=== PATIENT | male | born 1935 | race African-American/Black ===

== ENCOUNTER 2016-04-14 11:56 | Inpatient (IN) | payer OTHER ==
[2016-04-14 13:37] VITALS: BMI 36.6
--- NOTE | 2016-04-14 14:11 | HP ---
CIWA Score - CIWA Score Nausea/Vomitin Muscle Tremors: 3 Anxiety: 3 Agitation: 2 Paroxysmal Sweats: 2 Orientation: 0-Oriented Tacttile Disturbances: 2-Mild Itch/Numbness/Burn Auditory Disturbances: 2-Mild Harshness/Frighten Visual Disturbances: 2-Mild Sensitivity Headache: 2-Mild CIWA-Ar Total Score: 21 Admission ROS BHS - HPI Chief Complaint: I AM HERE FOR THE HELP TO STOP DRINKING Allergies/Adverse Reactions: Allergies Allergy/AdvReac Type Severity Reaction Status Date / Time No Known Allergies Allergy Verified 04/14/16 14:05 History of Present Illness: THIS 81 YEARS OLD MALE WITH ALCOHOL DEPENDENCE,WITHDRAWAL SYMPTOM,NEVER BEEN IN DETOX BEFORE, SEEN IN [facility] LAST NIGHT REFER FOR DETOX HTN FREQUENT FALL BORDERLINE DM GLAUCOMA INSOMNIA Exam Limitations: No Limitations - Ebola screening Have you traveled outside of the country in the last 21 days: No Have you been sick,other than usual withdrawal symptoms: No - Review of Systems Constitutional: Loss of Appetite, Malaise, Night Sweats, Changes in sleep EENT: reports: Nose Congestion Respiratory: reports: Other (ASTHMA) Cardiac: reports: No Symptoms Reported GI: reports: Nausea, Poor Appetite, Abdominal cramping : reports: No Symptoms Reported Musculoskeletal: reports: Back Pain, Muscle Pain Integumentary: reports: Dryness Neuro: reports: Headache, Tremors Endocrine: reports: No Symptoms Reported Hematology: reports: No Symptoms Reported Psychiatric: reports: other (INSOMNIA) Patient History - Patient Medical History Hx Anemia: No Hx Asthma: Yes (ON ALBUTEROL INHALER) Hx Chronic Obstructive Pulmonary Disease (COPD): No Hx Cancer: No Hx Cardiac Disorders: No Hx Congestive Heart Failure: No Hx Hypertension: Yes Hx Hypercholesterolemia: No Hx Pacemaker: No HX Cerebrovascular Accident: No Hx Seizures: No Hx Dementia: No Hx Diabetes: Yes (BODERLINE) Hx Gastrointestinal Disorders: No Hx Liver Disease: No Hx Genitourinary Disorders: No Hx Sexually Transmitted Disorders: No Hx Renal Disease (ESRD): No Hx Thyroid Disease: No Hx Human Immunodeficiency Virus (HIV): (NEVER BEEN TESTED BEFORE) Hx Hepatitis C: No Hx Depression: No Hx Suicide Attempt: No Hx Bipolar Disorder: No Hx Schizophrenia: No Other Medical History: INSOMNIA,NO SUICIDAL,NO HOMICIDAL - Patient Surgical History Hx Orthopedic Surgery: Yes (RIGHT KNEE REPLACEMENT IN 2005) - PPD History Previous Implant?: Yes Documented Results: Negative w/proof Implanted On Prior [facility] Admission?: No PPD to be Administered?: Yes - Smoking Cessation Smoking history: Never smoked - Substance & Tx. History Hx Alcohol Use: Yes Hx Substance Use: No Substance Use Type: Alcohol Hx Substance Use Treatment: No - Substances Abused Alcohol Route: Oral Frequency: Daily Amount used: 1-2 PINTS VODKA Age of first use: 17 Date of Last Use: 04/12/16 Family Disease History - Family Disease History Family Disease History: Other: Brother (ALCOHOL,) Admission Physical Exam [facility] - Vital Signs Vital Signs: Vital Signs - 24 hr 04/14/16 04/14/16 13:36 13:37 Temperature 97.4 F L 97.4 F L Pulse Rate 110 H 110 H Respiratory 20 20 Rate Blood Pressure 162/96 162/96 - Physical General Appearance: Yes: Moderate Distress, Tremorous, Irritable, Sweating, Anxious HEENTM: Yes: Nasal Congestion, Other (GLAUCOMA) Respiratory: Yes: Lungs Clear Neck: Yes: Within Normal Limits Breast: Yes: Within Normal Limits Cardiology: Yes: Tachycardia Abdominal: Yes: Normal Bowel Sounds, Non Tender, Flat, Soft Genitourinary: Yes: Within Normal Limits Back: Yes: Muscle Spasm Musculoskeletal: Yes: Muscle Pain Extremities: Yes: Tremors, Other (S/P RIGHT KNEE REPLACEMENT) 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 NML intact, Fully Oriented, Alert, Motor Strength 5/5 Integumentary: Yes: Dry Lymphatic: Yes: Within Normal Limits - Diagnostic (1) Alcohol dependence with uncomplicated withdrawal Current Visit: Yes Status: Acute (2) Syncope Current Visit: Yes Status: Acute (3) Frequent falls Current Visit: Yes Status: Acute (4) Essential hypertension Current Visit: Yes Status: Acute (5) Glaucoma, both eyes Current Visit: Yes Status: Acute (6) Insomnia Current Visit: Yes Status: Acute (7) Asthma Current Visit: Yes Status: Acute Cleared for Admission [facility] - Detox or Rehab [facility] Level of Care: Medically Managed Detox Regimen/Protocol: Librium [facility] Breath Alcohol Content Breath Alcohol Content: 0 Urine Drug Screen - Results Drug Screen Negative: Yes
[2016-04-14] MEDS ORDERED: diphenhydrAMINE HCL 50 MG CAPSULE PO PRN (14:45)
[2016-04-14] MEDS ORDERED: MAG HYDROX/AL HYDROX/SIMETH 30 ML UNIT-DOSE CUP PO PRN (14:45)
[2016-04-14] MEDS ORDERED: P-EPHED 60MG/TRIPROLIDI 2.5MG TABLET PO PRN (14:45)
[2016-04-14] MEDS ORDERED: MAGNESIUM HYDROX 2400MG/30ML ORAL SUSPENSION 30 ML CUP PO PRN (14:45)
[2016-04-14] MEDS ORDERED: IBUPROFEN 400 MG TABLET (FP) PO PRN (14:45)
[2016-04-14] MEDS ORDERED: ACETAMINOPHEN 325 MG TABLET (FP) PO PRN (14:45)
[2016-04-14] MEDS ORDERED: MENTHOL/PHENOL 1 EACH UD MM PRN (14:45)
[2016-04-14] MEDS ORDERED: MAGNESIUM CITRATE 300 ML BOTTLE PO PRN (14:45)
[2016-04-14] MEDS ORDERED: guaiFENesin/D-METHORPHAN HB 10 ML UNIT-DOSE CUPS PO PRN (14:45)
[2016-04-14] MEDS ORDERED: LOPERAMIDE HCL 2 MG CAPSULE PO PRN (14:45)
[2016-04-14] MEDS ORDERED: chlordiazePOXIDE HCL 25 MG CAPSULE PO PRN (14:45)
[2016-04-14] MEDS ORDERED: chlordiazePOXIDE HCL 25 MG CAPSULE PO ONE (15:18)
[2016-04-14] MEDS: chlordiazePOXIDE HCL 25 MG CAPSULE PO SCH ×2 (17:21→22:19)
[2016-04-14 20:53] LABS: URINE APPEARANCE CLEAR; URINE BILIRUBIN NEGATIVE (NEGATIVE); URINE COLOR LT. YELLOW; URINE GLUCOSE (UA) NEGATIVE (NEGATIVE); URINE KETONE TRACE (NEGATIVE); URINE LEUK ESTERASE NEGATIVE (NEGATIVE); URINE NITRITE NEGATIVE (NEGATIVE); URINE UROBILINOGEN 0.2 E.U/dl E.U./dl (0.2-1.0)
[2016-04-14 21:02] LABS: URINE BLOOD 1+ (NEGATIVE); URINE PROTEIN 1+ (NEGATIVE)
[2016-04-14] MEDS: THIAMINE HCL 100 MG TABLET (FP) PO SCH (22:19)
[2016-04-14] MEDS: ALBUTEROL SO4 6.7 GM HFA INHALER IH PRN (22:26)
[2016-04-14] MEDS: LATANOPROST 0.005% OPHTH SOLN 2.5ML BOTTLE OU SCH (22:26)
[2016-04-14 22:27] LABS: URINE RBC 2 /hpf (0-3); URINE WBC 3 /hpf (3-5)
[2016-04-14 22:28] LABS: URINE BACTERIA RARE /hpf (NONE SEEN); URINE HYALINE CAST 3 /lpf; URINE MUCUS RARE
[2016-04-15] MEDS: chlordiazePOXIDE HCL 25 MG CAPSULE PO SCH ×4 (05:49→22:22)
[2016-04-15 10:09] LABS: MCH 29.3 pg (25.7-33.7); MCHC 32.6 g/dl (32.0-35.9); MEAN CELL VOLUME 89.9 fl (80-96); MEAN PLT VOLUME 8.9 fl (7.5-11.1); PLATELET COUNT 255 K/MM3 (134-434); RDW 14.9 % (11.9-15.9); WHITE BLOOD COUNT 7.6 K/mm3 (4.0-10.0)
[2016-04-15 10:26] LABS: ALBUMIN 3.6 g/dl (3.4-5.0); ALK PHOS 98 U/L (45-117); ANION GAP 13 (8-16); BILIRUBIN,TOTAL 0.7 mg/dL (0.2-1.0); CALCIUM 8.7 mg/dL (8.5-10.1); CO2 26 mmol/L (21-32); CREATININE 1.1 mg/dL (0.7-1.3); GLUCOSE,RANDOM 165 mg/dL (74-106); SGOT/AST 106 U/L (15-37); SGPT/ALT 100 U/L (12-78); TOT PROT 7.3 g/dl (6.4-8.2)
[2016-04-15] MEDS: PRENATAL VITAMINS W/ FOLIC ACID TABLET (FP) PO SCH (10:33)
[2016-04-15] MEDS: NIFEdipine E.R 60 MG TABLET (UD) PO SCH (10:33)
[2016-04-15] MEDS: CARVEDILOL 25 MG TABLET (FP) PO SCH (10:33)
--- NOTE | 2016-04-15 11:18 | PN ---
[facility] CIWA - CIWA Score Nausea/Vomitin-No Nausea/No Vomiting Muscle Tremors: 4-Moderate,w/Arms Extend Anxiety: 4-Mod. Anxious/Guarded Agitation: 4-Moderately Restless Paroxysmal Sweats: 1-Minimal Palms Moist Orientation: 0-Oriented Tacttile Disturbances: 3-Moderate Itch/Numb/Burn Auditory Disturbances: 0-None Visual Disturbances: 0-None Headache: 0-None Present CIWA-Ar Total Score: 16 BHS Progress Note (SOAP) Subjective: ANXIETY,SLIGHT TREMORS, SWEATS. Objective: 04/15/16 11:17 Vital Signs Temperature 98.3 F 04/15/16 09:51 Pulse Rate 72 04/15/16 09:51 Respiratory Rate 18 04/15/16 09:51 Blood Pressure 151/97 04/15/16 09:51 O2 Sat by Pulse Oximetry (%) Laboratory Last Values WBC 7.6 K/mm3 (4.0-10.0) 04/15/16 06:00 RBC 5.35 M/mm3 (4.00-5.60) 04/15/16 06:00 Hgb 15.7 GM/dL (11.7-16.9) 04/15/16 06:00 Hct 48.0 % (35.4-49) 04/15/16 06:00 MCV 89.9 fl (80-96) 04/15/16 06:00 MCHC 32.6 g/dl (32.0-35.9) 04/15/16 06:00 RDW 14.9 % (11.9-15.9) 04/15/16 06:00 Plt Count 255 K/MM3 (134-434) 04/15/16 06:00 MPV 8.9 fl (7.5-11.1) 04/15/16 06:00 Sodium 135 mmol/L (136-145) L 04/15/16 06:00 Potassium 3.7 mmol/L (3.5-5.1) 04/15/16 06:00 Chloride 96 mmol/L (98-107) L 04/15/16 06:00 Carbon Dioxide 26 mmol/L (21-32) 04/15/16 06:00 Anion Gap 13 (8-16) 04/15/16 06:00 BUN 10 mg/dL (7-18) 04/15/16 06:00 Creatinine 1.1 mg/dL (0.7-1.3) 04/15/16 06:00 Creat Clearance w eGFR > 60 (>60) 04/15/16 06:00 Random Glucose 165 mg/dL (74-106) H 04/15/16 06:00 Calcium 8.7 mg/dL (8.5-10.1) 04/15/16 06:00 Total Bilirubin 0.7 mg/dL (0.2-1.0) 04/15/16 06:00 AST 106 U/L (15-37) H 04/15/16 06:00 ALT 100 U/L (12-78) H 04/15/16 06:00 Alkaline Phosphatase 98 U/L (45-117) 04/15/16 06:00 Total Protein 7.3 g/dl (6.4-8.2) 04/15/16 06:00 Albumin 3.6 g/dl (3.4-5.0) 04/15/16 06:00 Urine Color Lt. yellow 04/14/16 21:00 Urine Appearance Clear 04/14/16 21:00 Urine pH 6.0 (5.0-8.0) 04/14/16 21:00 Ur Specific [place] >= 1.030 (1.001-1.035) 04/14/16 21:00 Urine Protein 1+ (NEGATIVE) H 04/14/16 21:00 Urine Glucose (UA) Negative (NEGATIVE) 04/14/16 21:00 Urine Ketones Trace (NEGATIVE) H 04/14/16 21:00 Urine Blood 1+ (NEGATIVE) H 04/14/16 21:00 Urine Nitrite Negative (NEGATIVE) 04/14/16 21:00 Urine Bilirubin Negative (NEGATIVE) 04/14/16 21:00 Urine Urobilinogen 0.2 e.u/dl E.U./dl (0.2-1.0) 04/14/16 21:00 Ur Leukocyte Esterase Negative (NEGATIVE) 04/14/16 21:00 Urine RBC 2 /hpf (0-3) 04/14/16 21:00 Urine WBC 3 /hpf (3-5) 04/14/16 21:00 Ur Epithelial Cells Rare /hpf (FEW) 04/14/16 21:00 Urine Bacteria Rare /hpf (NONE SEEN) 04/14/16 21:00 Hyaline Casts 3 /lpf 04/14/16 21:00 Urine Mucus Rare 04/14/16 21:00 Assessment: 04/15/16 11:18 WITHDRAWAL SX Plan: CONTINUE DETOX
--- NOTE | 2016-04-15 16:06 | CONSULT ---
[facility] Psychiatric Consult - Data Date of interview: 04/15/16 Admission source: [facility] Identifying data: First admission to [facility] for this 81 y/o AA male seeking detox treatment on for alcohol dependence.Patient is ,a retired [employer],a father of five,domiciled (living with ) and supported on Social Security benefits. Substance Abuse History: - Smoking Cessation. Smoking history: Never smoked. - Substance & Tx. History. Hx Alcohol Use: Yes. Hx Substance Use: No. Substance Use Type: Alcohol. Hx Substance Use Treatment: No. - Substances Abused. Alcohol. Route: Oral. Frequency: Daily. Amount used: 1-2 PINTS VODKA. Age of first use: 17. Date of Last Use: 04/12/16. Confirmed by patient. Medical History: Significant for hypertension,diabetes mellitus,glaucoma, bronchial asthma and a history of right knee replacement (2005). Psychiatric History: Patient denies. Physical/Sexual Abuse/Trauma History: Patient denies. Additional Comment: Drug Screen is negative. Mental Status Exam - Mental Status Exam Alert and Oriented to: Time, Place, Person Cognitive Function: Grossly Intact Patient Appearance: Well Groomed Mood: Withdrawn Affect: Appropriate, Normal Range Patient Behavior: Fatigued, Talkative (well mannered), Appropriate, Cooperative Speech Pattern: Clear, Appropriate Voice Loudness: Normal Thought Process: Goal Oriented Hallucinations: Denies Suicidal Ideation: Denies Homicidal Ideation: Denies Insight/Judgement: Poor Sleep: Poorly, Difficulty falling asleep Appetite: Fair Gait/Station: Other (prone to frequent falls as per [facility] report;wheelchair made available to the patient for his movements around the unit) Psychiatric Findings - Problem List ([place] 1, 2,3) (1) Alcohol dependence with uncomplicated withdrawal Current Visit: Yes Status: Acute (2) Asthma Current Visit: Yes Status: Chronic (3) Essential hypertension Current Visit: Yes Status: Chronic (4) Frequent falls Current Visit: Yes Status: Chronic (5) Glaucoma, both eyes Current Visit: Yes Status: Chronic (6) Insomnia Current Visit: Yes Status: Chronic (7) Syncope Current Visit: Yes Status: Chronic Comment: History. - Initial Treatment Plan Initial Treatment Plan: Psychoeducation.detoxification.Insomnia is addressed with benadryl 25 mg po hs prn at bedtime.Side effects/benefits discussed with patient.He agrees with this plan of care.Fall precautions.Observation.
[2016-04-15] MEDS: ALBUTEROL SO4 6.7 GM HFA INHALER IH PRN (18:39)
[2016-04-15] MEDS ORDERED: diphenhydrAMINE HCL 25 MG CAPSULE (FP) PO PRN (22:00)
[2016-04-15] MEDS: hydrOXYzine PAMOATE 25 MG CAPSULE (FP) PO PRN (22:22)
[2016-04-15] MEDS: cloNIDine HCL 0.1 MG TABLET PO PRN (22:22)
[2016-04-15] MEDS: THIAMINE HCL 100 MG TABLET (FP) PO SCH (22:22)
[2016-04-15] MEDS: LATANOPROST 0.005% OPHTH SOLN 2.5ML BOTTLE OU SCH (22:24)
[2016-04-16] MEDS: chlordiazePOXIDE HCL 25 MG CAPSULE PO SCH ×2 (06:06→10:51)
--- NOTE | 2016-04-16 10:06 | PN ---
[facility] CIWA - CIWA Score Nausea/Vomitin-No Nausea/No Vomiting Muscle Tremors: 4-Moderate,w/Arms Extend Anxiety: 4-Mod. Anxious/Guarded Agitation: 4-Moderately Restless Paroxysmal Sweats: 1-Minimal Palms Moist Orientation: 0-Oriented Tacttile Disturbances: 3-Moderate Itch/Numb/Burn Auditory Disturbances: 0-None Visual Disturbances: 0-None Headache: 0-None Present CIWA-Ar Total Score: 16 BHS Progress Note (SOAP) Subjective: ANXIETY,SLIGHT TREMORS,. Objective: 04/16/16 10:05 Vital Signs Temperature 96.9 F L 04/16/16 10:04 Pulse Rate 96 H 04/16/16 10:04 Respiratory Rate 20 04/16/16 10:04 Blood Pressure 153/93 04/16/16 10:04 O2 Sat by Pulse Oximetry (%) Laboratory Last Values WBC 7.6 K/mm3 (4.0-10.0) 04/15/16 06:00 RBC 5.35 M/mm3 (4.00-5.60) 04/15/16 06:00 Hgb 15.7 GM/dL (11.7-16.9) 04/15/16 06:00 Hct 48.0 % (35.4-49) 04/15/16 06:00 MCV 89.9 fl (80-96) 04/15/16 06:00 MCHC 32.6 g/dl (32.0-35.9) 04/15/16 06:00 RDW 14.9 % (11.9-15.9) 04/15/16 06:00 Plt Count 255 K/MM3 (134-434) 04/15/16 06:00 MPV 8.9 fl (7.5-11.1) 04/15/16 06:00 Sodium 135 mmol/L (136-145) L 04/15/16 06:00 Potassium 3.7 mmol/L (3.5-5.1) 04/15/16 06:00 Chloride 96 mmol/L (98-107) L 04/15/16 06:00 Carbon Dioxide 26 mmol/L (21-32) 04/15/16 06:00 Anion Gap 13 (8-16) 04/15/16 06:00 BUN 10 mg/dL (7-18) 04/15/16 06:00 Creatinine 1.1 mg/dL (0.7-1.3) 04/15/16 06:00 Creat Clearance w eGFR > 60 (>60) 04/15/16 06:00 Random Glucose 165 mg/dL (74-106) H 04/15/16 06:00 Calcium 8.7 mg/dL (8.5-10.1) 04/15/16 06:00 Total Bilirubin 0.7 mg/dL (0.2-1.0) 04/15/16 06:00 AST 106 U/L (15-37) H 04/15/16 06:00 ALT 100 U/L (12-78) H 04/15/16 06:00 Alkaline Phosphatase 98 U/L (45-117) 04/15/16 06:00 Total Protein 7.3 g/dl (6.4-8.2) 04/15/16 06:00 Albumin 3.6 g/dl (3.4-5.0) 04/15/16 06:00 Urine Color Lt. yellow 04/14/16 21:00 Urine Appearance Clear 04/14/16 21:00 Urine pH 6.0 (5.0-8.0) 04/14/16 21:00 Ur Specific [place] >= 1.030 (1.001-1.035) 04/14/16 21:00 Urine Protein 1+ (NEGATIVE) H 04/14/16 21:00 Urine Glucose (UA) Negative (NEGATIVE) 04/14/16 21:00 Urine Ketones Trace (NEGATIVE) H 04/14/16 21:00 Urine Blood 1+ (NEGATIVE) H 04/14/16 21:00 Urine Nitrite Negative (NEGATIVE) 04/14/16 21:00 Urine Bilirubin Negative (NEGATIVE) 04/14/16 21:00 Urine Urobilinogen 0.2 e.u/dl E.U./dl (0.2-1.0) 04/14/16 21:00 Ur Leukocyte Esterase Negative (NEGATIVE) 04/14/16 21:00 Urine RBC 2 /hpf (0-3) 04/14/16 21:00 Urine WBC 3 /hpf (3-5) 04/14/16 21:00 Ur Epithelial Cells Rare /hpf (FEW) 04/14/16 21:00 Urine Bacteria Rare /hpf (NONE SEEN) 04/14/16 21:00 Hyaline Casts 3 /lpf 04/14/16 21:00 Urine Mucus Rare 04/14/16 21:00 RPR Titer Nonreactive (NONREACTIVE) 04/15/16 06:00 Assessment: 04/16/16 10:06 WITHDRAWAL SX Plan: CONTINUE DETOX
[2016-04-16] MEDS: CARVEDILOL 25 MG TABLET (FP) PO SCH (10:51)
[2016-04-16] MEDS: NIFEdipine E.R 60 MG TABLET (UD) PO SCH (10:51)
[2016-04-16] MEDS: PRENATAL VITAMINS W/ FOLIC ACID TABLET (FP) PO SCH (10:52)
[2016-04-16] MEDS: chlordiazePOXIDE 5 MG CAPSULE PO SCH ×2 (17:40→22:28)
[2016-04-16] MEDS: ALBUTEROL SO4 6.7 GM HFA INHALER IH PRN (22:28)
[2016-04-16] MEDS: THIAMINE HCL 100 MG TABLET (FP) PO SCH (22:28)
[2016-04-16] MEDS: LATANOPROST 0.005% OPHTH SOLN 2.5ML BOTTLE OU SCH (22:28)
[2016-04-16] MEDS: hydrOXYzine PAMOATE 25 MG CAPSULE (FP) PO PRN (22:30)
--- NOTE | 2016-04-16 23:59 | EKG ---
Test Reason : Blood Pressure : / mmHG Vent. Rate : 118 BPM Atrial Rate : 117 BPM P-R Int : 200 ms QRS Dur : 084 ms QT Int : 348 ms P-R-T Axes : 038 -08 127 degrees QTc Int : 487 ms POOR DATA QUALITY, INTERPRETATION MAY BE ADVERSELY AFFECTED APPEARS TO BE SINUS TACHYCARDIA WITH PVCS MINIMAL VOLTAGE CRITERIA FOR LVH, MAY BE NORMAL VARIANT SEPTAL INFARCT , AGE UNDETERMINED T WAVE ABNORMALITY, CONSIDER LATERAL ISCHEMIA ABNORMAL ECG NO PREVIOUS ECGS AVAILABLE Confirmed by JULIO ROSA MD ([id number]) on 04/16/2016 11:59:17 PM Referred By: Elan Ambrocio Confirmed By:JULIO ROSA MD
[2016-04-17] MEDS: chlordiazePOXIDE 5 MG CAPSULE PO SCH ×2 (05:46→10:42)
[2016-04-17] MEDS: cloNIDine HCL 0.1 MG TABLET PO PRN (06:59)
[2016-04-17] MEDS: PRENATAL VITAMINS W/ FOLIC ACID TABLET (FP) PO SCH (10:42)
[2016-04-17] MEDS: CARVEDILOL 25 MG TABLET (FP) PO SCH (10:42)
[2016-04-17] MEDS: NIFEdipine E.R 60 MG TABLET (UD) PO SCH (10:42)
--- NOTE | 2016-04-17 13:43 | PN ---
BHS Progress Note (SOAP) Subjective: ANXIETY,FATIGUE,SWEATS. Objective: 04/17/16 13:43 Vital Signs Temperature 96.6 F L 04/17/16 10:36 Pulse Rate 100 H 04/17/16 10:36 Respiratory Rate 20 04/17/16 10:36 Blood Pressure 148/75 04/17/16 10:36 O2 Sat by Pulse Oximetry (%) Assessment: 04/17/16 13:43 WITHDRAWAL SX Plan: CONTINUE DETOX
[2016-04-17] MEDS: chlordiazePOXIDE HCL 10 MG CAPSULE PO SCH ×2 (17:47→22:30)
[2016-04-17] MEDS: LATANOPROST 0.005% OPHTH SOLN 2.5ML BOTTLE OU SCH (22:29)
[2016-04-17] MEDS: THIAMINE HCL 100 MG TABLET (FP) PO SCH (22:29)
[2016-04-17] MEDS: hydrOXYzine PAMOATE 25 MG CAPSULE (FP) PO PRN (22:31)
[2016-04-18] MEDS: chlordiazePOXIDE HCL 10 MG CAPSULE PO SCH (05:51)
[2016-04-18] MEDS: cloNIDine HCL 0.1 MG TABLET PO PRN (05:52)
[2016-04-18 09:55] VITALS: BP 160/89; PULSE 98; TEMP 97.1
--- NOTE | 2016-04-18 11:48 | DS ---
[facility] Detox Discharge Summary Admission Date: 04/14/16 Discharge Date: 04/18/16 - History Present History: Alcohol Dependence Additional Comments: PT INSTRUCTED TO FOLLOW UP WITH PCP, DANETTE MARIN MD AT [address] [place] [address] FOR MEDICAL MANAGEMENT. Pertinent Past History: ASTHMA HTN GLAUCOMA, BOTH EYES HX FREQUENT FALLS - Physical Exam Results Vital Signs: Vital Signs Temperature 97.1 F L 04/18/16 09:55 Pulse Rate 98 H 04/18/16 09:55 Respiratory Rate 18 04/18/16 09:55 Blood Pressure 160/89 04/18/16 09:55 O2 Sat by Pulse Oximetry (%) Pertinent Admission Physical Exam Findings: WITHDRAWAL SX - Treatment Hospital Course: Detox Protocol Followed, Detoxed Safely, Responded well, Discharged Condition Good - Medication Discharge Medications: Ambulatory Orders Bimatoprost [Lumigan] 1 drop OU HS 04/14/16 Carvedilol [Coreg -] 25 mg PO DAILY 04/14/16 Mirtazapine [Remeron -] 7.5 mg PO HS 04/14/16 Nifedipine [Nifedipine ER] 60 mg PO DAILY 04/14/16 - Diagnosis (1) Alcohol dependence with uncomplicated withdrawal Status: Acute (2) Asthma Status: Chronic Qualifiers: Asthma severity: mild intermittent Asthma complication type: uncomplicated Qualified Code(s): J45.20 - Mild intermittent asthma, uncomplicated (3) Essential hypertension Status: Chronic (4) Frequent falls Status: Chronic (5) Glaucoma, both eyes Status: Chronic - AMA Did Patient Leave Against Medical Advice: No
== END 2016-04-18 09:51 | disposition home or self-care (01) ==
LOC: YASAS 11:56 → Y3N 14:56
PROVIDERS: ADMIT Internal Medicine; ATTEND Internal Medicine
CPT/HCPCS: 36415; 80053; 81003; 81015; 85027; 86593; 93005; 93010

== ENCOUNTER 2017-09-02 18:59 | Inpatient (IN) | payer OTHER ==
--- NOTE | 2017-09-02 19:28 | PDOC ---
History of Present Illness - General Chief Complaint: Weakness Stated Complaint: INTOXICATION Time Seen by Provider: 09/02/17 19:27 History Source: Patient, Spouse - History of Present Illness Initial Comments: 09/02/17 19:41 82-year-old Brought in by spouse and grandson status post unwitnessed fall while walking out of the bathroom. Patient reports that he has been feeling dizzy prior to the fall. Patient and reported that patient has been drinking wine this morning. Patient reports that he has been feeling depressed with occasional SI. Currently no suicide ideation and no plan.Patient reports that he has poor appetite and hasn't been eating well. Denies chest pain, shortness of breath, diaphoresis, nausea, vomiting, abdominal pain. Past medical history of hypertension, alcoholism, asthma, borderline diabetes PMD: Dr. Hernandez ([place]) Vascular surgery : Dr. Khan Past History - Past Medical History Allergies/Adverse Reactions: Allergies Allergy/AdvReac Type Severity Reaction Status Date / Time No Known Allergies Allergy Verified 09/02/17 19:20 Home Medications: Ambulatory Orders Bimatoprost [Lumigan] 1 drop OU HS 04/14/16 Carvedilol [Coreg -] 25 mg PO DAILY 04/14/16 Nifedipine [Nifedipine ER] 60 mg PO BID 04/14/16 Levalbuterol Tartrate [Xopenex Hfa] 15 gm IH DAILY 09/02/17 Anemia: No Asthma: Yes (ON ALBUTEROL INHALER) Cancer: No Cardiac Disorders: No CVA: No COPD: No CHF: No Dementia: No Diabetes: Yes (BODERLINE) GI Disorders: No Disorders: No HTN: Yes Hypercholesterolemia: No Kidney Stones: No Liver Disease: No Seizures: No Thyroid Disease: No - Surgical History Orthopedic Surgery: Yes (RIGHT KNEE REPLACEMENT IN 2005) - Reproductive History Testicular Surgery: No - Suicide/Smoking/Psychosocial Hx Smoking History: Never smoked Have you smoked in the past 12 months: No If you are a former smoker, when did you quit?: 1973 Hx Alcohol Use: Yes Drug/Substance Use Hx: No Substance Use Type: Alcohol Hx Substance Use Treatment: No Review of Systems - Review of Systems Able to Perform ROS?: Yes Is the patient limited Japanese proficient: No Constitutional: Yes: Weakness. No: Symptoms Reported, See HPI, Chills, Diaphoresis, Fever, Loss of Appetite, Malaise, Night Sweats, Weight Stable, Unintentional Wgt. Loss, Unexplained wgt Loss, Other *Physical Exam - Vital Signs Last Vital Signs Temp Pulse Resp BP Pulse Ox 97.3 F L 81 20 125/74 98 09/02/17 19:20 09/02/17 19:20 09/02/17 19:20 09/02/17 19:20 09/02/17 19:20 - Physical Exam General Appearance: Yes: Appropriately Dressed, Other (normcephalic) Respiratory/Chest: positive: Lungs Clear, Normal Breath Sounds Cardiovascular: positive: Regular Rhythm, Regular Rate Gastrointestinal/Abdominal: positive: Normal Bowel Sounds, Soft Musculoskeletal: positive: Normal Inspection Extremity: positive: Normal Capillary Refill, Normal Inspection, Normal Range of Motion Integumentary: positive: Normal Color, Dry, Warm Heart Score/ECG Review - History History: Slightly suspicious - Electrocardiogram EKG: Non specific repolarization disturbance - Age Age: >/= 65 - Risk Factors Risk Factors Heart Score: Yes Hx Hypertension, Yes Hx Diabetes Based on the list above the patient has:: 1-2 risk factors - Troponin Troponin: 1-3x normal limit - Score Heart Score - Total: 5 - ECG Intrepretation Rhythm: Regular Rhythm Comment:: 09/02/17 23:54 Sinus rhythm with sinus arrythmia with 1 st degree AV block ED Treatment Course - LABORATORY CBC & Chemistry Diagram: 09/02/17 19:50 09/02/17 20:45 Medical Decision Making - Medical Decision Making 09/02/17 23:56 Dr. Olmstead (Cardiology)covering Dr. Aleksandr peñaloza 09/02/17 23:59 09/03/17 00:[address] Olmstead . recommends serial troponins. 09/03/17 02:15 patient signed out to Dr. Pimentel. patient to be placed Tele/ obs *DC/Admit/Observation/Transfer Diagnosis at time of Disposition: Alcohol dependence with uncomplicated withdrawal, Syncope and collapse, Transaminitis, Elevated troponin level - Discharge Dispostion Decision to Admit order: Yes - Referrals - Patient Instructions - Post Discharge Activity
[2017-09-02] MEDS ORDERED: SODIUM CHLORIDE 1,000 ML IV SCH (19:45)
[2017-09-02 20:25] LABS: BASO % 0.5 % (0-2.0); EOS % 2.5 % (0-4.5); HEMATOCRIT 44.8 % (35.4-49); HEMOGLOBIN 14.8 GM/dL (11.7-16.9); LYMPH % 24.3 % (8-40); MCH 30.2 pg (25.7-33.7); MEAN CELL VOLUME 91.4 fl (80-96); MEAN PLT VOLUME 8.4 fl (7.5-11.1); MONO % 9.6 % (3.8-10.2); NEUT % 63.1 % (42.8-82.8); PLATELET COUNT 255 K/MM3 (134-434); RDW 14.9 % (11.9-15.9); WHITE BLOOD COUNT 4.6 K/mm3 (4.0-10.0)
[2017-09-02 21:17] LABS: INR 1.39 (0.82-1.09); PROTHROMBIN TIME (PATIENT) 15.7 SEC (9.7-13.0)
[2017-09-02] MEDS ORDERED: chlordiazePOXIDE HCL 25 MG CAPSULE PO ONE (22:45)
[2017-09-02] MEDS ORDERED: chlordiazePOXIDE HCL 25 MG CAPSULE ONE (22:45)
[2017-09-02 22:49] LABS: ALBUMIN 2.9 g/dl (3.4-5.0); ANION GAP 9 (8-16); BLOOD UREA NITROGEN 12 mg/dL (7-18); CALCIUM 7.6 mg/dL (8.5-10.1); CHLORIDE 102 mmol/L (98-107); CO2 28 mmol/L (21-32); GLUCOSE,RANDOM 270 mg/dL (74-106); POTASSIUM 3.6 mmol/L (3.5-5.1); SGOT/AST 317 U/L (15-37); SGPT/ALT 229 U/L (12-78); SODIUM 139 mmol/L (136-145); TRIGLYCERIDES 238 mg/dL (35-160)
[2017-09-02 22:53] LABS: ALK PHOS 84 U/L (45-117); BILIRUBIN,TOTAL 0.9 mg/dL (0.2-1.0); TOT PROT 7.2 g/dl (6.4-8.2)
[2017-09-02] MEDS ORDERED: FOLIC ACID INJECTION - 1 MG, THIAMINE HCL 100 MG, MULTIVIT INJECTION ADULT 10 ML in SOD... IVPB ONE (23:04)
[2017-09-02] MEDS ORDERED: ASPIRIN 81 MG CHEWABLE TABLETS PO ONE (23:53)
--- NOTE | 2017-09-03 00:21 | HP ---
CHIEF COMPLAINT: s/p fall, ETOH intoxication PCP: Dr. Patel HISTORY OF PRESENT ILLNESS: 82 yr old man with HTN, Asthma, b/l glaucoma, PVD, chronic ETOH use, bibems s/p fall this evening. He has been drinking "kisha wine" every night to help him sleep. This evening he was continuously sipping kisha beer in bed when he got up to use the bathroom, on his way back to the bed he fell. He called out to his grandson and who helped him up. At baseline he uses a cane but he was not using the cane during the event. denies chest pain, dizziness, palpitations, LOC, head trauma, vomiting, nausea, lightheadedness. says he drinks because he is worried about his family. his step-daughter was recently diagnosed with breast cancer and his sister(hxof DM and HTN) has a stroke and recently. endorses "other family stressors" that keep him up at night, requiring him to use alcohol to sleep and "ease his troubles" ER course was notable for: (1) (2) (3) Recent Travel: was in [place] a few weeks PAST MEDICAL HISTORY: HTN asthma glaucoma PVD hx of chronic wounds in legs - now healed. PAST SURGICAL HISTORY: "venous surgery" in right lower leg done by Dr. Ariadne Khan right knee replacement 12 yrs ago Social History: Smoking: former smoker Alcohol: chronic ETOH use, was in rehab at [facility]: denies Family History: [place] Allergies No Known Allergies Allergy (Verified 09/02/17 19:20) HOME MEDICATIONS: Home Medications Medication Instructions Recorded Bimatoprost [Lumigan] 1 drop OU HS 04/14/16 Carvedilol [Coreg -] 25 mg PO DAILY 04/14/16 Nifedipine [Nifedipine ER] 60 mg PO BID 04/14/16 Levalbuterol Tartrate [Xopenex Hfa] 15 gm IH DAILY 09/02/17 REVIEW OF SYSTEMS CONSTITUTIONAL: Present" 30lbs weight loss in past 6 months, loss of appetite, Absent: fever, chills, diaphoresis, generalized weakness, malaise, weight change HEENT: Absent: rhinorrhea, nasal congestion, throat pain, throat swelling, difficulty swallowing, mouth swelling, visual changes CARDIOVASCULAR: Absent: chest pain, syncope, palpitations, irregular heart rate, lightheadedness , peripheral edema RESPIRATORY: Absent: cough, shortness of breath, dyspnea with exertion, orthopnea, wheezing, stridor, hemoptysis GASTROINTESTINAL: Absent: abdominal pain, abdominal distension, nausea, vomiting, diarrhea, constipation, melena, hematochezia GENITOURINARY: Absent: dysuria, frequency, urgency, hesitancy, hematuria, flank pain, genital pain MUSCULOSKELETAL: Absent: myalgia, arthralgia, joint swelling, back pain, neck pain SKIN: Absent: rash, itching, pallor HEMATOLOGIC/IMMUNOLOGIC: Absent: easy bleeding, easy bruising, lymphadenopathy, frequent infections ENDOCRINE: Absent: unexplained weight gain, unexplained weight loss, heat intolerance, cold intolerance NEUROLOGIC: Absent: headache, focal weakness or paresthesias, dizziness, unsteady gait, seizure, mental status changes, bladder or bowel incontinence PHYSICAL EXAMINATION Vital Signs - 24 hr 09/02/17 19:20 Temperature 97.3 F L Pulse Rate 81 Respiratory 20 Rate Blood Pressure 125/74 O2 Sat by Pulse 98 Oximetry (%) GENERAL: Awake, alert, and fully oriented, in no acute distress. HEAD: Normal with no signs of trauma. EYES: left pupil asymmetric, extraocular movements intact, sclera anicteric, conjunctiva clear. EARS, NOSE, THROAT: Ears normal, nares patent, oropharynx clear without exudates. Moist mucous membranes. NECK: Normal range of motion, supple without lymphadenopathy, JVD, or masses. LUNGS: Breath sounds equal, clear to auscultation bilaterally. No wheezes, and no crackles. No accessory muscle use. HEART: Regular rate and rhythm, normal S1 and S2 without murmur, rub or gallop. ABDOMEN: obese, Soft, nontender, not distended, normoactive bowel sounds, no guarding, no rebound, no masses. MUSCULOSKELETAL: within Normal range of motion at all joints. No bony deformities or tenderness. No CVA tenderness. UPPER EXTREMITIES: 2+ radial pulses, warm, well-perfused. No cyanosis. No clubbing. No peripheral edema. LOWER EXTREMITIES: cool, well-perfused. No calf tenderness. +peripheral edema. NEUROLOGICAL: Cranial nerves II-XII intact. Normal speech. PSYCHIATRIC: Cooperative. Good eye contact. Appropriate mood and affect. SKIN: Warm, dry, normal turgor, no rashes or lesions noted, normal capillary refill. Laboratory Results - last 24 hr 09/02/17 09/02/17 09/02/17 19:50 19:50 19:50 WBC 4.6 D RBC 4.90 Hgb 14.8 Hct 44.8 MCV 91.4 MCH 30.2 MCHC 33.0 RDW 14.9 Plt Count 255 MPV 8.4 Neutrophils % 63.1 Lymphocytes % 24.3 Monocytes % 9.6 Eosinophils % 2.5 Basophils % 0.5 Nucleated RBC % 0 PT with INR 15.70 H INR 1.39 H Sodium Cancelled Potassium Cancelled Chloride Cancelled Carbon Dioxide Cancelled Anion Gap Cancelled BUN Cancelled Creatinine Cancelled Creat Clearance w eGFR Cancelled Random Glucose Cancelled Calcium Cancelled Total Bilirubin Cancelled AST Cancelled ALT Cancelled Alkaline Phosphatase Cancelled Creatine Kinase Cancelled Creatine Kinase Index CK-MB (CK-2) Troponin I Cancelled Total Protein Cancelled Albumin Cancelled Triglycerides Cancelled Alcohol, Quantitative Blood Type Antibody Screen 09/02/17 09/02/17 09/02/17 19:50 19:50 20:45 WBC RBC Hgb Hct MCV MCH MCHC RDW Plt Count MPV Neutrophils % Lymphocytes % Monocytes % Eosinophils % Basophils % Nucleated RBC % PT with INR INR Sodium 139 Potassium 3.6 Chloride 102 Carbon Dioxide 28 Anion Gap 9 BUN 12 Creatinine 1.0 Creat Clearance w eGFR > 60 Random Glucose 270 H D Calcium 7.6 L Total Bilirubin 0.9 D AST 317 H D ALT 229 H D Alkaline Phosphatase 84 Creatine Kinase 233 Creatine Kinase Index 2.1 CK-MB (CK-2) 5.052 H Troponin I 0.20 H Total Protein 7.2 Albumin 2.9 L Triglycerides 238 H Alcohol, Quantitative Cancelled Blood Type Cancelled Antibody Screen Cancelled 09/02/17 22:00 WBC RBC Hgb Hct MCV MCH MCHC RDW Plt Count MPV Neutrophils % Lymphocytes % Monocytes % Eosinophils % Basophils % Nucleated RBC % PT with INR INR Sodium Potassium Chloride Carbon Dioxide Anion Gap BUN Creatinine Creat Clearance w eGFR Random Glucose Calcium Total Bilirubin AST ALT Alkaline Phosphatase Creatine Kinase Creatine Kinase Index CK-MB (CK-2) Troponin I Total Protein Albumin Triglycerides Alcohol, Quantitative 197.80 H* Blood Type Antibody Screen Active Medications Carvedilol (Coreg -) 25 mg PO DAILY PEREZ Sodium Chloride (Normal Saline -) 1,000 mls @ 42 mls/hr IV ASDIR PEREZ Last Admin: 09/02/17 19:59 Dose: 42 mls/hr Folic Acid 1 mg/ Thiamine HCl 100 mg/ Multivitamins/Minerals 10 ml/ Sodium Chloride 1,000 mls @ 125 mls/hr IVPB ONCE ONE Stop: 09/03/17 07:03 Last Admin: 09/03/17 01:55 Dose: 125 mls/hr Non-Formulary Medication (Bimatoprost [Lumigan]) 1 drop OU HS PEREZ Non-Formulary Medication (Levalbuterol Tartrate [Xopenex Hfa]) 15 gm IH DAILY PEREZ Non-Formulary Medication (Nifedipine [Nifedipine Er]) 60 mg PO BID PEREZ ASSESSMENT/PLAN: 82 yr old man with chronic ETOH use, bibems s/p fall without LOC/head trauma found to have elevated troponins. #Elevated troponins, heart score 5, r/o ACS - dr. Brewer consulted, recommend trend trops - tele monitoring - echo #ETOH use/withdrawal - monitor for withdrawal s/s and start ativan 2mg po q6hr due to elevated liver enzymes rather than librium - counseled on cessation - IVF, thiamine, folic acid #Transminitis - likely due to ETOH use, r.o hepatitis, check hep panel - liver u/s #Asthma - controlled - xonepex(home med IH) is NF here, can be ordered as nebulizer if pt needs treatments #diet: low sodium #DVT: heparin #Physical therapy evalution #Dispo: recommend rehab Visit type - Emergency Visit Emergency Visit: Yes ED Registration Date: 09/03/17 Care time: The patient presented to the Emergency Department on the above date and was hospitalized for further evaluation of their emergent condition. - New Patient This patient is new to me today: Yes Date on this admission: 09/03/17 - Critical Care Critical Care patient: No Hospitalist Screening - Colonoscopy Questionnaire Colonoscopy Questionnaire: Colonoscopy Questionnaire - Patient: 50 - 75 years old and never had a screening colonoscopy: Unknown History of colon or rectal polyps, or CA: Unknown History of IBD, Crohn's disease or UC: Unknown History of abdominal radiation therapy as a child: Unknown - Relative: 1 with colon or rectal CA, or polyps at age 60 or younger: Unknown Colon or rectal CA diagnosed at age 45 or younger: Unknown Multiple relatives with colon or rectal CA: Unknown - Outcome: Screening Result: Negative Screen
[2017-09-03] MEDS ORDERED: ASPIRIN 81 MG CHEWABLE TABLETS ONE (01:57)
[2017-09-03 03:29] LABS: URINE APPEARANCE CLEAR; URINE BILIRUBIN NEGATIVE (<2.0 mg/dL); URINE BLOOD NEGATIVE (NEGATIVE); URINE COLOR LTYELLOW; URINE GLUCOSE (UA) 1+ (NEGATIVE); URINE KETONE NEGATIVE (NEGATIVE); URINE LEUK ESTERASE NEGATIVE (NEGATIVE); URINE NITRITE NEGATIVE (NEGATIVE); URINE PROTEIN NEGATIVE (NEGATIVE); URINE UROBILINOGEN NEGATIVE mg/dL (0.2-1.0)
[2017-09-03 03:37] LABS: COCAINE, UR NEGATIVE ng/ml (CUTOFF=300); METHADONE, UR NEGATIVE ng/ml (CUTOFF=300); OPIATES, URI NEGATIVE ng/ml (CUTOFF=300); PHENCYCLIDINE,URINE NEGATIVE ng/ml (CUTOFF=25); URINE AMPHETAMINES NEGATIVE ng/ml (CUTOFF=500); URINE BARBITURATES NEGATIVE ng/ml (CUTOFF=200); URINE BENZODIAZEPINES NEGATIVE ng/ml (CUTOFF=200)
[2017-09-03] MEDS ORDERED: LORazepam 1 MG TABLET PO PRN (04:58)
--- NOTE | 2017-09-03 05:45 | PN ---
Teaching Attending Note Name of Resident: Tom Engle ATTENDING PHYSICIAN STATEMENT I saw and evaluated the patient. Chart, data, imaging reviewed. I reviewed the resident's note and discussed the case with the resident. I agree with the resident's findings and plan as documented. SUBJECTIVE: 82 yr old man with HTN, Asthma, PVD, chronic ETOH use, brought in by ems after a fall on 09/02 at his home. He recalls the fall, states that it was mechanical and that there was no LOC, chest pain, or trauma to head. Pt says that he drinks every day because he is depressed. OBJECTIVE: Last Vital Signs Temp Pulse Resp BP Pulse Ox 97.3 F L 80 18 114/61 98 09/02/17 19:20 09/03/17 00:24 09/03/17 00:24 09/03/17 00:24 09/03/17 00:24 general- nad, aaox3 heent- normocephalic, nontraumatic cv-s1+s2+rrr chest -cta b/l abdomen- soft, obese, bs+, no masses appreciated Ext -tremelous upper extremities skin- no rashes Abnormal Lab Results 09/02/17 09/02/17 09/02/17 19:50 20:45 22:00 PT with INR 15.70 H INR 1.39 H Random Glucose 270 H D Calcium 7.6 L AST 317 H D ALT 229 H D CK-MB (CK-2) 5.052 H Troponin I 0.20 H Albumin 2.9 L Triglycerides 238 H Urine Glucose (UA) Alcohol, Quantitative 197.80 H* 09/03/17 09/03/17 02:22 03:05 PT with INR INR Random Glucose Calcium AST ALT CK-MB (CK-2) Troponin I 0.18 H Albumin Triglycerides Urine Glucose (UA) 1+ H Alcohol, Quantitative CT of C spine and head reviewed. No acute bleeds or masses seen ASSESSMENT AND PLAN: 82yo man with etoh abuse presenting after a mechanical fall with mildly positive troponin- less likely to be ACS. #Fall -probably mechanical in nature as pt was intoxicated with etoh at that time. No evidence of fracture on exam or imaging. -tele-observation -transthoracic echo -tylenol prn if pain -fall precautions -PT for gait evaluation #EtOH abuse -thiamine -folate -CIWA -ativan 2mg PO q 6hrs #Tropinemia- less likely acs -trend troponins -ekg -transthoracic echo #DVT ppx - heparin sc
[2017-09-03 07:42] LABS: BASO % 0.5 % (0-2.0); EOS % 1.2 % (0-4.5); HEMOGLOBIN 14.4 GM/dL (11.7-16.9); LYMPH % 13.8 % (8-40); MCH 30.3 pg (25.7-33.7); MCHC 32.7 g/dl (32.0-35.9); MEAN CELL VOLUME 92.8 fl (80-96); MEAN PLT VOLUME 8.9 fl (7.5-11.1); MONO % 7.5 % (3.8-10.2); PLATELET COUNT 180 K/MM3 (134-434); RBC 4.74 M/mm3 (4.00-5.60); RDW 14.6 % (11.9-15.9); WHITE BLOOD COUNT 4.9 K/mm3 (4.0-10.0)
[2017-09-03 07:58] LABS: CHLORIDE 104 mmol/L (98-107); SODIUM 139 mmol/L (136-145)
[2017-09-03 07:59] LABS: BLOOD UREA NITROGEN 12 mg/dL (7-18)
[2017-09-03 08:05] LABS: ALBUMIN 2.8 g/dl (3.4-5.0); ALK PHOS 78 U/L (45-117); ANION GAP 10 (8-16); BILIRUBIN,TOTAL 1.2 mg/dL (0.2-1.0); CALCIUM 7.4 mg/dL (8.5-10.1); CO2 25 mmol/L (21-32); CREATININE 0.8 mg/dL (0.7-1.3); GLUCOSE,RANDOM 191 mg/dL (74-106); PHOSPHOROUS 2.7 mg/dL (2.5-4.9); TOT PROT 6.7 g/dl (6.4-8.2)
[2017-09-03 08:07] LABS: MAGNESIUM 1.7 mg/dL (1.8-2.4); SGOT/AST 921 U/L (15-37); SGPT/ALT 570 U/L (12-78)
[2017-09-03 08:08] LABS: POTASSIUM 3.7 mmol/L (3.5-5.1)
[2017-09-03] MEDS ORDERED: FOLIC ACID INJECTION - 1 MG, THIAMINE HCL 100 MG, MULTIVIT INJECTION ADULT 10 ML in SOD... IVPB ONE (09:00)
[2017-09-03] MEDS ORDERED: PATIENT'S OWN MEDICATION (NON-FORMULARY) (Levalbuterol Tartrate [Xopenex Hfa] 15 GM) IH SCH (10:00)
[2017-09-03] MEDS ORDERED: MAGNESIUM OXIDE 400 MG TABLET (FP) PO ONE (10:00)
[2017-09-03 10:23] LABS: CHOLESTEROL 64 mg/dL (50-200); HDL CHOLESTEROL 67 mg/dL (40-60); TRIGLYCERIDES 134 mg/dL (35-160)
[2017-09-03] MEDS: PRENATAL VITAMINS W/ FOLIC ACID TABLET (FP) PO SCH (11:02)
[2017-09-03] MEDS: NIFEdipine E.R 60 MG TABLET (UD) PO SCH ×2 (11:02→21:06)
[2017-09-03] MEDS: CARVEDILOL 25 MG TABLET (FP) PO SCH (11:02)
[2017-09-03] MEDS: THIAMINE HCL 100 MG TABLET (FP) PO SCH ×2 (11:02→21:06)
[2017-09-03] MEDS ORDERED: MAGNESIUM SULF 50% (8.12 MEQ/2 ML-1 GM VIAL) IVPB ONE (11:24)
--- NOTE | 2017-09-03 11:39 | PN ---
Physical Exam: SUBJECTIVE: Patient seen and examined at bedside. No acute complaints at this time. Pt states he's been feeling depressed for the last few months and has been drinking to cope. OBJECTIVE: Vital Signs Period Temp Pulse Resp BP Sys/Romero Pulse Ox Last 24 Hr 97.3 F-98.3 F 80-96 18-20 114-152/61-88 98-98 Gen: lying comfortably in NAD HEENT: NCAT, L pupil superior coloboma and nonreactive to light, R pupil reactive, EOMI, moist mucous membranes NECK: supple, no JVD, no bruits, no thyromegally Cor: RRR, normal S1, S2, No murmurs, rubs, gallops Pulm: CTA b/l Abd: Obese, soft, nontender, no organomegally Ext: no edema, 2+ pulses Neuro: no focal deficits. Strength 5/5, sensation intact throughout Laboratory Results - last 24 hr 09/02/17 09/02/17 09/02/17 19:50 19:50 19:50 WBC 4.6 D RBC 4.90 Hgb 14.8 Hct 44.8 MCV 91.4 MCH 30.2 MCHC 33.0 RDW 14.9 Plt Count 255 MPV 8.4 Neutrophils % 63.1 Lymphocytes % 24.3 Monocytes % 9.6 Eosinophils % 2.5 Basophils % 0.5 Nucleated RBC % 0 PT with INR 15.70 H INR 1.39 H Sodium Cancelled Potassium Cancelled Chloride Cancelled Carbon Dioxide Cancelled Anion Gap Cancelled BUN Cancelled Creatinine Cancelled Creat Clearance w eGFR Cancelled Random Glucose Cancelled Calcium Cancelled Phosphorus Magnesium Total Bilirubin Cancelled AST Cancelled ALT Cancelled Alkaline Phosphatase Cancelled Creatine Kinase Cancelled Creatine Kinase Index CK-MB (CK-2) Troponin I Cancelled Total Protein Cancelled Albumin Cancelled Triglycerides Cancelled Cholesterol Total LDL Cholesterol HDL Cholesterol Urine Color Urine Appearance Urine pH Ur Specific [place] Urine Protein Urine Glucose (UA) Urine Ketones Urine Blood Urine Nitrite Urine Bilirubin Urine Urobilinogen Ur Leukocyte Esterase Opiates Screen Methadone Screen Acetaminophen Barbiturate Screen Phencyclidine Screen Ur Amphetamines Screen MDMA (Ecstasy) Screen Benzodiazepines Screen Cocaine Screen U Marijuana (THC) Screen Alcohol, Quantitative Blood Type Antibody Screen 09/02/17 09/02/17 09/02/17 19:50 19:50 20:45 WBC RBC Hgb Hct MCV MCH MCHC RDW Plt Count MPV Neutrophils % Lymphocytes % Monocytes % Eosinophils % Basophils % Nucleated RBC % PT with INR INR Sodium 139 Potassium 3.6 Chloride 102 Carbon Dioxide 28 Anion Gap 9 BUN 12 Creatinine 1.0 Creat Clearance w eGFR > 60 Random Glucose 270 H D Calcium 7.6 L Phosphorus Magnesium Total Bilirubin 0.9 D AST 317 H D ALT 229 H D Alkaline Phosphatase 84 Creatine Kinase 233 Creatine Kinase Index 2.1 CK-MB (CK-2) 5.052 H Troponin I 0.20 H Total Protein 7.2 Albumin 2.9 L Triglycerides 238 H Cholesterol Total LDL Cholesterol HDL Cholesterol Urine Color Urine Appearance Urine pH Ur Specific [place] Urine Protein Urine Glucose (UA) Urine Ketones Urine Blood Urine Nitrite Urine Bilirubin Urine Urobilinogen Ur Leukocyte Esterase Opiates Screen Methadone Screen Acetaminophen Barbiturate Screen Phencyclidine Screen Ur Amphetamines Screen MDMA (Ecstasy) Screen Benzodiazepines Screen Cocaine Screen U Marijuana (THC) Screen Alcohol, Quantitative Cancelled Blood Type Cancelled Antibody Screen Cancelled 09/02/17 09/03/17 09/03/17 22:00 02:22 03:05 WBC RBC Hgb Hct MCV MCH MCHC RDW Plt Count MPV Neutrophils % Lymphocytes % Monocytes % Eosinophils % Basophils % Nucleated RBC % PT with INR INR Sodium Potassium Chloride Carbon Dioxide Anion Gap BUN Creatinine Creat Clearance w eGFR Random Glucose Calcium Phosphorus Magnesium Total Bilirubin AST ALT Alkaline Phosphatase Creatine Kinase Creatine Kinase Index CK-MB (CK-2) Troponin I 0.18 H Total Protein Albumin Triglycerides Cholesterol Total LDL Cholesterol HDL Cholesterol Urine Color Ltyellow Urine Appearance Clear Urine pH 6.0 Ur Specific [place] 1.012 Urine Protein Negative Urine Glucose (UA) 1+ H Urine Ketones Negative Urine Blood Negative Urine Nitrite Negative Urine Bilirubin Negative Urine Urobilinogen Negative Ur Leukocyte Esterase Negative Opiates Screen Methadone Screen Acetaminophen Barbiturate Screen Phencyclidine Screen Ur Amphetamines Screen MDMA (Ecstasy) Screen Benzodiazepines Screen Cocaine Screen U Marijuana (THC) Screen Alcohol, Quantitative 197.80 H* Blood Type Antibody Screen 09/03/17 09/03/17 09/03/17 03:05 06:20 06:20 WBC 4.9 RBC 4.74 Hgb 14.4 Hct 44.0 MCV 92.8 MCH 30.3 MCHC 32.7 RDW 14.6 Plt Count 180 D MPV 8.9 Neutrophils % 77.0 D Lymphocytes % 13.8 D Monocytes % 7.5 Eosinophils % 1.2 Basophils % 0.5 Nucleated RBC % 0 PT with INR INR Sodium 139 Potassium 3.7 Chloride 104 Carbon Dioxide 25 Anion Gap 10 BUN 12 Creatinine 0.8 Creat Clearance w eGFR > 60 Random Glucose 191 H D Calcium 7.4 L Phosphorus 2.7 Magnesium 1.7 L Total Bilirubin 1.2 H D AST 921 H D ALT 570 H D Alkaline Phosphatase 78 Creatine Kinase Creatine Kinase Index CK-MB (CK-2) Troponin I Total Protein 6.7 Albumin 2.8 L Triglycerides 134 D Cholesterol 64 Total LDL Cholesterol 6 HDL Cholesterol 67 H Urine Color Urine Appearance Urine pH Ur Specific [place] Urine Protein Urine Glucose (UA) Urine Ketones Urine Blood Urine Nitrite Urine Bilirubin Urine Urobilinogen Ur Leukocyte Esterase Opiates Screen Negative Methadone Screen Negative Acetaminophen Barbiturate Screen Negative Phencyclidine Screen Negative Ur Amphetamines Screen Negative MDMA (Ecstasy) Screen Negative Benzodiazepines Screen Negative Cocaine Screen Negative U Marijuana (THC) Screen Negative Alcohol, Quantitative Blood Type Antibody Screen 09/03/17 09/03/17 09/03/17 06:20 09:05 09:05 WBC RBC Hgb Hct MCV MCH MCHC RDW Plt Count MPV Neutrophils % Lymphocytes % Monocytes % Eosinophils % Basophils % Nucleated RBC % PT with INR INR Sodium Potassium Chloride Carbon Dioxide Anion Gap BUN Creatinine Creat Clearance w eGFR Random Glucose Calcium Phosphorus Magnesium Total Bilirubin AST ALT Alkaline Phosphatase Creatine Kinase Creatine Kinase Index CK-MB (CK-2) Troponin I 0.20 H Total Protein Albumin Triglycerides Cancelled Cholesterol Cancelled Total LDL Cholesterol Cancelled HDL Cholesterol Cancelled Urine Color Urine Appearance Urine pH Ur Specific [place] Urine Protein Urine Glucose (UA) Urine Ketones Urine Blood Urine Nitrite Urine Bilirubin Urine Urobilinogen Ur Leukocyte Esterase Opiates Screen Methadone Screen Acetaminophen <10 Barbiturate Screen Phencyclidine Screen Ur Amphetamines Screen MDMA (Ecstasy) Screen Benzodiazepines Screen Cocaine Screen U Marijuana (THC) Screen Alcohol, Quantitative Blood Type Antibody Screen Active Medications Generic Name Dose Route Start Last Admin Trade Name Freq PRN Reason Stop Dose Admin Carvedilol 25 mg 09/03/17 10:00 09/03/17 11:02 Coreg - PO 25 mg DAILY PEREZ Administration Folic Acid 1 mg/ Thiamine HCl 1,000 mls @ 125 mls/hr 09/03/17 09:00 100 mg/ Multivitamins/Minerals IVPB 09/03/17 16:59 10 ml/ Sodium Chloride ONCE ONE Folic Acid 1 mg/ Thiamine HCl 1,000 mls @ 125 mls/hr 09/03/17 11:28 100 mg/ Multivitamins/Minerals IVPB 09/03/17 19:27 10 ml/ Sodium Chloride ONCE ONE Magnesium Sulfate 2 gm in 50 mls @ 50 mls/hr 09/03/17 12:00 Magnesium Sulf 2 G/50 Ml Bag IVPB 09/03/17 12:59 ONCE ONE Lorazepam 2 mg 09/03/17 04:58 Ativan - PO Q6H PRN ANXIETY Nifedipine 60 mg 09/03/17 10:00 09/03/17 11:02 Procardia Xl - PO 60 mg BID PEREZ Administration Non-Formulary Medication 1 drop 09/03/17 22:00 Bimatoprost [Lumigan] OU HS PEREZ Multivit/Folic Acid/Iron 1 tab 09/03/17 10:00 09/03/17 11:02 Vitamins (Sjr) - PO 1 tab DAILY PEREZ Administration Thiamine HCl 100 mg 09/03/17 10:00 09/03/17 11:02 Vitamin B1 - PO 100 mg BID PEREZ Administration ASSESSMENT/PLAN: 82 yr old man with chronic ETOH use, bibems s/p fall without LOC/head trauma found to have elevated troponins. #Elevated troponins, heart score 5, r/o ACS - dr. Brewer consulted - Trop trend - tele monitoring - echo unremarkable - Carotid u/s unremarkable #ETOH use - current CIWA 5 - monitor for withdrawal s/s and start ativan 2mg po q6hr due to elevated liver enzymes - counseled on cessation - IVF, thiamine, folic acid #Transminitis - likely due to ETOH use, check hepatitis panel - liver u/s sig for fatty liver #Asthma - controlled - xonepex(home med IH) is NF here, can be ordered as nebulizer if pt needs treatments #FEN -D5Ns -Pseudohypocalcemia, hypomagnesemia. repleting -diet: low sodium #PPx -heparin #Physical therapy evalution #Dispo -Admitted for EtOH withdrawal -recommend rehab Qasim Bernabe MD PGY-1 IM Visit type - Emergency Visit Emergency Visit: Yes ED Registration Date: 09/03/17 Care time: The patient presented to the Emergency Department on the above date and was hospitalized for further evaluation of their emergent condition. - New Patient This patient is new to me today: Yes Date on this admission: 09/03/17 - Critical Care Critical Care patient: No - Discharge Referral Referred to [facility] No
--- NOTE | 2017-09-03 11:46 | CON.CARD ---
Consult Consult Specialty:: Cardiology Referred by:: Abdoul Baig Reason for Consultation:: Troponin - History of Present Illness Chief Complaint: Fall History of Present Illness: 82 year old male with a pmhx of htn, asthma, glaucoma, pvd, and chronic etoh us who presents after fall. Was drinking in bed when got up to use the bathroom and on his way back he fell. No syncope, chest pain, sob, or palpitations. Spearfish weak. Called his family who helped him up. Currently with no complaints. - History Source History Provided By: Patient, Family Member, Medical Record - Alcohol/Substance Use Hx Alcohol Use: Yes - Smoking History Smoking history: Never smoked Have you smoked in the past 12 months: No If you are a former smoker, when did you quit?: 1972 Home Medications - Allergies Allergies/Adverse Reactions: Allergies Allergy/AdvReac Type Severity Reaction Status Date / Time No Known Allergies Allergy Verified 09/02/17 19:20 - Home Medications Home Medications: Ambulatory Orders Bimatoprost [Lumigan] 1 drop OU HS 04/14/16 Carvedilol [Coreg -] 25 mg PO DAILY 04/14/16 Nifedipine [Nifedipine ER] 60 mg PO BID 04/14/16 Levalbuterol Tartrate [Xopenex Hfa] 15 gm IH DAILY 09/02/17 Family Disease History - Family Disease History Family Disease History: Other: Brother (ALCOHOL,) Vital Signs: Vital Signs Temperature 98.3 F 09/03/17 11:00 Pulse Rate 91 H 09/03/17 11:00 Respiratory Rate 20 09/03/17 11:00 Blood Pressure 143/88 09/03/17 11:00 O2 Sat by Pulse Oximetry (%) 98 09/03/17 11:00 Constitutional: Yes: No Distress Neck: Yes: Supple Respiratory: Yes: CTA Bilaterally Gastrointestinal: Yes: Normal Bowel Sounds, Soft Cardiovascular: Yes: WNL, Regular Rate and Rhythm JVD: No Carotid Bruit: No PMI: Non-Displaced Heart Sounds: Yes: S1, S2 Murmur: No: Systolic Murmur Edema: No - Other Data Labs, Other Data: CBC, BMP 09/03/17 06:20 09/03/17 06:20 INR, PTT INR 1.39 (0.82-1.09) H 09/02/17 19:50 Troponin, BNP 09/02/17 09/02/17 09/03/17 19:50 20:45 02:22 Troponin I Cancelled 0.20 H 0.18 H 09/03/17 09:05 Troponin I 0.20 H Troponin, BNP 09/02/17 09/02/17 09/03/17 19:50 20:45 02:22 Troponin I Cancelled 0.20 H 0.18 H 09/03/17 09:05 Troponin I 0.20 H Imaging - Results Chest X-ray: Report Reviewed Assessment/Plan 82 year old male with a pmhx of htn, asthma, glaucoma, pvd, and chronic etoh us who presents after fall. Was drinking in bed when got up to use the bathroom and on his way back he fell. No syncope, chest pain, sob, or palpitations. Spearfish weak. Called his family who helped him up. Currently with no complaints. -Patient admitted with fall in setting of alcohol intoxication with elevated lfts. No cardiac complaints. No syncope, chest pain, sob, or palpitations. Trop 0.2 with nl CK. Cannot find ekg in ER and none scanned in to chart. No further cardiac work up is indicated for this patient unless patient with active acute ekg changes. Please call back if needed. F/u with cardiology as outpatient [phone]
[2017-09-03] MEDS ORDERED: MAGNESIUM SULFATE IN WATER 2 GM/50 ML IVPB IVPB ONE (12:00)
--- NOTE | 2017-09-03 13:26 | EKG ---
Test Reason : Blood Pressure : / mmHG Vent. 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
[2017-09-03] MEDS ORDERED: MAGNESIUM SULF 50% (8.12 MEQ/2 ML-1 GM VIAL) ONE (13:31)
[2017-09-03] MEDS: DEXTROSE 5%-0.45% SALINE 1,000 ML IV SCH (16:50)
--- NOTE | 2017-09-03 17:09 | PN ---
Teaching Attending Note Name of Resident: Qasim Bernabe ATTENDING PHYSICIAN STATEMENT I saw and evaluated the patient. I reviewed the resident's note and discussed the case with the resident. I agree with the resident's findings and plan as documented. SUBJECTIVE:asymptomatic. states he recalls feeling lightheaded prior to falling. no other symptoms. no previous falls. admits to drinking a lot lately due to stress but did not want to discuss details. denies CP, SOB, fever, chills , palpitations, N/V/C/D, LUND, auditory/visual hallucinations OBJECTIVE: Last Vital Signs Temp Pulse Resp BP Pulse Ox 98.3 F 87 18 142/69 98 09/03/17 15:03 09/03/17 15:03 09/03/17 15:03 09/03/17 15:03 09/03/17 15:03 General NAD CV S1 S2 RRR no murmur/rub/gallop Lungs CTA B/L no wheezing/rales/rhonchi Abdomen soft NT/ND obese no hepatomegaly Extremities tremor appreciated when touching ASSESSMENT AND PLAN: 82yo M with PMH continuous ETOH dependence, HTN and asthma presented to the ER after mechanical fall. In the ER stated to the ER staff about his depression and concern for suicide 1. Mechanical fall- likely due to acute intoxication at the time. will need to r /o syncope. continuous cardiac montoring. echo and carotid doppler pending. all imaging studies negative for fracture or acute intracranial pathology 2. Tropinemia- flat trend 0.2-0.18-0.2. no cardiac symptoms. no ischemia workup at this time. evaluated by cardio and can f/u as outpatient 3. Transaminitis- acute uptrend in LFT. some liekly due to ETOH however likely some insulting factor. check abdominal u/s, hepatitis panel. consider GI eval if continues to trend up 4. Hypomagnesemia- MG po and IV 5. Hypophosphatemia- neutraphos 6. Acute ETOH intoxication- appears may still be intoxicated and not actively withdrawing. slight tremor but no other symptoms. will monitor for withdrawal symtpoms. start ativan protocol if symptoms begin. give banana bag. cont IVF. not interested in inpatient rehab at this time. counselled on risks assoc with continued drinking and early 7. Major depression- noted in the ER to be tearful on exam and symptoms consistent with depression. psych consulted 8. DVT ppx- hep sq 9. spoke with present at bedside, updated on current plan. verbalized understanding and agreement with plan.
[2017-09-03] MEDS ORDERED: PROMETHAZINE HCL 25 MG/1 ML VIAL IVPB PRN (18:31)
[2017-09-03] MEDS: LATANOPROST 0.005% OPHTH SOLN 2.5ML BOTTLE OU SCH (21:38)
[2017-09-03] MEDS ORDERED: PATIENT'S OWN MEDICATION (NON-FORMULARY) (Bimatoprost [Lumigan] 1 DROP) OU SCH (22:00)
[2017-09-04] MEDS: DEXTROSE 5%-0.45% SALINE 1,000 ML IV SCH (06:39)
[2017-09-04 07:22] LABS: BASO % 0.8 % (0-2.0); HEMOGLOBIN 13.5 GM/dL (11.7-16.9); LYMPH % 21.7 % (8-40); MCH 30.7 pg (25.7-33.7); MCHC 33.7 g/dl (32.0-35.9); MEAN PLT VOLUME 8.7 fl (7.5-11.1); MONO % 8.7 % (3.8-10.2); NEUT % 64.8 % (42.8-82.8); PLATELET COUNT 181 K/MM3 (134-434); RDW 14.2 % (11.9-15.9); WHITE BLOOD COUNT 4.7 K/mm3 (4.0-10.0)
[2017-09-04 08:42] LABS: CHLORIDE 99 mmol/L (98-107); POTASSIUM 3.1 mmol/L (3.5-5.1); SODIUM 135 mmol/L (136-145)
[2017-09-04] MEDS ORDERED: FOLIC ACID INJECTION - 1 MG, THIAMINE HCL 100 MG, MULTIVIT INJECTION ADULT 10 ML in SOD... IVPB ONE (09:00)
[2017-09-04 09:08] LABS: ALBUMIN 2.7 g/dl (3.4-5.0); ALK PHOS 81 U/L (45-117); ANION GAP 11 (8-16); BILIRUBIN,TOTAL 1.2 mg/dL (0.2-1.0); BLOOD UREA NITROGEN 6 mg/dL (7-18); CALCIUM 7.7 mg/dL (8.5-10.1); CO2 25 mmol/L (21-32); CREATININE 0.7 mg/dL (0.7-1.3); GLUCOSE,RANDOM 152 mg/dL (74-106); MAGNESIUM 1.8 mg/dL (1.8-2.4); PHOSPHOROUS 1.6 mg/dL (2.5-4.9); TOT PROT 6.3 g/dl (6.4-8.2)
[2017-09-04 09:16] LABS: SGOT/AST 843 U/L (15-37); SGPT/ALT 661 U/L (12-78)
[2017-09-04] MEDS: NIFEdipine E.R 60 MG TABLET (UD) PO SCH ×2 (09:53→21:39)
[2017-09-04] MEDS: PRENATAL VITAMINS W/ FOLIC ACID TABLET (FP) PO SCH (09:53)
[2017-09-04] MEDS: THIAMINE HCL 100 MG TABLET (FP) PO SCH ×2 (09:53→21:39)
[2017-09-04] MEDS: CARVEDILOL 25 MG TABLET (FP) PO SCH (09:53)
[2017-09-04] MEDS ORDERED: MAGNESIUM OXIDE 400 MG TABLET (FP) PO ONE ×2 (12:53→15:15)
--- NOTE | 2017-09-04 12:53 | PN ---
Teaching Attending Note Name of Resident: Qasim Bernabe ATTENDING PHYSICIAN STATEMENT I saw and evaluated the patient. I reviewed the resident's note and discussed the case with the resident. I agree with the resident's findings and plan as documented. SUBJECTIVE:asymptomatic. states was a little lightheaded when he first woke up and got of bed this AM but no symptoms since. denies Cp, SOB, fever, chills, N/V /C/D, anxiety, visual/auditory hallucinations, OBJECTIVE: Last Vital Signs Temp Pulse Resp BP Pulse Ox 98 F 96 H 18 147/90 96 09/04/17 09:00 09/04/17 09:00 09/04/17 09:00 09/04/17 09:00 09/04/17 09:00 General NAD Lungs CTA B/L no wheezing/rales/rhonchi Abdomen soft NT/ND obese no hepatomegaly Extremities no tremor ASSESSMENT AND PLAN: 82yo M with PMH continuous ETOH dependence, HTN and asthma presented to the ER after mechanical fall. In the ER stated to the ER staff about his depression and concern for suicide 1. Mechanical fall- likely due to acute intoxication at the time. will need to r /o syncope. no events on monitor. echo and carotid normal. 2. Tropinemia- flat trend 0.2-0.18-0.2. no cardiac symptoms. no ischemia workup at this time. evaluated by cardio and can f/u as outpatient 3. Transaminitis- concern for ETOH hepatitis. discriminate function score 13.6, will not need steroids at this time. liver u/s showing fatty liver. hepatitis panel pending. will cont current management slowly trending down. will monitor. 4. Hypomagnesemia- MG po 5. Hypophosphatemia- neutraphos 6. hypokalemia- Kcl 7. Acute ETOH intoxication-CIWA 0. will hold treamtent at htis time. not interested inpatient rehab. 8. Major depression- noted in the ER to be tearful on exam and symptoms consistent with depression. no suicidal thoughts or plans. Pysch is unavailable at this time. can f/u with as outpatient 9. DVT ppx- hep sq 10. spoke with present at bedside, updated on current plan. verbalized understanding and agreement with plan.
[2017-09-04] MEDS ORDERED: SODIUM CHLORIDE 1,000 ML IV SCH (13:00)
[2017-09-04] MEDS ORDERED: MAG HYDROX/AL HYDROX/SIMETH 30 ML UNIT-DOSE CUP PO PRN (13:43)
[2017-09-04] MEDS ORDERED: POTASSIUM PHOSPHATE 30 MM in SODIUM CHLORIDE 250 ML IVPB ONE (13:45)
[2017-09-04 14:17] LABS: HEP.C VIRUS AB 0.2 s/co ratio (0.0-0.9)
[2017-09-04] MEDS: DOCUSATE SODIUM 100 MG CAPSULE (FP) PO SCH (15:10)
--- NOTE | 2017-09-04 17:16 | PN ---
Physical Exam: SUBJECTIVE: Patient seen and examined at bedside. No acute events. No complaints. OBJECTIVE: Vital Signs Period Temp Pulse Resp BP Sys/Romero Pulse Ox Last 24 Hr 98 F-98.5 F 84-107 18-20 113-147/67-90 94-96 Gen: lying comfortably in NAD HEENT: L pupil superior coloboma and reactive to light, R pupil reactive, EOMI, moist mucous membranes NECK: supple, no JVD, no bruits, no thyromegally Cor: RRR, normal S1, S2, No murmurs, rubs, gallops Pulm: CTA b/l Abd: Obese, soft, nontender, no organomegally Ext: no edema, 2+ pulses Neuro: no focal deficits. Strength 5/5, sensation intact throughout Laboratory Results - last 24 hr 09/03/17 09/04/17 09/04/17 09:05 00:13 05:52 WBC RBC Hgb Hct MCV MCH MCHC RDW Plt Count MPV Neutrophils % Lymphocytes % Monocytes % Eosinophils % Basophils % Nucleated RBC % Sodium Potassium Chloride Carbon Dioxide Anion Gap BUN Creatinine Creat Clearance w eGFR POC Glucometer 148 149 Random Glucose Calcium Phosphorus Magnesium Total Bilirubin AST ALT Alkaline Phosphatase Troponin I Total Protein Albumin Hepatitis A IgM Ab Negative Hep Bs Antigen Negative Hep B Core IgM Ab Negative Hepatitis C Antibody 0.2 09/04/17 09/04/17 09/04/17 06:03 06:03 06:03 WBC 4.7 RBC 4.40 Hgb 13.5 Hct 40.0 MCV 91.0 MCH 30.7 MCHC 33.7 RDW 14.2 Plt Count 181 MPV 8.7 Neutrophils % 64.8 Lymphocytes % 21.7 D Monocytes % 8.7 Eosinophils % 4.0 D Basophils % 0.8 Nucleated RBC % 0 Sodium 135 L Potassium 3.1 L Chloride 99 Carbon Dioxide 25 Anion Gap 11 BUN 6 L D Creatinine 0.7 Creat Clearance w eGFR > 60 POC Glucometer Random Glucose 152 H D Calcium 7.7 L Phosphorus 1.6 L D Magnesium 1.8 Total Bilirubin 1.2 H AST 843 H ALT 661 H Alkaline Phosphatase 81 Troponin I 0.20 H Total Protein 6.3 L Albumin 2.7 L Hepatitis A IgM Ab Hep Bs Antigen Hep B Core IgM Ab Hepatitis C Antibody Active Medications Generic Name Dose Route Start Last Admin Trade Name Freq PRN Reason Stop Dose Admin Al Hydroxide/Mg Hydroxide 30 ml 09/04/17 13:43 Mylanta Oral Suspension - PO Q6H PRN DYSPEPSIA Carvedilol 25 mg 09/03/17 10:00 09/04/17 09:53 Coreg - PO 25 mg DAILY PEREZ Administration Docusate Sodium 100 mg 09/04/17 13:45 09/04/17 15:10 Colace - PO 100 mg DAILY PEREZ Administration Potassium Phosphate 30 mm/ 260 mls @ 65 mls/hr 09/04/17 13:45 09/04/17 15:10 Sodium Chloride IVPB 09/04/17 17:44 65 mls/hr ONCE ONE Administration 30 MM/4 HR Sodium Chloride 1,000 mls @ 50 mls/hr 09/04/17 13:00 09/04/17 15:16 Normal Saline - IV 09/05/17 12:47 50 mls/hr ASDIR PEREZ Administration Latanoprost 1 drop 09/03/17 22:00 09/03/17 21:38 Xalatan 0.005% Eye Drops - OU 1 drop HS PEREZ Administration Lorazepam 2 mg 09/03/17 04:58 09/03/17 18:08 Ativan - PO 2 mg Q6H PRN Administration ANXIETY Nifedipine 60 mg 09/03/17 10:00 09/04/17 09:53 Procardia Xl - PO 60 mg BID PEREZ Administration Multivit/Folic Acid/Iron 1 tab 09/03/17 10:00 09/04/17 09:53 Vitamins (Sjr) - PO 1 tab DAILY PEREZ Administration Promethazine HCl 12.5 mg 09/03/17 18:31 Phenergan Injection - IVPB Q6H PRN NAUSEA AND/OR VOMITING Senna 1 tab 09/04/17 22:00 Senna - PO HS PEREZ Thiamine HCl 100 mg 09/03/17 10:00 09/04/17 09:53 Vitamin B1 - PO 100 mg BID PEREZ Administration ASSESSMENT/PLAN: 82 yr old man with chronic ETOH use, bibems s/p fall without LOC/head trauma found to have elevated troponins. #Elevated troponins, heart score 5, r/o ACS - dr. Brewer consulted - Trop trend - tele monitoring - echo unremarkable - Carotid u/s unremarkable #ETOH use - current CIWA 5 - monitor for withdrawal s/s and start ativan 2mg po q6hr due to elevated liver enzymes - counseled on cessation - IVF, thiamine, folic acid #Transminitis - likely due to ETOH use, check hepatitis panel - liver u/s sig for fatty liver -unresolved as of yet #Asthma - controlled - xonepex(home med IH) is NF here, can be ordered as nebulizer if pt needs treatments #FEN -D5Ns -hypophosphatemia, hypokalemia, repleting -diet: low sodium #PPx -heparin #Physical therapy evalution #Dispo -Admitted for EtOH withdrawal -recommend rehab Qasim Bernabe MD PGY-1 IM Visit type - Emergency Visit Emergency Visit: No - New Patient This patient is new to me today: No - Critical Care Critical Care patient: No - Discharge Referral Referred to [facility] Med P.C.: No
[2017-09-04] MEDS ORDERED: PT OWN MED DRAWER 7, Y5N ONE (21:33)
[2017-09-04] MEDS: LATANOPROST 0.005% OPHTH SOLN 2.5ML BOTTLE OU SCH (21:39)
[2017-09-04] MEDS: SENNOSIDES 8.6MG TABLET (FP) PO SCH (21:39)
[2017-09-05 01:45] VITALS: BMI 37.3
[2017-09-05 07:23] LABS: BASO % 0.7 % (0-2.0); EOS % 3.6 % (0-4.5); HEMATOCRIT 42.3 % (35.4-49); HEMOGLOBIN 14.2 GM/dL (11.7-16.9); LYMPH % 29.7 % (8-40); MCH 30.5 pg (25.7-33.7); MCHC 33.6 g/dl (32.0-35.9); MEAN CELL VOLUME 90.9 fl (80-96); MONO % 10.9 % (3.8-10.2); NEUT % 55.1 % (42.8-82.8); PLATELET COUNT 179 K/MM3 (134-434); RBC 4.65 M/mm3 (4.00-5.60); RDW 14.3 % (11.9-15.9); WHITE BLOOD COUNT 5.3 K/mm3 (4.0-10.0)
[2017-09-05 07:54] LABS: CHLORIDE 100 mmol/L (98-107); SODIUM 137 mmol/L (136-145)
[2017-09-05 08:17] LABS: ALBUMIN 2.7 g/dl (3.4-5.0); ALK PHOS 84 U/L (45-117); ANION GAP 10 (8-16); BILIRUBIN,TOTAL 0.8 mg/dL (0.2-1.0); BLOOD UREA NITROGEN 3 mg/dL (7-18); CALCIUM 7.7 mg/dL (8.5-10.1); CO2 27 mmol/L (21-32); CREATININE 0.8 mg/dL (0.7-1.3); GLUCOSE,RANDOM 173 mg/dL (74-106); TOT PROT 6.7 g/dl (6.4-8.2)
[2017-09-05 08:19] LABS: POTASSIUM 3.9 mmol/L (3.5-5.1); SGPT/ALT 476 U/L (12-78)
[2017-09-05 08:20] LABS: SGOT/AST 419 U/L (15-37)
[2017-09-05] MEDS: CARVEDILOL 25 MG TABLET (FP) PO SCH ×2 (09:48→21:10)
[2017-09-05] MEDS: NIFEdipine E.R 60 MG TABLET (UD) PO SCH ×2 (09:48→21:10)
[2017-09-05] MEDS: DOCUSATE SODIUM 100 MG CAPSULE (FP) PO SCH (09:48)
[2017-09-05] MEDS: PRENATAL VITAMINS W/ FOLIC ACID TABLET (FP) PO SCH (09:48)
[2017-09-05] MEDS: THIAMINE HCL 100 MG TABLET (FP) PO SCH ×2 (09:50→21:10)
--- NOTE | 2017-09-05 10:24 | PN ---
Progress Note (short form) - Note Progress Note: overnight pt was found to be in Afib with RVR. no medications were given. pt states he has no sensation of palpitations. denies CP, SOB, fever, chills, n/V/C /D Current Medications Generic Name Dose Route Start Last Admin Trade Name Freq PRN Reason Stop Dose Admin Al Hydroxide/Mg Hydroxide 30 ml 09/04/17 13:43 Mylanta Oral Suspension - PO Q6H PRN DYSPEPSIA Carvedilol 25 mg 09/03/17 10:00 09/05/17 09:48 Coreg - PO 25 mg DAILY PEREZ Administration Docusate Sodium 100 mg 09/04/17 13:45 09/05/17 09:48 Colace - PO 100 mg DAILY PEREZ Administration Sodium Chloride 1,000 mls @ 50 mls/hr 09/04/17 13:00 09/04/17 15:16 Normal Saline - IV 09/05/17 12:47 50 mls/hr ASDIR PEREZ Administration Latanoprost 1 drop 09/03/17 22:00 09/04/17 21:39 Xalatan 0.005% Eye Drops - OU 1 drop HS PEREZ Administration Lorazepam 2 mg 09/03/17 04:58 09/03/17 18:08 Ativan - PO 2 mg Q6H PRN Administration ANXIETY Nifedipine 60 mg 09/03/17 10:00 09/05/17 09:48 Procardia Xl - PO 60 mg BID PEREZ Administration Multivit/Folic Acid/Iron 1 tab 09/03/17 10:00 09/05/17 09:48 Vitamins (Sjr) - PO 1 tab DAILY PEREZ Administration Promethazine HCl 12.5 mg 09/03/17 18:31 Phenergan Injection - IVPB Q6H PRN NAUSEA AND/OR VOMITING Senna 1 tab 09/04/17 22:00 09/04/17 21:39 Senna - PO 1 tab HS PEREZ Administration Thiamine HCl 100 mg 09/03/17 10:00 09/05/17 09:50 Vitamin B1 - PO 100 mg BID PEREZ Administration Last Vital Signs Temp Pulse Resp BP Pulse Ox 98 F 112 H 18 136/67 97 09/05/17 10:00 09/05/17 10:00 09/05/17 10:00 09/05/17 10:00 09/05/17 09:00 General NAD CV S1 S2 irregular tachycardic Lungs CTA B/L no wheezing/rales/rhonchi Abdomen soft NT/ND obese no hepatomegaly Extremities no tremor CBCD WBC 5.3 K/mm3 (4.0-10.0) 09/05/17 06:30 RBC 4.65 M/mm3 (4.00-5.60) 09/05/17 06:30 Hgb 14.2 GM/dL (11.7-16.9) 09/05/17 06:30 Hct 42.3 % (35.4-49) 09/05/17 06:30 MCV 90.9 fl (80-96) 09/05/17 06:30 MCHC 33.6 g/dl (32.0-35.9) 09/05/17 06:30 RDW 14.3 % (11.9-15.9) 09/05/17 06:30 Plt Count 179 K/MM3 (134-434) 09/05/17 06:30 MPV 9.0 fl (7.5-11.1) 09/05/17 06:30 CMP Sodium 137 mmol/L (136-145) 09/05/17 06:30 Potassium 3.9 mmol/L (3.5-5.1) D 09/05/17 06:30 Chloride 100 mmol/L (98-107) 09/05/17 06:30 Carbon Dioxide 27 mmol/L (21-32) 09/05/17 06:30 Anion Gap 10 (8-16) 09/05/17 06:30 BUN 3 mg/dL (7-18) L D 09/05/17 06:30 Creatinine 0.8 mg/dL (0.7-1.3) 09/05/17 06:30 Creat Clearance w eGFR > 60 (>60) 09/05/17 06:30 Calcium 7.7 mg/dL (8.5-10.1) L 09/05/17 06:30 Total Bilirubin 0.8 mg/dL (0.2-1.0) D 09/05/17 06:30 AST 419 U/L (15-37) H D 09/05/17 06:30 ALT 476 U/L (12-78) H D 09/05/17 06:30 Alkaline Phosphatase 84 U/L (45-117) 09/05/17 06:30 Total Protein 6.7 g/dl (6.4-8.2) 09/05/17 06:30 Albumin 2.7 g/dl (3.4-5.0) L 09/05/17 06:30 ASSESSMENT AND PLAN: 82yo M with PMH continuous ETOH dependence, HTN and asthma presented to the ER after mechanical fall. In the ER stated to the ER staff about his depression and concern for suicide 1. New onset fib with RVR- asymptomatic. was on coreg at home but only daily dosing. pt is unclear if he was ever told he had afib before. HR ranging from 90 -140. will start lopressor 5mg IVP prn, adjust coreg to 25mg BID. [id number] 2. counseled on risks of afib and stroke and need for anticoagulation. concern as pt has drinking issue and came in with mechanical fall. explained in detail risks of treatment and given option to patient what he would want to do with both and son present. they opted for anticoagulation. verbalized understanding of risks and claimed he plans on not drinking in the future. will start eliquis today. spoke with cardio. will f/u with pt as outpatient and plan for possible cardioversion if afib persists. 1. Mechanical fall- likely due to acute intoxication at the time. will need to r /o syncope. no events on monitor. echo and carotid normal. 2. Tropinemia- flat trend 0.2-0.18-0.2. no cardiac symptoms. no ischemia workup at this time. evaluated by cardio and can f/u as outpatient 3. Transaminitis- concern for ETOH hepatitis. discriminate function score 13.6, will not need steroids at this time. liver u/s showing fatty liver. hepatitis panel pending. slowly trending down. will monitor. 4. Hypomagnesemia- resolved 5. Hypophosphatemia- resolved 6. hypokalemia- resolved 7. Acute ETOH intoxication-CIWA 0. did not require detox during this hospital stay. not interested inpatient rehab. counseld on risks of continued ETOH use and risk of early 8. Major depression- noted in the ER to be tearful on exam and symptoms consistent with depression. no suicidal thoughts or plans. Holden is unavailable at this time. can f/u with as outpatient 9. DVT ppx- hep sq 10. spoke with and son present at bedside, updated on current plan. verbalized understanding and agreement with plan. Visit type - Emergency Visit Emergency Visit: Yes ED Registration Date: 09/03/17 Care time: The patient presented to the Emergency Department on the above date and was hospitalized for further evaluation of their emergent condition. - New Patient This patient is new to me today: No - Critical Care Critical Care patient: No - Discharge Referral Referred to [facility] Med P.C.: No
[2017-09-05] MEDS: APIXABAN 5 MG TABLET PO SCH ×2 (12:27→21:11)
[2017-09-05] MEDS ORDERED: METOPROLOL TARTRATE 5 MG/5 ML VIAL IVPUSH PRN (15:49)
[2017-09-05] MEDS: SENNOSIDES 8.6MG TABLET (FP) PO SCH (21:10)
[2017-09-05] MEDS: LATANOPROST 0.005% OPHTH SOLN 2.5ML BOTTLE OU SCH (21:11)
[2017-09-06 07:12] LABS: HEMATOCRIT 39.7 % (35.4-49); HEMOGLOBIN 13.3 GM/dL (11.7-16.9); MCH 30.4 pg (25.7-33.7); MCHC 33.5 g/dl (32.0-35.9); MEAN CELL VOLUME 90.8 fl (80-96); MEAN PLT VOLUME 8.9 fl (7.5-11.1); PLATELET COUNT 179 K/MM3 (134-434); RBC 4.37 M/mm3 (4.00-5.60); RDW 14.2 % (11.9-15.9); WHITE BLOOD COUNT 7.9 K/mm3 (4.0-10.0)
[2017-09-06 07:46] LABS: CHLORIDE 99 mmol/L (98-107); POTASSIUM 3.3 mmol/L (3.5-5.1); SODIUM 137 mmol/L (136-145)
[2017-09-06 08:04] LABS: ALBUMIN 2.6 g/dl (3.4-5.0); ALK PHOS 74 U/L (45-117); ANION GAP 7 (8-16); BILIRUBIN,TOTAL 0.7 mg/dL (0.2-1.0); BLOOD UREA NITROGEN 7 mg/dL (7-18); CALCIUM 7.8 mg/dL (8.5-10.1); CO2 31 mmol/L (21-32); CREATININE 0.7 mg/dL (0.7-1.3); GLUCOSE,RANDOM 147 mg/dL (74-106); MAGNESIUM 1.8 mg/dL (1.8-2.4); PHOSPHOROUS 2.8 mg/dL (2.5-4.9); SGOT/AST 168 U/L (15-37); SGPT/ALT 312 U/L (12-78); TOT PROT 6.3 g/dl (6.4-8.2)
[2017-09-06] MEDS: CARVEDILOL 25 MG TABLET (FP) PO SCH (09:00)
[2017-09-06] MEDS: APIXABAN 5 MG TABLET PO SCH (09:00)
[2017-09-06] MEDS: DOCUSATE SODIUM 100 MG CAPSULE (FP) PO SCH (09:00)
[2017-09-06] MEDS: PRENATAL VITAMINS W/ FOLIC ACID TABLET (FP) PO SCH (09:00)
[2017-09-06] MEDS: NIFEdipine E.R 60 MG TABLET (UD) PO SCH (09:01)
[2017-09-06] MEDS: THIAMINE HCL 100 MG TABLET (FP) PO SCH (09:01)
[2017-09-06] MEDS ORDERED: dilTIAZem HCL 30 MG TABLET (FP) PO ONE (09:32)
[2017-09-06] MEDS ORDERED: POTASSIUM CHLORIDE ORAL LIQUID 20 MEQ/15 ML PO ONE (09:33)
[2017-09-06 09:46] VITALS: BP 129/82; PULSE 102; TEMP 98.6
--- NOTE | 2017-09-06 12:12 | PN ---
Teaching Attending Note Name of Resident: Bony Finn ATTENDING PHYSICIAN STATEMENT I saw and evaluated the patient. I reviewed the resident's note and discussed the case with the resident. I agree with the resident's findings and plan as documented. SUBJECTIVE:asymtpomatic. denies CP, SOB, fever,chills, palpitations, N/V/C/D OBJECTIVE: Last Vital Signs Temp Pulse Resp BP Pulse Ox 98.6 F 102 H 20 129/82 98 09/06/17 09:00 09/06/17 09:00 09/06/17 09:00 09/06/17 09:00 09/06/17 09:00 General NAD CV S1 S2 irregular ASSESSMENT AND PLAN: 82yo M with PMH continuous ETOH dependence, HTN and asthma presented to the ER after mechanical fall. In the ER stated to the ER staff about his depression and concern for suicide 1. New onset fib with RVR- asymptomatic. HR slightly above goal. will cont coreg 25mg BID and start cardizem 120 LA for tomorrow as pt already received nifedipine here today. spoke with cardio and pt can d/c on this medication and follow up wtih them in 2 days for dose adjustments as needed. cont eliquis for [id number] 2. stressed importance of not drinking while on medication 1. Mechanical fall- likely due to acute intoxication at the time. no recurrent episodes. echo and carotid normal. 2. Tropinemia- flat trend 0.2-0.18-0.2. no cardiac symptoms. no ischemia workup at this time. evaluated by cardio and can f/u as outpatient 3. Transaminitis- concern for ETOH hepatitis. discriminate function score 13.6, will not need steroids at this time. liver u/s showing fatty liver. hepatitis panel pending. slowly trending down. should have repeated in 1 week. 4. Hypomagnesemia- resolved 5. Hypophosphatemia- resolved 6. hypokalemia- resolved 7. Acute ETOH intoxication-CIWA 0. did not require detox during this hospital stay. not interested inpatient rehab. counseled on risks of continued ETOH use and risk of early 8. Major depression- noted in the ER to be tearful on exam and symptoms consistent with depression. no suicidal thoughts or plans. Pyangela is unavailable at this time. can f/u with as outpatient 9. DVT ppx- hep sq 10. spoke with and son present at bedside, updated on current plan. verbalized understanding and agreement with plan. d/c home
--- NOTE | 2017-09-06 12:26 | PN ---
Progress Note, Physician Chief Complaint: asked to re-eval due to af rvr tele af rv 110 History of Present Illness: 82 year old male with a pmhx of htn, asthma, glaucoma, pvd, and chronic etoh us who presents after fall. Was drinking in bed when got up to use the bathroom and on his way back he fell. No syncope, chest pain, sob, or palpitations. [place] weak. Called his family who helped him up. Currently with no complaints. echo 07/04/17 nlef min mr/tr developed atrial fibrillation without symptoms, started on Eliquis, coreg increased but still mild increase in HR. No symptoms. - Current Medication List Current Medications: Active Medications Al Hydroxide/Mg Hydroxide (Mylanta Oral Suspension -) 30 ml PO Q6H PRN PRN Reason: DYSPEPSIA Apixaban (Eliquis -) 5 mg PO BID [facility] Last Admin: 09/06/17 09:00 Dose: 5 mg Carvedilol (Coreg -) 25 mg PO BID [facility] Last Admin: 09/06/17 09:00 Dose: 25 mg Docusate Sodium (Colace -) 100 mg PO DAILY [facility] Last Admin: 09/06/17 09:00 Dose: 100 mg Latanoprost (Xalatan 0.005% Eye Drops -) 1 drop OU HS [facility] Last Admin: 09/05/17 21:11 Dose: 1 drop Metoprolol Tartrate (Lopressor Injection -) 5 mg IVPUSH Q4H PRN PRN Reason: HYPERTENSION Multivit/Folic Acid/Iron ( Vitamins (Sjr) -) 1 tab PO DAILY [facility] Last Admin: 09/06/17 09:00 Dose: 1 tab Promethazine HCl (Phenergan Injection -) 12.5 mg IVPB Q6H PRN PRN Reason: NAUSEA AND/OR VOMITING Senna (Senna -) 1 tab PO HS [facility] Last Admin: 09/05/17 21:10 Dose: 1 tab Thiamine HCl (Vitamin B1 -) 100 mg PO BID [facility] Last Admin: 09/06/17 09:01 Dose: 100 mg - Objective Vital Signs: Vital Signs Temperature 98.6 F 09/06/17 09:00 Pulse Rate 102 H 09/06/17 09:00 Respiratory Rate 20 09/06/17 09:00 Blood Pressure 129/82 09/06/17 09:00 O2 Sat by Pulse Oximetry (%) 98 09/06/17 09:00 Constitutional: Yes: No Distress, Calm Eyes: Yes: Conjunctiva Clear, EOM Intact HENT: Yes: Normocephalic Neck: Yes: Trachea Midline Cardiovascular: Yes: Tachycardia, Pulse Irregular Respiratory: Yes: CTA Bilaterally Gastrointestinal: Yes: Normal Bowel Sounds Genitourinary: Yes: WNL Extremities: Yes: WNL Edema: No Peripheral Pulses WNL: Yes Labs: CBC, BMP 09/06/17 06:30 09/06/17 06:30 INR, PTT INR 1.39 (0.82-1.09) H 09/02/17 19:50 Problem List - Problems (1) Atrial fibrillation Assessment/Plan: no need to perform inpatient ischemia workup. echo is unremarkable. Continue eliquis for stroke prevention. Patient and family understand the risks. Add low dose diltiazem cd 120 mg daily. follow up with Dr Kane Roberto as outpatient in the office Thursday09/08/17. Family to call for appt. Code(s): I48.91 - UNSPECIFIED ATRIAL FIBRILLATION Qualifiers: Atrial fibrillation type: persistent Qualified Code(s): I48.1 - Persistent atrial fibrillation
--- NOTE | 2017-09-06 15:22 | DS ---
Physical Exam: SUBJECTIVE: Patient seen and examined sitting comfortably in chair not in distress. feels good OBJECTIVE: Vital Signs Period Temp Pulse Resp BP Sys/Romero Pulse Ox Last 24 Hr 98.2 F-99.4 F 80-113 18-20 108-141/52-97 97-98 PHYSICAL EXAM GENERAL: The patient is awake, alert, and fully oriented, in no acute distress. HEAD: Normal with no signs of trauma. ENT: Ears normal, nares patent, oropharynx clear without exudates, moist mucous membranes. NECK: Trachea midline, full range of motion, supple. LUNGS: Breath sounds equal, clear to auscultation bilaterally, no wheezes, no crackles, no accessory muscle use. HEART: irregular, s1s2 normal ABDOMEN: Soft, nontender, nondistended, normoactive bowel sounds, no guarding, no rebound, EXTREMITIES: warm, well-perfused, no edema. PSYCH: Normal mood, normal affect. SKIN: Warm, dry, LABS Laboratory Results - last 24 hr 09/05/17 09/06/17 09/06/17 22:13 05:58 06:30 WBC 7.9 D RBC 4.37 Hgb 13.3 Hct 39.7 MCV 90.8 MCH 30.4 MCHC 33.5 RDW 14.2 Plt Count 179 MPV 8.9 Sodium Potassium Chloride Carbon Dioxide Anion Gap BUN Creatinine Creat Clearance w eGFR POC Glucometer 147 165 Random Glucose Hemoglobin A1c % Calcium Phosphorus Magnesium Total Bilirubin AST ALT Alkaline Phosphatase Total Protein Albumin 09/06/17 09/06/17 06:30 06:30 WBC RBC Hgb Hct MCV MCH MCHC RDW Plt Count MPV Sodium 137 Potassium 3.3 L Chloride 99 Carbon Dioxide 31 Anion Gap 7 L BUN 7 D Creatinine 0.7 Creat Clearance w eGFR > 60 POC Glucometer Random Glucose 147 H Hemoglobin A1c % 6.7 H Calcium 7.8 L Phosphorus 2.8 D Magnesium 1.8 Total Bilirubin 0.7 AST 168 H D ALT 312 H D Alkaline Phosphatase 74 Total Protein 6.3 L Albumin 2.6 L Laboratory Tests 09/02/17 09/03/17 09/04/17 22:00 09:05 06:03 AST 843 H ALT 661 H Alcohol, Quantitative 197.80 H* Hepatitis A IgM Ab Negative Hep Bs Antigen Negative Hep B Core IgM Ab Negative Hepatitis C Antibody 0.2 09/05/17 09/06/17 06:30 06:30 AST 419 H D 168 H D ALT 476 H D 312 H D Alcohol, Quantitative Hepatitis A IgM Ab Hep Bs Antigen Hep B Core IgM Ab Hepatitis C Antibody CT head :Clinical information: status post unwitnessed fall No CT evidence of intracranial injury or calvarial fracture. There is no extra-axial fluid collection. No discrete infarct is identified within the limitations of CT. There is no gross mass lesion. Involutional changes are noted with mild ventricular dilatation. At least moderate atherosclerotic calcifications are seen along the cavernous carotid arteries. Impression: No CT evidence of acute intracranial pathology. ECHO :LV function normal, RV function normal, mild TR and MR, trace AR Carotid doppler : no evidence of significant stenosis. HOSPITAL COURSE: 82 yr old man with HTN, Asthma, b/l glaucoma, PVD, chronic ETOH use, bibems s/p fall this evening. He has been drinking "kisha wine" every night to help him sleep. This evening he was continuously sipping kisha beer in bed when he got up to use the bathroom, on his way back to the bed he fell. He called out to his grandson and who helped him up.denies chest pain , dizziness, palpitations, LOC, head trauma, vomiting, nausea, lightheadedness. says he drinks because he is worried about his family. his step-daughter was recently diagnosed with breast cancer and his sister(hxof DM and HTN) has a stroke and recently. endorses "other family stressors" that keep him up at night, requiring him to use alcohol to sleep and "ease his troubles. Patient likely have a fall rom acute intoxiation from alcohol for which he was treated with banana bag, thiamin and multivitamin. Syncopal workup was also done and report for CT head, echo and carotid Doppler mentioned above. Patient was found to have new afib for which cardiology Dr Brandon was consulted and was started on elequis, coreg and cardiazem. Patient was also found to have transamenitis which is likely from alochol use. ast/ alt decreased with conservative management, usg shows fatty liver, hepatic panel was done report mentioned above. Now patient is stable HR is under control, accepting orally, lft improved. Patient is discharged in stable condition. Date of Admission:09/03/17 Date of Discharge: 09/06/17 Minutes to complete discharge: 45 Discharge Summary Reason For Visit: SYNCOPE COLLAPSE ETOH DEPENDENCE Condition: Improved - Instructions Diet, Activity, Other Instructions: Do not drink alcohol. You stated your not interested in inpatient rehab at this time. Please seek out AA (Alcoholics Anonymous) meetings to get help and support to help you during this time. Follow up with your primary care doctor in one week and repeat your liver function test. Follow up with Dr Maldonado for management of your depression. Follow up with cardioloist Dr roberto for further management of atrial fibrillation. PLease see him Neda, You may need to adjust your medication to help control your heart rate. We had increased your coreg form 25mg daily to 25 mg twice daily. We had started you on cardiazem 120 mg daily. We had started you eliquis 5mg twice daily. Its a blood thinner. It has been started because you have atrial fibrillation. Take fall risk precautions. You have higher chances of bleeding if you fall because you are on blood thinner/ anti coagulant. eat health and try to lose weight. Visiting nurse and physical therapy has been arranged for you by director of casework department/ social insurance specialist. Walker has been ordered for you by director of casework department/ social insurance specialist which will be delivered to your home. Take over the counter multivitamin tablet every day. If develop nausea, vomiting, chest pain, palpitations, shortness of breath call doctor or go to hospital. Referrals: Malvin Maldonado MD [Staff Physician] - Aric Roberto MD [Staff Physician] - Disposition: VNS/HOME HEALTH CARE - Home Medications Comprehensive Discharge Medication List: Ambulatory Orders Bimatoprost [Lumigan] 1 drop OU HS 04/14/16 Levalbuterol Tartrate [Xopenex Hfa] 15 gm IH DAILY 09/02/17 Apixaban [Eliquis -] 5 mg PO BID #60 tablet 09/06/17 Carvedilol [Coreg -] 25 mg PO BID #60 tablet 09/06/17 Diltiazem Cd [Cardizem Cd -] 120 mg PO DAILY #30 cap.cd.24h 09/06/17 Docusate Sodium [Colace -] 100 mg PO DAILY PRN #30 capsule 09/06/17 This patient is new to me today: No Emergency Visit: Yes ED Registration Date: 05/31/18 Care time: The patient presented to the Emergency Department on the above date and was hospitalized for further evaluation of their emergent condition. Critical Care patient: No - Discharge Referral Referred to [facility] No
--- NOTE | 2017-09-06 22:15 | EKG ---
Test Reason : Blood Pressure : / mmHG Vent. Rate : 110 BPM Atrial Rate : 122 BPM P-R Int : 000 ms QRS Dur : 084 ms QT Int : 352 ms P-R-T Axes : 000 -12 071 degrees QTc Int : 476 ms SINUS RHYTHM WITH FREQUENT APCS SEPTAL INFARCT (CITED ON OR BEFORE 14-APR-2016) ABNORMAL ECG Confirmed by JERAMIE LAMA MD ([id number]) on 09/06/2017 10:15:09 PM Referred By: Alondra MOELLER Confirmed By:JERAMIE LAMA MD
== END 2017-09-06 13:25 | disposition home health service (06) | DRG 897 ==
LOC: JER 18:59 → JERBED 09-03 02:14 → UNDOADMOB 09-03 02:35 → JERBED 09-03 02:35 → OBSVTOIN 09-03 13:35 → J4W 09-03 14:20
PROVIDERS: ADMIT Internal Medicine; ATTEND Internal Medicine
PROC: HZ2ZZZZ Detoxification Services for Substance Abuse Treatment (ICD-10-PCS; principal; 2017-09-03)
DX: F10.239 Alcohol dependence with withdrawal, unspecified (principal); I48.1 Persistent atrial fibrillation; R55 Syncope and collapse; I10 Essential (primary) hypertension; R74.0 Nonspecific elevation of levels of transaminase and lactic acid dehydrogenase [LDH]; E83.42 Hypomagnesemia; E83.39 Other disorders of phosphorus metabolism; E87.6 Hypokalemia; F32.9 Major depressive disorder, single episode, unspecified; J45.909 Unspecified asthma, uncomplicated; E83.51 Hypocalcemia; K76.0 Fatty (change of) liver, not elsewhere classified
CPT/HCPCS: 36415; 70450-TC; 71045-TC-FY; 72125-TC; 72170-TC-FY; 76705-TC; 80053; 80061; 80074; 80307; 81003; 82550; 82553; 82962; 83036; 83721; 83735; 84100; 84478; 84484; 85025; 85027; 85610; 93005; 93010; 93306-TC; 93880-TC; 97116-GP; 97161-GP; 99285-25; G0378; J7030

== ENCOUNTER 2018-10-02 08:54 | Inpatient (IN) | payer OTHER ==
[2018-10-02] MEDS ORDERED: SODIUM CHLORIDE 0.9% 500 ML INFUS.BAG IV ONE (09:42)
[2018-10-02] MEDS ORDERED: ACETAMINOPHEN 325 MG TABLET (FP) PO ONE (09:43)
[2018-10-02] MEDS ORDERED: LACTATED RINGERS SOLUTION 1000 ML INFUS.BAG IV ONE (10:13)
[2018-10-02] MEDS ORDERED: ACETAMINOPHEN 325 MG TABLET (FP) ONE (10:29)
[2018-10-02 10:40] LABS: BASO % 1.6 % (0-2.0); EOS % 3.2 % (0-4.5); HEMATOCRIT 39.5 % (35.4-49); HEMOGLOBIN 13.2 GM/dL (11.7-16.9); LYMPH % 38.5 % (8-40); MCH 31.1 pg (25.7-33.7); MCHC 33.4 g/dl (32.0-35.9); MEAN CELL VOLUME 93.3 fl (80-96); MEAN PLT VOLUME 8.1 fl (7.5-11.1); MONO % 7.4 % (3.8-10.2); NEUT % 49.3 % (42.8-82.8); RBC 4.23 M/mm3 (4.00-5.60); RDW 15.6 % (11.9-15.9); WHITE BLOOD COUNT 4.1 K/mm3 (4.0-10.0)
[2018-10-02 10:51] LABS: URINE APPEARANCE CLEAR; URINE BILIRUBIN NEGATIVE (NEGATIVE); URINE COLOR YELLOW; URINE GLUCOSE (UA) NEGATIVE (NEGATIVE); URINE KETONE NEGATIVE (NEGATIVE); URINE LEUK ESTERASE NEGATIVE (NEGATIVE); URINE NITRITE NEGATIVE (NEGATIVE); URINE PROTEIN NEGATIVE (NEGATIVE); URINE UROBILINOGEN 0.2 mg/dL (0.2-1.0)
--- NOTE | 2018-10-02 10:52 | PDOC ---
Attending Attestation - Resident Resident Name: Andrew Amosan - ED Attending Attestation I have performed the following: I have examined & evaluated the patient, The case was reviewed & discussed with the resident, I agree w/resident's findings & plan - HPI HPI: 10/02/18 10:48 83 yr old man with HTN, Asthma, b/l glaucoma, PVD, chronic ETOH use, bibems for weakness/dehydration. He admits to 2 days of chest pain, headache, body aches Last drink of beer this morning Decreased PO intake and appetite. he drinks beer daily. has h/o rehab, last in record from [facility] for detox. recently admitted to [facility] 3 weeks ago for dehydration. no recent falls/trauma 10/02/18 11:15 - Physicial Exam PE: 10/02/18 10:49 Agree with the resident's HPI and PE as documented in the electronic medical record. NAD, slurring speech, intoxicated, EOMI, PERRL, ciliary injection, dry mucus membranes, nl conjunctiva, anicteric; neck supple. lungs clear, RRR, abdomen soft protuberant, mild RUQ tenderness, no rebound or guarding, no gauthier's sign. Back nontender. [place] x4, no focal neuro deficits. No peripheral edema. normal color for ethnicity, WWP. bilateral lower extremity varicosities, nontender, superficial skin hypopigmented regions. 10/02/18 11:15 - Medical Decision Making 10/02/18 10:50 See HPI for details. Prior notes reviewed, including admissions, discharges and consultations. Vital signs reviewed, wnl. DDX alcohol intox, withdrawal, dehydration, ACS, arrhythmia, anemia, myalgias laboratory results and imaging reviewed, basic labs and lytes wnl, coag normal. LFTs normal compared to prior transaminitis fro etoh. UA_negative. alcohol intox. CXR_no acute pathology, enlarged heart. Cardiac panel_positive trop 0.11, tele monitor and serial EKG/trop EKG normal sinus rhythm at 80 bpm, TX prolongation 1st degree AV block, no QTC interval abnormalities, narrow QRS, ST and T wave segments and morphology normal. Nonspecific T wave abnormalities - limited by artifact, similar to prior , occasional PACs bedside pocus renal neg for hydro, biliary neg for stones/cholecystitis, no ascites. IVC flat, c/w hypovolemic state, give fluids. ED course -interventions: IVF hydration, reassess ASA for chest pain/NSTEMI +trop (prior all elevated as well, but in setting of cp, needs serials to [facility]) - prior stress test from 2018 also with inferolateral/apical infarct, irreversible ischemia, EF 47%. no vasodilatory induced ischemia. - librium given, no e/o withdrawal currently, to hold over ETOH w/d Admit for chest pain/weakness, +trop/NSTEMI and alcohol intox. Discussed results and management plan with pt and family member at bedside, agree with impression, treatment indications, recommendations and plan. s/o to Dr _ regarding admission 10/02/18 11:22 10/02/18 12:36 Heart Score/ECG Review #1 ECG reviewed & interpreted by me at: 10:05 General ECG Interpretation: Sinus Rhythm, Normal Rate, Normal Intervals Compared to previous ECG there are: No significant change 10/02/18 10:51 EKG normal sinus rhythm at 80 bpm, TX prolongation 1st degree AV block, no QTC interval abnormalities, narrow QRS, ST and T wave segments and morphology normal. Nonspecific T wave abnormalities - limited by artifact, similar to prior , occasional PACs 10/02/18 10:53 Procedures - Bedside Ultrasound Bedside Ultrasound: Gallbladder Remarks: 10/02/18 11:19 POCUS renal exam performed, indication includes abdominal/flank pain. views obtained: bilateral kidneys in short and long axis, bladder. findings: no evidence of hydronephrosis. Impression: no acute findings. POCUS biliary exam: Indication: abdominal pain Views: gallbladder long and s hort axis, CBD Findings: no stones or GB wall thickening or pericholecystic fluid, normal CBD < 3mm for age. Neg sono murphys. no ascites. Impression: no acute findings. No cholelithiasis or cholecystitis.
[2018-10-02 11:05] LABS: BILIRUBIN,TOTAL 0.8 mg/dL (0.2-1); BLOOD UREA NITROGEN 12.4 mg/dL (7-18); CALCIUM 8.2 mg/dL (8.5-10.1); CREATININE 0.8 mg/dL (0.55-1.3); POTASSIUM 4.3 mmol/L (3.5-5.1); TOT PROT 7.4 g/dl (6.4-8.2)
[2018-10-02] MEDS ORDERED: chlordiazePOXIDE HCL 25 MG CAPSULE PO ONE (11:14)
[2018-10-02 11:18] LABS: INR 1.3 (0.83-1.09); PROTHROMBIN TIME (PATIENT) 15.4 SEC (9.7-13.0)
[2018-10-02 11:25] LABS: PLATELET COUNT 308 K/MM3 (134-434)
[2018-10-02] MEDS ORDERED: chlordiazePOXIDE HCL 25 MG CAPSULE ONE (11:28)
--- NOTE | 2018-10-02 12:04 | PDOC ---
History of Present Illness - History of Present Illness Initial Comments: The pt is a 83M w/ a history of HTN, borderline DM, and EtOH abuse who presents for evaluation of several days of body aches, 2 days of intermittent, non- exertional, non-radiating chest pain. He also reports intermittent, global, gradual onset headaches. He reports daily EtOH use with his last drink being this morning ('couple of beers'). He also endorses RUQ abdominal pain (chronic) and decreased PO intake (reportedly 2/2 anxiety over his family and debt). He denies fevers chills, trouble breathing, N/V/C/D, dysuria, hematuria, or blood in his stool. Denies recent falls or trauma 10/02/18 12:03 <Nitin Amos - Last Filed: 10/02/18 14:28> <Charisse Okeefe - Last Filed: 10/03/18 11:42> - General Chief Complaint: Alcohol intoxication Stated Complaint: INTOX Time Seen by Provider: 10/02/18 09:24 Past History - Past Medical History Anemia: No Asthma: Yes (ON ALBUTEROL INHALER) Cancer: No Cardiac Disorders: No CVA: No COPD: No CHF: No Dementia: No Diabetes: Yes GI Disorders: No Disorders: No HTN: Yes Hypercholesterolemia: No Kidney Stones: No Liver Disease: No Seizures: No Thyroid Disease: No - Surgical History Orthopedic Surgery: Yes (RIGHT KNEE REPLACEMENT IN 2005) - Reproductive History Testicular Surgery: No - Suicide/Smoking/Psychosocial Hx Smoking History: Never smoked Have you smoked in the past 12 months: No If you are a former smoker, when did you quit?: 1973 Hx Alcohol Use: Yes (daily) Drug/Substance Use Hx: No Substance Use Type: Alcohol Hx Substance Use Treatment: No <Nitin Amos - Last Filed: 10/02/18 14:28> <Charisse Okeefe - Last Filed: 10/03/18 11:42> - Past Medical History Allergies/Adverse Reactions: Allergies Allergy/AdvReac Type Severity Reaction Status Date / Time No Known Allergies Allergy Verified 10/02/18 09:00 Home Medications: Ambulatory Orders Bimatoprost [Lumigan] 1 drop OU HS 04/14/16 Levalbuterol Tartrate [Xopenex Hfa] 15 gm IH DAILY 09/02/17 Carvedilol [Coreg -] 25 mg PO BID #60 tablet 09/06/17 Docusate Sodium [Colace -] 100 mg PO DAILY PRN #30 capsule 09/06/17 Nifedipine [Nifedipine ER] 60 mg PO DAILY 10/02/18 Review of Systems - Review of Systems Able to Perform ROS?: Yes Comments:: GENERAL/CONSTITUTIONAL: No fever or chills HEAD, EYES, EARS, NOSE AND THROAT: No change in vision. No ear pain or discharge. No sore throat CARDIOVASCULAR: No shortness of breath RESPIRATORY: Denies cough, hemoptysis GASTROINTESTINAL: No nausea, vomiting, diarrhea or constipation GENITOURINARY: No dysuria, frequency, or change in urination MUSCULOSKELETAL: No joint or muscle swelling or pain SKIN: No rash NEUROLOGIC: No headache, vertigo, loss of consciousness, or change in strength/ sensation ENDOCRINE: No increased thirst. No abnormal weight change HEMATOLOGIC/LYMPHATIC: No anemia, easy bleeding, or history of blood clots ALLERGIC/IMMUNOLOGIC: No hives or skin allergy 10/02/18 12:23 Is the patient limited Danish proficient: No <Nitin Amos - Last Filed: 10/02/18 14:28> *Physical Exam - Vital Signs Last Vital Signs Temp Pulse Resp BP Pulse Ox 98 F 71 18 120/66 98 10/02/18 08:57 10/02/18 08:57 10/02/18 08:57 10/02/18 08:57 10/02/18 08:57 - Physical Exam Comments: GENERAL: Awake, alert, and oriented to person/place/time, in no acute distress HEAD: No signs of trauma, normocephalic, atraumatic EYES: PERRLA, EOMI, sclera anicteric, conjunctiva clear ENT: Hearing grossly normal, nares patent, oropharynx clear without exudates. Moist mucosa LUNGS: No distress, speaks in full sentences, clear to auscultation bilaterally HEART: Regular rate and rhythm, normal S1 and S2, no murmurs appreciated, peripheral pulses normal and equal bilaterally ABDOMEN: Soft, protuberant, RUQ abdominal pain w/o guarding or rebound, normoactive bowel sounds EXTREMITIES: Normal inspection, Normal range of motion, no edema. No clubbing or cyanosis NEUROLOGICAL: Cranial nerves II through XII grossly intact. Normal speech, no focal sensorimotor deficits SKIN: Warm, Dry 10/02/18 12:25 <DandreNitin - Last Filed: 10/02/18 14:28> - Vital Signs Last Vital Signs Temp Pulse Resp BP Pulse Ox 97.9 F 96 H 20 140/73 97 10/03/18 06:00 10/03/18 06:00 10/03/18 06:00 10/03/18 06:00 10/02/18 21:00 <SaryCharisse Nick - Last Filed: 10/03/18 11:42> ED Treatment Course - LABORATORY CBC & Chemistry Diagram: 10/02/18 10:25 10/02/18 10:25 - ADDITIONAL ORDERS Additional order review: Laboratory Results 10/02/18 10/02/18 10/02/18 10:36 10:26 10:25 PT with INR 15.40 H INR 1.30 H Sodium Potassium Chloride Carbon Dioxide Anion Gap BUN Creatinine Est GFR (CKD-EPI)AfAm Est GFR (CKD-EPI)NonAf Random Glucose Calcium Total Bilirubin AST ALT Alkaline Phosphatase Creatine Kinase Creatine Kinase Index CK-MB (CK-2) Troponin I Total Protein Albumin Urine Color Yellow Urine Appearance Clear Urine pH 6.0 Ur Specific [place] 1.010 Urine Protein Negative Urine Glucose (UA) Negative Urine Ketones Negative Urine Blood Negative Urine Nitrite Negative Urine Bilirubin Negative Urine Urobilinogen 0.2 Ur Leukocyte Esterase Negative Alcohol, Quantitative 190.5 H 10/02/18 10:25 PT with INR INR Sodium 136 Potassium 4.3 Chloride 102 Carbon Dioxide 26 Anion Gap 8 BUN 12.4 Creatinine 0.8 Est GFR (CKD-EPI)AfAm 96.42 Est GFR (CKD-EPI)NonAf 83.19 Random Glucose 159 H Calcium 8.2 L Total Bilirubin 0.8 AST 47 H ALT 40 Alkaline Phosphatase 92 Creatine Kinase 229 Creatine Kinase Index 1.4 CK-MB (CK-2) 3.4 Troponin I 0.11 H Total Protein 7.4 Albumin 3.0 L Urine Color Urine Appearance Urine pH Ur Specific [place] Urine Protein Urine Glucose (UA) Urine Ketones Urine Blood Urine Nitrite Urine Bilirubin Urine Urobilinogen Ur Leukocyte Esterase Alcohol, Quantitative 10/02/18 10:25 RBC 4.23 MCV 93.3 MCHC 33.4 RDW 15.6 MPV 8.1 Neutrophils % 49.3 Lymphocytes % 38.5 D Monocytes % 7.4 Eosinophils % 3.2 Basophils % 1.6 - Medications Given in the ED: ED Medications Discontinued Medications Generic Name Dose Route Start Last Admin Trade Name Freddie PRN Reason Stop Dose Admin Acetaminophen 975 mg 10/02/18 09:43 10/02/18 10:28 Tylenol - PO 10/02/18 09:44 975 mg ONCE ONE Administration Chlordiazepoxide HCl 50 mg 10/02/18 11:14 10/02/18 11:41 Librium - PO 10/02/18 11:15 50 mg ONCE ONE Administration Lactated Ringer's 1,000 ml 10/02/18 10:13 10/02/18 10:28 Lactated Ringers Solution IV 10/02/18 10:14 1,000 ml ONCE ONE Administration Sodium Chloride 1,000 ml 10/02/18 09:42 10/02/18 10:28 Normal Saline - IV 10/02/18 09:43 1,000 ml ONCE ONE Administration <Nitin Amos - Last Filed: 10/02/18 14:28> - LABORATORY CBC & Chemistry Diagram: 10/03/18 06:32 10/03/18 06:32 - ADDITIONAL ORDERS Additional order review: 10/02/18 10:25 RBC 4.23 MCV 93.3 MCHC 33.4 RDW 15.6 MPV 8.1 Neutrophils % 49.3 Lymphocytes % 38.5 D Monocytes % 7.4 Eosinophils % 3.2 Basophils % 1.6 - RADIOLOGY Radiology Studies Ordered: Category Date Time Status CHEST X-RAY PORTABLE* [RAD] Stat Radiology 10/02/18 09:42 Completed - Medications Given in the ED: ED Medications Discontinued Medications Generic Name Dose Route Start Last Admin Trade Name Freddie PRN Reason Stop Dose Admin Acetaminophen 975 mg 10/02/18 09:43 10/02/18 10:28 Tylenol - PO 10/02/18 09:44 975 mg ONCE ONE Administration Aspirin 324 mg 10/02/18 12:29 10/02/18 12:44 Asa - PO 10/02/18 12:30 324 mg ONCE ONE Administration Chlordiazepoxide HCl 50 mg 10/02/18 11:14 10/02/18 11:41 Librium - PO 10/02/18 11:15 50 mg ONCE ONE Administration Chlordiazepoxide HCl 50 mg 10/02/18 17:00 10/03/18 11:18 Librium - PO 10/03/18 11:01 50 mg [id number] PEREZ Administration Lactated Ringer's 1,000 ml 10/02/18 10:13 10/02/18 10:28 Lactated Ringers Solution IV 10/02/18 10:14 1,000 ml ONCE ONE Administration Sodium Chloride 1,000 ml 10/02/18 09:42 10/02/18 10:28 Normal Saline - IV 10/02/18 09:43 1,000 ml ONCE ONE Administration <Charisse Okeefe - Last Filed: 10/03/18 11:42> Medical Decision Making - Medical Decision Making The pt is a 83M w/ a history of HTN, borderline DM, EtOH abuse presents for evaluation of 2 days of chest pain, several days of body aches, and EtOH abuse ED Course Labs sent ECG CXR EtOH positive Trop 0.11 with persistent tello ASA given No leukocytosis No anemia Lytes wnl No QUE AST mildly elevated, w/o Tbili elevation POCUS w/ normal gallbladder, b/l renal findings, no intra-abdominal free fluid observed Plan for tele obs 10/02/18 12:03 <Nitin Amos - Last Filed: 10/02/18 14:28> *DC/Admit/Observation/Transfer <Nitin Amos - Last Filed: 10/02/18 14:28> - Discharge Dispostion Decision to Admit order: Yes <Charisse Okeefe - Last Filed: 10/03/18 11:42> Diagnosis at time of Disposition: ACS (acute coronary syndrome), ETOH abuse, Hypertension - Discharge Dispostion Condition at time of disposition: Fair
[2018-10-02] MEDS ORDERED: ASPIRIN 81 MG CHEWABLE TABLETS PO ONE (12:29)
[2018-10-02] MEDS ORDERED: ASPIRIN 81 MG CHEWABLE TABLETS ONE (12:31)
--- NOTE | 2018-10-02 13:16 | HP ---
CHIEF COMPLAINT: Chest Pain PCP: Dr. Patel HISTORY OF PRESENT ILLNESS: Pt is a 83 y/o M with a significant pmh of HTN, borderline DM, COPD (Not on home O2), Asthma, and alcohol abuse who presented to [facility] due to chest pain and headache. Pt endorses that his chest pain commenced yesterday evening before dinner. Pt states he usually sits on the couch and " has a beer before dinner." As he was on the couch, pt began to experience a dull, constant pain in the center of his chest; pain at that time was rated an 8/10 in severity and did not radiate to anywhere else in his body. Pt states he has never experienced this type of pain before. Pt states pain went away by itself and did not use any medications to relinquish his symptoms. Endorses palpitations. Also endorses SOB but attributes this to his underlying COPD. Denies LOC, blurry vision, nausea or vomiting. PMH- HTN, borderline DM, COPD, Asthma, Alcohol abuse Social- Denies Smoking, Drinks 4 Heineken per day. Denies illicit drug use SurgHx- R knee replacement. LLE Varicose Vein removal. FH- Father NC. Mother HTN ER course was notable for: (1) Troponin 0.11 (2) (3) Allergies No Known Allergies Allergy (Verified 10/02/18 09:00) HOME MEDICATIONS: Home Medications Medication Instructions Recorded Bimatoprost [Lumigan] 1 drop OU HS 04/14/16 Levalbuterol Tartrate [Xopenex Hfa] 15 gm IH DAILY 09/02/17 Carvedilol [Coreg -] 25 mg PO BID #60 tablet 09/06/17 Docusate Sodium [Colace -] 100 mg PO DAILY PRN #30 capsule 09/06/17 REVIEW OF SYSTEMS CONSTITUTIONAL: Absent: fever, chills, diaphoresis, generalized weakness, malaise, loss of appetite, weight change HEENT: Absent: rhinorrhea, nasal congestion, throat pain, throat swelling, difficulty swallowing, mouth swelling, ear pain, eye pain, visual changes CARDIOVASCULAR: PRESENT: chest pain, palpitations, irregular heart rate RESPIRATORY: Absent: cough, shortness of breath, dyspnea with exertion, orthopnea, wheezing, stridor, hemoptysis GASTROINTESTINAL: Absent: abdominal pain, abdominal distension, nausea, vomiting, diarrhea, constipation, melena, hematochezia GENITOURINARY: Absent: dysuria, frequency, urgency, hesitancy, hematuria, flank pain, genital pain MUSCULOSKELETAL: Absent: myalgia, arthralgia, joint swelling, back pain, neck pain SKIN: Absent: rash, itching, pallor HEMATOLOGIC/IMMUNOLOGIC: Absent: easy bleeding, easy bruising, lymphadenopathy, frequent infections ENDOCRINE: Absent: unexplained weight gain, unexplained weight loss, heat intolerance, cold intolerance NEUROLOGIC: Absent: headache, focal weakness or paresthesias, dizziness, unsteady gait, seizure, mental status changes, bladder or bowel incontinence PSYCHIATRIC: Absent: anxiety, depression, suicidal or homicidal ideation, hallucinations. PHYSICAL EXAMINATION Vital Signs - 24 hr 10/02/18 10/02/18 08:57 12:24 Temperature 98 F Pulse Rate 71 Respiratory 18 Rate Blood Pressure 120/66 O2 Sat by Pulse 98 97 Oximetry (%) GENERAL:NAD HEAD: Normal with no signs of trauma. EYES: EOMI Sclera Clear . EARS, NOSE, THROAT:MMM LUNGS: CTAB HEART: Irregular, S1S2 ABDOMEN: NDNT LOWER EXTREMITIES: Discoloration left lower extremity godwin. Healing wound right lower godwin laterally. No ulcers/cracks in feet b/l. Warm to touch b/l. NEUROLOGICAL: Cranial nerves II-XII intact. Normal speech. PSYCHIATRIC: Cooperative. Good eye contact. Appropriate mood and affect. SKIN: No rashes or lesions appreciated Laboratory Results - last 24 hr 10/02/18 10/02/18 10/02/18 10:25 10:25 10:25 WBC 4.1 RBC 4.23 Hgb 13.2 Hct 39.5 MCV 93.3 MCH 31.1 MCHC 33.4 RDW 15.6 Plt Count 308 D MPV 8.1 Absolute Neuts (auto) 2.0 Neutrophils % 49.3 Lymphocytes % 38.5 D Monocytes % 7.4 Eosinophils % 3.2 Basophils % 1.6 Nucleated RBC % 0 PT with INR INR Sodium 136 Potassium 4.3 Chloride 102 Carbon Dioxide 26 Anion Gap 8 BUN 12.4 Creatinine 0.8 Est GFR (CKD-EPI)AfAm 96.42 Est GFR (CKD-EPI)NonAf 83.19 Random Glucose 159 H Calcium 8.2 L Total Bilirubin 0.8 AST 47 H ALT 40 Alkaline Phosphatase 92 Creatine Kinase 229 Creatine Kinase Index 1.4 CK-MB (CK-2) 3.4 Troponin I 0.11 H Total Protein 7.4 Albumin 3.0 L Urine Color Urine Appearance Urine pH Ur Specific [place] Urine Protein Urine Glucose (UA) Urine Ketones Urine Blood Urine Nitrite Urine Bilirubin Urine Urobilinogen Ur Leukocyte Esterase Alcohol, Quantitative 190.5 H 10/02/18 10/02/18 10:26 10:36 WBC RBC Hgb Hct MCV MCH MCHC RDW Plt Count MPV Absolute Neuts (auto) Neutrophils % Lymphocytes % Monocytes % Eosinophils % Basophils % Nucleated RBC % PT with INR 15.40 H INR 1.30 H Sodium Potassium Chloride Carbon Dioxide Anion Gap BUN Creatinine Est GFR (CKD-EPI)AfAm Est GFR (CKD-EPI)NonAf Random Glucose Calcium Total Bilirubin AST ALT Alkaline Phosphatase Creatine Kinase Creatine Kinase Index CK-MB (CK-2) Troponin I Total Protein Albumin Urine Color Yellow Urine Appearance Clear Urine pH 6.0 Ur Specific [place] 1.010 Urine Protein Negative Urine Glucose (UA) Negative Urine Ketones Negative Urine Blood Negative Urine Nitrite Negative Urine Bilirubin Negative Urine Urobilinogen 0.2 Ur Leukocyte Esterase Negative Alcohol, Quantitative ASSESSMENT/PLAN: Pt is a 83 y/o M with a significant pmh of HTN, borderline DM, COPD (Not on home O2), Asthma, and alcohol abuse who presented to [facility] due to chest pain and headache. # R/O Acute Coronary Syndrome -Troponin 0.11. Repeat pending. -EKG--> Sinus Rythm w/ 1st Degree AV Block w/ Premature Atrial complexes. Will repeat. -Echocardiogram to assess for wall abnormalities - Cardiology Consult and recs appreciated. -Telemetry -C/w home Nifedipine and Carvedilol -Low Salt/Diabetic Diet #DM ISS ACHS #COPD C/w Home meds #Alcohol abuse Librium Protocol. #FEN NS@75cc/hr Monitor Electrolytes Low Salt/Diabetic Diet #DVT ppx: Lovenox SQ 40 #Dispo Tele Visit type - Emergency Visit Emergency Visit: Yes ED Registration Date: 10/02/18 Care time: The patient presented to the Emergency Department on the above date and was hospitalized for further evaluation of their emergent condition. - New Patient This patient is new to me today: Yes Date on this admission: 10/02/18 - Critical Care Critical Care patient: No
[2018-10-02] MEDS ORDERED: DOCUSATE SODIUM 100 MG CAPSULE (FP) PO PRN (13:20)
[2018-10-02] MEDS: SODIUM CHLORIDE 1,000 ML IV SCH ×2 (14:32→22:16)
--- NOTE | 2018-10-02 15:23 | PN ---
Teaching Attending Note Name of Resident: Qasim Covarrubias ATTENDING PHYSICIAN STATEMENT I saw and evaluated the patient. I reviewed the resident's note and discussed the case with the resident. I agree with the resident's findings and plan as documented. SUBJECTIVE: This is an 83 year old man with a history of HTN, asthma/COPD, alcohol abuse who comes to the ED complaining of chest pain. He is a poor historian. The pain started last night while he was sitting on the couch. The pain was located in the left side of his chest, achy, and non-radiating. He denies having SOB, palpitations, dizziness, nausea. He says the pain did not go away until he got here. His main concern is that he has been stressed because of several family deaths and because he believes his has dementia. OBJECTIVE: Vital Signs Period Temp Pulse Resp BP Sys/Romero Pulse Ox Last 24 Hr 98 F 71-82 17-18 112-120/59-66 95-98 HEART: S1S2, RRR LUNGS: Clear ABDOMEN: Obese, soft, non-tender, non-distended, normal BS EXTREMITIES: Chronic venous stasis changes Laboratory Tests 10/02/18 10/02/18 10/02/18 10:25 10:25 10:25 WBC 4.1 RBC 4.23 Hgb 13.2 Hct 39.5 MCV 93.3 MCH 31.1 MCHC 33.4 RDW 15.6 Plt Count 308 D MPV 8.1 Absolute Neuts (auto) 2.0 Neutrophils % 49.3 Lymphocytes % 38.5 D Monocytes % 7.4 Eosinophils % 3.2 Basophils % 1.6 Nucleated RBC % 0 PT with INR INR Sodium 136 Potassium 4.3 Chloride 102 Carbon Dioxide 26 Anion Gap 8 BUN 12.4 Creatinine 0.8 Est GFR (CKD-EPI)AfAm 96.42 Est GFR (CKD-EPI)NonAf 83.19 Random Glucose 159 H Calcium 8.2 L Total Bilirubin 0.8 AST 47 H ALT 40 Alkaline Phosphatase 92 Creatine Kinase 229 Creatine Kinase Index 1.4 CK-MB (CK-2) 3.4 Troponin I 0.11 H Total Protein 7.4 Albumin 3.0 L Urine Color Urine Appearance Urine pH Ur Specific [place] Urine Protein Urine Glucose (UA) Urine Ketones Urine Blood Urine Nitrite Urine Bilirubin Urine Urobilinogen Ur Leukocyte Esterase Alcohol, Quantitative 190.5 H 10/02/18 10/02/18 10:26 10:36 WBC RBC Hgb Hct MCV MCH MCHC RDW Plt Count MPV Absolute Neuts (auto) Neutrophils % Lymphocytes % Monocytes % Eosinophils % Basophils % Nucleated RBC % PT with INR 15.40 H INR 1.30 H Sodium Potassium Chloride Carbon Dioxide Anion Gap BUN Creatinine Est GFR (CKD-EPI)AfAm Est GFR (CKD-EPI)NonAf Random Glucose Calcium Total Bilirubin AST ALT Alkaline Phosphatase Creatine Kinase Creatine Kinase Index CK-MB (CK-2) Troponin I Total Protein Albumin Urine Color Yellow Urine Appearance Clear Urine pH 6.0 Ur Specific [place] 1.010 Urine Protein Negative Urine Glucose (UA) Negative Urine Ketones Negative Urine Blood Negative Urine Nitrite Negative Urine Bilirubin Negative Urine Urobilinogen 0.2 Ur Leukocyte Esterase Negative Alcohol, Quantitative Home Medications Medication Instructions Recorded Bimatoprost [Lumigan] 1 drop OU HS 04/14/16 Levalbuterol Tartrate [Xopenex Hfa] 15 gm IH DAILY 09/02/17 Carvedilol [Coreg -] 25 mg PO BID #60 tablet 09/06/17 Docusate Sodium [Colace -] 100 mg PO DAILY PRN #30 capsule 09/06/17 Nifedipine [Nifedipine ER] 60 mg PO DAILY 10/02/18 ASSESSMENT AND PLAN: This is an 83 year old man with a history of HTN, asthma/COPD, alcohol abuse who presented to the ED with chest pain. 1. Chest pain with elevated troponin - No ischemic changes on EKG - Currently not having chest pain - Monitor on telemetry - Serial troponins - Echocardiogram - Cardiology evaluation 2. HTN - Continue Coreg, Procardia 3. Continuous alcohol dependence 4. Depression/anxiety - On Librium for alcohol detox - Will request evaluation by psychology
[2018-10-02] MEDS ORDERED: chlordiazePOXIDE HCL 25 MG CAPSULE PO PRN (16:11)
[2018-10-02 17:09] VITALS: BMI 34.7
[2018-10-02] MEDS: INSULIN SLIDING SCALE (NOVOLOG) 1 VIAL SQ SCH ×2 (17:30→23:04)
[2018-10-02] MEDS: chlordiazePOXIDE HCL 25 MG CAPSULE PO SCH ×2 (17:52→22:16)
[2018-10-02] MEDS: CARVEDILOL 25 MG TABLET (FP) PO SCH (22:16)
[2018-10-03] MEDS: chlordiazePOXIDE HCL 25 MG CAPSULE PO SCH ×2 (05:21→11:18)
[2018-10-03] MEDS: INSULIN SLIDING SCALE (NOVOLOG) 1 VIAL SQ SCH ×2 (06:10→11:20)
[2018-10-03 07:22] LABS: BASO % 0.9 % (0-2.0); EOS % 2.8 % (0-4.5); HEMATOCRIT 39.6 % (35.4-49); HEMOGLOBIN 13.2 GM/dL (11.7-16.9); LYMPH % 30.3 % (8-40); MCH 30.9 pg (25.7-33.7); MCHC 33.4 g/dl (32.0-35.9); MEAN CELL VOLUME 92.4 fl (80-96); MEAN PLT VOLUME 8.5 fl (7.5-11.1); MONO % 6.2 % (3.8-10.2); NEUT % 59.8 % (42.8-82.8); RBC 4.29 M/mm3 (4.00-5.60); RDW 15.2 % (11.9-15.9); WHITE BLOOD COUNT 6.6 K/mm3 (4.0-10.0)
[2018-10-03 07:35] LABS: INR 1.23 (0.83-1.09); PROTHROMBIN TIME (PATIENT) 14.6 SEC (9.7-13.0)
[2018-10-03 07:38] LABS: ACTIVATED PTT 34.5 SECONDS (25.2-36.5)
[2018-10-03 07:40] LABS: ALBUMIN 2.9 g/dl (3.4-5.0); BILIRUBIN,TOTAL 1.4 mg/dL (0.2-1); BLOOD UREA NITROGEN 10.6 mg/dL (7-18); CALCIUM 8.5 mg/dL (8.5-10.1); CREATININE 0.9 mg/dL (0.55-1.3); MAGNESIUM 1.8 mg/dL (1.8-2.4); PHOSPHOROUS 3.1 mg/dL (2.5-4.9); POTASSIUM 3.9 mmol/L (3.5-5.1); TOT PROT 7.1 g/dl (6.4-8.2)
[2018-10-03 08:35] LABS: PLATELET COUNT 296 K/MM3 (134-434)
[2018-10-03] MEDS: CARVEDILOL 25 MG TABLET (FP) PO SCH (09:40)
--- NOTE | 2018-10-03 09:53 | PN ---
Physical Exam: SUBJECTIVE: Patient seen and examined. He has no complaints. OBJECTIVE: Vital Signs Period Temp Pulse Resp BP Sys/Romero Pulse Ox Last 24 Hr 97.8 F-98.4 F 82-105 17-20 112-148/59-74 95-98 GENERAL: The patient is awake, alert, and fully oriented, in no acute distress. HEAD: Normal with no signs of trauma. EYES: PERRL, extraocular movements intact, sclera anicteric, conjunctiva clear. No ptosis. ENT: Ears normal, nares patent, oropharynx clear without exudates, moist mucous membranes. NECK: Trachea midline, full range of motion, supple. LUNGS: Breath sounds equal, clear to auscultation bilaterally, no wheezes, no crackles, no accessory muscle use. HEART: Regular rate and rhythm, S1, S2 without murmur, rub or gallop. ABDOMEN: Soft, nontender, nondistended, normoactive bowel sounds, no guarding, no rebound, no hepatosplenomegaly, no masses. EXTREMITIES: 2+ pulses, warm, well-perfused, no edema. NEUROLOGICAL: Cranial nerves II through XII grossly intact. Normal speech, gait not observed. PSYCH: Normal mood, normal affect. SKIN: Warm, dry, normal turgor, no rashes or lesions noted Laboratory Results - last 24 hr 10/02/18 10/02/18 10/02/18 10:25 10:25 10:25 WBC 4.1 RBC 4.23 Hgb 13.2 Hct 39.5 MCV 93.3 MCH 31.1 MCHC 33.4 RDW 15.6 Plt Count 308 D MPV 8.1 Absolute Neuts (auto) 2.0 Neutrophils % 49.3 Lymphocytes % 38.5 D Monocytes % 7.4 Eosinophils % 3.2 Basophils % 1.6 Nucleated RBC % 0 PT with INR INR PTT (Actin FS) Sodium 136 Potassium 4.3 Chloride 102 Carbon Dioxide 26 Anion Gap 8 BUN 12.4 Creatinine 0.8 Est GFR (CKD-EPI)AfAm 96.42 Est GFR (CKD-EPI)NonAf 83.19 POC Glucometer Random Glucose 159 H Hemoglobin A1c % Calcium 8.2 L Phosphorus Magnesium Total Bilirubin 0.8 AST 47 H ALT 40 Alkaline Phosphatase 92 Creatine Kinase 229 Creatine Kinase Index 1.4 CK-MB (CK-2) 3.4 Troponin I 0.11 H Total Protein 7.4 Albumin 3.0 L Triglycerides Cholesterol Total LDL Cholesterol HDL Cholesterol Urine Color Urine Appearance Urine pH Ur Specific [place] Urine Protein Urine Glucose (UA) Urine Ketones Urine Blood Urine Nitrite Urine Bilirubin Urine Urobilinogen Ur Leukocyte Esterase Alcohol, Quantitative 190.5 H 10/02/18 10/02/18 10/02/18 10:26 10:36 16:26 WBC RBC Hgb Hct MCV MCH MCHC RDW Plt Count MPV Absolute Neuts (auto) Neutrophils % Lymphocytes % Monocytes % Eosinophils % Basophils % Nucleated RBC % PT with INR 15.40 H INR 1.30 H PTT (Actin FS) Sodium Potassium Chloride Carbon Dioxide Anion Gap BUN Creatinine Est GFR (CKD-EPI)AfAm Est GFR (CKD-EPI)NonAf POC Glucometer Random Glucose Hemoglobin A1c % Calcium Phosphorus Magnesium Total Bilirubin AST ALT Alkaline Phosphatase Creatine Kinase Creatine Kinase Index CK-MB (CK-2) Troponin I 0.10 H Total Protein Albumin Triglycerides Cholesterol Total LDL Cholesterol HDL Cholesterol Urine Color Yellow Urine Appearance Clear Urine pH 6.0 Ur Specific [place] 1.010 Urine Protein Negative Urine Glucose (UA) Negative Urine Ketones Negative Urine Blood Negative Urine Nitrite Negative Urine Bilirubin Negative Urine Urobilinogen 0.2 Ur Leukocyte Esterase Negative Alcohol, Quantitative 10/02/18 10/02/18 10/03/18 17:18 23:02 05:13 WBC RBC Hgb Hct MCV MCH MCHC RDW Plt Count MPV Absolute Neuts (auto) Neutrophils % Lymphocytes % Monocytes % Eosinophils % Basophils % Nucleated RBC % PT with INR INR PTT (Actin FS) Sodium Potassium Chloride Carbon Dioxide Anion Gap BUN Creatinine Est GFR (CKD-EPI)AfAm Est GFR (CKD-EPI)NonAf POC Glucometer 131 118 133 Random Glucose Hemoglobin A1c % Calcium Phosphorus Magnesium Total Bilirubin AST ALT Alkaline Phosphatase Creatine Kinase Creatine Kinase Index CK-MB (CK-2) Troponin I Total Protein Albumin Triglycerides Cholesterol Total LDL Cholesterol HDL Cholesterol Urine Color Urine Appearance Urine pH Ur Specific [place] Urine Protein Urine Glucose (UA) Urine Ketones Urine Blood Urine Nitrite Urine Bilirubin Urine Urobilinogen Ur Leukocyte Esterase Alcohol, Quantitative 10/03/18 10/03/18 10/03/18 06:32 06:32 06:32 WBC 6.6 RBC 4.29 Hgb 13.2 Hct 39.6 MCV 92.4 MCH 30.9 MCHC 33.4 RDW 15.2 Plt Count 296 MPV 8.5 Absolute Neuts (auto) 4.0 Neutrophils % 59.8 D Lymphocytes % 30.3 D Monocytes % 6.2 Eosinophils % 2.8 Basophils % 0.9 Nucleated RBC % 0 PT with INR 14.60 H INR 1.23 H PTT (Actin FS) 34.5 Sodium 137 Potassium 3.9 Chloride 104 Carbon Dioxide 25 Anion Gap 8 BUN 10.6 Creatinine 0.9 Est GFR (CKD-EPI)AfAm 91.86 Est GFR (CKD-EPI)NonAf 79.26 POC Glucometer Random Glucose 132 H Hemoglobin A1c % Calcium 8.5 Phosphorus 3.1 Magnesium 1.8 Total Bilirubin 1.4 H AST 45 H ALT 37 Alkaline Phosphatase 93 Creatine Kinase Creatine Kinase Index CK-MB (CK-2) Troponin I Total Protein 7.1 Albumin 2.9 L Triglycerides 135 Cholesterol 102 Total LDL Cholesterol 37 HDL Cholesterol 46 Urine Color Urine Appearance Urine pH Ur Specific [place] Urine Protein Urine Glucose (UA) Urine Ketones Urine Blood Urine Nitrite Urine Bilirubin Urine Urobilinogen Ur Leukocyte Esterase Alcohol, Quantitative 10/03/18 06:48 WBC RBC Hgb Hct MCV MCH MCHC RDW Plt Count MPV Absolute Neuts (auto) Neutrophils % Lymphocytes % Monocytes % Eosinophils % Basophils % Nucleated RBC % PT with INR INR PTT (Actin FS) Sodium Potassium Chloride Carbon Dioxide Anion Gap BUN Creatinine Est GFR (CKD-EPI)AfAm Est GFR (CKD-EPI)NonAf POC Glucometer Random Glucose Hemoglobin A1c % 5.9 Calcium Phosphorus Magnesium Total Bilirubin AST ALT Alkaline Phosphatase Creatine Kinase Creatine Kinase Index CK-MB (CK-2) Troponin I Total Protein Albumin Triglycerides Cholesterol Total LDL Cholesterol HDL Cholesterol Urine Color Urine Appearance Urine pH Ur Specific [place] Urine Protein Urine Glucose (UA) Urine Ketones Urine Blood Urine Nitrite Urine Bilirubin Urine Urobilinogen Ur Leukocyte Esterase Alcohol, Quantitative Active Medications Generic Name Dose Route Start Last Admin Trade Name Freq PRN Reason Stop Dose Admin Carvedilol 25 mg 10/02/18 22:00 10/03/18 09:40 Coreg - PO 25 mg BID PEREZ Administration Chlordiazepoxide HCl 10 mg 10/04/18 17:00 Librium - PO 10/05/18 11:01 [id number] PEREZ Chlordiazepoxide HCl 10 mg 10/05/18 17:00 Librium - PO 10/06/18 17:01 Q12H PEREZ Chlordiazepoxide HCl 10 mg 10/04/18 17:00 Librium - PO 10/05/18 17:00 Q4H PRN WITHDRAWAL(CONT SUBST) Chlordiazepoxide HCl 50 mg 10/02/18 17:00 10/03/18 05:21 Librium - PO 10/03/18 11:01 50 mg [id number] PEREZ Administration Chlordiazepoxide HCl 25 mg 10/03/18 17:00 Librium - PO 10/04/18 11:01 [id number] PEREZ Chlordiazepoxide HCl 25 mg 10/02/18 16:11 Librium - PO 10/04/18 17:00 Q4H PRN WITHDRAWAL(CONT SUBST) Docusate Sodium 100 mg 10/02/18 13:20 Colace - PO DAILY PRN CONSTIPATION Enoxaparin Sodium 40 mg 10/03/18 10:00 10/03/18 09:41 Lovenox - SQ 40 mg DAILY PEREZ Administration Sodium Chloride 1,000 mls @ 75 mls/hr 10/02/18 13:45 10/02/18 22:16 Normal Saline - IV 75 mls/hr ASDIR PEREZ Administration Insulin Aspart 1 vial 10/02/18 16:30 10/03/18 06:10 Novolog Vial Sliding Scale - SQ Not Given ACHS PEREZ Protocol Latanoprost 1 drop 10/03/18 22:00 Xalatan 0.005% Eye Drops - OU HS PEREZ Nifedipine 60 mg 10/03/18 10:00 10/03/18 09:40 Procardia Xl - PO 60 mg DAILY PEREZ Administration Non-Formulary Medication 15 gm 10/03/18 10:00 Levalbuterol Tartrate [Xopenex Hfa] IH DAILY PEREZ ASSESSMENT/PLAN:
[2018-10-03] MEDS ORDERED: ENOXAPARIN NA (PORCINE) 40 MG/0.4 ML DISP.SYRIN SQ SCH (10:00)
[2018-10-03] MEDS ORDERED: NIFEdipine E.R 60 MG TABLET (UD) PO SCH (10:00)
[2018-10-03] MEDS ORDERED: PATIENT'S OWN MEDICATION (NON-FORMULARY) (Levalbuterol Tartrate [Xopenex Hfa] 15 GM) IH SCH (10:00)
[2018-10-03] MEDS ORDERED: INSULIN SLIDING SCALE (NOVOLOG) 1 VIAL SQ ONE (11:15)
--- NOTE | 2018-10-03 12:42 | CON.CARD ---
Consult Consult Specialty:: Cardiology Referred by:: Letty Coronel Reason for Consultation:: chest pain - History of Present Illness Chief Complaint: chest pain History of Present Illness: 83 year old male with a pmhx of htn, asthma/copd, pvd, etoh abuse, CAD s/p inferior infarct on NST 2018, and h/o afib in the past presenting with ? chest pain. Patient is a poor historian and today denies any chest pain history to me. Says he came to the ER because his son told him to because he has not been able to sleep at night resulting in drinking etoh. No chest pain, sob, or palpitations. No pnd, orthopnea, or edema. As per chart, patient had chest pain which resolved when arrived to the ER. EKG no acute ischemic changes. Troponin is 0.11 - History Source History Provided By: Patient, Medical Record - Past Medical History Cardio/Vascular: Yes: AFIB, CAD - Alcohol/Substance Use Hx Alcohol Use: Yes (daily 4 beers "sometimes more") - Smoking History Smoking history: Never smoked Have you smoked in the past 12 months: No If you are a former smoker, when did you quit?: 1973 Home Medications - Allergies Allergies/Adverse Reactions: Allergies Allergy/AdvReac Type Severity Reaction Status Date / Time No Known Allergies Allergy Verified 10/02/18 09:00 - Home Medications Home Medications: Ambulatory Orders Bimatoprost [Lumigan] 1 drop OU HS 04/14/16 Levalbuterol Tartrate [Xopenex Hfa] 15 gm IH DAILY 09/02/17 Carvedilol [Coreg -] 25 mg PO BID #60 tablet 09/06/17 Docusate Sodium [Colace -] 100 mg PO DAILY PRN #30 capsule 09/06/17 Nifedipine [Nifedipine ER] 60 mg PO DAILY 10/02/18 Family Disease History - Family Disease History Family Disease History: Other: Brother (ALCOHOL,) Vital Signs: Vital Signs Temperature 98 F 10/03/18 10:00 Pulse Rate 94 H 10/03/18 10:00 Respiratory Rate 18 10/03/18 10:00 Blood Pressure 122/54 L 10/03/18 10:00 O2 Sat by Pulse Oximetry (%) 97 10/03/18 09:00 Constitutional: Yes: No Distress Neck: Yes: WNL Respiratory: Yes: CTA Bilaterally Gastrointestinal: Yes: Normal Bowel Sounds, Soft Cardiovascular: Yes: Regular Rate and Rhythm JVD: No Carotid Bruit: No PMI: Non-Displaced Heart Sounds: Yes: S1, S2 Murmur: No: Systolic Murmur Edema: No - Other Data Labs, Other Data: CBC, BMP 10/03/18 06:32 10/03/18 06:32 INR, PTT INR 1.23 (0.83-1.09) H 10/03/18 06:32 Troponin, BNP 10/02/18 10/03/18 16:26 06:32 Troponin I 0.10 H 0.11 H Troponin, BNP 10/02/18 10/03/18 16:26 06:32 Troponin I 0.10 H 0.11 H Imaging - Results Chest X-ray: Report Reviewed EKG: Image Reviewed Assessment/Plan 83 year old male with a pmhx of htn, asthma/copd, pvd, etoh abuse, CAD s/p inferior infarct on NST 2017, and h/o afib in the past presenting with ? chest pain. Patient is a poor historian and today denies any chest pain history to me. Says he came to the ER because his son told him to because he has not been able to sleep at night resulting in drinking etoh. No chest pain, sob, or palpitations. No pnd, orthopnea, or edema. As per chart, patient had chest pain which resolved when arrived to the ER. EKG no acute ischemic changes. Troponin is 0.11 CXR no chf EKG: sinus rhythm, lvh, pac's, 1avb, no acute st changes 1) CAD/chest pain -Patient is poor historian as no chest pain on history with me. Either way no acute ischemic ekg changes. CK normal. Troponin is 0.11 which is chronic as last year trop 0.2. NST 09/2017 with inferior infarct and no ischemia. Echo in 2018 normal LVEF. Etoh abuse with etoh level 190 ?compliance -No further ischemia work up at this time. Should follow up as outpatient with Dr. Roberto. Had followed last October 2017 but not since. 2) Afib Report of afib last year at [facility] and was started at the time on apixaban. 1 week event monitor 10/2017 no afib Rate control on carvedilol. Avoid etoh. Patient does not know about blood thinners. Please clarify with son if taking apixaban/eliquis at home. Should follow up with Dr. Roberto as outpatient
--- NOTE | 2018-10-03 15:03 | DS ---
Physical Exam: SUBJECTIVE: Patient seen and examined OBJECTIVE: Vital Signs Period Temp Pulse Resp BP Sys/Romero Pulse Ox Last 24 Hr 97.8 F-98.4 F 83-105 18-20 118-148/54-74 97-98 PHYSICAL EXAM GENERAL: The patient is awake, alert, and fully oriented, in no acute distress. HEAD: Normal with no signs of trauma. EYES: PERRL, extraocular movements intact, sclera anicteric, conjunctiva clear. ENT: Ears normal, nares patent, oropharynx clear without exudates, moist mucous membranes. NECK: Trachea midline, full range of motion, supple. LUNGS: Breath sounds equal, clear to auscultation bilaterally, no wheezes, no crackles, no accessory muscle use. HEART: Regular rate and rhythm, S1, S2 without murmur, rub or gallop. ABDOMEN: Soft, nontender, nondistended, normoactive bowel sounds, no guarding, no rebound, no hepatosplenomegaly, no masses. EXTREMITIES: 2+ pulses, warm, well-perfused, no edema. NEUROLOGICAL: Cranial nerves II through XII grossly intact. Normal speech, gait not observed. PSYCH: Normal mood, normal affect. SKIN: Warm, dry, normal turgor, no rashes or lesions noted. LABS Laboratory Results - last 24 hr 10/02/18 10/02/18 10/02/18 16:26 17:18 23:02 WBC RBC Hgb Hct MCV MCH MCHC RDW Plt Count MPV Absolute Neuts (auto) Neutrophils % Lymphocytes % Monocytes % Eosinophils % Basophils % Nucleated RBC % PT with INR INR PTT (Actin FS) Sodium Potassium Chloride Carbon Dioxide Anion Gap BUN Creatinine Est GFR (CKD-EPI)AfAm Est GFR (CKD-EPI)NonAf POC Glucometer 131 118 Random Glucose Hemoglobin A1c % Calcium Phosphorus Magnesium Total Bilirubin AST ALT Alkaline Phosphatase Troponin I 0.10 H Total Protein Albumin Triglycerides Cholesterol Total LDL Cholesterol HDL Cholesterol 10/03/18 10/03/18 10/03/18 05:13 06:32 06:32 WBC 6.6 RBC 4.29 Hgb 13.2 Hct 39.6 MCV 92.4 MCH 30.9 MCHC 33.4 RDW 15.2 Plt Count 296 MPV 8.5 Absolute Neuts (auto) 4.0 Neutrophils % 59.8 D Lymphocytes % 30.3 D Monocytes % 6.2 Eosinophils % 2.8 Basophils % 0.9 Nucleated RBC % 0 PT with INR 14.60 H INR 1.23 H PTT (Actin FS) 34.5 Sodium Potassium Chloride Carbon Dioxide Anion Gap BUN Creatinine Est GFR (CKD-EPI)AfAm Est GFR (CKD-EPI)NonAf POC Glucometer 133 Random Glucose Hemoglobin A1c % Calcium Phosphorus Magnesium Total Bilirubin AST ALT Alkaline Phosphatase Troponin I Total Protein Albumin Triglycerides Cholesterol Total LDL Cholesterol HDL Cholesterol 10/03/18 10/03/18 10/03/18 06:32 06:48 11:20 WBC RBC Hgb Hct MCV MCH MCHC RDW Plt Count MPV Absolute Neuts (auto) Neutrophils % Lymphocytes % Monocytes % Eosinophils % Basophils % Nucleated RBC % PT with INR INR PTT (Actin FS) Sodium 137 Potassium 3.9 Chloride 104 Carbon Dioxide 25 Anion Gap 8 BUN 10.6 Creatinine 0.9 Est GFR (CKD-EPI)AfAm 91.86 Est GFR (CKD-EPI)NonAf 79.26 POC Glucometer 137 Random Glucose 132 H Hemoglobin A1c % 5.9 Calcium 8.5 Phosphorus 3.1 Magnesium 1.8 Total Bilirubin 1.4 H AST 45 H ALT 37 Alkaline Phosphatase 93 Troponin I 0.11 H Total Protein 7.1 Albumin 2.9 L Triglycerides 135 Cholesterol 102 Total LDL Cholesterol 37 HDL Cholesterol 46 HOSPITAL COURSE: Date of Admission:10/02/18 Date of Discharge: 10/03/18 Minutes to complete discharge: 30 Discharge Summary Reason For Visit: ALCOHOL ABUSE;ACUTE CORONARY SYNDROME;HYPERTENSION Current Active Problems COPD (chronic obstructive pulmonary disease) (Chronic) Type 2 diabetes mellitus (Chronic) Chest pain (Acute) Frequent falls (Chronic) Essential hypertension (Chronic) Glaucoma, both eyes (Chronic) Insomnia (Chronic) Asthma (Chronic) Venous (peripheral) insufficiency (Chronic) Transaminitis (Chronic) Elevated troponin level (Chronic) ACS (acute coronary syndrome) (Acute) ETOH abuse (Acute) Condition: Stable - Instructions Diet, Activity, Other Instructions: You were admitted to [facility] on October 02 for evaluation of chest pain. You were placed on a heart monitor and had a normal heart rhythm. Blood work and EKG showed no evidence that you were having a heart attack. You were seen by a aerobics instructor, Dr. Andi Kraus. You are being discharged home on October 03. You may resume your usual diet and activity. You should continue taking all your medications as you were before this admission. You should call Dr. Roberto's office tomorrow to schedule an appointment this week. Please clarify with Dr. Roberto whether you should be taking a blood thinner - you were started on Eliquis last year for atrial fibrillation. Please return to the ER if you have chest pain, palpitations, or shortness of breath. Referrals: Aric Roberto MD [Staff Physician] - 1 Week Disposition: HOME - Home Medications Comprehensive Discharge Medication List: Ambulatory Orders Bimatoprost [Lumigan] 1 drop OU HS 04/14/16 Levalbuterol Tartrate [Xopenex Hfa] 15 gm IH DAILY 09/02/17 Carvedilol [Coreg -] 25 mg PO BID #60 tablet 09/06/17 Docusate Sodium [Colace -] 100 mg PO DAILY PRN #30 capsule 09/06/17 Nifedipine [Nifedipine ER] 60 mg PO DAILY 10/02/18
[2018-10-03 16:37] VITALS: BP 121/62; PULSE 80; TEMP 97.8
[2018-10-03] MEDS ORDERED: chlordiazePOXIDE HCL 25 MG CAPSULE PO SCH (17:00)
[2018-10-03] MEDS ORDERED: LATANOPROST 0.005% OPHTH SOLN 2.5ML BOTTLE OU SCH (22:00)
--- NOTE | 2018-10-04 00:27 | EKG ---
Test Reason : Blood Pressure : / mmHG Vent. Rate : 080 BPM Atrial Rate : 080 BPM P-R Int : 210 ms QRS Dur : 098 ms QT Int : 414 ms P-R-T Axes : 068 -10 061 degrees QTc Int : 477 ms SINUS RHYTHM WITH 1ST DEGREE A-V BLOCK WITH PREMATURE ATRIAL COMPLEXES MINIMAL VOLTAGE CRITERIA FOR LVH, MAY BE NORMAL VARIANT BORDERLINE ECG Confirmed by MD Efra, Andi ([id number]) on 10/04/2018 12:27:23 AM Referred By: Confirmed By:Andi Kraus MD
[2018-10-04] MEDS ORDERED: chlordiazePOXIDE HCL 10 MG CAPSULE PO SCH (17:00)
[2018-10-04] MEDS ORDERED: chlordiazePOXIDE HCL 10 MG CAPSULE PO PRN (17:00)
[2018-10-05] MEDS ORDERED: chlordiazePOXIDE HCL 10 MG CAPSULE PO SCH (17:00)
== END 2018-10-03 16:26 | disposition home or self-care (01) | DRG 303 ==
LOC: JER 08:54 → JERBED 12:35 → INTOOBSV 12:35 → UNDOADMOB 12:35 → JERBED 12:36 → OBSVTOIN 13:16 → J4S 16:06
PROVIDERS: ADMIT Internal Medicine; ATTEND Internal Medicine
DX: I25.10 Atherosclerotic heart disease of native coronary artery without angina pectoris (principal); I73.9 Peripheral vascular disease, unspecified; I10 Essential (primary) hypertension; E86.0 Dehydration; H40.9 Unspecified glaucoma; I44.0 Atrioventricular block, first degree; R73.03 Prediabetes; J44.9 Chronic obstructive pulmonary disease, unspecified; R51 Headache; F10.20 Alcohol dependence, uncomplicated; F41.8 Other specified anxiety disorders
CPT/HCPCS: 36415; 71045-TC-FY; 76705-TC; 80053; 80061; 80307; 81003; 82550; 82553; 82962; 83036; 83721; 83735; 84100; 84484; 85025; 85610; 85730; 93005; 93010; 99285-25; G0378; J7030

== ENCOUNTER 2018-10-20 22:07 | Inpatient (IN) | payer OTHER ==
--- NOTE | 2018-10-20 22:47 | PDOC ---
Medical Decision Making - Medical Decision Making 10/20/18 22:47 Patient seen by the advanced practice provider under my direct supervision. Ancillary testing reviewed as necessary. I agree with plan as outlined by the advanced practice provider. *DC/Admit/Observation/Transfer - Referrals Referrals: Mauricio Patel [Primary Care Provider] - - Patient Instructions - Post Discharge Activity
--- NOTE | 2018-10-20 23:27 | PDOC ---
Documentation entered by Darin Bowie SCRIBE, acting as scribe for Lindsay Durham DO. Lindsay Durham DO: This documentation has been prepared by the Jamir goldstein Xhesika, SCRIBE, under my direction and personally reviewed by me in its entirety. I confirm that the documentation accurately reflects all work, treatment, procedures, and medical decision making performed by me. History of Present Illness - General Stated Complaint: FALL Time Seen by Provider: 10/20/18 22:46 History Source: Patient, Care Provider Exam Limitations: No Limitations - History of Present Illness Initial Comments: 10/20/18 23:12 The patient is an 83 year old male, with a significant PMH of HTN and Asthma who presents to the emergency department s/p mechanical fall. As per at bedside, the patient had 3/4 drinks during dinner, he was going up the stairs, his knees buckled and he fell. The patient states he felt dizzy prior to his fall, however, he denies hitting his head and is unsure if he lost consciousness. The patient states he has been endorsing decreased PO intake for the last couple of days. Patient is a poor historian, however, he denies any complaints at the moment. The patient denies any seizure activity, chest pain, shortness of breath, headache and dizziness. Denies fever, chills, nausea, vomiting, diarrhea and constipation. Denies dysuria, frequency, urgency and hematuria. Allergies: NKDA Past surgical history: R knee replacement (2005) Social history: Daily alcohol use PCP: Mauricio Aiken Past History - Past Medical History Allergies/Adverse Reactions: Allergies Allergy/AdvReac Type Severity Reaction Status Date / Time No Known Allergies Allergy Verified 10/02/18 09:00 Home Medications: Ambulatory Orders Bimatoprost [Lumigan] 1 drop OU HS 04/14/16 Levalbuterol Tartrate [Xopenex Hfa] 15 gm IH DAILY 09/02/17 Carvedilol [Coreg -] 25 mg PO BID #60 tablet 09/06/17 Docusate Sodium [Colace -] 100 mg PO DAILY PRN #30 capsule 09/06/17 Nifedipine [Nifedipine ER] 60 mg PO DAILY 10/02/18 Anemia: No Asthma: Yes (ON ALBUTEROL INHALER) Cancer: No Cardiac Disorders: No CVA: No COPD: No CHF: No Dementia: No Diabetes: Yes GI Disorders: No Disorders: No HTN: Yes Hypercholesterolemia: No Kidney Stones: No Liver Disease: No Seizures: No Thyroid Disease: No - Surgical History Orthopedic Surgery: Yes (RIGHT KNEE REPLACEMENT IN 2006) - Reproductive History Testicular Surgery: No - Suicide/Smoking/Psychosocial Hx Smoking History: Never smoked Have you smoked in the past 12 months: No If you are a former smoker, when did you quit?: 1973 Hx Alcohol Use: Yes (daily 4 beers "sometimes more") Drug/Substance Use Hx: No Substance Use Type: Alcohol Hx Substance Use Treatment: No Review of Systems - Review of Systems Able to Perform ROS?: Yes Comments:: 10/20/18 23:13 GENERAL/CONSTITUTIONAL: No fever or chills. No weakness. HEAD, EYES, EARS, NOSE AND THROAT: No change in vision. No ear pain or discharge. No sore throat. CARDIOVASCULAR: No chest pain or shortness of breath. RESPIRATORY: No cough, wheezing, or hemoptysis. GASTROINTESTINAL: No nausea, vomiting, diarrhea or constipation. (+) Decreased PO intake. GENITOURINARY: No dysuria, frequency, or change in urination. MUSCULOSKELETAL: No joint or muscle swelling or pain. No neck or back pain. SKIN: No rash NEUROLOGIC: No headache, vertigo, loss of consciousness, or change in strength/ sensation. ENDOCRINE: No increased thirst. No abnormal weight change. HEMATOLOGIC/LYMPHATIC: No anemia, easy bleeding, or history of blood clots. ALLERGIC/IMMUNOLOGIC: No hives or skin allergy. *Physical Exam - Physical Exam Comments: 10/20/18 23:13 GENERAL: Awake, alert, and fully oriented, in no acute distress HEAD: No signs of trauma EYES: PERRLA, EOMI, sclera anicteric, conjunctiva clear ENT: Auricles normal inspection, hearing grossly normal, nares patent, oropharynx clear without exudates. Moist mucosa. NECK: Normal ROM, supple, no lymphadenopathy, JVD, or masses LUNGS: Breath sounds equal, clear to auscultation bilaterally. No wheezes, and no crackles HEART: Regular rate and rhythm, normal S1 and S2, no murmurs, rubs or gallops ABDOMEN: Soft, nontender, normoactive bowel sounds. No guarding, no rebound. No masses EXTREMITIES: Normal range of motion, no edema. No clubbing or cyanosis. No cords, erythema, or tenderness NEUROLOGICAL: Cranial nerves II through XII grossly intact. Normal speech. SKIN: Warm, Dry, normal turgor, no rashes or lesions noted. Heart Score/ECG Review - ECG Intrepretation Comment:: 10/21/18 00:07 sinus at 95, 1st degree av block, q waves inferiorly which are age indeterminate , pvc, no acute st/t wave findings ED Treatment Course - LABORATORY CBC & Chemistry Diagram: 10/21/18 05:45 10/21/18 05:45 - RADIOLOGY Radiology Studies Ordered: Category Date Time Status CERVICAL SPINE CT W/O CONTR [CT] Stat CT Scan 10/20/18 23:[address] WITHOUT CONTRAST [CT] Stat CT Scan 10/20/18 23:04 Ordered CHEST PA & LAT [RAD] Stat Radiology 10/20/18 23:06 Ordered PELVIS [RAD] Stat Radiology 10/20/18 23:06 Ordered Medical Decision Making - Critical Care Time Total Critical Care Time (minutes): 45 Critical Care Statement: The care of this patient involved high complexity decision making to prevent further life threatening deterioration of the patient 's condition and/or to evaluate & treat vital organ system(s) failure or risk of failure. - Medical Decision Making 10/20/18 23:25 a/p: 83yo male s/p a mechanical fall at home with unknown loc -pt and his were drinking etoh tonight -states he was walking towards the stairs when his knee gave out and he fell -per the patient - +loc, per the no loc -pt admits to have a few drinks tonight -pt denies all complaints at this time -nonfocal neuro, however poss head injury with etoh -will send labs, ct head, ct c spine -will monitor and reassess 10/21/18 00:26 normal wbc and h/h 10/21/18 01:15 mildly elevated trop- at same level as last admission 18 days ago alcohol pending imaging pending 10/21/18 01:18 no acute fx seen on pelvis xray and cxr clear poss sdh on ct - pending official read 10/21/18 01:21 case discussed with cardiology - dr. wynn, trend trop 10/21/18 01:47 ct head shows 6.4x5.2x2.6cm extra-axial encapsulated fluid collection - poss chronic epidural vs chronic cystic structure call placed to neurosx 10/21/18 01:48 etoh 242 10/21/18 01:50 ct cspine - no acute fx 10/21/18 16:58 pt was signed out to the oncoming ed physician pending discussion with symphony case discussed with dr. corbin who recommended repeat head ct at 12 hours. *DC/Admit/Observation/Transfer Diagnosis at time of Disposition: Elevated troponin level, ETOH abuse, Frequent falls, Abnormal head CT - Discharge Dispostion Condition at time of disposition: Fair Decision to Admit order: Yes - Referrals - Patient Instructions - Post Discharge Activity - Attestations Physician Attestion: 10/21/18 16:59 I, Dr. Lindsay Durham, DO, attest that this document has been prepared under my direction and personally reviewed by me in its entirety. I further attest, that it accurately reflects all work, treatment, procedures and medical decision -making performed by me.
[2018-10-20] MEDS ORDERED: chlordiazePOXIDE HCL 25 MG CAPSULE PO ONE (23:36)
[2018-10-21] MEDS ORDERED: chlordiazePOXIDE HCL 25 MG CAPSULE ONE (00:03)
[2018-10-21 00:16] LABS: BASO % 3.1 % (0-2.0); EOS % 2.6 % (0-4.5); HEMATOCRIT 43.8 % (35.4-49); HEMOGLOBIN 14.3 GM/dL (11.7-16.9); LYMPH % 48.5 % (8-40); MCH 30.7 pg (25.7-33.7); MCHC 32.7 g/dl (32.0-35.9); MEAN CELL VOLUME 93.8 fl (80-96); MEAN PLT VOLUME 8.3 fl (7.5-11.1); MONO % 6.8 % (3.8-10.2); PLATELET COUNT 231 K/MM3 (134-434); RBC 4.67 M/mm3 (4.00-5.60); RDW 15.3 % (11.9-15.9); WHITE BLOOD COUNT 4.7 K/mm3 (4.0-10.0)
[2018-10-21 00:29] LABS: INR 1.26 (0.83-1.09); PROTHROMBIN TIME (PATIENT) 14.9 SEC (9.7-13.0)
[2018-10-21 00:32] LABS: ACTIVATED PTT 33.8 SECONDS (25.2-36.5)
[2018-10-21 00:39] LABS: ALBUMIN 3.2 g/dl (3.4-5.0); BILIRUBIN,TOTAL 0.5 mg/dL (0.2-1); BLOOD UREA NITROGEN 11.9 mg/dL (7-18); CALCIUM 8.5 mg/dL (8.5-10.1); CREATININE 0.8 mg/dL (0.55-1.3); MAGNESIUM 1.8 mg/dL (1.8-2.4); POTASSIUM 3.8 mmol/L (3.5-5.1); TOT PROT 7.8 g/dl (6.4-8.2)
--- NOTE | 2018-10-21 02:56 | PN ---
Teaching Attending Note Name of Resident: Nori Calix ATTENDING PHYSICIAN STATEMENT I saw and evaluated the patient. I reviewed the resident's note and discussed the case with the resident. I agree with the resident's findings and plan as documented. SUBJECTIVE: Patient is an 83 year old man with a PMH of Alcohol abuse, HTN, Borderline DM, PVD, Right knee replacement and COPD/Asthma who presents to the ER after a mechanical fall. As per at bedside, the patient had about 3 to 4 drinks during dinner, he was going up the stairs, his knees buckled and he fell. The patient states he felt dizzy prior to his fall, however, he denies hitting his head and is unsure if he lost consciousness. The patient states he has been endorsing decreased PO intake for the last couple of days. Patient says he feels depressed after loosing several family members in the past 1 year. Denies suicidal and homicidal ideation. The patient denies any seizure activity, chest pain, shortness of breath, headache and dizziness. Denies fever, chills, nausea , vomiting, diarrhea and constipation. Denies dysuria, frequency, urgency and hematuria. OBJECTIVE: Alert Vital Signs Period Temp Pulse Resp BP Sys/Romero Pulse Ox Last 24 Hr 97.9 F-97.9 F 98-98 20-20 140-140/76-76 95-96 HEENT: No Jaundice, eye redness or discharge, PERRLA, EOMI. Normocephalic, atraumatic. External ears are normal and hearing is grossly intact. No nasal discharge. Neck: Supple, nontender. No palpable adenopathy or thyromegaly. No JVD Chest: Good effort. Clear to auscultation and percussion. Heart: Regular. No S3, rub or murmur Abdomen: Not distended, soft, nontender and no HSM. No rebound or guarding. Normal bowel sounds. Ext: Peripheral pulses intact. No leg edema. Dry flaky lower leg area. Skin: Warm and dry. No petechiae, rash or ecchymosis. Neuro: Alert. Oriented x3. No asterexis or tremors. CN 2-12 grossly intact. Sensation grossly intact in all four extremities and DTR are symmetric. Psych: Appropriate mood and affect. Good insight. No suicidal or homicidal ideation. Current Medications Generic Name Dose Route Start Last Admin Trade Name Freq PRN Reason Stop Dose Admin Enoxaparin Sodium 40 mg 10/21/18 10:00 Lovenox - SQ DAILY [facility] Folic Acid 0.4 mg 10/21/18 03:27 10/21/18 04:22 Folic Acid Injection - IVPB 0.4 mg DAILY PEREZ Administration Sodium Chloride 1,000 mls @ 50 mls/hr 10/21/18 03:30 10/21/18 04:11 Normal Saline - IV 50 mls/hr ASDIR PEREZ Administration Lorazepam 0.5 mg 10/23/18 05:00 Ativan - PO 10/23/18 23:01 Q6H PEREZ Lorazepam 0.5 mg 10/23/18 00:00 Ativan - PO 10/24/18 00:00 Q4H PRN Symptoms of Withdrawal Lorazepam 0.5 mg 10/24/18 05:00 Ativan - PO 10/24/18 05:01 ONCE ONE Lorazepam 1 mg 10/22/18 05:00 Ativan - PO 10/22/18 23:01 0500,1100,1700,2300 PEREZ Lorazepam 1 mg 10/21/18 03:26 Ativan - PO 10/23/18 00:00 Q4H PRN Symptoms of Withdrawal Thiamine HCl 200 mg 10/21/18 10:00 Vitamin B1 Injection - IVPB BID [facility] Home Medications Medication Instructions Recorded Bimatoprost [Lumigan] 1 drop OU HS 04/14/16 Levalbuterol Tartrate [Xopenex Hfa] 15 gm IH DAILY 09/02/17 Carvedilol [Coreg -] 25 mg PO BID #60 tablet 09/06/17 Docusate Sodium [Colace -] 100 mg PO DAILY PRN #30 capsule 09/06/17 Nifedipine [Nifedipine ER] 60 mg PO DAILY 10/02/18 Abnormal Lab Results 10/20/18 10/20/18 10/20/18 23:55 23:55 23:55 Neutrophils % 39.0 L D Lymphocytes % 48.5 H D Basophils % 3.1 H D PT with INR 14.90 H INR 1.26 H Random Glucose AST CK-MB (CK-2) 4.4 H Troponin I 0.10 H Albumin Alcohol, Quantitative 252.4 H 10/20/18 23:55 Neutrophils % Lymphocytes % Basophils % PT with INR INR Random Glucose 119 H AST 76 H CK-MB (CK-2) Troponin I Albumin 3.2 L Alcohol, Quantitative ASSESSMENT AND PLAN: 1. Alcohol intoxication/Fall - Preliminary report of Head CT scan shows 6.4x5.2x2.6cm extra-axial encapsulated fluid collection - possible chronic subdural vs chronic cystic structure with reported shift. ER staff consulted Neurosurgery. No fracture reported on C-spine CT or Pelvis xray. Pending official report of head CT, will give loading dose of IV Keppra, mannitol, consult neurology and repeat head CT within 24 hours. Keep him NPO for now and do speech and swallow evaluation before feeding him. Will implement [employer] alcohol withdrawal protocol and do neurochecks. Implement seizure, fall and aspiration precautions. Treat with thiamine and folic acid and monitor electrolytes (Ca,Mg,K,P). Counseled patient about abstaining from alcohol. Will consult academic records specialist and refer to alcohol detox upon discharge. Consult psychiatry for depression. Elevated troponin is chronic, but will trend. EKG shows NSR, 1o AV block, LVH and nonspecific T wave flattening. Will get repeat EKG. 2. Hypoalbuminemia - Possibly due to combined effects of malnutrition and inflammation associated with comorbid chronic conditions. Will ensure adequate dietary protein intake and also consult sealer operator. 3. Borderline DM Will implement sliding scale insulin regimen. Provide comprehensive diabetes care with patient teaching and counseling about the importance of adherence to prescribed diabetes regimen, euglycemia, eye care and foot care. 4. Obesity Counseled on the risks associated with obesity. Will provide patient all the necessary assistance, counseling and positive reinforcement to facilitate weight loss. Consult sealer operator. 5. Hypertension - Restart suitable outpatient antihypertensive drugs when clinically appropriate. Revise regimen to ensure good BP control. Nonpharmacologic measures to control hypertension like weight loss, salt restriction and exercise discussed. 6. DVT prophylaxis - SCD for now pending clarification of intracranial collection. 7. Advance directives - Full code
--- NOTE | 2018-10-21 03:18 | HP ---
CHIEF COMPLAINT: fall PCP: Jorge HISTORY OF PRESENT ILLNESS: Mr. Cobian is an 83yo male with history of alcohol abuse, HTN, and asthma who presents after a mechanical fall. He reports 1-2 drinks of rum with dinner at home tonight and fell forward onto the stairs while climbing. He denies any head injury but cannot recall if he had LOC. He denies LUND, dizziness, nausea, vomiting, unexplained weight loss, or loss of appetite. He reports drinking wine or rum daily, 1-2 drinks, and drinks in the middle of the night and upon wakening. He also has a hx of mechanical falls 2/2 drinking. He reports recent stressors, including family members passing away in the last year, are making him depressed and anxious so he drinks. He denies any suicidal or homicidal ideations. ER course was notable for: (1) EKG (2) head CT (3) c-spine x-ray PAST MEDICAL HISTORY: ETOH abuse HTN asthma PAST SURGICAL HISTORY: R knee replacement Social History: Smoking: quit 45 yrs ago Alcohol: 1-2 drinks/day Drugs: none Lives at home with his . Family History: no hx of alcohol abuse Allergies No Known Allergies Allergy (Verified 10/02/18 09:00) HOME MEDICATIONS: Home Medications Medication Instructions Recorded Bimatoprost [Lumigan] 1 drop OU HS 04/14/16 Levalbuterol Tartrate [Xopenex Hfa] 15 gm IH DAILY 09/02/17 Carvedilol [Coreg -] 25 mg PO BID #60 tablet 09/06/17 Docusate Sodium [Colace -] 100 mg PO DAILY PRN #30 capsule 09/06/17 Nifedipine [Nifedipine ER] 60 mg PO DAILY 10/02/18 REVIEW OF SYSTEMS CONSTITUTIONAL: Absent: fever, chills, diaphoresis, generalized weakness, malaise, loss of appetite, weight change HEENT: Absent: rhinorrhea, nasal congestion, throat pain, ear pain, eye pain, visual changes CARDIOVASCULAR: Absent: chest pain, syncope, palpitations, lightheadedness, peripheral edema RESPIRATORY: Absent: cough, shortness of breath GASTROINTESTINAL: Absent: abdominal pain, abdominal distension, nausea, vomiting, diarrhea, constipation, melena, hematochezia GENITOURINARY: Absent: dysuria MUSCULOSKELETAL: Absent: myalgia, arthralgia SKIN: Absent: rash, itching, pallor HEMATOLOGIC/IMMUNOLOGIC: Absent: easy bleeding, easy bruising, lymphadenopathy, frequent infections ENDOCRINE: Absent: unexplained weight gain, unexplained weight loss, heat intolerance, cold intolerance NEUROLOGIC: Present: unsteady gait Absent: headache, focal weakness or paresthesias, dizziness, unsteady gait, seizure, mental status changes, bladder or bowel incontinence PSYCHIATRIC: Present: anxiety, depression Absent: suicidal or homicidal ideation, hallucinations. PHYSICAL EXAMINATION Vital Signs - 24 hr 10/20/18 10/21/18 23:05 00:17 Temperature 97.9 F 97.9 F Pulse Rate 98 H Pulse Rate [ 98 H Apical] Respiratory 20 20 Rate Blood Pressure 140/76 Blood Pressure 140/76 [Left] O2 Sat by Pulse 96 95 Oximetry (%) GENERAL: A/O x 3, in no acute distress, has some difficulty following commands HEAD: Normal with no signs of trauma. EYES: Pupils equal, round and reactive to light, extraocular movements intact, sclera anicteric, conjunctiva clear. No lid lag. EARS, NOSE, THROAT: Ears normal, nares patent. Moist mucous membranes. NECK: Normal range of motion, supple without lymphadenopathy, JVD, or masses. LUNGS: Breath sounds equal, clear to auscultation bilaterally. No wheezes, and no crackles. No accessory muscle use. HEART: Regular rate, irregular rhythm, normal S1 and S2 without murmur, rub or gallop. ABDOMEN: Soft, nontender, not distended, normoactive bowel sounds, no guarding, no rebound, no masses. No hepatomegaly or splenomegaly. MUSCULOSKELETAL: Normal range of motion at all joints. No bony deformities or tenderness. UPPER EXTREMITIES: warm, well-perfused. No cyanosis. No clubbing. No peripheral edema. LOWER EXTREMITIES: warm, well-perfused. No calf tenderness. No peripheral edema. NEUROLOGICAL: Cranial nerves II-XII intact. Normal speech. PSYCHIATRIC: Cooperative. Good eye contact. Appropriate mood and affect. SKIN: Warm, dry, normal turgor, no rashes or lesions noted, normal capillary refill. Laboratory Results - last 24 hr 10/20/18 10/20/18 10/20/18 23:55 23:55 23:55 WBC 4.7 RBC 4.67 Hgb 14.3 Hct 43.8 MCV 93.8 MCH 30.7 MCHC 32.7 RDW 15.3 Plt Count 231 D MPV 8.3 Absolute Neuts (auto) 1.8 Neutrophils % 39.0 L D Lymphocytes % 48.5 H D Monocytes % 6.8 Eosinophils % 2.6 Basophils % 3.1 H D Nucleated RBC % 0 PT with INR 14.90 H INR 1.26 H PTT (Actin FS) 33.8 Sodium Potassium Chloride Carbon Dioxide Anion Gap BUN Creatinine Est GFR (CKD-EPI)AfAm Est GFR (CKD-EPI)NonAf Random Glucose Calcium Magnesium Total Bilirubin AST ALT Alkaline Phosphatase Creatine Kinase 177 Creatine Kinase Index 2.4 CK-MB (CK-2) 4.4 H Troponin I 0.10 H Total Protein Albumin Alcohol, Quantitative 252.4 H 10/20/18 23:55 WBC RBC Hgb Hct MCV MCH MCHC RDW Plt Count MPV Absolute Neuts (auto) Neutrophils % Lymphocytes % Monocytes % Eosinophils % Basophils % Nucleated RBC % PT with INR INR PTT (Actin FS) Sodium 142 Potassium 3.8 Chloride 104 Carbon Dioxide 29 Anion Gap 8 BUN 11.9 Creatinine 0.8 Est GFR (CKD-EPI)AfAm 96.42 Est GFR (CKD-EPI)NonAf 83.19 Random Glucose 119 H Calcium 8.5 Magnesium 1.8 Total Bilirubin 0.5 AST 76 H ALT 56 Alkaline Phosphatase 104 Creatine Kinase Creatine Kinase Index CK-MB (CK-2) Troponin I Total Protein 7.8 Albumin 3.2 L Alcohol, Quantitative ASSESSMENT/PLAN: Pt is a 83yo male with history of alcohol abuse and falls who presents with a mechanical fall. He denies hitting his head, but he is also unsure if he lost consciousness. 1. Mechanical fall -repeat CT head b/c of midline shift; neurosurgery was consulted after 1st CT and said shift was likely chronic -repeat EKG -repeat troponin -CBC -CMP -Mg -Ptt/Pt INR -fall precaution -seizure precaution -thiamine 200mg BID -ETOH withdrawal protocol with Ativan -folate 0.4 mg Q daily -consult neuro -NPO until pass swallow test 2. depression -consider psych consult or f/u DVT prophylaxis Lovenox 40mg Q daily FEN NS 50mL/hr recheck CMP NPO Visit type - Emergency Visit Emergency Visit: Yes ED Registration Date: 10/21/18 Care time: The patient presented to the Emergency Department on the above date and was hospitalized for further evaluation of their emergent condition. - New Patient This patient is new to me today: Yes Date on this admission: 10/21/18 - Critical Care Critical Care patient: No ATTENDING PHYSICIAN STATEMENT I saw and evaluated the patient. I reviewed the resident's note and discussed the case with the resident. I agree with the resident's findings and plan as documented. SUBJECTIVE: OBJECTIVE: ASSESSMENT AND PLAN:
[2018-10-21] MEDS ORDERED: LORazepam 1 MG TABLET PO PRN (03:26)
[2018-10-21] MEDS: SODIUM CHLORIDE 1,000 ML IV SCH (04:11)
[2018-10-21] MEDS ORDERED: levETIRAcetam 500 MG/5 ML INJECTION VIAL IVPB ONE ×2 (04:17→04:25)
[2018-10-21] MEDS ORDERED: MANNITOL 25% 12.5 GM/50 ML VIAL IVPB ONE (04:20)
[2018-10-21] MEDS: FOLIC ACID 5 MG/1 ML IVPB SCH ×2 (04:22→11:16)
[2018-10-21 06:46] LABS: BASO % 3.5 % (0-2.0); EOS % 2.7 % (0-4.5); HEMATOCRIT 42.1 % (35.4-49); LYMPH % 42.8 % (8-40); MCHC 33.2 g/dl (32.0-35.9); MEAN CELL VOLUME 93.3 fl (80-96); MEAN PLT VOLUME 8.4 fl (7.5-11.1); MONO % 8.7 % (3.8-10.2); NEUT % 42.3 % (42.8-82.8); PLATELET COUNT 243 K/MM3 (134-434); RBC 4.51 M/mm3 (4.00-5.60); RDW 15.1 % (11.9-15.9)
[2018-10-21 07:04] LABS: INR 1.26 (0.83-1.09); PROTHROMBIN TIME (PATIENT) 14.9 SEC (9.7-13.0)
[2018-10-21 07:06] LABS: ACTIVATED PTT 34.8 SECONDS (25.2-36.5)
[2018-10-21 07:09] LABS: BILIRUBIN,TOTAL 0.4 mg/dL (0.2-1); BLOOD UREA NITROGEN 11.1 mg/dL (7-18); CALCIUM 8.4 mg/dL (8.5-10.1); CREATININE 0.7 mg/dL (0.55-1.3); MAGNESIUM 1.9 mg/dL (1.8-2.4); POTASSIUM 3.6 mmol/L (3.5-5.1); TOT PROT 7.4 g/dl (6.4-8.2)
[2018-10-21 08:20] LABS: URINE APPEARANCE CLEAR; URINE BILIRUBIN NEGATIVE (NEGATIVE); URINE COLOR YELLOW; URINE GLUCOSE (UA) NEGATIVE (NEGATIVE); URINE KETONE NEGATIVE (NEGATIVE); URINE LEUK ESTERASE NEGATIVE (NEGATIVE); URINE NITRITE NEGATIVE (NEGATIVE); URINE PROTEIN NEGATIVE (NEGATIVE); URINE UROBILINOGEN 0.2 mg/dL (0.2-1.0)
--- NOTE | 2018-10-21 09:21 | PN ---
Progress Note (short form) - Note Progress Note: NEUROSURGERY CONSULT DICTATED Pt examined History obtained CT head reviewed h/o daily alcohol use, HTN, and asthma s/p mechanical fall. He reports 1-2 drinks of rum with dinner at home last night and fell forward onto the stairs. He denies any head impact. ? LOC. He denies LUND, dizziness, nausea, vomiting. Had dehydration and loss of appetite and was seen at [facility] 2 weeks ago. He reports drinking wine or rum daily. Denies other significant falls in the past year. Had head CT one year ago at [facility]. PE: AF, VSS HEENT- NC/AT; Neck- supple; Cor- RR; Lungs- CTA B; Abd- benign; Ext- no sign of DVT A/A/Ox3 CN- intact; Motor- 4+-5 without drift; Sensation- intact LT; DTR- hyporeflexic throughout, toes equivocal; Cerebellar- mild tremor INR 1.26, ptt 34.8, troponin 0.1/0.11, EtOH 252.4; BUN/Cr 11/0.[address]- R fronto-parietal 2.3 x 2.5 x 6 cm chronic SDH with cortical mass effect and mild R to L 3 mm shift; not present on CT in 08/[address]- multilevel DDD C4-5 and C5-6 > C6-7; calcified C4-5 > R C5-6 paracentral disc protrusion with moderate C4-5 and mild to moderate C5-6 stenosis, facet hypertrophy and B foramenal stenosis at C4-5, C5-6 > C6-7 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
[2018-10-21] MEDS ORDERED: PHYTONADIONE 10 MG/1 ML AMP SQ ONE (09:37)
[2018-10-21] MEDS ORDERED: THIAMINE HCL 200 MG/2 ML VIAL IVPB SCH (10:00)
[2018-10-21] MEDS ORDERED: ENOXAPARIN NA (PORCINE) 40 MG/0.4 ML DISP.SYRIN SQ SCH (10:00)
[2018-10-21] MEDS ORDERED: THIAMINE HCL 200 MG/2 ML VIAL ONE (10:35)
[2018-10-21] MEDS ORDERED: PHYTONADIONE 10 MG/1 ML AMP ONE (10:36)
[2018-10-21] MEDS ORDERED: ENOXAPARIN NA (PORCINE) 40 MG/0.4 ML DISP.SYRIN SQ ONE (10:36)
[2018-10-21] MEDS: THIAMINE HCL 200 MG/2 ML VIAL IVPB SCH ×2 (10:50→22:52)
--- NOTE | 2018-10-21 10:53 | CONS ---
DATE OF CONSULTATION: 10/21/2018 REQUESTING PHYSICIAN: Lois Rodríguez MD OPERATIONS PROJECT MANAGER: Tyron Mandel MD, Neurosurgery CHIEF COMPLAINT: Status post fall with finding of right frontoparietal subdural hematoma. HISTORY OF PRESENT ILLNESS: The patient is an 83-year-old, right-handed male with history of hypertension, obesity, chronic alcohol use, and asthma, who had fallen yesterday at home after drinking a couple drinks of rum at dinner. He was walking up stairs, when he fell forward. He denies any significant head impact even though he was not sure if the lost consciousness. Presently, he has no headache, dizziness, nausea, vomiting, or witnessed seizure activity. He did experience dehydration after visiting his grandson in [place] 2 weeks ago after he came back and experienced loss of appetite and fatigue. He was seen at [facility] where he underwent scanning, but he does not know the result of the evaluation. He continues to drink rum daily. He denies significant fall in the past year. He had CT scan done at [facility] just over 1 year ago in August. PAST MEDICAL HISTORY: Significant for hypertension, daily alcohol use, asthma, borderline hyperglycemia. CURRENT MEDICATIONS: Include Lumigan, Xopenex, Coreg, Colace, and nifedipine. ALLERGIES: There is no known drug allergy. FAMILY HISTORY: Noncontributory. SOCIAL HISTORY: He does not smoke, but drinks daily. He lives at home with his . He is retired. He has 4 children. REVIEW OF SYSTEMS: Otherwise negative for major constitutional, head and neck, cardiovascular, pulmonary, gastrointestinal, genitourinary, endocrinological, neurological, and psychological problems except for the above. PHYSICAL EXAMINATION: General: He is awake and alert, oriented x3. Vital Signs: Temperature is 97.6. Blood pressure is 142/85 with pulse rate 84. O2 saturation is 95% on room air. HEENT: Examination shows him to be normocephalic, atraumatic, anicteric. Neck: Supple. Coronary: Examination demonstrated a regular rhythm. Lungs: Clear bilaterally. Abdomen: Benign, but obese. Extremities: Examination showed no signs of DVT. He has right knee scar which is healed. Neurologic: Cranial nerve examination is intact 2-12. Motor examination shows 4+ to 5/5 without a drift. Sensory examination is intact to light touch. Deep tendon reflexes are hyporeflexic throughout. There is no pathological long tract sign. Cerebellar examination demonstrated a mild resting tremor. He has an otherwise intact ojhbgh-de-rcab examination. LABORATORY: Examination shows sodium to be 141, potassium to be 3.6. BUN is 11.1 and creatinine 0.7. LFTs are generally benign except for mildly elevated AST of 65. Troponin 0.1 and then 0.11. Albumin is 3.0. INR is 1.26, and PTT is 34.8. Alcohol level was 252.4. Urinalysis was negative. White blood cell count is 4, and hemoglobin is at 14; platelet count is 243,000. CT scan of the head demonstrated a right frontoparietal convexity, 2 x 3 x 2.5 x 6.5 cm chronic subdural hematoma with mild cortical mass effect in lateral ventricle. There is a 3-mm, mild, [id number]-[id number] shift. There is cavum septum pellucidum and cavum vergae. There is no acute fracture. The subdural fluid collection was not noted on a CT scan from August of 2017. The subdural collection appears to be slightly septated. IMPRESSION: 1. 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 2. Chronic alcohol use. 3. Hypertension. 4. Obesity. 5. Asthma. RECOMMENDATIONS: The patient presents with a mechanical fall after drinking. He had felt dehydrated recently, about 2 weeks ago, and reportedly had some evaluation done at [facility], but the result of which is not available to me. Presently, he is neurologically nonfocal. He does have a moderate-size right frontoparietal convexity, chronic subdural collection with cortical mass effect and mild midline shift. Given the size of the collection, consideration could be given to draining the subdural fluid collection. One can also choose to continue to observe this collection. Given the reality that he did not have a collection from just over 1 year ago, it may be more reasonable to evacuate the subdural fluid collection. I would recommend repeating a head CT scan with and without contrast to assess any subdural enhancing membrane. He has no fevers or chills or any signs of infection; so, this is much less likely an infectious process. Anticoagulants and NSAIDs should be held at this time until a decision is made whether to evacuate his subdural fluid collection. The pros and cons of treatment approaches were discussed with the patient at bedside. The risks of surgery would include, but are not limited to, bleeding, infection, stroke, seizure, fluid re-collection, re-hemorrhage, and other risks of general anesthesia. The patient will likely be maintained on Keppra if surgical evacuation of subdural fluid collection is carried out for seizure prophylaxis ashley-operatively. All questions were answered at bedside. Willian HERRERA/[id number] MTDD
--- NOTE | 2018-10-21 14:55 | PN ---
Progress Note, Physician Chief Complaint: fall History of Present Illness: seen and examined, no acute events overnight. Patient wants to go home, no cp, sob, palpitations, no other complaints - Current Medication List Current Medications: Active Medications Enoxaparin Sodium (Lovenox -) 40 mg SQ DAILY [facility] Last Admin: 10/21/18 10:50 Dose: 40 mg Folic Acid (Folic Acid Injection -) 0.4 mg IVPB DAILY [facility] Last Admin: 10/21/18 11:16 Dose: 0.4 mg Sodium Chloride (Normal Saline -) 1,000 mls @ 50 mls/hr IV ASDIR [facility] Last Admin: 10/21/18 04:11 Dose: 50 mls/hr Lorazepam (Ativan -) 0.5 mg PO Q6H [facility] Stop: 10/23/18 23:01 Lorazepam (Ativan -) 0.5 mg PO Q4H PRN PRN Reason: Symptoms of Withdrawal Stop: 10/24/18 00:00 Lorazepam (Ativan -) 0.5 mg PO ONCE ONE Stop: 10/24/18 05:01 Lorazepam (Ativan -) 1 mg PO 0500,1100,1700,2300 [facility] Stop: 10/22/18 23:01 Lorazepam (Ativan -) 1 mg PO Q4H PRN PRN Reason: Symptoms of Withdrawal Stop: 10/23/18 00:00 Thiamine HCl (Vitamin B1 Injection -) 200 mg IVPB BID [facility] Last Admin: 10/21/18 10:50 Dose: 200 mg - Objective Vital Signs: Vital Signs Temperature 97.6 F 10/21/18 05:08 Pulse Rate 84 10/21/18 07:54 Respiratory Rate 17 10/21/18 07:54 Blood Pressure 142/85 10/21/18 07:54 O2 Sat by Pulse Oximetry (%) 95 10/21/18 07:54 Constitutional: Yes: Well Nourished, No Distress, Calm Labs: CBC, BMP 10/21/18 05:45 10/21/18 05:45 INR, PTT INR 1.26 (0.83-1.09) H 10/21/18 05:45 Assessment/Plan Assessment/Plan: Falls, alcohol intoxication: 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 and 3mm shift As per neurosurgery: Given mass effect and mild shift, could benefit from drainage of SDH (since collection was not present on scan) Risks and benefits of surgical drainage vs observation discussed Patient and family want to think about it Follow up repeat CT head with and without contrast Jorje LOPES recs on CIWA protocol, stable thiamine and folic acid seizure/fall/asp precautions counseling, cardiovascular invasive specialist consulted psych consulted malnutrition, ensure adequate hydration and nutrition, dietary eval PreDM, monitor and counseling HTN, not on meds, monitor Obesity, counseling COPD, stable continue with current care DVT ppx wit SCDs All questions answered
[2018-10-21] MEDS ORDERED: DOCUSATE SODIUM 100 MG CAPSULE (FP) PO PRN (15:06)
[2018-10-21] MEDS ORDERED: ALBUTEROL SO4 0.083% IH SOL 2.5 MG/3 ML VIAL.NEB. NEB PRN (15:11)
--- NOTE | 2018-10-21 15:18 | EKG ---
Test Reason : Blood Pressure : / mmHG Vent. Rate : 095 BPM Atrial Rate : 095 BPM P-R Int : 218 ms QRS Dur : 090 ms QT Int : 370 ms P-R-T Axes : 058 -24 078 degrees QTc Int : 464 ms SINUS RHYTHM WITH SINUS ARRHYTHMIA WITH 1ST DEGREE A-V BLOCK WITH OCCASIONAL PREMATURE VENTRICULAR COMPLEXES MODERATE VOLTAGE CRITERIA FOR LVH, MAY BE NORMAL VARIANT CANNOT RULE OUT SEPTAL INFARCT , AGE UNDETERMINED INFERIOR INFARCT , AGE UNDETERMINED ABNORMAL ECG WHEN COMPARED WITH ECG OF 02-OCT-2018 10:06, PREMATURE VENTRICULAR COMPLEXES ARE NOW PRESENT PREMATURE ATRIAL COMPLEXES ARE NO LONGER PRESENT MINIMAL CRITERIA FOR SEPTAL INFARCT ARE NOW PRESENT INFERIOR INFARCT IS NOW PRESENT Confirmed by JULIO ROSA MD ([id number]) on 10/21/2018 3:18:15 PM Referred By: Confirmed By:JULIO ROSA MD
--- NOTE | 2018-10-21 15:20 | EKG ---
Test Reason : Blood Pressure : / mmHG Vent. Rate : 086 BPM Atrial Rate : 086 BPM P-R Int : 210 ms QRS Dur : 092 ms QT Int : 390 ms P-R-T Axes : 072 -20 057 degrees QTc Int : 466 ms SINUS RHYTHM WITH 1ST DEGREE A-V BLOCK WITH FREQUENT PREMATURE VENTRICULAR COMPLEXES MODERATE VOLTAGE CRITERIA FOR LVH, MAY BE NORMAL VARIANT INFERIOR INFARCT (CITED ON OR BEFORE 20-OCT-2018) ABNORMAL ECG WHEN COMPARED WITH ECG OF 20-OCT-2018 23:32, NO SIGNIFICANT CHANGE WAS FOUND Confirmed by JULIO ROSA MD ([id number]) on 10/21/2018 3:19:33 PM Referred By: Confirmed By:JULIO ROSA MD
--- NOTE | 2018-10-21 16:00 | PN ---
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
[2018-10-21 17:27] VITALS: BMI 34.1
[2018-10-21] MEDS ORDERED: METOPROLOL TARTRATE 5 MG/5 ML VIAL IVPUSH ONE (20:20)
[2018-10-21] MEDS ORDERED: PATIENT'S OWN MEDICATION (NON-FORMULARY) (Bimatoprost [Lumigan] 1 DROP) OU SCH (22:00)
[2018-10-21] MEDS ORDERED: PT OWN MED DRAWER 7, Y5N ONE (22:18)
[2018-10-21] MEDS: levETIRAcetam 500 MG TABLET (FP) PO SCH (22:52)
[2018-10-21] MEDS: LATANOPROST 0.005% OPHTH SOLN 2.5ML BOTTLE OU SCH (22:53)
[2018-10-22] MEDS ORDERED: D5-1/2NS+20 MEQ KCL - 20 MEQ/1,000 ML INFUS.BAG IV SCH (01:00)
[2018-10-22] MEDS: LORazepam 1 MG TABLET PO SCH ×4 (05:46→23:28)
[2018-10-22] MEDS: SODIUM CHLORIDE 1,000 ML IV SCH (05:48)
[2018-10-22 06:48] LABS: BASO % 0.8 % (0-2.0); EOS % 5.7 % (0-4.5); HEMATOCRIT 39.2 % (35.4-49); HEMOGLOBIN 13.1 GM/dL (11.7-16.9); LYMPH % 38.4 % (8-40); MCHC 33.4 g/dl (32.0-35.9); MEAN CELL VOLUME 92.8 fl (80-96); MEAN PLT VOLUME 8.4 fl (7.5-11.1); MONO % 7.1 % (3.8-10.2); PLATELET COUNT 238 K/MM3 (134-434); RBC 4.22 M/mm3 (4.00-5.60); RDW 15.3 % (11.9-15.9); WHITE BLOOD COUNT 4.7 K/mm3 (4.0-10.0)
[2018-10-22 07:17] LABS: BLOOD UREA NITROGEN 6.7 mg/dL (7-18); CREATININE 0.8 mg/dL (0.55-1.3); POTASSIUM 3.5 mmol/L (3.5-5.1)
--- NOTE | 2018-10-22 09:39 | PN ---
Progress Note, Physician Chief Complaint: offers no complaints, awake alert, denies pain or headaches. no chest pain. denies any palpitations. History of Present Illness: sounds like he is in afib. monitor shows afib 90s will order EKG patient scheduled for surgery for SDH. will consult cardiology, re-start home coreq Mr. Cobian is an 83 year old male with history of alcohol abuse, HTN, atrial fibrilation (not on a/c), asthma. Patient presented to the ED after a after a mechanical fall after consuming alcohol. Patient reports that he fell forward onto the stairs while climbing. He reports drinking wine or rum daily, 1-2 drinks, and drinks in the middle of the night and upon wakening. Head CT 10/22/18: right extra axial hypodense non hemorrhagic encapsulted collection is seen with internal enhancing septations, enhancing membrane along the superior convexity of the righ frontal lobe with cortical effacement. - Current Medication List Current Medications: Active Medications Albuterol Sulfate (Ventolin 0.083% Nebulizer Soln -) 1 amp NEB Q6H PRN PRN Reason: SHORT OF BREATH/WHEEZING Docusate Sodium (Colace -) 100 mg PO DAILY PRN PRN Reason: CONSTIPATION Folic Acid (Folic Acid Injection -) 0.4 mg IVPB DAILY [facility] Last Admin: 10/21/18 11:16 Dose: 0.4 mg Sodium Chloride (Normal Saline -) 1,000 mls @ 50 mls/hr IV ASDIR [facility] Last Admin: 10/22/18 05:48 Dose: Not Given Potassium Chloride/Dextrose/Sod Cl (D5-1/2ns+20 Meq Kcl -) 20 meq in 1,000 mls @ 75 mls/hr IV ASDIR [facility] Last Admin: 10/22/18 01:05 Dose: 75 mls/hr Latanoprost (Xalatan 0.005% Eye Drops -) 1 drop OU HS [facility] Last Admin: 10/21/18 22:53 Dose: 1 drop Levetiracetam (Keppra -) 500 mg PO BID [facility] Last Admin: 10/21/18 22:52 Dose: 500 mg Lorazepam (Ativan -) 0.5 mg PO Q6H [facility] Stop: 10/23/18 23:01 Lorazepam (Ativan -) 0.5 mg PO Q4H PRN PRN Reason: Symptoms of Withdrawal Stop: 10/24/18 00:00 Lorazepam (Ativan -) 0.5 mg PO ONCE ONE Stop: 10/24/18 05:01 Lorazepam (Ativan -) 1 mg PO 0500,1100,1700,2300 [facility] Stop: 10/22/18 23:01 Last Admin: 10/22/18 05:46 Dose: 1 mg Lorazepam (Ativan -) 1 mg PO Q4H PRN PRN Reason: Symptoms of Withdrawal Stop: 10/23/18 00:00 Last Admin: 10/21/18 17:52 Dose: 1 mg Thiamine HCl (Vitamin B1 Injection -) 200 mg IVPB BID [facility] Last Admin: 10/21/18 22:52 Dose: 200 mg - Objective Vital Signs: Vital Signs Temperature 98.2 F 10/22/18 06:00 Pulse Rate 90 10/22/18 06:00 Respiratory Rate 13 10/22/18 06:00 Blood Pressure 158/79 10/22/18 06:00 O2 Sat by Pulse Oximetry (%) 100 10/21/18 21:00 Constitutional: Yes: Well Nourished, No Distress, Calm Eyes: Yes: WNL HENT: Yes: WNL, Atraumatic Neck: Yes: WNL Cardiovascular: Yes: WNL, Pulse Irregular Respiratory: Yes: Regular, CTA Bilaterally Gastrointestinal: Yes: Normal Bowel Sounds ...Rectal Exam: Yes: Deferred Edema: LLE: Trace, RLE: Trace Integumentary: Yes: WNL Neurological: Yes: Alert, Oriented Psychiatric: Yes: WNL, Alert, Oriented Labs: CBC, BMP 10/22/18 05:40 10/22/18 05:40 INR, PTT INR 1.26 (0.83-1.09) H 10/21/18 05:45 Problem List - Problems (1) Abnormal head CT Assessment/Plan: 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 Patient for surgical interventin today On Keppra 500mg BID Monitor mental status ICU post op Code(s): R93.0 - ABNORMAL FINDINGS ON DX IMAGING OF SKULL AND HEAD, NEC (2) Atrial fibrillation Assessment/Plan: rate controlled on coreq Patient is not on any a/c at home Code(s): I48.91 - UNSPECIFIED ATRIAL FIBRILLATION (3) ETOH abuse Assessment/Plan: on CIWA protocol. continue thiamine and folic acid Maintain on seizure precautions No signs of acute withdrawal on exam Addiction medication consulted Code(s): F10.10 - ALCOHOL ABUSE, UNCOMPLICATED (4) Elevated troponin level Assessment/Plan: no chest pain, cleared for surgical procedure by cardiology. Code(s): R74.8 - ABNORMAL LEVELS OF OTHER SERUM ENZYMES (5) Frequent falls Assessment/Plan: physical therapy on CIWA protocol Code(s): R29.6 - REPEATED FALLS (6) Essential hypertension Assessment/Plan: BP controlled patient on coreq BID Code(s): I10 - ESSENTIAL (PRIMARY) HYPERTENSION (7) Prophylactic measure Assessment/Plan: fen NPO per neurosurgery monitor electrolytes prophy not on a/c 2/2 to SDH Code(s): Z29.9 - ENCOUNTER FOR PROPHYLACTIC MEASURES, UNSPECIFIED Visit type - Emergency Visit Emergency Visit: Yes ED Registration Date: 10/21/18 Care time: The patient presented to the Emergency Department on the above date and was hospitalized for further evaluation of their emergent condition. - New Patient This patient is new to me today: Yes Date on this admission: 10/22/18 - Critical Care Critical Care patient: Yes Total Critical Care Time (in minutes): 45 Critical Care Statement: The care of this patient involved high complexity decision making to prevent further life threatening deterioration of the patient 's condition and/or to evaluate & treat vital organ system(s) failure or risk of failure.
[2018-10-22] MEDS: CARVEDILOL 25 MG TABLET (FP) PO SCH ×2 (10:27→22:33)
[2018-10-22] MEDS: THIAMINE HCL 200 MG/2 ML VIAL IVPB SCH (10:29)
[2018-10-22] MEDS: levETIRAcetam 500 MG TABLET (FP) PO SCH ×2 (10:33→22:33)
[2018-10-22] MEDS: FOLIC ACID 5 MG/1 ML IVPB SCH (11:12)
[2018-10-22] MEDS ORDERED: THROMBIN (BOVINE) 5,000 UNIT VIAL TP ONE (11:25)
[2018-10-22] MEDS ORDERED: BACITRACIN 15 GM TUBE TOPICAL OINTMENT ONE (11:25)
[2018-10-22] MEDS ORDERED: LIDOCAINE 1%-EPI 1:100,000 30 ML MDV IJ ONE (11:25)
--- NOTE | 2018-10-22 12:37 | EKG ---
Test Reason : Blood Pressure : / mmHG Vent. Rate : 102 BPM Atrial Rate : 102 BPM P-R Int : 202 ms QRS Dur : 090 ms QT Int : 372 ms P-R-T Axes : 038 -15 087 degrees QTc Int : 484 ms SINUS TACHYCARDIA WITH OCCASIONAL PREMATURE VENTRICULAR COMPLEXES MINIMAL VOLTAGE CRITERIA FOR LVH, MAY BE NORMAL VARIANT ABNORMAL ECG WHEN COMPARED WITH ECG OF 21-OCT-2018 04:44, CRITERIA FOR INFERIOR INFARCT ARE NO LONGER PRESENT Confirmed by SAMMY ARRINGTON MD ([id number]) on 10/22/2018 12:37:27 PM Referred By: HOA LUI Confirmed By:SAMMY ARRINGTON MD
--- NOTE | 2018-10-22 13:00 | PN ---
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
--- NOTE | 2018-10-22 14:15 | CON.CARD ---
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 No chest pain, sob, or palpitations. No pnd, orthopnea, or edema. May go for surgical drainage - History Source History Provided By: Patient, Medical Record - Past Medical History Cardio/Vascular: Yes: AFIB, CAD - Alcohol/Substance Use Hx Alcohol Use: Yes (daily 4 beers "sometimes more") - Smoking History Smoking history: Never smoked Have you smoked in the past 12 months: No If you are a former smoker, when did you quit?: 1972 Home Medications - Allergies Allergies/Adverse Reactions: Allergies Allergy/AdvReac Type Severity Reaction Status Date / Time No Known Allergies Allergy Verified 10/02/18 09:00 - Home Medications Home Medications: Ambulatory Orders Bimatoprost [Lumigan] 1 drop OU HS 04/14/16 Levalbuterol Tartrate [Xopenex Hfa] 15 gm IH DAILY 09/02/17 Carvedilol [Coreg -] 25 mg PO BID #60 tablet 09/06/17 Docusate Sodium [Colace -] 100 mg PO DAILY PRN #30 capsule 09/06/17 Nifedipine [Nifedipine ER] 60 mg PO DAILY 10/02/18 Family Disease History - Family Disease History Family Disease History: Other: Brother (ALCOHOL,) Vital Signs: Vital Signs Temperature 98.2 F 10/22/18 13:20 Pulse Rate 90 10/22/18 13:20 Respiratory Rate 17 10/22/18 13:20 Blood Pressure 150/89 10/22/18 13:20 O2 Sat by Pulse Oximetry (%) 100 10/21/18 21:00 Constitutional: Yes: No Distress Respiratory: Yes: CTA Bilaterally Gastrointestinal: Yes: Soft Cardiovascular: Yes: Pulse Irregular JVD: No Carotid Bruit: No Heart Sounds: Yes: S1, S2 Edema: No - Other Data Labs, Other Data: CBC, BMP 10/22/18 05:40 10/22/18 05:40 INR, PTT INR 1.26 (0.83-1.09) H 10/21/18 05:45 Imaging - Results EKG: Image Reviewed Problem List - Problems (1) Abnormal head CT Code(s): R93.0 - ABNORMAL FINDINGS ON DX IMAGING OF SKULL AND HEAD, NEC Assessment/Plan 83 year old male with a pmhx of htn, asthma, glaucoma, pvd, afib, and etoh use admitted with fall and found to have 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 No chest pain, sob, or palpitations. No pnd, orthopnea, or edema. May go for surgical drainage 1) Afib Currently in sinus rhythm with pvc's and pac's No afib on tele HR 80s Restarted on carvedilol No cardiac complaints. No signs of chf. Was not taking AC at home. No cardiac contraindication to drainage of SDH. No further cardiac testing at this time. AC on hold. 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 Will sign off
[2018-10-22] MEDS ORDERED: MIDAZOLAM HCL 2 MG/2 ML SINGLE DOSE VIAL ONE (15:43)
[2018-10-22] MEDS ORDERED: PROPOFOL 20 ML ONE ×5 (15:43)
[2018-10-22] MEDS ORDERED: ROCURONIUM BROMIDE 50 MG/5 ML SYRINGE ONE ×2 (15:44→17:37)
[2018-10-22] MEDS ORDERED: PHENYLEPHRINE HCL 10 MG/1 ML SINGLE DOSE VIAL ONE ×2 (15:44→16:26)
[2018-10-22] MEDS ORDERED: fentaNYL CITRATE 250 MCG/5 ML VIAL ONE (15:51)
--- NOTE | 2018-10-22 15:56 | CONSULT ---
Consultation: REQUESTING PROVIDER: Dr. Mandel CONSULT REQUEST: We have been asked to medically evaluate this patient for Subdural hematoma HISTORY OF PRESENT ILLNESS: 83 year old male with a history of atrial fibrillation not on anticoagulation, hypertension, asthma, glaucoma, frequent falls and alcohol abuse presented to the hospital s/p fall. Patient reports to me that he felt uneasy on his feet and fell forward mechanically and did not hit his head. He reports that he has been falling more recently and had a fall several weeks ago in which he could have hit his head. States that he drinks 1-2 drinks a day (sometimes vodka/ sometimes beer/wine). Family at bedside reported that patient has withdrawn from alcohol in the past but has not had seizures. Reports no current distress, nausea, vomiting, diarrhea, headache, chest pain, fevers, chills. No bowel or bladder incontinence. Patient had a head CT scan done which showed a chronic, encapsulated subdural hematoma on the R side of the brain with 3mm shift. Patient is going for surgery with Dr. Mandel today for drainage. Will be monitored in ICU afterwards. Alcohol: 1-2 dirnks /day Drugs: denies Tobacco Occupation: former [employer], [place] Family Hx: reports hx of strokes, heart disease, and DM in the family. REVIEW OF SYSTEMS: CONSTITUTIONAL: Absent: fever, chills, diaphoresis, generalized weakness, malaise, loss of appetite, weight change HEENT: Absent: rhinorrhea, nasal congestion, throat pain, throat swelling, difficulty swallowing, mouth swelling, ear pain, eye pain, visual changes CARDIOVASCULAR: Absent: chest pain, syncope, palpitations, irregular heart rate, lightheadedness , peripheral edema RESPIRATORY: Absent: cough, shortness of breath, dyspnea with exertion, orthopnea, wheezing, stridor, hemoptysis GASTROINTESTINAL: Absent: abdominal pain, abdominal distension, nausea, vomiting, diarrhea, constipation, melena, hematochezia GENITOURINARY: Absent: dysuria, frequency, urgency, hesitancy, hematuria, flank pain, genital pain MUSCULOSKELETAL: Absent: myalgia, arthralgia, joint swelling, back pain, neck pain SKIN: Absent: rash, itching, pallor HEMATOLOGIC/IMMUNOLOGIC: Absent: easy bleeding, easy bruising, lymphadenopathy, frequent infections ENDOCRINE: Absent: unexplained weight gain, unexplained weight loss, heat intolerance, cold intolerance NEUROLOGIC: unsteady gait Absent: headache, focal weakness or paresthesias, dizziness,seizure, mental status changes, bladder or bowel incontinence PSYCHIATRIC: Absent: anxiety, depression, suicidal or homicidal ideation, hallucinations. PHYSICAL EXAMINATION Vital Signs - 24 hr 10/21/18 10/21/18 10/21/18 16:14 17:16 17:18 Temperature 98 F Pulse Rate 124 H Pulse Rate [ 92 H Apical] Respiratory 17 20 Rate Blood Pressure 163/100 Blood Pressure 158/84 [Left] O2 Sat by Pulse 99 Oximetry (%) 10/21/18 10/21/18 10/21/18 17:22 17:26 20:33 Temperature 98 F Pulse Rate 112 H 111 H Pulse Rate [ Apical] Respiratory 22 H Rate Blood Pressure 160/100 170/94 Blood Pressure [Left] O2 Sat by Pulse 100 Oximetry (%) 10/21/18 10/22/18 10/22/18 21:00 01:29 02:47 Temperature 98.5 F 98.2 F Pulse Rate 100 H 92 H Pulse Rate [ Apical] Respiratory 19 15 Rate Blood Pressure 151/92 174/86 H Blood Pressure [Left] O2 Sat by Pulse 100 Oximetry (%) 10/22/18 10/22/18 10/22/18 04:00 06:00 08:00 Temperature 98.2 F 98.2 F Pulse Rate 97 H 90 82 Pulse Rate [ Apical] Respiratory 17 13 18 Rate Blood Pressure 141/73 158/79 145/93 Blood Pressure [Left] O2 Sat by Pulse Oximetry (%) 10/22/18 10/22/18 10/22/18 10:00 11:59 13:20 Temperature 98 F 98.1 F 98.2 F Pulse Rate 98 H 97 H 90 Pulse Rate [ Apical] Respiratory 16 18 17 Rate Blood Pressure 170/109 H 140/101 H 150/89 Blood Pressure [Left] O2 Sat by Pulse Oximetry (%) GENERAL: A&Ox3, no acute distress EYES: PERRLA, EOMI ENT: Moist mucus membranes NECK: No JVD LUNGS: CTA, no wheezes HEART: irregularly irregular, no murmurs ABDOMEN: Soft, nontender, BS present MUSCULOSKELETAL: No CVA Tenderness EXTREMITIES: 2+ pulses, no edema. NEUROLOGICAL: Cranial nerves II-XII intact. No motor or sensory deficits. No dysmetria. Gait not observed. Laboratory Results - last 24 hr 10/22/18 10/22/18 10/22/18 05:40 05:40 05:55 WBC 4.7 RBC 4.22 Hgb 13.1 Hct 39.2 MCV 92.8 MCH 31.0 MCHC 33.4 RDW 15.3 Plt Count 238 MPV 8.4 Absolute Neuts (auto) 2.2 Neutrophils % 48.0 Lymphocytes % 38.4 Monocytes % 7.1 Eosinophils % 5.7 H D Basophils % 0.8 Nucleated RBC % 0 Sodium 141 Potassium 3.5 Chloride 105 Carbon Dioxide 29 Anion Gap 7 L BUN 6.7 L Creatinine 0.8 Est GFR (CKD-EPI)AfAm 96.42 Est GFR (CKD-EPI)NonAf 83.19 POC Glucometer 134 Random Glucose 145 H Calcium 8.0 L Active Medications Generic Name Dose Route Start Last Admin Trade Name Freq PRN Reason Stop Dose Admin Albuterol Sulfate 1 amp 10/21/18 15:11 Ventolin 0.083% Nebulizer Soln - NEB Q6H PRN SHORT OF BREATH/WHEEZING Carvedilol 25 mg 10/22/18 10:00 10/22/18 10:27 Coreg - PO 25 mg BID PEREZ Administration Docusate Sodium 100 mg 10/21/18 15:06 Colace - PO DAILY PRN CONSTIPATION Sodium Chloride 1,000 mls @ 50 mls/hr 10/21/18 03:30 10/22/18 05:48 Normal Saline - IV Not Given ASDIR PEREZ Potassium Chloride/Dextrose/Sod Cl 20 meq in 1,000 mls @ 75 mls/hr 10/22/18 01 :00 10/22/18 01:05 D5-1/2ns+20 Meq Kcl - IV 75 mls/hr ASDIR PEREZ Administration Latanoprost 1 drop 10/21/18 22:00 10/21/18 22:53 Xalatan 0.005% Eye Drops - OU 1 drop HS PEREZ Administration Levetiracetam 500 mg 10/21/18 22:00 10/22/18 10:33 Keppra - PO 500 mg BID PEREZ Administration Lorazepam 0.5 mg 10/23/18 05:00 Ativan - PO 10/23/18 23:01 Q6H PEREZ Lorazepam 0.5 mg 10/23/18 00:00 Ativan - PO 10/24/18 00:00 Q4H PRN Symptoms of Withdrawal Lorazepam 0.5 mg 10/24/18 05:00 Ativan - PO 10/24/18 05:01 ONCE ONE Lorazepam 1 mg 10/22/18 05:00 10/22/18 10:28 Ativan - PO 10/22/18 23:01 1 mg 0500,1100,1700,2300 PEREZ Administration Lorazepam 1 mg 10/21/18 03:26 10/21/18 17:52 Ativan - PO 10/23/18 00:00 1 mg Q4H PRN Administration Symptoms of Withdrawal Thiamine HCl 200 mg 10/21/18 10:00 10/22/18 10:29 Vitamin B1 Injection - IVPB 200 mg BID PEREZ Administration ASSESSMENT/PLAN: 83 year old male with a history of atrial fibrillation not on anticoagulation, hypertension, asthma, glaucoma, frequent falls and alcohol abuse presented to the hospital s/p fall and admitted for the treatment of chronic subdural hematoma with midline shift. #Chronic Subdural hematoma #Atrial fibrillation #Hypertension #Asthma #Glaucoma #Alcohol abuse Neurological -chronic R sided hematoma with 3mm midline shift on head CT -going to surgery for drainage today -will follow in OR -monitor BP -serial neurologic exams -will follow neurosurgical recommendations -will likely need f/u CT in 24 hours to assess for reaccumulation -hydrate patient to assist with re-expansion of brain -keep head of bed flat -ativan withdrawal protocol for alcohol abuse -thiamine/folate -on keppra, continue Cardiovascular -atrial fibrillation, rate controlled -not on anticoagulation, will d/w neurosurg and cardiology due to future risk of stroke -continue carvedilol 25 BID -monitor BP -cards input appreciated Pulmonary -asthma, albuterol as needed Gastrointestinal -colace for constipation Renal -no acute issues FEN -D5 - 1/2 NS with KCL -NPO until after surgery, then follow reccs -replete lytes as necessary in AM Prophylaxis -SCDS Disposition -ICU monitoring, anticipate downgrade in 1-2 days Visit type - Emergency Visit Emergency Visit: No - New Patient This patient is new to me today: No - Critical Care Critical Care patient: Yes Total Critical Care Time (in minutes): 40 Critical Care Statement: The care of this patient involved high complexity decision making to prevent further life threatening deterioration of the patient 's condition and/or to evaluate & treat vital organ system(s) failure or risk of failure. ATTENDING PHYSICIAN STATEMENT I saw and evaluated the patient. I reviewed the resident's note and discussed the case with the resident. I agree with the resident's findings and plan as documented. SUBJECTIVE: OBJECTIVE: ASSESSMENT AND PLAN:
[2018-10-22] MEDS ORDERED: LIDOCAINE 1%/EPI 1:100000 (20 ML MULTI DOSE VIAL) INF ONE ×2 (16:30→17:00)
[2018-10-22] MEDS ORDERED: ceFAZolin 2 GRAM PREMIX BAG IVPB ONE (16:30)
[2018-10-22] MEDS ORDERED: BENZOIN TINCTURE SWABSTICK TP ONE (16:34)
[2018-10-22] MEDS ORDERED: ceFAZolin SODIUM 1 GM VIAL ONE (16:43)
[2018-10-22] MEDS ORDERED: LIDOCAINE HCL/PF 2% SDV 5ML VIAL ONE (16:43)
[2018-10-22] MEDS ORDERED: DEXAMETHASONE SOD PHOSPHATE 4 MG/1 ML VIAL ONE (17:03)
[2018-10-22] MEDS ORDERED: METOPROLOL TARTRATE 5 MG/5 ML VIAL ONE (17:14)
[2018-10-22] MEDS ORDERED: NEOSTIGMINE METHYLSULFATE 0.5 MG/ML - 10 ML MDV ONE (17:52)
[2018-10-22] MEDS ORDERED: GLYCOPYRROLATE 0.2 MG/1 ML VIAL ONE ×2 (18:30→18:39)
--- NOTE | 2018-10-22 18:35 | OP ---
Operative Note - Note: Operative Date: 10/22/18 Pre-Operative Diagnosis: R parietal SDH with mass effect and shift Operation: R parietal craniotomy for evacuation of SDH, subdural drain placement , excision of subdural membrane, microdissection Findings: acute on chronic SDH with membrane, mass effect on cortex Implants: [place] cranial titanium plating system Post-Operative Diagnosis: Same as Pre-op Surgeon: Tyron Mandel Operations Advisor: Anabella Wu Anesthesiologist/TOMBSTONE CARVER: Marcella Mcfarlane Anesthesia: General Specimens Removed: subdural fluid for culture/gram stain, cytology, membrane for path Estimated Blood Loss (mls): 200 Drains & Tubes with Location: 12 fr red rubber subdural catheter
[2018-10-22] MEDS ORDERED: ONDANSETRON 4 MG/2 ML VIAL IVPUSH PRN ×2 (18:36→19:54)
[2018-10-22] MEDS ORDERED: ACETAMINOPHEN WITH CODEINE 300MG/30MG TABLET PO PRN (18:36)
[2018-10-22] MEDS ORDERED: D5-NS + 20 MEQ KCL - 20 MEQ/1,000 ML INFUS.BAG IV SCH (18:45)
--- NOTE | 2018-10-22 19:11 | SURG ---
Surgery Mushroom Spawn Maker Note Mushroom Spawn Maker: Anabella Wu PA-C Date of Service: 10/22/18 Diagnosis: R parietal SDH with mass effect and shift Procedure: R parietal craniotomy for evacuation of SDH, subdural drain placement, excision of subdural membrane, microdissection I was present for the entirety of the operative procedure. For further detail, please refer to operative report. Visit type - Case Type Case Type: ED Admission - Emergency Emergency Visit: Yes ED Registration Date: 10/21/18 Care time: The patient presented to the Emergency Department on the above date and was hospitalized for further evaluation of their emergent condition. - New patient This patient is new to me today: Yes Date on this admission: 10/22/18
--- NOTE | 2018-10-22 19:21 | PN ---
Progress Note (short form) - Note Progress Note: NEUROSURGERY Postop No complaint In ICU AF, VSS Still somewhat sleepy, eyes open to command CN- intact; Motor- moving B UE/LE at least 4/5; Sensation- intact LT S/p R parietal craniotomy for acute on chronic R SDH with mass effect and 3mm shift Chronic EtOH use Cont Keppra Cont subdural drain Albumin q 24 hrs to facilitate brain expansion HOB flat side to side q [address] in AM Findings d/w pt, family, and RN
[2018-10-22] MEDS ORDERED: ALBUMIN HUMAN 5% 250 ML IV SOLUTION IVPB ONE (19:22)
[2018-10-22 19:50] LABS: BASO % 0.4 % (0-2.0); HEMATOCRIT 41.3 % (35.4-49); HEMOGLOBIN 13.5 GM/dL (11.7-16.9); LYMPH % 23.1 % (8-40); MCH 30.4 pg (25.7-33.7); MCHC 32.6 g/dl (32.0-35.9); MEAN CELL VOLUME 93.3 fl (80-96); MEAN PLT VOLUME 8.5 fl (7.5-11.1); MONO % 4.7 % (3.8-10.2); NEUT % 68.8 % (42.8-82.8); PLATELET COUNT 210 K/MM3 (134-434); RBC 4.43 M/mm3 (4.00-5.60); RDW 15.2 % (11.9-15.9); WHITE BLOOD COUNT 3.8 K/mm3 (4.0-10.0)
[2018-10-22] MEDS ORDERED: LACTATED RINGERS SOLUTION 1,000 ML IV SCH (20:00)
[2018-10-22 20:17] LABS: ALBUMIN 2.7 g/dl (3.4-5.0); ALK PHOS 87 U/L (45-117); ANION GAP 5 MMOL/L (8-16); BILIRUBIN,TOTAL 0.8 mg/dL (0.2-1); BLOOD UREA NITROGEN 5.1 mg/dL (7-18); CHLORIDE 106 mmol/L (98-107); CO2 30 mmol/L (21-32); CREATININE 0.8 mg/dL (0.55-1.3); GLUCOSE,RANDOM 159 mg/dL (74-106); POTASSIUM 3.3 mmol/L (3.5-5.1); SGOT/AST 45 U/L (15-37); SGPT/ALT 38 U/L (13-61); SODIUM 140 mmol/L (136-145); TOT PROT 6.5 g/dl (6.4-8.2)
[2018-10-22] MEDS: DOCUSATE SODIUM 100 MG CAPSULE (FP) PO SCH (22:33)
[2018-10-22] MEDS: LATANOPROST 0.005% OPHTH SOLN 2.5ML BOTTLE OU SCH (23:36)
[2018-10-23] MEDS ORDERED: LORazepam 0.5 MG TABLET PO PRN
[2018-10-23] MEDS: D5-1/2NS+20 MEQ KCL - 20 MEQ/1,000 ML INFUS.BAG IV SCH ×2 (01:00→23:00)
[2018-10-23] MEDS ORDERED: CEFAZOLIN 1 GM/D5W 1 GM/50 ML BAG IVPB SCH (02:00)
[2018-10-23] MEDS: SODIUM CHLORIDE 1,000 ML IV SCH (03:59)
[2018-10-23 06:25] LABS: HEMATOCRIT 40.2 % (35.4-49); HEMOGLOBIN 13.3 GM/dL (11.7-16.9); MCH 30.7 pg (25.7-33.7); MCHC 33.2 g/dl (32.0-35.9); MEAN CELL VOLUME 92.5 fl (80-96); MEAN PLT VOLUME 8.8 fl (7.5-11.1); PLATELET COUNT 237 K/MM3 (134-434); RBC 4.34 M/mm3 (4.00-5.60); RDW 14.8 % (11.9-15.9); WHITE BLOOD COUNT 7.5 K/mm3 (4.0-10.0)
[2018-10-23] MEDS: LORazepam 0.5 MG TABLET PO SCH ×5 (06:31→22:44)
[2018-10-23] MEDS: DOCUSATE SODIUM 100 MG CAPSULE (FP) PO SCH ×3 (06:41→21:10)
[2018-10-23 06:51] LABS: BLOOD UREA NITROGEN 4.2 mg/dL (7-18); CALCIUM 7.9 mg/dL (8.5-10.1); CREATININE 0.7 mg/dL (0.55-1.3); POTASSIUM 3.8 mmol/L (3.5-5.1)
[2018-10-23] MEDS ORDERED: PT OWN MED DRAWER 7, Y5N ONE ×2 (08:14→21:12)
--- NOTE | 2018-10-23 08:30 | PN ---
Physical Exam: SUBJECTIVE: Patient seen and examined. Patient laying in bed flat. Pt denies CP , SOB, Fever, Chills, N/V/D OBJECTIVE: Vital Signs Period Temp Pulse Resp BP Sys/Romero Pulse Ox Last 24 Hr 97 F-975 F 74-100 - 137-170/70-109 97-100 GENERAL: The patient is awake, alert, and fully oriented, in no acute distress. HEAD: Drain in Place. EYES: PERRL, extraocular movements intact, sclera anicteric, conjunctiva clear. No ptosis. ENT: Ears normal, nares patent, oropharynx clear without exudates, moist mucous membranes. NECK: Trachea midline, full range of motion, supple. LUNGS: Breath sounds equal, clear to auscultation bilaterally, no wheezes, no crackles HEART: Regular rate and rhythm, S1, S2 without murmur ABDOMEN: Soft, nontender, nondistended, normoactive bowel sounds, no guarding, no rebound EXTREMITIES: 2+ pulses, warm, well-perfused, no edema. NEUROLOGICAL: Normal speech, gait not observed. PSYCH: Normal mood, normal affect. SKIN: Warm, dry, normal turgor, no rashes or lesions noted Laboratory Results - last 24 hr 10/22/18 10/22/18 10/22/18 15:50 15:55 19:15 WBC 3.8 L RBC 4.43 Hgb 13.5 Hct 41.3 MCV 93.3 MCH 30.4 MCHC 32.6 RDW 15.2 Plt Count 210 MPV 8.5 Absolute Neuts (auto) 2.6 Neutrophils % 68.8 D Lymphocytes % 23.1 D Monocytes % 4.7 Eosinophils % 3.0 Basophils % 0.4 Nucleated RBC % 0 Sodium Potassium Chloride Carbon Dioxide Anion Gap BUN Creatinine Est GFR (CKD-EPI)AfAm Est GFR (CKD-EPI)NonAf Random Glucose Calcium Total Bilirubin AST ALT Alkaline Phosphatase Total Protein Albumin Alcohol, Quantitative Blood Type O POSITIVE O POSITIVE Antibody Screen Negative Crossmatch See Detail 10/22/18 10/23/18 10/23/18 19:15 05:25 05:25 WBC 7.5 RBC 4.34 Hgb 13.3 Hct 40.2 MCV 92.5 MCH 30.7 MCHC 33.2 RDW 14.8 Plt Count 237 MPV 8.8 Absolute Neuts (auto) Neutrophils % Lymphocytes % Monocytes % Eosinophils % Basophils % Nucleated RBC % Sodium 140 138 Potassium 3.3 L 3.8 Chloride 106 104 Carbon Dioxide 30 27 Anion Gap 5 L 7 L BUN 5.1 L 4.2 L Creatinine 0.8 0.7 Est GFR (CKD-EPI)AfAm 96.42 101.86 Est GFR (CKD-EPI)NonAf 83.19 87.88 Random Glucose 159 H 230 H Calcium 8.0 L 7.9 L Total Bilirubin 0.8 AST 45 H ALT 38 Alkaline Phosphatase 87 Total Protein 6.5 Albumin 2.7 L Alcohol, Quantitative < 3.0 Blood Type Antibody Screen Crossmatch Active Medications Generic Name Dose Route Start Last Admin Trade Name Freq PRN Reason Stop Dose Admin Acetaminophen/Codeine Phosphate 1 tab 10/22/18 18:36 10/23/18 08:15 Tylenol # 3 - PO 10/23/18 18:35 1 tab Q4H PRN Administration PAIN LEVEL 4 - 6 Albuterol Sulfate 1 amp 10/21/18 15:11 Ventolin 0.083% Nebulizer Soln - NEB Q6H PRN SHORT OF BREATH/WHEEZING Carvedilol 25 mg 10/22/18 10:00 10/22/18 22:33 Coreg - PO 25 mg BID PEREZ Administration Docusate Sodium 100 mg 10/21/18 15:06 Colace - PO DAILY PRN CONSTIPATION Docusate Sodium 100 mg 10/22/18 22:00 10/23/18 06:41 Colace - PO 100 mg TID PEREZ Administration Fentanyl 25 mcg 10/22/18 19:54 Sublimaze Injection - IVPUSH [id number] PRN PAIN-PACU ORDER X 4 DOSES ONLY Sodium Chloride 1,000 mls @ 50 mls/hr 10/21/18 03:30 10/23/18 03:59 Normal Saline - IV Not Given ASDIR PEREZ Cefazolin Sodium 1 gm in 50 mls @ 100 mls/hr 10/23/18 02:00 10/23/18 02:00 Ancef 1 Gm Premixed Ivpb - IVPB 10/24/18 01:59 100 mls/hr Q8H-IV PEREZ Administration Potassium Chloride/Dextrose/Sod Cl 20 meq in 1,000 mls @ 75 mls/hr 10/23/18 01 :00 10/23/18 01:00 D5-1/2ns+20 Meq Kcl - IV Not Given ASDIR PEREZ Lactated Ringer's 1,000 mls @ 125 mls/hr 10/22/18 20:00 10/22/18 22:33 Lactated Ringers Solution IV Not Given ASDIR PEREZ Latanoprost 1 drop 10/21/18 22:00 10/22/18 23:36 Xalatan 0.005% Eye Drops - OU 1 drop HS PEREZ Administration Levetiracetam 500 mg 10/21/18 22:00 10/22/18 22:33 Keppra - PO 500 mg BID PEREZ Administration Lorazepam 0.5 mg 10/23/18 05:00 10/23/18 06:31 Ativan - PO 10/23/18 23:01 Not Given Q6H PEREZ Lorazepam 0.5 mg 10/23/18 00:00 Ativan - PO 10/24/18 00:00 Q4H PRN Symptoms of Withdrawal Lorazepam 0.5 mg 10/24/18 05:00 Ativan - PO 10/24/18 05:01 ONCE ONE Ondansetron HCl 4 mg 10/22/18 18:36 Zofran Injection IVPUSH Q6H PRN NAUSEA Ondansetron HCl 4 mg 10/22/18 19:54 Zofran Injection IVPUSH Q6H PRN NAUSEA AND/OR VOMITING Pantoprazole Sodium 40 mg 10/23/18 10:00 Protonix Iv IVPUSH DAILY [facility] Thiamine HCl 200 mg 10/21/18 10:00 10/22/18 10:29 Vitamin B1 Injection - IVPB 200 mg BID PEREZ Administration ASSESSMENT/PLAN: 83 year old male with a history of atrial fibrillation not on anticoagulation, hypertension, asthma, glaucoma, frequent falls and alcohol abuse presented to the hospital s/p fall and admitted for the treatment of chronic subdural hematoma with midline shift. S/P Craniotomy with SDH evacuation Chronic Subdural hematoma S.P craniotomy -Follow surgeons orders Cont Keppra PO Cont subdural drain for 24 hours HOB flat side to side q 2 hrs Keep SBP < 160, DBP < 90 Plan d/c drain tomorrow -Serial Neuro Checks Atrial fibrillation -atrial fibrillation, rate controlled -not on anticoagulation Hypertension -continue carvedilol 25 BID Asthma -Albuterol as needed Alcohol abuse -Continue Thaimine 200mg IVPB BID FEN -D5 - 1/2 NS with KCL -low sodium diet -replete lytes as necessary in AM Prophylaxis -SCDS, no chemoprophylaxis -colace for constipation Disposition -ICU monitoring, anticipate downgrade in 1-2 days - drain in place with 20cc output cont to monitor drain output Visit type - Emergency Visit Emergency Visit: Yes ED Registration Date: 10/21/18 Care time: The patient presented to the Emergency Department on the above date and was hospitalized for further evaluation of their emergent condition. - New Patient This patient is new to me today: Yes Date on this admission: 10/23/18 - Critical Care Critical Care patient: Yes Total Critical Care Time (in minutes): 45 Critical Care Statement: The care of this patient involved high complexity decision making to prevent further life threatening deterioration of the patient 's condition and/or to evaluate & treat vital organ system(s) failure or risk of failure.
[2018-10-23] MEDS: PANTOPRAZOLE SODIUM 40 MG VIAL IVPUSH SCH (09:34)
[2018-10-23] MEDS: levETIRAcetam 500 MG TABLET (FP) PO SCH ×2 (09:34→21:10)
[2018-10-23] MEDS: CARVEDILOL 25 MG TABLET (FP) PO SCH ×2 (09:34→21:11)
--- NOTE | 2018-10-23 10:04 | PN ---
Physical Exam: SUBJECTIVE: Patient seen and examined at bed side , no acute events over night , BP around 160 systolic and drainage with about 100 cc . slight headache , No BM yet , passing urine \ POD# 1 S/P craniotomy for SDH acute on chronic , asking for food OBJECTIVE: Vital Signs Period Temp Pulse Resp BP Sys/Romero Pulse Ox Last 24 Hr 97 F-975 F 74-100 12-19 137-170/70-103 96-100 GENERAL: The patient is awake, alert, and fully oriented, in no acute distress. HEAD: drain in place EYES: PERRL, extraocular movements intact, sclera anicteric, conjunctiva clear. NECK: Trachea midline, full range of motion, supple. LUNGS: Breath sounds equal, clear to auscultation bilaterally, no wheezes, no crackles, no accessory muscle use. HEART: Regular rate and rhythm, S1, S2 without murmur, rub or gallop. ABDOMEN: Soft, nontender, nondistended, normoactive bowel sounds, no guarding, no rebound, no hepatosplenomegaly, no masses. EXTREMITIES: 2+ pulses, warm, well-perfused, no edema. NEUROLOGICAL: Cranial nerves II through XII grossly intact. Normal speech, gait not observed.strenth 5/5 RUE and B/L LE proximal and distal , LUE4/5 strength , sensation intact all over PSYCH: Normal mood, normal affect. SKIN: Warm, dry, normal turgor Laboratory Results - last 24 hr 10/22/18 10/22/18 10/22/18 15:50 15:55 19:15 WBC 3.8 L RBC 4.43 Hgb 13.5 Hct 41.3 MCV 93.3 MCH 30.4 MCHC 32.6 RDW 15.2 Plt Count 210 MPV 8.5 Absolute Neuts (auto) 2.6 Neutrophils % 68.8 D Lymphocytes % 23.1 D Monocytes % 4.7 Eosinophils % 3.0 Basophils % 0.4 Nucleated RBC % 0 Sodium Potassium Chloride Carbon Dioxide Anion Gap BUN Creatinine Est GFR (CKD-EPI)AfAm Est GFR (CKD-EPI)NonAf Random Glucose Calcium Total Bilirubin AST ALT Alkaline Phosphatase Total Protein Albumin Alcohol, Quantitative Blood Type O POSITIVE O POSITIVE Antibody Screen Negative Crossmatch See Detail 10/22/18 10/23/18 10/23/18 19:15 05:25 05:25 WBC 7.5 RBC 4.34 Hgb 13.3 Hct 40.2 MCV 92.5 MCH 30.7 MCHC 33.2 RDW 14.8 Plt Count 237 MPV 8.8 Absolute Neuts (auto) Neutrophils % Lymphocytes % Monocytes % Eosinophils % Basophils % Nucleated RBC % Sodium 140 138 Potassium 3.3 L 3.8 Chloride 106 104 Carbon Dioxide 30 27 Anion Gap 5 L 7 L BUN 5.1 L 4.2 L Creatinine 0.8 0.7 Est GFR (CKD-EPI)AfAm 96.42 101.86 Est GFR (CKD-EPI)NonAf 83.19 87.88 Random Glucose 159 H 230 H Calcium 8.0 L 7.9 L Total Bilirubin 0.8 AST 45 H ALT 38 Alkaline Phosphatase 87 Total Protein 6.5 Albumin 2.7 L Alcohol, Quantitative < 3.0 Blood Type Antibody Screen Crossmatch Active Medications Generic Name Dose Route Start Last Admin Trade Name Freq PRN Reason Stop Dose Admin Acetaminophen/Codeine Phosphate 1 tab 10/22/18 18:36 10/23/18 08:15 Tylenol # 3 - PO 10/23/18 18:35 1 tab Q4H PRN Administration PAIN LEVEL 4 - 6 Albuterol Sulfate 1 amp 10/21/18 15:11 Ventolin 0.083% Nebulizer Soln - NEB Q6H PRN SHORT OF BREATH/WHEEZING Carvedilol 25 mg 10/22/18 10:00 10/23/18 09:34 Coreg - PO 25 mg BID PEREZ Administration Docusate Sodium 100 mg 10/21/18 15:06 Colace - PO DAILY PRN CONSTIPATION Docusate Sodium 100 mg 10/22/18 22:00 10/23/18 06:41 Colace - PO 100 mg TID PEREZ Administration Fentanyl 25 mcg 10/22/18 19:54 Sublimaze Injection - IVPUSH [id number] PRN PAIN-PACU ORDER X 4 DOSES ONLY Sodium Chloride 1,000 mls @ 50 mls/hr 10/21/18 03:30 10/23/18 03:59 Normal Saline - IV Not Given ASDIR PEREZ Potassium Chloride/Dextrose/Sod Cl 20 meq in 1,000 mls @ 75 mls/hr 10/23/18 01 :00 10/23/18 01:00 D5-1/2ns+20 Meq Kcl - IV Not Given ASDIR PEREZ Lactated Ringer's 1,000 mls @ 125 mls/hr 10/22/18 20:00 10/22/18 22:33 Lactated Ringers Solution IV Not Given ASDIR PEREZ Cefazolin Sodium 1 gm/ 50 mls @ 100 mls/hr 10/23/18 10:00 Dextrose IVPB 10/24/18 01:59 Q8H-IV PEREZ Latanoprost 1 drop 10/21/18 22:00 10/22/18 23:36 Xalatan 0.005% Eye Drops - OU 1 drop HS PEREZ Administration Levetiracetam 500 mg 10/21/18 22:00 10/23/18 09:34 Keppra - PO 500 mg BID PEREZ Administration Lorazepam 0.5 mg 10/23/18 05:00 10/23/18 06:31 Ativan - PO 10/23/18 23:01 Not Given Q6H PEREZ Lorazepam 0.5 mg 10/23/18 00:00 Ativan - PO 10/24/18 00:00 Q4H PRN Symptoms of Withdrawal Lorazepam 0.5 mg 10/24/18 05:00 Ativan - PO 10/24/18 05:01 ONCE ONE Ondansetron HCl 4 mg 10/22/18 18:36 Zofran Injection IVPUSH Q6H PRN NAUSEA Ondansetron HCl 4 mg 10/22/18 19:54 Zofran Injection IVPUSH Q6H PRN NAUSEA AND/OR VOMITING Pantoprazole Sodium 40 mg 10/23/18 10:00 10/23/18 09:34 Protonix Iv IVPUSH 40 mg DAILY PEREZ Administration Thiamine HCl 200 mg 10/21/18 10:00 10/22/18 10:29 Vitamin B1 Injection - IVPB 200 mg BID PEREZ Administration CBC, BMP 10/23/18 05:25 10/23/18 05:25 ASSESSMENT/PLAN: 83 year old male with a history of atrial fibrillation not on anticoagulation, hypertension, asthma, glaucoma, frequent falls and alcohol abuse presented to the hospital s/p fall and admitted for the treatment of chronic subdural hematoma with midline shift..P Craniotomy with SDH evacuation , POD #1 #Chronic Subdural hematoma S.P craniotomy POD#1 #Atrial fibrillation #Hypertension #Asthma #Glaucoma #Alcohol abuse Neurological -chronic R sided hematoma with 3mm midline shift on head CT -pod#1 cranitomy with drainage 100 over 24 hr -monitor BP Gaol below 160/90-140/80 . Norvasc was increased to 10 mg PO yesterday will give procardia 10 TID PRN for BP > 180 systolic -serial neurologic exams -will follow neurosurgical recommendations -f/u CT this AM -hydrate patient to assist with re-expansion of brain -keep head of bed flat 30 degree when eating -ativan withdrawal protocol for alcohol abuse -thiamine/folate -on keppra, continue Cardiovascular # HTN #atrial fibrillation, rate controlled -not on anticoagulation, will d/w neurosurg and cardiology due to future risk of stroke -continue carvedilol 25 BID -monitor BP Gaol below 160/90-140/80 . Norvasc was increased to 10 mg PO yesterday will give procardia 10 TID PRN for BP > 180 systolic -cards input appreciated Pulmonary -asthma, albuterol as needed Gastrointestinal -colace for constipation Renal -no acute issues FEN -D5 - 1/2 NS with KCL -low sodium diet -replete lytes as necessary in AM Prophylaxis -SCDS, no chemoprophylaxis Disposition -ICU monitoring, anticipate downgrade in 1-2 days - drain inplace with 100 cc . cont to monitor drain ou put Visit type - Emergency Visit Emergency Visit: Yes ED Registration Date: 10/21/18 Care time: The patient presented to the Emergency Department on the above date and was hospitalized for further evaluation of their emergent condition. - New Patient This patient is new to me today: Yes Date on this admission: 10/23/18 - Critical Care Critical Care patient: Yes Total Critical Care Time (in minutes): 40 Critical Care Statement: The care of this patient involved high complexity decision making to prevent further life threatening deterioration of the patient 's condition and/or to evaluate & treat vital organ system(s) failure or risk of failure. - Discharge Referral Referred to [facility] Med [facility] No ATTENDING PHYSICIAN STATEMENT I saw and evaluated the patient. I reviewed the resident's note and discussed the case with the resident. I agree with the resident's findings and plan as documented. SUBJECTIVE: OBJECTIVE: ASSESSMENT AND PLAN:
[2018-10-23] MEDS: THIAMINE HCL 200 MG/2 ML VIAL IVPB SCH ×2 (10:15→21:13)
--- NOTE | 2018-10-23 10:15 | PN ---
Progress Note (short form) - Note Progress Note: NEUROSURGERY POD #1 No new complaint Minimal incisional pain; no sz, n/v In ICU Tmax 98.1, AF, occ systolic HTN, VSS Drain- about 100 cc output Still somewhat sleepy, eyes open to command CN- intact; Motor- moving B UE/LE at least 4/5; Sensation- intact LT Head CT- decreased R parietal SDH, less cortical mass effect, ventricles normal position, no midline shift Labs reviewed S/p R parietal craniotomy for acute on chronic R SDH, CT improved Chronic EtOH use Cont Keppra PO Cont subdural drain for 24 hours HOB flat side to side q 2 hrs Keep SBP < 160, DBP < 90 Plan d/c drain tomorrow Adv diet, may have HOB 30 degtrees for meals Cont SCD's for DVT prophylaxis Findings d/w pt, ICU team and RN
[2018-10-23] MEDS ORDERED: ceFAZolin SODIUM 1 GM VIAL ONE ×2 (10:20→18:37)
[2018-10-23] MEDS ORDERED: DEXTROSE 5%-WATER - 50 ML IVPB ONE ×2 (10:20→18:37)
[2018-10-23] MEDS: CEFAZOLIN 1 GM in DEXTROSE 5%-WATER - 50 ML IVPB SCH ×2 (10:20→18:38)
--- NOTE | 2018-10-23 10:49 | PN ---
Teaching Attending Note Name of Resident: Tommy Pike ATTENDING PHYSICIAN STATEMENT I saw and evaluated the patient. I reviewed the resident's note and discussed the case with the resident. I agree with the resident's findings and plan as documented. SUBJECTIVE: Patient seen and examined in the ICU. Awake and alert. Slight LUND. No CP or SOB. No acute events overnight. OBJECTIVE: Intake & Output 10/20/18 10/21/18 10/22/18 10/23/18 23:59 23:59 23:59 23:59 Intake Total 400 2025 1000 Output Total 710 100 Balance 400 1315 900 Weight 250 lb 238 lb 1.588 oz Last Vital Signs Temp Pulse Resp BP Pulse Ox 97.2 F L 98 H 16 170/92 96 10/23/18 06:00 10/23/18 09:00 10/23/18 09:00 10/23/18 09:00 10/23/18 08:41 Active Medications Acetaminophen/Codeine Phosphate (Tylenol # 3 -) 1 tab PO Q4H PRN PRN Reason: PAIN LEVEL 4 - 6 Stop: 10/23/18 18:35 Last Admin: 10/23/18 08:15 Dose: 1 tab Albuterol Sulfate (Ventolin 0.083% Nebulizer Soln -) 1 amp NEB Q6H PRN PRN Reason: SHORT OF BREATH/WHEEZING Carvedilol (Coreg -) 25 mg PO BID [facility] Last Admin: 10/23/18 09:34 Dose: 25 mg Docusate Sodium (Colace -) 100 mg PO DAILY PRN PRN Reason: CONSTIPATION Docusate Sodium (Colace -) 100 mg PO TID [facility] Last Admin: 10/23/18 06:41 Dose: 100 mg Fentanyl (Sublimaze Injection -) 25 mcg IVPUSH [id number] PRN PRN Reason: PAIN-PACU ORDER X 4 DOSES ONLY Sodium Chloride (Normal Saline -) 1,000 mls @ 50 mls/hr IV ASDIR [facility] Last Admin: 10/23/18 03:59 Dose: Not Given Potassium Chloride/Dextrose/Sod Cl (D5-1/2ns+20 Meq Kcl -) 20 meq in 1,000 mls @ 75 mls/hr IV ASDIR [facility] Last Admin: 10/23/18 01:00 Dose: Not Given Lactated Ringer's (Lactated Ringers Solution) 1,000 mls @ 125 mls/hr IV ASDIR [facility] Last Admin: 10/22/18 22:33 Dose: Not Given Cefazolin Sodium 1 gm/ (Dextrose) 50 mls @ 100 mls/hr IVPB Q8H-IV PEREZ Stop: 10/24/18 01:59 Last Admin: 10/23/18 10:20 Dose: 100 mls/hr Latanoprost (Xalatan 0.005% Eye Drops -) 1 drop OU HS [facility] Last Admin: 10/22/18 23:36 Dose: 1 drop Levetiracetam (Keppra -) 500 mg PO BID [facility] Last Admin: 10/23/18 09:34 Dose: 500 mg Lorazepam (Ativan -) 0.5 mg PO Q6H [facility] Stop: 10/23/18 23:01 Last Admin: 10/23/18 06:31 Dose: Not Given Lorazepam (Ativan -) 0.5 mg PO Q4H PRN PRN Reason: Symptoms of Withdrawal Stop: 10/24/18 00:00 Lorazepam (Ativan -) 0.5 mg PO ONCE ONE Stop: 10/24/18 05:01 Ondansetron HCl (Zofran Injection) 4 mg IVPUSH Q6H PRN PRN Reason: NAUSEA Ondansetron HCl (Zofran Injection) 4 mg IVPUSH Q6H PRN PRN Reason: NAUSEA AND/OR VOMITING Pantoprazole Sodium (Protonix Iv) 40 mg IVPUSH DAILY [facility] Last Admin: 10/23/18 09:34 Dose: 40 mg Thiamine HCl (Vitamin B1 Injection -) 200 mg IVPB BID [facility] Last Admin: 10/23/18 10:15 Dose: 200 mg GENERAL: The patient is awake, alert, and fully oriented, in no acute distress. HEAD: drain in place EYES: PERRL, extraocular movements intact, sclera anicteric, conjunctiva clear. NECK: Trachea midline, full range of motion, supple. LUNGS: Breath sounds equal, clear to auscultation bilaterally, no wheezes, no crackles, no accessory muscle use. HEART: Regular rate and rhythm, S1, S2 without murmur, rub or gallop. ABDOMEN: Soft, nontender, nondistended, normoactive bowel sounds, no guarding, no rebound, no hepatosplenomegaly, no masses. EXTREMITIES: 2+ pulses, warm, well-perfused, no edema. NEUROLOGICAL: Cranial nerves II through XII grossly intact. Normal speech, gait not observed.strenth 5/5 RUE and B/L LE proximal and distal , LUE 4/5 strength , sensation intact all over PSYCH: Normal mood, normal affect. SKIN: Warm, dry, normal turgor Laboratory Results - last 24 hr 10/22/18 10/22/18 10/22/18 15:50 15:55 19:15 WBC 3.8 L RBC 4.43 Hgb 13.5 Hct 41.3 MCV 93.3 MCH 30.4 MCHC 32.6 RDW 15.2 Plt Count 210 MPV 8.5 Absolute Neuts (auto) 2.6 Neutrophils % 68.8 D Lymphocytes % 23.1 D Monocytes % 4.7 Eosinophils % 3.0 Basophils % 0.4 Nucleated RBC % 0 Sodium Potassium Chloride Carbon Dioxide Anion Gap BUN Creatinine Est GFR (CKD-EPI)AfAm Est GFR (CKD-EPI)NonAf Random Glucose Calcium Total Bilirubin AST ALT Alkaline Phosphatase Total Protein Albumin Alcohol, Quantitative Blood Type O POSITIVE O POSITIVE Antibody Screen Negative Crossmatch See Detail 10/22/18 10/23/18 10/23/18 19:15 05:25 05:25 WBC 7.5 RBC 4.34 Hgb 13.3 Hct 40.2 MCV 92.5 MCH 30.7 MCHC 33.2 RDW 14.8 Plt Count 237 MPV 8.8 Absolute Neuts (auto) Neutrophils % Lymphocytes % Monocytes % Eosinophils % Basophils % Nucleated RBC % Sodium 140 138 Potassium 3.3 L 3.8 Chloride 106 104 Carbon Dioxide 30 27 Anion Gap 5 L 7 L BUN 5.1 L 4.2 L Creatinine 0.8 0.7 Est GFR (CKD-EPI)AfAm 96.42 101.86 Est GFR (CKD-EPI)NonAf 83.19 87.88 Random Glucose 159 H 230 H Calcium 8.0 L 7.9 L Total Bilirubin 0.8 AST 45 H ALT 38 Alkaline Phosphatase 87 Total Protein 6.5 Albumin 2.7 L Alcohol, Quantitative < 3.0 Blood Type Antibody Screen Crossmatch ASSESSMENT/PLAN: POD #1 craniotmy and evacuation of a SDH History of atrial fibrillation not on anticoagulation Hypertension Asthma Glaucoma Frequent falls Alcohol abuse BP goal: Less than 160/90 Follow Neuro exam Close monitoring of Neuro exam Pain control Incentive Spirometry AEDs ICU monitoring for Neuro checks and drain monitoring Dr Crespo Critical care time spent in reviewing chart, evaluating patient and formulating plan - 36 minutes.
[2018-10-23] MEDS ORDERED: NIFEdipine 10 MG CAPSULE (FP) PO PRN (10:53)
[2018-10-23] MEDS ORDERED: ENALAPRILAT DIHYDRATE 2.5 MG/2 ML VIAL IVPB PRN (11:32)
--- NOTE | 2018-10-23 13:48 | OP ---
DATE OF OPERATION: 10/22/2018 PREOPERATIVE DIAGNOSIS: Acute on chronic right parietal subdural hematoma with mass effect and midline shift. POSTOPERATIVE DIAGNOSIS: Acute on chronic right parietal subdural hematoma with mass effect and midline shift. PROCEDURE: 1. Right parietal craniotomy for evacuation of subdural hematoma and excision of subdural membrane. 2. Placement of the right parietal subdural drain. 3. Microsurgical dissection with the operative microscope and microsurgical technique. ATTENDING SURGEON: Tyron Mandel MD DRY ROASTER: BAIRON Ruano ANESTHESIA: General endotracheal. ANESTHESIOLOGIST: Marcella Mcfarlane MD ESTIMATED BLOOD LOSS: 200 mL. FINDINGS: 1. Acute on chronic subdural hematoma with cortical mass effect. 2. Subdural membrane with neovascularization. INDICATIONS: The patient is an 83-year-old male who has EtOH dependence, who has experienced intermittent falls over the past year or two. He was found on CT scan to have a moderate-sized right parietal subdural hematoma with cortical mass effect and midline shift. Because of the CT scan findings and his recent falls, he is consented for right parietal craniotomy for evacuation of subdural hematoma. The risks of the procedure include, but are not limited to, bleeding, infection, stroke, seizure, coma, , inclusive of thromboembolic risks and the risks of general anesthesia. The patient understands the indication for the procedure, the procedure in detail, risks, benefits, and alternatives for treatment of his condition, and wished to proceed. No guarantees were given for a favorable outcome. PROCEDURE IN DETAIL: After patient was taken to the operating room, he was placed in supine position. After general anesthesia was induced and appropriate monitoring lines were placed, he was turned into the left lateral decubitus position with his right side up. The head was secured in a [place]. He was placed on a beanbag, and all pressure points were checked and padded. Right temporoparietal region was clipped, cleaned with alcohol and prepped with Betadine. A curvilinear incision was planned hinged laterally. After the patient was sterilely prepped and draped, skin was infiltrated with about 10 mL of 1% Xylocaine with epinephrine. At this point, scalp incision was opened with a No. 10 blade. Horacio clips were applied. An osteoplastic flap was planned. Four small lucia holes were made. The temporalis muscle and fascial cuff were left for osteoplastic craniotomy. The underlying dura was dissected free with angled curettes. The high-speed craniotome was used to create a craniotomy bone flap. The bone flap was then removed. Adequate hemostasis was obtained with thrombin-soaked powdered Gelfoam. The dura was opened, hinged laterally. The underlying subdural membrane was visible. At this point, the membrane was opened sharply. It was excised with Metzenbaum scissors and sent for pathology analysis. A brownish underlying fluid was encountered as well as some acute blood clots. These were thoroughly evacuated and irrigated. This portion of the procedure was performed with use of the operating microscope for both illumination and magnification. Microsurgical techniques were utilized. Subdural membrane adhesions were coagulated with bipolar electrocautery. The wound was once again irrigated, and layers of Surgicel were laid on the arachnoid membrane. At this point, a drain was left in the subdural space which came out through a separate stab incision anteriorly. This was a No. 12 Serbian red rubber catheter. The dura was then reapproximated with 4-0 Nurolon sutures. The craniotomy bone flap was secured with the JayCut Titanium plate, tacking and plating and screw systems. The wound was once again irrigated. The Horacio clips were removed. The temporalis muscle with fascia was reattached with 0 Vicryl sutures. The subcutaneous fascia was closed with 3-0 Vicryl suture, and skin was closed with 3-0 Prolene running suture. Xeroform was applied to the incision as was as sterile 4 x 4's , and the head wrap was applied. The patient tolerated the procedure well and was extubated in the operating room. He was moving bilateral upper and lower extremities well. His drain was connected to a sterile collection system. Patient received 1 dose of 2 g Ancef prior to the incision. All needle and lap counts were correct. The OR timeout procedure was followed. The family was updated as to intraoperative findings as well as the patients postoperative condition. TYRON MANDEL M.D. [id number] MTDD
[2018-10-23] MEDS: LATANOPROST 0.005% OPHTH SOLN 2.5ML BOTTLE OU SCH (21:13)
[2018-10-24] MEDS ORDERED: LORazepam 0.5 MG TABLET PO ONE (05:00)
[2018-10-24] MEDS: SODIUM CHLORIDE 1,000 ML IV SCH (05:22)
[2018-10-24] MEDS: DOCUSATE SODIUM 100 MG CAPSULE (FP) PO SCH ×3 (05:33→22:28)
[2018-10-24 06:36] LABS: BASO % 0.2 % (0-2.0); EOS % 0.6 % (0-4.5); HEMATOCRIT 36.2 % (35.4-49); HEMOGLOBIN 11.9 GM/dL (11.7-16.9); LYMPH % 18.6 % (8-40); MCH 30.8 pg (25.7-33.7); MCHC 32.9 g/dl (32.0-35.9); MEAN CELL VOLUME 93.5 fl (80-96); MEAN PLT VOLUME 9.1 fl (7.5-11.1); MONO % 7.3 % (3.8-10.2); NEUT % 73.3 % (42.8-82.8); PLATELET COUNT 175 K/MM3 (134-434); RBC 3.87 M/mm3 (4.00-5.60); RDW 15.4 % (11.9-15.9); WHITE BLOOD COUNT 8.5 K/mm3 (4.0-10.0)
[2018-10-24 07:16] LABS: ALBUMIN 2.4 g/dl (3.4-5.0); BILIRUBIN,TOTAL 0.7 mg/dL (0.2-1); CALCIUM 7.5 mg/dL (8.5-10.1); CREATININE 0.8 mg/dL (0.55-1.3); MAGNESIUM 1.4 mg/dL (1.8-2.4); PHOSPHOROUS 2.1 mg/dL (2.5-4.9); POTASSIUM 3.6 mmol/L (3.5-5.1); TOT PROT 5.8 g/dl (6.4-8.2)
--- NOTE | 2018-10-24 07:31 | PN ---
Physical Exam: SUBJECTIVE: No acute events overnight. Pt has no complaints today and denies any weakness or numbness currently. OBJECTIVE: Vital Signs Period Temp Pulse Resp BP Sys/Romero Pulse Ox Last 24 Hr 98 F-98.7 F 75-104 12-24 132-195/69-118 96-98 GENERAL: NAD, awake, alert, and fully oriented HEENT: Rt-sided drain with minimal sanguinous drainage, bandage overlying area, sclera anicteric, MMM NECK: No JVD LUNGS: CTA bilaterally, no wheezes, no crackles, no accessory muscle use. HEART: RRR, S1, S2 without murmur ABDOMEN: Soft, NT/Nd, normoactive bowel sounds, no guarding EXTREMITIES: 2+ distal pulses, warm, well-perfused, no edema. NEUROLOGICAL: team member II through XII grossly intact. Strength 5/5 RUE and RLE, strength improvement in LUE since yesterday roughly 5/5, 5/5 in LLE, no sensation loss, Normal speech, gait not observed today, no dysmetria or dysdiadocokinesia. PSYCH: Normal mood, normal affect. SKIN: Warm, dry, no rashes or lesions noted Laboratory Results 10/24/18 10/24/18 05:30 05:30 WBC 8.5 RBC 3.87 L Hgb 11.9 Hct 36.2 MCV 93.5 MCH 30.8 MCHC 32.9 RDW 15.4 Plt Count 175 D MPV 9.1 Absolute Neuts (auto) 6.2 Neutrophils % 73.3 Lymphocytes % 18.6 Monocytes % 7.3 Eosinophils % 0.6 Basophils % 0.2 Nucleated RBC % 0 Sodium 138 Potassium 3.6 Chloride 104 Carbon Dioxide 28 Anion Gap 6 L BUN 7.0 Creatinine 0.8 Est GFR (CKD-EPI)AfAm 96.42 Est GFR (CKD-EPI)NonAf 83.19 Random Glucose 166 H Calcium 7.5 L Phosphorus 2.1 L Magnesium 1.4 L Total Bilirubin 0.7 AST 23 ALT 25 Alkaline Phosphatase 68 Total Protein 5.8 L Albumin 2.4 L Active Medications Generic Name Dose Route Start Last Admin Trade Name Freq PRN Reason Stop Dose Admin Albuterol Sulfate 1 amp 10/21/18 15:11 Ventolin 0.083% Nebulizer Soln - NEB Q6H PRN SHORT OF BREATH/WHEEZING Carvedilol 25 mg 10/22/18 10:00 10/23/18 21:11 Coreg - PO 25 mg BID PEREZ Administration Docusate Sodium 100 mg 10/21/18 15:06 Colace - PO DAILY PRN CONSTIPATION Docusate Sodium 100 mg 10/22/18 22:00 10/24/18 05:33 Colace - PO 100 mg TID PEREZ Administration Enalaprilat 2.5 mg 10/23/18 11:32 Vasotec Injection - IVPB Q6H-IV PRN HYPERTENSION Fentanyl 25 mcg 10/22/18 19:54 Sublimaze Injection - IVPUSH [id number] PRN PAIN-PACU ORDER X 4 DOSES ONLY Sodium Chloride 1,000 mls @ 50 mls/hr 10/21/18 03:30 10/24/18 05:22 Normal Saline - IV Not Given ASDIR PEREZ Potassium Chloride/Dextrose/Sod Cl 20 meq in 1,000 mls @ 75 mls/hr 10/23/18 01 :00 10/23/18 23:00 D5-1/2ns+20 Meq Kcl - IV 75 mls/hr ASDIR PEREZ Administration Latanoprost 1 drop 10/21/18 22:00 10/23/18 21:13 Xalatan 0.005% Eye Drops - OU 1 drop HS PEREZ Administration Levetiracetam 500 mg 10/21/18 22:00 10/23/18 21:10 Keppra - PO 500 mg BID PEREZ Administration Ondansetron HCl 4 mg 10/22/18 18:36 Zofran Injection IVPUSH Q6H PRN NAUSEA Ondansetron HCl 4 mg 10/22/18 19:54 Zofran Injection IVPUSH Q6H PRN NAUSEA AND/OR VOMITING Pantoprazole Sodium 40 mg 10/23/18 10:00 10/23/18 09:34 Protonix Iv IVPUSH 40 mg DAILY PEREZ Administration Thiamine HCl 200 mg 10/21/18 10:00 10/23/18 21:13 Vitamin B1 Injection - IVPB 200 mg BID PEREZ Administration ASSESSMENT/PLAN: POD1 evacuation of subdural hematoma Atrial fibrillation HTN Asthma Alcohol abuse --Pt tolerating PO at this point --Switched Thiamine and protonix to PO today --Continue Seizure ppx with Keppra 500mg BID PO --Goal for SBP <160 at this time --Enalapril IV PRN for SBP above 160 --Reordered home dose Nifedipine ER 60mg qdaily --Monitor drain output --Neurochecks --Monitor for withdrawal symptoms --Continue Thiamine supplementation FEN: Fluids: Tolerating PO Electrolyte abnoramlities: HypoMg, HypoPhosphatemia repleted today Nutrition: Continue Soft diet PPX: DVT - SCDs only GI - Protonix 40mg PO qdaily dispo: Pending neurosurgery approval can likely transfer to noncardiac tele Case discussed with Dr. Zak Flores, DO - IM PGY-3 Visit type - Emergency Visit Emergency Visit: Yes ED Registration Date: 10/21/18 Care time: The patient presented to the Emergency Department on the above date and was hospitalized for further evaluation of their emergent condition. - New Patient This patient is new to me today: No - Critical Care Critical Care patient: Yes Total Critical Care Time (in minutes): 35 Critical Care Statement: The care of this patient involved high complexity decision making to prevent further life threatening deterioration of the patient 's condition and/or to evaluate & treat vital organ system(s) failure or risk of failure.
[2018-10-24] MEDS ORDERED: NAPH,MB-DB/K PH,MBDB POWDER PACKET PO ONE (07:33)
[2018-10-24] MEDS ORDERED: MAGNESIUM SULF 50% (8.12 MEQ/2 ML-1 GM VIAL) IVPB ONE (07:34)
--- NOTE | 2018-10-24 07:40 | PN ---
Progress Note, Physician Chief Complaint: s/p craniotomy under general anesthesia for evacuation of subdural hematoma History of Present Illness: post op day two - Current Medication List Current Medications: Active Medications Albuterol Sulfate (Ventolin 0.083% Nebulizer Soln -) 1 amp NEB Q6H PRN PRN Reason: SHORT OF BREATH/WHEEZING Carvedilol (Coreg -) 25 mg PO BID [facility] Last Admin: 10/23/18 21:11 Dose: 25 mg Docusate Sodium (Colace -) 100 mg PO DAILY PRN PRN Reason: CONSTIPATION Docusate Sodium (Colace -) 100 mg PO TID [facility] Last Admin: 10/24/18 05:33 Dose: 100 mg Enalaprilat (Vasotec Injection -) 2.5 mg IVPB Q6H-IV PRN PRN Reason: HYPERTENSION Fentanyl (Sublimaze Injection -) 25 mcg IVPUSH [id number] PRN PRN Reason: PAIN-PACU ORDER X 4 DOSES ONLY Sodium Chloride (Normal Saline -) 1,000 mls @ 50 mls/hr IV ASDIR [facility] Last Admin: 10/24/18 05:22 Dose: Not Given Potassium Chloride/Dextrose/Sod Cl (D5-1/2ns+20 Meq Kcl -) 20 meq in 1,000 mls @ 75 mls/hr IV ASDIR [facility] Last Admin: 10/23/18 23:00 Dose: 75 mls/hr Latanoprost (Xalatan 0.005% Eye Drops -) 1 drop OU HS [facility] Last Admin: 10/23/18 21:13 Dose: 1 drop Levetiracetam (Keppra -) 500 mg PO BID [facility] Last Admin: 10/23/18 21:10 Dose: 500 mg Magnesium Sulfate (Magnesium Sulfate) 1 gm IVPB ONCE ONE Stop: 10/24/18 07:35 Ondansetron HCl (Zofran Injection) 4 mg IVPUSH Q6H PRN PRN Reason: NAUSEA Ondansetron HCl (Zofran Injection) 4 mg IVPUSH Q6H PRN PRN Reason: NAUSEA AND/OR VOMITING Pantoprazole Sodium (Protonix Iv) 40 mg IVPUSH DAILY [facility] Last Admin: 10/23/18 09:34 Dose: 40 mg Potassium Phos/Sodium Phos (Phos-Nak Packet -) 1 packet PO ONCE ONE Stop: 10/24/18 07:34 Thiamine HCl (Vitamin B1 Injection -) 200 mg IVPB BID [facility] Last Admin: 10/23/18 21:13 Dose: 200 mg - Objective Vital Signs: Vital Signs Temperature 98.4 F 10/23/18 22:00 Pulse Rate 75 10/24/18 06:00 Respiratory Rate 15 10/24/18 06:00 Blood Pressure 147/73 10/24/18 06:00 O2 Sat by Pulse Oximetry (%) 98 10/23/18 21:00 Constitutional: Yes: Well Nourished Cardiovascular: Yes: WNL Respiratory: Yes: WNL Gastrointestinal: Yes: WNL Labs: CBC, BMP 10/24/18 05:30 10/24/18 05:30 INR, PTT INR 1.26 (0.83-1.09) H 10/21/18 05:45 Assessment/Plan Patient doing well, pain controlled, no adverse effects of anesthetic, dept of anesthesia will sign off care at this time
--- NOTE | 2018-10-24 08:48 | PN ---
Physical Exam: SUBJECTIVE: : Patient seen and examined. Patient laying in bed flat. Pt denies CP, SOB, Fever, Chills, N/V/D OBJECTIVE: Vital Signs Period Temp Pulse Resp BP Sys/Romero Pulse Ox Last 24 Hr 98 F-98.7 F 75-104 12-24 132-195/69-118 98-98 GENERAL: The patient is awake, alert, and fully oriented, in no acute distress. HEAD: Drain in Place, with about 90cc Sanguineous fluid EYES: PERRL, extraocular movements intact, conjunctiva clear. No ptosis. ENT: Ears normal, nares patent, oropharynx clear without exudates, moist mucous membranes. NECK: Trachea midline, full range of motion, supple. LUNGS: Breath sounds equal, clear to auscultation bilaterally, no wheezes, no crackles HEART: Regular rate and rhythm, S1, S2 without murmur ABDOMEN: Soft, nontender, nondistended, normoactive bowel sounds, no guarding, no rebound EXTREMITIES: 2+ pulses, warm, well-perfused, no edema. NEUROLOGICAL: Normal speech, gait not observed. PSYCH: Normal mood, normal affect. SKIN: Warm, dry, normal turgor, no rashes or lesions noted Laboratory Results - last 24 hr 10/24/18 10/24/18 05:30 05:30 WBC 8.5 RBC 3.87 L Hgb 11.9 Hct 36.2 MCV 93.5 MCH 30.8 MCHC 32.9 RDW 15.4 Plt Count 175 D MPV 9.1 Absolute Neuts (auto) 6.2 Neutrophils % 73.3 Lymphocytes % 18.6 Monocytes % 7.3 Eosinophils % 0.6 Basophils % 0.2 Nucleated RBC % 0 Sodium 138 Potassium 3.6 Chloride 104 Carbon Dioxide 28 Anion Gap 6 L BUN 7.0 Creatinine 0.8 Est GFR (CKD-EPI)AfAm 96.42 Est GFR (CKD-EPI)NonAf 83.19 Random Glucose 166 H Calcium 7.5 L Phosphorus 2.1 L Magnesium 1.4 L Total Bilirubin 0.7 AST 23 ALT 25 Alkaline Phosphatase 68 Total Protein 5.8 L Albumin 2.4 L Active Medications Generic Name Dose Route Start Last Admin Trade Name Freq PRN Reason Stop Dose Admin Albuterol Sulfate 1 amp 10/21/18 15:11 Ventolin 0.083% Nebulizer Soln - NEB Q6H PRN SHORT OF BREATH/WHEEZING Carvedilol 25 mg 10/22/18 10:00 10/23/18 21:11 Coreg - PO 25 mg BID [facility] Administration Docusate Sodium 100 mg 10/21/18 15:06 Colace - PO DAILY PRN CONSTIPATION Docusate Sodium 100 mg 10/22/18 22:00 10/24/18 05:33 Colace - PO 100 mg TID [facility] Administration Enalaprilat 2.5 mg 10/23/18 11:32 Vasotec Injection - IVPB Q6H-IV PRN HYPERTENSION Fentanyl 25 mcg 10/22/18 19:54 Sublimaze Injection - IVPUSH [id number] PRN PAIN-PACU ORDER X 4 DOSES ONLY Sodium Chloride 1,000 mls @ 50 mls/hr 10/21/18 03:30 10/24/18 05:22 Normal Saline - IV Not Given ASDIR [facility] Potassium Chloride/Dextrose/Sod Cl 20 meq in 1,000 mls @ 75 mls/hr 10/23/18 01 :00 10/23/18 23:00 D5-1/2ns+20 Meq Kcl - IV 75 mls/hr ASDIR [facility] Administration Latanoprost 1 drop 10/21/18 22:00 10/23/18 21:13 Xalatan 0.005% Eye Drops - OU 1 drop HS [facility] Administration Levetiracetam 500 mg 10/21/18 22:00 10/23/18 21:10 Keppra - PO 500 mg BID [facility] Administration Ondansetron HCl 4 mg 10/22/18 18:36 Zofran Injection IVPUSH Q6H PRN NAUSEA Ondansetron HCl 4 mg 10/22/18 19:54 Zofran Injection IVPUSH Q6H PRN NAUSEA AND/OR VOMITING Pantoprazole Sodium 40 mg 10/23/18 10:00 10/23/18 09:34 Protonix Iv IVPUSH 40 mg DAILY [facility] Administration Thiamine HCl 200 mg 10/21/18 10:00 10/23/18 21:13 Vitamin B1 Injection - IVPB 200 mg BID [facility] Administration ASSESSMENT/PLAN: 83 year old male with a history of atrial fibrillation not on anticoagulation, hypertension, asthma, glaucoma, frequent falls and alcohol abuse presented to the hospital s/p fall and admitted for the treatment of chronic subdural hematoma with midline shift. S/P Craniotomy with SDH evacuation Chronic Subdural hematoma S.P craniotomy -Follow surgeons orders Cont Keppra PO Cont subdural drain for 24 hours HOB flat side to side q 2 hrs Keep SBP < 160, DBP < 90 Plan d/c drain today -Serial Neuro Checks Atrial fibrillation -atrial fibrillation, rate controlled -not on anticoagulation Hypertension -continue carvedilol 25 BID Asthma -Albuterol as needed Alcohol abuse -Continue Thaimine 200mg IVPB BID FEN -D5 - 1/2 NS with KCL -low sodium diet -replete lytes as necessary in AM Prophylaxis -SCDS, no chemoprophylaxis -colace for constipation Disposition -ICU monitoring,and transfer to floor is neurologically stable after drain dc'd - drain in place with 20cc output cont to monitor drain output Visit type - Emergency Visit Emergency Visit: Yes ED Registration Date: 10/21/18 Care time: The patient presented to the Emergency Department on the above date and was hospitalized for further evaluation of their emergent condition. - New Patient This patient is new to me today: Yes Date on this admission: 10/24/18 - Critical Care Critical Care patient: Yes Total Critical Care Time (in minutes): 40 Critical Care Statement: The care of this patient involved high complexity decision making to prevent further life threatening deterioration of the patient 's condition and/or to evaluate & treat vital organ system(s) failure or risk of failure.
[2018-10-24] MEDS: PANTOPRAZOLE SODIUM 40 MG VIAL IVPUSH SCH (09:23)
[2018-10-24] MEDS: levETIRAcetam 500 MG TABLET (FP) PO SCH ×2 (09:23→22:28)
[2018-10-24] MEDS: CARVEDILOL 25 MG TABLET (FP) PO SCH ×2 (09:23→22:27)
[2018-10-24] MEDS ORDERED: PT OWN MED DRAWER 7, Y5N ONE (09:29)
[2018-10-24] MEDS: THIAMINE HCL 200 MG/2 ML VIAL IVPB SCH ×2 (09:32→22:45)
--- NOTE | 2018-10-24 10:21 | PN ---
Teaching Attending Note Name of Resident: Yony Flores ATTENDING PHYSICIAN STATEMENT I saw and evaluated the patient. I reviewed the resident's note and discussed the case with the resident. I agree with the resident's findings and plan as documented. SUBJECTIVE: Patient seen and examined in the ICU. Awake and alert. LUND has resolved. No CP or SOB. No acute events overnight. OBJECTIVE: Intake & Output 10/21/18 10/22/18 10/23/18 10/24/18 23:59 23:59 23:59 23:59 Intake Total 400 2025 2630 900 Output Total 710 530 290 Balance 400 1315 2100 610 Weight 238 lb 1.588 oz 238 lb 243 lb 9.6 oz Last Vital Signs Temp Pulse Resp BP Pulse Ox 98.4 F 78 16 146/95 98 10/23/18 22:00 10/24/18 09:25 10/24/18 09:25 10/24/18 09:25 10/24/18 09:00 Active Medications Albuterol Sulfate (Ventolin 0.083% Nebulizer Soln -) 1 amp NEB Q6H PRN PRN Reason: SHORT OF BREATH/WHEEZING Carvedilol (Coreg -) 25 mg PO BID [facility] Last Admin: 10/24/18 09:23 Dose: 25 mg Docusate Sodium (Colace -) 100 mg PO DAILY PRN PRN Reason: CONSTIPATION Last Admin: 10/24/18 09:23 Dose: 100 mg Docusate Sodium (Colace -) 100 mg PO TID [facility] Last Admin: 10/24/18 05:33 Dose: 100 mg Enalaprilat (Vasotec Injection -) 2.5 mg IVPB Q6H-IV PRN PRN Reason: HYPERTENSION Fentanyl (Sublimaze Injection -) 25 mcg IVPUSH [id number] PRN PRN Reason: PAIN-PACU ORDER X 4 DOSES ONLY Sodium Chloride (Normal Saline -) 1,000 mls @ 50 mls/hr IV ASDIR [facility] Last Admin: 10/24/18 05:22 Dose: Not Given Latanoprost (Xalatan 0.005% Eye Drops -) 1 drop OU HS [facility] Last Admin: 10/23/18 21:13 Dose: 1 drop Levetiracetam (Keppra -) 500 mg PO BID [facility] Last Admin: 10/24/18 09:23 Dose: 500 mg Ondansetron HCl (Zofran Injection) 4 mg IVPUSH Q6H PRN PRN Reason: NAUSEA Ondansetron HCl (Zofran Injection) 4 mg IVPUSH Q6H PRN PRN Reason: NAUSEA AND/OR VOMITING Pantoprazole Sodium (Protonix -) 40 mg PO DAILY [facility] Thiamine HCl (Vitamin B1 -) 200 mg PO BID [facility] GENERAL: The patient is awake, alert, and fully oriented, in no acute distress. HEAD: drain in place EYES: PERRL, extraocular movements intact, sclera anicteric, conjunctiva clear. NECK: Trachea midline, full range of motion, supple. LUNGS: Breath sounds equal, clear to auscultation bilaterally, no wheezes, no crackles, no accessory muscle use. HEART: Regular rate and rhythm, S1, S2 without murmur, rub or gallop. ABDOMEN: Soft, nontender, nondistended, normoactive bowel sounds, no guarding, no rebound, no hepatosplenomegaly, no masses. EXTREMITIES: 2+ pulses, warm, well-perfused, no edema. NEUROLOGICAL: Cranial nerves II through XII grossly intact. Normal speech, gait not observed. Strength seems equal today. Sensation intact all over PSYCH: Normal mood, normal affect. SKIN: Warm, dry, normal turgor Laboratory Results - last 24 hr 10/24/10/24/18 05:30 05:30 WBC 8.5 RBC 3.87 L Hgb 11.9 Hct 36.2 MCV 93.5 MCH 30.8 MCHC 32.9 RDW 15.4 Plt Count 175 D MPV 9.1 Absolute Neuts (auto) 6.2 Neutrophils % 73.3 Lymphocytes % 18.6 Monocytes % 7.3 Eosinophils % 0.6 Basophils % 0.2 Nucleated RBC % 0 Sodium 138 Potassium 3.6 Chloride 104 Carbon Dioxide 28 Anion Gap 6 L BUN 7.0 Creatinine 0.8 Est GFR (CKD-EPI)AfAm 96.42 Est GFR (CKD-EPI)NonAf 83.19 Random Glucose 166 H Calcium 7.5 L Phosphorus 2.1 L Magnesium 1.4 L Total Bilirubin 0.7 AST 23 ALT 25 Alkaline Phosphatase 68 Total Protein 5.8 L Albumin 2.4 L ASSESSMENT/PLAN: POD #1 craniotmy and evacuation of a SDH History of atrial fibrillation not on anticoagulation Hypertension Asthma Glaucoma Frequent falls Alcohol abuse BP goal: Less than 160/90 Follow Neuro exam Close monitoring of Neuro exam Pain control Incentive Spirometry AEDs ICU monitoring for Neuro checks and drain monitoring Dr Crespo Critical care time spent in reviewing chart, evaluating patient and formulating plan - 36 minutes.
[2018-10-24] MEDS ORDERED: NIFEdipine E.R 60 MG TABLET (UD) PO SCH (10:45)
--- NOTE | 2018-10-24 13:09 | PN ---
Progress Note (short form) - Note Progress Note: NEUROSURGERY POD #2 No new complaint Minimal incisional pain; no sz, n/v In ICU Tmax 98.4, now 98, AF, BP better overall, VSS Drain- about 90 cc output Still somewhat sleepy, eyes open to command CN- intact; Motor- moving B UE/LE at least 4+/5, L hand dexterity improved; Sensation- intact LT Head CT- decreased R parietal SDH, less cortical mass effect, ventricles normal position, no midline shift Subdural fluid culture- negative to date S/p R parietal craniotomy for acute on chronic R SDH, CT improved Chronic EtOH use Cont Keppra PO OOB with PT Keep SBP < 160, DBP < 90 d/c drain after cleaning with betadine new head dressing applied Tx to floor care if neurologically stable after drain out Cont SCD's for DVT prophylaxis EtOH cessation encouraged
[2018-10-24] MEDS ORDERED: ALBUTEROL SO4 0.083% IH SOL 2.5 MG/3 ML VIAL.NEB. NEB PRN (21:30)
[2018-10-24] MEDS ORDERED: ONDANSETRON 4 MG/2 ML VIAL IVPUSH PRN (21:30)
[2018-10-24] MEDS ORDERED: ENALAPRILAT DIHYDRATE 2.5 MG/2 ML VIAL IVPB PRN (21:30)
[2018-10-24] MEDS ORDERED: THIAMINE HCL 100 MG TABLET (FP) PO SCH (22:00)
[2018-10-24] MEDS: THIAMINE HCL 100 MG TABLET (FP) PO SCH (22:28)
[2018-10-24] MEDS: MELATONIN 5 MG TABLETS PO PRN (22:28)
[2018-10-24] MEDS: LATANOPROST 0.005% OPHTH SOLN 2.5ML BOTTLE OU SCH (23:20)
[2018-10-25] MEDS: DOCUSATE SODIUM 100 MG CAPSULE (FP) PO SCH ×3 (05:04→21:28)
--- NOTE | 2018-10-25 07:56 | PN ---
Progress Note, Physician Chief Complaint: no complains of headache today History of Present Illness: Mr. Cobian is an 83 year old male with history of alcohol abuse, HTN, atrial fibrilation (not on a/c), asthma. Patient presented to the ED after a after a mechanical fall after consuming alcohol. Patient reports that he fell forward onto the stairs while climbing. He reports drinking wine or rum daily, 1-2 drinks, and drinks in the middle of the night and upon wakening. - Current Medication List Current Medications: Active Medications Albuterol Sulfate (Ventolin 0.083% Nebulizer Soln -) 1 amp NEB Q6H PRN PRN Reason: SHORT OF BREATH/WHEEZING Carvedilol (Coreg -) 25 mg PO BID [facility] Last Admin: 10/24/18 22:27 Dose: 25 mg Docusate Sodium (Colace -) 100 mg PO TID [facility] Last Admin: 10/25/18 05:04 Dose: 100 mg Enalaprilat (Vasotec Injection -) 2.5 mg IVPB Q6H-IV PRN PRN Reason: HYPERTENSION Latanoprost (Xalatan 0.005% Eye Drops -) 1 drop OU HS [facility] Last Admin: 10/24/18 23:20 Dose: 1 drop Levetiracetam (Keppra -) 500 mg PO BID [facility] Last Admin: 10/24/18 22:28 Dose: 500 mg Melatonin (Melatonin) 5 mg PO HS PRN PRN Reason: INSOMNIA Last Admin: 10/24/18 22:28 Dose: 5 mg Nifedipine (Procardia Xl -) 60 mg PO DAILY [facility] Ondansetron HCl (Zofran Injection) 4 mg IVPUSH Q6H PRN PRN Reason: NAUSEA Pantoprazole Sodium (Protonix -) 40 mg PO DAILY [facility] Thiamine HCl (Vitamin B1 -) 200 mg PO BID [facility] Last Admin: 10/24/18 22:28 Dose: 200 mg - Objective Vital Signs: Vital Signs Temperature 98.2 F 10/25/18 05:56 Pulse Rate 87 10/25/18 05:56 Respiratory Rate 18 10/25/18 05:56 Blood Pressure 108/62 10/25/18 05:56 O2 Sat by Pulse Oximetry (%) 96 10/24/18 21:00 Constitutional: Yes: Well Nourished, No Distress, Calm Eyes: Yes: WNL, Conjunctiva Clear, EOM Intact HENT: Yes: WNL, Atraumatic, Normocephalic Neck: Yes: WNL, Supple, Trachea Midline Cardiovascular: Yes: WNL, Regular Rate and Rhythm Respiratory: Yes: WNL, Regular, CTA Bilaterally Gastrointestinal: Yes: WNL, Normal Bowel Sounds, Soft Genitourinary: Yes: WNL Musculoskeletal: Yes: WNL Extremities: Yes: WNL Edema: No Peripheral Pulses WNL: Yes Integumentary: Yes: WNL Wound/Incision: Yes: Clean/Dry Neurological: Yes: WNL, Alert, Oriented ...Motor Strength: WNL Psychiatric: Yes: WNL, Alert, Oriented Labs: CBC, BMP 10/24/18 05:30 10/24/18 05:30 INR, PTT INR 1.26 (0.83-1.09) H 10/21/18 05:45 - ....Imaging Cat Scan: Report Reviewed (Head CT 10/22/18: right extra axial hypodense non hemorrhagic encapsulted collection is seen with internal enhancing septations, enhancing membrane along the superior convexity of the righ frontal lobe with cortical effacement.) Problem List - Problems (1) SDH (subdural hematoma) Assessment/Plan: POD #3 s/p crainotomy appreciate neurosurgery consultation c/w Keppra PO x 1 additional week maintain SBP < 160, DBP < 90 c/w Serial Neuro Checks Code(s): S06.5X9A - TRAUM SUBDR HEM W LOC OF UNSP DURATION, INIT (2) Atrial fibrillation Assessment/Plan: chronic AF, no anticoagulation at home c/w carvedilol, procardia, c/w telemetry monitoring Code(s): I48.91 - UNSPECIFIED ATRIAL FIBRILLATION (3) ETOH abuse Assessment/Plan: c/w thiamine start MVI, folate Code(s): F10.10 - ALCOHOL ABUSE, UNCOMPLICATED (4) Prophylactic measure Assessment/Plan: FEN diabetic diet no need for additional IVF monitor electrolytes c/w PPI DVT no chemical anticoagulation SCDs Dispo maintain as in patient full code discharge planning Code(s): Z29.9 - ENCOUNTER FOR PROPHYLACTIC MEASURES, UNSPECIFIED (5) Elevated troponin level Assessment/Plan: trop peaked at .11 no ischemic changes no need to further trend trop Code(s): R74.8 - ABNORMAL LEVELS OF OTHER SERUM ENZYMES (6) Asthma Assessment/Plan: duonebs prn incentive spirometry Code(s): J45.909 - UNSPECIFIED ASTHMA, UNCOMPLICATED Qualifiers: Asthma severity: mild intermittent Asthma complication type: uncomplicated Qualified Code(s): J45.20 - Mild intermittent asthma, uncomplicated (7) Hypertension Assessment/Plan: carvedilol, procardia, vasotec Code(s): I10 - ESSENTIAL (PRIMARY) HYPERTENSION Visit type - Emergency Visit Emergency Visit: Yes ED Registration Date: 10/21/18 Care time: The patient presented to the Emergency Department on the above date and was hospitalized for further evaluation of their emergent condition. - New Patient This patient is new to me today: Yes Date on this admission: 10/25/18 - Critical Care Critical Care patient: No - Discharge Referral Referred to [facility] No
[2018-10-25] MEDS ORDERED: MAGNESIUM OXIDE 400 MG TABLET (FP) PO ONE (08:15)
--- NOTE | 2018-10-25 08:39 | PN ---
Progress Note (short form) - Note Progress Note: NEUROSURGERY POD #3 No new complaint Minimal incisional pain; no sz, n/v Eating breakfast In telemetry Tmax 98.2, VSS Still somewhat sleepy, eyes open to command Incision C/D/I General- unremarkable CN- intact; Motor- moving B UE/LE at least 4+/5, L hand dexterity improved; Sensation- intact LT Head CT- decreased R parietal SDH, less cortical mass effect, ventricles normal position, no midline shift Subdural fluid culture- negative to date S/p R parietal craniotomy for acute on chronic R SDH, CT improved Chronic EtOH use Cont Keppra PO for one more week total OOB with PT Cont SCD's for DVT prophylaxis EtOH cessation encouraged VNS after discharge for safety and med monitoring
[2018-10-25 09:16] LABS: BASO % 0.5 % (0-2.0); EOS % 3.7 % (0-4.5); HEMATOCRIT 34.8 % (35.4-49); HEMOGLOBIN 11.4 GM/dL (11.7-16.9); LYMPH % 26.3 % (8-40); MCH 30.7 pg (25.7-33.7); MCHC 32.6 g/dl (32.0-35.9); MEAN CELL VOLUME 94.1 fl (80-96); MEAN PLT VOLUME 8.9 fl (7.5-11.1); MONO % 8.1 % (3.8-10.2); NEUT % 61.4 % (42.8-82.8); PLATELET COUNT 179 K/MM3 (134-434); RDW 15.4 % (11.9-15.9); WHITE BLOOD COUNT 6.5 K/mm3 (4.0-10.0)
[2018-10-25 09:36] LABS: ALBUMIN 2.4 g/dl (3.4-5.0); BILIRUBIN,TOTAL 0.6 mg/dL (0.2-1); BLOOD UREA NITROGEN 10.3 mg/dL (7-18); CREATININE 0.8 mg/dL (0.55-1.3); MAGNESIUM 1.8 mg/dL (1.8-2.4); PHOSPHOROUS 2.9 mg/dL (2.5-4.9); POTASSIUM 3.7 mmol/L (3.5-5.1); TOT PROT 5.7 g/dl (6.4-8.2)
[2018-10-25] MEDS ORDERED: PT OWN MED DRAWER 7, Y5N ONE (09:38)
[2018-10-25] MEDS: PANTOPRAZOLE 40 MG TABLET (FP) PO SCH (09:43)
[2018-10-25] MEDS: CARVEDILOL 25 MG TABLET (FP) PO SCH ×2 (09:43→21:24)
[2018-10-25] MEDS: levETIRAcetam 500 MG TABLET (FP) PO SCH ×2 (09:43→21:24)
[2018-10-25] MEDS: THIAMINE HCL 100 MG TABLET (FP) PO SCH ×2 (09:44→21:24)
[2018-10-25] MEDS: NIFEdipine E.R 60 MG TABLET (UD) PO SCH (09:44)
[2018-10-25] MEDS ORDERED: PANTOPRAZOLE 40 MG TABLET (FP) PO SCH (10:00)
[2018-10-25 10:01] LABS: INR 1.14 (0.83-1.09); PROTHROMBIN TIME (PATIENT) 13.5 SEC (9.7-13.0)
[2018-10-25] MEDS: MELATONIN 5 MG TABLETS PO PRN (21:24)
[2018-10-25] MEDS: LATANOPROST 0.005% OPHTH SOLN 2.5ML BOTTLE OU SCH (21:26)
[2018-10-26] MEDS: DOCUSATE SODIUM 100 MG CAPSULE (FP) PO SCH ×2 (05:20→14:43)
[2018-10-26 06:14] LABS: BASO % 0.6 % (0-2.0); EOS % 3.8 % (0-4.5); HEMATOCRIT 33.7 % (35.4-49); HEMOGLOBIN 11.2 GM/dL (11.7-16.9); LYMPH % 33.7 % (8-40); MCH 31.1 pg (25.7-33.7); MCHC 33.2 g/dl (32.0-35.9); MEAN CELL VOLUME 93.7 fl (80-96); MEAN PLT VOLUME 8.8 fl (7.5-11.1); MONO % 9.9 % (3.8-10.2); PLATELET COUNT 191 K/MM3 (134-434); RDW 15.2 % (11.9-15.9); WHITE BLOOD COUNT 5.6 K/mm3 (4.0-10.0)
[2018-10-26 06:48] LABS: ALBUMIN 2.4 g/dl (3.4-5.0); BILIRUBIN,TOTAL 0.4 mg/dL (0.2-1); BLOOD UREA NITROGEN 6.7 mg/dL (7-18); CALCIUM 8.3 mg/dL (8.5-10.1); CREATININE 0.7 mg/dL (0.55-1.3); MAGNESIUM 1.4 mg/dL (1.8-2.4); POTASSIUM 3.7 mmol/L (3.5-5.1); TOT PROT 5.8 g/dl (6.4-8.2)
--- NOTE | 2018-10-26 08:11 | PN ---
Progress Note (short form) - Note Progress Note: NEUROSURGERY POD #4 No new complaint Minimal incisional pain; no sz, n/v In telemetry Tmax 98.2, now 97.9, VSS Still somewhat sleepy, eyes open to command Incision C/D/I General- unremarkable CN- intact; Motor- moving B UE/LE at least 4+/5, L hand dexterity improved; Sensation- intact LT Head CT- decreased R parietal SDH, less cortical mass effect, ventricles normal position, no midline shift Subdural fluid culture- negative S/p R parietal craniotomy for acute on chronic R SDH, CT appearance improved Chronic EtOH use - EtOH cessation encouraged Cont Keppra PO for one more week total outpatient OOB with PT Stable from neurosurgical standpoint for d/c VNS after discharge for safety and med monitoring F/u PMD for DM/AFib after discharge
--- NOTE | 2018-10-26 08:38 | PN ---
Progress Note, Physician Chief Complaint: offers no complaints, awake alert, denies pain or headaches. no chest pain. denies any palpitations. eating breakfast, wants to go home History of Present Illness: Mr. Cobian is an 83 year old male with history of alcohol abuse, HTN, atrial fibrilation (not on a/c), asthma. Patient presented to the ED after a after a mechanical fall after consuming alcohol. Patient reports that he fell forward onto the stairs while climbing. He reports drinking wine or rum daily, 1-2 drinks, and drinks in the middle of the night and upon wakening. Head CT 10/22/18: right extra axial hypodense non hemorrhagic encapsulted collection is seen with internal enhancing septations, enhancing membrane along the superior convexity of the righ frontal lobe with cortical effacement. S/p R parietal craniotomy for acute on chronic R SDH - POD#4 - Current Medication List Current Medications: Active Medications Albuterol Sulfate (Ventolin 0.083% Nebulizer Soln -) 1 amp NEB Q6H PRN PRN Reason: SHORT OF BREATH/WHEEZING Carvedilol (Coreg -) 25 mg PO BID [facility] Last Admin: 10/25/18 21:24 Dose: 25 mg Docusate Sodium (Colace -) 100 mg PO TID [facility] Last Admin: 10/26/18 05:20 Dose: Not Given Enalaprilat (Vasotec Injection -) 2.5 mg IVPB Q6H-IV PRN PRN Reason: HYPERTENSION Folic Acid (Folic Acid -) 1 mg PO DAILY [facility] Latanoprost (Xalatan 0.005% Eye Drops -) 1 drop OU HS [facility] Last Admin: 10/25/18 21:26 Dose: 1 drop Levetiracetam (Keppra -) 500 mg PO BID [facility] Last Admin: 10/25/18 21:24 Dose: 500 mg Magnesium Sulfate (Magnesium Sulfate) 2 gm IVPB ONCE ONE Stop: 10/26/18 08:38 Melatonin (Melatonin) 5 mg PO HS PRN PRN Reason: INSOMNIA Last Admin: 10/25/18 21:24 Dose: 5 mg Multivitamins/Minerals/Vitamin C (Tab-A-Vit -) 1 tab PO DAILY [facility] Nifedipine (Procardia Xl -) 60 mg PO DAILY [facility] Last Admin: 10/25/18 09:44 Dose: 60 mg Ondansetron HCl (Zofran Injection) 4 mg IVPUSH Q6H PRN PRN Reason: NAUSEA Pantoprazole Sodium (Protonix -) 40 mg PO DAILY [facility] Last Admin: 10/25/18 09:43 Dose: 40 mg Thiamine HCl (Vitamin B1 -) 200 mg PO BID [facility] Last Admin: 10/25/18 21:24 Dose: 200 mg - Objective Vital Signs: Vital Signs Temperature 97.9 F 10/26/18 06:00 Pulse Rate 73 10/26/18 06:00 Respiratory Rate 20 10/26/18 06:00 Blood Pressure 134/69 10/26/18 06:00 O2 Sat by Pulse Oximetry (%) 96 10/25/18 21:00 Constitutional: Yes: Well Nourished, No Distress, Calm Eyes: Yes: WNL, Conjunctiva Clear HENT: Yes: Other (s/p crainiotomy) Cardiovascular: Yes: Pulse Irregular Respiratory: Yes: WNL, Regular Gastrointestinal: Yes: Normal Bowel Sounds, Soft ...Rectal Exam: Yes: Deferred Genitourinary: Yes: WNL Extremities: Yes: WNL Edema: No Integumentary: Yes: Other (s/p crainiotomy) Wound/Incision: Yes: Clean/Dry ...Motor Strength: WNL Psychiatric: Yes: WNL, Alert, Oriented Labs: CBC, BMP 10/26/18 05:40 10/26/18 05:40 INR, PTT INR 1.14 (0.83-1.09) H 10/25/18 08:50 Problem List - Problems (1) Abnormal head CT Code(s): R93.0 - ABNORMAL FINDINGS ON DX IMAGING OF SKULL AND HEAD, NEC (2) Atrial fibrillation Code(s): I48.91 - UNSPECIFIED ATRIAL FIBRILLATION (3) ETOH abuse Code(s): F10.10 - ALCOHOL ABUSE, UNCOMPLICATED (4) Elevated troponin level Code(s): R74.8 - ABNORMAL LEVELS OF OTHER SERUM ENZYMES (5) Frequent falls Code(s): R29.6 - REPEATED FALLS (6) Essential hypertension Code(s): I10 - ESSENTIAL (PRIMARY) HYPERTENSION (7) Prophylactic measure Code(s): Z29.9 - ENCOUNTER FOR PROPHYLACTIC MEASURES, UNSPECIFIED
[2018-10-26] MEDS ORDERED: MAGNESIUM SULF 50% (8.12 MEQ/2 ML-1 GM VIAL) IVPB ONE (08:45)
[2018-10-26] MEDS ORDERED: PT OWN MED DRAWER 7, Y5N ONE (09:21)
[2018-10-26] MEDS ORDERED: MULTIVITAMINS (DAILY MVI) TABLET (FP) PO SCH (10:00)
[2018-10-26] MEDS ORDERED: FOLIC ACID 1 MG TABLET (FP) PO SCH (10:00)
[2018-10-26] MEDS: levETIRAcetam 500 MG TABLET (FP) PO SCH (10:05)
[2018-10-26] MEDS: PANTOPRAZOLE 40 MG TABLET (FP) PO SCH (10:05)
[2018-10-26] MEDS: CARVEDILOL 25 MG TABLET (FP) PO SCH (10:05)
[2018-10-26] MEDS: NIFEdipine E.R 60 MG TABLET (UD) PO SCH (10:06)
[2018-10-26] MEDS: THIAMINE HCL 100 MG TABLET (FP) PO SCH (10:06)
--- NOTE | 2018-10-26 12:27 | DS ---
Physical Exam: SUBJECTIVE: Patient seen and examined at the bedside. He states that he feels well, denies any dizziness, visual defect or any other pain. no headaches. OBJECTIVE: patient for d/c home with VNS services. cleared by neurosurgery for d/c Vital Signs Period Temp Pulse Resp BP Sys/Romero Pulse Ox Last 24 Hr 97 F-98.2 F 66-76 18-20 115-135/68-95 96 PHYSICAL EXAM GENERAL: The patient is awake, alert, and fully oriented, in no acute distress. HEAD: s/p craniotomy EYES: PERRL, extraocular movements intact, sclera anicteric, conjunctiva clear. ENT: Ears normal, nares patent, oropharynx clear without exudates, moist mucous membranes. NECK: Trachea midline, full range of motion, supple. LUNGS: Breath sounds equal, clear to auscultation bilaterally HEART: irregular pulse ABDOMEN: Soft, nontender, nondistended, normoactive bowel sounds EXTREMITIES: no edema. NEUROLOGICAL: Normal speech, gait not observed. LABS Laboratory Results - last 24 hr 10/22/18 10/26/18 10/26/18 15:50 05:40 05:40 WBC 5.6 RBC 3.60 L Hgb 11.2 L Hct 33.7 L MCV 93.7 MCH 31.1 MCHC 33.2 RDW 15.2 Plt Count 191 MPV 8.8 Absolute Neuts (auto) 2.9 Neutrophils % 52.0 Lymphocytes % 33.7 D Monocytes % 9.9 Eosinophils % 3.8 Basophils % 0.6 Nucleated RBC % 0 Sodium 139 Potassium 3.7 Chloride 104 Carbon Dioxide 32 Anion Gap 3 L BUN 6.7 L Creatinine 0.7 Est GFR (CKD-EPI)AfAm 101.86 Est GFR (CKD-EPI)NonAf 87.88 Random Glucose 151 H Calcium 8.3 L Magnesium 1.4 L Total Bilirubin 0.4 AST 20 ALT 23 Alkaline Phosphatase 61 Total Protein 5.8 L Albumin 2.4 L Crossmatch See Detail HOSPITAL COURSE: Date of Admission:10/21/18 Date of Discharge: 10/26/18 Mr. Cobian is an 83 year old male with history of alcohol abuse, HTN, atrial fibrilation (not on a/c), asthma. Patient presented to the ED after a after a mechanical fall after consuming alcohol. Patient reports that he fell forward onto the stairs while climbing. He reports drinking wine or rum daily, 1-2 drinks, and drinks in the middle of the night and upon wakening. Head CT 10/22/18: right extra axial hypodense non hemorrhagic encapsulted collection is seen with internal enhancing septations, enhancing membrane along the superior convexity of the righ frontal lobe with cortical effacement. 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 Patient is cleared for d/c home by neurosurgery to be followed as an outpatient. Minutes to complete discharge: 60 Discharge Summary Reason For Visit: ELEVATED TROPONIN LEVEL Current Active Problems Abnormal head CT (Acute) Atrial fibrillation (Acute) ETOH abuse (Acute) Hypertension (Acute) Prophylactic measure (Acute) SDH (subdural hematoma) (Acute) Elevated troponin level (Chronic) Frequent falls (Chronic) Condition: Improved - Instructions Diet, Activity, Other Instructions: Post-op Instructions Diet: Regular Activity:May shower but keep incision line dry. Restrictions: Do not lift anything over 10lbs. Light activity only. Additional Instructions: Keep incision line clean and dry. Change dressing daily. Report any chills, seizure fever (100 or greater), any wound drainage, or any neurological changes to Dr. Mandel. Initial postop appt: Call Dr Mandel's office to be seen next Thursday for suture removal ; f/u PMD for BP/Afib Medications: Continue all of your home medications. You will be on Keppra 500mg TWICE per day for 1 more week. Keppra is a medication that was started in the hospital after your procedure. What is Keppra for? Keppra is an anti-seizure medications that has been started for prevention of seizures. Continue taking it for another 7 days - TWICE daily. We will also be sending you home on Magensium 400mg tablets once daily and Folic acid once daily. Follow up with your primary and have your magnesium levels repeated. Thank you for allowing us to care for you. Disposition: VNS/HOME HEALTH CARE - Home Medications Comprehensive Discharge Medication List: Ambulatory Orders Bimatoprost [Lumigan] 1 drop OU HS 04/14/16 Levalbuterol Tartrate [Xopenex Hfa] 15 gm IH DAILY 09/02/17 Carvedilol [Coreg -] 25 mg PO BID #60 tablet 09/06/17 Docusate Sodium [Colace -] 100 mg PO DAILY PRN #30 capsule 09/06/17 Nifedipine [Nifedipine ER] 60 mg PO DAILY 10/02/18 Folic Acid - 1 mg PO DAILY #60 tablet 10/26/18 Magnesium Oxide [Mag-Ox -] 400 mg PO DAILY #30 tablet 10/26/18 levETIRAcetam [Keppra -] 500 mg PO BID #14 tablet 10/26/18 Problem List - Problems (1) Abnormal head CT Assessment/Plan: 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 pt is awake and alert. cleared for d/c by neurosurgery. Code(s): R93.0 - ABNORMAL FINDINGS ON DX IMAGING OF SKULL AND HEAD, NEC (2) Atrial fibrillation Assessment/Plan: rate controlled on coreq Patient is not on any a/c at home Code(s): I48.91 - UNSPECIFIED ATRIAL FIBRILLATION (3) ETOH abuse Assessment/Plan: continue thiamine and folic acid completed detox Code(s): F10.10 - ALCOHOL ABUSE, UNCOMPLICATED (4) Elevated troponin level Assessment/Plan: no chest pain, evaluated by cardiology Code(s): R74.8 - ABNORMAL LEVELS OF OTHER SERUM ENZYMES (5) Frequent falls Assessment/Plan: physical therapy evaluated. pt to be d/c with home services. Code(s): R29.6 - REPEATED FALLS (6) Essential hypertension Assessment/Plan: BP controlled patient on coreq BID Code(s): I10 - ESSENTIAL (PRIMARY) HYPERTENSION (7) Prophylactic measure Assessment/Plan: Code(s): Z29.9 - ENCOUNTER FOR PROPHYLACTIC MEASURES, UNSPECIFIED This patient is new to me today: Yes Date on this admission: 10/26/18 Emergency Visit: No Critical Care patient: No - Discharge Referral Referred to [facility] No
[2018-10-26 15:35] VITALS: BP 126/72; PULSE 74; TEMP 98.1
--- NOTE | 2018-10-26 17:09 | PATH ---
Cytology Non-Gynecological Report Patient Name: EVELYN ARCOS Med. Rec. #: [id number] /Age/Gender: 1935 (Age: 83) / M Account: [id number] Location: 4 PEDS/ADOL Taken: 10/22/2018 Received: 10/25/2018 Reported: 10/26/2018 Physicians: Willian Rasheed M.D. Specimen(s) Received SUBDURAL FLUID Clinical History Subdural hematoma Final Diagnosis SUBDURAL FLUID FOR CYTOLOGY: SATISFACTORY FOR EVALUATION . NEGATIVE FOR MALIGNANT CELLS. PREDOMINANTLY COMPRISED OF BLOOD WITH RARE MACROPHAGES. Comment: See concurrent material ([id number]). Electronically Signed Yelena Obando M.D. Gross Description Approximately 5 cc of dark brown fluid received fresh. One cytofunnel prepared and Pap stained. One cellblock prepared.
--- NOTE | 2018-10-26 17:14 | PATH ---
Surgical Pathology Report Patient Name: EVELYN ARCOS Med. Rec. #: [id number] /Age/Gender: 1935 (Age: 83) / M Account: [id number] Location: 4 SO PEDS/ADOL Taken: 10/22/2018 Received: 10/25/2018 Reported: 10/26/2018 Physicians: Willian Rasheed M.D. Specimen(s) Received SUBDURAL MEMBRANE Clinical History Subdural hematoma Final Diagnosis SUBDURAL MEMBRANE, CRANIOTOMY FOR EVACUATION OF HEMATOMA AND EXCISION OF SUBDURAL MEMBRANE: BENIGN FIBROMEMBRANOUS TISSUE WITH CHRONIC INFLAMMATION, HEMOSIDERIN-LADEN MACROPHAGES INFILTRATE WITH ASSOCIATED BLOOD/FIBRIN CLOT. Comment: See concurrent material ([id number]). Electronically Signed Yelena Obando M.D. Gross Description Received in formalin labeled "subdural membrane," is a 2.8 x 2.5 x 0.2 cm castañeda-brown portion of membranous tissue with focal attached blood clot. Tank Stave [employer]er sections are submitted in one cassette. /10/25/2018 [facility]10/25/2018
== END 2018-10-26 17:01 | disposition home health service (06) | DRG 27 ==
LOC: JER 22:07 → JERBED 10-21 02:21 → J2W 10-21 16:59 → JICU 10-22 15:00 → J4S 10-24 21:22
PROVIDERS: ADMIT Internal Medicine; ATTEND Nurse Practitioner Family
PROC: 009400Z Drainage of Intracranial Subdural Space with Drainage Device, Open Approach (ICD-10-PCS; 2018-10-22)
PROC: 00C40ZZ Extirpation of Matter from Intracranial Subdural Space, Open Approach (ICD-10-PCS; principal; 2018-10-22 12:30)
DX: S06.5X0A Traumatic subdural hemorrhage without loss of consciousness, initial encounter (principal); F10.10 Alcohol abuse, uncomplicated; I48.91 Unspecified atrial fibrillation; R74.8 Abnormal levels of other serum enzymes; I10 Essential (primary) hypertension; I44.0 Atrioventricular block, first degree; F03.90 Unspecified dementia, unspecified severity, without behavioral disturbance, psychotic disturbance, mood disturbance, and anxiety; M50.321 Other cervical disc degeneration at C4-C5 level; E66.9 Obesity, unspecified; R29.6 Repeated falls; Z96.651 Presence of right artificial knee joint; Z68.35 Body mass index [BMI] 35.0-35.9, adult; I25.10 Atherosclerotic heart disease of native coronary artery without angina pectoris; I73.89 Other specified peripheral vascular diseases; H40.9 Unspecified glaucoma; W17.89XA Other fall from one level to another, initial encounter; Y92.098 Other place in other non-institutional residence as the place of occurrence of the external cause; E88.09 Other disorders of plasma-protein metabolism, not elsewhere classified; R73.03 Prediabetes
CPT/HCPCS: 36415; 70450-TC; 70460-TC; 71046-TC-FY; 72125-TC; 72170-TC-FY; 80048; 80053; 80307; 81003; 82550; 82553; 82962; 83735; 84100; 84484; 85025; 85027; 85610; 85730; 86850; 86900; 86901; 86922; 87070; 87086; 87205; 88108; 88305-TC; 93005; 93010; 94760; 97116-GP; 97161-GP; 99285-25; J7030

== ENCOUNTER 2018-12-09 09:12 | Inpatient (IN) | payer OTHER ==
--- NOTE | 2018-12-09 10:24 | PDOC ---
History of Present Illness - General Chief Complaint: Weakness Stated Complaint: Weakness Time Seen by Provider: 12/09/18 10:19 - History of Present Illness Initial Comments: 12/09/18 14:05 83yo M hx HTN, borderline DM, EtOH abuse, COPD (not on home O2), Afib (not on a/ c), asthma, and R parietal craniotomy on 10/21/18 (for acute on chronic SDH) BIBA c/o 3 days of weakness, lightheadedness, N/V, diarrhea, and suprapubic abdominal pain. Pt felt fine since the surgery. Pt is still drinking EtOH, endorses 1 beer per night. Pt is a poor historian. Pt c/o 3 days of anorexia, watery NB diarrhea (8x just last night), lightheadedness intermittent nonvertiginous nothing makes better/worse caused him to fall 2x last night but denies head injury or LOC or other injuries, suprapubic pain b/l intermittent tender type 5/10 better with peptobismol, increased frequency of urination, and N/V (2x last night, NBNB). Endorses chronic back pain of unknown duration, unchanged recently. Endorses chronic SOB due to COPD, unchanged. Endorses DVTs b /l in feet/calves that pt states were never treated. Pt states he had similar sx a few months ago and was admitted at [facility] for a week for dehydration. Denies fever, chills, headache, vertigo, numbness/tingling, focal weakness, vision changes, new shortness of breath, cough, chest pain, palpitations, leg swelling, blood in stool, constipation, dysuria, hematuria, confusion. Pt's states pt's mental status is unchanged from baseline. Past History - Past Medical History Allergies/Adverse Reactions: Allergies Allergy/AdvReac Type Severity Reaction Status Date / Time No Known Allergies Allergy Verified 12/09/18 17:12 Home Medications: Ambulatory Orders Bimatoprost [Lumigan] 1 drop OU HS 04/14/16 Levalbuterol Tartrate [Xopenex Hfa] 15 gm IH DAILY 09/02/17 Carvedilol [Coreg -] 25 mg PO BID #60 tablet 09/06/17 Nifedipine [Nifedipine ER] 60 mg PO DAILY 10/02/18 Folic Acid - 1 mg PO DAILY #60 tablet 10/26/18 Fluticasone/Vilanterol [Breo Ellipta 100-25 Mcg INH] 1 each IH DAILY 12/09/18 Magnesium Oxide 400 mg PO DAILY 12/09/18 Anemia: No Asthma: Yes (ON ALBUTEROL INHALER) Cancer: No Cardiac Disorders: No CVA: No COPD: No CHF: No DVT: Yes (Right leg) Dementia: No Diabetes: Yes GI Disorders: No Disorders: No HTN: Yes Hypercholesterolemia: No Kidney Stones: No Liver Disease: No Seizures: No Thyroid Disease: No Other medical history: ETOH abuse - Surgical History Neurologic Surgery: Yes (R frontal craniotomy, subdural hematoma) Orthopedic Surgery: Yes (RIGHT KNEE REPLACEMENT IN 2006) - Reproductive History Testicular Surgery: No - Immunization History Td Vaccination: Yes TDAP Vaccination: Yes Immunization Up to Date: Yes - Suicide/Smoking/Psychosocial Hx Smoking History: Never smoked Have you smoked in the past 12 months: No If you are a former smoker, when did you quit?: 1973 Hx Alcohol Use: No Drug/Substance Use Hx: No Substance Use Type: Alcohol Hx Substance Use Treatment: No Review of Systems - Review of Systems Comments:: 12/09/18 14:05 Constitutional: Positive for generalized weakness. Negative for chills, fever, fatigue. HENT: Negative for sore throat, rhinorrhea, congestion. Eyes: Negative for visual disturbance. Respiratory: Positive for shortness of breath (chronic). Negative for cough, and wheezing. Cardiovascular: Negative for chest pain, palpitations, and leg swelling. Gastrointestinal: Positive for suprapubic b/l pain, anorexia, diarrhea, nausea, and vomiting. Negative for blood in stool, constipation. Genitourinary: Positive for increased frequency of urination. Negative for dysuria, flank pain, and hematuria. Musculoskeletal: Positive for back pain (chronic). Negative for myalgias and neck pain. Skin: Negative for rash. Neurological: Positive for light-headedness and falls. Negative for vertigo, syncope, focal weakness, numbness and headaches. Psychiatric/Behavioral: Negative for behavioral problems and confusion. *Physical Exam - Vital Signs Last Vital Signs Temp Pulse Resp BP Pulse Ox 98.3 F 102 H 18 143/76 98 12/09/18 09:13 12/09/18 09:13 12/09/18 09:13 12/09/18 09:13 12/09/18 09:13 - Physical Exam Comments: 12/09/18 14:05 Gen: Alert, NAD, comfortable-appearing. HEENT: PERRL, EOMI, MMM, NCAT. No conjunctival pallor. Sclera are non-icteric. CV: Regular rate and rhythm. No murmurs, rubs, or gallops. PULM: No resp distress. CTAB, no wheezes, rales, or rhonchi. ABD: +b/l suprapubic TTP, soft, ND, no rebound tenderness or guarding, no CVA tenderness. BACK: No TTP of c/t/l-spine. No step-offs or deformities. MSK: No bony deformities. 2+ pulses in all extremities. NEURO: AAOx3. PERRL. CN 2-12 intact. 5/5 strength in all extremities. Sensation to light touch intact in all extremities. No pronator drift. No dysmetria. No dysdiadochokinesia. No abnormal nystagmus. Normal gait. +asterixis. EXTREMITIES: No cyanosis. No clubbing. No edema. No calf tenderness. PSYCH: Poor historian, poor eye contact, tangential responses. SKIN: Warm and dry. Normal capillary refill. No rashes. No jaundice. Heart Score/ECG Review - ECG Impressions Comment:: 12/09/18 14:05 EKG at 0919: sinus tachycardia with occasional PVCs and fusion complexes, 103bpm , QTc 476ms, normal axis, no TWIs, no ST elevations or depressions. When compared with 10/22/18, fusion complexes are now present. ED Treatment Course - LABORATORY CBC & Chemistry Diagram: 12/10/18 05:41 12/10/18 05:41 Medical Decision Making - Medical Decision Making 12/09/18 14:05 83yo M hx HTN, borderline DM, EtOH abuse, COPD (not on home O2), Afib (not on a/ c), asthma, and R parietal craniotomy on 10/21/18 (for acute on chronic SDH) BIBA c/o 3 days of weakness, lightheadedness, N/V, diarrhea, and suprapubic abdominal pain. Pt felt fine since the surgery. Pt is still drinking EtOH, endorses 1 beer per night. Pt is a poor historian. Pt c/o 3 days of anorexia, watery NB diarrhea (8x just last night), lightheadedness intermittent nonvertiginous nothing makes better/worse caused him to fall 2x last night but denies head injury or LOC or other injuries, suprapubic pain b/l intermittent tender type 5/10 better with peptobismol, increased frequency of urination, and N/V (2x last night, NBNB). Endorses chronic back pain of unknown duration, unchanged recently. Endorses chronic SOB due to COPD, unchanged. Endorses DVTs b /l in feet/calves that pt states were never treated. Pt states he had similar sx a few months ago and was admitted at [facility] for a week for dehydration. Denies fever, chills, headache, vertigo, numbness/tingling, focal weakness, vision changes, new shortness of breath, cough, chest pain, palpitations, leg swelling, blood in stool, constipation, dysuria, hematuria, confusion. Hemodynamically stable with mild tachycardia 102, afebrile, neurologically intact, +b/l suprapubic TTP. POCUS showed post-void bladder volume 1.1L. Due to lightheadedness, hx of falls, and hx of R parietal craniotomy, consider dehydration, anemia, metabolic derangement, infection, cardiac pathology, intracranial pathology, or alcohol intoxication - r/o with labs, EKG, CXR, CTH, and UA/UC. Due to suprapubic pain and diarrhea, consider and evaluate for GI pathology (such as colitis, diverticulitis) vs pathology (such as urinary obstruction, UTI, kidney stone) with labs and CTAP. -EKG -CBC, CMP, Cardiac profile, Ammonia, Lipase, Coags, Alcohol, UA/UC -CXR, CTAP, CTH -1L IVF slow (EF 60% last echo) -Pepcid -Porras catheter for urine retention -Dispo: pending w/u EKG at 0919: sinus tachycardia with occasional PVCs and fusion complexes, 103bpm , QTc 476ms, normal axis, no TWIs, no ST elevations or depressions. When compared with 10/22/18, fusion complexes are now present. Labs reviewed. Of note, Na 133, Cr 1.6 (baseline 0.7), BUN 19.8, Ammonia 48.8, Trop 0.15 (baseline 0.11-0.2 always), CK 410, CKI 1.7, CK-MB 7.1 (last 4.4 ). CTH reviewed - no acute pathology CXR reviewed - no acute pathology Pending read CTAP and urine. Admit for QUE. 12/09/18 15:22 CTAP: small calcific densities in pancreatic head likely on basis of chronic pancreatitis. Tiny gallstones without sonographic evidence of acute cholecystitis. Mild L renal hydronephrosis and hydroureter likely due to over distended urinary bladder without gross evidence of an obstructing ureteral stone. Overdistended urinary bladder approx 18.5cm in craniocaudal length. No evidence SBO. Collapse/nondistended colon w/o gross wall thickening. Porras catheter inserted, 1.5L dark yellow/brown urine drained. MBMD sent. 12/09/18 15:[address] Cary. *DC/Admit/Observation/Transfer Diagnosis at time of Disposition: QUE (acute kidney injury), Urine retention - Discharge Dispostion Condition at time of disposition: Stable Decision to Admit order: Yes - Referrals - Patient Instructions - Post Discharge Activity
[2018-12-09] MEDS ORDERED: SODIUM CHLORIDE 0.9% 500 ML INFUS.BAG IV ONE (10:55)
[2018-12-09] MEDS ORDERED: FAMOTIDINE 20 MG/50 ML IVPB 20 MG/50 ML MG IVPB ONE ×2 (11:16→11:40)
[2018-12-09 12:01] LABS: BASO % 0.6 % (0-2.0); EOS % 0.9 % (0-4.5); HEMATOCRIT 38.8 % (35.4-49); LYMPH % 19.1 % (8-40); MCH 29.3 pg (25.7-33.7); MCHC 33.5 g/dl (32.0-35.9); MEAN CELL VOLUME 87.5 fl (80-96); MEAN PLT VOLUME 8.8 fl (7.5-11.1); MONO % 8.9 % (3.8-10.2); NEUT % 70.5 % (42.8-82.8); PLATELET COUNT 297 K/MM3 (134-434); RBC 4.44 M/mm3 (4.00-5.60); RDW 15.4 % (11.9-15.9); WHITE BLOOD COUNT 7.4 K/mm3 (4.0-10.0)
--- NOTE | 2018-12-09 12:01 | PDOC ---
Attending Attestation - Resident Resident Name: Lauryn Huang - ED Attending Attestation I have performed the following: I have examined & evaluated the patient, The case was reviewed & discussed with the resident, I agree w/resident's findings & plan, Exceptions are as noted - HPI HPI: 12/09/18 12:03 83y M hx of htn, etoh abuse, hx of craniotomy for evacuaion of SDH, afib (off a/ c), presents with n/v/d, sp fall x 2 yesterday without head injury Pt has been having 3 days of generalized weakness, lightheadedeness, non bloody wtery diarrhea, suprapubic abd pain associated nbnb vomiting pt states he felt lightheaded last night that led him to fall but denies head injury/loc. pt denies any cp, sob, f/c, dysruria, focal numnbess/tingling/ weakness, vision changes, melena, bpr. exam: no acute distress card: irregular, no mrg pulmL cta b/l abd: moderate suprapubic tenderness, +distended, no cva tenderness ddx - uti, pyelo, obstruction cthead to r/o bleed from fall 12/09/18 18:24 pts labs reviewed noted for elevated cr to 1.6 up from baseline pt received a meza withoutput of significant urine with relief of his pain ct abd noted nly for distended bladder with mil dleft renalhydronephorsis. there is mild stranding in pancreas that may benefit from further evalution pt will be admitted for further management of his jakob and obstruction - Physicial Exam PE: 12/11/18 11:27 see abocve - Medical Decision Making 12/11/18 11:27 see above
[2018-12-09 12:14] LABS: INR 1.23 (0.83-1.09); PROTHROMBIN TIME (PATIENT) 14.5 SEC (9.7-13.0)
[2018-12-09 12:17] LABS: ACTIVATED PTT 31.7 SECONDS (25.2-36.5)
--- NOTE | 2018-12-09 12:25 | EKG ---
Test Reason : Blood Pressure : / mmHG Vent. Rate : 103 BPM Atrial Rate : 103 BPM P-R Int : 198 ms QRS Dur : 092 ms QT Int : 364 ms P-R-T Axes : 049 -10 067 degrees QTc Int : 476 ms SINUS TACHYCARDIA WITH OCCASIONAL PREMATURE VENTRICULAR COMPLEXES AND FUSION COMPLEXES MODERATE VOLTAGE CRITERIA FOR LVH, MAY BE NORMAL VARIANT BORDERLINE ECG WHEN COMPARED WITH ECG OF 22-OCT-2018 10:33, FUSION COMPLEXES ARE NOW PRESENT CRITERIA FOR SEPTAL INFARCT ARE NO LONGER PRESENT Confirmed by JULIO ROSA MD ([id number]) on 12/09/2018 12:24:45 PM Referred By: Confirmed By:JULIO ROSA MD
[2018-12-09 12:30] LABS: ALBUMIN 3.2 g/dl (3.4-5.0); BILIRUBIN,TOTAL 1.5 mg/dL (0.2-1); BLOOD UREA NITROGEN 19.8 mg/dL (7-18); CALCIUM 8.9 mg/dL (8.5-10.1); CREATININE 1.6 mg/dL (0.55-1.3); POTASSIUM 3.8 mmol/L (3.5-5.1); TOT PROT 7.2 g/dl (6.4-8.2)
[2018-12-09] MEDS ORDERED: PROCHLORPERAZINE INJECTION 10 MG/2 ML VIAL IVPB PRN (17:03)
[2018-12-09] MEDS ORDERED: TAMSULOSIN HCL 0.4 MG CAP PO SCH (17:30)
--- NOTE | 2018-12-09 17:33 | PN ---
Teaching Attending Note Name of Resident: Shannon Hoffman ATTENDING PHYSICIAN STATEMENT I saw and evaluated the patient. I reviewed the resident's note and discussed the case with the resident. I agree with the resident's findings and plan as documented. CC: Nausea/diarrhea/ fall . poor historian HPI: 83 y/o man with h/o A fib, COPD, recent craniotomy for ICH, CAD s/p inferior infarct, ETOH dependence, HTN and other medical problem who presented with nausea, diarrhea, and s/p fall. patient was doing well until he started having diarrhea 2 days ago, with no abdominal pain or fever. diarrhea is non bloody and stool is loose. He reported nause but no vomiting. He denies any urinary sx or urinary incontinence. last night he was trying to sit on a chair while it was dark, and he missed it and fell on his buttocks. No head trauma. he denies any cp , abd pain, extremities pain, or SOB. he reports feeling dizzy with standing ( light headed ), but he did not have dizziness before his fall last night. He is trying to cut down on alcohol intake, and drinks a couple beers a day and wine when he goes out . reported to resident, last drink last night, but to me he denied it OBJECTIVE: NAD. awake,alert, cooeprative. HEENT: slightly dry MM. tongue at mid line. no facial droop. no LAP in neck CV; RRR, no MRG Lungs: CTAB Abd: obese, soft, NT, ND , NL BS . meza in with yellow pinkish urine Ext : scarring and dry skin on lower legs and feet. DP 2+ b/l. no ulcers on feet. trace LE edema. Upper extremities with no edema or erythema , 2+ RP b/l NEuro: EOMI, L pupil is deformed. R pupil is round 2 mm and reactive to light . no facial droop. tongue at mid line. strength 5/5 in upper and lower extremities proximally and distally. sensation to light touch is normal. reflexes 1+ biceps and knee jerk b/l Rectal exam by resident. with firm non enlarged prostate. EKG : sinus rhythm. J point elevation in V1, 2. qtc 476. fusion beats. CT of abd//pelvis showed distended bladder, with L hydronephrosis and hydroureter. head of the pancreas calcifications. ASSESSMENT AND PLAN: 83 y/o man with h/o A fib, COPD, recent craniotomy for ICH, CAD s/p inferior infarct, ETOH dependence, HTN and other medical problem who presented with nausea, diarrhea, and s/p fall. he was found to have QUE, and slightly elevated trop 1- Mechanical fall: no syncope. obtain xray of hips/pelvis head CT with no new pathology 2- QUE: likely due to post renal due to urinary retention - cont meza - start flomax - voiding trial later - need urology eval after dc - needs repeat US of kidneys to evaluate hydro - obtain US of bladder to evaluate prostate size - UA pending - gentle hydration 3-Slight hypertroponinemia: No PC . EKG with no acute ischemic changes. Ckmb < 5 % of total. stress test in 09/21 showed no induced ischemia but fixed inferiolateral defect. - repeat trop. if going down, then will do no further cardiac w/u and admit to [facility] 4- slight elevation in LFTs , likley due to alcohol use . No RUQ tenderness. CT with tiny stones but no obstruction 5- ETOH dependence. No evidence of withdrawal. will monitor. 6- Diarrhea: benign abd exam . stool cx. gentle hydration . c diff 7- Prolonged QTC: avoid prolonging agents. avoid zofran and give compazine fro nausea. 8- HTN : cont coreg and nifedipine DVT PX : heparin SQ
--- NOTE | 2018-12-09 17:50 | HP ---
CHIEF COMPLAINT: Diarrhea with nausea and s/p mechanical fall. PCP: Dr. Chery HISTORY OF PRESENT ILLNESS: Mr. Cobian is an 83 year old man with a past medical history of alcohol use disorder, HTN, afib (not A/C), COPD, asthma, and s/p craniotomy in October 2018 at [facility] for evacuation of [facility]. The patient is a somewhat poor historian and was unable to give a complete past medical history but could give an HPI. The patient reports that he has been needing to use the bathroom a lot recently due to profusely watery diarrhea and frequent urination. The patient denies any burning on urination, urinary retention. The patient also reports that last night he got up to use the bathroom and on walking back to a chair in his dark room, he went to have a seat, but missed the chair and ended up falling down on his bottom to the floor. The patient denies any residual pain or discomfort in his hips or pelvis. Patient states he got himself back into bed a few minutes later and continued to have diarrhea overnight. He called his son this morning because the diarrhea continued. ER course was notable for: (1) QUE noted with a Cr of 1.6 (2) EKG with sinus tachycardia and PVCs, also with new fusion complexes noted on read (3) POC U/S in the ED which showed post void bladder volume of 1.1L Recent Travel: none PAST MEDICAL HISTORY: per ED note/ patient chart as patient is a poor historian alcohol use disorder HTN afib (not A/C) COPD asthma PAST SURGICAL HISTORY: - Craniotomy in October 2018 at [facility] for evacuation of SDH. - R knee replacement in 2005 Social History: Smoking: former smoker, quit in the 1970s Alcohol: drinks daily, 1-2 beers per day Drugs: denies Family History: mother- HTN Allergies- NKDA No Known Allergies Allergy (Verified 12/09/18 17:12) HOME MEDICATIONS: Home Medications Medication Instructions Recorded Bimatoprost [Lumigan] 1 drop OU HS 04/14/16 Levalbuterol Tartrate [Xopenex Hfa] 15 gm IH DAILY 09/02/17 Carvedilol [Coreg -] 25 mg PO BID #60 tablet 09/06/17 Nifedipine [Nifedipine ER] 60 mg PO DAILY 10/02/18 Folic Acid - 1 mg PO DAILY #60 tablet 10/26/18 Fluticasone/Vilanterol [Breo 1 each IH DAILY 12/09/18 Ellipta 100-25 Mcg INH] Magnesium Oxide 400 mg PO DAILY 12/09/18 REVIEW OF SYSTEMS CONSTITUTIONAL: chills, generalized weakness, Absent: fever, diaphoresis, malaise, loss of appetite, weight change HEENT: blurry vision Absent: rhinorrhea, nasal congestion, throat pain, throat swelling, difficulty swallowing, mouth swelling, ear pain, eye pain, visual changes CARDIOVASCULAR: Absent: chest pain, syncope, palpitations, irregular heart rate, lightheadedness , peripheral edema RESPIRATORY: Absent: cough, shortness of breath, dyspnea with exertion, orthopnea, wheezing, stridor, hemoptysis GASTROINTESTINAL: nausea, vomiting, diarrhea, Absent: abdominal pain, abdominal distension, constipation, melena, hematochezia GENITOURINARY: increased frequency Absent: dysuria,, urgency, hesitancy, hematuria, flank pain, genital pain MUSCULOSKELETAL: Absent: myalgia, arthralgia, joint swelling, back pain, neck pain SKIN: Absent: rash, itching, pallor HEMATOLOGIC/IMMUNOLOGIC: Absent: easy bleeding, easy bruising, lymphadenopathy, frequent infections ENDOCRINE: Absent: unexplained weight gain, unexplained weight loss, heat intolerance, cold intolerance NEUROLOGIC: dizziness, Absent: headache, focal weakness or paresthesias,unsteady gait, seizure, mental status changes, bladder or bowel incontinence PSYCHIATRIC: Absent: anxiety, depression, suicidal or homicidal ideation, hallucinations. PHYSICAL EXAMINATION Vital Signs - 24 hr 12/09/18 09:13 Temperature 98.3 F Pulse Rate 102 H Respiratory 18 Rate Blood Pressure 143/76 O2 Sat by Pulse 98 Oximetry (%) GENERAL: Awake, alert, and fully oriented, in no acute distress. HEAD: Normal with no signs of trauma. EYES: Pupils equal, round and reactive to light, extraocular movements intact, sclera anicteric, conjunctiva clear. No lid lag. EARS, NOSE, THROAT: Ears normal, nares patent, oropharynx clear without exudates. Moist mucous membranes. NECK: Normal range of motion, supple without lymphadenopathy. LUNGS: Breath sounds equal, clear to auscultation bilaterally. No wheezes, and no crackles. No accessory muscle use. HEART: Regular rate and rhythm, normal S1 and S2 ABDOMEN: Soft, nontender, not distended, normoactive bowel sounds, no guarding, no rebound, no masses. Rectal: watery diarrhea noted on bedsheets, brown color, prostate felt firm but not enlarged, no masses noted, no blood visible on glove MUSCULOSKELETAL: Normal range of motion at all joints. No bony deformities or tenderness. UPPER EXTREMITIES: 2+ pulses, warm, well-perfused. No cyanosis. No clubbing. No peripheral edema. LOWER EXTREMITIES: 2+ pulses, warm, well-perfused. No calf tenderness. 1+ peripheral edema. NEUROLOGICAL: Cranial nerves II-XII intact. Normal speech. Gait not observed. PSYCHIATRIC: Cooperative. Good eye contact. Appropriate mood and affect. SKIN: Warm, dry, normal turgor, no rashes or lesions noted, normal capillary refill. Laboratory Results - last 24 hr 12/09/18 12/09/18 12/09/18 11:30 11:30 11:30 WBC RBC Hgb Hct MCV MCH MCHC RDW Plt Count MPV Absolute Neuts (auto) Neutrophils % Lymphocytes % Monocytes % Eosinophils % Basophils % Nucleated RBC % PT with INR 14.50 H INR 1.23 H PTT (Actin FS) 31.7 Sodium Potassium Chloride Carbon Dioxide Anion Gap BUN Creatinine Est GFR (CKD-EPI)AfAm Est GFR (CKD-EPI)NonAf Random Glucose Calcium Total Bilirubin AST ALT Alkaline Phosphatase Ammonia 48.80 H Creatine Kinase Creatine Kinase Index CK-MB (CK-2) Troponin I Total Protein Albumin Lipase Alcohol, Quantitative < 3.0 12/09/18 12/09/18 12/09/18 11:30 11:30 11:30 WBC 7.4 RBC 4.44 Hgb 13.0 Hct 38.8 D MCV 87.5 D MCH 29.3 MCHC 33.5 RDW 15.4 Plt Count 297 D MPV 8.8 Absolute Neuts (auto) 5.2 Neutrophils % 70.5 D Lymphocytes % 19.1 D Monocytes % 8.9 Eosinophils % 0.9 Basophils % 0.6 Nucleated RBC % 0 PT with INR INR PTT (Actin FS) Sodium 133 L Potassium 3.8 Chloride 96 L Carbon Dioxide 22 Anion Gap 15 BUN 19.8 H Creatinine 1.6 H Est GFR (CKD-EPI)AfAm 45.82 Est GFR (CKD-EPI)NonAf 39.53 Random Glucose 168 H Calcium 8.9 Total Bilirubin 1.5 H AST 64 H ALT 55 Alkaline Phosphatase 100 Ammonia Creatine Kinase 410 H Creatine Kinase Index 1.7 CK-MB (CK-2) 7.1 H Troponin I 0.15 H Total Protein 7.2 Albumin 3.2 L Lipase 375 Alcohol, Quantitative ASSESSMENT/PLAN: Mr. Cobian is an 83 year old man with a past medical history of alcohol use disorder, HTN, afib (not A/C), COPD, asthma, and s/p craniotomy in October 2018 at [facility] for evacuation of SDH. He is admitted for workup of QUE, urinary retention and diarrhea. #QUE- Patient had POC U/S in the ED which showed post void bladder volume of 1.1L, elevated Cr from baseline to 1.6 (baseline around 0.7). QUE likely due to obstruction. - Abdominal CT showing L renal hydronephrosis with hydroureter and a distended bladder measuring 18.5cm. There was no obvious obstructing stone. - rectal exam performed to evaluate prostate, no masses noted - bladder u/s to evaluate for prostate enlargement - maintain meza - UA pending> if + for UTI will follow with urine culture - Flomax 0.8 - IVF- NS 42cc/hr - Avoid nephrotoxic agents> hold any NSAIDS, ACEi, or diuretics # Diarrhea - ongoing for past several days, patient cannot remember if he took abx - Stool O+P - Stool Cx - C. diff study # Fall - Patient denies LOC, dizziness before falling, denies hitting head - hip/ pelvis x-ray to r/o fracture - CK mildly elevated ro 410, should improve with fluids - physical therapy - tylenol 650 prn for pain - may need to go to nursing facility on discharge # Prolonged QT - avoid QT prolonging agents - patient has nausea, NO ZOFRAN - compezine for nausea # ETOH use disorder - Observe of signs of withdrawal - Initiate Ativan protocol for CIWA >9 - can give ativan 1mg for CIWA > 9 # Troponemia - Troponin mildly elevated at 0.15 but patient denies any chest pains - will trend troponins - EKG unchanged from previous DVT PPX: Heparin 5000u SQ BID FEN: IVNS 42cc/hr replete prn Na controlled diet Visit type - Emergency Visit Emergency Visit: Yes ED Registration Date: 12/09/18 Care time: The patient presented to the Emergency Department on the above date and was hospitalized for further evaluation of their emergent condition. - New Patient This patient is new to me today: Yes Date on this admission: 12/09/18 - Critical Care Critical Care patient: No ATTENDING PHYSICIAN STATEMENT I saw and evaluated the patient. I reviewed the resident's note and discussed the case with the resident. I agree with the resident's findings and plan as documented. SUBJECTIVE: OBJECTIVE: ASSESSMENT AND PLAN:
[2018-12-09 18:08] LABS: PH,URINE 5.5 (5.0-8.0); URINE APPEARANCE CLEAR; URINE BILIRUBIN NEGATIVE (NEGATIVE); URINE COLOR YELLOW; URINE GLUCOSE (UA) NEGATIVE (NEGATIVE); URINE KETONE NEGATIVE (NEGATIVE); URINE LEUK ESTERASE NEGATIVE (NEGATIVE); URINE NITRITE NEGATIVE (NEGATIVE); URINE PROTEIN NEGATIVE (NEGATIVE); URINE UROBILINOGEN 0.2 mg/dL (0.2-1.0)
[2018-12-09] MEDS ORDERED: ALBUTEROL SO4 8 GM HFA INHALER IH PRN (18:12)
[2018-12-09 18:42] LABS: EPI CELLS 0.3 /HPF (0-5/HPF); HYALINE CASTS 0.73 /lpf (0-8); URINE BACTERIA 2.4 /hpf (NEGATIVE)
[2018-12-09] MEDS ORDERED: TAMSULOSIN HCL 0.4 MG CAP ONE (18:44)
[2018-12-09] MEDS ORDERED: ACETAMINOPHEN 325 MG TABLET (FP) PO PRN (19:17)
[2018-12-09] MEDS: SODIUM CHLORIDE 1,000 ML IV SCH (20:36)
[2018-12-09] MEDS ORDERED: INSULIN SLIDING SCALE (NOVOLOG) 1 VIAL SQ SCH (22:00)
[2018-12-09] MEDS ORDERED: LATANOPROST 0.005% OPHTH SOLN 2.5ML BOTTLE OU SCH (22:00)
[2018-12-09] MEDS ORDERED: HEPARIN NA (PORCINE) 5,000 UNITS/ML 1ML VIAL SQ SCH (22:00)
[2018-12-09] MEDS ORDERED: FLUTICASONE/SALMETEROL 100 MCG/50 MCG DISKUS IH SCH (22:00)
[2018-12-09] MEDS ORDERED: CARVEDILOL 25 MG TABLET (FP) PO SCH (22:00)
[2018-12-10] MEDS: SODIUM CHLORIDE 1,000 ML IV SCH ×2 (01:44→15:00)
[2018-12-10] MEDS ORDERED: ACETAMINOPHEN 325 MG TABLET (FP) PO PRN (01:46)
[2018-12-10] MEDS ORDERED: ALBUTEROL SO4 8 GM HFA INHALER IH PRN (01:46)
[2018-12-10] MEDS ORDERED: SODIUM CHLORIDE 1,000 ML IV SCH (01:46)
[2018-12-10] MEDS ORDERED: PROCHLORPERAZINE INJECTION 10 MG/2 ML VIAL IVPB PRN (01:46)
[2018-12-10 02:44] VITALS: BMI 33.7
[2018-12-10] MEDS: INSULIN SLIDING SCALE (NOVOLOG) 1 VIAL SQ SCH ×3 (06:45→16:23)
[2018-12-10] MEDS: HEPARIN NA (PORCINE) 5,000 UNITS/ML 1ML VIAL SQ SCH ×2 (06:45→13:07)
[2018-12-10] MEDS ORDERED: INSULIN SLIDING SCALE (NOVOLOG) 1 VIAL SQ SCH (07:00)
[2018-12-10 07:16] LABS: EOS % 1.5 % (0-4.5); HEMATOCRIT 34.5 % (35.4-49); HEMOGLOBIN 11.4 GM/dL (11.7-16.9); LYMPH % 24.4 % (8-40); MCH 29.3 pg (25.7-33.7); MCHC 33.2 g/dl (32.0-35.9); MEAN CELL VOLUME 88.4 fl (80-96); MEAN PLT VOLUME 9.1 fl (7.5-11.1); MONO % 10.2 % (3.8-10.2); NEUT % 62.9 % (42.8-82.8); PLATELET COUNT 256 K/MM3 (134-434); RDW 15.8 % (11.9-15.9); WHITE BLOOD COUNT 6.1 K/mm3 (4.0-10.0)
[2018-12-10 07:27] LABS: ALBUMIN 2.6 g/dl (3.4-5.0); BILIRUBIN,TOTAL 1.4 mg/dL (0.2-1); BLOOD UREA NITROGEN 10.2 mg/dL (7-18); CALCIUM 8.5 mg/dL (8.5-10.1); CREATININE 0.8 mg/dL (0.55-1.3); MAGNESIUM 1.6 mg/dL (1.8-2.4); PHOSPHOROUS 3.4 mg/dL (2.5-4.9); POTASSIUM 3.2 mmol/L (3.5-5.1); TOT PROT 5.9 g/dl (6.4-8.2)
[2018-12-10] MEDS ORDERED: PT OWN MED DRAWER 7, Y5N ONE (08:54)
[2018-12-10] MEDS ORDERED: KCL 10 MEQ IVPB 10 MEQ/100 ML INFUS.BAG IVPB SCH (09:00)
[2018-12-10] MEDS ORDERED: POTASSIUM CHLORIDE TABS 20 MEQ TABLET.ER (FP) PO ONE (09:45)
[2018-12-10] MEDS: NIFEdipine E.R 60 MG TABLET (UD) PO SCH (09:51)
[2018-12-10] MEDS: MAGNESIUM OXIDE 400 MG TABLET (FP) PO SCH (09:51)
[2018-12-10] MEDS: TAMSULOSIN HCL 0.4 MG CAP PO SCH (09:51)
[2018-12-10] MEDS: CARVEDILOL 25 MG TABLET (FP) PO SCH ×2 (09:51→22:24)
[2018-12-10] MEDS: FOLIC ACID 1 MG TABLET (FP) PO SCH (09:52)
[2018-12-10] MEDS ORDERED: NIFEdipine E.R 60 MG TABLET (UD) PO SCH (10:00)
[2018-12-10] MEDS ORDERED: MAGNESIUM OXIDE 400 MG TABLET (FP) PO SCH (10:00)
[2018-12-10] MEDS ORDERED: FOLIC ACID 1 MG TABLET (FP) PO SCH (10:00)
[2018-12-10] MEDS ORDERED: PATIENT'S OWN MEDICATION (NON-FORMULARY) (Levalbuterol Tartrate [Xopenex Hfa] 15 GM) IH SCH (10:00)
[2018-12-10] MEDS: FLUTICASONE/SALMETEROL 100 MCG/50 MCG DISKUS IH SCH ×2 (13:06→22:24)
--- NOTE | 2018-12-10 14:42 | PN ---
Physical Exam: SUBJECTIVE: Patient seen and examined at the bedside, there were no acute events overnight. Patient states that he is feeling better since the meza was placed. Meza noted to be draining bright red urine. Patient still complaining of diarrhea. OBJECTIVE: Vital Signs Period Temp Pulse Resp BP Sys/Romero Pulse Ox Last 24 Hr 98 F-99.4 F 98-119 16-20 112-155/66-81 97-97 GENERAL: Awake, alert, and fully oriented, in no acute distress. HEAD: Normal with no signs of trauma. EYES: Pupils equal, round and reactive to light, extraocular movements intact, sclera anicteric, conjunctiva clear. No lid lag. EARS, NOSE, THROAT: Ears normal, nares patent, oropharynx clear without exudates. Moist mucous membranes. NECK: Normal range of motion, supple without lymphadenopathy. LUNGS: Breath sounds equal, clear to auscultation bilaterally. No wheezes, and no crackles. No accessory muscle use. HEART: Regular rate and rhythm, normal S1 and S2 ABDOMEN: Soft, nontender, not distended, normoactive bowel sounds, no guarding, no rebound, no masses. Meza in place draining bright red urine. MUSCULOSKELETAL: Normal range of motion at all joints. No bony deformities or tenderness. UPPER EXTREMITIES: 2+ pulses, warm, well-perfused. No cyanosis. No clubbing. No peripheral edema. LOWER EXTREMITIES: 2+ pulses, warm, well-perfused. No calf tenderness. 1+ peripheral edema. NEUROLOGICAL: Cranial nerves II-XII intact. Normal speech. Gait not observed. PSYCHIATRIC: Cooperative. Good eye contact. Appropriate mood and affect. SKIN: Warm, dry, normal turgor, no rashes or lesions noted, normal capillary refill. Laboratory Results - last 24 hr 12/09/18 12/09/18 12/10/18 15:59 20:00 05:41 WBC 6.1 RBC 3.90 L Hgb 11.4 L Hct 34.5 L MCV 88.4 MCH 29.3 MCHC 33.2 RDW 15.8 Plt Count 256 MPV 9.1 Absolute Neuts (auto) 3.8 Neutrophils % 62.9 Lymphocytes % 24.4 D Monocytes % 10.2 Eosinophils % 1.5 Basophils % 1.0 Nucleated RBC % 0 Sodium Potassium Chloride Carbon Dioxide Anion Gap BUN Creatinine Est GFR (CKD-EPI)AfAm Est GFR (CKD-EPI)NonAf POC Glucometer Random Glucose Calcium Phosphorus Magnesium Total Bilirubin AST ALT Alkaline Phosphatase Troponin I 0.14 H Total Protein Albumin Urine Color Yellow Urine Appearance Clear Urine pH 5.5 Ur Specific Adona 1.009 L Urine Protein Negative Urine Glucose (UA) Negative Urine Ketones Negative Urine Blood 3+ H Urine Nitrite Negative Urine Bilirubin Negative Urine Urobilinogen 0.2 Ur Leukocyte Esterase Negative Urine WBC (Auto) 1.0 Urine RBC (Auto) 24.0 Urine Casts (Auto) 0.73 U Epithel Cells (Auto) 0.3 Urine Bacteria (Auto) 2.4 12/10/18 12/10/18 12/10/18 05:41 05:46 11:13 WBC RBC Hgb Hct MCV MCH MCHC RDW Plt Count MPV Absolute Neuts (auto) Neutrophils % Lymphocytes % Monocytes % Eosinophils % Basophils % Nucleated RBC % Sodium 141 Potassium 3.2 L Chloride 107 Carbon Dioxide 26 Anion Gap 8 BUN 10.2 Creatinine 0.8 Est GFR (CKD-EPI)AfAm 96.42 Est GFR (CKD-EPI)NonAf 83.19 POC Glucometer 163 221 Random Glucose 145 H Calcium 8.5 Phosphorus 3.4 Magnesium 1.6 L Total Bilirubin 1.4 H AST 37 ALT 36 Alkaline Phosphatase 77 Troponin I Total Protein 5.9 L Albumin 2.6 L Urine Color Urine Appearance Urine pH Ur Specific Adona Urine Protein Urine Glucose (UA) Urine Ketones Urine Blood Urine Nitrite Urine Bilirubin Urine Urobilinogen Ur Leukocyte Esterase Urine WBC (Auto) Urine RBC (Auto) Urine Casts (Auto) U Epithel Cells (Auto) Urine Bacteria (Auto) Active Medications Generic Name Dose Route Start Last Admin Trade Name Freq PRN Reason Stop Dose Admin Acetaminophen 650 mg 12/10/18 01:46 Tylenol - PO Q6H PRN Fever Or Pain Albuterol Sulfate 2 puff 12/10/18 01:46 Ventolin Hfa Inhaler - IH Q4H PRN SHORT OF BREATH/WHEEZING Carvedilol 25 mg 12/10/18 10:00 12/10/18 09:51 Coreg - PO 25 mg BID PEREZ Administration Folic Acid 1 mg 12/10/18 10:00 12/10/18 09:52 Folic Acid - PO 1 mg DAILY PEREZ Administration Heparin Sodium (Porcine) 5,000 unit 12/10/18 06:00 12/10/18 13:07 Heparin - SQ 5,000 unit TID PEREZ Administration Sodium Chloride 1,000 mls @ 75 mls/hr 12/10/18 12:34 Normal Saline - IV ASDIR [facility] Insulin Aspart 1 vial 12/10/18 07:00 12/10/18 11:15 Novolog Vial Sliding Scale - SQ 2 units TIDAC PEREZ Administration Protocol Latanoprost 1 drop 12/10/18 22:00 Xalatan 0.005% Eye Drops - OU HS [facility] Magnesium Oxide 400 mg 12/10/18 10:00 12/10/18 09:51 Mag-Ox - PO 400 mg DAILY PEREZ Administration Nifedipine 60 mg 12/10/18 10:00 12/10/18 09:51 Procardia Xl - PO 60 mg DAILY PEREZ Administration Prochlorperazine Edisylate 10 mg 12/10/18 01:46 Compazine Injection - IVPB Q6H PRN NAUSEA AND/OR VOMITING Fluticasone/Salmeterol 1 puff 12/10/18 10:00 12/10/18 13:06 Advair 100mcg/50mcg - IH 1 puff BID PEREZ Administration Tamsulosin HCl 0.8 mg 12/10/18 08:30 12/10/18 09:51 Flomax - PO 0.8 mg DAILY@0830 [facility] Administration ASSESSMENT/PLAN: Mr. Cobian is an 83 year old man with a past medical history of alcohol use disorder, HTN, afib (not A/C), COPD, asthma, and s/p craniotomy in October 2018 at [facility] for evacuation of [facility]. He is admitted for workup of QUE, urinary retention and diarrhea. #QUE- meza now draining bright red urine - bladder u/s showing enlarged prostate> vol of 117cc - maintain meza, bright red urine may be due to traumatic meza insertion - continue Flomax 0.8 - IVF- NS 42cc/hr - will attempt voiding trial tomorrow, if patient is able to void without meza he can be discharged with plans to follow up with urology as an outpatient - Avoid nephrotoxic agents> hold any NSAIDS, ACEi, or diuretics # Diarrhea- sample not yet collected, will attempt to re-collect today - ongoing for past several days, patient cannot remember if he took abx - Stool O+P - Stool Cx - C. diff study # Fall - hip/ pelvis x-ray to r/o fracture > no signs of acute trauma - physical therapy - tylenol 650 prn for pain # Prolonged QT - avoid QT prolonging agents - patient has nausea, NO ZOFRAN - compezine for nausea # ETOH use disorder> likely cause of slightly elevated liver enzymes - Observe of signs of withdrawal - Initiate Ativan protocol for CIWA >9 - can give ativan 1mg for CIWA > 9 # Troponemia - Troponin mildly elevated at 0.15 but patient denies any chest pains - troponin trended down today to 0.14 - EKG unchanged from previous # HTN - cont coreg and nifedipine DVT PPX: - will hold Heparin 5000u SQ BID due to blood in urine FEN: IVNS 42cc/hr replete prn Na controlled diet # Dispo: Voiding trial tomorrow and hopefully discharge Visit type - Emergency Visit Emergency Visit: Yes ED Registration Date: 12/09/18 Care time: The patient presented to the Emergency Department on the above date and was hospitalized for further evaluation of their emergent condition. - New Patient This patient is new to me today: No - Critical Care Critical Care patient: No - Discharge Referral Referred to [facility] Med P.C.: No ATTENDING PHYSICIAN STATEMENT I saw and evaluated the patient. I reviewed the resident's note and discussed the case with the resident. I agree with the resident's findings and plan as documented. SUBJECTIVE: OBJECTIVE: ASSESSMENT AND PLAN:
--- NOTE | 2018-12-10 15:10 | PN ---
Teaching Attending Note Name of Resident: Vianca Wilde ATTENDING PHYSICIAN STATEMENT I saw and evaluated the patient. I reviewed the resident's note and discussed the case with the resident. I agree with the resident's findings and plan as documented. SUBJECTIVE: No fever or chills. No LUND . still feels light headed with standing . no cp or SOB OBJECTIVE: NAD. awake,alert, cooperative. HEENT: still slightly dry MM. CV; RRR, no MRG Lungs: CTAB Abd: obese, soft, NT, ND , NL BS . meza in with bloody urine Ext : scarring and dry skin on lower legs and feet. DP 2+ b/l. no ulcers on feet. trace LE edema. Upper extremities with no edema or erythema , ASSESSMENT AND PLAN: 83 y/o man with h/o A fib, COPD, recent craniotomy for ICH, CAD s/p inferior infarct, ETOH dependence, HTN and other medical problem who presented with nausea, diarrhea, and s/p fall. he was found to have QUE, and slightly elevated trop 1- Mechanical fall: no syncope. o fx . hips xrays reviewed 2- QUE: likely due to post renal due to urinary retention - cont meza - cont flomax - voiding trial in am - need urology eval after dc - needs repeat US of kidneys to evaluate hydro as out pt - prostat is enlarged on US, cont flomax and eval as out pt if he passes voiding trial - increase IVF hematuria likely due to trauma. will hold heparin 3-Slight hypertroponinemia:trop trended down 4- slight elevation in LFTs , likley due to alcohol use . 5- ETOH dependence. No evidence of withdrawal. will monitor. 6- Diarrhea: stool cx and c diff pending. had diarrhea this am but sample was not collected 7- Prolonged QTC: avoid prolonging agents. avoid zofran and give compazine for nausea. 8- HTN : cont coreg and nifedipine DVT PX : dc heparin due to hematuria . expecting voiding trial tomorrow and hopefully dc
[2018-12-10] MEDS: LATANOPROST 0.005% OPHTH SOLN 2.5ML BOTTLE OU SCH (22:48)
[2018-12-11] MEDS: INSULIN SLIDING SCALE (NOVOLOG) 1 VIAL SQ SCH ×3 (06:54→16:19)
[2018-12-11] MEDS: TAMSULOSIN HCL 0.4 MG CAP PO SCH (08:27)
[2018-12-11 08:35] LABS: HEMATOCRIT 38.5 % (35.4-49); HEMOGLOBIN 12.8 GM/dL (11.7-16.9); MCH 29.8 pg (25.7-33.7); MCHC 33.1 g/dl (32.0-35.9); MEAN CELL VOLUME 89.8 fl (80-96); MEAN PLT VOLUME 9.3 fl (7.5-11.1); PLATELET COUNT 248 K/MM3 (134-434); RBC 4.29 M/mm3 (4.00-5.60); RDW 16.2 % (11.9-15.9); WHITE BLOOD COUNT 6.7 K/mm3 (4.0-10.0)
[2018-12-11 08:46] LABS: ALBUMIN 2.9 g/dl (3.4-5.0); BILIRUBIN,TOTAL 0.8 mg/dL (0.2-1); BLOOD UREA NITROGEN 8.3 mg/dL (7-18); CALCIUM 8.3 mg/dL (8.5-10.1); CREATININE 0.7 mg/dL (0.55-1.3); MAGNESIUM 1.4 mg/dL (1.8-2.4); PHOSPHOROUS 2.5 mg/dL (2.5-4.9); POTASSIUM 3.4 mmol/L (3.5-5.1); TOT PROT 6.8 g/dl (6.4-8.2)
[2018-12-11] MEDS ORDERED: PT OWN MED DRAWER 7, Y5N ONE (09:12)
[2018-12-11] MEDS: MAGNESIUM OXIDE 400 MG TABLET (FP) PO SCH (09:28)
[2018-12-11] MEDS: CARVEDILOL 25 MG TABLET (FP) PO SCH ×2 (09:28→21:50)
[2018-12-11] MEDS: NIFEdipine E.R 60 MG TABLET (UD) PO SCH (09:28)
[2018-12-11] MEDS: FLUTICASONE/SALMETEROL 100 MCG/50 MCG DISKUS IH SCH ×2 (09:28→21:51)
[2018-12-11] MEDS: FOLIC ACID 1 MG TABLET (FP) PO SCH (09:28)
[2018-12-11] MEDS: SODIUM CHLORIDE 1,000 ML IV SCH (13:30)
[2018-12-11] MEDS ORDERED: POTASSIUM CHLORIDE TABS 20 MEQ TABLET.ER (FP) PO ONE (15:22)
[2018-12-11] MEDS ORDERED: MAGNESIUM OXIDE 400 MG TABLET (FP) PO ONE (15:22)
--- NOTE | 2018-12-11 15:26 | PN ---
Teaching Attending Note Name of Resident: Shannon Hoffman ATTENDING PHYSICIAN STATEMENT I saw and evaluated the patient. I reviewed the resident's note and discussed the case with the resident. I agree with the resident's findings and plan as documented. SUBJECTIVE: no fever or chills. No Pain . feels better . had a watery/loose BAM this am , but sample was not collected OBJECTIVE: NAD. awake,alert, cooperative. HEENT: MMM CV; RRR, no MRG Lungs: CTAB Abd: obese, soft, NT, ND, NL BS . Ext : scarring and dry skin on lower legs and feet.. Upper extremities with no edema or erythema , ASSESSMENT AND PLAN: 83 y/o man with h/o A fib, COPD, recent craniotomy for ICH, CAD s/p inferior infarct, ETOH dependence, HTN and other medical problem who presented with nausea, diarrhea, and s/p fall. he was found to have QUE, and slightly elevated trop 1- Mechanical fall: no syncope. 2- QUE: likely due to post renal due to urinary retention - dc meza . voidal trial - cont flomax - need urology eval after dc - needs repeat US of kidneys to evaluate hydro as out pt - prostat is enlarged on US, cont flomax and eval as out pt if he passes voiding trial 3-Slight hypertroponinemia:trop trended down 4- slight elevation in LFTs , likley due to alcohol use . 5- ETOH dependence. No evidence of withdrawal. will monitor. 6- Diarrhea:improved. neg c diff. stool cx pending 7- Prolonged QTC: avoid prolonging agents. avoid zofran and give compazine for nausea. 8- HTN : cont coreg and nifedipine DVT PX : resume heparin sq awaiting voiding. check ortho VS. and will decide on dc
[2018-12-11] MEDS: HEPARIN NA (PORCINE) 5,000 UNITS/ML 1ML VIAL SQ SCH (21:50)
[2018-12-11] MEDS: LATANOPROST 0.005% OPHTH SOLN 2.5ML BOTTLE OU SCH (21:51)
[2018-12-12] MEDS: INSULIN SLIDING SCALE (NOVOLOG) 1 VIAL SQ SCH ×3 (06:26→18:19)
[2018-12-12] MEDS: HEPARIN NA (PORCINE) 5,000 UNITS/ML 1ML VIAL SQ SCH ×3 (06:26→22:37)
[2018-12-12] MEDS: FOLIC ACID 1 MG TABLET (FP) PO SCH (10:57)
[2018-12-12] MEDS: CARVEDILOL 25 MG TABLET (FP) PO SCH ×2 (10:57→22:37)
[2018-12-12] MEDS: TAMSULOSIN HCL 0.4 MG CAP PO SCH (10:58)
[2018-12-12] MEDS: NIFEdipine E.R 60 MG TABLET (UD) PO SCH (10:58)
[2018-12-12] MEDS: MAGNESIUM OXIDE 400 MG TABLET (FP) PO SCH (10:59)
[2018-12-12] MEDS: FLUTICASONE/SALMETEROL 100 MCG/50 MCG DISKUS IH SCH ×2 (10:59→22:38)
[2018-12-12] MEDS: SODIUM CHLORIDE 1,000 ML IV SCH (16:16)
--- NOTE | 2018-12-12 16:53 | PN ---
Progress Note (short form) - Note Progress Note: Subjective: no fever or chills . had 4 watery BM this morning. no abd pain. reports depression x 2 years no SI . did not tell his PCP Objective: Vital Signs: Last Vital Signs Temp Pulse Resp BP Pulse Ox 98 F 103 H 20 123/59 L 98 12/12/18 14:00 12/12/18 14:00 12/12/18 14:00 12/12/18 14:00 12/11/18 21:00 Laboratory Results - last 24 hr 12/12/18 12/12/18 12/12/18 05:53 11:04 11:30 POC Glucometer 146 164 Hemoglobin A1c % 7.5 H Physical Exam: NAD. awake,alert, cooperative. HEENT: MMM CV; RRR, no MRG Lungs: CTAB Abd: obese, soft, NT, ND, NL BS . Ext : scarring and dry skin on lower legs and feet..trace edema on legs . Upper extremities with no edema or erythema , ASSESSMENT AND PLAN: 83 y/o man with h/o A fib, COPD, recent craniotomy for ICH, CAD s/p inferior infarct, ETOH dependence, HTN and other medical problem who presented with nausea, diarrhea, and s/p fall. he was found to have QUE, and slightly elevated trop 1- Mechanical fall: no syncope. neg orthostatic VS yesterday on resident exam 2- QUE: likely due to post renal due to urinary retention - cr normalized but patient did not pass voiding trial - cont flomax - need urology eval after dc - needs repeat US of kidneys to evaluate hydro as out pt 3-Slight hypertroponinemia:trop trended down 4- enlarged prostate: likely BPH. need uro eval as out pt 5- new onset Dm : hyperglycemia here. old records indicate A1c 5.9-6.7. repeat today 7.5. - will start on Januvia to cont after dc - avoid metformin in his old age 6- Diarrhea:improved. neg c diff. cont to have diarrhea . cont IVF to avoid volume depletion 7- Prolonged QTC: avoid prolonging agents. 8- HTN : cont coreg and nifedipine 9- possible depression: f/u with his pPC and psych for management . No SI. DVT PX : heparin sq will not dc home as having diarrhea , due to risk of dehydration in this 83 y/o gentleman a Visit type - Emergency Visit Emergency Visit: Yes ED Registration Date: 12/09/18 Care time: The patient presented to the Emergency Department on the above date and was hospitalized for further evaluation of their emergent condition. - New Patient This patient is new to me today: No - Critical Care Critical Care patient: No
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
[2018-12-12] MEDS: LATANOPROST 0.005% OPHTH SOLN 2.5ML BOTTLE OU SCH (22:38)
[2018-12-13] MEDS: HEPARIN NA (PORCINE) 5,000 UNITS/ML 1ML VIAL SQ SCH (06:37)
[2018-12-13] MEDS: INSULIN SLIDING SCALE (NOVOLOG) 1 VIAL SQ SCH ×2 (06:37→13:35)
[2018-12-13] MEDS ORDERED: sitaGLIPtin PHOSPHATE 50 MG TABLET PO SCH (07:00)
[2018-12-13 08:44] LABS: MAGNESIUM 1.3 mg/dL (1.8-2.4); PHOSPHOROUS 2.8 mg/dL (2.5-4.9); POTASSIUM 3.4 mmol/L (3.5-5.1)
[2018-12-13] MEDS ORDERED: POTASSIUM CHLORIDE TABS 20 MEQ TABLET.ER (FP) PO ONE (08:45)
[2018-12-13] MEDS ORDERED: MAGNESIUM OXIDE 400 MG TABLET (FP) PO ONE (08:46)
[2018-12-13] MEDS: TAMSULOSIN HCL 0.4 MG CAP PO SCH (11:57)
[2018-12-13] MEDS: CARVEDILOL 25 MG TABLET (FP) PO SCH (11:57)
[2018-12-13] MEDS: FOLIC ACID 1 MG TABLET (FP) PO SCH (11:58)
[2018-12-13] MEDS: NIFEdipine E.R 60 MG TABLET (UD) PO SCH (11:59)
[2018-12-13] MEDS: FLUTICASONE/SALMETEROL 100 MCG/50 MCG DISKUS IH SCH (12:02)
[2018-12-13] MEDS: MAGNESIUM OXIDE 400 MG TABLET (FP) PO SCH (12:06)
--- NOTE | 2018-12-13 12:08 | PN ---
Teaching Attending Note Name of Resident: Vianca Wilde ATTENDING PHYSICIAN STATEMENT I saw and evaluated the patient. I reviewed the resident's note and discussed the case with the resident. I agree with the resident's findings and plan as documented. SUBJECTIVE: No fever or chills. No pain, no diarrhea. no n/v. feels better OBJECTIVE: NAD. awake,alert, cooperative. HEENT: MMM CV; RRR, no MRG Lungs: CTAB Abd: obese, soft, NT, ND, NL BS. Ext : no edema or erythema, scars and hyperpigmentation ASSESSMENT AND PLAN: 83 y/o man with h/o A fib, COPD, recent craniotomy for ICH, CAD s/p inferior infarct, ETOH dependence, HTN and other medical problem who presented with nausea, diarrhea, and s/p fall. he was found to have QUE, and slightly elevated trop 1- Mechanical fall: no syncope. 2- QUE: likely due to post renal due to urinary retention - resolved - cont flomax - need urology eval after dc - needs repeat US of kidneys to evaluate hydro as out pt 3-Slight hypertroponinemia:trop trended down 4- Enlarged prostate: likely BPH. need uro eval as out pt. 5- New onset Dm : hyperglycemia here. A1c 7.5. - Januvia to cont after dc - avoid metformin in his old age - RN for glucometer teaching and prescription sent to pharmacy - he needs to check his sugar daily and report to his PCP . he understands 6- Diarrhea:resolved. stool cx pending . 7- Prolonged QTC: avoid prolonging agents. 8- HTN : cont coreg and nifedipine 9- possible depression: f/u with his pPC and psych for management . No SI. Dc today
[2018-12-13] MEDS: SODIUM CHLORIDE 1,000 ML IV SCH (13:35)
[2018-12-13 14:07] VITALS: BP 125/60; PULSE 72; TEMP 98.4
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
== END 2018-12-13 14:54 | disposition home or self-care (01) | DRG 683 ==
LOC: JER 09:12 → JERBED 14:35 → J8W 23:34
PROVIDERS: ADMIT Internal Medicine; ATTEND Internal Medicine
DX: N17.9 Acute kidney failure, unspecified (principal); K86.1 Other chronic pancreatitis; N40.1 Benign prostatic hyperplasia with lower urinary tract symptoms; N13.30 Unspecified hydronephrosis; I10 Essential (primary) hypertension; J44.9 Chronic obstructive pulmonary disease, unspecified; J45.909 Unspecified asthma, uncomplicated; R33.9 Retention of urine, unspecified; E11.65 Type 2 diabetes mellitus with hyperglycemia; R19.7 Diarrhea, unspecified; I25.10 Atherosclerotic heart disease of native coronary artery without angina pectoris; F10.20 Alcohol dependence, uncomplicated
CPT/HCPCS: 36415; 70450-TC; 71045-TC-FY; 73523-TC-FY; 74176-TC; 76856-TC; 80053; 80307; 81003; 82140; 82550; 82553; 82962; 83036; 83690; 83735; 84100; 84132; 84484; 85025; 85027; 85610; 85730; 87045; 87046; 87086; 87177; 87209; 87324; 87449; 93005; 93010; 97116-GP; 97161-GP; 99284-25; J1644; J7030

== ENCOUNTER 2018-12-17 05:08 | Emergency (ER) | payer OTHER ==
--- NOTE | 2018-12-17 05:58 | PDOC ---
History of Present Illness - General Stated Complaint: BLEEDING Time Seen by Provider: 12/17/18 05:58 History Source: Patient Exam Limitations: No Limitations - History of Present Illness Initial Comments: 12/17/18 06:12 Mr. Cobian is an 83yoM w PMHx of urinary retention w meza catheter, BPH, alcohol use disorder, HTN, afib (not A/C), COPD, asthma, and s/p craniotomy in October 2018 presenting with penile bleeding. 4am this morning, meza catheter was ripped out of urethra after catching on bathroom doorframe after pt emptied meza bag in bathroom toilet, Subsequent urethral and suprapubic pain, gross penile bleeding. Also endorses mild urinary urgency. He was d/c from hospital on 12/13 after diagnosed with BPH causing urinary retention when meza was placed , was planning to meet Dr Beatty urology for TURP on 12/20. Denies fever, vomiting, SOB, chest pain. Past History - Past Medical History Allergies/Adverse Reactions: Allergies Allergy/AdvReac Type Severity Reaction Status Date / Time No Known Allergies Allergy Verified 12/09/18 17:12 Home Medications: Ambulatory Orders Bimatoprost [Lumigan] 1 drop OU HS 04/14/16 Levalbuterol Tartrate [Xopenex Hfa] 15 gm IH DAILY 09/02/17 Carvedilol [Coreg -] 25 mg PO BID #60 tablet 09/06/17 Nifedipine [Nifedipine ER] 60 mg PO DAILY 10/02/18 Folic Acid - 1 mg PO DAILY #60 tablet 10/26/18 Fluticasone/Vilanterol [Breo Ellipta 100-25 Mcg INH] 1 each IH DAILY 12/09/18 Magnesium Oxide 400 mg PO DAILY 12/09/18 Tamsulosin HCl [Flomax -] 0.8 mg PO DAILY@0830 30 Days #30 cap.er.24h 12/11/18 Lancets [Lancets Ultra Thin] 1 each MC DAILY #50 each 12/13/18 Miscellaneous Medical Supply [Glucometer Device] 1 each AD ASDIR #1 kit Miscellaneous Medical Supply [Glucometer Test Strips #100] 1 each AD ASDIR #1 box 12/13/18 Sitagliptin Phosphate [Januvia] 100 mg PO DAILY 30 Days #30 tablet 12/13/18 Anemia: No Asthma: Yes (ON ALBUTEROL INHALER) Cancer: No Cardiac Disorders: No CVA: No COPD: No CHF: No DVT: Yes (Right leg) Dementia: No Diabetes: Yes GI Disorders: No Disorders: No HTN: Yes Hypercholesterolemia: No Kidney Stones: No Liver Disease: No Seizures: No Thyroid Disease: No - Surgical History Neurologic Surgery: Yes (R frontal craniotomy, subdural hematoma) Orthopedic Surgery: Yes (RIGHT KNEE REPLACEMENT IN 2006) - Reproductive History Testicular Surgery: No - Immunization History Td Vaccination: Yes TDAP Vaccination: Yes Immunization Up to Date: Yes - Suicide/Smoking/Psychosocial Hx Smoking History: Never smoked Have you smoked in the past 12 months: No If you are a former smoker, when did you quit?: 1973 Hx Alcohol Use: No Drug/Substance Use Hx: No Substance Use Type: Alcohol Hx Substance Use Treatment: No Review of Systems - Review of Systems Constitutional: No: Chills, Fever HEENTM: No: Eye Pain, Nose Pain, Throat Pain, Mouth Pain Respiratory: No: Cough, Shortness of Breath Cardiac (ROS): No: Chest Pain, Palpitations, Syncope ABD/GI: No: Abdominal Distended, Constipated, Diarrhea, Nausea, Vomiting : Yes: Hematuria, Pain, Urgency Integumentary: No: Bruising, Flushing, Lesions Neurological: No: Headache, Numbness, Seizure, Tingling Psychiatric: No: Anxiety, Depression, Stressors Endocrine: No: Excessive Sweating, Flushing, Intolerance to Cold, Intolerance to Heat Hematologic/Lymphatic: No: Anemia, Blood Clots, Easy Bleeding *Physical Exam - Physical Exam General Appearance: Yes: Nourished, Appropriately Dressed, Mild Distress HEENT: positive: EOMI, MIGUEL, Normal Voice, Hearing Grossly Normal. negative: Scleral Icterus (R), Scleral Icterus (L) Respiratory/Chest: positive: Lungs Clear, Normal Breath Sounds. negative: Chest Tender, Respiratory Distress, Crackles, Rales, Rhonchi, Stridor, Wheezing Cardiovascular: positive: Regular Rhythm, Regular Rate, S1, S2. negative: Edema , Murmur Gastrointestinal/Abdominal: positive: Normal Bowel Sounds, Flat, Soft. negative : Tender, Organomegaly Male Genitalia: positive: hematuria (gross hematuria stained bedsheets, no active bleeding), other (enlarged urthreal opening, moderate tenderness to palpation suprapubic region, penile shaft) Extremity: positive: Normal Capillary Refill Integumentary: positive: Normal Color Neurologic: positive: Fully Oriented, Alert, Normal Mood/Affect, Normal Response , Respond to painful stimul, Responsive. negative: Sensory Deficit, Confused, Disoriented Medical Decision Making - Medical Decision Making 12/17/18 06:13 Mr. Cobian is an 83yoM w PMHx of urinary retention w meza catheter, BPH, alcohol use disorder, HTN, afib (not A/C), COPD, asthma, and s/p craniotomy in October 2018 presenting with penile bleeding d/t traumatic meza removal. No active bleeding on evaluation. Waiting for call back from urology ([phone]) regarding ED plan, discuss bladder scan to evaluate retention. Place meza catheter if pt compains of intractable urinary urgency and pain Signed out to day team *DC/Admit/Observation/Transfer Diagnosis at time of Disposition: Urinary retention due to benign prostatic hyperplasia Urethral injury Qualifiers: Encounter type: initial encounter Qualified Code(s): S37.30XA - Unspecified injury of urethra, initial encounter - Discharge Dispostion Condition at time of disposition: Stable - Referrals Referrals: Deshawn Ling MD [Primary Care Provider] - - Patient Instructions - Post Discharge Activity
[2018-12-17 06:24] VITALS: BP 154/101; PULSE 79; TEMP 98.2; BMI 32.7
--- NOTE | 2018-12-17 06:46 | PDOC ---
Attending Attestation - Resident Resident Name: Pierre Alva - ED Attending Attestation I have performed the following: I have examined & evaluated the patient, The case was reviewed & discussed with the resident, I agree w/resident's findings & plan, Exceptions are as noted - HPI HPI: 12/17/18 06:43 83 M with h/o urinary retention s/p meza catheter, BPH, alcohol use disorder, HTN, afib (not A/C), COPD, asthma, and s/p craniotomy in October 2018, presenting to ED after accidentally pulling his meza catheter. Pt states the tubing of the meza catheter got caught on something as he was walking, causing his catheter to be yanked out while the balloon was still inflated. Pt now complains of pain in his penis, as well as blood in his urine. - Physicial Exam PE: 12/17/18 06:45 "GENERAL: Awake, alert, and fully oriented, in no acute distress. HEAD: No signs of trauma EYES: PERRLA, EOMI, sclera anicteric, conjunctiva clear ENT: Auricles normal inspection, hearing grossly normal, nares patent, oropharynx clear without exudates. Moist mucosa NECK: Nontender, no stepoffs, Normal ROM, supple, no lymphadenopathy, JVD, or masses LUNGS: Breath sounds equal, clear to auscultation bilaterally. No wheezes, and no crackles HEART: Regular rate and rhythm, normal S1 and S2, no murmurs, rubs or gallops ABDOMEN: Soft, nontender, normoactive bowel sounds. No guarding, no rebound. No masses EXTREMITIES: Normal range of motion, no edema. No clubbing or cyanosis. No cords, erythema, or tenderness NEUROLOGICAL: Cranial nerves II through XII intact. 5/5 strength and sensation in all extremities, Normal speech, normal gait, normal cerebellar function SKIN: Warm, Dry, normal turgor, no rashes or lesions noted. : + Blood at meatus - Medical Decision Making 12/17/18 06:45 83 M with hematuria after meza was forcibly removed without deflating balloon. - Labs, UA - C/s urology Pt signed out to oncoming team at 7AM, pending labs and discussion with urology.
[2018-12-17 08:22] LABS: ALBUMIN 2.8 g/dl (3.4-5.0); BILIRUBIN,TOTAL 0.5 mg/dL (0.2-1); BLOOD UREA NITROGEN 7.1 mg/dL (7-18); CALCIUM 8.9 mg/dL (8.5-10.1); CREATININE 0.8 mg/dL (0.55-1.3); POTASSIUM 3.8 mmol/L (3.5-5.1); TOT PROT 6.4 g/dl (6.4-8.2)
[2018-12-17 08:25] LABS: BASO % 0.7 % (0-2.0); EOS % 4.3 % (0-4.5); HEMATOCRIT 34.2 % (35.4-49); HEMOGLOBIN 11.4 GM/dL (11.7-16.9); LYMPH % 16.8 % (8-40); MCHC 33.2 g/dl (32.0-35.9); MEAN CELL VOLUME 90.4 fl (80-96); MEAN PLT VOLUME 8.8 fl (7.5-11.1); MONO % 13.1 % (3.8-10.2); NEUT % 65.1 % (42.8-82.8); PLATELET COUNT 278 K/MM3 (134-434); RBC 3.79 M/mm3 (4.00-5.60); RDW 16.1 % (11.9-15.9)
--- NOTE | 2018-12-17 09:57 | PDOC ---
*Physical Exam - Vital Signs Last Vital Signs Temp Pulse Resp BP Pulse Ox 98.2 F 79 17 154/101 H 100 12/17/18 06:16 12/17/18 06:16 12/17/18 06:16 12/17/18 06:16 12/17/18 06:16 ED Treatment Course - LABORATORY CBC & Chemistry Diagram: 12/17/18 07:40 12/17/18 07:40 - ADDITIONAL ORDERS Additional order review: Laboratory Results 12/17/18 07:40 Sodium 136 Potassium 3.8 Chloride 102 Carbon Dioxide 28 Anion Gap 6 L BUN 7.1 Creatinine 0.8 Est GFR (CKD-EPI)AfAm 96.42 Est GFR (CKD-EPI)NonAf 83.19 Random Glucose 156 H Calcium 8.9 Total Bilirubin 0.5 AST 28 ALT 28 Alkaline Phosphatase 58 Total Protein 6.4 Albumin 2.8 L 12/17/18 07:40 RBC 3.79 L MCV 90.4 MCHC 33.2 RDW 16.1 H MPV 8.8 Neutrophils % 65.1 Lymphocytes % 16.8 D Monocytes % 13.1 H Eosinophils % 4.3 D Basophils % 0.7 Medical Decision Making - Medical Decision Making 12/17/18 09:45 Sign-out received from overnight resident. Pending Urology discussion Spoke with Urology, told to attempt to pass catheter, if failure send to office. 12/17/18 09:52 Catheter passed successfully in the ED - no piper blood s/p placement. Pt still scheduled for TURP on 12/20. Return precautions discussed. 12/17/18 09:57 Pt ready for discharge. Return precautions discussed. *DC/Admit/Observation/Transfer Diagnosis at time of Disposition: Urinary retention due to benign prostatic hyperplasia Urethral injury Qualifiers: Encounter type: initial encounter Qualified Code(s): S37.30XA - Unspecified injury of urethra, initial encounter - Discharge Dispostion Disposition: HOME Condition at time of disposition: Stable Decision to Admit order: No - Referrals Referrals: Deshawn Ling MD [Primary Care Provider] - - Patient Instructions Printed Discharge Instructions: How to Care for Your Meza Catheter -- Male Additional Instructions: You were seen and evaluated in the ED for urethral injury. A new Meza was placed. You can take over the counter pain medication as directed on label as needed for pain. Please follow up with your urologist and go for your 12/20 scheduled TURP procedure. Return to the ED for any new or concerning symptoms including but not limited to : fever/chills, abdominal distention and pain, or piper blood in the meza bag. - Post Discharge Activity
== END 2018-12-17 10:11 | disposition home or self-care (01) ==
LOC: JER 05:08
PROC: 0T9B70Z Drainage of Bladder with Drainage Device, Via Natural or Artificial Opening (ICD-10-PCS; principal; 2018-12-17)
DX: S37.30XA Unspecified injury of urethra, initial encounter (principal); R33.9 Retention of urine, unspecified; N40.0 Benign prostatic hyperplasia without lower urinary tract symptoms; F10.99 Alcohol use, unspecified with unspecified alcohol-induced disorder; I10 Essential (primary) hypertension; I48.91 Unspecified atrial fibrillation; J45.909 Unspecified asthma, uncomplicated
CPT/HCPCS: 36415; 51702; 80053; 85025; 99282-25

== ENCOUNTER 2019-01-13 11:04 | Day surgery (SDC) | payer OTHER ==
[2019-01-11 19:36] VITALS: BMI 34.0
--- NOTE | 2019-01-13 12:23 | HP ---
History & Physical Update - History History: No Change - Physical Physical: No Change - Assessment Assessment: No Change - Plan Plan: No Change
[2019-01-13] MEDS ORDERED: ACETAMINOPHEN 1000 MG/100 ML VIAL (NON FORMULARY) IVPB ONE ×2 (12:27→15:15)
[2019-01-13] MEDS ORDERED: IBUPROFEN 800 MG/8 ML IJ IVPB SCH (12:30)
[2019-01-13] MEDS ORDERED: DEXTROSE 5%-0.45% SALINE 1,000 ML IV SCH (12:30)
[2019-01-13] MEDS ORDERED: LIDOCAINE HCL/PF 2% SDV 5ML VIAL ONE (12:38)
[2019-01-13] MEDS ORDERED: PROPOFOL 20 ML ONE (12:42)
[2019-01-13] MEDS ORDERED: ceFAZolin SODIUM 1 GM VIAL ONE (12:45)
[2019-01-13] MEDS ORDERED: ceFAZolin SODIUM 1 GM VIAL IVPB ONE (12:52)
[2019-01-13] MEDS ORDERED: ONDANSETRON 4 MG/2 ML VIAL IVPUSH PRN (13:42)
[2019-01-13] MEDS ORDERED: LACTATED RINGERS SOLUTION 1,000 ML IV SCH (13:45)
--- NOTE | 2019-01-13 14:36 | OP ---
DATE OF OPERATION: 01/13/2019 PREOPERATIVE DIAGNOSIS: Urinary retention, benign prostatic hypertrophy. POSTOPERATIVE DIAGNOSIS: Urinary retention, benign prostatic hypertrophy. PROCEDURE: Cystoscopy, GreenLight laser ablation of prostate. ANESTHESIA: General, Dr. Queen SPECIMENS: None. FINDINGS: Obstructive prostate tissue. PREOPERATIVE INDICATIONS: The patient is an 83-year-old male with urinary retention with a large prostate. OPERATION: The patient was brought to the OR, placed on the table in supine position, given general anesthesia and IV antibiotics and placed in the modified lithotomy position. The groin was prepped and draped sterilely. Timeout was performed. Cystoscopy was performed. Distal urethra appeared to be normal. The sphincter was visualized. The prostate itself had large obstructive lateral lobes. The bladder had trabeculation throughout. No tumors were seen, no stones. Both UOs were visualized. Using the GreenLight laser, obstructive tissue was ablated and a total of 158,000 joules were used. At the end of the procedure, no bleeding was seen. The urinary sphincter was still intact. The UOs were also visualized and they were not injured. There was clear drainage from the bladder. A 22-Japanese Porras catheter was left in place for postoperative drainage. Willian [id number]
[2019-01-13] MEDS ORDERED: ACETAMINOPHEN INJECTION 100 ML IVPB ONE (15:34)
[2019-01-13 17:38] VITALS: BP 140/74; PULSE 88; TEMP 97.7
== END 2019-01-13 17:10 | disposition home or self-care (01) ==
LOC: JASU-SURG 11:04
PROVIDERS: ATTEND Urology
PROC: 0V508ZZ Destruction of Prostate, Via Natural or Artificial Opening Endoscopic (ICD-10-PCS; principal; 2019-01-13 12:30)
DX: N40.1 Benign prostatic hyperplasia with lower urinary tract symptoms (principal); R33.8 Other retention of urine
CPT/HCPCS: 94760; J0131

== ENCOUNTER 2019-06-01 23:08 | Emergency (ER) | payer OTHER ==
[2019-06-01 23:13] VITALS: BMI 34.0
--- NOTE | 2019-06-02 00:56 | PDOC ---
*Physical Exam - Vital Signs Last Vital Signs Temp Pulse Resp BP Pulse Ox 98.5 F 93 H 18 140/82 100 06/01/19 23:11 06/01/19 23:11 06/01/19 23:11 06/01/19 23:11 06/01/19 23:11 Medical Decision Making - Medical Decision Making 06/02/19 00:55 Patient seen by the advanced practice provider under my supervision. Ancillary testing reviewed as necessary. I agree with plan as outlined by the advanced practice provider. Discharge - Discharge Information Problems reviewed: Yes Clinical Impression/Diagnosis: Alcohol intoxication Qualifiers: Complication of substance-induced condition: uncomplicated Qualified Code(s): F10.920 - Alcohol use, unspecified with intoxication, uncomplicated Condition: Stable Disposition: HOME - Follow up/Referral Referrals: ON STAFF,NOT [Primary Care Provider] - - Patient Discharge Instructions Patient Printed Discharge Instructions: DI for Alcohol Abuse Additional Instructions: Thank you for choosing [facility]. It was a pleasure taking care of you. Your CT scan of the head and cervical spine were unremarkable Refrain from drinking large amounts of alcohol Return to the Emergency Department if your symptoms worsen or persist or have other concerning symptoms. - Post Discharge Activity
--- NOTE | 2019-06-02 02:55 | PDOC ---
History of Present Illness - General Chief Complaint: Injury Stated Complaint: FALL Time Seen by Provider: 06/02/19 00:26 History Source: Family Exam Limitations: Clinical Condition Past History - Past Medical History Allergies/Adverse Reactions: Allergies Allergy/AdvReac Type Severity Reaction Status Date / Time No Known Allergies Allergy Verified 06/01/19 23:26 Home Medications: Ambulatory Orders Bimatoprost [Lumigan] 1 drop OU HS 04/14/16 Levalbuterol Tartrate [Xopenex Hfa] 15 gm IH DAILY 09/02/17 Carvedilol [Coreg -] 25 mg PO BID #60 tablet 09/06/17 Fluticasone/Vilanterol [Breo Ellipta 100-25 Mcg INH] 1 each IH DAILY 12/09/18 Sitagliptin Phosphate [Januvia] 100 mg PO DAILY 30 Days #30 tablet 12/13/18 Anemia: No Asthma: Yes (ON ALBUTEROL INHALER) Cancer: No Cardiac Disorders: No CVA: No COPD: No CHF: No DVT: Yes (Right leg) Dementia: No Diabetes: Yes (BORDERLINE) GI Disorders: No Disorders: No HTN: Yes Hypercholesterolemia: No Kidney Stones: No Liver Disease: No Seizures: No Thyroid Disease: No - Surgical History Neurologic Surgery: Yes (R frontal craniotomy, subdural hematoma) Orthopedic Surgery: Yes (RIGHT KNEE REPLACEMENT IN 2005) - Reproductive History Testicular Surgery: No - Immunization History Td Vaccination: Yes TDAP Vaccination: Yes Immunization Up to Date: Yes - Psycho Social/Smoking Cessation Hx Smoking History: Never smoked Have you smoked in the past 12 months: No If you are a former smoker, when did you quit?: 1973 Hx Alcohol Use: No (HX OF) Drug/Substance Use Hx: No Substance Use Type: Alcohol Hx Substance Use Treatment: No Trauma Specific PMHX - Complaint Specific PMHX Arthritis: Yes *Physical Exam - Vital Signs Last Vital Signs Temp Pulse Resp BP Pulse Ox 98.5 F 93 H 18 140/82 100 06/01/19 23:11 06/01/19 23:11 06/01/19 23:11 06/01/19 23:11 06/01/19 23:11 - Physical Exam General Appearance: No: Apparent Distress, Disheveled, Alcohol on Breath HEENT: positive: MIGUEL Respiratory/Chest: positive: Lungs Clear, Normal Breath Sounds. negative: Respiratory Distress Cardiovascular: positive: Regular Rhythm, Regular Rate, S1, S2. negative: Murmur Gastrointestinal/Abdominal: positive: Soft. negative: Tender Extremity: positive: Other (no evidence of trauma to extremities) Neurologic: positive: Fully Oriented, Alert ED Treatment Course - RADIOLOGY Radiology Studies Ordered: Category Date Time Status CERVICAL SPINE CT W/O CONTR [CT] Stat CT Scan 06/02/19 00:[address] WITHOUT CONTRAST [CT] Stat CT Scan 06/02/19 00:37 Taken Medical Decision Making - Medical Decision Making 84 y/o M with hx of alcohol abuse, HTN, COPD, asthma, BPH, afib (not on AC) presents with family; family is concerned about head injury as patient was found inebriated on the bedroom floor by the today. No fall was witnessed. Patient has been drinking alcohol heavily for the past few weeks. Patient currently denies any complaints; just states he wants to sleep. Denies sob, cp, abd pain, vomiting, headaches. Head/cervical CT negative Patient does not appear intoxicated and is A&Ox3 Stable for dc 06/02/19 02:55 Discharge - Discharge Information Problems reviewed: Yes Clinical Impression/Diagnosis: Alcohol intoxication Qualifiers: Complication of substance-induced condition: uncomplicated Qualified Code(s): F10.920 - Alcohol use, unspecified with intoxication, uncomplicated Condition: Stable Disposition: HOME - Admission No - Additional Discharge Information Prescription Drug Monitoring Program (I-STOP) results: I-STOP not reviewed - Follow up/Referral Referrals: ON STAFF,NOT [Primary Care Provider] - - Patient Discharge Instructions Patient Printed Discharge Instructions: DI for Alcohol Abuse Additional Instructions: Thank you for choosing [facility]. It was a pleasure taking care of you. Your CT scan of the head and cervical spine were unremarkable Refrain from drinking large amounts of alcohol Return to the Emergency Department if your symptoms worsen or persist or have other concerning symptoms. - Post Discharge Activity
[2019-06-02] MEDS ORDERED: SODIUM CHLORIDE 0.9% 500 ML INFUS.BAG IV ONE ×2 (07:16→07:36)
[2019-06-02] MEDS ORDERED: chlordiazePOXIDE HCL 25 MG CAPSULE PO ONE (07:35)
[2019-06-02] MEDS ORDERED: chlordiazePOXIDE HCL 25 MG CAPSULE ONE (07:36)
--- NOTE | 2019-06-02 07:51 | PDOC ---
*Physical Exam - Vital Signs Last Vital Signs Temp Pulse Resp BP Pulse Ox 98.5 F 104 H 18 139/71 96 06/01/19 23:11 06/02/19 03:42 06/02/19 03:42 06/02/19 03:42 06/02/19 03:42 - Physical Exam General Appearance: Yes: Mild Distress HEENT: positive: Normal ENT Inspection Neck: positive: Supple Respiratory/Chest: positive: Lungs Clear Cardiovascular: positive: Regular Rhythm, Regular Rate Gastrointestinal/Abdominal: positive: Protuberent Rectal Exam: positive: deferred Musculoskeletal: positive: Normal Inspection Extremity: positive: Normal Inspection Integumentary: positive: Normal Color Neurologic: positive: Alert, Normal Mood/Affect Medical Decision Making - Medical Decision Making Patient was discharged by night team Stated this morning he felt dehydrated - gave him a liter of fluid This morning he decided he did not want to leave and wanted to goto detox Sent patient to detox Discharge - Discharge Information Problems reviewed: Yes Clinical Impression/Diagnosis: Alcohol intoxication Qualifiers: Complication of substance-induced condition: uncomplicated Qualified Code(s): F10.920 - Alcohol use, unspecified with intoxication, uncomplicated Condition: Stable Disposition: HOME - Admission No - Follow up/Referral Referrals: ON STAFF,NOT [Primary Care Provider] - - Patient Discharge Instructions Patient Printed Discharge Instructions: DI for Alcohol Abuse Additional Instructions: Thank you for choosing [facility]. It was a pleasure taking care of you. Your CT scan of the head and cervical spine were unremarkable Refrain from drinking large amounts of alcohol Return to the Emergency Department if your symptoms worsen or persist or have other concerning symptoms. - Post Discharge Activity
[2019-06-02 08:53] VITALS: BP 144/88; PULSE 108; TEMP 97.8
--- NOTE | 2019-06-02 11:51 | EKG ---
Test Reason : Blood Pressure : / mmHG Vent. Rate : 108 BPM Atrial Rate : 108 BPM P-R Int : 196 ms QRS Dur : 088 ms QT Int : 360 ms P-R-T Axes : 067 -26 081 degrees QTc Int : 482 ms SINUS TACHYCARDIA WITH PREMATURE ATRIAL COMPLEXES WITH ABERRANT CONDUCTION SEPTAL INFARCT , AGE UNDETERMINED ABNORMAL ECG WHEN COMPARED WITH ECG OF 09-DEC-2018 09:19, FUSION COMPLEXES ARE NO LONGER PRESENT PREMATURE VENTRICULAR COMPLEXES ARE NO LONGER PRESENT ABERRANT CONDUCTION IS NOW PRESENT SEPTAL INFARCT IS NOW PRESENT Confirmed by JULIO ROSA MD ([id number]) on 06/02/2019 11:51:19 AM Referred By: Confirmed By:JULIO ROSA MD
== END 2019-06-02 09:00 | disposition home or self-care (01) ==
LOC: JER 23:08
DX: F10.920 Alcohol use, unspecified with intoxication, uncomplicated (principal); W18.39XA Other fall on same level, initial encounter; Y93.89 Activity, other specified; Y92.013 Bedroom of single-family (private) house as the place of occurrence of the external cause; Y99.8 Other external cause status; I10 Essential (primary) hypertension; J45.909 Unspecified asthma, uncomplicated; E11.9 Type 2 diabetes mellitus without complications; Z79.84 Long term (current) use of oral hypoglycemic drugs; Z86.718 Personal history of other venous thrombosis and embolism; Z96.651 Presence of right artificial knee joint
CPT/HCPCS: 70450-TC; 72125-TC; 93005; 93010; 99285-25

== ENCOUNTER 2019-06-02 11:59 | Inpatient (IN) | payer OTHER ==
[2019-06-02 12:15] VITALS: BMI 33.0
[2019-06-02] MEDS ORDERED: chlordiazePOXIDE HCL 25 MG CAPSULE PO ONE ×2 (12:33→12:58)
--- NOTE | 2019-06-02 12:34 | PDOC ---
History of Present Illness - General Chief Complaint: Weakness Stated Complaint: Weakness Time Seen by Provider: 06/02/19 12:22 - History of Present Illness Initial Comments: 06/02/19 12:24 84 yo M with h/o Etoh abuse, HTN, DVT, A-fib, COPD/asthma who p/w fall risk, [place] [place] [facility] evaluated at [facility] ED 06/02/19 AM for suspected fall with absent head trauma or LOC. Negative head CT. Patient reports that he drinks 1/2 pint "kisha wine," daily and last drink was (06/01/19). Provider at [facility] (Dr. Cornejo) called at 1103 AM, to give report. He states that patient unstable on feet, usually ambulatory without assistance, and is concerned that patient is high fall risk. Also states that he is concerned that patient starting to undergo Etoh Withdrawal. . Patient denies LUND, hallucinations, SI/HI, vision change, palpitations, cough, wheezing, orthopena, PND, leg swelling/pain, N/V, F,C, CP, SOB, urinary complaints, hematuria, BPR, abdominal pain, diarrhea, constipation, lightheadedness, weakness, sensory changes. PMHx: as noted above ROS: as noted SHx: Distant tobacco use, daily Etoh Allergies: NKDA Past History - Past Medical History Allergies/Adverse Reactions: Allergies Allergy/AdvReac Type Severity Reaction Status Date / Time No Known Allergies Allergy Verified 06/02/19 12:15 Home Medications: Ambulatory Orders Bimatoprost [Lumigan] 1 drop OU HS 04/14/16 Levalbuterol Tartrate [Xopenex Hfa] 15 gm IH DAILY 09/02/17 Carvedilol [Coreg -] 25 mg PO BID #60 tablet 09/06/17 Fluticasone/Vilanterol [Breo Ellipta 100-25 Mcg INH] 1 each IH DAILY 12/09/18 Sitagliptin Phosphate [Januvia] 100 mg PO DAILY 30 Days #30 tablet 12/13/18 Anemia: No Asthma: Yes (ON ALBUTEROL INHALER) Cancer: No Cardiac Disorders: No CVA: No COPD: No CHF: No DVT: Yes (Right leg) Dementia: No Diabetes: Yes (BORDERLINE) GI Disorders: No Disorders: No HTN: Yes Hypercholesterolemia: No Kidney Stones: No Liver Disease: No Seizures: No Thyroid Disease: No - Surgical History Neurologic Surgery: Yes (R frontal craniotomy, subdural hematoma) Orthopedic Surgery: Yes (RIGHT KNEE REPLACEMENT IN 2006) - Reproductive History Testicular Surgery: No - Immunization History Td Vaccination: Yes TDAP Vaccination: Yes Immunization Up to Date: Yes - Psycho Social/Smoking Cessation Hx Smoking History: Never smoked Have you smoked in the past 12 months: No If you are a former smoker, when did you quit?: 1972 Information on smoking cessation initiated: No Hx Alcohol Use: No Drug/Substance Use Hx: No Substance Use Type: Alcohol Hx Substance Use Treatment: No Review of Systems - Review of Systems Comments:: 06/02/19 12:39 GENERAL/CONSTITUTIONAL: No fever or chills. No weakness. HEAD, EYES, EARS, NOSE AND THROAT: No change in vision. No ear pain or discharge. No sore throat. CARDIOVASCULAR: No chest pain or shortness of breath RESPIRATORY: No cough, wheezing, or hemoptysis. GASTROINTESTINAL: No nausea, vomiting, diarrhea or constipation. GENITOURINARY: No dysuria, frequency, or change in urination. MUSCULOSKELETAL: No joint or muscle swelling or pain. No neck or back pain. SKIN: No rash NEUROLOGIC: + Tremors. No headache, vertigo, loss of consciousness, or change in strength/sensation. ENDOCRINE: No increased thirst. No abnormal weight change HEMATOLOGIC/LYMPHATIC: No anemia, easy bleeding, or history of blood clots. ALLERGIC/IMMUNOLOGIC: No hives or skin allergy. *Physical Exam - Vital Signs Last Vital Signs Temp Pulse Resp BP Pulse Ox 97.7 F 109 H 18 162/98 100 06/02/19 12:10 06/02/19 12:10 06/02/19 12:10 06/02/19 12:10 06/02/19 12:10 - Physical Exam 06/02/19 12:39 GENERAL: Awake, alert, and fully oriented, in no acute distress HEAD: No signs of trauma, normocephalic, atraumatic EYES: PERRLA, EOMI, sclera anicteric, conjunctiva clear ENT: + tongue fasiculations. + Dry mucous membranes. Auricles normal inspection , hearing grossly normal, nares patent, oropharynx clear without exudates. NECK: Normal ROM, supple, no lymphadenopathy, JVD, or masses LUNGS: No distress, speaks full sentences, clear to auscultation bilaterally HEART: Regular rate and rhythm, normal S1 and S2, no murmurs, rubs or gallops, peripheral pulses normal and equal bilaterally. ABDOMEN: Soft, nontender, normoactive bowel sounds. No guarding, no rebound. No masses EXTREMITIES : Tremulous on exam, with tongue fasiculations. Normal inspection, Normal range of motion, no edema. No clubbing or cyanosis NEUROLOGICAL: Cranial nerves II through XII grossly intact. gait unsteady, ataxic. slow speech, no focal sensorimotor deficits SKIN: Warm, Dry, normal turgor, no rashes or lesions noted ED Treatment Course - LABORATORY CBC & Chemistry Diagram: 06/02/19 13:00 06/02/19 13:00 - RADIOLOGY Radiology Studies Ordered: Category Date Time Status CXRPORT [CHEST X-RAY PORTABLE*] [RAD] Stat Radiology 06/02/19 12:24 Ordered Medical Decision Making - Medical Decision Making 06/02/19 12:38 84 yo M with h/o Etoh abuse, HTN, A-fib, COPD/asthma who p/w fall risk, [place] [place] BP 162/98, HR 109, vitals otherwise wnl, AF, A&Ox3. Physical exam notable for tremulous appearing, dry mucous membranes, ataxic gait. Patient CIWA~7, likely Etoh withdrawal acute. Last alcoholic beverage 06/01/19. Currently w/out evidence DT's. Plan to admit Etoh withdrawal. ED Course: 06/02/19 13:06 EKG: TWI lead I,Avl, V4-V6. + Fusion copmplexes. NSR HR 115, with absent TODD, STD. Nml interval duration and axis. Nml R wave progression. Absent Q waves. Unchanged from prior 12-09-. 06/02/19 13:54 CXR: No acute pathology 06/02/19 14:11 Laboratory Tests 06/02/19 06/02/19 06/02/19 13:00 13:00 13:00 WBC 6.2 Hgb 13.5 Hct 40.9 D Plt Count 198 D Sodium 140 Potassium 4.4 BUN 12.1 Creatinine 0.8 Troponin I 0.10 H Alcohol, Quantitative 71.7 H 06/02/19 14:19 trops chronically elevated. Patient without CP, SOB, diaphoresis. Pt. endorsed and admitted Dr. Mejia Discharge - Discharge Information Problems reviewed: Yes Clinical Impression/Diagnosis: Risk for falls Alcohol withdrawal Qualifiers: Complication of substance-induced condition: uncomplicated Qualified Code(s): F10.230 - Alcohol dependence with withdrawal, uncomplicated - Admission Yes - Follow up/Referral - Patient Discharge Instructions - Post Discharge Activity
[2019-06-02] MEDS ORDERED: SODIUM CHLORIDE 1,000 ML IV STA (12:58)
[2019-06-02] MEDS ORDERED: chlordiazePOXIDE HCL 25 MG CAPSULE ONE (13:02)
--- NOTE | 2019-06-02 13:10 | PDOC ---
Attending Attestation - Resident Resident Name: MalickBryceNader - ED Attending Attestation I have performed the following: I have examined & evaluated the patient, The case was reviewed & discussed with the resident, I agree w/resident's findings & plan - HPI HPI: 06/02/19 13:09 84 yo M with h/o Etoh abuse, HTN, DVT, A-fib, COPD/asthma who p/w fall risk, Etoh withdrawal from outside facility ([facility]). Patient recently evaluated at [facility] ED 06/02/19 AM for suspected fall with absent head trauma or LOC. Negative head CT. Patient reports that he drinks 1/2 pint "kisha wine," daily and last drink was (06/01/19). Provider at [facility] (Dr. Cornejo) called at 1103 AM, to give report. He states that patient unstable on feet, usually ambulatory without assistance, and is concerned that patient is high fall risk. Also states that he is concerned that patient starting to undergo Etoh Withdrawal. . - Physicial Exam PE: 06/02/19 13:09 Agree with the resident's HPI and PE as documented in the electronic medical record. NAD, sleeping, but arousable. +very tremulous, +tongue fasciculations. EOMI, PERRL, nl conjunctiva, anicteric; neck supple. lungs clear, +tachycardic, abdomen soft nontender. no rebound, guarding. Back nontender. [place] x4, no focal neuro deficits. No peripheral edema. normal color for ethnicity, WWP. speech clear. 06/02/19 14:23 - Critical Care Time Total Critical Care Time: 40 (acute alcohol withdrawal) Critical Care Statement: The care of this patient involved high complexity decision making to prevent further life threatening deterioration of the patient 's condition and/or to evaluate & treat vital organ system(s) failure or risk of failure. - Medical Decision Making 06/02/19 13:09 Vital Signs Temp Pulse Resp BP Pulse Ox 97.7 F 109 H 18 162/98 100 06/02/19 12:10 06/02/19 12:10 06/02/19 12:10 06/02/19 12:10 06/02/19 12:10 Vital signs reviewed, no fevers, tachycardia is noted, hypertensive. Normal saturations, breathing comfortably. Differential diagnosis includes alcohol withdrawal, intoxication, anemia, electrolyte/metabolic derangements, infection. Reviewed work-up from last night as patient was discharged to detox. However sent back for his "unstable" condition with persistent tachycardia and concerns for alcohol withdrawal. CT scan and C-spine from last night negative for acute traumatic injuries or bleed, no need to repeat, as no new trauma. We will check labs and lites, repeat EKG here with sinus tachycardia, will treat alcohol withdrawal start with Librium p.o., IV fluids and banana bag with MTV/folic/thiamine and reassess most likely uncomplicated alcohol w/d, ativan 2mg IV x1 now for moderate level of alcohol w/d +trop elevated, 0.10, has been elevated chronically previously treating as nstemi, ASA now, ECG only nonspecific T wave abnormalities with sinus tachycardia. admission tele for treatment, medical management admitting to Dr Jaramillo 06/02/19 14:23 06/02/19 14:25 Heart Score/ECG Review #1 ECG reviewed & interpreted by me at: 12:15 General ECG Interpretation: Sinus Rhythm, Normal Intervals Compared to previous ECG there are: Changes noted 06/02/19 13:11 EKG sinus tachycardia 115 bpm, no interval abnormalities, narrow QRS, ST and T wave segments and morphology normal. Nonspecific T wave abnormalities
[2019-06-02] MEDS ORDERED: FOLIC ACID INJECTION - 1 MG, THIAMINE HCL 100 MG, MULTIVIT INJECTION ADULT 10 ML in SOD... IVPB ONE ×2 (13:11→14:17)
[2019-06-02 13:33] LABS: BASO % 1.5 % (0-2.0); EOS % 1.3 % (0-4.5); HEMATOCRIT 40.9 % (35.4-49); HEMOGLOBIN 13.5 GM/dL (11.7-16.9); MCH 32.5 pg (25.7-33.7); MEAN CELL VOLUME 98.5 fl (80-96); MEAN PLT VOLUME 8.2 fl (7.5-11.1); MONO % 11.7 % (3.8-10.2); NEUT % 56.5 % (42.8-82.8); PLATELET COUNT 198 K/MM3 (134-434); RBC 4.15 M/mm3 (4.00-5.60); RDW 18.8 % (11.9-15.9); WHITE BLOOD COUNT 6.2 K/mm3 (4.0-10.0)
[2019-06-02 14:07] LABS: BILIRUBIN,TOTAL 0.6 mg/dL (0.2-1); BLOOD UREA NITROGEN 12.1 mg/dL (7-18); CALCIUM 8.5 mg/dL (8.5-10.1); CREATININE 0.8 mg/dL (0.55-1.3); POTASSIUM 4.4 mmol/L (3.5-5.1); TOT PROT 7.4 g/dl (6.4-8.2)
[2019-06-02 14:14] LABS: INR 1.24 (0.83-1.09); PROTHROMBIN TIME (PATIENT) 14.7 SEC (9.7-13.0)
[2019-06-02] MEDS ORDERED: ASPIRIN 81 MG CHEWABLE TABLETS PO ONE (14:24)
[2019-06-02] MEDS ORDERED: FOLIC ACID 1 MG TABLET (FP) PO ONE (14:29)
[2019-06-02] MEDS ORDERED: chlordiazePOXIDE HCL 10 MG CAPSULE PO PRN (15:08)
[2019-06-02] MEDS ORDERED: LORazepam 2 MG/ML SDV VIAL IVPUSH PRN (15:10)
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
[2019-06-02] MEDS ORDERED: FOLIC ACID 1 MG TABLET (FP) ONE (15:53)
[2019-06-02] MEDS ORDERED: NIFEdipine E.R. 30 MG TABLET ONE (15:53)
[2019-06-02] MEDS ORDERED: THIAMINE HCL 200 MG/2 ML VIAL ONE (15:53)
[2019-06-02] MEDS: NIFEdipine E.R. 30 MG TABLET PO SCH (15:58)
[2019-06-02] MEDS: THIAMINE HCL 200 MG/2 ML VIAL IVPB SCH (15:58)
--- NOTE | 2019-06-02 16:12 | EKG ---
Test Reason : Blood Pressure : / mmHG Vent. Rate : 115 BPM Atrial Rate : 115 BPM P-R Int : 190 ms QRS Dur : 094 ms QT Int : 304 ms P-R-T Axes : 057 -06 130 degrees QTc Int : 420 ms SINUS TACHYCARDIA WITH FUSION COMPLEXES T WAVE ABNORMALITY, CONSIDER LATERAL ISCHEMIA ABNORMAL ECG WHEN COMPARED WITH ECG OF 02-JUN-2019 08:44, FUSION COMPLEXES ARE NOW PRESENT ABERRANT CONDUCTION IS NO LONGER PRESENT CRITERIA FOR SEPTAL INFARCT ARE NO LONGER PRESENT INVERTED T WAVES HAVE REPLACED NONSPECIFIC T WAVE ABNORMALITY IN LATERAL LEADS Confirmed by JULIO ROSA MD ([id number]) on 06/02/2019 4:12:00 PM Referred By: Confirmed By:JULIO ROSA MD
[2019-06-02] MEDS ORDERED: LORazepam 2 MG/ML SDV VIAL ONE (16:54)
[2019-06-02] MEDS: INSULIN SLIDING SCALE (NOVOLOG) 1 VIAL SQ SCH ×2 (19:02→22:00)
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
[2019-06-02] MEDS: CARVEDILOL 25 MG TABLET (FP) PO SCH (22:00)
[2019-06-02] MEDS: chlordiazePOXIDE HCL 25 MG CAPSULE PO SCH (22:00)
[2019-06-03] MEDS: chlordiazePOXIDE HCL 25 MG CAPSULE PO SCH ×3 (05:45→22:00)
[2019-06-03] MEDS: INSULIN SLIDING SCALE (NOVOLOG) 1 VIAL SQ SCH ×4 (06:05→22:00)
[2019-06-03 06:12] LABS: PH,URINE 7.5 (5.0-8.0); URINE APPEARANCE Clear; URINE BILIRUBIN Negative (NEGATIVE); URINE COLOR Yellow; URINE GLUCOSE (UA) Negative (NEGATIVE); URINE KETONE Trace (NEGATIVE); URINE LEUK ESTERASE Negative (NEGATIVE); URINE NITRITE Negative (NEGATIVE); URINE PROTEIN Trace (NEGATIVE); URINE UROBILINOGEN 0.2 mg/dL (0.2-1.0)
[2019-06-03] MEDS: ALBUTEROL SO4 2.5/IPRATROPIUM 0.5 INH SOL 3 ML VIAL.NEB. NEB PRN (06:20)
[2019-06-03 06:45] LABS: COCAINE, UR NEGATIVE ng/ml (CUTOFF=300); METHADONE, UR NEGATIVE ng/ml (CUTOFF=300); OPIATES, URI NEGATIVE ng/ml (CUTOFF=300); PHENCYCLIDINE,URINE NEGATIVE ng/ml (CUTOFF=25); URINE AMPHETAMINES NEGATIVE ng/ml (CUTOFF=500); URINE BARBITURATES NEGATIVE ng/ml (CUTOFF=200)
[2019-06-03 06:46] LABS: URINE BENZODIAZEPINES POSITIVE ng/ml (CUTOFF=200)
[2019-06-03 07:22] LABS: URINE RBC 14 /hpf (0-4); URINE WBC 7 /hpf (0-5)
[2019-06-03 07:23] LABS: EPI CELLS 2 /HPF (0-5/HPF); HYALINE CASTS 5 /lpf (0-8); URINE BACTERIA 24 /hpf (NEGATIVE)
[2019-06-03 08:09] LABS: EOS % 3.5 % (0-4.5); HEMATOCRIT 33.6 % (35.4-49); HEMOGLOBIN 11.4 GM/dL (11.7-16.9); LYMPH % 29.8 % (8-40); MEAN CELL VOLUME 97.2 fl (80-96); MEAN PLT VOLUME 8.4 fl (7.5-11.1); MONO % 9.9 % (3.8-10.2); NEUT % 55.8 % (42.8-82.8); PLATELET COUNT 173 K/MM3 (134-434); RBC 3.46 M/mm3 (4.00-5.60); RDW 18.4 % (11.9-15.9); WHITE BLOOD COUNT 6.1 K/mm3 (4.0-10.0)
[2019-06-03 08:38] LABS: ALBUMIN 2.8 g/dl (3.4-5.0); CREATININE 0.9 mg/dL (0.55-1.3); MAGNESIUM 1.8 mg/dL (1.8-2.4); PHOSPHOROUS 2.7 mg/dL (2.5-4.9); POTASSIUM 3.3 mmol/L (3.5-5.1); TOT PROT 6.4 g/dl (6.4-8.2)
[2019-06-03] MEDS: NIFEdipine E.R. 30 MG TABLET PO SCH (09:07)
[2019-06-03] MEDS: CARVEDILOL 25 MG TABLET (FP) PO SCH ×2 (09:07→22:00)
[2019-06-03] MEDS: MULTIVITAMINS (DAILY MVI) TABLET (FP) PO SCH (09:07)
[2019-06-03] MEDS: THIAMINE HCL 200 MG/2 ML VIAL IVPB SCH (09:09)
--- NOTE | 2019-06-03 10:35 | ECHO ---
Name: EVELYN ARCOS Exam:Adult Echocardiogram Study Date: 06/03/2019 09:27 AM Age: 84 yrs Reason For Study: increased tnI Height: 70 in Weight: 230 lb BSA: 2.2 m2 MMode/2D Measurements & Calculations LVOT diam: 2.3 cm LVLd ap4: 8.1 cm EDV(MOD-sp4): 139.0 ml LVLs ap4: 7.8 cm ESV(MOD-sp4): 78.2 ml SV(MOD-sp4): 60.8 ml LAV (MOD-bp): 51.8 ml RV S Tha: 14.6 cm/sec Doppler Measurements & Calculations MV E max tha: 93.6 cm/sec Ao V2 max: 107.4 cm/sec MV A max tha: 41.2 cm/sec Ao max P.8 mmHg MV E/A: 2.3 MV dec time: 0.08 sec ROSA MARIA(V,D): 2.9 cm2 LV V1 max P.2 mmHg PA V2 max: 86.9 cm/sec LV V1 max: 74.7 cm/sec PA max P.1 mmHg Med Peak E' Tah: 5.7 cm/sec Med E/e': 16.5 Lat Peak E' Tha: 6.7 cm/sec Lat E/e': 13.9 Left Ventricle There is moderate concentric left ventricular hypertrophy. Ejection Fraction = 40-45%. The transmitra l spectral Doppler flow pattern is suggestive of restrictive physiology. Moderate global hypokinesis. Right Ventricle The right ventricle is normal in size and function. Atria The left atrium is mildly dilated. Mitral Valve The mitral valve is normal in structure and function. There is no mitral valve stenosis. There is tra ce mitral regurgitation. Tricuspid Valve The tricuspid valve is normal in structure and function. There is mild tricuspid regurgitation. Aortic Valve The aortic valve opens well. No hemodynamically significant valvular aortic stenosis. No aortic regur gitation is present. Pulmonic Valve The pulmonic valve is not well seen, but is grossly normal. There is no pulmonic valvular stenosis. Great Vessels The aortic root is normal size. Pericardium/Pleura There is no pericardial effusion. Interpretation Summary Moderate global hypokinesis. Ejection Fraction = 40-45%. The transmitral spectral Doppler flow pattern is suggestive of restrictive physiology. The right ventricle is normal in size and function. The left atrium is mildly dilated. There is moderate concentric left ventricular hypertrophy. There is mild tricuspid regurgitation. There is no pericardial effusion. MD Woods *Ovidio 06/03/2019 10:35 AM
--- NOTE | 2019-06-03 11:30 | EKG ---
Test Reason : Blood Pressure : / mmHG Vent. Rate : 119 BPM Atrial Rate : 119 BPM P-R Int : 190 ms QRS Dur : 094 ms QT Int : 328 ms P-R-T Axes : 067 -08 096 degrees QTc Int : 461 ms SINUS TACHYCARDIA WITH FUSION COMPLEXES CANNOT RULE OUT ANTERIOR INFARCT , AGE UNDETERMINED NONSPECIFIC T WAVE ABNORMALITY ABNORMAL ECG WHEN COMPARED WITH ECG OF 06/02/2019, poor R wave progression noted. CLINICAL CORRELATION IS RECOMMENDED Confirmed by SAMMY ARRINGTON MD ([id number]) on 06/03/2019 11:29:50 AM Referred By: Confirmed By:SAMMY ARRINGTON MD
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
--- NOTE | 2019-06-03 14:32 | CON.CARD ---
Cardiology Consult (text) - Consultation Consultation Note: cc: etoh withdrawal hpi: 84 m hx pafib, htn, chf, here with etoh withdrawal. No cp sob palps dizzy loc pnd orthopnea le edema. pmh: per hpi psh: craniotomy social: +eoth abuse, ex tob ros: per hpi; all others nl fam: no premature cad, scd meds: Home Medications Medication Instructions Recorded Carvedilol [Coreg -] 25 mg PO BID #60 tablet 09/06/17 Sitagliptin Phosphate [Januvia] 100 mg PO DAILY 30 Days #30 tablet 12/13/18 Nifedipine ER [Procardia Xl -] 60 mg PO DAILY 06/02/19 pe: Vital Signs Period Temp Pulse Resp BP Sys/Romero Pulse Ox Last 24 Hr 97.6 F-98.4 F 110-116 - 149-163/84-99 94-98 nad no jvd rrr s1s2 nomrg cta bl nl eff aao3 no le e/c/c abd nt nd pos bs no jaundice diaphoresis pos dp pt no carotid bruits Laboratory Last Values WBC 6.1 K/mm3 (4.0-10.0) 06/03/19 05:50 RBC 3.46 M/mm3 (4.00-5.60) L 06/03/19 05:50 Hgb 11.4 GM/dL (11.7-16.9) L 06/03/19 05:50 Hct 33.6 % (35.4-49) L D 06/03/19 05:50 MCV 97.2 fl (80-96) H 06/03/19 05:50 MCH 33.0 pg (25.7-33.7) 06/03/19 05:50 MCHC 34.0 g/dl (32.0-35.9) 06/03/19 05:50 RDW 18.4 % (11.9-15.9) H 06/03/19 05:50 Plt Count 173 K/MM3 (134-434) 06/03/19 05:50 MPV 8.4 fl (7.5-11.1) 06/03/19 05:50 Absolute Neuts (auto) 3.4 K/mm3 (1.5-8.0) 06/03/19 05:50 Neutrophils % 55.8 % (42.8-82.8) 06/03/19 05:50 Lymphocytes % 29.8 % (8-40) 06/03/19 05:50 Monocytes % 9.9 % (3.8-10.2) 06/03/19 05:50 Eosinophils % 3.5 % (0-4.5) D 06/03/19 05:50 Basophils % 1.0 % (0-2.0) 06/03/19 05:50 Nucleated RBC % 0 % (0-0) 06/03/19 05:50 PT with INR 14.70 SEC (9.7-13.0) H 06/02/19 13:00 INR 1.24 (0.83-1.09) H 06/02/19 13:00 Sodium 142 mmol/L (136-145) 06/03/19 05:50 Potassium 3.3 mmol/L (3.5-5.1) L 06/03/19 05:50 Chloride 108 mmol/L (98-107) H 06/03/19 05:50 Carbon Dioxide 28 mmol/L (21-32) 06/03/19 05:50 Anion Gap 6 MMOL/L (8-16) L 06/03/19 05:50 BUN 9.0 mg/dL (7-18) 06/03/19 05:50 Creatinine 0.9 mg/dL (0.55-1.3) 06/03/19 05:50 Est GFR (CKD-EPI)AfAm 91.22 06/03/19 05:50 Est GFR (CKD-EPI)NonAf 78.71 06/03/19 05:50 POC Glucometer 106 UNITS (80-120) 06/03/19 12:15 Random Glucose 114 mg/dL (74-106) H 06/03/19 05:50 Hemoglobin A1c % 5.2 % (4.2-6.3) 06/03/19 06:00 Calcium 8.0 mg/dL (8.5-10.1) L 06/03/19 05:50 Phosphorus 2.7 mg/dL (2.5-4.9) 06/03/19 05:50 Magnesium 1.8 mg/dL (1.8-2.4) 06/03/19 05:50 Total Bilirubin 1.0 mg/dL (0.2-1) 06/03/19 05:50 AST 58 U/L (15-37) H 06/03/19 05:50 ALT 37 U/L (13-61) 06/03/19 05:50 Alkaline Phosphatase 77 U/L (45-117) 06/03/19 05:50 Creatine Kinase 198 U/L (26-308) 06/02/19 13:00 Creatine Kinase Index 1.2 % (0.0-5.0) 06/02/19 13:00 CK-MB (CK-2) 2.4 ng/mL (0.5-3.6) 06/02/19 13:00 Troponin I 0.11 ng/ml (0.00-0.05) H 06/03/19 01:00 Total Protein 6.4 g/dl (6.4-8.2) 06/03/19 05:50 Albumin 2.8 g/dl (3.4-5.0) L 06/03/19 05:50 Urine Color Yellow 06/03/19 05:30 Urine Appearance Clear 06/03/19 05:30 Urine pH 7.5 (5.0-8.0) D 06/03/19 05:30 Ur Specific [place] 1.015 (1.010-1.035) 06/03/19 05:30 Urine Protein Trace (NEGATIVE) 06/03/19 05:30 Urine Glucose (UA) Negative (NEGATIVE) 06/03/19 05:30 Urine Ketones Trace (NEGATIVE) 06/03/19 05:30 Urine Blood Negative (NEGATIVE) 06/03/19 05:30 Urine Nitrite Negative (NEGATIVE) 06/03/19 05:30 Urine Bilirubin Negative (NEGATIVE) 06/03/19 05:30 Urine Urobilinogen 0.2 mg/dL (0.2-1.0) 06/03/19 05:30 Ur Leukocyte Esterase Negative (NEGATIVE) 06/03/19 05:30 Urine WBC (Auto) 7 /hpf (0-5) 06/03/19 05:30 Urine RBC (Auto) 14 /hpf (0-4) 06/03/19 05:30 Urine Casts (Auto) 5 /lpf (0-8) 06/03/19 05:30 U Epithel Cells (Auto) 2 /HPF (0-5/HPF) 06/03/19 05:30 Urine Bacteria (Auto) 24 /hpf (NEGATIVE) 06/03/19 05:30 Opiates Screen Negative ng/ml (BRYCFQ=184) 06/03/19 05:30 Methadone Screen Negative ng/ml (YWVGIM=618) 06/03/19 05:30 Barbiturate Screen Negative ng/ml (UCJIUF=962) 06/03/19 05:30 Phencyclidine Screen Negative ng/ml (CUTOFF=25) 06/03/19 05:30 Ur Amphetamines Screen Negative ng/ml (MJQJYG=826) 06/03/19 05:30 MDMA (Ecstasy) Screen Negative ng/ml (MPVUSL=177) 06/03/19 05:30 Benzodiazepines Screen Positive ng/ml (IKWDTS=117) A* 06/03/19 05:30 Cocaine Screen Negative ng/ml (KXXCPV=065) 06/03/19 05:30 U Marijuana (THC) Screen Negative ng/ml (CUTOFF=50) 06/03/19 05:30 Alcohol, Quantitative 71.7 mg/dL (0.0-5.0) H 06/02/19 13:00 cxr: clear lungs ecg: sinus tachy, nl intervals, no st changes, nonspec tw changes, no sig change prior tele: sr echo 05/2019: lvef 40-45, global, nl rv, lae, mild tr, lvh mibi 09/2017: no ischemia, lvef 48 a/p: 84 m hx pafib, htn, chf, here with etoh withdrawal. pafib: -in sr, cont bb -not on ac 2/2 etoh abuse and falls with prior sdh htn: -cont current meds chronic syst chf: -mild-mod reduced lvef, similar to 2018 mibi. no ischemia on mibi 2017. -no signs vol overload -cont bb etoh: -withdrawal tx per primary team elevated trop: -borderline trop elevation, flat trend, nl ck, similar to prior baseline values , no signs acs
[2019-06-04] MEDS: chlordiazePOXIDE 5 MG CAPSULE PO SCH ×3 (05:34→21:39)
[2019-06-04] MEDS: INSULIN SLIDING SCALE (NOVOLOG) 1 VIAL SQ SCH ×4 (06:03→21:30)
[2019-06-04] MEDS: CARVEDILOL 25 MG TABLET (FP) PO SCH ×2 (09:25→21:39)
[2019-06-04] MEDS: MULTIVITAMINS (DAILY MVI) TABLET (FP) PO SCH (09:25)
[2019-06-04] MEDS: NIFEdipine E.R. 30 MG TABLET PO SCH (09:25)
[2019-06-04] MEDS: THIAMINE HCL 200 MG/2 ML VIAL IVPB SCH (09:27)
[2019-06-04] MEDS: ALBUTEROL SO4 2.5/IPRATROPIUM 0.5 INH SOL 3 ML VIAL.NEB. NEB PRN ×3 (09:41→20:15)
--- NOTE | 2019-06-04 10:58 | PN ---
Progress Note, Physician Chief Complaint: denies CP, SOB, palps TELE: NSR, 3-4 beats NSVT- several runs History of Present Illness: EF 40-45% - Current Medication List Current Medications: Active Medications Albuterol/Ipratropium (Duoneb -) 1 amp NEB Q4H PRN PRN Reason: SHORTNESS OF BREATH Last Admin: 06/04/19 09:41 Dose: 1 amp Carvedilol (Coreg -) 25 mg PO BID [facility] Last Admin: 06/04/19 09:25 Dose: 25 mg Chlordiazepoxide HCl (Librium -) 10 mg PO Q12H PRN PRN Reason: Signs/symptoms of Withdrawal Stop: 06/05/19 23:59 Chlordiazepoxide HCl (Librium -) 10 mg PO Q8H PRN PRN Reason: Signs/symptoms of Withdrawal Stop: 06/04/19 23:59 Chlordiazepoxide HCl (Librium -) 15 mg PO Q8H [facility] Stop: 06/04/19 21:01 Last Admin: 06/04/19 05:34 Dose: 15 mg Chlordiazepoxide HCl (Librium -) 10 mg PO Q8H [facility] Stop: 06/05/19 21:01 Chlordiazepoxide HCl (Librium -) 10 mg PO ONCE ONE Stop: 06/06/19 05:01 Insulin Aspart (Novolog Vial Sliding Scale -) 1 vial SQ [facility]; Protocol Last Admin: 06/04/19 06:03 Dose: Not Given Lorazepam (Ativan Injection -) 2 mg IVPUSH Q6H PRN PRN Reason: ANXIETY Last Admin: 06/02/19 17:00 Dose: 2 mg Multivitamins/Minerals/Vitamin C (Tab-A-Vit -) 1 tab PO DAILY [facility] Last Admin: 06/04/19 09:25 Dose: 1 tab Nifedipine (Procardia Xl -) 30 mg PO DAILY [facility] Last Admin: 06/04/19 09:25 Dose: 30 mg Thiamine HCl (Vitamin B1 Injection -) 500 mg IVPB DAILY [facility] Last Admin: 06/04/19 09:27 Dose: 500 mg - Objective Vital Signs: Vital Signs Temperature 97.8 F 06/04/19 09:47 Pulse Rate 110 H 06/04/19 09:47 Respiratory Rate 20 06/04/19 09:47 Blood Pressure 148/86 06/04/19 09:47 O2 Sat by Pulse Oximetry (%) 99 06/03/19 21:00 Constitutional: Yes: No Distress, Calm Eyes: Yes: Conjunctiva Clear Cardiovascular: Yes: Regular Rate and Rhythm Respiratory: Yes: CTA Bilaterally Gastrointestinal: Yes: Soft (nt) Edema: No Peripheral Pulses WNL: Yes Neurological: Yes: Alert, Oriented ...Motor Strength: WNL Labs: CBC, BMP 06/03/19 05:50 06/03/19 05:50 INR, PTT INR 1.24 (0.83-1.09) H 06/02/19 13:00 Laboratory Tests 06/02/19 06/03/19 13:00 05:30 Benzodiazepines Screen Positive A* Alcohol, Quantitative 71.7 H - ....Imaging EKG: Image Reviewed Assessment/Plan tele: sr echo 05/2019: lvef 40-45, global, nl rv, lae, mild tr, lvh mibi 09/2017: no ischemia, lvef 48 a/p: 84 m hx pafib, htn, chf, here with etoh withdrawal: pafib: -in sr, cont bb -not on ac 2/ etoh abuse and falls with prior sdh -Can consider ASA, although PMD would be best suited to make this decision depending on his follow up and complete medical history (?gastritis, PUD) htn: -cont current meds chronic syst chf: -mild-mod reduced lvef, similar to 2018 mibi. no ischemia on mibi 2018. -no signs vol overload -cont bb NSVT: -Cont coreg -Check lytes, keep K+ > 4, Mg2+ > 2 -Will repeat stress MPI to r/o ischemic etiology although prior evaluations have proved negative. etoh: -withdrawal tx per primary team elevated trop: -borderline trop elevation, flat trend, nl ck, similar to prior baseline values , no signs acs
--- NOTE | 2019-06-04 11:17 | PN ---
Progress Note (short form) - Note Progress Note: Patient is comfortable has no chest pain no withdrawals Telemetry Few runs of small VT is seen by tire balancer Vital signs Vital Signs Period Temp Pulse Resp BP Sys/Romero Pulse Ox Last 24 Hr 97.6 F-98.5 F 103-112 - 135-155/79-89 99 Head no headache no dizziness Ear nose throat no epistaxis Cardiovascular no chest pain Pulmonary no wheezing no coughing GI no abdominal pain Endocrine no history of diabetes hypothyroidism Neuro no history of stroke Dermatology no history of stroke Locomotor no history of joint pain Rest of review of systems are negative Patient is comfortable HEENT normal Neck supple no JVD Lungs clear no wheezing Abdomen nontender no organomegaly bowel sounds normal Extremities no edema no cyanosis normal pulses Neurologically he is alert awake oriented, nonfocal Skin no rash noted Cardiovascular no gallop noted normal S1-S2 Laboratory Results - last 24 hr 06/03/19 06/03/19 06/03/19 12:15 17:43 22:01 POC Glucometer 106 113 109 06/04/19 05:35 POC Glucometer 119 Assessment and plan AA male h/o alcohol use disorder, HTN, afib (not A/C), COPD, asthma, and s/p craniotomy in October 2018 at [facility] for evacuation of SDH, and newly diagnosed diabetes (last admission), presenting from [facility] because of acute alcohol withdrawal. Alcohol withdrawals Start him on alcohol withdrawal protocol thiamine and also Librium he is comfortable this time continue same thing. High troponin level is still 0.11 on the repeat test as well he has no chest pain , Seen by tire balancer.Start on aspirin His echocardiogram shows EF of 40 to 45% he had a stress test which was done on September 2017 no ischemia. 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 Visit type - Emergency Visit Emergency Visit: Yes ED Registration Date: 06/02/19 Care time: The patient presented to the Emergency Department on the above date and was hospitalized for further evaluation of their emergent condition. - New Patient This patient is new to me today: No - Critical Care Critical Care patient: No - Discharge Referral Referred to [facility] Med P.C.: No
[2019-06-04 12:45] LABS: CREATININE 0.9 mg/dL (0.55-1.3); MAGNESIUM 1.6 mg/dL (1.8-2.4)
[2019-06-04 13:13] LABS: POTASSIUM 2.9 mmol/L (3.5-5.1)
[2019-06-04] MEDS ORDERED: POTASSIUM CHLORIDE TABS 20 MEQ TABLET.ER (FP) PO ONE (14:00)
[2019-06-04] MEDS: MAGNESIUM OXIDE 400 MG TABLET (FP) PO SCH ×2 (14:21→21:39)
[2019-06-04] MEDS: KCL 10 MEQ IVPB 10 MEQ/100 ML INFUS.BAG IVPB SCH ×2 (14:24→15:51)
[2019-06-04 21:00] LABS: BLOOD UREA NITROGEN 5.8 mg/dL (7-18); CALCIUM 7.9 mg/dL (8.5-10.1); CREATININE 1.1 mg/dL (0.55-1.3); POTASSIUM 4.1 mmol/L (3.5-5.1)
[2019-06-04] MEDS ORDERED: INSULIN (NOVOLOG) ASPART 100 UNITS/ML 10ML VIAL ONE (21:45)
[2019-06-05] MEDS ORDERED: chlordiazePOXIDE HCL 10 MG CAPSULE PO PRN
[2019-06-05] MEDS: ALBUTEROL SO4 2.5/IPRATROPIUM 0.5 INH SOL 3 ML VIAL.NEB. NEB PRN ×2 (02:35→07:36)
[2019-06-05] MEDS: chlordiazePOXIDE HCL 10 MG CAPSULE PO SCH ×3 (05:51→21:14)
[2019-06-05] MEDS: INSULIN SLIDING SCALE (NOVOLOG) 1 VIAL SQ SCH ×4 (06:08→21:28)
[2019-06-05 08:02] LABS: BLOOD UREA NITROGEN 4.3 mg/dL (7-18); CALCIUM 8.2 mg/dL (8.5-10.1); CREATININE 0.8 mg/dL (0.55-1.3); MAGNESIUM 1.6 mg/dL (1.8-2.4); POTASSIUM 3.6 mmol/L (3.5-5.1)
--- NOTE | 2019-06-05 09:48 | PN ---
Progress Note, Physician Chief Complaint: No CP/SOB/Palps TELE: AF, single PVCs no further NSVT with repleted K+ History of Present Illness: ETOH withdrawal - Current Medication List Current Medications: Active Medications Albuterol/Ipratropium (Duoneb -) 1 amp NEB Q4H PRN PRN Reason: SHORTNESS OF BREATH Last Admin: 06/05/19 07:36 Dose: 1 amp Aspirin (Asa -) 81 mg PO DAILY [facility] Carvedilol (Coreg -) 25 mg PO BID [facility] Last Admin: 06/04/19 21:39 Dose: 25 mg Chlordiazepoxide HCl (Librium -) 10 mg PO Q12H PRN PRN Reason: Signs/symptoms of Withdrawal Stop: 06/05/19 23:59 Chlordiazepoxide HCl (Librium -) 10 mg PO Q8H [facility] Stop: 06/05/19 21:01 Last Admin: 06/05/19 05:51 Dose: 10 mg Chlordiazepoxide HCl (Librium -) 10 mg PO ONCE ONE Stop: 06/06/19 05:01 Insulin Aspart (Novolog Vial Sliding Scale -) 1 vial SQ [facility]; Protocol Last Admin: 06/05/19 06:08 Dose: Not Given Lorazepam (Ativan Injection -) 2 mg IVPUSH Q6H PRN PRN Reason: ANXIETY Last Admin: 06/02/19 17:00 Dose: 2 mg Magnesium Oxide (Mag-Ox -) 400 mg PO BID [facility] Stop: 06/06/19 23:59 Last Admin: 06/04/19 21:39 Dose: 400 mg Multivitamins/Minerals/Vitamin C (Tab-A-Vit -) 1 tab PO DAILY [facility] Last Admin: 06/04/19 09:25 Dose: 1 tab Nifedipine (Procardia Xl -) 30 mg PO DAILY [facility] Last Admin: 06/04/19 09:25 Dose: 30 mg Thiamine HCl (Vitamin B1 Injection -) 500 mg IVPB DAILY [facility] Last Admin: 06/04/19 09:27 Dose: 500 mg - Objective Vital Signs: Vital Signs Temperature 99.4 F 06/05/19 09:30 Pulse Rate 100 H 06/05/19 09:30 Respiratory Rate 20 06/05/19 09:30 Blood Pressure 146/72 06/05/19 09:30 O2 Sat by Pulse Oximetry (%) 94 L 06/05/19 09:00 Constitutional: Yes: No Distress, Calm Cardiovascular: Yes: Regular Rate and Rhythm Respiratory: Yes: CTA Bilaterally Gastrointestinal: Yes: Soft Edema: No Neurological: Yes: Alert, Oriented Labs: CBC, BMP 06/03/19 05:50 06/05/19 06:35 INR, PTT INR 1.24 (0.83-1.09) H 06/02/19 13:00 Laboratory Tests 06/03/19 06/05/19 05:50 06:35 WBC 6.1 Hgb 11.4 L Plt Count 173 Sodium 137 Potassium 3.6 Creatinine 0.8 Magnesium 1.6 L Laboratory Tests 06/05/19 06:35 Sodium 137 Potassium 3.6 Creatinine 0.8 Magnesium 1.6 L - ....Imaging EKG: Image Reviewed Assessment/Plan Assessment/Plan tele: sr echo 05/2019: lvef 40-45, global, nl rv, lae, mild tr, lvh mibi 09/2017: no ischemia, lvef 48 a/p: 84 m hx pafib, htn, chf, here with etoh withdrawal: pafib: -in sr, cont bb -not on ac 05/08 etoh abuse and falls with prior sdh -started on low dose ASA htn: -cont current meds chronic syst chf: -mild-mod reduced lvef, similar to 2018 mibi. no ischemia on mibi 2017. -no signs vol overload -cont bb -Will start low dose NUHA-I; may help with hypoK+ as well. Needs to be followed as outpt NSVT: on secondary to marked hypoK+, repleted, resolved -Cont coreg -Check lytes, keep K+ > 4, Mg2+ > 2 -Will not repeat nuclear stress as NSVT triggered by electrolyte issue. etoh: -withdrawal tx per primary team elevated trop: -borderline trop elevation, flat trend, nl ck, similar to prior baseline values , no signs acs. Negative MIBI 2017
--- NOTE | 2019-06-05 10:04 | PN ---
Progress Note (short form) - Note Progress Note: Patient is comfortable has no symptoms no shortness of breath. On telemetry no arrhythmia noted of ventricular tachycardia. No PVCs as well. He had low potassium yesterday today it is much better after the replacement. Vital Signs Period Temp Pulse Resp BP Sys/Romero Pulse Ox Last 24 Hr 98.1 F-99.5 F 95-105 18-20 125-154/65-97 94-95 Head no headache no dizziness Ear nose throat no epistaxis Cardiovascular no chest pain Pulmonary no wheezing no coughing GI no abdominal pain Endocrine no history of diabetes hypothyroidism Neuro no history of stroke Dermatology no history of stroke Locomotor no history of joint pain Rest of review of systems are negative Patient is comfortable HEENT normal Neck supple no JVD Lungs clear no wheezing Abdomen nontender no organomegaly bowel sounds normal Extremities no edema no cyanosis normal pulses Neurologically he is alert awake oriented, nonfocal Skin no rash noted Cardiovascular no gallop noted normal S1-S2 CBC, BMP 06/03/19 05:50 06/05/19 06:35 AA male h/o alcohol use disorder, HTN, afib (not A/C), COPD, asthma, and s/p craniotomy in October 2018 at [facility] for evacuation of SDH, and newly diagnosed diabetes (last admission), presenting from [facility] because of acute alcohol withdrawal. Alcohol withdrawals on alcohol withdrawal protocol thiamine and also Librium he is comfortable this time continue same thing. High troponin level well he has no chest pain , Seen by pattern marking supervisor.Start on aspirin His echocardiogram shows EF of 40 to 45% he had a stress test which was done on September 2017 no ischemia. 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 Discussed with the pattern marking supervisor today if he is stable tomorrow no symptom he can go home on current medication to be followed up in the clinic. Visit type - Emergency Visit Emergency Visit: Yes ED Registration Date: 06/02/19 Care time: The patient presented to the Emergency Department on the above date and was hospitalized for further evaluation of their emergent condition. - New Patient This patient is new to me today: Yes Date on this admission: 06/05/19 - Critical Care Critical Care patient: No - Discharge Referral Referred to [facility] Med P.C.: No
[2019-06-05] MEDS: MAGNESIUM OXIDE 400 MG TABLET (FP) PO SCH ×2 (10:40→21:20)
[2019-06-05] MEDS: CARVEDILOL 25 MG TABLET (FP) PO SCH ×2 (10:40→21:20)
[2019-06-05] MEDS: ASPIRIN 81 MG CHEWABLE TABLETS PO SCH (10:40)
[2019-06-05] MEDS: NIFEdipine E.R. 30 MG TABLET PO SCH (10:44)
[2019-06-05] MEDS: LISINOPRIL 5 MG TABLET (FP) PO SCH (10:44)
[2019-06-05] MEDS: MULTIVITAMINS (DAILY MVI) TABLET (FP) PO SCH (10:44)
[2019-06-05] MEDS: THIAMINE HCL 200 MG/2 ML VIAL IVPB SCH (11:53)
[2019-06-05] MEDS ORDERED: ACETAMINOPHEN 325 MG TABLET (FP) PO ONE (20:19)
[2019-06-06] MEDS ORDERED: chlordiazePOXIDE HCL 10 MG CAPSULE PO ONE (05:00)
[2019-06-06] MEDS: INSULIN SLIDING SCALE (NOVOLOG) 1 VIAL SQ SCH ×4 (06:37→22:22)
[2019-06-06 07:20] LABS: BLOOD UREA NITROGEN 5.1 mg/dL (7-18); CALCIUM 7.8 mg/dL (8.5-10.1); CREATININE 0.9 mg/dL (0.55-1.3); MAGNESIUM 1.6 mg/dL (1.8-2.4); POTASSIUM 3.4 mmol/L (3.5-5.1)
--- NOTE | 2019-06-06 07:21 | PN ---
Physical Exam: SUBJECTIVE: Patient seen and examined no acute events pendig dc to [facility] OBJECTIVE: Vital Signs Period Temp Pulse Resp BP Sys/Romero Pulse Ox Last 24 Hr 98.2 F-100.4 F 85-100 20-20 115-146/64-74 94-95 GENERAL: AAOx3 in NAD HEAD: NC/AT EYES: EOMI, Conjunctiva clear, sclera anicteric ENT: moist mucous membrane NECK: Supple, no JVD LUNGS: CTA B/L, no crackles no wheezing no accessory muscle use. HEART: RRR, NSR, normal s1, s2, murmur no M/R/G ABDOMEN: Soft, ND, NT, +BS 4 Q, no CVA Tenderness LOWER EXTREMITIES: no edema, +2DP pulse, NEUROLOGICAL: No focal deficit. Normal speech. gait not observed. PSYCHIATRIC: Cooperative. Good eye contact. Appropriate mood and affect. SKIN: Warm, dry, Laboratory Results - last 24 hr 06/05/19 06/05/19 06/05/19 06:35 11:53 17:45 Sodium 137 Potassium 3.6 Chloride 106 Carbon Dioxide 28 Anion Gap 4 L BUN 4.3 L Creatinine 0.8 Est GFR (CKD-EPI)AfAm 95.75 Est GFR (CKD-EPI)NonAf 82.61 POC Glucometer 128 120 Random Glucose 117 H Calcium 8.2 L Magnesium 1.6 L 06/05/19 06/06/19 06/06/19 21:21 05:07 06:00 Sodium 140 Potassium 3.4 L Chloride 106 Carbon Dioxide 28 Anion Gap 6 L BUN 5.1 L Creatinine 0.9 Est GFR (CKD-EPI)AfAm 91.22 Est GFR (CKD-EPI)NonAf 78.71 POC Glucometer 115 95 Random Glucose 92 Calcium 7.8 L Magnesium 1.6 L Active Medications Generic Name Dose Route Start Last Admin Trade Name Freq PRN Reason Stop Dose Admin Albuterol/Ipratropium 1 amp 06/02/19 15:32 06/05/19 07:36 Duoneb - NEB 1 amp Q4H PRN Administration SHORTNESS OF BREATH Aspirin 81 mg 06/05/19 10:00 06/05/19 10:40 Asa - PO 81 mg DAILY [facility] Administration Carvedilol 25 mg 06/02/19 22:00 06/05/19 21:20 Coreg - PO 25 mg BID PERE[facility] Administration Insulin Aspart 1 vial 06/02/19 16:30 06/06/19 06:37 Novolog Vial Sliding Scale - SQ Not Given A[facility]S [facility] Protocol Lisinopril 2.5 mg 06/05/19 10:00 06/05/19 10:44 Prinivil PO 2.5 mg DAILY [facility] Administration Magnesium Oxide 400 mg 06/04/19 14:00 06/05/19 21:20 Mag-Ox - PO 06/06/19 23:59 400 mg BID [facility] Administration Multivitamins/Minerals/Vitamin C 1 tab 06/03/19 10:00 06/05/19 10:44 Tab-A-Vit - PO 1 tab DAILY [facility] Administration Nifedipine 30 mg 06/02/19 14:30 06/05/19 10:44 Procardia Xl - PO 30 mg DAILY [facility] Administration Thiamine HCl 100 mg 06/06/19 10:00 Vitamin B1 - PO DAILY [facility] CBC, BMP 06/03/19 05:50 06/06/19 06:00 ASSESSMENT/PLAN: This is an 84 year old man with a history of HTN, atrial fib, chronic systolic heart failure, asthma/COPD, type 2 DM, alcohol abuse, craniotomy for SDH who was sent to the ED from [facility] with acute alcohol withdrawal because he was unsteady and at risk of falling. 1. Alcohol withdrawal, uncomplicated - Completed Librium detox 2. Continuous alcohol dependence - Continue thiamine, multivitamin - Add folic acid 2. Hypokalemia - Replete potassium 3. Hypomagnesemia - Will give magnesium sulfate IV today - Continue MagOx 4. NSVT - Continue telemetry monitoring - Keep Mg>2, K>4 5. Elevated troponin - Echo shows moderate global hypokinesis, LVEF 40-45%, normal RV, mildly dilated LA, moderate concentric LVH, mild TR 6. Chronic systolic heart failure - Stable - Continue Coreg, lisinopril 7. HTN - Continue Coreg, lisinopril, Procardia XL 8. Atrial fibrillation, paroxysmal - Remains in sinus rhythm - Not on anticoagulation secondary to alcohol use, fall risk, history of SDH 9. COPD/asthma - Stable 10. Type 2 DM - Continue Novolog sliding scale 11. History of SDH and craniotomy with evacuation 12. Obesity with BMI 32.3 Visit type - Emergency Visit Emergency Visit: Yes ED Registration Date: 06/02/19 Care time: The patient presented to the Emergency Department on the above date and was hospitalized for further evaluation of their emergent condition. - New Patient This patient is new to me today: Yes Date on this admission: 06/07/19 - Critical Care Critical Care patient: No - Discharge Referral Referred to [facility] Med P.C.: No ATTENDING PHYSICIAN STATEMENT I saw and evaluated the patient. I reviewed the resident's note and discussed the case with the resident. I agree with the resident's findings and plan as documented. SUBJECTIVE: OBJECTIVE: ASSESSMENT AND PLAN:
[2019-06-06] MEDS ORDERED: POTASSIUM CHLORIDE ORAL LIQUID 20 MEQ/15 ML PO ONE (08:15)
[2019-06-06] MEDS ORDERED: MAGNESIUM SULF 50% (8.12 MEQ/2 ML-1 GM VIAL) IVPB ONE (08:15)
--- NOTE | 2019-06-06 08:20 | PN ---
Teaching Attending Note Name of Resident: Tommy Pike ATTENDING PHYSICIAN STATEMENT I saw and evaluated the patient. I reviewed the resident's note and discussed the case with the resident. I agree with the resident's findings and plan as documented. SUBJECTIVE: Patient has no complaints. Had temp 100.4 last night. OBJECTIVE: Vital Signs Period Temp Pulse Resp BP Sys/Romero Pulse Ox Last 24 Hr 98.2 F-100.4 F 85-100 20-20 115-146/64-74 94-95 HEART: S1S2, RRR LUNGS: Clear ABDOMEN: Obese, soft, non-tender, non-distended, normal BS EXTREMITIES: No edema Laboratory Results - last 24 hr 06/05/19 06/05/19 06/05/19 11:53 17:45 21:21 Sodium Potassium Chloride Carbon Dioxide Anion Gap BUN Creatinine Est GFR (CKD-EPI)AfAm Est GFR (CKD-EPI)NonAf POC Glucometer 128 120 115 Random Glucose Calcium Magnesium 06/06/19 06/06/19 05:07 06:00 Sodium 140 Potassium 3.4 L Chloride 106 Carbon Dioxide 28 Anion Gap 6 L BUN 5.1 L Creatinine 0.9 Est GFR (CKD-EPI)AfAm 91.22 Est GFR (CKD-EPI)NonAf 78.71 POC Glucometer 95 Random Glucose 92 Calcium 7.8 L Magnesium 1.6 L Current Medications Generic Name Dose Route Start Last Admin Trade Name Freq PRN Reason Stop Dose Admin Albuterol/Ipratropium 1 amp 06/02/19 15:32 06/05/19 07:36 Duoneb - NEB 1 amp Q4H PRN Administration SHORTNESS OF BREATH Aspirin 81 mg 06/05/19 10:00 06/05/19 10:40 Asa - PO 81 mg DAILY PEREZ Administration Carvedilol 25 mg 06/02/19 22:00 06/05/19 21:20 Coreg - PO 25 mg BID PEREZ Administration Insulin Aspart 1 vial 06/02/19 16:30 06/06/19 06:37 Novolog Vial Sliding Scale - SQ Not Given ACHS PEREZ Protocol Lisinopril 2.5 mg 06/05/19 10:00 06/05/19 10:44 Prinivil PO 2.5 mg DAILY PEREZ Administration Magnesium Oxide 400 mg 06/04/19 14:00 06/05/19 21:20 Mag-Ox - PO 06/06/19 23:59 400 mg BID PEREZ Administration Magnesium Sulfate 2 gm 06/06/19 07:41 Magnesium Sulfate IVPB 06/06/19 07:42 ONCE ONE Multivitamins/Minerals/Vitamin C 1 tab 06/03/19 10:00 06/05/19 10:44 Tab-A-Vit - PO 1 tab DAILY PEREZ Administration Nifedipine 30 mg 06/02/19 14:30 06/05/19 10:44 Procardia Xl - PO 30 mg DAILY PEREZ Administration Potassium Chloride 40 meq 06/06/19 07:41 Potassium Chloride Oral Liquid PO 06/06/19 07:42 ONCE ONE Thiamine HCl 100 mg 06/06/19 10:00 Vitamin B1 - PO DAILY PEREZ ASSESSMENT AND PLAN: This is an 84 year old man with a history of HTN, atrial fib, chronic systolic heart failure, asthma/COPD, type 2 DM, alcohol abuse, craniotomy for SDH who was sent to the ED from [facility] with acute alcohol withdrawal because he was unsteady and at risk of falling. 1. Alcohol withdrawal, uncomplicated - Completed Librium detox 2. Continuous alcohol dependence - Continue thiamine, multivitamin - Add folic acid 2. Hypokalemia - Replete potassium 3. Hypomagnesemia - Will give magnesium sulfate IV today - Continue MagOx 4. NSVT - Continue telemetry monitoring - Keep Mg>2, K>4 5. Elevated troponin - Echo shows moderate global hypokinesis, LVEF 40-45%, normal RV, mildly dilated LA, moderate concentric LVH, mild TR 6. Chronic systolic heart failure - Stable - Continue Coreg, lisinopril 7. HTN - Continue Coreg, lisinopril, Procardia XL 8. Atrial fibrillation, paroxysmal - Remains in sinus rhythm - Not on anticoagulation secondary to alcohol use, fall risk, history of SDH 9. COPD/asthma - Stable 10. Type 2 DM - Continue Novolog sliding scale 11. History of SDH and craniotomy with evacuation 12. Obesity with BMI 32.3
[2019-06-06] MEDS: ALBUTEROL SO4 2.5/IPRATROPIUM 0.5 INH SOL 3 ML VIAL.NEB. NEB PRN ×2 (08:46→20:42)
[2019-06-06] MEDS ORDERED: PT OWN MED DRAWER 7, Y5N ONE (09:36)
[2019-06-06] MEDS: THIAMINE HCL 100 MG TABLET (FP) PO SCH (09:54)
[2019-06-06] MEDS: LISINOPRIL 5 MG TABLET (FP) PO SCH ×2 (09:54→11:53)
[2019-06-06] MEDS: MULTIVITAMINS (DAILY MVI) TABLET (FP) PO SCH (09:54)
[2019-06-06] MEDS: MAGNESIUM OXIDE 400 MG TABLET (FP) PO SCH ×2 (09:54→22:23)
[2019-06-06] MEDS: ASPIRIN 81 MG CHEWABLE TABLETS PO SCH (09:55)
[2019-06-06] MEDS: NIFEdipine E.R. 30 MG TABLET PO SCH (09:55)
[2019-06-06] MEDS: CARVEDILOL 25 MG TABLET (FP) PO SCH ×2 (09:55→22:22)
--- NOTE | 2019-06-06 11:06 | PN ---
Progress Note, Physician Chief Complaint: etoh withdrawal History of Present Illness: denies cp, sob, palp, swelling + etoh abuse - Current Medication List Current Medications: Active Medications Albuterol/Ipratropium (Duoneb -) 1 amp NEB Q4H PRN PRN Reason: SHORTNESS OF BREATH Last Admin: 06/06/19 08:46 Dose: 1 amp Aspirin (Asa -) 81 mg PO DAILY [facility] Last Admin: 06/06/19 09:55 Dose: 81 mg Carvedilol (Coreg -) 25 mg PO BID [facility] Last Admin: 06/06/19 09:55 Dose: 25 mg Insulin Aspart (Novolog Vial Sliding Scale -) 1 vial SQ ACHS [facility]; Protocol Last Admin: 06/06/19 06:37 Dose: Not Given Lisinopril (Prinivil) 2.5 mg PO DAILY [facility] Last Admin: 06/06/19 09:54 Dose: 2.5 mg Magnesium Oxide (Mag-Ox -) 400 mg PO BID [facility] Stop: 06/06/19 23:59 Last Admin: 06/06/19 09:54 Dose: 400 mg Multivitamins/Minerals/Vitamin C (Tab-A-Vit -) 1 tab PO DAILY [facility] Last Admin: 06/06/19 09:54 Dose: 1 tab Nifedipine (Procardia Xl -) 30 mg PO DAILY [facility] Last Admin: 06/06/19 09:55 Dose: 30 mg Thiamine HCl (Vitamin B1 -) 100 mg PO DAILY [facility] Last Admin: 06/06/19 09:54 Dose: 100 mg - Objective Vital Signs: Vital Signs Temperature 99.0 F 06/06/19 10:00 Pulse Rate 93 H 06/06/19 10:00 Respiratory Rate 20 06/06/19 10:00 Blood Pressure 141/74 06/06/19 10:00 O2 Sat by Pulse Oximetry (%) 95 06/05/19 22:00 Constitutional: Yes: No Distress, Calm Eyes: No: Sclera Icterus HENT: No: Nasal Congestion Cardiovascular: Yes: Regular Rate and Rhythm, S1, S2, Other (PMI non diplaced). No: Gallop, Murmur Respiratory: Yes: CTA Bilaterally. No: Accessory Muscle Use, Rales, Wheezes Gastrointestinal: Yes: Normal Bowel Sounds, Soft. No: Tenderness Musculoskeletal: Yes: Other (No kyphosis) Extremities: No: Cold, Cyanosis Edema: No Integumentary: No: Jaundice Neurological: Yes: Alert. No: Seizure Psychiatric: No: Agitated Labs: CBC, BMP 06/03/19 05:50 06/06/19 06:00 INR, PTT INR 1.24 (0.83-1.09) H 06/02/19 13:00 Assessment/Plan tele: NSR, PVCs, mult runs of NSVT 3-5 beats duration. artifact echo 05/2019: lvef 40-45, global, nl rv, lae, mild tr, lvh mibi 09/2017: no ischemia, lvef 48 a/p: 84 m hx pafib, htn, chf, here with etoh withdrawal: pafib: -in sr, cont bb -not on ac / etoh abuse and falls with prior sdh -started on low dose ASA here htn: -bp controlled -cont current meds chronic syst chf: -mild-mod reduced lvef, similar to 2018 mibi. no ischemia on mibi 2018. -no signs vol overload--not diuresing -cont bb -titrate NUHA-I as bp allows (also to help with hypoK tendencies) -outpt f/u with us NSVT: -noted on secondary to marked hypoK+, continues occasionally with lytes suboptimal -cont to replete K to >4, Mg to > 2--note once etoh withdrawal subsides, his K req'ts may decrease -Cont coreg -Will not repeat nuclear stress as NSVT triggered by electrolyte issue (and EF previously noted to be in his present range, with non-ischemic MPI at that time (2018)) etoh: -withdrawal tx per primary team elevated trop: -borderline trop elevation, flat trend, nl ck, similar to prior baseline values , no signs acs. Negative MIBI 2017
[2019-06-07] MEDS: ALBUTEROL SO4 2.5/IPRATROPIUM 0.5 INH SOL 3 ML VIAL.NEB. NEB PRN (03:46)
--- NOTE | 2019-06-07 06:12 | PN ---
Physical Exam: SUBJECTIVE: Patient seen and examined OBJECTIVE: Vital Signs Period Temp Pulse Resp BP Sys/Romero Pulse Ox Last 24 Hr 97 F-99.0 F 82-93 18-20 98-146/43-91 93-95 GENERAL: The patient is awake, alert, and fully oriented, in no acute distress. HEAD: Normal with no signs of trauma. EYES: PERRL, extraocular movements intact, sclera anicteric, conjunctiva clear. No ptosis. ENT: Ears normal, nares patent, oropharynx clear without exudates, moist mucous membranes. NECK: Trachea midline, full range of motion, supple. LUNGS: Breath sounds equal, clear to auscultation bilaterally, no wheezes, no crackles, no accessory muscle use. HEART: Regular rate and rhythm, S1, S2 without murmur, rub or gallop. ABDOMEN: Soft, nontender, nondistended, normoactive bowel sounds, no guarding, no rebound, no hepatosplenomegaly, no masses. EXTREMITIES: 2+ pulses, warm, well-perfused, no edema. NEUROLOGICAL: Cranial nerves II through XII grossly intact. Normal speech, gait not observed. PSYCH: Normal mood, normal affect. SKIN: Warm, dry, normal turgor, no rashes or lesions noted Laboratory Results - last 24 hr 06/06/19 06/06/19 06/06/19 06:00 11:45 16:28 Sodium 140 Potassium 3.4 L Chloride 106 Carbon Dioxide 28 Anion Gap 6 L BUN 5.1 L Creatinine 0.9 Est GFR (CKD-EPI)AfAm 91.22 Est GFR (CKD-EPI)NonAf 78.71 POC Glucometer 117 136 Random Glucose 92 Calcium 7.8 L Magnesium 1.6 L 06/06/19 22:21 Sodium Potassium Chloride Carbon Dioxide Anion Gap BUN Creatinine Est GFR (CKD-EPI)AfAm Est GFR (CKD-EPI)NonAf POC Glucometer 129 Random Glucose Calcium Magnesium Active Medications Generic Name Dose Route Start Last Admin Trade Name Freq PRN Reason Stop Dose Admin Albuterol/Ipratropium 1 amp 06/02/19 15:32 06/07/19 03:46 Duoneb - NEB 1 amp Q4H PRN Administration SHORTNESS OF BREATH Aspirin 81 mg 06/05/19 10:00 06/06/19 09:55 Asa - PO 81 mg DAILY PEREZ Administration Carvedilol 25 mg 06/02/19 22:00 06/06/19 22:22 Coreg - PO 25 mg BID PEREZ Administration Insulin Aspart 1 vial 06/02/19 16:30 06/06/19 22:22 Novolog Vial Sliding Scale - SQ Not Given ACHS PEREZ Protocol Lisinopril 5 mg 06/06/19 11:15 06/06/19 11:53 Prinivil PO 5 mg DAILY PEREZ Administration Multivitamins/Minerals/Vitamin C 1 tab 06/03/19 10:00 06/06/19 09:54 Tab-A-Vit - PO 1 tab DAILY PEREZ Administration Nifedipine 30 mg 06/02/19 14:30 06/06/19 09:55 Procardia Xl - PO 30 mg DAILY PEREZ Administration Thiamine HCl 100 mg 06/06/19 10:00 06/06/19 09:54 Vitamin B1 - PO 100 mg DAILY PEREZ Administration ASSESSMENT/PLAN: ATTENDING PHYSICIAN STATEMENT I saw and evaluated the patient. I reviewed the resident's note and discussed the case with the resident. I agree with the resident's findings and plan as documented. SUBJECTIVE: OBJECTIVE: ASSESSMENT AND PLAN:
[2019-06-07] MEDS: INSULIN SLIDING SCALE (NOVOLOG) 1 VIAL SQ SCH ×2 (06:39→11:39)
[2019-06-07 08:01] LABS: BASO % 1.3 % (0-2.0); EOS % 2.6 % (0-4.5); HEMOGLOBIN 11.1 GM/dL (11.7-16.9); LYMPH % 45.7 % (8-40); MCH 32.2 pg (25.7-33.7); MCHC 32.7 g/dl (32.0-35.9); MEAN CELL VOLUME 98.7 fl (80-96); MEAN PLT VOLUME 9.1 fl (7.5-11.1); MONO % 15.1 % (3.8-10.2); NEUT % 35.3 % (42.8-82.8); PLATELET COUNT 135 K/MM3 (134-434); RBC 3.44 M/mm3 (4.00-5.60); RDW 18.4 % (11.9-15.9); WHITE BLOOD COUNT 3.2 K/mm3 (4.0-10.0)
[2019-06-07 08:32] LABS: ALBUMIN 2.3 g/dl (3.4-5.0); BILIRUBIN,TOTAL 0.3 mg/dL (0.2-1); BLOOD UREA NITROGEN 10.1 mg/dL (7-18); CALCIUM 8.2 mg/dL (8.5-10.1); CREATININE 0.9 mg/dL (0.55-1.3); MAGNESIUM 2.1 mg/dL (1.8-2.4); PHOSPHOROUS 3.4 mg/dL (2.5-4.9); POTASSIUM 3.4 mmol/L (3.5-5.1); TOT PROT 5.7 g/dl (6.4-8.2)
[2019-06-07] MEDS ORDERED: FOLIC ACID 1 MG TABLET (FP) PO SCH (10:00)
[2019-06-07] MEDS: THIAMINE HCL 100 MG TABLET (FP) PO SCH (10:12)
[2019-06-07] MEDS: MULTIVITAMINS (DAILY MVI) TABLET (FP) PO SCH (10:12)
[2019-06-07] MEDS: ASPIRIN 81 MG CHEWABLE TABLETS PO SCH (10:12)
[2019-06-07] MEDS: NIFEdipine E.R. 30 MG TABLET PO SCH (10:12)
[2019-06-07] MEDS: LISINOPRIL 5 MG TABLET (FP) PO SCH (10:13)
[2019-06-07] MEDS: CARVEDILOL 25 MG TABLET (FP) PO SCH (10:13)
[2019-06-07] MEDS ORDERED: ALBUTEROL SO4 HFA INHALER IH PRN (10:26)
[2019-06-07] MEDS ORDERED: POTASSIUM CHLORIDE ORAL LIQUID 20 MEQ/15 ML PO ONE (10:30)
--- NOTE | 2019-06-07 11:00 | DS ---
Physical Exam: SUBJECTIVE: Patient seen and examined dc lisinopril dc albuterol stable to send back to [facility] OBJECTIVE: Vital Signs Period Temp Pulse Resp BP Sys/Romero Pulse Ox Last 24 Hr 97 F-99.0 F 80-88 18-20 98-146/43-91 95-95 PHYSICAL EXAM GENERAL: AAOx3 in NAD HEAD: NC/AT EYES: EOMI, Conjunctiva clear, sclera anicteric ENT: moist mucous membrane NECK: Supple, no JVD LUNGS: CTA B/L, no crackles no wheezing no accessory muscle use. HEART: RRR, NSR, normal s1, s2, murmur no M/R/G ABDOMEN: Soft, ND, NT, +BS 4 Q, no CVA Tenderness LOWER EXTREMITIES: no edema, +2DP pulse, NEUROLOGICAL: No focal deficit. Normal speech. gait not observed. PSYCHIATRIC: Cooperative. Good eye contact. Appropriate mood and affect. SKIN: Warm, dry, LABS Laboratory Results - last 24 hr 06/06/19 06/06/19 06/06/19 11:45 16:28 22:21 WBC RBC Hgb Hct MCV MCH MCHC RDW Plt Count MPV Absolute Neuts (auto) Neutrophils % Lymphocytes % Monocytes % Eosinophils % Basophils % Nucleated RBC % Sodium Potassium Chloride Carbon Dioxide Anion Gap BUN Creatinine Est GFR (CKD-EPI)AfAm Est GFR (CKD-EPI)NonAf POC Glucometer 117 136 129 Random Glucose Calcium Phosphorus Magnesium Total Bilirubin AST ALT Alkaline Phosphatase Total Protein Albumin 06/07/19 06/07/19 06/07/19 06:25 06:25 06:38 WBC 3.2 L RBC 3.44 L Hgb 11.1 L Hct 34.0 L MCV 98.7 H MCH 32.2 MCHC 32.7 RDW 18.4 H Plt Count 135 D MPV 9.1 Absolute Neuts (auto) 1.1 L Neutrophils % 35.3 L D Lymphocytes % 45.7 H D Monocytes % 15.1 H Eosinophils % 2.6 Basophils % 1.3 Nucleated RBC % 0 Sodium 139 Potassium 3.4 L Chloride 106 Carbon Dioxide 26 Anion Gap 6 L BUN 10.1 Creatinine 0.9 Est GFR (CKD-EPI)AfAm 91.22 Est GFR (CKD-EPI)NonAf 78.71 POC Glucometer 108 Random Glucose 105 Calcium 8.2 L Phosphorus 3.4 Magnesium 2.1 Total Bilirubin 0.3 AST 78 H ALT 42 Alkaline Phosphatase 53 Total Protein 5.7 L Albumin 2.3 L CBC, BMP 06/07/19 06:25 06/07/19 06:25 HOSPITAL COURSE: Date of Admission:06/02/19 Date of Discharge: 06/07/19 This is an 84 year old man with a history of HTN, atrial fib, chronic systolic heart failure, asthma/COPD, type 2 DM, alcohol abuse, craniotomy for SDH who was sent to the ED from [facility] with acute alcohol withdrawal because he was unsteady and at risk of falling. Alcohol withdrawal, uncomplicated Completed Librium detox Continuous alcohol dependence, Continue thiamine, multivitamin, Add folic acid. had Hypokalemia was repleted , Hypomagnesemia magnesium sulfate replenished Continue MagOx NSVT monitored in tele ,monitoring,Keep Mg>2, K>4 Elevated troponin Echo shows moderate global hypokinesis, LVEF 40-45%, normal RV , mildly dilated LA, moderate concentric LVH, mild TR Chronic systolic heart failure,Stable,Continue Coreg, lisinopril HTN Continue Coreg, dc lisinopril, cont low lose 30 Procardia XL Atrial fibrillation, paroxysmal, Remains in sinus rhythm, Not on anticoagulation secondary to alcohol use, fall risk, history of SDH COPD/asthma,Stable Type 2 DM,Continue Novolog sliding scale History of SDH and craniotomy with evacuation Obesity with BMI 32.3 Minutes to complete discharge: 50 Discharge Summary Problems reviewed: Yes Reason For Visit: ALCOHOL WITHDRAWAL SYNDROME;AT RISK FOR FALL Current Active Problems Risk for falls (Chronic) Condition: Stable - Instructions Diet, Activity, Other Instructions: you presented to the hospital from [facility] due to sever alcohol withdrwal you has been treated and your symptoms has improved , you will be send back to [facility] for detox from alcohol Medication you started on ASpirin 81 mg daily by geomagnetist please take it as prescribed continue coreg 25 mg twice dailly Procardia dose decreased to 30 mg daily hold Sitagliptin blood sugar medicine for now till you see your primary care physician your current A1c is 5.4 please continue to take Folic acid 1 mg daily and thiamin and multivitamins Please monitor your blood pressure closely and hold Blood pressure medications if it s below 110/60 Please take your time when get out of bed please follow up with your primary care physician within one week to repeat blood work,( cbc , cmp, A1c ) Please follow up with M[facility] Dr Geovanna Brian within one week if you develop fever, chills, chest pain , palpitation, light headedness, weakness dizziness please return to emergency room. Referrals: Snehal Austin MD [Staff Physician] - 1 Week Mauricio Patel [Primary Care Provider] - 1 Week Disposition: TRANSFER ACUTE CARE/OTHER HOSP - Home Medications Comprehensive Discharge Medication List: Ambulatory Orders Aspirin [ASA -] 81 mg PO DAILY tab.chew 06/07/19 Carvedilol [Coreg -] 25 mg PO BID tablet 06/07/19 Folic Acid - 1 mg PO DAILY tablet 06/07/19 Multivitamins [Multivit ([facility] Formulary)] 1 tab PO DAILY tab 06/07/19 Nifedipine ER [Procardia XL -] 30 mg PO DAILY tab.er.24 06/07/19 Thiamine HCl [Vitamin B1 -] 100 mg PO DAILY tablet 06/07/19 This patient is new to me today: No Emergency Visit: No Critical Care patient: No - Discharge Referral Referred to [facility] No ATTENDING PHYSICIAN STATEMENT I saw and evaluated the patient. I reviewed the resident's note and discussed the case with the resident. I agree with the resident's findings and plan as documented. SUBJECTIVE: OBJECTIVE: ASSESSMENT AND PLAN:
[2019-06-07 11:01] VITALS: BP 108/63; PULSE 85; TEMP 98.2
--- NOTE | 2019-06-07 11:32 | PN ---
Progress Note (short form) - Note Progress Note: s: no chest pain, palps, dizziness, dyspnea Current Medications Aspirin (Asa -) 81 mg PO DAILY [facility] Last Admin: 06/07/19 10:12 Dose: 81 mg Carvedilol (Coreg -) 25 mg PO BID [facility] Last Admin: 06/07/19 10:13 Dose: 25 mg Folic Acid (Folic Acid -) 1 mg PO DAILY [facility] Last Admin: 06/07/19 10:13 Dose: 1 mg Insulin Aspart (Novolog Vial Sliding Scale -) 1 vial SQ ACHS [facility]; Protocol Last Admin: 06/07/19 06:39 Dose: Not Given Multivitamins/Minerals/Vitamin C (Tab-A-Vit -) 1 tab PO DAILY [facility] Last Admin: 06/07/19 10:12 Dose: 1 tab Nifedipine (Procardia Xl -) 30 mg PO DAILY [facility] Last Admin: 06/07/19 10:12 Dose: 30 mg Thiamine HCl (Vitamin B1 -) 100 mg PO DAILY [facility] Last Admin: 06/07/19 10:12 Dose: 100 mg Vital Signs Period Temp Pulse Resp BP Sys/Romero Pulse Ox Last 24 Hr 97 F-99.0 F 80-88 18-20 98-146/43-91 95-95 Constitutional: Yes: No Distress, Calm Eyes: No: Sclera Icterus HENT: No: Nasal Congestion Cardiovascular: Yes: Regular Rate and Rhythm, S1, S2, Other (PMI non diplaced). No: Gallop, Murmur Respiratory: Yes: CTA Bilaterally. No: Accessory Muscle Use, Rales, Wheezes Gastrointestinal: Yes: Normal Bowel Sounds, Soft. No: Tenderness Musculoskeletal: Yes: Other (No kyphosis) Extremities: No: Cold, Cyanosis Edema: No Integumentary: No: Jaundice Neurological: Yes: Alert. No: Seizure Psychiatric: No: Agitated Assessment/Plan tele: NSR, PVCs, mult runs of NSVT 3-5 beats duration. artifact echo 05/2019: lvef 40-45, global, nl rv, lae, mild tr, lvh mibi 09/2017: no ischemia, lvef 48 a/p: 84 m hx pafib, htn, chf, here with etoh withdrawal: pafib: -in sr, cont bb -not on ac 2/2 etoh abuse and falls with prior sdh -started on low dose ASA here htn: -low BPs here - lisinopril was held chronic syst chf: -mild-mod reduced lvef, similar to 2018 mibi. no ischemia on mibi 2018. -no signs vol overload--not diuresing -cont bb -titrate NUHA-I as bp allows (also to help with hypoK tendencies) - currently held for low BP, plan to resume as outpatient -outpt f/u with us NSVT: -noted on secondary to marked hypoK+, continues occasionally with lytes suboptimal -cont to replete K to >4, Mg to > 2 -Cont coreg -Will not repeat nuclear stress as NSVT triggered by electrolyte issue (and EF previously noted to be in his present range, with non-ischemic MPI at that time (2018)) etoh: -withdrawal tx per primary team elevated trop: -borderline trop elevation, flat trend, nl ck, similar to prior baseline values , no signs acs. Negative MIBI 2018
--- NOTE | 2019-06-09 13:40 | PN ---
Teaching Attending Note Name of Resident: Tommy Pike ATTENDING PHYSICIAN STATEMENT I saw and evaluated the patient. I reviewed the resident's note and discussed the case with the resident. I agree with the resident's findings and plan as documented. Subjective: Patient seen at bedside, AAox3, comfortable, denies complaints, tolerating PO, VSS stable for DC back to [facility]. Objective: GENERAL: AAox3, speaking in full sentences, NAD HEAD: Normal with no signs of trauma. EYES: conjunctiva clear. No lid lag. ENT: MMM, NC/AT NECK: supple without lymphadenopathy, JVD, or masses. LUNGS: CTA b/l, no rhonchi, wheezing HEART: S1, S2+, RRR ABDOMEN: obese, Soft, nontender, not distended, normoactive bowel sounds, no guarding, LOWER EXTREMITIES: 2+ pulses, warm, well-perfused. No peripheral edema. NEUROLOGICAL: Cranial nerves II-XII intact. 83 AA male h/o alcohol use disorder, HTN, afib (not A/C), COPD, asthma, and s/p craniotomy in October 2018 at [facility] for evacuation of SDH, and newly diagnosed diabetes (last admission), presenting from [facility] because of acute alcohol withdrawal. Etoh withdrawal resolved, off Librium protocol cont. Thiamine/FA/MV daily counseled on Etoh cessation DC back to [facility] Troponemia chronic, denies CP/SOB, dizziness, EKG not showing new ischemic changes no clinical signs of ACS Episodes of NSVT (recurrent had same NSVT episodes in 2018) 2/2 electrolyte disturbances, keep electrolytes Mg >2, and K >4 to avoid NSVT DC Tele Cardiology evaluation HTN cont. BB restart Lisinopril when BP allows, otherwise hold if low BP Afib cont home meds hold AC in view of ICH last year COPD/Asthma duonebs PRN incentive spirometry History of SDH s/p ICH with evacuation Avoid AC Dispo: DC to [facility] Follow up with appropriate appointments as outpatient when DC from [facility].
== END 2019-06-07 13:02 | disposition other institution (70) | DRG 897 ==
LOC: JER 11:59 → JERBED 13:02 → J4W 20:28
DX: F10.239 Alcohol dependence with withdrawal, unspecified (principal); I47.2 Ventricular tachycardia; I50.22 Chronic systolic (congestive) heart failure; E83.42 Hypomagnesemia; I10 Essential (primary) hypertension; E87.6 Hypokalemia; J44.9 Chronic obstructive pulmonary disease, unspecified; E11.9 Type 2 diabetes mellitus without complications; I48.0 Paroxysmal atrial fibrillation; R29.6 Repeated falls; I11.0 Hypertensive heart disease with heart failure; I48.91 Unspecified atrial fibrillation; E66.9 Obesity, unspecified; Z68.32 Body mass index [BMI] 32.0-32.9, adult; Z86.718 Personal history of other venous thrombosis and embolism; Z96.651 Presence of right artificial knee joint
CPT/HCPCS: 36415; 71045-TC-FY; 80048; 80053; 80307; 81003; 82550; 82553; 82962; 83036; 83735; 84100; 84484; 85025; 85610; 93005; 93010; 93306-TC; 94640; 97116-GP; 97162-GP; 99291; J7030

== ENCOUNTER 2019-12-04 12:30 | Inpatient (IN) | payer OTHER ==
[2019-12-04] MEDS ORDERED: SODIUM CHLORIDE 0.9% 500 ML INFUS.BAG IV ONE ×2 (12:37→13:47)
--- NOTE | 2019-12-04 12:55 | PDOC ---
Attending Attestation - Resident Resident Name: JeRodrigo - ED Attending Attestation I have performed the following: I have examined & evaluated the patient, The case was reviewed & discussed with the resident, I agree w/resident's findings & plan, Exceptions are as noted - HPI HPI: 84 yo M history HTN, afib (not on AC), COPD, DM, asthma, [facility] evacuated in 2019, EtOH abuse presents with AMS. As per EMS, patient is altered at baseline, but now is worse than usual. Also as per EMS, patient was hypotensive, hypoxic en route, requiring oxygenation via BVM temporarily. He became more responsive at that point and spit out the oropharyngeal airway. Patient unable to offer any history- he awakens to voice and noxious stimuli, but does not give any verbal responses. - Physicial Exam PE: GENERAL: Somnolent, awakens to voice and noxious stimuli. Soiled with urine and fecal matter. HEAD: No signs of trauma EYES: PERRLA, EOMI, sclera anicteric, conjunctiva clear ENT: Auricles normal inspection, hearing grossly normal, nares patent, oropharynx clear without exudates. Dry mucosa NECK: Normal ROM, supple, no lymphadenopathy, JVD, or masses LUNGS: Breath sounds equal, clear to auscultation bilaterally. No wheezes, and no crackles HEART: Regular rate and rhythm, normal S1 and S2, no murmurs, rubs or gallops ABDOMEN: Soft, nontender, normoactive bowel sounds. No guarding, no rebound. No masses EXTREMITIES: Normal range of motion, 2+ pitting edema to the feet B/L. No clubbing or cyanosis. No cords, erythema, or tenderness NEUROLOGICAL: Cranial nerves II through XII grossly intact. Motor and sensation grossly intact, however, exam limited by poor cooperation SKIN: Warm, dry, normal turgor, no rashes or lesions noted. - Medical Decision Making 12/04/19 14:24 Late entry. Patient arrives altered, suspected sepsis. Poss aspiration, as he had a gurgling cough on arrival in the ED and was hypoxic en route with EMS. IV placed on arrival, sepsis labs sent. CXR showed no focal consolidation (however, concerned for aspiration based on his initial exam). Found to be hypothermic. Hailey hugger placed. Will give broad spectrum abx. Alcohol level sent after a dditional history was obtained from family. Will also obtain CTH based on AMS and his prior history. Will plan for tele admission, as patient is having runs of nonsustained VT on monitor. Discharge - Discharge Information Problems reviewed: Yes Clinical Impression/Diagnosis: ETOH abuse Sepsis Qualifiers: Sepsis type: sepsis due to unspecified organism Sepsis acute organ dysfunction status: unspecified Qualified Code(s): A41.9 - Sepsis, unspecified organism AMS (altered mental status) Qualifiers: Altered mental status type: unspecified Qualified Code(s): R41.82 - Altered mental status, unspecified Condition: Stable - Follow up/Referral - Patient Discharge Instructions - Post Discharge Activity
[2019-12-04 12:59] LABS: BASO % 1.2 % (0-2.0); EOS % 1.7 % (0-4.5); HEMATOCRIT 37.9 % (35.4-49); HEMOGLOBIN 12.5 GM/dL (11.7-16.9); LYMPH % 37.2 % (8-40); MCH 31.2 pg (25.7-33.7); MCHC 32.9 g/dl (32.0-35.9); MEAN CELL VOLUME 94.8 fl (80-96); MEAN PLT VOLUME 9.6 fl (7.5-11.1); MONO % 11.8 % (3.8-10.2); NEUT % 48.1 % (42.8-82.8); PLATELET COUNT 146 K/MM3 (134-434); RBC 3.99 M/mm3 (4.00-5.60); RDW 15.7 % (11.9-15.9); WHITE BLOOD COUNT 4.4 K/mm3 (4.0-10.0)
[2019-12-04 13:10] LABS: INR 1.15 (0.83-1.09); PROTHROMBIN TIME (PATIENT) 13.6 SEC (9.7-13.0)
[2019-12-04 13:12] LABS: ACTIVATED PTT 30.3 SECONDS (25.2-36.5)
--- NOTE | 2019-12-04 13:13 | PDOC ---
History of Present Illness - General Chief Complaint: Altered Mental Status Stated Complaint: UNRESPONSIVE Time Seen by Provider: 12/04/19 12:36 History Source: EMS, Old Records Exam Limitations: Clinical Condition, Unresponsive - History of Present Illness Initial Comments: 12/04/19 13:01 84 yo M PMH HTN, afib not on AC, COPD, DM2, asthma, SAH s/p evacuation 10/22, ETOH abuse BIBEMS form home when family found him "more altered than usual." EMS reports initial hypotension of 80s/50s, IVF hanging, desaturation en route that improved with BMV for several minutes. Patient has not talked with them, but is more alert on arrival with a wet sounding cough. Family did not provide his name initially or medical history, no one came with EMS. 12/04/19 13:19 Son reports that that 11AM patient was not responsive, weak pulse, drooling. Family notes abnormal MSE since last visit here s/p fall, worsening since then. Sleeping all day, not eating, only wants to drink ETOH (last drink this morning). Stress test recently, going to open the arteries due to blockage (Myriam Arboleda, Cardiology). Leg pain. Past History - Travel History Traveled outside of the country in the last 30 days: No Close contact w/someone who was outside of country & ill: No - Medical History Allergies/Adverse Reactions: Allergies Allergy/AdvReac Type Severity Reaction Status Date / Time No Known Allergies Allergy Verified 12/04/19 12:47 Home Medications: Ambulatory Orders Aspirin [ASA -] 81 mg PO DAILY tab.chew 06/07/19 Folic Acid - 1 mg PO DAILY tablet 06/07/19 Thiamine HCl [Vitamin B1 -] 100 mg PO DAILY tablet 06/07/19 Carvedilol [Coreg -] 6.25 mg PO BID 11/17/19 Sacubitril/Valsartan [Entresto 97 mg-103 mg Tablet] 1 tab PO BID 11/17/19 Sitagliptin Phosphate [Januvia] 100 mg PO DAILY 11/17/19 Disulfiram [Antabuse] 12/04/19 Fluconazole [Diflucan] 150 mg PO ONCE 12/04/19 Furosemide 1 PO 12/04/19 Anemia: No Asthma: Yes (ON ALBUTEROL INHALER) Cancer: No Cardiac Disorders: Yes (R Leg DVT) CVA: No COPD: Yes CHF: No DVT: Yes (Right leg) Dementia: No Diabetes: Yes (BORDERLINE) GI Disorders: No Disorders: No HTN: Yes Hypercholesterolemia: No Kidney Stones: No Liver Disease: No Seizures: No Thyroid Disease: No - Surgical History Abdominal Surgery: No Appendectomy: No Cardiac Surgery: No Cholecystectomy: No Lung Surgery: No Neurologic Surgery: Yes (R frontal craniotomy, subdural hematoma) Orthopedic Surgery: Yes (RIGHT KNEE REPLACEMENT IN 2006) - Reproductive History Testicular Surgery: No - Immunization History Td Vaccination: Yes TDAP Vaccination: Yes Immunization Up to Date: Yes - Psycho-Social/Smoking History Smoking History: Smoker current status UNK Have you smoked in the past 12 months: No If you are a former smoker, when did you quit?: 1972 Information on smoking cessation initiated: No - Substance Abuse Hx (Audit-C & DAST Scrn) How often the patient has a drink containing alcohol: Never Score: In Men: 4 or > Positive; In Women: 3 or > Positive: 0 Screen Result (Pos requires Nsg. Audit-10AR): Negative In the last yr the pt used illegal drug/Rx for NonMed reason: No Score: Yes response is considered Positive: 0 Screen Result (Positive result requires Nsg. DAST-10): Negative Review of Systems - Review of Systems Able to Perform ROS?: No (Clinical condition) Is the patient limited Guinean proficient: Yes *Physical Exam - Vital Signs Last Vital Signs Temp Pulse Resp BP Pulse Ox 94 H 16 84/57 L 88 L 12/04/19 12:45 12/04/19 12:45 12/04/19 12:45 12/04/19 12:45 - Physical Exam 12/04/19 13:17 Vitals reviewed, hypotensive, intermittently hypoxic when on room air GEN: Obese, lethargic, opening and closing eyes, moving arms, appears stated age, not speaking. HEENT: NCAT, EOMI, PERRL (oval shaped pupil on left). Sclera anicteric, non- injected. No facial asymmetry. Moist mucous membranes. CV: RRR, S1/S2, no murmurs / rubs / gallops appreciated. LUNG: CTABL, normal work of breathing. No wheezes, rales, rhonchi. +Wet cough. GI: Obese, soft, NTND, no guarding, no rebound. No masses. EXTREMITIES: 2+ distal pulses. No clubbing / cyanosis. Edema on dorsum of left hand. No gross deformity in any extremity. SKIN: Warm, dry, no rashes appreciated, non-jaundiced. PSYCH: Unable to assess NEURO: Moving all extremities equally. Normal strength grossly but patient not cooperative with exam due to clinical condition. ED Treatment Course - LABORATORY CBC & Chemistry Diagram: 12/04/19 12:45 12/04/19 12:45 - ADDITIONAL ORDERS Additional order review: 12/04/19 12:45 RBC 3.99 L MCV 94.8 MCHC 32.9 RDW 15.7 MPV 9.6 Neutrophils % 48.1 D Lymphocytes % 37.2 D Monocytes % 11.8 H Eosinophils % 1.7 D Basophils % 1.2 - RADIOLOGY Radiology Studies Ordered: Category Date Time Status CHEST X-RAY PORTABLE* [RAD] Stat Radiology 12/04/19 12:36 Ordered - Medications Given in the ED: ED Medications Discontinued Medications Generic Name Dose Route Start Last Admin Trade Name Freq PRN Reason Stop Dose Admin Sodium Chloride 1,000 ml 12/04/19 12:37 12/04/19 12:55 Normal Saline - IV 12/04/19 12:38 1,000 ml ONCE ONE Administration Medical Decision Making - Medical Decision Making 12/04/19 13:13 84 yo M PMH HTN, afib not on AC, COPD, asthma, SAH s/p evacuation 10/22, ETOH abuse BIBEMS form home when family found him "more altered than usual." History notable for baseline poor MSE by EMS, poor historian during 11/20/19 visit, but more altered and not responding to questions. Exam notable for hypotension, saturation labile with 100% on room air initially then requiring supplemental O2, patient placed on end tidal CO2, hypothermic to 95F rectally, no LE edema, wet cough (suctioned), not answering questions or interacting but moving all extremities equally. Together concerning for sepsis (pulmonary (aspiration) vs UTI), also history concerning for slow subdural (also does not explain vital abnormalities). Although infectious appears most likely, also considering vascular, endocrine causes of AMS. - Sepsis workup - NCHCT for AMS / fall earlier this month - IVF - Vanc / Zosyn - FOBT, T&S - Hailey bello 12/04/19 13:37 EKbpm, sinus with premature atrial complexes, normal axis, QTc 486, diffuse t-wave flattening compared with 11/17/19 EKG Lactic acid 4.2 Mild K elevation with reported hemolysis Troponin elevated at 0.12 low for patient with chronic troponin leak 12/04/19 15:42 CXR and NCHCT without acute findings Failed to pass meza catheter, patient placed in condom cath for UA collection Blood pressure improved to 100s/70s with IVF On further chart review, patient with history of BPH, urinary retention Concerning for likely retention / urinary source of septic vitals 12/04/19 15:59 Bladder scan with 500ccs Patient more alert, talking, poor historian, normal articultion, says he felt bad this morning Does not know what happened, denies cough, chest pain, urinary symptoms Temp remains 95.5, on Hailey Bello Dispo: Admit 12/04/19 17:16 Lact 3.4, down-trending with IVF Troponin 0.12 > 0.15, EKG unchanged Patient will remain on telemetry Discharge - Discharge Information Problems reviewed: Yes Clinical Impression/Diagnosis: Sepsis Qualifiers: Sepsis type: sepsis due to unspecified organism Sepsis acute organ dysfunction status: unspecified Qualified Code(s): A41.9 - Sepsis, unspecified organism AMS (altered mental status) Qualifiers: Altered mental status type: unspecified Qualified Code(s): R41.82 - Altered men edward status, unspecified Condition: Critical - Admission Yes - Follow up/Referral - Patient Discharge Instructions - Post Discharge Activity
[2019-12-04 13:20] LABS: ALBUMIN 2.7 g/dl (3.4-5.0); BILIRUBIN,TOTAL 0.4 mg/dL (0.2-1); BLOOD UREA NITROGEN 12.1 mg/dL (7-18); CALCIUM 8.2 mg/dL (8.5-10.1); CREATININE 1.2 mg/dL (0.55-1.3); POTASSIUM 5.4 mmol/L (3.5-5.1); TOT PROT 6.2 g/dl (6.4-8.2)
[2019-12-04] MEDS ORDERED: VANCOMYCIN 1 GM in D5W (PRE-DOCKED) 1,000 MG/250 ML IVPB ONE (13:46)
[2019-12-04] MEDS ORDERED: PIPERACILLIN/TAZOB 3.375 GM 3.375 GM in DEXTROSE 5%-WATER - 50 ML IVPB ONE (13:47)
[2019-12-04] MEDS ORDERED: PIPERACILLIN/TAZOB 3.375 GM 3.375 GM/50 ML BAG IVPB ONE (13:56)
[2019-12-04] MEDS ORDERED: VANCOMYCIN 1 GRAM (PRE-DOCKED) 1,000 MG/250 ML BAG IVPB ONE (13:56)
--- NOTE | 2019-12-04 17:41 | HP ---
CHIEF COMPLAINT: AMS, recurrent falls PCP: Deshawn Ling HISTORY OF PRESENT ILLNESS: 84 YO [place] Man with PMH HTN, HFrEF, afib not on AC, COPD, DM2, chronic pancreatitis, asthma, SAH s/p evacuation 10/22, ETOH abuse. who was brought in by his family for increasing confusion, recurrent falls over the last week. Pt was not able to provide hx, so the expert medical writer reached out to the son. He stated that his father had some confusion at baseline due to chronic EtOH use, but they noticed that his mental condition got worse over the last week. He became increasingly confused, not communicating with anyone, weaker, had recurrent falls. Family had to carry him around the house. No fever, chills, chest pain, or change in bowel habits reported. Son stated his father was taking his medications and they limited his EtOH intake to 2 glasses of rum daily. When asked if his father was drinking without anyone noticing, he denied. ER course was notable for: (1) hypotension 80s/50s improved with IV hydration (2)hypothermia, CT negative for acute changes (3)lactic acidosis and EtOH level in 300s Recent Travel: none PAST MEDICAL HISTORY: HTN, HFrEF,afib not on AC, COPD, DM2, chronic pancreatitis, asthma, SAH s/p evacuation 10/22, ETOH abuse PAST SURGICAL HISTORY: SAH s/p evacuation 10/22 Social History: Smoking: na Alcohol: yes, 2 drinks of rum daily Drugs: n/a Allergies No Known Allergies Allergy (Verified 12/04/19 12:47) HOME MEDICATIONS: Home Medications Medication Instructions Recorded Aspirin [ASA -] 81 mg PO DAILY tab.chew 06/07/19 Folic Acid - 1 mg PO DAILY tablet 06/07/19 Thiamine HCl [Vitamin B1 -] 100 mg PO DAILY tablet 06/07/19 Carvedilol [Coreg -] 6.25 mg PO BID 11/17/19 Sacubitril/Valsartan [Entresto 97 1 tab PO BID 11/17/19 mg-103 mg Tablet] Sitagliptin Phosphate [Januvia] 100 mg PO DAILY 11/17/19 Disulfiram [Antabuse] 12/04/19 Fluconazole [Diflucan] 150 mg PO ONCE 12/04/19 Furosemide 1 PO 12/04/19 REVIEW OF SYSTEMS CONSTITUTIONAL: Absent: fever, chills, diaphoresis, generalized weakness, malaise, loss of appetite, weight change HEENT: Absent: rhinorrhea, nasal congestion, throat pain, throat swelling, difficulty swallowing, mouth swelling, ear pain, eye pain, visual changes CARDIOVASCULAR: Absent: chest pain, syncope, palpitations, irregular heart rate, lightheadedness, peripheral edema RESPIRATORY: Absent: cough, shortness of breath, dyspnea with exertion, orthopnea, wheezing, stridor, hemoptysis GASTROINTESTINAL: Absent: abdominal pain, abdominal distension, nausea, vomiting, diarrhea, constipation, melena, hematochezia GENITOURINARY: Absent: dysuria, frequency, urgency, hesitancy, hematuria, flank pain, genital pain MUSCULOSKELETAL: Absent: myalgia, arthralgia, joint swelling, back pain, neck pain SKIN: Absent: rash, itching, pallor HEMATOLOGIC/IMMUNOLOGIC: Absent: easy bleeding, easy bruising, lymphadenopathy, frequent infections ENDOCRINE: Absent: unexplained weight gain, unexplained weight loss, heat intolerance, cold intolerance NEUROLOGIC: unsteady gait, mental status changes PSYCHIATRIC: Absent: anxiety, depression, suicidal or homicidal ideation, hallucinations. PHYSICAL EXAMINATION Vital Signs - 24 hr 12/04/19 12/04/19 12/04/19 12:45 13:30 13:31 Temperature 95.2 F L Pulse Rate 94 H Pulse Rate [ Right Radial] Respiratory 16 Rate Blood Pressure 84/57 L Blood Pressure [Right Arm] O2 Sat by Pulse 88 L 100 Oximetry (%) 12/04/19 14:31 Temperature 94.9 F L Pulse Rate Pulse Rate [ 88 Right Radial] Respiratory 19 Rate Blood Pressure Blood Pressure 108/77 [Right Arm] O2 Sat by Pulse 98 Oximetry (%) GEN: Obese, lethargic, opening and closing eyes, oriented to self only. HEENT: NCAT, EOMI, PERRLA. Sclera anicteric, non-injected. No facial asymmetry. Moist mucous membranes. CV: RRR, S1/S2, no murmurs / rubs / gallops appreciated. LUNG: CTABL, normal work of breathing. No wheezes, rales, rhonchi. GI: Obese, soft, NTND, no guarding, no rebound. No masses. EXTREMITIES: 2+ distal pulses. No clubbing / cyanosis. Edema on dorsum of left hand. No gross deformity in any extremity. SKIN: Warm, dry, no rashes appreciated, non-jaundiced. PSYCH: Unable to assess NEURO: Moving all extremities equally. Normal strength grossly not cooperative with exam Laboratory Results - last 24 hr 12/04/19 12/04/19 12/04/19 12:45 12:45 12:45 WBC 4.4 RBC 3.99 L Hgb 12.5 Hct 37.9 MCV 94.8 MCH 31.2 MCHC 32.9 RDW 15.7 Plt Count 146 D MPV 9.6 Absolute Neuts (auto) 2.1 Neutrophils % 48.1 D Lymphocytes % 37.2 D Monocytes % 11.8 H Eosinophils % 1.7 D Basophils % 1.2 Nucleated RBC % 0 PT with INR 13.60 H INR 1.15 H PTT (Actin FS) 30.3 Sodium Potassium Chloride Carbon Dioxide Anion Gap BUN Creatinine Est GFR (CKD-EPI)AfAm Est GFR (CKD-EPI)NonAf POC Glucometer Random Glucose Lactic Acid Calcium Total Bilirubin AST ALT Alkaline Phosphatase Troponin I 0.12 H Total Protein Albumin Stool Occult Blood Alcohol, Quantitative 12/04/19 12/04/19 12/04/19 12:45 12:45 12:45 WBC RBC Hgb Hct MCV MCH MCHC RDW Plt Count MPV Absolute Neuts (auto) Neutrophils % Lymphocytes % Monocytes % Eosinophils % Basophils % Nucleated RBC % PT with INR INR PTT (Actin FS) Sodium 137 Potassium 5.4 H Chloride 104 Carbon Dioxide 25 Anion Gap 8 BUN 12.1 Creatinine 1.2 Est GFR (CKD-EPI)AfAm 64.42 Est GFR (CKD-EPI)NonAf 55.58 POC Glucometer Random Glucose 139 H Lactic Acid 4.2 H* Calcium 8.2 L Total Bilirubin 0.4 AST 73 H ALT 19 Alkaline Phosphatase 59 Troponin I Total Protein 6.2 L Albumin 2.7 L Stool Occult Blood Alcohol, Quantitative 323.3 H 12/04/19 12/04/19 12/04/19 12:50 13:17 16:30 WBC RBC Hgb Hct MCV MCH MCHC RDW Plt Count MPV Absolute Neuts (auto) Neutrophils % Lymphocytes % Monocytes % Eosinophils % Basophils % Nucleated RBC % PT with INR INR PTT (Actin FS) Sodium Potassium Chloride Carbon Dioxide Anion Gap BUN Creatinine Est GFR (CKD-EPI)AfAm Est GFR (CKD-EPI)NonAf POC Glucometer 128 Random Glucose Lactic Acid 3.4 H* Calcium Total Bilirubin AST ALT Alkaline Phosphatase Troponin I Total Protein Albumin Stool Occult Blood Negative Alcohol, Quantitative 12/04/19 16:30 WBC RBC Hgb Hct MCV MCH MCHC RDW Plt Count MPV Absolute Neuts (auto) Neutrophils % Lymphocytes % Monocytes % Eosinophils % Basophils % Nucleated RBC % PT with INR INR PTT (Actin FS) Sodium Potassium Chloride Carbon Dioxide Anion Gap BUN Creatinine Est GFR (CKD-EPI)AfAm Est GFR (CKD-EPI)NonAf POC Glucometer Random Glucose Lactic Acid Calcium Total Bilirubin AST ALT Alkaline Phosphatase Troponin I 0.15 H Total Protein Albumin Stool Occult Blood Alcohol, Quantitative ASSESSMENT/PLAN: 84 YO [place] Man with PMH HTN, HFrEF, afib not on AC, COPD, DM2, chronic pancreatitis, asthma, SAH s/p evacuation 10/22, ETOH abuse. who was brought in by his family for increasing confusion, recurrent falls over the last week # Acute Delirium Etiology: Alcohol intoxication, Wernicke encephalopathy chronic alcoholism CT head negative for acute pathology CXR negative for acute pathology no fever, no leukocytosis, BP responded to IV hydration, IV Abx given at ED will monitor off ABx Lactic acidosis (likely type B) IV hydration, High dose thiamine to consider switching to D5W in AM monitor for fluid overload Tele monitoring neurology consult PT, SW monitor for withdrawal #elevated troponin tren troponin, EKG pt and family denies CP cardiology consult # Hyperkalemia K 5.4 hold enteresto for today, IV hydration recheck potassium tomorrow EKG reviewed Afib (not on AC) SAH s/p evac chronic pancreatitis HTN HFrEF ([id number]%) COPD DM Asthma DVT prophylaxis Family Medical History Family History: As Documented Visit type - Medication Review Med list reviewed for High Risk Meds patients 65 and older: Yes (reviewed) - Emergency Visit Emergency Visit: Yes ED Registration Date: 12/04/19 Care time: The patient presented to the Emergency Department on the above date and was hospitalized for further evaluation of their emergent condition. - New Patient This patient is new to me today: Yes Date on this admission: 12/07/19 - Critical Care Critical Care patient: No
[2019-12-04] MEDS ORDERED: FOLIC ACID 1 MG TABLET (FP) PO ONE (17:49)
[2019-12-04] MEDS ORDERED: SODIUM CHLORIDE 1,000 ML IV SCH (18:00)
[2019-12-04] MEDS ORDERED: FOLIC ACID 1 MG TABLET (FP) ONE (18:40)
[2019-12-04] MEDS: CYANOCOBALAMIN 1,000 MCG TABLET (FP) PO SCH (19:27)
[2019-12-04 20:45] LABS: EPI CELLS 28 /uL (0-25.1); HYALINE CASTS 1 /uL (0-3.1); PH,URINE 6.5 (5.0-8.0); URINE APPEARANCE CLEAR; URINE BACTERIA 18 /uL (0-1359); URINE BILIRUBIN NEGATIVE (NEGATIVE); URINE COLOR ORANGE; URINE GLUCOSE (UA) NEGATIVE (NEGATIVE); URINE KETONE NEGATIVE (NEGATIVE); URINE LEUK ESTERASE 1+ (NEGATIVE); URINE NITRITE NEGATIVE (NEGATIVE); URINE PROTEIN TRACE (NEGATIVE); URINE RBC 1975 /uL (0-23.9); URINE UROBILINOGEN 0.2 mg/dL (0.2-1.0); URINE WBC 63 /uL (0-25.8)
[2019-12-04] MEDS ORDERED: CARVEDILOL 3.125 MG TABLET (FP) ONE (21:56)
[2019-12-04] MEDS ORDERED: HEPARIN NA (PORCINE) 5,000 UNITS/ML 1ML VIAL ONE (21:56)
[2019-12-04] MEDS ORDERED: THIAMINE HCL 200 MG/2 ML VIAL ONE (21:56)
[2019-12-04] MEDS: CARVEDILOL 6.25 MG TABLET (FP) PO SCH (22:13)
[2019-12-04] MEDS: HEPARIN NA (PORCINE) 5,000 UNITS/ML 1ML VIAL SQ SCH (22:13)
[2019-12-04] MEDS: INSULIN SLIDING SCALE (NOVOLOG) 1 VIAL SQ SCH (22:13)
[2019-12-04] MEDS: THIAMINE HCL 200 MG/2 ML VIAL IVPB SCH (22:14)
[2019-12-05] MEDS ORDERED: THIAMINE HCL 200 MG/2 ML VIAL ONE ×2 (05:23→14:17)
[2019-12-05] MEDS: THIAMINE HCL 200 MG/2 ML VIAL IVPB SCH ×3 (05:30→22:21)
[2019-12-05 07:30] LABS: BASO % 0.8 % (0-2.0); EOS % 2.7 % (0-4.5); HEMATOCRIT 35.2 % (35.4-49); HEMOGLOBIN 11.6 GM/dL (11.7-16.9); LYMPH % 36.2 % (8-40); MCH 30.7 pg (25.7-33.7); MCHC 33.1 g/dl (32.0-35.9); MEAN CELL VOLUME 92.8 fl (80-96); MEAN PLT VOLUME 9.1 fl (7.5-11.1); NEUT % 48.3 % (42.8-82.8); PLATELET COUNT 150 K/MM3 (134-434); RBC 3.79 M/mm3 (4.00-5.60); RDW 15.6 % (11.9-15.9); WHITE BLOOD COUNT 4.8 K/mm3 (4.0-10.0)
[2019-12-05 07:57] LABS: ALBUMIN 2.4 g/dl (3.4-5.0); BILIRUBIN,TOTAL 0.4 mg/dL (0.2-1); BLOOD UREA NITROGEN 12.9 mg/dL (7-18); CALCIUM 8.4 mg/dL (8.5-10.1); CREATININE 1.1 mg/dL (0.55-1.3); MAGNESIUM 1.4 mg/dL (1.8-2.4); PHOSPHOROUS 3.9 mg/dL (2.5-4.9); POTASSIUM 3.8 mmol/L (3.5-5.1); TOT PROT 5.6 g/dl (6.4-8.2)
[2019-12-05] MEDS: INSULIN SLIDING SCALE (NOVOLOG) 1 VIAL SQ SCH ×4 (08:04→22:21)
[2019-12-05] MEDS ORDERED: MAGNESIUM 1GM/D5W 100ML - 100 ML IVPB IVPB ONE (08:16)
[2019-12-05] MEDS ORDERED: MAGNESIUM 2GM/50ML STERILE WATER IVPB IVPB ONE (08:32)
[2019-12-05] MEDS ORDERED: MAGNESIUM SULFATE IN WATER 2 GM/50 ML IVPB IVPB ONE (08:40)
[2019-12-05] MEDS ORDERED: ALBUTEROL SO4 2.5/IPRATROPIUM 0.5 INH SOL 3 ML VIAL.NEB. NEB ONE (08:49)
[2019-12-05] MEDS ORDERED: ASPIRIN 81 MG CHEWABLE TABLETS ONE (09:44)
[2019-12-05] MEDS ORDERED: HEPARIN NA (PORCINE) 5,000 UNITS/ML 1ML VIAL ONE (09:44)
[2019-12-05] MEDS: MULTIVITAMINS (DAILY MVI) TABLET (FP) PO SCH (09:46)
[2019-12-05] MEDS: CYANOCOBALAMIN 1,000 MCG TABLET (FP) PO SCH (09:46)
[2019-12-05] MEDS: CARVEDILOL 6.25 MG TABLET (FP) PO SCH ×3 (09:46→22:21)
[2019-12-05] MEDS: HEPARIN NA (PORCINE) 5,000 UNITS/ML 1ML VIAL SQ SCH ×2 (09:46→22:21)
[2019-12-05] MEDS ORDERED: ASPIRIN 81 MG CHEWABLE TABLETS PO SCH (10:00)
--- NOTE | 2019-12-05 10:28 | CON.NEURO ---
Consult - Past Medical History Cardio/Vascular: Yes: AFIB, CAD - Alcohol/Substance Use Hx Alcohol Use: Yes (2-3 glasses of wine/day) - Smoking History Smoking history: Smoker current status UNK Have you smoked in the past 12 months: No If you are a former smoker, when did you quit?: 1972 Home Medications - Allergies Allergies/Adverse Reactions: Allergies Allergy/AdvReac Type Severity Reaction Status Date / Time No Known Allergies Allergy Verified 12/04/19 12:47 - Home Medications Home Medications: Ambulatory Orders Aspirin [ASA -] 81 mg PO DAILY tab.chew 06/07/19 Folic Acid - 1 mg PO DAILY tablet 06/07/19 Thiamine HCl [Vitamin B1 -] 100 mg PO DAILY tablet 06/07/19 Carvedilol [Coreg -] 6.25 mg PO BID 11/17/19 Sacubitril/Valsartan [Entresto 97 mg-103 mg Tablet] 1 tab PO BID 11/17/19 Sitagliptin Phosphate [Januvia] 100 mg PO DAILY 11/17/19 Disulfiram [Antabuse] 12/04/19 Fluconazole [Diflucan] 150 mg PO ONCE 12/04/19 Furosemide 1 PO 12/04/19 Physical Exam-Neuro Vital Signs: Vital Signs Temperature 98.0 F 12/05/19 00:36 Pulse Rate 98 H 12/05/19 09:04 Respiratory Rate 19 12/05/19 09:04 Blood Pressure 159/105 H 12/05/19 09:04 O2 Sat by Pulse Oximetry (%) 93 L 12/05/19 09:04 Labs: CBC, BMP 12/05/19 07:10 12/05/19 07:10 INR, PTT INR 1.15 (0.83-1.09) H 12/04/19 12:45 Assessment/Plan cc Worsening of mental status HPI 84 year old [facility] man with history of htn, AF( NO AC), COPD, DM, Pancreatitis, asthma, histoyr of SAH in October 22. Patient came with increasing confusion nd fall. He hinton history of alcohol abuse and on day of admission his alcohol level was high. Hi sblood pressure was low, hypotension and lactic acidosis. He does not have any history of flu like symptoms, trauma . His covid test was negative. there was no history of seizure, headahce or focal neurological symptoms. ER course was notable for: (1) hypotension 80s/50s improved with IV hydration (2)hypothermia, CT negative for acute changes (3)lactic acidosis and EtOH level in 300s Recent Travel: none PAST MEDICAL HISTORY: HTN, HFrEF,afib not on AC, COPD, DM2, chronic pancreatitis, asthma, SAH s/p evacuation 10/22, ETOH abuse PAST SURGICAL HISTORY: SAH s/p evacuation 10/22 Social History: Smoking: na Alcohol: yes, 2 drinks of rum daily Drugs: n/a Allergies No Known Allergies Allergy (Verified 12/04/19 12:47) HOME MEDICATIONS: Home Medications Medication Instructions Recorded Aspirin [ASA -] 81 mg PO DAILY tab.chew 06/07/19 Folic Acid - 1 mg PO DAILY tablet 06/07/19 Thiamine HCl [Vitamin B1 -] 100 mg PO DAILY tablet 06/07/19 Carvedilol [Coreg -] 6.25 mg PO BID 11/17/19 Sacubitril/Valsartan [Entresto 97 1 tab PO BID 11/17/19 mg-103 mg Tablet] Sitagliptin Phosphate [Januvia] 100 mg PO DAILY 11/17/19 Disulfiram [Antabuse] 12/04/19 Fluconazole [Diflucan] 150 mg PO ONCE 12/04/19 Furosemide 1 PO 12/04/19 ROS,FH,SH reviewd in chart NEUROLOGICAL EXAMINATION Alert oriented x 2( dont know date), neck is supple vss, afebrile eomi, pupils reactive no face asymmetry moving all ext sensation is normal reflex are generalized diminished ct head is wnl Assessment/Plan Metabolic encephalopathy secondary to alcohol intoxication and have underlying alcohol related cognitive disturbance . There is no evidence of seizure, stroke or meningitis. Plan: suggest to obtain b12,folate tsh - alcohol withdrawal precautions - use librium if withdrawal symptoms - psych consult - no need for mri of brain at this time - supportive care, bananna bag etc Thanking you so much Brodie Pathak MD
--- NOTE | 2019-12-05 11:17 | EKG ---
Test Reason : Blood Pressure : / mmHG Vent. Rate : 091 BPM Atrial Rate : 091 BPM P-R Int : 230 ms QRS Dur : 096 ms QT Int : 392 ms P-R-T Axes : 050 -16 092 degrees QTc Int : 482 ms SINUS RHYTHM WITH 1ST DEGREE A-V BLOCK WITH PREMATURE ATRIAL COMPLEXES MODERATE VOLTAGE CRITERIA FOR LVH, MAY BE NORMAL VARIANT CANNOT RULE OUT SEPTAL INFARCT (CITED ON OR BEFORE 04-DEC-2019) ABNORMAL ECG WHEN COMPARED WITH ECG OF 04-DEC-2019 13:47, PREMATURE ATRIAL COMPLEXES ARE NOW PRESENT Confirmed by SHONDA CAPELLAN MD ([id number]) on 12/05/2019 11:17:04 AM Referred By: Confirmed By:SHONDA CAPELLAN MD
--- NOTE | 2019-12-05 11:19 | EKG ---
Test Reason : Blood Pressure : / mmHG Vent. Rate : 079 BPM Atrial Rate : 079 BPM P-R Int : 226 ms QRS Dur : 098 ms QT Int : 424 ms P-R-T Axes : 053 -10 083 degrees QTc Int : 486 ms SINUS RHYTHM WITH 1ST DEGREE A-V BLOCK WITH PREMATURE ATRIAL COMPLEXES WITH ABERRANT CONDUCTION PREMATURE VENTRICULAR COMPLEXES NONSPECIFIC T WAVE ABNORMALITY PROLONGED QT ABNORMAL ECG WHEN COMPARED WITH ECG OF 17-NOV-2019 19:35, T WAVE VARIATION PREMATURE VENTRICULAR COMPLEXES SEEN Confirmed by SHONDA CAPELLAN MD ([id number]) on 12/05/2019 11:18:39 AM Referred By: Confirmed By:SHONDA CAPELLAN MD
--- NOTE | 2019-12-05 11:39 | PN ---
Teaching Attending Note Name of Resident: Lacy Davila ATTENDING PHYSICIAN STATEMENT I saw and evaluated the patient. I reviewed the resident's note and discussed the case with the resident. I agree with the resident's findings and plan as documented. SUBJECTIVE: Feeling well, unsure why he is here. No complaints. OBJECTIVE: Afebrile, Hemodynamically Stable. Last Vital Signs Temp Pulse Resp BP Pulse Ox 98.0 F 98 H 19 159/105 H 93 L 12/05/19 00:36 12/05/19 09:04 12/05/19 09:04 12/05/19 09:04 12/05/19 09:04 HEENT - Atraumatic, Normocephalic. Heart - S1, S2, RRR Lungs - clear to auscultation Abdomen - Soft, non-tender. Bowel Sounds normal. Extremities - no edema, no calf tenderness. Neuro - AAO x 2. Tone/Power normal all extremities. Laboratory Results - last 24 hr 12/04/19 12/04/19 12/04/19 12:45 12:45 12:45 WBC 4.4 RBC 3.99 L Hgb 12.5 Hct 37.9 MCV 94.8 MCH 31.2 MCHC 32.9 RDW 15.7 Plt Count 146 D MPV 9.6 Absolute Neuts (auto) 2.1 Neutrophils % 48.1 D Lymphocytes % 37.2 D Monocytes % 11.8 H Eosinophils % 1.7 D Basophils % 1.2 Nucleated RBC % 0 PT with INR 13.60 H INR 1.15 H PTT (Actin FS) 30.3 Sodium Potassium Chloride Carbon Dioxide Anion Gap BUN Creatinine Est GFR (CKD-EPI)AfAm Est GFR (CKD-EPI)NonAf POC Glucometer Random Glucose Hemoglobin A1c % Lactic Acid Calcium Phosphorus Magnesium Total Bilirubin AST ALT Alkaline Phosphatase Creatine Kinase Troponin I 0.12 H Total Protein Albumin Triglycerides Cholesterol Total LDL Cholesterol HDL Cholesterol Urine Color Urine Appearance Urine pH Ur Specific [place] Urine Protein Urine Glucose (UA) Urine Ketones Urine Blood Urine Nitrite Urine Bilirubin Urine Urobilinogen Ur Leukocyte Esterase Urine WBC (Auto) Urine RBC (Auto) Urine Casts (Auto) U Epithel Cells (Auto) Urine Bacteria (Auto) Stool Occult Blood Alcohol, Quantitative COVID-19 (MIKE) Blood Type Antibody Screen 12/04/19 12/04/19 12/04/19 12:45 12:45 12:45 WBC RBC Hgb Hct MCV MCH MCHC RDW Plt Count MPV Absolute Neuts (auto) Neutrophils % Lymphocytes % Monocytes % Eosinophils % Basophils % Nucleated RBC % PT with INR INR PTT (Actin FS) Sodium 137 Potassium 5.4 H Chloride 104 Carbon Dioxide 25 Anion Gap 8 BUN 12.1 Creatinine 1.2 Est GFR (CKD-EPI)AfAm 64.42 Est GFR (CKD-EPI)NonAf 55.58 POC Glucometer Random Glucose 139 H Hemoglobin A1c % Lactic Acid 4.2 H* Calcium 8.2 L Phosphorus Magnesium Total Bilirubin 0.4 AST 73 H ALT 19 Alkaline Phosphatase 59 Creatine Kinase Troponin I Total Protein 6.2 L Albumin 2.7 L Triglycerides Cholesterol Total LDL Cholesterol HDL Cholesterol Urine Color Urine Appearance Urine pH Ur Specific [place] Urine Protein Urine Glucose (UA) Urine Ketones Urine Blood Urine Nitrite Urine Bilirubin Urine Urobilinogen Ur Leukocyte Esterase Urine WBC (Auto) Urine RBC (Auto) Urine Casts (Auto) U Epithel Cells (Auto) Urine Bacteria (Auto) Stool Occult Blood Alcohol, Quantitative 323.3 H COVID-19 (MIKE) Blood Type Antibody Screen 12/04/19 12/04/19 12/04/19 12:50 12:50 13:17 WBC RBC Hgb Hct MCV MCH MCHC RDW Plt Count MPV Absolute Neuts (auto) Neutrophils % Lymphocytes % Monocytes % Eosinophils % Basophils % Nucleated RBC % PT with INR INR PTT (Actin FS) Sodium Potassium Chloride Carbon Dioxide Anion Gap BUN Creatinine Est GFR (CKD-EPI)AfAm Est GFR (CKD-EPI)NonAf POC Glucometer 128 Random Glucose Hemoglobin A1c % Lactic Acid Calcium Phosphorus Magnesium Total Bilirubin AST ALT Alkaline Phosphatase Creatine Kinase Troponin I Total Protein Albumin Triglycerides Cholesterol Total LDL Cholesterol HDL Cholesterol Urine Color Urine Appearance Urine pH Ur Specific [place] Urine Protein Urine Glucose (UA) Urine Ketones Urine Blood Urine Nitrite Urine Bilirubin Urine Urobilinogen Ur Leukocyte Esterase Urine WBC (Auto) Urine RBC (Auto) Urine Casts (Auto) U Epithel Cells (Auto) Urine Bacteria (Auto) Stool Occult Blood Negative Alcohol, Quantitative COVID-19 (MIKE) Blood Type O POSITIVE Antibody Screen Negative 12/04/19 12/04/19 12/04/19 14:50 15:11 16:30 WBC RBC Hgb Hct MCV MCH MCHC RDW Plt Count MPV Absolute Neuts (auto) Neutrophils % Lymphocytes % Monocytes % Eosinophils % Basophils % Nucleated RBC % PT with INR INR PTT (Actin FS) Sodium Potassium Chloride Carbon Dioxide Anion Gap BUN Creatinine Est GFR (CKD-EPI)AfAm Est GFR (CKD-EPI)NonAf POC Glucometer Random Glucose Hemoglobin A1c % Lactic Acid 3.4 H* Calcium Phosphorus Magnesium Total Bilirubin AST ALT Alkaline Phosphatase Creatine Kinase Troponin I Total Protein Albumin Triglycerides Cholesterol Total LDL Cholesterol HDL Cholesterol Urine Color [place] Urine Appearance Clear Urine pH 6.5 Ur Specific [place] 1.006 L Urine Protein Trace Urine Glucose (UA) Negative Urine Ketones Negative Urine Blood 3+ H Urine Nitrite Negative Urine Bilirubin Negative Urine Urobilinogen 0.2 Ur Leukocyte Esterase 1+ H Urine WBC (Auto) 63 Urine RBC (Auto) 1975 Urine Casts (Auto) 1 U Epithel Cells (Auto) 28 Urine Bacteria (Auto) 18 Stool Occult Blood Alcohol, Quantitative COVID-19 (MIKE) Not detected Blood Type Antibody Screen 12/04/19 12/04/19 12/05/19 16:30 22:10 07:10 WBC 4.8 RBC 3.79 L Hgb 11.6 L Hct 35.2 L MCV 92.8 MCH 30.7 MCHC 33.1 RDW 15.6 Plt Count 150 MPV 9.1 Absolute Neuts (auto) 2.3 Neutrophils % 48.3 Lymphocytes % 36.2 Monocytes % 12.0 H Eosinophils % 2.7 Basophils % 0.8 Nucleated RBC % 0 PT with INR INR PTT (Actin FS) Sodium Potassium Chloride Carbon Dioxide Anion Gap BUN Creatinine Est GFR (CKD-EPI)AfAm Est GFR (CKD-EPI)NonAf POC Glucometer 92 Random Glucose Hemoglobin A1c % Lactic Acid Calcium Phosphorus Magnesium Total Bilirubin AST ALT Alkaline Phosphatase Creatine Kinase Troponin I 0.15 H Total Protein Albumin Triglycerides Cholesterol Total LDL Cholesterol HDL Cholesterol Urine Color Urine Appearance Urine pH Ur Specific [place] Urine Protein Urine Glucose (UA) Urine Ketones Urine Blood Urine Nitrite Urine Bilirubin Urine Urobilinogen Ur Leukocyte Esterase Urine WBC (Auto) Urine RBC (Auto) Urine Casts (Auto) U Epithel Cells (Auto) Urine Bacteria (Auto) Stool Occult Blood Alcohol, Quantitative COVID-19 (MIKE) Blood Type Antibody Screen 12/05/19 12/05/19 12/05/19 07:10 07:10 11:16 WBC RBC Hgb Hct MCV MCH MCHC RDW Plt Count MPV Absolute Neuts (auto) Neutrophils % Lymphocytes % Monocytes % Eosinophils % Basophils % Nucleated RBC % PT with INR INR PTT (Actin FS) Sodium 141 Potassium 3.8 Chloride 108 H Carbon Dioxide 25 Anion Gap 8 BUN 12.9 Creatinine 1.1 Est GFR (CKD-EPI)AfAm 71.57 Est GFR (CKD-EPI)NonAf 61.75 POC Glucometer 78 Random Glucose 83 Hemoglobin A1c % 4.7 Lactic Acid Calcium 8.4 L Phosphorus 3.9 Magnesium 1.4 L Total Bilirubin 0.4 AST 50 H ALT 16 Alkaline Phosphatase 54 Creatine Kinase 68 Troponin I 0.12 H Total Protein 5.6 L Albumin 2.4 L Triglycerides 36 Cholesterol 118 Total LDL Cholesterol 20 HDL Cholesterol 89 H Urine Color Urine Appearance Urine pH Ur Specific [place] Urine Protein Urine Glucose (UA) Urine Ketones Urine Blood Urine Nitrite Urine Bilirubin Urine Urobilinogen Ur Leukocyte Esterase Urine WBC (Auto) Urine RBC (Auto) Urine Casts (Auto) U Epithel Cells (Auto) Urine Bacteria (Auto) Stool Occult Blood Alcohol, Quantitative COVID-19 (MIKE) Blood Type Antibody Screen Current Medications Generic Name Dose Route Start Last Admin Trade Name Gennaroq PRN Reason Stop Dose Admin Aspirin 81 mg 12/05/19 10:00 12/05/19 09:45 Asa - PO 81 mg DAILY PEREZ Administration Carvedilol 6.25 mg 12/04/19 22:00 12/05/19 09:46 Coreg - PO 6.25 mg BID PEREZ Administration Cyanocobalamin 1,000 mcg 12/04/19 18:00 12/05/19 09:46 Vitamin B12 - PO 1,000 mcg DAILY PEREZ Administration Heparin Sodium (Porcine) 5,000 unit 12/04/19 22:00 12/05/19 09:46 Heparin - SQ 5,000 unit BID PEREZ Administration Sodium Chloride 1,000 mls @ 100 mls/hr 12/04/19 18:00 12/04/19 18:29 Normal Saline - IV 100 mls/hr ASDIR PEREZ Administration Insulin Aspart 1 vial 12/04/19 22:00 12/05/19 11:38 Novolog Vial Sliding Scale - SQ Not Given ACHS [facility] Protocol Multivitamins/Minerals/Vitamin C 1 tab 12/05/19 10:00 12/05/19 09:46 Tab-A-Vit - PO 1 tab DAILY PEREZ Administration Thiamine HCl 200 mg 12/04/19 22:00 12/05/19 05:30 Vitamin B1 Injection - IVPB 12/06/19 21:59 200 mg TID PEREZ Administration Home Medications Medication Instructions Recorded Aspirin [ASA -] 81 mg PO DAILY tab.chew 06/07/19 Folic Acid - 1 mg PO DAILY tablet 06/07/19 Thiamine HCl [Vitamin B1 -] 100 mg PO DAILY tablet 06/07/19 Carvedilol [Coreg -] 6.25 mg PO BID 11/17/19 Sacubitril/Valsartan [Entresto 97 1 tab PO BID 11/17/19 mg-103 mg Tablet] Sitagliptin Phosphate [Januvia] 100 mg PO DAILY 11/17/19 Furosemide 20 mg PO BID 12/04/19 Disulfiram [Antabuse] 250 mg PO DAILY 12/05/19 Ergocalciferol (Vitamin D2) 50,000 unit PO WEEKLY 12/05/19 [Vitamin D2] ASSESSMENT AND PLAN: 84 year old male with history of Dementia, HTN, Chronic Systolic CHF, Atrial fibrillation (not on AC), COPD, DM 2, Chronic Pancreatitis, Asthma, SAH s/p evacuation 10/22, Alcohol Abuse, broought to Ed by family with complaints of increasing confusion, unsteady gait, frequent falls over the past week. 1. Acute Toxic Encephalopathy secondary to Alcohol intoxication vs Wernicke's Encephalopathy Alcohol level 323 CT Head - no acute findings Lactic Acidosis sec to dehydration - no signs of sepsis/infection - no leukocytosis/fevers/CXR - no acute findings. High dose Thiamine, Folic Acid, MVI Cleared by Neurology, will transfer to [facility] for detox B12, TSH , repeat Lactate requested 2. Troponin Egression, flat, likely sec to Cardiomyopathy/Systolic CHF. Denies CP ECG - SR, premature atrial complexes, no acute findings. Peak TnI 0.15 CPK normal. Cardiology consulted. 3. Hyperkalemia - likely sec to dehydration Entresto held. Can resume with repeat K on 12/07/19 4. Atrial fibrillation, not on AC - In SR, continue Coreg. 5. Chronic Systolic CHF, EF 40-45% - Normally on Lasix BID. Will resume once Lactic Acidosis resolves. 6. COPD - no evidence of exacerbation 7. DM 2 - Januvia held. Maintain on Novolog sliding scale. 8. HTN - Uncontrolled. Continue Coreg. Resume Entresto. 9. Hypomagnesemia - repleted. DVT Px - Heparin SQ Once cleared by Cardio, can be transferred to [facility] to initiate/complete Detox.
[2019-12-05 12:47] VITALS: BMI 32.3
[2019-12-05] MEDS ORDERED: FUROSEMIDE 20 MG TABLET (FP) PO SCH (13:00)
[2019-12-05] MEDS ORDERED: FUROSEMIDE 40 MG TABLET (FP) ONE (13:09)
[2019-12-05] MEDS: ASPIRIN 81 MG CHEWABLE TABLETS PO SCH (13:14)
--- NOTE | 2019-12-05 16:33 | PN ---
Physical Exam: SUBJECTIVE: Patient seen and examined at bedside. Reports that he does not know why he is in the hospital. He denies any chest pain, SOB, nausea, vomiting, diarrhea, fever, chills. OBJECTIVE: Vital Signs Period Temp Pulse Resp BP Sys/Romero Pulse Ox Last 24 Hr 97.4 F-98.0 F 91-104 17-20 103-159/59-105 93-99 GENERAL: The patient is awake, alert, and oriented to person and place only, in no acute distress. HEAD: Normal with no signs of trauma. EYES: PERRL, extraocular movements intact, sclera anicteric, conjunctiva clear. Right eye chemosis ENT: Ears normal, nares patent, oropharynx clear without exudates, moist mucous membranes. NECK: Trachea midline, full range of motion, supple. LUNGS: Breath sounds equal, clear to auscultation bilaterally, b/l upper lung field wheezes, no crackles, no accessory muscle use. HEART: Regular rate and rhythm, S1, S2 without murmur, rub or gallop. ABDOMEN: Soft, nontender, nondistended, normoactive bowel sounds, no guarding, no rebound, no hepatosplenomegaly, no masses. EXTREMITIES: 2+ pulses, warm, well-perfused, no edema. NEUROLOGICAL: Moving all extremities equally. Normal strength grossly not cooperative with exam PSYCH: Normal mood, normal affect. SKIN: Warm, dry, normal turgor, no rashes or lesions noted Laboratory Results - last 24 hr 12/04/19 12/04/19 12/04/19 12:50 14:50 15:11 WBC RBC Hgb Hct MCV MCH MCHC RDW Plt Count MPV Absolute Neuts (auto) Neutrophils % Lymphocytes % Monocytes % Eosinophils % Basophils % Nucleated RBC % Sodium Potassium Chloride Carbon Dioxide Anion Gap BUN Creatinine Est GFR (CKD-EPI)AfAm Est GFR (CKD-EPI)NonAf POC Glucometer Random Glucose Hemoglobin A1c % Lactic Acid Calcium Phosphorus Magnesium Total Bilirubin AST ALT Alkaline Phosphatase Creatine Kinase Troponin I Total Protein Albumin Triglycerides Cholesterol Total LDL Cholesterol HDL Cholesterol Vitamin B12 Serum Folate TSH Urine Color [place] Urine Appearance Clear Urine pH 6.5 Ur Specific [place] 1.006 L Urine Protein Trace Urine Glucose (UA) Negative Urine Ketones Negative Urine Blood 3+ H Urine Nitrite Negative Urine Bilirubin Negative Urine Urobilinogen 0.2 Ur Leukocyte Esterase 1+ H Urine WBC (Auto) 63 Urine RBC (Auto) 1975 Urine Casts (Auto) 1 U Epithel Cells (Auto) 28 Urine Bacteria (Auto) 18 COVID-19 (MIKE) Not detected Blood Type O POSITIVE Antibody Screen Negative 12/04/19 12/04/19 12/04/19 16:30 16:30 22:10 WBC RBC Hgb Hct MCV MCH MCHC RDW Plt Count MPV Absolute Neuts (auto) Neutrophils % Lymphocytes % Monocytes % Eosinophils % Basophils % Nucleated RBC % Sodium Potassium Chloride Carbon Dioxide Anion Gap BUN Creatinine Est GFR (CKD-EPI)AfAm Est GFR (CKD-EPI)NonAf POC Glucometer 92 Random Glucose Hemoglobin A1c % Lactic Acid 3.4 H* Calcium Phosphorus Magnesium Total Bilirubin AST ALT Alkaline Phosphatase Creatine Kinase Troponin I 0.15 H Total Protein Albumin Triglycerides Cholesterol Total LDL Cholesterol HDL Cholesterol Vitamin B12 Serum Folate TSH Urine Color Urine Appearance Urine pH Ur Specific [place] Urine Protein Urine Glucose (UA) Urine Ketones Urine Blood Urine Nitrite Urine Bilirubin Urine Urobilinogen Ur Leukocyte Esterase Urine WBC (Auto) Urine RBC (Auto) Urine Casts (Auto) U Epithel Cells (Auto) Urine Bacteria (Auto) COVID-19 (MIKE) Blood Type Antibody Screen 12/05/19 12/05/19 12/05/19 07:10 07:10 07:10 WBC 4.8 RBC 3.79 L Hgb 11.6 L Hct 35.2 L MCV 92.8 MCH 30.7 MCHC 33.1 RDW 15.6 Plt Count 150 MPV 9.1 Absolute Neuts (auto) 2.3 Neutrophils % 48.3 Lymphocytes % 36.2 Monocytes % 12.0 H Eosinophils % 2.7 Basophils % 0.8 Nucleated RBC % 0 Sodium 141 Potassium 3.8 Chloride 108 H Carbon Dioxide 25 Anion Gap 8 BUN 12.9 Creatinine 1.1 Est GFR (CKD-EPI)AfAm 71.57 Est GFR (CKD-EPI)NonAf 61.75 POC Glucometer Random Glucose 83 Hemoglobin A1c % 4.7 Lactic Acid Calcium 8.4 L Phosphorus 3.9 Magnesium 1.4 L Total Bilirubin 0.4 AST 50 H ALT 16 Alkaline Phosphatase 54 Creatine Kinase 68 Troponin I 0.12 H Total Protein 5.6 L Albumin 2.4 L Triglycerides 36 Cholesterol 118 Total LDL Cholesterol 20 HDL Cholesterol 89 H Vitamin B12 Serum Folate TSH Urine Color Urine Appearance Urine pH Ur Specific [place] Urine Protein Urine Glucose (UA) Urine Ketones Urine Blood Urine Nitrite Urine Bilirubin Urine Urobilinogen Ur Leukocyte Esterase Urine WBC (Auto) Urine RBC (Auto) Urine Casts (Auto) U Epithel Cells (Auto) Urine Bacteria (Auto) COVID-19 (MIKE) Blood Type Antibody Screen 12/05/19 12/05/19 12/05/19 11:00 11:16 12:00 WBC RBC Hgb Hct MCV MCH MCHC RDW Plt Count MPV Absolute Neuts (auto) Neutrophils % Lymphocytes % Monocytes % Eosinophils % Basophils % Nucleated RBC % Sodium Potassium Chloride Carbon Dioxide Anion Gap BUN Creatinine Est GFR (CKD-EPI)AfAm Est GFR (CKD-EPI)NonAf POC Glucometer 78 Random Glucose Hemoglobin A1c % Lactic Acid 1.7 Calcium Phosphorus Magnesium Total Bilirubin AST ALT Alkaline Phosphatase Creatine Kinase Troponin I Total Protein Albumin Triglycerides Cholesterol Total LDL Cholesterol HDL Cholesterol Vitamin B12 979 Serum Folate 33 H TSH 0.43 Urine Color Urine Appearance Urine pH Ur Specific [place] Urine Protein Urine Glucose (UA) Urine Ketones Urine Blood Urine Nitrite Urine Bilirubin Urine Urobilinogen Ur Leukocyte Esterase Urine WBC (Auto) Urine RBC (Auto) Urine Casts (Auto) U Epithel Cells (Auto) Urine Bacteria (Auto) COVID-19 (MIKE) Blood Type Antibody Screen Active Medications Generic Name Dose Route Start Last Admin Trade Name Freq PRN Reason Stop Dose Admin Aspirin 81 mg 12/05/19 13:00 12/05/19 13:14 Asa - PO 81 mg DAILY PEREZ Administration Carvedilol 6.25 mg 12/05/19 13:00 12/05/19 13:14 Coreg - PO 6.25 mg BID PEREZ Administration Cyanocobalamin 1,000 mcg 12/04/19 18:00 12/05/19 09:46 Vitamin B12 - PO 1,000 mcg DAILY PEREZ Administration Furosemide 20 mg 12/05/19 13:21 Lasix - PO BIDLASIX PEREZ Heparin Sodium (Porcine) 5,000 unit 12/04/19 22:00 12/05/19 09:46 Heparin - SQ 5,000 unit BID PEREZ Administration Insulin Aspart 1 vial 12/04/19 22:00 12/05/19 11:38 Novolog Vial Sliding Scale - SQ Not Given ACHS [facility] Protocol Multivitamins/Minerals/Vitamin C 1 tab 12/05/19 10:00 12/05/19 09:46 Tab-A-Vit - PO 1 tab DAILY PEREZ Administration Non-Formulary Medication 250 mg 12/06/19 10:00 Disulfiram [Antabuse] PO DAILY PEREZ Thiamine HCl 200 mg 12/04/19 22:00 12/05/19 14:17 Vitamin B1 Injection - IVPB 12/06/19 21:59 200 mg TID PEREZ Administration ASSESSMENT/PLAN: 84 Y M with a PMH of Dementia, HTN, Chronic Systolic CHF, Atrial fibrillation (not on AC), COPD, DM 2, Chronic Pancreatitis, Asthma, SAH s/p evacuation 10/22, Alcohol Abuse, brought to Ed by family with complaints of increasing confusion, unsteady gait, frequent falls over the past 2 weeks. #Acute toxic encephalopathy - Likely 2/2 to Alcohol intoxication vs Wernicke's - EtoH level: 323 - CT head: no acute pathology - elevated lactic acid at 3.4, most likly due to dehydration, Afebrile and Hemodynamically Stable - IVF hydration - treated with Thiamine, Folic Acid, Multi vitamins - Neurology was consulted, cleared for [facility] for Detox #Chronic elevation of Trop - Likely 2/2 to cardiomyopathy/ HFrEF - ECG - NSR, premature atrial complexes, no ST/T wave changes - Cardiology consulted, Pending recs #Hyperkalemia - Possibly 2/2 to Dehydration - Holding Entresto for now, f/u repeat CMP #Hx of Atrial fibrillation - [id number]: 5, not on AC, Multiple falls, SAH - In NSR - continue Coreg. # Hx of HFrEF - EF 40-45% - Home meds Lasix BID, holding for now, Will resume once Lactic Acidosis resolves. #Hx of IDDM - BGM + ISS #Hx of HTN - Uncontrolled - Continue Coreg - Holding Entresto #FEN: - No standing fluid - continue to monitor electrolytes, K and Mg - Sodium controlled diet #DVT ppx - Heparin SQ #DISPO - Continue to monitor in MS, v/s, withdrawal, seizure precautions, pending cardiac eval, pending transferred to [facility] to initiate/complete Detox Visit type - Emergency Visit Emergency Visit: Yes ED Registration Date: 12/04/19 Care time: The patient presented to the Emergency Department on the above date and was hospitalized for further evaluation of their emergent condition. - New Patient This patient is new to me today: No - Critical Care Critical Care patient: No - Discharge Referral Referred to [facility] Med P.C.: No - Medication Review Med list reviewed for High Risk Meds patients 65 and older: Yes ATTENDING PHYSICIAN STATEMENT I saw and evaluated the patient. I reviewed the resident's note and discussed the case with the resident. I agree with the resident's findings and plan as documented. SUBJECTIVE: OBJECTIVE: ASSESSMENT AND PLAN:
--- NOTE | 2019-12-05 17:24 | CON.CARD ---
Consult Consult Specialty:: Cardiology - History of Present Illness History of Present Illness: 84 Y M with a PMH of Dementia, HTN, Chronic Systolic CHF, Atrial fibrillation (not on AC), COPD, DM 2, Chronic Pancreatitis, Asthma, SAH s/p evacuation 10/22, Alcohol Abuse, brought to Ed by family with complaints of increasing confusion, unsteady gait, frequent falls over the past 2 weeks. - History Source History Provided By: Patient, Medical Record - Past Medical History Cardio/Vascular: Yes: AFIB, CAD - Alcohol/Substance Use Hx Alcohol Use: Yes (2-3 glasses of wine/day) - Smoking History Smoking history: Former smoker Have you smoked in the past 12 months: No If you are a former smoker, when did you quit?: 1972 Home Medications - Allergies Allergies/Adverse Reactions: Allergies Allergy/AdvReac Type Severity Reaction Status Date / Time No Known Allergies Allergy Verified 12/04/19 12:47 - Home Medications Home Medications: Ambulatory Orders Aspirin [ASA -] 81 mg PO DAILY tab.chew 06/07/19 Folic Acid - 1 mg PO DAILY tablet 06/07/19 Carvedilol [Coreg -] 6.25 mg PO BID 11/17/19 Sacubitril/Valsartan [Entresto 97 mg-103 mg Tablet] 1 tab PO BID 11/17/19 Sitagliptin Phosphate [Januvia] 100 mg PO DAILY 11/17/19 Furosemide 20 mg PO BID 12/04/19 Disulfiram [Antabuse] 250 mg PO DAILY 12/05/19 Ergocalciferol (Vitamin D2) [Vitamin D2] 50,000 unit PO WEEKLY 12/05/19 Thiamine Mononitrate [Vitamin B-1] 200 mg PO DAILY #30 tablet 12/05/19 Review of Systems - Review of Systems Constitutional: reports: No Symptoms Eyes: reports: No Symptoms HENT: reports: No Symptoms Neck: reports: No Symptoms Cardiovascular: reports: No Symptoms Respiratory: reports: No Symptoms Gastrointestinal: reports: No Symptoms Genitourinary: reports: No Symptoms Breasts: reports: No Symptoms Reported Musculoskeletal: reports: No Symptoms Integumentary: reports: No Symptoms Neurological: reports: Change in LOC Endocrine: reports: No Symptoms Hematology/Lymphatic: reports: No Symptoms Psychiatric: reports: No Symptoms Vital Signs: Vital Signs Temperature 98.0 F 12/05/19 00:36 Pulse Rate 104 H 12/05/19 12:15 Respiratory Rate 17 12/05/19 12:15 Blood Pressure 152/96 12/05/19 12:15 O2 Sat by Pulse Oximetry (%) 97 12/05/19 12:15 Constitutional: Yes: Well Nourished, No Distress, Calm Eyes: Yes: WNL, Conjunctiva Clear, EOM Intact HENT: Yes: WNL, Atraumatic, Normocephalic Neck: Yes: WNL, Supple, Trachea Midline Respiratory: Yes: WNL, Regular, CTA Bilaterally Gastrointestinal: Yes: WNL, Normal Bowel Sounds Renal/: Yes: WNL Cardiovascular: Yes: Pulse Irregular Heart Sounds: Yes: S1, S2 Musculoskeletal: Yes: WNL Extremities: Yes: WNL Integumentary: Yes: WNL Neurological: Yes: Alert Psychiatric: Yes: Alert - Other Data Labs, Other Data: CBC, BMP 12/05/19 07:10 12/05/19 07:10 INR, PTT INR 1.15 (0.83-1.09) H 12/04/19 12:45 Troponin, BNP 12/05/19 07:10 Troponin I 0.12 H Troponin, BNP 12/05/19 07:10 Troponin I 0.12 H Imaging - Results Chest X-ray: Image Reviewed (no i/e) EKG: Image Reviewed (sr 1 avb APCs) Problem List - Problems (1) AMS (altered mental status) Code(s): R41.82 - ALTERED MENTAL STATUS, UNSPECIFIED Qualifiers: Altered mental status type: unspecified Qualified Code(s): R41.82 - Altered mental status, unspecified (2) Sepsis Code(s): A41.9 - SEPSIS, UNSPECIFIED ORGANISM Qualifiers: Sepsis type: sepsis due to unspecified organism Sepsis acute organ dysfunction status: unspecified Qualified Code(s): A41.9 - Sepsis, unspecified organism (3) ACS (acute coronary syndrome) Code(s): I24.9 - ACUTE ISCHEMIC HEART DISEASE, UNSPECIFIED (4) Abnormal head CT Code(s): R93.0 - ABNORMAL FINDINGS ON DX IMAGING OF SKULL AND HEAD, NEC (5) Alcohol intoxication Code(s): F10.929 - ALCOHOL USE, UNSPECIFIED WITH INTOXICATION, UNSPECIFIED Qualifiers: Complication of substance-induced condition: uncomplicated Qualified Code(s): F10.920 - Alcohol use, unspecified with intoxication, uncomplicated (6) Chest pain Code(s): R07.9 - CHEST PAIN, UNSPECIFIED (7) ETOH abuse Code(s): F10.10 - ALCOHOL ABUSE, UNCOMPLICATED (8) Fall Code(s): W19.XXXA - UNSPECIFIED FALL, INITIAL ENCOUNTER (9) Prophylactic measure Code(s): Z29.9 - ENCOUNTER FOR PROPHYLACTIC MEASURES, UNSPECIFIED (10) Urethral injury Code(s): S37.30XA - UNSPECIFIED INJURY OF URETHRA, INITIAL ENCOUNTER Qualifiers: Encounter type: initial encounter Qualified Code(s): S37.30XA - Unspecified injury of urethra, initial encounter (11) Urinary retention due to benign prostatic hyperplasia Code(s): N40.1 - BENIGN PROSTATIC HYPERPLASIA WITH LOWER URINARY TRACT SYMP; R33.8 - OTHER RETENTION OF URINE (12) Asthma Code(s): J45.909 - UNSPECIFIED ASTHMA, UNCOMPLICATED Qualifiers: Asthma severity: mild intermittent Asthma complication type: uncomplicated (13) Atrial fibrillation Code(s): I48.91 - UNSPECIFIED ATRIAL FIBRILLATION (14) COPD (chronic obstructive pulmonary disease) Code(s): J44.9 - CHRONIC OBSTRUCTIVE PULMONARY DISEASE, UNSPECIFIED (15) Elevated troponin level Code(s): R74.8 - ABNORMAL LEVELS OF OTHER SERUM ENZYMES (16) Essential hypertension Code(s): I10 - ESSENTIAL (PRIMARY) HYPERTENSION (17) Frequent falls Code(s): R29.6 - REPEATED FALLS (18) Glaucoma, both eyes Code(s): H40.9 - UNSPECIFIED GLAUCOMA (19) Hypertension Code(s): I10 - ESSENTIAL (PRIMARY) HYPERTENSION (20) Insomnia Code(s): G47.00 - INSOMNIA, UNSPECIFIED (21) Risk for falls Code(s): Z91.81 - HISTORY OF FALLING (22) SDH (subdural hematoma) Code(s): S06.5X9A - TRAUM SUBDR HEM W LOC OF UNSP DURATION, INIT (23) Transaminitis Code(s): R74.0 - NONSPEC ELEV OF LEVELS OF TRANSAMNS & LACTIC ACID DEHYDRGNSE (24) Type 2 diabetes mellitus Code(s): E11.9 - TYPE 2 DIABETES MELLITUS WITHOUT COMPLICATIONS (25) Venous (peripheral) insufficiency Code(s): I87.2 - VENOUS INSUFFICIENCY (CHRONIC) (PERIPHERAL) (26) QUE (acute kidney injury) Code(s): N17.9 - ACUTE KIDNEY FAILURE, UNSPECIFIED (27) Alcohol withdrawal Code(s): F10.239 - ALCOHOL DEPENDENCE WITH WITHDRAWAL, UNSPECIFIED Qualifiers: Complication of substance-induced condition: uncomplicated Qualified Code(s): F10.230 - Alcohol dependence with withdrawal, uncomplicated (28) Urine retention Code(s): R33.9 - RETENTION OF URINE, UNSPECIFIED Assessment/Plan 84 Y M with a PMH of Dementia, HTN, Chronic Systolic CHFEF 40-45, Atrial fibrillation (not on AC), COPD, DM 2, Chronic Pancreatitis, Asthma, SAH s/p evacuation 10/22, Alcohol Abuse, brought to Ed by family with complaints of increasing confusion, unsteady gait, frequent falls over the past 2 weeks. Chronically elevated TNIs Not on AC due to falls and SDH Plan; Hyperkalemia resolved - restart Entresto DVT plx Detox
[2019-12-06] MEDS: INSULIN SLIDING SCALE (NOVOLOG) 1 VIAL SQ SCH ×4 (06:22→21:27)
[2019-12-06] MEDS: THIAMINE HCL 200 MG/2 ML VIAL IVPB SCH (06:22)
[2019-12-06] MEDS: FUROSEMIDE 20 MG TABLET (FP) PO SCH ×2 (06:22→14:38)
[2019-12-06 06:48] LABS: BASO % 0.8 % (0-2.0); EOS % 3.3 % (0-4.5); HEMATOCRIT 34.1 % (35.4-49); HEMOGLOBIN 11.2 GM/dL (11.7-16.9); LYMPH % 38.2 % (8-40); MCH 30.6 pg (25.7-33.7); MCHC 32.8 g/dl (32.0-35.9); MEAN CELL VOLUME 93.3 fl (80-96); MEAN PLT VOLUME 9.4 fl (7.5-11.1); MONO % 13.7 % (3.8-10.2); PLATELET COUNT 142 K/MM3 (134-434); RBC 3.66 M/mm3 (4.00-5.60); RDW 15.7 % (11.9-15.9); WHITE BLOOD COUNT 3.9 K/mm3 (4.0-10.0)
[2019-12-06 07:25] LABS: ALBUMIN 2.3 g/dl (3.4-5.0); BILIRUBIN,TOTAL 0.7 mg/dL (0.2-1); CALCIUM 8.4 mg/dL (8.5-10.1); MAGNESIUM 1.6 mg/dL (1.8-2.4); PHOSPHOROUS 2.8 mg/dL (2.5-4.9); POTASSIUM 3.7 mmol/L (3.5-5.1); TOT PROT 5.6 g/dl (6.4-8.2)
[2019-12-06] MEDS ORDERED: MAGNESIUM 2GM/50ML STERILE WATER IVPB IVPB ONE (10:00)
[2019-12-06] MEDS ORDERED: DISULFIRAM 250 MG PO SCH (10:00)
[2019-12-06] MEDS: ASPIRIN 81 MG CHEWABLE TABLETS PO SCH (11:05)
[2019-12-06] MEDS: CARVEDILOL 6.25 MG TABLET (FP) PO SCH ×2 (11:05→21:27)
[2019-12-06] MEDS: CYANOCOBALAMIN 1,000 MCG TABLET (FP) PO SCH (11:06)
[2019-12-06] MEDS: MULTIVITAMINS (DAILY MVI) TABLET (FP) PO SCH (11:06)
[2019-12-06] MEDS: HEPARIN NA (PORCINE) 5,000 UNITS/ML 1ML VIAL SQ SCH ×2 (11:06→21:27)
[2019-12-06] MEDS: NALTREXONE HCL 50 MG TABLET PO SCH (12:36)
[2019-12-06] MEDS ORDERED: PT OWN MED DRAWER 7, Y5N ONE ×3 (13:08→20:26)
--- NOTE | 2019-12-06 13:40 | PN ---
Teaching Attending Note Name of Resident: Catherine Maher ATTENDING PHYSICIAN STATEMENT I saw and evaluated the patient. I reviewed the resident's note and discussed the case with the resident. I agree with the resident's findings and plan as documented. SUBJECTIVE: OBJECTIVE: Last Vital Signs Temp Pulse Resp BP Pulse Ox 98.1 F 86 20 163/91 95 12/06/19 06:00 12/06/19 06:00 12/06/19 06:00 12/06/19 06:00 12/06/19 06:00 HEENT - Atraumatic, Normocephalic. Heart - S1, S2, RRR Lungs - clear to auscultation Abdomen - Soft, non-tender. Bowel Sounds normal. Extremities - no edema, no calf tenderness. Neuro - AAO x 2. Tone/Power normal all extremities. CBCD WBC 3.9 K/mm3 (4.0-10.0) L 12/06/19 06:14 RBC 3.66 M/mm3 (4.00-5.60) L 12/06/19 06:14 Hgb 11.2 GM/dL (11.7-16.9) L 12/06/19 06:14 Hct 34.1 % (35.4-49) L 12/06/19 06:14 MCV 93.3 fl (80-96) 12/06/19 06:14 MCHC 32.8 g/dl (32.0-35.9) 12/06/19 06:14 RDW 15.7 % (11.9-15.9) 12/06/19 06:14 Plt Count 142 K/MM3 (134-434) 12/06/19 06:14 MPV 9.4 fl (7.5-11.1) 12/06/19 06:14 CMP Sodium 140 mmol/L (136-145) 12/06/19 06:14 Potassium 3.7 mmol/L (3.5-5.1) 12/06/19 06:14 Chloride 107 mmol/L (98-107) 12/06/19 06:14 Carbon Dioxide 26 mmol/L (21-32) 12/06/19 06:14 Anion Gap 8 MMOL/L (8-16) 12/06/19 06:14 BUN 16.0 mg/dL (7-18) 12/06/19 06:14 Creatinine 1.0 mg/dL (0.55-1.3) 12/06/19 06:14 Calcium 8.4 mg/dL (8.5-10.1) L 12/06/19 06:14 Total Bilirubin 0.7 mg/dL (0.2-1) 12/06/19 06:14 AST 45 U/L (15-37) H 12/06/19 06:14 ALT 15 U/L (13-61) 12/06/19 06:14 Alkaline Phosphatase 56 U/L (45-117) 12/06/19 06:14 Total Protein 5.6 g/dl (6.4-8.2) L 12/06/19 06:14 Albumin 2.3 g/dl (3.4-5.0) L 12/06/19 06:14 Active Medications Aspirin (Asa -) 81 mg PO DAILY [facility] Last Admin: 12/06/19 11:05 Dose: 81 mg Documented by: Carvedilol (Coreg -) 6.25 mg PO BID [facility] Last Admin: 12/06/19 11:05 Dose: 6.25 mg Documented by: Cyanocobalamin (Vitamin B12 -) 1,000 mcg PO DAILY [facility] Last Admin: 12/06/19 11:06 Dose: 1,000 mcg Documented by: Furosemide (Lasix -) 20 mg PO BIDLASIX [facility] Last Admin: 12/06/19 06:22 Dose: 20 mg Documented by: Heparin Sodium (Porcine) (Heparin -) 5,000 unit SQ BID [facility] Last Admin: 12/06/19 11:06 Dose: 5,000 unit Documented by: Insulin Aspart (Novolog Vial Sliding Scale -) 1 vial SQ [facility]; Protocol Last Admin: 12/06/19 12:48 Dose: Not Given Documented by: Multivitamins/Minerals/Vitamin C (Tab-A-Vit -) 1 tab PO DAILY [facility] Last Admin: 12/06/19 11:06 Dose: 1 tab Documented by: Naltrexone HCl (Revia -) 50 mg PO DAILY [facility] Last Admin: 12/06/19 12:36 Dose: 50 mg Documented by: Non-Formulary Medication (Disulfiram [Antabuse]) 250 mg PO DAILY [facility] Thiamine HCl (Vitamin B1 Injection -) 200 mg IVPB DAILY [facility] ASSESSMENT AND PLAN: 84 year old male with history of Dementia, HTN, Chronic Systolic CHF, Atrial fibrillation (not on AC), COPD, DM 2, Chronic Pancreatitis, Asthma, SAH s/p evacuation 10/22, Alcohol Abuse, broought to Ed by family with complaints of increasing confusion, unsteady gait, frequent falls over the past week. # Acute Toxic Encephalopathy cause: Alcohol intoxication vs Wernicke's Encephalopathy High dose Thiamine, Folic Acid, MVI Cleared by Neurology trend electryolytes Running episodes of Vtach PT Cardiomyopathy/Systolic CHF. Atrial fibrillation, not on AC COPD DM 2 HTN DVT Prophylaxis
--- NOTE | 2019-12-06 14:29 | PN ---
Progress Note, Physician History of Present Illness: 84 Y M with a PMH of Dementia, HTN, Chronic Systolic CHF, Atrial fibrillation (not on AC), COPD, DM 2, Chronic Pancreatitis, Asthma, SAH s/p evacuation 10/22, Alcohol Abuse, brought to Ed by family with complaints of increasing confusion, unsteady gait, frequent falls over the past 2 weeks. - Current Medication List Current Medications: Active Medications Aspirin (Asa -) 81 mg PO DAILY [facility] Last Admin: 12/06/19 11:05 Dose: 81 mg Documented by: Carvedilol (Coreg -) 6.25 mg PO BID [facility] Last Admin: 12/06/19 11:05 Dose: 6.25 mg Documented by: Cyanocobalamin (Vitamin B12 -) 1,000 mcg PO DAILY [facility] Last Admin: 12/06/19 11:06 Dose: 1,000 mcg Documented by: Furosemide (Lasix -) 20 mg PO BIDLASIX [facility] Last Admin: 12/06/19 06:22 Dose: 20 mg Documented by: Heparin Sodium (Porcine) (Heparin -) 5,000 unit SQ BID [facility] Last Admin: 12/06/19 11:06 Dose: 5,000 unit Documented by: Insulin Aspart (Novolog Vial Sliding Scale -) [address] [facility]; Protocol Last Admin: 12/06/19 12:48 Dose: Not Given Documented by: Multivitamins/Minerals/Vitamin C (Tab-A-Vit -) 1 tab PO DAILY [facility] Last Admin: 12/06/19 11:06 Dose: 1 tab Documented by: Naltrexone HCl (Revia -) 50 mg PO DAILY [facility] Last Admin: 12/06/19 12:36 Dose: 50 mg Documented by: Non-Formulary Medication (Disulfiram [Antabuse]) 250 mg PO DAILY [facility] Thiamine HCl (Vitamin B1 Injection -) 200 mg IVPB DAILY [facility] - Objective Vital Signs: Vital Signs Temperature 98 F 12/06/19 13:57 Pulse Rate 84 12/06/19 13:57 Respiratory Rate 12/06/19 13:57 Blood Pressure 168/99 12/06/19 13:57 O2 Sat by Pulse Oximetry (%) 95 12/06/19 09:00 Eyes: Yes: WNL, Conjunctiva Clear, EOM Intact HENT: Yes: WNL, Atraumatic, Normocephalic Neck: Yes: WNL, Supple, Trachea Midline Cardiovascular: Yes: WNL, Regular Rate and Rhythm Respiratory: Yes: WNL, Regular, CTA Bilaterally Gastrointestinal: Yes: WNL, Normal Bowel Sounds Genitourinary: Yes: WNL Musculoskeletal: Yes: WNL Extremities: Yes: WNL Edema: No Integumentary: Yes: WNL Neurological: Yes: WNL, Alert, Oriented ...Motor Strength: WNL Psychiatric: Yes: WNL Labs: CBC, BMP 12/06/19 06:14 12/06/19 06:14 INR, PTT INR 1.15 (0.83-1.09) H 12/04/19 12:45 Problem List - Problems (1) AMS (altered mental status) Code(s): R41.82 - ALTERED MENTAL STATUS, UNSPECIFIED Qualifiers: Altered mental status type: unspecified Qualified Code(s): R41.82 - Altered mental status, unspecified (2) Sepsis Code(s): A41.9 - SEPSIS, UNSPECIFIED ORGANISM Qualifiers: Sepsis type: sepsis due to unspecified organism Sepsis acute organ dysfunction status: unspecified Qualified Code(s): A41.9 - Sepsis, unspecified organism (3) ACS (acute coronary syndrome) Code(s): I24.9 - ACUTE ISCHEMIC HEART DISEASE, UNSPECIFIED (4) Abnormal head CT Code(s): R93.0 - ABNORMAL FINDINGS ON DX IMAGING OF SKULL AND HEAD, NEC (5) Alcohol intoxication Code(s): F10.929 - ALCOHOL USE, UNSPECIFIED WITH INTOXICATION, UNSPECIFIED Qualifiers: Complication of substance-induced condition: uncomplicated Qualified Code(s): F10.920 - Alcohol use, unspecified with intoxication, uncomplicated (6) Chest pain Code(s): R07.9 - CHEST PAIN, UNSPECIFIED (7) ETOH abuse Code(s): F10.10 - ALCOHOL ABUSE, UNCOMPLICATED (8) Fall Code(s): W19.XXXA - UNSPECIFIED FALL, INITIAL ENCOUNTER (9) Prophylactic measure Code(s): Z29.9 - ENCOUNTER FOR PROPHYLACTIC MEASURES, UNSPECIFIED (10) Urethral injury Code(s): S37.30XA - UNSPECIFIED INJURY OF URETHRA, INITIAL ENCOUNTER Qualifiers: Encounter type: initial encounter Qualified Code(s): S37.30XA - Unspecified injury of urethra, initial encounter (11) Urinary retention due to benign prostatic hyperplasia Code(s): N40.1 - BENIGN PROSTATIC HYPERPLASIA WITH LOWER URINARY TRACT SYMP; R33.8 - OTHER RETENTION OF URINE (12) Asthma Code(s): J45.909 - UNSPECIFIED ASTHMA, UNCOMPLICATED Qualifiers: Asthma severity: mild intermittent Asthma complication type: uncomplicated (13) Atrial fibrillation Code(s): I48.91 - UNSPECIFIED ATRIAL FIBRILLATION (14) COPD (chronic obstructive pulmonary disease) Code(s): J44.9 - CHRONIC OBSTRUCTIVE PULMONARY DISEASE, UNSPECIFIED (15) Elevated troponin level Code(s): R74.8 - ABNORMAL LEVELS OF OTHER SERUM ENZYMES (16) Essential hypertension Code(s): I10 - ESSENTIAL (PRIMARY) HYPERTENSION (17) Frequent falls Code(s): R29.6 - REPEATED FALLS (18) Glaucoma, both eyes Code(s): H40.9 - UNSPECIFIED GLAUCOMA (19) Hypertension Code(s): I10 - ESSENTIAL (PRIMARY) HYPERTENSION (20) Insomnia Code(s): G47.00 - INSOMNIA, UNSPECIFIED (21) Risk for falls Code(s): Z91.81 - HISTORY OF FALLING (22) SDH (subdural hematoma) Code(s): S06.5X9A - TRAUM SUBDR HEM W LOC OF UNSP DURATION, INIT (23) Transaminitis Code(s): R74.0 - NONSPEC ELEV OF LEVELS OF TRANSAMNS & LACTIC ACID DEHYDRGNSE (24) Type 2 diabetes mellitus Code(s): E11.9 - TYPE 2 DIABETES MELLITUS WITHOUT COMPLICATIONS (25) Venous (peripheral) insufficiency Code(s): I87.2 - VENOUS INSUFFICIENCY (CHRONIC) (PERIPHERAL) (26) QUE (acute kidney injury) Code(s): N17.9 - ACUTE KIDNEY FAILURE, UNSPECIFIED (27) Alcohol withdrawal Code(s): F10.239 - ALCOHOL DEPENDENCE WITH WITHDRAWAL, UNSPECIFIED Qualifiers: Complication of substance-induced condition: uncomplicated Qualified Code(s): F10.230 - Alcohol dependence with withdrawal, uncomplicated (28) Urine retention Code(s): R33.9 - RETENTION OF URINE, UNSPECIFIED Assessment/Plan 84 Y M with a PMH of Dementia, HTN, Chronic Systolic CHFEF 40-45, Atrial fibr illation (not on AC), COPD, DM 2, Chronic Pancreatitis, Asthma, SAH s/p evacuation 10/22, Alcohol Abuse, brought to Ed by family with complaints of increasing confusion, unsteady gait, frequent falls over the past 2 weeks. Chronically elevated TNIs Not on AC due to falls and SDH 4 beats NSVT on tele Plan; Hyperkalemia resolved - restart Entresto, if BP tolerates increase Coreg to 12.5 BID. DVT plx Detox
--- NOTE | 2019-12-06 16:12 | PN ---
Progress Note (short form) - Note Progress Note: 84 year old ray man with history of htn, AF( NO AC), COPD, DM, Pancreatitis, asthma, histoyr of SAH in October 22. Patient came with increasing confusion nd fall. He hinton history of alcohol abuse and on day of admission his alcohol level was high. Hi sblood pressure was low, hypotension and lactic acidosis. He does not have any history of flu like symptoms, trauma . His covid test was negative. there was no history of seizure, headahce or focal neurological symptoms. -- chart reviewed, event noted. spoke to nursing. patient is feeling better NEUROLOGICAL EXAMINATION Alert oriented x 2( dont know date), neck is supple vss, afebrile eomi, pupils reactive no face asymmetry moving all ext sensation is normal reflex are generalized diminished ct head is wnl Assessment/Plan Metabolic encephalopathy secondary to alcohol intoxication and have underlying alcohol related cognitive disturbance . There is no evidence of seizure, stroke or meningitis. patient is improving lcinically Plan: b12,folate tsh pending - alcohol withdrawal precautions - use librium if withdrawal symptoms - clinically improved, supportive care, mvi, thiamine and folic acid Thanking you so much Brodie Pathak MD
--- NOTE | 2019-12-06 17:01 | PN ---
Physical Exam: SUBJECTIVE: Patient seen and examined at bedside. He reports that he wants to go home. He denies any chest pain, SOB, nausea, vomiting, diarrhea, fever, chills. OBJECTIVE: Vital Signs Period Temp Pulse Resp BP Sys/Romero Pulse Ox Last 24 Hr 98 F-98.9 F 78-107 20-20 144-177/84-99 95-100 GENERAL: The patient is awake, alert, and oriented to person and place only, in no acute distress. HEAD: Normal with no signs of trauma. EYES: PERRL, extraocular movements intact, sclera anicteric, conjunctiva clear. Right eye chemosis ENT: Ears normal, nares patent, oropharynx clear without exudates, moist mucous membranes. NECK: Trachea midline, full range of motion, supple. LUNGS: Breath sounds equal, clear to auscultation bilaterally, b/l upper lung field wheezes, no crackles, no accessory muscle use. HEART: Regular rate and rhythm, S1, S2 without murmur, rub or gallop. ABDOMEN: Soft, nontender, nondistended, normoactive bowel sounds, no guarding, no rebound, no hepatosplenomegaly, no masses. EXTREMITIES: 2+ pulses, warm, well-perfused, no edema. NEUROLOGICAL: Moving all extremities equally. Normal strength grossly not cooperative with exam PSYCH: Normal mood, normal affect. SKIN: Warm, dry, normal turgor, no rashes or lesions noted Laboratory Results - last 24 hr 12/05/19 12/05/19 12/06/19 17:51 21:56 06:14 WBC 3.9 L RBC 3.66 L Hgb 11.2 L Hct 34.1 L MCV 93.3 MCH 30.6 MCHC 32.8 RDW 15.7 Plt Count 142 MPV 9.4 Absolute Neuts (auto) 1.7 Neutrophils % 44.0 Lymphocytes % 38.2 Monocytes % 13.7 H Eosinophils % 3.3 Basophils % 0.8 Nucleated RBC % 0 Sodium Potassium Chloride Carbon Dioxide Anion Gap BUN Creatinine Est GFR (CKD-EPI)AfAm Est GFR (CKD-EPI)NonAf POC Glucometer 104 126 Random Glucose Calcium Phosphorus Magnesium Total Bilirubin AST ALT Alkaline Phosphatase Total Protein Albumin 12/06/19 12/06/19 12/06/19 06:14 06:21 12:29 WBC RBC Hgb Hct MCV MCH MCHC RDW Plt Count MPV Absolute Neuts (auto) Neutrophils % Lymphocytes % Monocytes % Eosinophils % Basophils % Nucleated RBC % Sodium 140 Potassium 3.7 Chloride 107 Carbon Dioxide 26 Anion Gap 8 BUN 16.0 Creatinine 1.0 Est GFR (CKD-EPI)AfAm 80.31 Est GFR (CKD-EPI)NonAf 69.29 POC Glucometer 98 104 Random Glucose 99 Calcium 8.4 L Phosphorus 2.8 Magnesium 1.6 L Total Bilirubin 0.7 AST 45 H ALT 15 Alkaline Phosphatase 56 Total Protein 5.6 L Albumin 2.3 L Active Medications Generic Name Dose Route Start Last Admin Trade Name Freq PRN Reason Stop Dose Admin Aspirin 81 mg 12/05/19 13:00 12/06/19 11:05 Asa - PO 81 mg DAILY [facility] Administration Carvedilol 6.25 mg 12/05/19 13:00 12/06/19 11:05 Coreg - PO 6.25 mg BID [facility] Administration Cyanocobalamin 1,000 mcg 12/04/19 18:00 12/06/19 11:06 Vitamin B12 - PO 1,000 mcg DAILY [facility] Administration Furosemide 20 mg 12/05/19 13:21 12/06/19 14:38 Lasix - PO 20 mg BIDLASIX [facility] Administration Heparin Sodium (Porcine) 5,000 unit 12/04/19 22:00 12/06/19 11:06 Heparin - SQ 5,000 unit BID [facility] Administration Insulin Aspart 1 vial 12/04/19 22:00 12/06/19 12:48 Novolog Vial Sliding Scale - SQ Not Given ACHS [facility] Protocol Multivitamins/Minerals/Vitamin C 1 tab 12/05/19 10:00 12/06/19 11:06 Tab-A-Vit - PO 1 tab DAILY [facility] Administration Naltrexone HCl 50 mg 12/06/19 10:00 12/06/19 12:36 Revia - PO 50 mg DAILY [facility] Administration Non-Formulary Medication 250 mg 12/06/19 10:00 Disulfiram [Antabuse] PO DAILY [facility] Sacubitril/Valsartan 1 tab 12/06/19 22:00 Entresto 97 Mg-103 Mg Tablet PO BID [facility] Thiamine HCl 200 mg 12/07/19 10:00 Vitamin B1 Injection - IVPB DAILY [facility] ASSESSMENT/PLAN: 84 Y M with a PMH of Dementia, HTN, Chronic Systolic CHF, Atrial fibrillation (not on AC), COPD, DM 2, Chronic Pancreatitis, Asthma, SAH s/p evacuation 10/22, Alcohol Abuse, brought to Ed by family with complaints of increasing confusion, unsteady gait, frequent falls over the past 2 weeks. #Acute toxic encephalopathy - Likely 2/2 to Alcohol intoxication vs Wernicke's - EtoH level: 323 - CT head: no acute pathology - elevated lactic acid at 3.4, most likly due to dehydration, Afebrile and Hemodynamically Stable - IVF hydration - treated with Thiamine, Folic Acid, Multi vitamins - Neurology was consulted, cleared for [facility] for Detox - 4 beats of Vtach on Tele Last night, #Chronic elevation of Trop - Likely 2/2 to cardiomyopathy/ HFrEF - ECG - NSR, premature atrial complexes, no ST/T wave changes - Cardiology Dr. Jefferson on board #Hyperkalemia - Possibly 2/2 to Dehydration - resolved #Hx of Atrial fibrillation - [id number]: 5, not on AC, Multiple falls, SAH - In NSR - continue Coreg. # Hx of HFrEF - EF 40-45% - Home meds Lasix BID, holding for now, Will resume once Lactic Acidosis resolves. #Hx of IDDM - BGM + ISS #Hx of HTN - Uncontrolled - Continue Coreg and Entresto #FEN: - No standing fluid - continue to monitor electrolytes, K and Mg - Sodium controlled diet #DVT ppx - Heparin SQ #DISPO - Continue to monitor in MS, v/s, withdrawal, seizure precautions, pending transferred to [facility] to initiate/complete Detox Visit type - Emergency Visit Emergency Visit: Yes ED Registration Date: 12/04/19 Care time: The patient presented to the Emergency Department on the above date and was hospitalized for further evaluation of their emergent condition. - New Patient This patient is new to me today: No - Critical Care Critical Care patient: No - Discharge Referral Referred to [facility] Med P.C.: No - Medication Review Med list reviewed for High Risk Meds patients 65 and older: Yes ATTENDING PHYSICIAN STATEMENT I saw and evaluated the patient. I reviewed the resident's note and discussed the case with the resident. I agree with the resident's findings and plan as documented. SUBJECTIVE: OBJECTIVE: ASSESSMENT AND PLAN:
[2019-12-06] MEDS: SACUBITRIL/VALSARTAN 97 MG-103 MG TABLET PO SCH (21:27)
[2019-12-07] MEDS: INSULIN SLIDING SCALE (NOVOLOG) 1 VIAL SQ SCH ×2 (06:38→11:25)
[2019-12-07] MEDS: FUROSEMIDE 20 MG TABLET (FP) PO SCH ×2 (06:38→13:37)
[2019-12-07 06:55] LABS: BASO % 0.8 % (0-2.0); HEMATOCRIT 35.4 % (35.4-49); HEMOGLOBIN 11.6 GM/dL (11.7-16.9); LYMPH % 41.2 % (8-40); MCH 30.5 pg (25.7-33.7); MCHC 32.7 g/dl (32.0-35.9); MEAN CELL VOLUME 93.2 fl (80-96); MEAN PLT VOLUME 9.9 fl (7.5-11.1); MONO % 11.2 % (3.8-10.2); NEUT % 42.8 % (42.8-82.8); PLATELET COUNT 156 K/MM3 (134-434); WHITE BLOOD COUNT 4.1 K/mm3 (4.0-10.0)
[2019-12-07 07:15] LABS: ALBUMIN 2.4 g/dl (3.4-5.0); BILIRUBIN,TOTAL 0.5 mg/dL (0.2-1); CALCIUM 8.7 mg/dL (8.5-10.1); CREATININE 0.8 mg/dL (0.55-1.3); MAGNESIUM 1.5 mg/dL (1.8-2.4); PHOSPHOROUS 2.6 mg/dL (2.5-4.9); POTASSIUM 3.7 mmol/L (3.5-5.1); TOT PROT 6.1 g/dl (6.4-8.2)
[2019-12-07] MEDS ORDERED: ALBUTEROL SO4 2.5/IPRATROPIUM 0.5 INH SOL 3 ML VIAL.NEB. NEB SCH (08:00)
[2019-12-07] MEDS ORDERED: MAGNESIUM SULF 50% (8.12 MEQ/2 ML-1 GM VIAL) IVPB ONE (08:01)
[2019-12-07] MEDS ORDERED: MAGNESIUM SULFATE IN WATER 2 GM/50 ML IVPB IVPB ONE (08:45)
[2019-12-07] MEDS ORDERED: PT OWN MED DRAWER 7, Y5N ONE (08:51)
[2019-12-07] MEDS: NALTREXONE HCL 50 MG TABLET PO SCH (09:23)
[2019-12-07] MEDS: CARVEDILOL 6.25 MG TABLET (FP) PO SCH (09:23)
[2019-12-07] MEDS: ASPIRIN 81 MG CHEWABLE TABLETS PO SCH (09:23)
[2019-12-07] MEDS: SACUBITRIL/VALSARTAN 97 MG-103 MG TABLET PO SCH (09:23)
[2019-12-07] MEDS: HEPARIN NA (PORCINE) 5,000 UNITS/ML 1ML VIAL SQ SCH (09:23)
[2019-12-07] MEDS: MULTIVITAMINS (DAILY MVI) TABLET (FP) PO SCH (09:23)
[2019-12-07] MEDS: CYANOCOBALAMIN 1,000 MCG TABLET (FP) PO SCH (09:24)
[2019-12-07] MEDS ORDERED: THIAMINE HCL 200 MG/2 ML VIAL IVPB SCH (10:00)
--- NOTE | 2019-12-07 11:35 | PN ---
Progress Note, Physician History of Present Illness: 84 Y M with a PMH of Dementia, HTN, Chronic Systolic CHF, Atrial fibrillation (not on AC), COPD, DM 2, Chronic Pancreatitis, Asthma, SAH s/p evacuation 10/22, Alcohol Abuse, brought to Ed by family with complaints of increasing confusion, unsteady gait, frequent falls over the past 2 weeks. - Current Medication List Current Medications: Active Medications Albuterol/Ipratropium (Duoneb -) 1 amp NEB RTID [facility] Last Admin: 12/07/19 09:10 Dose: 1 amp Documented by: Aspirin (Asa -) 81 mg PO DAILY [facility] Last Admin: 12/07/19 09:23 Dose: 81 mg Documented by: Carvedilol (Coreg -) 12.5 mg PO BID [facility] Cyanocobalamin (Vitamin B12 -) 1,000 mcg PO DAILY [facility] Last Admin: 12/07/19 09:24 Dose: 1,000 mcg Documented by: Furosemide (Lasix -) 20 mg PO BIDLASIX [facility] Last Admin: 12/07/19 06:38 Dose: 20 mg Documented by: Heparin Sodium (Porcine) (Heparin -) 5,000 unit SQ BID [facility] Last Admin: 12/07/19 09:23 Dose: 5,000 unit Documented by: Insulin Aspart (Novolog Vial Sliding Scale -) 1 vial SQ [facility]; Protocol Last Admin: 12/07/19 11:25 Dose: Not Given Documented by: Multivitamins/Minerals/Vitamin C (Tab-A-Vit -) 1 tab PO DAILY [facility] Last Admin: 12/07/19 09:23 Dose: 1 tab Documented by: Naltrexone HCl (Revia -) 50 mg PO DAILY [facility] Last Admin: 12/07/19 09:23 Dose: 50 mg Documented by: Non-Formulary Medication (Disulfiram [Antabuse]) 250 mg PO DAILY [facility] Sacubitril/Valsartan (Entresto 97 Mg-103 Mg Tablet) 1 tab PO BID [facility] Last Admin: 12/07/19 09:23 Dose: 1 tab Documented by: Thiamine HCl (Vitamin B1 Injection -) 200 mg IVPB DAILY [facility] Last Admin: 12/07/19 11:08 Dose: 200 mg Documented by: - Objective Vital Signs: Vital Signs Temperature 97.6 F 12/07/19 06:00 Pulse Rate 78 12/07/19 06:00 Respiratory Rate 20 20 06:00 Blood Pressure 158/94 12/07/19 06:00 O2 Sat by Pulse Oximetry (%) 97 12/07/19 06:00 Eyes: Yes: WNL, Conjunctiva Clear, EOM Intact HENT: Yes: WNL, Atraumatic, Normocephalic Neck: Yes: WNL, Supple, Trachea Midline Cardiovascular: Yes: WNL, Regular Rate and Rhythm Respiratory: Yes: WNL, Regular, CTA Bilaterally Gastrointestinal: Yes: WNL, Normal Bowel Sounds Genitourinary: Yes: WNL Musculoskeletal: Yes: WNL Extremities: Yes: WNL Edema: No Integumentary: Yes: WNL Labs: CBC, BMP 12/07/19 05:51 12/07/19 05:51 INR, PTT INR 1.15 (0.83-1.09) H 12/04/19 12:45 Problem List - Problems (1) AMS (altered mental status) Code(s): R41.82 - ALTERED MENTAL STATUS, UNSPECIFIED Qualifiers: Altered mental status type: unspecified Qualified Code(s): R41.82 - Altered mental status, unspecified (2) Sepsis Code(s): A41.9 - SEPSIS, UNSPECIFIED ORGANISM Qualifiers: Sepsis type: sepsis due to unspecified organism Sepsis acute organ dysfunction status: unspecified Qualified Code(s): A41.9 - Sepsis, unspecified organism (3) ACS (acute coronary syndrome) Code(s): I24.9 - ACUTE ISCHEMIC HEART DISEASE, UNSPECIFIED (4) Abnormal head CT Code(s): R93.0 - ABNORMAL FINDINGS ON DX IMAGING OF SKULL AND HEAD, NEC (5) Alcohol intoxication Code(s): F10.929 - ALCOHOL USE, UNSPECIFIED WITH INTOXICATION, UNSPECIFIED Qualifiers: Complication of substance-induced condition: uncomplicated Qualified Code(s): F10.920 - Alcohol use, unspecified with intoxication, uncomplicated (6) Chest pain Code(s): R07.9 - CHEST PAIN, UNSPECIFIED (7) ETOH abuse Code(s): F10.10 - ALCOHOL ABUSE, UNCOMPLICATED (8) Fall Code(s): W19.XXXA - UNSPECIFIED FALL, INITIAL ENCOUNTER (9) Prophylactic measure Code(s): Z29.9 - ENCOUNTER FOR PROPHYLACTIC MEASURES, UNSPECIFIED (10) Urethral injury Code(s): S37.30XA - UNSPECIFIED INJURY OF URETHRA, INITIAL ENCOUNTER Qualifiers: Encounter type: initial encounter Qualified Code(s): S37.30XA - Unspecified injury of urethra, initial encounter (11) Urinary retention due to benign prostatic hyperplasia Code(s): N40.1 - BENIGN PROSTATIC HYPERPLASIA WITH LOWER URINARY TRACT SYMP; R33.8 - OTHER RETENTION OF URINE (12) Asthma Code(s): J45.909 - UNSPECIFIED ASTHMA, UNCOMPLICATED Qualifiers: Asthma severity: mild intermittent Asthma complication type: uncomplicated (13) Atrial fibrillation Code(s): I48.91 - UNSPECIFIED ATRIAL FIBRILLATION (14) COPD (chronic obstructive pulmonary disease) Code(s): J44.9 - CHRONIC OBSTRUCTIVE PULMONARY DISEASE, UNSPECIFIED (15) Elevated troponin level Code(s): R74.8 - ABNORMAL LEVELS OF OTHER SERUM ENZYMES (16) Essential hypertension Code(s): I10 - ESSENTIAL (PRIMARY) HYPERTENSION (17) Frequent falls Code(s): R29.6 - REPEATED FALLS (18) Glaucoma, both eyes Code(s): H40.9 - UNSPECIFIED GLAUCOMA (19) Hypertension Code(s): I10 - ESSENTIAL (PRIMARY) HYPERTENSION (20) Insomnia Code(s): G47.00 - INSOMNIA, UNSPECIFIED (21) Risk for falls Code(s): Z91.81 - HISTORY OF FALLING (22) SDH (subdural hematoma) Code(s): S06.5X9A - TRAUM SUBDR HEM W LOC OF UNSP DURATION, INIT (23) Transaminitis Code(s): R74.0 - NONSPEC ELEV OF LEVELS OF TRANSAMNS & LACTIC ACID DEHYDRGNSE (24) Type 2 diabetes mellitus Code(s): E11.9 - TYPE 2 DIABETES MELLITUS WITHOUT COMPLICATIONS (25) Venous (peripheral) insufficiency Code(s): I87.2 - VENOUS INSUFFICIENCY (CHRONIC) (PERIPHERAL) (26) QUE (acute kidney injury) Code(s): N17.9 - ACUTE KIDNEY FAILURE, UNSPECIFIED (27) Alcohol withdrawal Code(s): F10.239 - ALCOHOL DEPENDENCE WITH WITHDRAWAL, UNSPECIFIED Qualifiers: Complication of substance-induced condition: uncomplicated Qualified Code(s): F10.230 - Alcohol dependence with withdrawal, uncomplicated (28) Urine retention Code(s): R33.9 - RETENTION OF URINE, UNSPECIFIED Assessment/Plan 84 Y M with a PMH of Dementia, HTN, Chronic Systolic CHFEF 40-45, Atrial fibrillation (not on AC), COPD, DM 2, Chronic Pancreatitis, Asthma, SAH s/p evacuation 10/22, Alcohol Abuse, brought to Ed by family with complaints of increasing confusion, unsteady gait, frequent falls over the past 2 weeks. Chronically elevated TNIs Not on AC due to falls and SDH 4 beats NSVT on tele Plan; Hyperkalemia resolved - restart Entresto, if BP tolerates increase Coreg to 12.5 BID. DVT plx Detox d/c telemetry
[2019-12-07] MEDS ORDERED: CARVEDILOL 12.5 MG TABLET (FP) PO SCH (11:45)
[2019-12-07 12:00] VITALS: BP 149/100; PULSE 89; TEMP 97.9
--- NOTE | 2019-12-07 12:37 | DS ---
Physical Exam: SUBJECTIVE: Patient seen and examined at bedside, he reports he is wheezing this morning. He would like to go home OBJECTIVE: Vital Signs Period Temp Pulse Resp BP Sys/Romero Pulse Ox Last 24 Hr 97.6 F-98.2 F 77-89 18-20 149-168/89-105 97-98 PHYSICAL EXAM GENERAL: The patient is awake, alert, and oriented to person and place only, in no acute distress. HEAD: Normal with no signs of trauma. EYES: PERRL, extraocular movements intact, sclera anicteric, conjunctiva clear. Right eye chemosis ENT: Ears normal, nares patent, oropharynx clear without exudates, moist mucous membranes. NECK: Trachea midline, full range of motion, supple. LUNGS: Breath sounds equal, clear to auscultation bilaterally, b/l upper lung field wheezes, no crackles, no accessory muscle use. HEART: Regular rate and rhythm, S1, S2 without murmur, rub or gallop. ABDOMEN: Soft, nontender, nondistended, normoactive bowel sounds, no guarding, no rebound, no hepatosplenomegaly, no masses. EXTREMITIES: 2+ pulses, warm, well-perfused, no edema. NEUROLOGICAL: Moving all extremities equally. Normal strength grossly not cooperative with exam PSYCH: Normal mood, normal affect. SKIN: Warm, dry, normal turgor, no rashes or lesions noted LABS Laboratory Results - last 24 hr 12/06/19 12/06/19 12/06/19 12:29 17:58 21:26 WBC RBC Hgb Hct MCV MCH MCHC RDW Plt Count MPV Absolute Neuts (auto) Neutrophils % Lymphocytes % Monocytes % Eosinophils % Basophils % Nucleated RBC % Sodium Potassium Chloride Carbon Dioxide Anion Gap BUN Creatinine Est GFR (CKD-EPI)AfAm Est GFR (CKD-EPI)NonAf POC Glucometer 104 147 145 Random Glucose Calcium Phosphorus Magnesium Total Bilirubin AST ALT Alkaline Phosphatase Total Protein Albumin 12/07/19 12/07/19 12/07/19 05:31 05:51 05:51 WBC 4.1 RBC 3.80 L Hgb 11.6 L Hct 35.4 MCV 93.2 MCH 30.5 MCHC 32.7 RDW 16.0 H Plt Count 156 MPV 9.9 Absolute Neuts (auto) 1.8 Neutrophils % 42.8 Lymphocytes % 41.2 H Monocytes % 11.2 H Eosinophils % 4.0 Basophils % 0.8 Nucleated RBC % 0 Sodium 139 Potassium 3.7 Chloride 106 Carbon Dioxide 27 Anion Gap 6 L BUN 13.0 Creatinine 0.8 Est GFR (CKD-EPI)AfAm 95.75 Est GFR (CKD-EPI)NonAf 82.61 POC Glucometer 124 Random Glucose 124 H Calcium 8.7 Phosphorus 2.6 Magnesium 1.5 L Total Bilirubin 0.5 AST 46 H ALT 20 Alkaline Phosphatase 60 Total Protein 6.1 L Albumin 2.4 L 12/07/19 11:20 WBC RBC Hgb Hct MCV MCH MCHC RDW Plt Count MPV Absolute Neuts (auto) Neutrophils % Lymphocytes % Monocytes % Eosinophils % Basophils % Nucleated RBC % Sodium Potassium Chloride Carbon Dioxide Anion Gap BUN Creatinine Est GFR (CKD-EPI)AfAm Est GFR (CKD-EPI)NonAf POC Glucometer 132 Random Glucose Calcium Phosphorus Magnesium Total Bilirubin AST ALT Alkaline Phosphatase Total Protein Albumin HOSPITAL COURSE: Date of Admission:12/04/19 84 Y M with a PMH of Dementia, HTN, Chronic Systolic CHF, Atrial fibrillation (not on AC), COPD, DM 2, Chronic Pancreatitis, Asthma, SAH s/p evacuation 10/22, Alcohol Abuse, brought to Ed by family with complaints of increasing confusion, unsteady gait, frequent falls over the past 2 weeks, admitted for acute toxic encephalopathy likely 2/2 to Alcohol intoxication. EtoH level: 323. CT head: no acute pathology. Labs showed, elevated lactic acid at 3.4, most likely due to dehydration. Neurology was consulted, and cleared him for detox/SNF facility. He was treated with Thiamine, Folic Acid, Multi vitamins. Cardiology was consulted and cleared him for detox/SNF. ECG - NSR, premature atrial complexes, no ST/T wave changes. Patient is clinically sober and stable for discharge. Patient is discharged to SNF facility, [facility]. Date of Discharge: 12/07/19 Minutes to complete discharge: 36 Discharge Summary Problems reviewed: Yes Reason For Visit: ATRIAL FIBRILATION,SEPSIS,ALTERED MENTAL STATUS, Current Active Problems AMS (altered mental status) (Acute) ETOH abuse (Acute) Sepsis (Acute) Condition: Stable - Instructions Diet, Activity, Other Instructions: YOUR VISIT: You were admitted to the hospital for confusion, unsteady gait, likely due to Alcohol intoxication. We evaluated you with CT head, labs, consulted neurology for your acute confusion. Imaging did not reveal any bleeding in your head. We treated you with fluid, thiamine and folic acid. Please DO NOT Take Coreg 6.25mg Please start to Take Coreg 12.5mg two times daily Continue to take all other home medications as prescribed We increased your Thiamine from 100mg to 200mg daily FOLLOW UPS: Please follow up with your cyber crime investigator after rehab to evaluate your heart. Please visit your primary care provider , Dr Ling after rehab for follow up with your lab work and hospital visit. Please follow up with the neurologist Dr Pathak ADDITIONAL INSTRUCTIONS: You are being discharged to rehab facility for alcohol detoxification Please return to the Emergency department if you are experiencing worsening or concerning symptoms. Referrals: Brodie Pathak MD [Staff Physician] - Shilo Jefferson MD [Staff Physician] - Disposition: I.P. ALCOHOL/SUBS ABUSE REHAB - Home Medications Comprehensive Discharge Medication List: Ambulatory Orders Aspirin [ASA -] 81 mg PO DAILY tab.chew 06/07/19 Folic Acid - 1 mg PO DAILY tablet 06/07/19 Carvedilol [Coreg -] 6.25 mg PO BID 11/17/19 Sacubitril/Valsartan [Entresto 97 mg-103 mg Tablet] 1 tab PO BID 11/17/19 Sitagliptin Phosphate [Januvia] 100 mg PO DAILY 11/17/19 Furosemide 20 mg PO BID 12/04/19 Ergocalciferol (Vitamin D2) [Vitamin D2] 50,000 unit PO WEEKLY 12/05/19 Thiamine Mononitrate [Vitamin B-1] 200 mg PO DAILY #30 tablet 12/05/19 Albuterol 2.5/Ipratropium 0.5 [Duoneb -] 1 amp NEB RTID amp 12/07/19 Carvedilol [Coreg -] 12.5 mg PO BID tablet 12/07/19 Cyanocobalamin [Vitamin B12 -] 1,000 mcg PO DAILY tablet 12/07/19 Multivitamins [Multivit ([facility] Formulary)] 1 tab PO DAILY tab 12/07/19 Naltrexone HCl [Revia -] 50 mg PO DAILY tablet 12/07/19 This patient is new to me today: No Emergency Visit: Yes ED Registration Date: 12/04/19 Care time: The patient presented to the Emergency Department on the above date and was hospitalized for further evaluation of their emergent condition. Critical Care patient: No - Discharge Referral Referred to [facility] No ATTENDING PHYSICIAN STATEMENT I saw and evaluated the patient. I reviewed the resident's note and discussed the case with the resident. I agree with the resident's findings and plan as documented. SUBJECTIVE: OBJECTIVE: ASSESSMENT AND PLAN:
--- NOTE | 2019-12-07 12:58 | PN ---
Teaching Attending Note Name of Resident: Lacy Davila ATTENDING PHYSICIAN STATEMENT I saw and evaluated the patient. I reviewed the resident's note and discussed the case with the resident. I agree with the resident's findings and plan as documented. SUBJECTIVE: pt seen and examined OBJECTIVE: Last Vital Signs Temp Pulse Resp BP Pulse Ox 97.9 F 89 18 149/100 97 12/07/19 10:00 12/07/19 10:00 12/07/19 10:00 12/07/19 10:00 12/07/19 06:00 HEENT - Atraumatic, Normocephalic. Heart - S1, S2, RRR Lungs - clear to auscultation Abdomen - Soft, non-tender. Bowel Sounds normal. Extremities - no edema, no calf tenderness. Neuro - AAO x 2. Tone/Power normal all extremities. CBCD WBC 4.1 K/mm3 (4.0-10.0) 12/07/19 05:51 RBC 3.80 M/mm3 (4.00-5.60) L 12/07/19 05:51 Hgb 11.6 GM/dL (11.7-16.9) L 12/07/19 05:51 Hct 35.4 % (35.4-49) 12/07/19 05:51 MCV 93.2 fl (80-96) 12/07/19 05:51 MCHC 32.7 g/dl (32.0-35.9) 12/07/19 05:51 RDW 16.0 % (11.9-15.9) H 12/07/19 05:51 Plt Count 156 K/MM3 (134-434) 12/07/19 05:51 MPV 9.9 fl (7.5-11.1) 12/07/19 05:51 CMP Sodium 139 mmol/L (136-145) 12/07/19 05:51 Potassium 3.7 mmol/L (3.5-5.1) 12/07/19 05:51 Chloride 106 mmol/L (98-107) 12/07/19 05:51 Carbon Dioxide 27 mmol/L (21-32) 12/07/19 05:51 Anion Gap 6 MMOL/L (8-16) L 12/07/19 05:51 BUN 13.0 mg/dL (7-18) 12/07/19 05:51 Creatinine 0.8 mg/dL (0.55-1.3) 12/07/19 05:51 Calcium 8.7 mg/dL (8.5-10.1) 12/07/19 05:51 Total Bilirubin 0.5 mg/dL (0.2-1) 12/07/19 05:51 AST 46 U/L (15-37) H 12/07/19 05:51 ALT 20 U/L (13-61) 12/07/19 05:51 Alkaline Phosphatase 60 U/L (45-117) 12/07/19 05:51 Total Protein 6.1 g/dl (6.4-8.2) L 12/07/19 05:51 Albumin 2.4 g/dl (3.4-5.0) L 12/07/19 05:51 Active Medications Albuterol/Ipratropium (Duoneb -) 1 amp NEB RTID [facility] Last Admin: 12/07/19 09:10 Dose: 1 amp Documented by: Aspirin (Asa -) 81 mg PO DAILY [facility] Last Admin: 12/07/19 09:23 Dose: 81 mg Documented by: Carvedilol (Coreg -) 12.5 mg PO BID [facility] Cyanocobalamin (Vitamin B12 -) 1,000 mcg PO DAILY [facility] Last Admin: 12/07/19 09:24 Dose: 1,000 mcg Documented by: Furosemide (Lasix -) 20 mg PO BIDLASIX [facility] Last Admin: 12/07/19 06:38 Dose: 20 mg Documented by: Heparin Sodium (Porcine) (Heparin -) 5,000 unit SQ BID [facility] Last Admin: 12/07/19 09:23 Dose: 5,000 unit Documented by: Insulin Aspart (Novolog Vial Sliding Scale -) 1 vial SQ ACHS [facility]; Protocol Last Admin: 12/07/19 11:25 Dose: Not Given Documented by: Multivitamins/Minerals/Vitamin C (Tab-A-Vit -) 1 tab PO DAILY [facility] Last Admin: 12/07/19 09:23 Dose: 1 tab Documented by: Naltrexone HCl (Revia -) 50 mg PO DAILY [facility] Last Admin: 12/07/19 09:23 Dose: 50 mg Documented by: Non-Formulary Medication (Disulfiram [Antabuse]) 250 mg PO DAILY [facility] Sacubitril/Valsartan (Entresto 97 Mg-103 Mg Tablet) 1 tab PO BID [facility] Last Admin: 12/07/19 09:23 Dose: 1 tab Documented by: Thiamine HCl (Vitamin B1 Injection -) 200 mg IVPB DAILY [facility] Last Admin: 12/07/19 11:08 Dose: 200 mg Documented by: ASSESSMENT AND PLAN: 84 year old male with history of Dementia, HTN, Chronic Systolic CHF, Atrial fibrillation (not on AC), COPD, DM 2, Chronic Pancreatitis, Asthma, SAH s/p evacuation 10/22, Alcohol Abuse, broought to Ed by family with complaints of increasing confusion, unsteady gait, frequent falls over the past week. # Acute Toxic Encephalopathy improved cause: Alcohol intoxication vs Wernicke's Encephalopathy High dose Thiamine, Folic Acid, MVI Cleared by Neurology trend electryolytes Running episodes of Vtach, BB increased per cardiology PT Cardiomyopathy/Systolic CHF. Atrial fibrillation, not on AC COPD DM 2 HTN DVT Prophylaxis
--- NOTE | 2019-12-07 13:13 | EKG ---
Test Reason : Blood Pressure : / mmHG Vent. Rate : 084 BPM Atrial Rate : 084 BPM P-R Int : 226 ms QRS Dur : 096 ms QT Int : 410 ms P-R-T Axes : 058 -13 077 degrees QTc Int : 484 ms SINUS RHYTHM with apc WITH 1ST DEGREE A-V BLOCK MINIMAL VOLTAGE CRITERIA FOR LVH, MAY BE NORMAL VARIANT SEPTAL INFARCT , AGE UNDETERMINED INFERIOR INFARCT ABNORMAL ECG Confirmed by MD DA, LEIGHTON ([id number]) on 12/07/2019 1:12:44 PM Referred By: Confirmed By:LEIGHTON ROBERSON MD
--- NOTE | 2019-12-07 18:23 | PN ---
Progress Note (short form) - Note Progress Note: 84 year old [facility] man with history of htn, AF( NO AC), COPD, DM, Pancreatitis, asthma, histoyr of SAH in October 22. Patient came with increasing confusion nd fall. He hinton history of alcohol abuse and on day of admission his alcohol level was high. Hi sblood pressure was low, hypotension and lactic acidosis. He does not have any history of flu like symptoms, trauma . His covid test was negative. there was no history of seizure, headahce or focal neurological symptoms. - patient i sfeeling better and oriented x 3 NEUROLOGICAL EXAMINATION Alert oriented x 2( dont know date), neck is supple vss, afebrile eomi, pupils reactive no face asymmetry moving all ext sensation is normal reflex are generalized diminished ct head is wnl Assessment/Plan Metabolic encephalopathy secondary to alcohol intoxication and have underlying alcohol related cognitive disturbance . There is no evidence of seizure, stroke or meningitis. patient is improving lcinically Plan: - alcohol withdrawal precautions -- follow up outpatient - clinically improved, supportive care, mvi, thiamine and folic acid Thanking you so much Brodie Pathak MD
== END 2019-12-07 14:00 | disposition other institution (70) | DRG 896 ==
LOC: JER 12:30 → JERBED 13:49 → J4W 12-05 20:42
PROVIDERS: ADMIT Student in an Organized Health Care Education/Training Program; ATTEND Student in an Organized Health Care Education/Training Program
PROC: HZ2ZZZZ Detoxification Services for Substance Abuse Treatment (ICD-10-PCS; principal; 2019-12-04)
DX: F10.121 Alcohol abuse with intoxication delirium (principal); G92 Toxic encephalopathy; I50.22 Chronic systolic (congestive) heart failure; E87.2 Acidosis; E51.2 Wernicke's encephalopathy; K86.1 Other chronic pancreatitis; I47.2 Ventricular tachycardia; I42.8 Other cardiomyopathies; I48.91 Unspecified atrial fibrillation; J44.9 Chronic obstructive pulmonary disease, unspecified; E11.9 Type 2 diabetes mellitus without complications; R41.82 Altered mental status, unspecified; I11.0 Hypertensive heart disease with heart failure; E86.0 Dehydration; R68.0 Hypothermia, not associated with low environmental temperature; I95.9 Hypotension, unspecified; E87.5 Hyperkalemia; Z86.718 Personal history of other venous thrombosis and embolism; Z96.651 Presence of right artificial knee joint; Y90.8 Blood alcohol level of 240 mg/100 ml or more; E83.42 Hypomagnesemia; R26.81 Unsteadiness on feet
CPT/HCPCS: 36415; 70450-TC; 71045-TC-FY; 80053; 80061; 80307; 81003; 82272; 82550; 82607; 82746; 82962; 83036; 83605; 83721; 83735; 84100; 84443; 84484; 85025; 85610; 85730; 86850; 86900; 86901; 87040; 87086; 93005; 93010; 94640; 97116-GP; 97161-GP; 99285-25; J1644; U0003

== ENCOUNTER 2020-01-03 09:37 | Inpatient (IN) | payer OTHER ==
--- NOTE | 2020-01-03 09:49 | PDOC ---
History of Present Illness <Ekta Coy - Last Filed: 01/03/20 12:39> - General History Source: Old Records Exam Limitations: Intoxication, Other (Severe AMS) - History of Present Illness Initial Comments: 01/03/20 10:07 84 y.o. M PMHx HTN, HFrEF, afib not on AC, COPD, DM2, chronic pancreatitis, asthma, SAH s/p evacuation 10/22, alcohol abuse. Patient was brought in by EMS from home and is AMS. Patient is oriented x1 when prompted he is unsure of the year or where he is located at this time. Patient is unable to follow commands and is confused. Patient is restless in bed but does not appear to be agitated. BP on arrival 66/41 MAP 50. PCP: Dr. Patel PMHx: HTN, HFrEF, afib not on AC, COPD, DM2, chronic pancreatitis, asthma, alcohol abuse PSHx: SAH s/p evacuation 10/22 Meds: In Chart Allergies: NKDA - Fluid bolus, sepsis workup, toxicology screen, Head CT. 01/03/20 10:14 Spoke with Patients son on the phone he states his father was in [place] for 3 weeks of rehab and was released 3 days ago, since then he has been drinking alcohol, somnolent/confused and has a decreased appetite. He reports his father had been drinking liquor this morning, 1 episode of emesis ( white color) and had an asthma exacerbation so they called EMS. 01/03/20 10:28 Is this a multiple visit Asthma Patient?: No Timing/Duration: unsure Severity: severe <Manuel Bonilla - Last Filed: 01/03/20 18:35> - General Chief Complaint: Altered Mental Status Stated Complaint: AMS Time Seen by Provider: 01/03/20 10:00 Past History <AnnelieseEkta - Last Filed: 01/03/20 12:39> - Medical History Anemia: No Asthma: Yes (ON ALBUTEROL INHALER) Cancer: No Cardiac Disorders: Yes (R Leg DVT) CVA: No COPD: Yes CHF: No DVT: Yes (Right leg) Dementia: No Diabetes: Yes (BORDERLINE) GI Disorders: No Disorders: No HTN: Yes Hypercholesterolemia: No Kidney Stones: No Liver Disease: No Seizures: No Thyroid Disease: No - Surgical History Abdominal Surgery: No Appendectomy: No Cardiac Surgery: No Cholecystectomy: No Lung Surgery: No Neurologic Surgery: Yes (R frontal craniotomy, subdural hematoma) Orthopedic Surgery: Yes (RIGHT KNEE REPLACEMENT IN 2006) - Reproductive History Testicular Surgery: No - Immunization History Td Vaccination: Yes TDAP Vaccination: Yes Immunization Up to Date: Yes - Psycho-Social/Smoking History Smoking History: Former smoker Have you smoked in the past 12 months: No If you are a former smoker, when did you quit?: 1973 <Manuel Bonilla - Last Filed: 01/03/20 18:35> - Medical History Allergies/Adverse Reactions: Allergies Allergy/AdvReac Type Severity Reaction Status Date / Time No Known Allergies Allergy Verified 01/03/20 09:39 Home Medications: Ambulatory Orders Aspirin [ASA -] 81 mg PO DAILY tab.chew 06/07/19 Folic Acid - 1 mg PO DAILY tablet 06/07/19 Sacubitril/Valsartan [Entresto 97 mg-103 mg Tablet] 1 tab PO BID 11/17/19 Sitagliptin Phosphate [Januvia] 100 mg PO DAILY 11/17/19 Furosemide 20 mg PO BID 12/04/19 Ergocalciferol (Vitamin D2) [Vitamin D2] 50,000 unit PO WEEKLY 12/05/19 Thiamine Mononitrate [Vitamin B-1] 200 mg PO DAILY #30 tablet 12/05/19 Albuterol 2.5/Ipratropium 0.5 [Duoneb -] 1 amp NEB RTID amp 12/07/19 Carvedilol [Coreg -] 12.5 mg PO BID tablet 12/07/19 Cyanocobalamin [Vitamin B12 -] 1,000 mcg PO DAILY tablet 12/07/19 Multivitamins [Multivit ([facility] Formulary)] 1 tab PO DAILY tab 12/07/19 Naltrexone HCl [Revia -] 50 mg PO DAILY tablet 12/07/19 Review of Systems - Review of Systems Able to Perform ROS?: No Is the patient limited Lao proficient: No <Manuel Bonilla - Last Filed: 01/03/20 18:35> *Physical Exam - Vital Signs Last Vital Signs Temp Pulse Resp BP Pulse Ox 97.4 F L 72 18 88/63 L 94 L 01/03/20 09:54 01/03/20 11:59 01/03/20 11:59 01/03/20 11:59 01/03/20 11:59 <Ekta Coy - Last Filed: 01/03/20 12:39> - Physical Exam General Appearance: Yes: Nourished, Appropriately Dressed Respiratory/Chest: positive: Lungs Clear, Normal Breath Sounds. negative: Chest Tender, Respiratory Distress, Accessory Muscle Use, Crackles, Rales, Rhonchi, Stridor, Wheezing Cardiovascular: positive: Regular Rhythm. negative: Regular Rate, Edema, JVD, Murmur Gastrointestinal/Abdominal: positive: Normal Bowel Sounds, Flat, Soft, Organomegaly, Protuberent. negative: Tender, Distended, Guarding, Rebound, Tenderness Musculoskeletal: positive: Normal Inspection. negative: CVA Tenderness Extremity: positive: Normal Inspection, Other (venous statis on the b/l LE). negative: Tender, Swelling, Calf Tenderness Integumentary: positive: Normal Color, Dry, Warm Neurologic: positive: Fully Oriented, Alert, Normal Mood/Affect, Normal Response <Manuel Bonilla - Last Filed: 01/03/20 18:35> ED Treatment Course - LABORATORY CBC & Chemistry Diagram: 01/03/20 10:00 01/03/20 10:00 - ADDITIONAL ORDERS Additional order review: Laboratory Results 01/03/20 01/03/20 01/03/20 10:00 10:00 10:00 PT with INR INR PTT (Actin FS) Sodium 137 Potassium 4.2 Chloride 106 Carbon Dioxide 23 Anion Gap 8 BUN 8.4 Creatinine 1.1 Est GFR (CKD-EPI)AfAm 71.57 Est GFR (CKD-EPI)NonAf 61.75 Random Glucose 151 H Lactic Acid 3.3 H* Calcium 8.6 Total Bilirubin 0.4 AST 26 ALT 19 Alkaline Phosphatase 61 Ammonia 33.60 H Troponin I Total Protein 5.8 L Albumin 2.6 L Salicylates Acetaminophen Alcohol, Quantitative 150.8 H 01/03/20 01/03/20 01/03/20 10:00 10:00 10:00 PT with INR 14.20 H INR 1.20 H PTT (Actin FS) 35.3 Sodium Potassium Chloride Carbon Dioxide Anion Gap BUN Creatinine Est GFR (CKD-EPI)AfAm Est GFR (CKD-EPI)NonAf Random Glucose Lactic Acid Calcium Total Bilirubin AST ALT Alkaline Phosphatase Ammonia Troponin I 0.16 H Total Protein Albumin Salicylates < 1.7 L Acetaminophen < 2.0 Alcohol, Quantitative 01/03/20 10:00 RBC 4.07 MCV 91.2 MCHC 32.6 RDW 16.5 H MPV 8.9 D Neutrophils % 52.2 D Lymphocytes % 31.3 D Monocytes % 11.4 H Eosinophils % 4.1 Basophils % 1.0 - Medications Given in the ED: ED Medications Discontinued Medications Generic Name Dose Route Start Last Admin Trade Name Freddie PRN Reason Stop Dose Admin Lactated Ringer's 1,000 ml 01/03/20 10:38 01/03/20 10:39 Lactated Ringers Solution IV 01/03/20 10:39 1,000 ml NOW ONE Administration Lactated Ringer's 1,000 ml 01/03/20 11:04 01/03/20 12:00 Lactated Ringers Solution IV 01/03/20 11:05 Not Given ONCE ONE <Ekta Coy - Last Filed: 01/03/20 12:39> - LABORATORY CBC & Chemistry Diagram: 01/03/20 10:00 01/03/20 10:00 <Manuel Bonilla - Last Filed: 01/03/20 18:35> Medical Decision Making - Medical Decision Making 01/03/20 10:15 84 y.o. M PMHx HTN, HFrEF, afib not on AC, COPD, DM2, chronic pancreatitis, asthma, SAH s/p evacuation 10/22, alcohol abuse. Patient was brought in by EMS from home. DDx: AMS secondary to Alcohol abuse, Sepsis Labs: INR 1.2, Lactic acid 3.3, ammonia 33.6, trops 0.16, alcohol 150.8 CT head: No acute intracranial pathology EKG: Sinus, 1st degree block w/ PAC's, QTc 476ms, rate 88 01/03/20 10:47 Dispo: Admission to med-surg 01/03/20 13:46 <Manuel Bonilla - Last Filed: 01/03/20 18:35> Discharge - Admission Yes <Ekta Coy - Last Filed: 01/03/20 12:39> - Discharge Information Problems reviewed: Yes - Admission Yes <Manuel Bonilla - Last Filed: 01/03/20 18:35> - Discharge Information Clinical Impression/Diagnosis: Chronic alcoholism, Lactic acidosis Alcohol intoxication Qualifiers: Complication of substance-induced condition: uncomplicated Qualified Code(s): F10.920 - Alcohol use, unspecified with intoxication, uncomplicated AMS (altered mental status) Qualifiers: Altered mental status type: unspecified Qualified Code(s): R41.82 - Altered mental status, unspecified Hypotension Qualifiers: Hypotension type: unspecified hypotension type Qualified Code(s): I95.9 - Hypotension, unspecified
[2020-01-03 09:56] VITALS: BMI 34.4
--- OUTSIDE RECORDS SUMMARY | 2020-01-03 10:13 | XMS ---
:1935 Author Organization [facility] Care Team Providers Name Role Phone MD Mauricio Patel Unavailable Unavailable MD Kayden Wise Unavailable Unavailable Van Peacock Unavailable Unavailable Re-disclosure Warning The records that you are about to access may contain information from federally- assisted alcohol or drug abuse programs. If such information is present, then the following federally mandated warning applies: This information has been disclosed to you from records protected by federal confidentiality rules (42 CFR part 2). The federal rules prohibit you from making any further disclosure of this information unless further disclosure is expressly permitted by the written consent of the person to whom it pertains or as otherwise permitted by 42 CFR part 2. A general authorization for the release of medical or other information is NOT sufficient for this purpose. The Federal rules restrict any use of the information to criminally investigate or prosecute any alcohol or drug abuse patient.The records that you are about to access may contain highly sensitive health information, the redisclosure of which is protected by Article 27-F of the [place] State Public Health law. If you continue you may haveaccess to information: Regarding HIV / AIDS; Provided by facilities licensed or operated by the [facility] Office of Mental Health; or Provided by the [facility] Office for People With Developmental Disabilities. If such information is present, then the following [facility] mandated warning applies: This information has been disclosed to you from confidential records which are protected by state law. State law prohibits you from making any further disclosure of this information without the specific written consent of the person to whom it pertains, or as otherwise permitted by law. Any unauthorized further disclosure in violation of state law may result in a fine or long-term sentence or both. A general authorization for the release of medical or other information is NOT sufficient authorization for further disclosure. Encounters Encounter Providers Location Date Indications Data Source(s ) Outpatient Attender: MD Steinberg-RAD DEPT 08/20/2018 [facility] - Narendra Wise 10:25:00 AM Hospital EDT - 08/20/2018 11:59:00 PM EDT Patient discharged. Inpatient Attender: MD Monique ICU-5J 08/18/2018 E80.6 [facility] Andrew Farrisender: MD Martínez 04:25:00 PM Hyperbiliru binemia Tiffanyhilary Hughesttender: EDT - [facility] edward Araujo 08/24/2018 TiongsonAdmitter: 05:33:00 PM Mauricio Patel EDT E80.6 Hyperbilirubinemia Patient discharged. Medications Medication Brand Start Product Dose Route Administrative Pharmacy [facility] Indications Reaction Description Data Name Date Form Instructions Instructions Source(s) Albuterol albute 1 RESPIR complet [facility] 0.09 rol {INHL ATORY ed Health MG/ACTUAT with } (INHAL System Metered CFC 90 ATION) Dose mcg/in Inhaler h albuterol inhala with CFC 90 tion mcg/inh aeroso inhalation l aerosol (obsol (obsolete) ete) bimatoprost Lumiga SOLUTION 1 OPHTHA complet [facility] 0.1 MG/ML n {gtt} LMIC [facility] Ophthalmic 0.01% System Solution ophtha [Lumigan] lmic Lumigan soluti 0.01% on ophthalmic solution fluticasone Breo POWDER 1 RESPIR complet [facility] furoate 0.1 Ellipt {puff ATORY ed Heal th MG/ACTUAT / a 100 (s)} (INHAL Syste m vilanterol mcg-25 ATION) 0.025 mcg/in MG/ACTUAT h Dry Powder inhala Inhaler tion Breo powder Ellipta 100 mcg-25 mcg/inh inhalation powder Metformin metFOR TABLET 1 ORAL complet [facility] hydrochlori MIN {cap( ed [facility] de 500 MG 500 mg s)} System Oral Tablet oral metFORMIN tablet 500 mg oral tablet quetiapine QUEtia 1 complet Fede t 50 MG Oral pine ed Audrey Tablet 50 mg Medical QUEtiapine Tablet Center 50 mg , Tablet, Ordere Ordered By: d By: Neelima Mathis MDDirection ch, s: 1 tablet MDDire oral daily ctions at bedtime : 1 tablet oral daily at bedtim e carvedilol Coreg TABLET 1 ORAL complet [facility] 25 MG Oral 25 mg {tab( ed Health Tablet oral s)} System [Coreg] tablet Coreg 25 mg oral tablet Insurance Providers Payer name Policy type / Policy ID Covered Covered constitution party's Policy Plan Coverage type constitution party ID relationship to [place] [employer] [place] DOROTHEA MEDICARE [id number] SP [id number] HIP MEDICARE [id number] SP [id number] VIP VALUE [id number] SP [id number] OPTIONS-MEDIC ARE DOROTHEA MEDICARE [id number] SP [id number] MEDICARE [id number] SP [id number] A NR/MV [employer] Commercial [id number] Facility Services Medicare IME Medicare [id number] 1 [id number] [place] [id number] HIP VIP Medicare [place] [id number] HIP VIP Medicare Medicare Part Medicare [id number] 1 [id number] Outpatient Problems, Conditions, and Diagnoses Code Display Name Description Problem Type Effective Data Dates Source(s) R17 Unspecified jaundice Elevated bilirubin Diagnosis 019 [facility] 10:25:00 AM [facility] K86.89 Other specified Calculus of pancreas Diagnosis 08/20/2018 [facility] diseases of pancreas 10:25:00 AM [facility] N28.1 Cyst of kidney, Acquired bilateral Diagnosis 08/20/2018 [facility] acquired renal cysts 10:25:00 AM [facility] K80.20 Calculus of Cholelithiasis Diagnosis 08/20/2018 [facility] Eladia nt gallbladder without 10:25:00 AM Parth on cholecystitis without EDT Hos pital obstruction [id number] Injection of Injection of Diagnosis 08/19/2018 [facility] - New anti-inflammatory anti-inflammatory 12:00:00 AM Tiffany into respiratory into respiratory EDT Ho spital tract tract E11.9 Type 2 diabetes Type 2 diabetes Diagnosis 08/18/2018 [facility] - New mellitus without mellitus without 07:59:00 PM R ochelle complications complication EDT Hospital R33.9 Retention of urine, Retention of urine Diagnosis 08/19/19 19 [facility] - New unspecified 07:59:00 PM [facility] Z87.891 Personal history of History of nicotine Diagnosis 019 [facility] - New nicotine dependence [facility]59[facility] K64.8 Other hemorrhoids Other hemorrhoids Diagnosis 08/18/2018 [facility] - New 07:59:00 PM [facility] E80.6 Other disorders of Hyperbilirubinemia Diagnosis 9 [facility] - New bilirubin metabolism 07:59:00 PM [facility] K80.80 Other cholelithiasis Other cholelithiasis Diagnosis 08/18 [facility] - New without obstruction without obstruction 07:59:0 0 PM [facility] 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 08/18 [facility] - New use of insulin of insulin 07:59:00 PM [facility] D50.0 Iron deficiency Iron deficiency Diagnosis 08/18/2018 [facility] - New 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 07:59 :00 PM [place] blood loss (chronic) blood loss EDT Hosp ital E87.1 Hypo-osmolality and Hyponatremia, Diagnosis 08/18/2018 [facility] S - New hyponatremia hypo-osmolarity, or 07:59:00 PM Ro mandy hypo-osmolar EDT Hospital hyponatremia E80.6 E80.6 Diagnosis 08/18/2018 [facility] - New Hyperbilirubinemia Hyperbilirubinemia 07:59:00 PM [facility] K57.30 Diverticulosis of Diverticulosis of Diagnosis 08/18/2018 [facility] - New large intestine large intestine 07:59:00 PM [facility] without perforation without perforation EDT Hospital or abscess without or abscess without bleeding bleeding E86.0 Dehydration Dehydration Diagnosis 08/18/2018 [facility] - New 07:59:00 PM [facility] K86.2 Cyst of pancreas Cyst of pancreas Diagnosis 08/18/2018 S - New 07:59:00 PM [facility] J44.9 Chronic obstructive Chronic obstructive Diagnosis 019 [facility] pulmonary disease, pulmonary disease 07:59:00 P M [place] unspecified [facility] D12.4 Benign neoplasm of Benign neoplasm of Diagnosis 9 S - [facility] descending colon descending colon 07:59:00 PM R [facility] K70.10 Alcoholic hepatitis Alcoholic hepatitis Diagnosis 019 [facility] without ascites without ascites 07:59:00 PM [facility] F10.10 Alcohol abuse, Uncomplicated alcohol Diagnosis 08/18/2018 [facility] uncomplicated abuse 07:59:00 PM [facility] WEAKNESS/ DEHYDRATION WEAKNESS/ DEHYDRATION Diagnosis [facility] 04:25:00 PM [facility] K70.10 Alcoholic hepatitis Alcoholic hepatitis Diagnosis 019 [facility] without ascites 12:00:00 AM [facility] E80.6 Hyperbilirubinemia Hyperbilirubinemia Diagnosis [facility] Surgeries/Procedures Procedure Description Date Indications Data Source(s) Tissue Exam 08/24/2018 [facility] 01:10:00 PM EDT System - 08/24/2018 01:10:00 PM EDT PT/INR 08/18/2018 [facility] 09:35:00 PM EDT System - 08/18/2018 09:35:00 PM EDT Electrocardiogram 12 Lead 08/18/2018 [facility] 05:43:00 PM EDT System - 08/18/2018 05:43:00 PM EDT Results ID Date Data Source [id number] 12/07/2019 12:00:00 AM EDT [facility] Name Value Range Interpretation Code Description Data Shelli rce(s) Supporting Document(s ) 2019-nCoV [facility] RNA XXX MIKE+probe- Imp This lab was ordered by [facility] [employer] and reported by [employer] ID Date Data Source [id number] 12/04/2019 03:11:00 PM EDT [facility] Name Value Range Interpretation Description Data Sup porting Code Source(s) Document(s ) SARS [facility] coronavirus 2 RNA This lab was ordered by [facility] and reported by [facility]. ID Date Data Source [id number] 09/17/2019 04:08:00 PM EDT [facility] Name Value Range Interpretation Description Data Sup porting Code Source(s) Document(s ) SARS [facility] coronavirus 2 RNA This lab was ordered by Vamshi Bridges and reported by [facility]. ID Date Data Source [id number] 08/24/2018 01:10:00 PM EDT [facility] Name Value Range Interpretation Description Data Sup porting Code Source(s) Document(s ) Tissue Results for case # Normal (applies Tissue Exam [facility] Exam [id number] to non-numeric Health SURGICAL PATHOLOGY results) System REPORTCLINICAL INFORMATION: GI bleeding. PREOPERATIVE DIAGNOSIS: Same. POSTOPERATIVE DIAGNOSIS: Diverticulosis, colon polyp, hemorrhoids. FINAL DIAGNOSIS: Colon, descending, biopsy:Tubular adenoma.GO/Prem LUNA MDElectronically Signed By: GROSS DESCRIPTION: In formalin in a collection device, labeled "descending colon polyp", the specimen consists of 1 castañeda-pink polyp measuring 0.4cm in greatest dimension. The specimen is submitted in toto in one cassette. DJ/stPage 1 of 1 ID Date Data Source [id number] 08/24/2018 06:13:00 AM EDT [facility] Name Value Range Interpretation Description Data Sup porting Code Source(s) Document(s ) Polychromasia Slight Abnormal Polychromasia [facility] [Presence] in (applies to Health Blood by Light non-numeric System microscopy results) Anisocytosis Slight Normal (applies Anisocytosis [facility] [Presence] in to non-numeric Health Blood by results) System Automated count MACRO Moderate Abnormal MACRO [facility] (applies to Health non-numeric System results) Microcytes Slight Abnormal Microcytosis [facility] [Presence] in (applies to Health Blood by non-numeric System Automated count results) Target cells Few Normal (applies Target Cells [facility] [Presence] in to non-numeric Health Blood by Light results) System microscopy [place] Present Normal (applies [place] [facility] bodies to non-numeric Bodies Health [Presence] in results) System Blood by Light microscopy PAPPEN Present Normal (applies PAPPEN [facility] to non-numeric Health results) System Platelets Adequate Normal Normal (applies Platelet Count [facility] [#/volume] in to non-numeric Estimate Health Blood by results) System Estimate ID Date Data Source [id number] 08/24/2018 06:13:00 AM EDT [facility] Name Value Range Interpretation Description Data Sup porting Code Source(s) Document(s ) Leukocytes 5.5 4.8 - Normal (applies WBC Count [facility] [#/volume] in {10^3_u 10.8 to non-numeric Health Unspecified L} 10^3 uL results) System specimen by Automated count Erythrocytes 2.62 4.70 - Below low normal RBC Count [facility] [#/volume] in {10^6_u 6.10 Health Blood by L} 10^6 uL System Automated count Hemoglobin 8.3 14.0 - Below low normal Hemoglobin [facility] [Mass/volume] in {gm/dL} 18.0 Health Blood gm/dL System Hematocrit 26.0 % 42.0 - Below low normal Hematocrit [facility] [Volume 52.0 % Health Fraction] of System Blood Erythrocyte mean 99.2 fl 81.0 - Above high MCV [facility] corpuscular 99.0 fl normal Health volume [Entitic System volume] by Automated count Erythrocyte mean 31.7 pg 27.0 - Above high MCH [facility] corpuscular 31.0 pg normal Health hemoglobin System [Entitic mass] by Automated count Erythrocyte mean 31.9 30.0 - Normal (applies MCHC [facility] corpuscular {gm/dL} 35.0 to non-numeric Health hemoglobin gm/dL results) System concentration [Mass/volume] by Automated count Erythrocyte 18.6 % 11.5 - Above high RDW-CV [facility] distribution 14.5 % normal Health width [Entitic System volume] by Automated count Platelets 326 130 - Normal (applies Platelet Count [facility] [#/volume] in {10^3_u 400 to non-numeric Health Plasma by L} 10^3 uL results) System Automated count Platelet mean 10.6 fl 8.6 - Normal (applies MPV [facility] volume [Entitic 13.5 fl to non-numeric Health volume] in Blood results) System by Automated count Nucleated 0.7 0.0 - Above high NRBC % [facility] erythrocytes {/100_W 0.2 normal Health [#/volume] in BC} /100 System Body fluid WBC NRBC # 0.04 0.00 - Above high NRBC # [facility] {10^3_u 0.01 normal Health L} 10^3 uL System Neutrophils/100 50.9 % 55.0 - Below low normal Neutrophil % [place] [facility] leukocytes in 75.0 % Health Blood by System Automated count Neutrophils 2.8 2.6 - Normal (applies Neutrophil # [facility] [#/volume] in {10^3_u 8.1 to non-numeric Health Body fluid L} 10^3 uL results) System Lymphocytes 33.8 % 15.0 - Normal (applies Lymphocyte % [facility] [#/volume] in 41.0 % to non-numeric Health Blood by results) System Automated count Lymphocyte # 1.9 1.0 - Normal (applies Lymphocyte # [facility] {10^3_u 4.8 to non-numeric Health L} 10^3 uL results) System Monocytes/100 10.7 % 2.0 - Above high Monocyte % [facility] leukocytes in 9.0 % normal Health Blood System Monocytes 0.6 0.1 - Normal (applies Monocyte # [facility] [#/volume] in {10^3_u 1.0 to non-numeric Health Blood by Manual L} 10^3 uL results) System count Eosinophils/100 2.2 % 0.0 - Normal (applies Eosinophil % [place] leukocytes in 5.0 % to non-numeric Health Unspecified results) System specimen Eosinophils 0.12 0.00 - Normal (applies Eosinophil # [facility] [#/volume] in {10^3_u 0.50 to non-numeric Health Blood L} 10^3 uL results) System Basophils/100 0.9 % 0.0 - Normal (applies Basophil % [facility] leukocytes in 1.0 % to non-numeric Health Unspecified results) System specimen by Manual count Basophils 0.05 0.00 - Normal (applies Basophil # [facility] [#/volume] in {10^3_u 0.10 to non-numeric Health Blood by L} 10^3 uL results) System Automated count Immature 0.08 0.00 - Normal (applies Immature [facility] Granulocytes # {10^3_u 0.09 to non-numeric Granulocytes # Healt h L} 10^3 uL results) System Immature 1.5 % 0.0 - Above high Immature [facility] Granulocytes % 0.8 % normal Granulocytes % Health System ID Date Data Source [id number] 08/24/2018 06:13:00 AM EDT [facility] Name Value Range Interpretation Description Data Sup porting Code Source(s) Document(s ) Sodium 137 135 - Normal (applies Sodium, Serum [facility] [Moles/volume] in mmol/L 145 to non-numeric Health Serum or Plasma mmol/L results) System Potassium 4.2 3.5 - Normal (applies Potassium, [facility] [Mass/volume] in mmol/L 5.0 to non-numeric Serum Health Serum or Plasma mmol/L results) System Chloride 103 101 - Normal (applies Chloride, [facility] [Moles/volume] in mmol/L 111 to non-numeric Serum Health Serum or Plasma mmol/L results) System Carbon dioxide, 27.3 21.0 - Normal (applies CO2, Serum [facility] total mmol/L 31.0 to non-numeric Health [Moles/volume] in mmol/L results) System Serum or Plasma Total Protein 5.2 6.4 - Below low normal Total Protein [place] mg/dl 8.1 Health mg/dl System Glucose 90 65 - Normal (applies Glucose, [facility] [Mass/volume] in mg/dL 110 to non-numeric Serum Health Serum or Plasma mg/dL results) System Urea nitrogen 7 mg/dl 9 - 21 Below low normal Blood Urea [facility] [Mass/volume] in mg/dl Nitrogen, Health Serum or Plasma Serum System Creatinine 0.68 0.50 - Normal (applies Creatinine, [facility] [Mass/volume] in mg/dl 1.20 to non-numeric Serum Health Serum or Plasma mg/dl results) System Alkaline 109 42 - Normal (applies Alkaline [facility] phosphatase {IU/L} 121 to non-numeric Phosphatase, Health isoenzymes IU/L results) Serum System [Enzymatic activity/volume] in Serum or Plasma by Heat stability Bilirubin.total 2.4 0.2 - Above high Bilirubin, [facility] [Mass/volume] in mg/dl 1.2 normal Serum Total Health Serum or Plasma mg/dl System Direct Bilirubin 1.2 0.0 - Above high Direct [facility] mg/dl 0.4 normal Bilirubin Health mg/dl System Aspartate 71 10 - 42 Above high Aspartate [facility] aminotransferase {IU/L} IU/L normal Transaminase, Health [Enzymatic Serum System activity/volume] in Serum or Plasma by With P-5'-P Albumin 2.5 3.2 - Below low normal Albumin, [facility] [Mass/volume] in {gm/dl} 5.5 Serum Health Serum or Plasma gm/dl System I. Phosphorus 3.6 2.6 - Normal (applies I. Phosphorus [facility] mg/dl 4.9 to non-numeric Health mg/dl results) System Alanine 94 10 - 42 Above high Alanine [facility] aminotransferase {IU/L} IU/L normal Aminotransfer Health [Enzymatic ase, Serum System activity/volume] in Serum or Plasma Calcium 8.2 8.4 - Below low normal Calcium, [facility] [Mass/volume] in mg/dl 10.2 Total Serum Health Serum or Plasma mg/dl System A/G Ratio 0.93 Normal (applies A/G Ratio [facility] to non-numeric Health results) System Urate 6.4 2.3 - Normal (applies Uric Acid, [facility] [Mass/volume] in mg/dl 7.5 to non-numeric Serum Health Serum or Plasma mg/dl results) System Anion gap in Serum 6.70 Normal (applies Anion Gap [place] or Plasma mmol/L to non-numeric Health results) System Glomerular > 90 Normal (applies GFR [facility] filtration to non-numeric Health rate/1.73 sq results) System M.predicted [Volume Rate/Area] in Serum or Plasma by Creatinine-based formula (CKD-EPI) eGFR will provide clinicians with a more accurate indicator of renal function then the serum creatinine. The eGFR is automa tically calculated from an empiric formula (endorsed by the National [employer] ion) which incorporates age, sex, and race.Clinicians may notice surprisingly low GFR's with serum creatinine valueswithin normal range- particularly in elderly wo men (with low muscle mass).In the hospital setting, the eGFR should add an element of safety in drug dosing, in assessing the risk of IV contrast administration, and in assessing vascular risk.The NKF staging system is as follows:Normal: eGFR >90 with no kidney markersStage 1: eGFR >90 with kidney markers*Stage 2: eGFR 60- 89Stage 3: eGFR 30-59Stage 4: eGFR 15-29Stage 5: eGFR <15 (usually requir ing dialysis)*Markers include: Proteinuria, Hematuria, abnormal imaging-studies, or other blood or urine test abnormalities ID Date Data Source [id number] 08/23/2018 07:40:00 AM EDT [facility] Name Value Range Interpretation Description Data Sup porting Code Source(s) Document(s ) Leukocytes 6.1 4.8 - Normal (applies WBC Count [facility] [#/volume] in {10^3_u 10.8 to non-numeric Health Unspecified L} 10^3 uL results) System specimen by Automated count Erythrocytes 2.71 4.70 - Below low normal RBC Count [facility] [#/volume] in {10^6_u 6.10 Health Blood by L} 10^6 uL System Automated count Hemoglobin 8.5 14.0 - Below low normal Hemoglobin [facility] [Mass/volume] in {gm/dL} 18.0 Health Blood gm/dL System Hematocrit 26.4 % 42.0 - Below low normal Hematocrit [facility] [Volume 52.0 % Health Fraction] of System Blood Erythrocyte mean 97.4 fl 81.0 - Normal (applies MCV [facility] corpuscular 99.0 fl to non-numeric Health volume [Entitic results) System volume] by Automated count Erythrocyte mean 31.4 pg 27.0 - Above high MCH [facility] corpuscular 31.0 pg normal Health hemoglobin System [Entitic mass] by Automated count Erythrocyte mean 32.2 30.0 - Normal (applies MCHC [facility] corpuscular {gm/dL} 35.0 to non-numeric Health hemoglobin gm/dL results) System concentration [Mass/volume] by Automated count Erythrocyte 18.7 % 11.5 - Above high RDW-CV [facility] distribution 14.5 % normal Health width [Entitic System volume] by Automated count Platelets 313 130 - Normal (applies Platelet Count [facility] [#/volume] in {10^3_u 400 to non-numeric Health Plasma by L} 10^3 uL results) System Automated count Platelet mean 10.4 fl 8.6 - Normal (applies MPV [facility] volume [Entitic 13.5 fl to non-numeric Health volume] in Blood results) System by Automated count Nucleated 1.6 0.0 - Above high NRBC % [facility] erythrocytes {/100_W 0.2 normal Health [#/volume] in BC} /100 System Body fluid WBC NRBC # 0.10 0.00 - Above high NRBC # [facility] {10^3_u 0.01 normal Health L} 10^3 uL System Neutrophils/100 48.4 % 55.0 - Below low normal Neutrophil % [place] [facility] leukocytes in 75.0 % Health Blood by System Automated count Neutrophils 3.0 2.6 - Normal (applies Neutrophil # [facility] [#/volume] in {10^3_u 8.1 to non-numeric Health Body fluid L} 10^3 uL results) System Lymphocytes 36.8 % 15.0 - Normal (applies Lymphocyte % [facility] [#/volume] in 41.0 % to non-numeric Health Blood by results) System Automated count Lymphocyte # 2.3 1.0 - Normal (applies Lymphocyte # [facility] {10^3_u 4.8 to non-numeric Health L} 10^3 uL results) System Monocytes/100 10.5 % 2.0 - Above high Monocyte % [facility] leukocytes in 9.0 % normal Health Blood System Monocytes 0.6 0.1 - Normal (applies Monocyte # [facility] [#/volume] in {10^3_u 1.0 to non-numeric Health Blood by Manual L} 10^3 uL results) System count Eosinophils/100 2.5 % 0.0 - Normal (applies Eosinophil % [place] leukocytes in 5.0 % to non-numeric Health Unspecified results) System specimen Eosinophils 0.15 0.00 - Normal (applies Eosinophil # [facility] [#/volume] in {10^3_u 0.50 to non-numeric Health Blood L} 10^3 uL results) System Basophils/100 0.8 % 0.0 - Normal (applies Basophil % [facility] leukocytes in 1.0 % to non-numeric Health Unspecified results) System specimen by Manual count Basophils 0.05 0.00 - Normal (applies Basophil # [facility] [#/volume] in {10^3_u 0.10 to non-numeric Health Blood by L} 10^3 uL results) System Automated count Immature 0.06 0.00 - Normal (applies Immature [facility] Granulocytes # {10^3_u 0.09 to non-numeric Granulocytes # Healt h L} 10^3 uL results) System Immature 1.0 % 0.0 - Above high Immature [facility] Granulocytes % 0.8 % normal Granulocytes % Health System ID Date Data Source [id number] 08/23/2018 07:40:00 AM EDT [facility] Name Value Range Interpretation Description Data Sup porting Code Source(s) Document(s ) Sodium 136 135 - Normal (applies Sodium, Serum [facility] [Moles/volume] in mmol/L 145 to non-numeric Health Serum or Plasma mmol/L results) System Potassium 4.3 3.5 - Normal (applies Potassium, [facility] [Mass/volume] in mmol/L 5.0 to non-numeric Serum Health Serum or Plasma mmol/L results) System Chloride 102 101 - Normal (applies Chloride, [facility] [Moles/volume] in mmol/L 111 to non-numeric Serum Health Serum or Plasma mmol/L results) System Carbon dioxide, 27.0 21.0 - Normal (applies CO2, Serum [facility] total mmol/L 31.0 to non-numeric Health [Moles/volume] in mmol/L results) System Serum or Plasma Total Protein 5.4 6.4 - Below low normal Total Protein [facility] mg/dl 8.1 Health mg/dl System Glucose 98 65 - Normal (applies Glucose, [facility] [Mass/volume] in mg/dL 110 to non-numeric Serum Health Serum or Plasma mg/dL results) System Urea nitrogen 8 mg/dl 9 - 21 Below low normal Blood Urea [facility] [Mass/volume] in mg/dl Nitrogen, Health Serum or Plasma Serum System Creatinine 0.76 0.50 - Normal (applies Creatinine, [facility] [Mass/volume] in mg/dl 1.20 to non-numeric Serum Health Serum or Plasma mg/dl results) System Alkaline 106 42 - Normal (applies Alkaline [facility] phosphatase {IU/L} 121 to non-numeric Phosphatase, Health isoenzymes IU/L results) Serum System [Enzymatic activity/volume] in Serum or Plasma by Heat stability Bilirubin.total 2.4 0.2 - Above high Bilirubin, [facility] [Mass/volume] in mg/dl 1.2 normal Serum Total Health Serum or Plasma mg/dl System Direct Bilirubin 1.3 0.0 - Above high Direct [facility] mg/dl 0.4 normal Bilirubin [facility] mg/dl System Aspartate 67 10 - 42 Above high Aspartate [facility] aminotransferase {IU/L} IU/L normal Transaminase, Health [Enzymatic Serum System activity/volume] in Serum or Plasma by With P-5'-P Albumin 2.5 3.2 - Below low normal Albumin, [facility] [Mass/volume] in {gm/dl} 5.5 Serum Health Serum or Plasma gm/dl System I. Phosphorus 3.5 2.6 - Normal (applies I. Phosphorus [facility] mg/dl 4.9 to non-numeric Health mg/dl results) System Alanine 95 10 - 42 Above high Alanine [facility] aminotransferase {IU/L} IU/L normal Aminotransfer Health [Enzymatic ase, Serum System activity/volume] in Serum or Plasma Calcium 8.2 8.4 - Below low normal Calcium, [facility] [Mass/volume] in mg/dl 10.2 Total Serum Health Serum or Plasma mg/dl System A/G Ratio 0.86 Normal (applies A/G Ratio [facility] to non-numeric Health results) System Urate 6.0 2.3 - Normal (applies Uric Acid, [facility] [Mass/volume] in mg/dl 7.5 to non-numeric Serum Health Serum or Plasma mg/dl results) System Anion gap in Serum 7.00 Normal (applies Anion Gap [facility] or Plasma mmol/L to non-numeric Health results) System Glomerular > 90 Normal (applies GFR [facility] filtration to non-numeric Health rate/1.73 sq results) System M.predicted [Volume Rate/Area] in Serum or Plasma by Creatinine-based formula (CKD-EPI) eGFR will provide clinicians with a more accurate indicator of renal function then the serum creatinine. The eGFR is automa tically calculated from an empiric formula (endorsed by the [employer] ion) which incorporates age, sex, and race.Clinicians may notice surprisingly low GFR's with serum creatinine valueswithin normal range- particularly in elderly wo men (with low muscle mass).In the hospital setting, the eGFR should add an element of safety in drug dosing, in assessing the risk of IV contrast administration, and in assessing vascular risk.The NKF staging system is as follows:Normal: eGFR >90 with no kidney markersStage 1: eGFR >90 with kidney markers*Stage 2: eGFR 60- 89Stage 3: eGFR 30-59Stage 4: eGFR 15-29Stage 5: eGFR <15 (usually requir ing dialysis)*Markers include: Proteinuria, Hematuria, abnormal imaging-studies, or other blood or urine test abnormalities ID Date Data Source [id number] 08/23/2018 07:40:00 AM EDT [facility] System Name Value Range Interpretation Description Data Sup porting Code Source(s) Document(s ) Prothrombin 11.90 10.00 - Normal (applies Prothrombin [facility] time (PT) {seconds 13.60 to non-numeric time (PT) Health } seconds results) System Prothrombin Ab 1.04 0.70 - Normal (applies INR Result [facility] [Units/volume] {Ratio} 1.10 to non-numeric Health in Serum or Ratio results) System Plasma Normal = 0.7-1.1Therapeutic = 2.0-3.0Mec hanical Heart = 3.0-4.5 ID Date Data Source [id number] 08/22/2018 07:10:00 AM EDT [facility] System Name Value Range Interpretation Description Data Sup porting Code Source(s) Document(s ) Leukocytes 6.8 4.8 - Normal (applies WBC Count [facility] [#/volume] in {10^3_u 10.8 to non-numeric Health Unspecified L} 10^3 uL results) System specimen by Automated count Erythrocytes 2.73 4.70 - Below low normal RBC Count [facility] [#/volume] in {10^6_u 6.10 Health Blood by L} 10^6 uL System Automated count Hemoglobin 8.5 14.0 - Below low normal Hemoglobin [facility] [Mass/volume] in {gm/dL} 18.0 Health Blood gm/dL System Hematocrit 26.6 % 42.0 - Below low normal Hematocrit [facility] [Volume 52.0 % Health Fraction] of System Blood Erythrocyte mean 97.4 fl 81.0 - Normal (applies MCV [facility] corpuscular 99.0 fl to non-numeric Health volume [Entitic results) System volume] by Automated count Erythrocyte mean 31.1 pg 27.0 - Above high MCH [facility] corpuscular 31.0 pg normal Health hemoglobin System [Entitic mass] by Automated count Erythrocyte mean 32.0 30.0 - Normal (applies MCHC [facility] corpuscular {gm/dL} 35.0 to non-numeric Health hemoglobin gm/dL results) System concentration [Mass/volume] by Automated count Erythrocyte 18.5 % 11.5 - Above high RDW-CV [facility] distribution 14.5 % normal Health width [Entitic System volume] by Automated count Platelets 277 130 - Normal (applies Platelet Count [facility] [#/volume] in {10^3_u 400 to non-numeric Health Plasma by L} 10^3 uL results) System Automated count Platelet mean 10.5 fl 8.6 - Normal (applies MPV [facility] volume [Entitic 13.5 fl to non-numeric Health volume] in Blood results) System by Automated count Nucleated 1.6 0.0 - Above high NRBC % [facility] erythrocytes {/100_W 0.2 normal Health [#/volume] in BC} /100 System Body fluid WBC NRBC # 0.11 0.00 - Above high NRBC # [facility] {10^3_u 0.01 normal Health L} 10^3 uL System Neutrophils/100 52.3 % 55.0 - Below low normal Neutrophil % [facility] leukocytes in 75.0 % Health Blood by System Automated count Neutrophils 3.5 2.6 - Normal (applies Neutrophil # [facility] [#/volume] in {10^3_u 8.1 to non-numeric Health Body fluid L} 10^3 uL results) System Lymphocytes 32.7 % 15.0 - Normal (applies Lymphocyte % [facility] [#/volume] in 41.0 % to non-numeric Health Blood by results) System Automated count Lymphocyte # 2.2 1.0 - Normal (applies Lymphocyte # [facility] {10^3_u 4.8 to non-numeric Health L} 10^3 uL results) System Monocytes/100 10.7 % 2.0 - Above high Monocyte % [facility] leukocytes in 9.0 % normal Health Blood System Monocytes 0.7 0.1 - Normal (applies Monocyte # [facility] [#/volume] in {10^3_u 1.0 to non-numeric Health Blood by Manual L} 10^3 uL results) System count Eosinophils/100 1.5 % 0.0 - Normal (applies Eosinophil % [facility] leukocytes in 5.0 % to non-numeric Health Unspecified results) System specimen Eosinophils 0.10 0.00 - Normal (applies Eosinophil # [facility] [#/volume] in {10^3_u 0.50 to non-numeric Health Blood L} 10^3 uL results) System Basophils/100 0.9 % 0.0 - Normal (applies Basophil % [facility] leukocytes in 1.0 % to non-numeric Health Unspecified results) System specimen by Manual count Basophils 0.06 0.00 - Normal (applies Basophil # [facility] [#/volume] in {10^3_u 0.10 to non-numeric Health Blood by L} 10^3 uL results) System Automated count Immature 0.13 0.00 - Above high Immature [facility] Granulocytes # {10^3_u 0.09 normal Granulocytes # Health L} 10^3 uL System Immature 1.9 % 0.0 - Above high Immature [facility] Granulocytes % 0.8 % normal Granulocytes % Health System ID Date Data Source [id number] 08/22/2018 07:10:00 AM EDT [facility] Name Value Range Interpretation Description Data Sup porting Code Source(s) Document(s ) Sodium 137 135 - Normal (applies Sodium, Serum [facility] [Moles/volume] in mmol/L 145 to non-numeric Health Serum or Plasma mmol/L results) System Potassium 4.2 3.5 - Normal (applies Potassium, [facility] [Mass/volume] in mmol/L 5.0 to non-numeric Serum [facility] Serum or Plasma mmol/L results) System Chloride 102 101 - Normal (applies Chloride, [facility] [Moles/volume] in mmol/L 111 to non-numeric Serum [facility] Serum or Plasma mmol/L results) System Carbon dioxide, 28.6 21.0 - Normal (applies CO2, Serum [facility] total mmol/L 31.0 to non-numeric Health [Moles/volume] in mmol/L results) System Serum or Plasma Total Protein 5.3 6.4 - Below low normal Total Protein [facility] mg/dl 8.1 Health mg/dl System Glucose 101 65 - Normal (applies Glucose, [facility] [Mass/volume] in mg/dL 110 to non-numeric Serum [facility] Serum or Plasma mg/dL results) System Urea nitrogen 10 9 - 21 Normal (applies Blood Urea [facility] [Mass/volume] in mg/dl mg/dl to non-numeric Nitrogen, Health Serum or Plasma results) Serum System Creatinine 0.75 0.50 - Normal (applies Creatinine, [facility] [Mass/volume] in mg/dl 1.20 to non-numeric Serum [facility] Serum or Plasma mg/dl results) System Alkaline 115 42 - Normal (applies Alkaline [facility] phosphatase {IU/L} 121 to non-numeric Phosphatase, Health isoenzymes IU/L results) Serum System [Enzymatic activity/volume] in Serum or Plasma by Heat stability Bilirubin.total 2.6 0.2 - Above high Bilirubin, [facility] [Mass/volume] in mg/dl 1.2 normal Serum Total [facility] Serum or Plasma mg/dl System Direct Bilirubin 1.5 0.0 - Above high Direct [facility] mg/dl 0.4 normal Bilirubin [facility] mg/dl System Aspartate 83 10 - 42 Above high Aspartate [facility] aminotransferase {IU/L} IU/L normal Transaminase, Health [Enzymatic Serum System activity/volume] in Serum or Plasma by With P-5'-P Albumin 2.5 3.2 - Below low normal Albumin, [facility] [Mass/volume] in {gm/dl} 5.5 Serum [facility] Serum or Plasma gm/dl System I. Phosphorus 3.4 2.6 - Normal (applies I. Phosphorus [facility] mg/dl 4.9 to non-numeric [facility] mg/dl results) System Alanine 112 10 - 42 Above high Alanine [facility] aminotransferase {IU/L} IU/L normal Aminotransfer [facility] [Enzymatic ase, Serum System activity/volume] in Serum or Plasma Calcium 8.3 8.4 - Below low normal Calcium, [facility] [Mass/volume] in mg/dl 10.2 Total Serum [facility] Serum or Plasma mg/dl System A/G Ratio 0.89 Normal (applies A/G Ratio [facility] to non-numeric Health results) System Urate 5.9 2.3 - Normal (applies Uric Acid, [facility] [Mass/volume] in mg/dl 7.5 to non-numeric Serum Health Serum or Plasma mg/dl results) System Anion gap in Serum 6.40 Normal (applies Anion Gap [facility] or Plasma mmol/L to non-numeric Health results) System Glomerular > 90 Normal (applies GFR [facility] filtration to non-numeric Health rate/1.73 sq results) System M.predicted [Volume Rate/Area] in Serum or Plasma by Creatinine-based formula (CKD-EPI) eGFR will provide clinicians with a more accurate indicator of renal function then the serum creatinine. The eGFR is automa tically calculated from an empiric formula (endorsed by the [employer] ion) which incorporates age, sex, and race.Clinicians may notice surprisingly low GFR's with serum creatinine valueswithin normal range- particularly in elderly wo men (with low muscle mass).In the hospital setting, the eGFR should add an element of safety in drug dosing, in assessing the risk of IV contrast administration, and in assessing vascular risk.The NKF staging system is as follows:Normal: eGFR >90 with no kidney markersStage 1: eGFR >90 with kidney markers*Stage 2: eGFR 60- 89Stage 3: eGFR 30-59Stage 4: eGFR 15-29Stage 5: eGFR <15 (usually requir ing dialysis)*Markers include: Proteinuria, Hematuria, abnormal imaging-studies, or other blood or urine test abnormalities ID Date Data Source [id number] 08/21/2018 07:02:00 AM EDT [facility] System Name Value Range Interpretation Description Data Sup porting Code Source(s) Document(s ) Leukocytes 7.1 4.8 - Normal (applies WBC Count [facility] [#/volume] in {10^3_u 10.8 to non-numeric Health Unspecified L} 10^3 uL results) System specimen by Automated count Erythrocytes 2.73 4.70 - Below low normal RBC Count [facility] [#/volume] in {10^6_u 6.10 Health Blood by L} 10^6 uL System Automated count Hemoglobin 8.5 14.0 - Below low normal Hemoglobin [facility] [Mass/volume] in {gm/dL} 18.0 Health Blood gm/dL System Hematocrit 26.3 % 42.0 - Below low normal Hematocrit [facility] [Volume 52.0 % Health Fraction] of System Blood Erythrocyte mean 96.3 fl 81.0 - Normal (applies MCV [facility] corpuscular 99.0 fl to non-numeric Health volume [Entitic results) System volume] by Automated count Erythrocyte mean 31.1 pg 27.0 - Above high MCH [facility] corpuscular 31.0 pg normal Health hemoglobin System [Entitic mass] by Automated count Erythrocyte mean 32.3 30.0 - Normal (applies MCHC [facility] corpuscular {gm/dL} 35.0 to non-numeric Health hemoglobin gm/dL results) System concentration [Mass/volume] by Automated count Erythrocyte 18.9 % 11.5 - Above high RDW-CV [facility] distribution 14.5 % normal Health width [Entitic System volume] by Automated count Platelets 232 130 - Normal (applies Platelet Count [facility] [#/volume] in {10^3_u 400 to non-numeric Health Plasma by L} 10^3 uL results) System Automated count Platelet mean 10.6 fl 8.6 - Normal (applies MPV [facility] volume [Entitic 13.5 fl to non-numeric Health volume] in Blood results) System by Automated count Nucleated 2.1 0.0 - Above high NRBC % [facility] erythrocytes {/100_W 0.2 normal Health [#/volume] in BC} /100 System Body fluid WBC NRBC # 0.15 0.00 - Above high NRBC # [facility] {10^3_u 0.01 normal Health L} 10^3 uL System Neutrophils/100 50.6 % 55.0 - Below low normal Neutrophil % [facility] leukocytes in 75.0 % Health Blood by System Automated count Neutrophils 3.6 2.6 - Normal (applies Neutrophil # [facility] [#/volume] in {10^3_u 8.1 to non-numeric Health Body fluid L} 10^3 uL results) System Lymphocytes 34.1 % 15.0 - Normal (applies Lymphocyte % [facility] [#/volume] in 41.0 % to non-numeric Health Blood by results) System Automated count Lymphocyte # 2.4 1.0 - Normal (applies Lymphocyte # [facility] {10^3_u 4.8 to non-numeric Health L} 10^3 uL results) System Monocytes/100 10.9 % 2.0 - Above high Monocyte % [facility] leukocytes in 9.0 % normal Health Blood System Monocytes 0.8 0.1 - Normal (applies Monocyte # [facility] [#/volume] in {10^3_u 1.0 to non-numeric Health Blood by Manual L} 10^3 uL results) System count Eosinophils/100 2.0 % 0.0 - Normal (applies Eosinophil % [facility] leukocytes in 5.0 % to non-numeric Health Unspecified results) System specimen Eosinophils 0.14 0.00 - Normal (applies Eosinophil # [facility] [#/volume] in {10^3_u 0.50 to non-numeric Health Blood L} 10^3 uL results) System Basophils/100 0.7 % 0.0 - Normal (applies Basophil % [facility] leukocytes in 1.0 % to non-numeric Health Unspecified results) System specimen by Manual count Basophils 0.05 0.00 - Normal (applies Basophil # [facility] [#/volume] in {10^3_u 0.10 to non-numeric Health Blood by L} 10^3 uL results) System Automated count Immature 0.12 0.00 - Above high Immature [facility] Granulocytes # {10^3_u 0.09 normal Granulocytes # Health L} 10^3 uL System Immature 1.7 % 0.0 - Above high Immature [facility] Granulocytes % 0.8 % normal Granulocytes % Health System ID Date Data Source [id number] 08/21/2018 07:02:00 AM EDT [facility] Name Value Range Interpretation Description Data Sup porting Code Source(s) Document(s ) Sodium 135 135 - Normal (applies Sodium, Serum [facility] [Moles/volume] in mmol/L 145 to non-numeric Health Serum or Plasma mmol/L results) System Potassium 4.2 3.5 - Normal (applies Potassium, [facility] [Mass/volume] in mmol/L 5.0 to non-numeric Serum [facility] Serum or Plasma mmol/L results) System Chloride 100 101 - Below low normal Chloride, [facility] [Moles/volume] in mmol/L 111 Serum Health Serum or Plasma mmol/L System Carbon dioxide, 29.6 21.0 - Normal (applies CO2, Serum [facility] total mmol/L 31.0 to non-numeric Health [Moles/volume] in mmol/L results) System Serum or Plasma Total Protein 5.4 6.4 - Below low normal Total Protein [facility] mg/dl 8.1 Health mg/dl System Glucose 111 65 - Above high Glucose, [facility] [Mass/volume] in mg/dL 110 normal Serum [facility] Serum or Plasma mg/dL System Urea nitrogen 10 9 - 21 Normal (applies Blood Urea [facility] [Mass/volume] in mg/dl mg/dl to non-numeric Nitrogen, Health Serum or Plasma results) Serum System Creatinine 0.77 0.50 - Normal (applies Creatinine, [facility] [Mass/volume] in mg/dl 1.20 to non-numeric Serum [facility] Serum or Plasma mg/dl results) System Alkaline 113 42 - Normal (applies Alkaline [facility] phosphatase {IU/L} 121 to non-numeric Phosphatase, Health isoenzymes IU/L results) Serum System [Enzymatic activity/volume] in Serum or Plasma by Heat stability Bilirubin.total 3.1 0.2 - Above high Bilirubin, [facility] [Mass/volume] in mg/dl 1.2 normal Serum Total Health Serum or Plasma mg/dl System Direct Bilirubin 1.6 0.0 - Above high Direct [facility] mg/dl 0.4 normal Bilirubin Health mg/dl System Aspartate 93 10 - 42 Above high Aspartate [facility] aminotransferase {IU/L} IU/L normal Transaminase, Health [Enzymatic Serum System activity/volume] in Serum or Plasma by With P-5'-P Albumin 2.5 3.2 - Below low normal Albumin, [facility] [Mass/volume] in {gm/dl} 5.5 Serum [facility] Serum or Plasma gm/dl System I. Phosphorus 3.5 2.6 - Normal (applies I. Phosphorus [facility] mg/dl 4.9 to non-numeric Health mg/dl results) System Alanine 125 10 - 42 Above high Alanine [facility] aminotransferase {IU/L} IU/L normal Aminotransfer [facility] [Enzymatic ase, Serum System activity/volume] in Serum or Plasma Calcium 8.3 8.4 - Below low normal Calcium, [facility] [Mass/volume] in mg/dl 10.2 Total Serum Health Serum or Plasma mg/dl System A/G Ratio 0.86 Normal (applies A/G Ratio [facility] to non-numeric Health results) System Urate 5.5 2.3 - Normal (applies Uric Acid, [facility] [Mass/volume] in mg/dl 7.5 to non-numeric Serum Health Serum or Plasma mg/dl results) System Anion gap in Serum 5.40 Normal (applies Anion Gap [facility] or Plasma mmol/L to non-numeric Health results) System Glomerular > 90 Normal (applies GFR [facility] filtration to non-numeric Health rate/1.73 sq results) System M.predicted [Volume Rate/Area] in Serum or Plasma by Creatinine-based formula (CKD-EPI) eGFR will provide clinicians with a more accurate indicator of renal function then the serum creatinine. The eGFR is automa tically calculated from an empiric formula (endorsed by the National Kid[employer] ion) which incorporates age, sex, and race.Clinicians may notice surprisingly low GFR's with serum creatinine valueswithin normal range- particularly in elderly wo men (with low muscle mass).In the hospital setting, the eGFR should add an element of safety in drug dosing, in assessing the risk of IV contrast administration, and in assessing vascular risk.The NKF staging system is as follows:Normal: eGFR >90 with no kidney markersStage 1: eGFR >90 with kidney markers*Stage 2: eGFR 60- 89Stage 3: eGFR 30-59Stage 4: eGFR 15-29Stage 5: eGFR <15 (usually requir ing dialysis)*Markers include: Proteinuria, Hematuria, abnormal imaging-studies, or other blood or urine test abnormalities ID Date Data Source [id number] 08/20/2018 01:24:00 PM EDT [facility] EXAM: MR Abdomen Without Contrast EXAM DATE/TIME: 08/20/2018 1:57 PM CLINICAL HISTORY: 83 years old, male; Visit reas on: Elevated bilirubin; TECHNIQUE: Imaging protocol: MR of the abdomen without cont rast. 3D rendering: MIP reconstructed images were created and reviewed. COMPARISON: US Renal 08/18/2018 5:52 PM FINDINGS: Liver: No mass. Gallbladder and bile ducts: Th ere are multiple tiny gallstones present within a small amount of gallbladder slu dge, seen on images 20 through 26 of series 26. The common bile duct and the intrahe patic ducts are normal in size. No evidence of choledocholithiasis or acute cholecys titis. Pancreas: There are multiple small cysts present in the head, body and tail of the pancreas with the largest collection seen on image 58 of series 3 in the head of the pancreas. These could represent tiny pseudocysts if there is a history of chr onic pancreatitis, although neoplastic cysts are in the differential diagnosis. Most of the cysts are less than 5 mm in size although the largest measures approximat olu 9 x 9 mm in the head of the pancreas on image 16 of series 26. The main pancreat ic duct itself appears normal in size. . Spleen: Unremarkable. No splenomegaly. Adrenals: Unremarkable. No mass. Kidneys and ureters: A tiny 5 mm focus of high T2 si gnal is seen in the lower pole of the right kidney on image 22 of series 2, likely a small Bosniak type 1 simple cyst. Stomach and bowel: Unremarkable. Intraperitonea l space: No fluid collection. Arteries: No abdominal aortic aneurysm. Bones/joints : Mild degenerative discovertebral disease is present throughout the thoracolumbar spi ne. Soft tissues: See Kidneys And Ureters Finding. IMPRESSION: 1. There are multip le tiny gallstones present within a small amount of gallbladder sludge, seen on im ages 20 through 26 of series 26. The common bile duct and the intrahepatic ducts are normal in size. No evidence of choledocholithiasis or acute cholecystit is. 2. There are multiple small cysts present in the head, body and tail of the pancre as with the largest collection of cysts seen on image 58 of series 3 in the head of t he pancreas. These could represent tiny pseudocysts if there is a history of chr onic pancreatitis, although neoplastic cysts are in the differential diagnosis. Most of the cysts are less than 5 mm in size although the largest measures approximat olu 9 x 9 mm in the head of the pancreas on image 16 of series 26. The main pancreat ic duct itself appears normal in size. A follow-up MRI of the pancreas every 2 ye ars up to 10 years out is recommended for further evaluation. Reference: https://www.jacr.org/article/[email or web address]( [email or web address])[email or web address]/fulltext#sec7.2 . 3. A tiny 5 mm focus of high T2 signal is seen in the l ower pole of the right kidney on image 22 of series 2, likely a small Bosniak type 1 simple cyst. No further follow-up is recommended for this lesion. Reference: Managing Incidental Findings on Abdominal CT: White Paper of the ACR Incidental Findin gs Committee Ward Bentley MD, et al. JACR, January 2010. 4. 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 COMMENT: Consi stent with the [employer]'s Incidental Findings Committe e Report (J Am George Radiol 2009): Unless the patient's specific circumstances suggest otherwise, any liver lesion 0.5 cm or less, any cystic kidney lesion less than 1.0 c m, and/or any adrenal lesion 1.0 cm or less not otherwise characterized in this repo rt as possessing suspicious or indeterminate imaging features is/are highly likely to be benign and do not require follow-up imaging or biopsy. Name Value Range Interpretation Code Description Data Shelli rce(s) Supporting Document(s ) ID Date Data Source [id number] 08/20/2018 06:14:00 AM EDT [facility] Name Value Range Interpretation Description Data Sup porting Code Source(s) Document(s ) Leukocytes 7.3 4.8 - Normal (applies WBC Count [facility] [#/volume] in {10^3_u 10.8 to non-numeric Health Unspecified L} 10^3 uL results) System specimen by Automated count Erythrocytes 2.61 4.70 - Below low normal RBC Count [facility] [#/volume] in {10^6_u 6.10 Health Blood by L} 10^6 uL System Automated count Hemoglobin 8.1 14.0 - Below low normal Hemoglobin [facility] [Mass/volume] in {gm/dL} 18.0 Health Blood gm/dL System Hematocrit 24.1 % 42.0 - Below low normal Hematocrit [facility] [Volume 52.0 % Health Fraction] of System Blood Erythrocyte mean 92.3 fl 81.0 - Normal (applies MCV [facility] corpuscular 99.0 fl to non-numeric Health volume [Entitic results) System volume] by Automated count Erythrocyte mean 31.0 pg 27.0 - Normal (applies MCH [facility] corpuscular 31.0 pg to non-numeric Health hemoglobin results) System [Entitic mass] by Automated count Erythrocyte mean 33.6 30.0 - Normal (applies MCHC [facility] corpuscular {gm/dL} 35.0 to non-numeric Health hemoglobin gm/dL results) System concentration [Mass/volume] by Automated count Erythrocyte 18.9 % 11.5 - Above high RDW-CV [facility] distribution 14.5 % normal Health width [Entitic System volume] by Automated count Platelets 181 130 - Normal (applies Platelet Count [facility] [#/volume] in {10^3_u 400 to non-numeric Health Plasma by L} 10^3 uL results) System Automated count Platelet mean 11.0 fl 8.6 - Normal (applies MPV [facility] volume [Entitic 13.5 fl to non-numeric Health volume] in Blood results) System by Automated count Nucleated 1.7 0.0 - Above high NRBC % [facility] erythrocytes {/100_W 0.2 normal Health [#/volume] in BC} /100 System Body fluid WBC NRBC # 0.12 0.00 - Above high NRBC # [facility] {10^3_u 0.01 normal Health L} 10^3 uL System Neutrophils/100 51.0 % 55.0 - Below low normal Neutrophil % [place] [facility] leukocytes in 75.0 % Health Blood by System Automated count Neutrophils 3.7 2.6 - Normal (applies Neutrophil # [facility] [#/volume] in {10^3_u 8.1 to non-numeric Health Body fluid L} 10^3 uL results) System Lymphocytes 36.1 % 15.0 - Normal (applies Lymphocyte % [facility] [#/volume] in 41.0 % to non-numeric Health Blood by results) System Automated count Lymphocyte # 2.6 1.0 - Normal (applies Lymphocyte # [facility] {10^3_u 4.8 to non-numeric Health L} 10^3 uL results) System Monocytes/100 8.5 % 2.0 - Normal (applies Monocyte % [facility] leukocytes in 9.0 % to non-numeric Health Blood results) System Monocytes 0.6 0.1 - Normal (applies Monocyte # [facility] [#/volume] in {10^3_u 1.0 to non-numeric Health Blood by Manual L} 10^3 uL results) System count Eosinophils/100 2.2 % 0.0 - Normal (applies Eosinophil % [facility] leukocytes in 5.0 % to non-numeric Health Unspecified results) System specimen Eosinophils 0.16 0.00 - Normal (applies Eosinophil # [facility] [#/volume] in {10^3_u 0.50 to non-numeric Health Blood L} 10^3 uL results) System Basophils/100 0.7 % 0.0 - Normal (applies Basophil % [facility] leukocytes in 1.0 % to non-numeric Health Unspecified results) System specimen by Manual count Basophils 0.05 0.00 - Normal (applies Basophil # [facility] [#/volume] in {10^3_u 0.10 to non-numeric Health Blood by L} 10^3 uL results) System Automated count Immature 0.11 0.00 - Above high Immature [facility] Granulocytes # {10^3_u 0.09 normal Granulocytes # Health L} 10^3 uL System Immature 1.5 % 0.0 - Above high Immature [facility] Granulocytes % 0.8 % normal Granulocytes % Health System ID Date Data Source [id number] 08/20/2018 06:14:00 AM EDT [facility] Name Value Range Interpretation Description Data Sup porting Code Source(s) Document(s ) Sodium 134 135 - Below low normal Sodium, Serum [facility] [Moles/volume] in mmol/L 145 Health Serum or Plasma mmol/L System Potassium 3.8 3.5 - Normal (applies Potassium, [facility] [Mass/volume] in mmol/L 5.0 to non-numeric Serum Health Serum or Plasma mmol/L results) System Chloride 100 101 - Below low normal Chloride, [facility] [Moles/volume] in mmol/L 111 Serum Health Serum or Plasma mmol/L System Carbon dioxide, 27.4 21.0 - Normal (applies CO2, Serum [facility] total mmol/L 31.0 to non-numeric Health [Moles/volume] in mmol/L results) System Serum or Plasma Total Protein 4.8 6.4 - Below low normal Total Protein [facility] mg/dl 8.1 Health mg/dl System Glucose 116 65 - Above high Glucose, [facility] [Mass/volume] in mg/dL 110 normal Serum Health Serum or Plasma mg/dL System Urea nitrogen 12 9 - 21 Normal (applies Blood Urea [facility] [Mass/volume] in mg/dl mg/dl to non-numeric Nitrogen, Health Serum or Plasma results) Serum System Creatinine 0.79 0.50 - Normal (applies Creatinine, [facility] [Mass/volume] in mg/dl 1.20 to non-numeric Serum Health Serum or Plasma mg/dl results) System Alkaline 103 42 - Normal (applies Alkaline [facility] phosphatase {IU/L} 121 to non-numeric Phosphatase, Health isoenzymes IU/L results) Serum System [Enzymatic activity/volume] in Serum or Plasma by Heat stability Bilirubin.total 3.2 0.2 - Above high Bilirubin, [facility] [Mass/volume] in mg/dl 1.2 normal Serum Total Health Serum or Plasma mg/dl System Direct Bilirubin 1.9 0.0 - Above high Direct [facility] mg/dl 0.4 normal Bilirubin Health mg/dl System Aspartate 93 10 - 42 Above high Aspartate [facility] aminotransferase {IU/L} IU/L normal Transaminase, Health [Enzymatic Serum System activity/volume] in Serum or Plasma by With P-5'-P Albumin 2.3 3.2 - Below low normal Albumin, [facility] [Mass/volume] in {gm/dl} 5.5 Serum Health Serum or Plasma gm/dl System I. Phosphorus 3.5 2.6 - Normal (applies I. Phosphorus [facility] mg/dl 4.9 to non-numeric Health mg/dl results) System Alanine 122 10 - 42 Above high Alanine [facility] aminotransferase {IU/L} IU/L normal Aminotransfer Health [Enzymatic ase, Serum System activity/volume] in Serum or Plasma Calcium 7.8 8.4 - Below low normal Calcium, [facility] [Mass/volume] in mg/dl 10.2 Total Serum Health Serum or Plasma mg/dl System A/G Ratio 0.92 Normal (applies A/G Ratio [facility] to non-numeric Health results) System Urate 5.5 2.3 - Normal (applies Uric Acid, [facility] [Mass/volume] in mg/dl 7.5 to non-numeric Serum Health Serum or Plasma mg/dl results) System Anion gap in Serum 6.60 Normal (applies Anion Gap [facility] or Plasma mmol/L to non-numeric Health results) System Glomerular > 90 Normal (applies GFR [facility] filtration to non-numeric Health rate/1.73 sq results) System M.predicted [Volume Rate/Area] in Serum or Plasma by Creatinine-based formula (CKD-EPI) eGFR will provide clinicians with a more accurate indicator of renal function then the serum creatinine. The eGFR is automa tically calculated from an empiric formula (endorsed by the National Kidney [employer] ion) which incorporates age, sex, and race.Clinicians may notice surprisingly low GFR's with serum creatinine valueswithin normal range- particularly in elderly wo men (with low muscle mass).In the hospital setting, the eGFR should add an element of safety in drug dosing, in assessing the risk of IV contrast administration, and in assessing vascular risk.The NKF staging system is as follows:Normal: eGFR >90 with no kidney markersStage 1: eGFR >90 with kidney markers*Stage 2: eGFR 60- 89Stage 3: eGFR 30-59Stage 4: eGFR 15-29Stage 5: eGFR <15 (usually requir ing dialysis)*Markers include: Proteinuria, Hematuria, abnormal imaging-studies, or other blood or urine test abnormalities ID Date Data Source [id number] 08/19/2018 06:49:15 PM EDT [facility] System Name Value Range Interpretation Description Data Sup porting Code Source(s) Document(s ) Hemoglobin 8.5 14.0 - Below low normal Hemoglobin [facility] [Mass/volume] {gm/dL} 18.0 Health System in Blood gm/dL Hematocrit 25.3 % 42.0 - Below low normal Hematocrit [facility] [Volume 52.0 % Health System Fraction] of Blood Erythrocyte 91.0 fl 81.0 - Normal (applies MCV [facility] mean 99.0 fl to non-numeric Health System corpuscular results) volume [Entitic volume] by Automated count ID Date Data Source [id number] 08/19/2018 04:33:30 PM EDT [facility] Name Value Range Interpretation Description Data Sup porting Code Source(s) Document(s ) Blood, POSITIVE Normal (applies to Blood, Occult [facility] Occult non-numeric Feces Health System Feces results) ID Date Data Source [id number] 08/19/2018 10:43:59 AM EDT [facility] System Name Value Range Interpretation Description Data Sup porting Code Source(s) Document(s ) Osmolalit 363 50 - 1400 Normal (applies Osmolality, [facility] y, Spot {mOsm/kg} mOsm/kg to non-numeric Spot Urine Health System Urine results) ID Date Data Source [id number] 08/19/2018 10:43:59 AM EDT [facility] [facility] System Name Value Range Interpretation Description Data Sup porting Code Source(s) Document(s ) Chloride 43.0 Normal (applies Chloride Spot, [facility] Spot, Urine mmol/L to non-numeric Urine Health System results) Potassium, 26.0 Normal (applies Potassium, [facility] Spot Urine mmol/L to non-numeric Spot Urine Health System results) Sodium Spot, 43.0 Normal (applies Sodium Spot, [facility] Urine mmol/L to non-numeric Urine Health System results) Creatinine, 62.2 Normal (applies Creatinine, [facility] Spot Urine mg/dl to non-numeric Spot Urine Health System results) ID Date Data Source [id number] 08/19/2018 10:43:59 AM EDT [facility] Name Value Range Interpretation Description Data Sup porting Code Source(s) Document(s ) Osmolality of 277 280 - Below low normal Osmolality, [facility] Serum or {mOsm/kg 300 Serum Health Plasma } mOsm/kg System ID Date Data Source [id number] 08/19/2018 08:15:40 AM EDT [facility] Name Value Range Interpretation Description Data Sup porting Code Source(s) Document(s ) Color Yellow Yellow Normal (applies Color [facility] to non-numeric Health results) System Appearance of CLEAR Clear Normal (applies Urine [facility] Urine to non-numeric Appearance Health results) System Specific 1.010 1.001 - Normal (applies Urine Specific [facility] gravity of 1.035 to non-numeric [facility] Urine results) System pH.. 7.0 4.6 - 8.0 Normal (applies pH.. [facility] {pH_unit pH units to non-numeric Health s} results) System Glucose, UA NEG < 50 mg/dl Normal (applies Glucose, UA [facility] to non-numeric Health results) System Protein NEG < 30 mg/dl Normal (applies Protein [facility] [Mass/volume] to non-numeric Health in Serum or results) System Plasma Bilirubin NEG Negative Normal (applies Bilirubin [facility] Urine Sm to Lg to non-numeric Urine Health results) System Urobilinogen > =4.0 Normal (applies Urobilinogen [facility] [Mass/volume] to non-numeric UA Health in Urine results) System Reference Range: Negative or <=2.0 Ketones NEG <TR mg/dL Normal (applies Ketones UA [facility] [Mass/volume] in to non-numeric Health S ystem Urine results) Nitrate+Nitrite Negative Negative Normal (applies Nitrite [facility] [Mass/volume] in Neg/Pos to non-numeric Health S ystem Unspecified results) specimen Leukocyte NEG Negative Tr Normal (applies Leukocyte [facility] esterase to Lg to non-numeric Esterase Health System [Units/volume] in results) Concentration Urine Leukocytes < 1 /HPF 0 - 2 /HPF Normal (applies White Blood Cells [place] [facility] [#/volume] in to non-numeric Health Syst em Unspecified results) specimen by Automated count Urine Blood NEG Negative Sm Normal (applies Urine Blood [facility] to Lg to non-numeric Health System results) Red Blood Cells < 1 /HPF 0 - 1 /HPF Normal (applies Red Blood Cells [facility] to non-numeric Health System results) ID Date Data Source [id number] 08/19/2018 06:20:00 AM EDT [facility] System Name Value Range Interpretation Description Data Sup porting Code Source(s) Document(s ) Iron 157 ug/dL 35 - 140 Above high normal Iron, Serum [facility] [Mass/volu ug/dL Health System me] in Serum or Plasma ID Date Data Source [id number] 08/19/2018 06:20:00 AM EDT [facility] System Name Value Range Interpretation Description Data Sup porting Code Source(s) Document(s ) Transferrin 129.0 180.7 - Below low normal Transferrin, [facility] [Mass/volume] mg/dl 313.7 Serum [facility] in Serum or mg/dl [facility] Only System Plasma ID Date Data Source [id number] 08/19/2018 06:20:00 AM EDT [facility] System Name Value Range Interpretation Description Data Sup porting Code Source(s) Document(s ) Ferritin 1500.0 14.0 - Above high normal Ferritin, [facility] [Mass/volum ng/ml 235.0 Serum - [facility] e] in Serum ng/ml [facility] Only or Plasma ID Date Data Source [id number] 08/19/2018 06:20:00 AM EDT [facility] System Name Value Range Interpretation Description Data Sup porting Code Source(s) Document(s ) Folate 24.10 >5.8 Above high normal Folate, Serum [facility] [Mass/volu ng/ml ng/ml - [facility] me] in Only Serum or Plasma ID Date Data Source [id number] 08/19/2018 06:20:00 AM EDT [facility] Name Value Range Interpretation Description Data Sup porting Code Source(s) Document(s ) Cobalamin 784 143 - Above high normal Vitamin B12, [facility] (Vitamin pg/ml 716 Serum - [facility] B12) pg/ml [facility] Only [Mass/volume ] in Serum or Plasma ID Date Data Source [id number] 08/19/2018 06:20:00 AM EDT [facility] Name Value Range Interpretation Description Data Sup porting Code Source(s) Document(s ) Hepatitis B Non Reactive Normal (applies Hepatitis B [facility] Core Reference to non-numeric Core Antibody Health Antibody IgM Range: non results) IgM System reactive Hepatitis C 0.02 {Ratio} Normal (applies Hepatitis C [facility] Ratio to non-numeric Ratio Health results) System Reference Range: non reactive Hepatitis A Non Reactive nonrective Normal (applies Hepatitis A [facility] IgM Antibody to non-numeric IgM Antibody Health Sy stem results) Hepatitis B Non Reactive nonrective Normal (applies Hepatitis B [facility] Surface to non-numeric [facility] Antigen. results) Antigen. Hepatitis C non reactive Normal (applies Hepatitis C [facility] Viral Antibody Reference Range: to non-numeric Viral Hea lt System nonreactive results) Antibody ID Date Data Source [id number] 08/19/2018 06:20:00 AM EDT [facility] Name Value Range Interpretation Description Data Sup porting Code Source(s) Document(s ) Leukocytes 7.5 4.8 - Normal (applies WBC Count [facility] [#/volume] in {10^3_uL 10.8 to non-numeric Health Unspecified } 10^3 uL results) System specimen by Automated count Erythrocytes 2.56 4.70 - Below low normal RBC Count [facility] [#/volume] in {10^6_uL 6.10 Health Blood by } 10^6 uL System Automated count Hemoglobin 7.9 14.0 - Below lower panic Hemoglobin [facility] [Mass/volume] {gm/dL} 18.0 limits Health in Blood gm/dL System H&H DROPPEDResult Reporting|Telephone|RO CESAR GAINES RN| 08/19/2018 at 10:16 AMCalled to:Tech Name:[email or web address] by:ESTEFANY GAINES RN 08/19/2018 / 10:15 AM Hematocrit [Volume 22.4 % 42.0 - 52.0 % Below lower Hematocrit [facility] Fraction] of Blood panic limits System Result Reporting|Telephone|CONSTANCE VAZQUEZ RN| 08/19/2018 at 10:16 AMCalled to:Tech Name:KIRBYNikolairebekaheverette by:CONSTANCE GAINES RN 08/19/2018 / 10:15 AM Erythrocyte mean 30.9 pg 27.0 - Normal (applies MCH [facility] corpuscular 31.0 pg to non-numeric Health System hemoglobin results) [Entitic mass] by Automated count Erythrocyte mean 87.5 fl 81.0 - Normal (applies MCV [facility] corpuscular volume 99.0 fl to non-numeric Health System [Entitic volume] results) by Automated count Erythrocyte mean 35.3 30.0 - Above high MCHC [facility] corpuscular {gm/dL} 35.0 normal Health System hemoglobin gm/dL concentration [Mass/volume] by Automated count Erythrocyte 18.7 % 11.5 - Above high RDW-CV [facility] distribution width 14.5 % normal Health Syst em [Entitic volume] by Automated count Platelets 144 130 - 400 Normal (applies Platelet Count [facility] [#/volume] in {10^3_uL} 10^3 uL to non-numeric Health Syst em Plasma by results) Automated count Platelet mean 11.9 fl 8.6 - Normal (applies MPV [facility] volume [Entitic 13.5 fl to non-numeric Health Sy stem volume] in Blood results) by Automated count NRBC # 0.03 0.00 - Above high NRBC # [facility] {10^3_uL} 0.01 10^3 normal Health System uL Nucleated 0.4 0.0 - 0.2 Above high NRBC % [facility] erythrocytes {/100_WBC /100 WBC normal Health System [#/volume] in Body } fluid Neutrophils/100 54.2 % 55.0 - Below low normal Neutrophil % [place] [facility] leukocytes in 75.0 % Health System Blood by Automated count Lymphocytes 36.0 % 15.0 - Normal (applies Lymphocyte % [facility] [#/volume] in 41.0 % to non-numeric Health Syst em Blood by Automated results) count Neutrophils 4.1 2.6 - 8.1 Normal (applies Neutrophil # [facility] [#/volume] in Body {10^3_uL} 10^3 uL to non-numeric Health System fluid results) Lymphocyte # 2.7 1.0 - 4.8 Normal (applies Lymphocyte # [facility] {10^3_uL} 10^3 uL to non-numeric Health System results) Monocytes 0.5 0.1 - 1.0 Normal (applies Monocyte # [facility] [#/volume] in {10^3_uL} 10^3 uL to non-numeric Health Syst em Blood by Manual results) count Monocytes/100 6.9 % 2.0 - 9.0 Normal (applies Monocyte % [facility] leukocytes in % to non-numeric Health Syst em Blood results) Eosinophils/100 1.5 % 0.0 - 5.0 Normal (applies Eosinophil % [place] leukocytes in % to non-numeric Health Syst em Unspecified results) specimen Eosinophils 0.11 0.00 - Normal (applies Eosinophil # [facility] [#/volume] in {10^3_uL} 0.50 10^3 to non-numeric Health Syst em Blood uL results) Basophils/100 0.5 % 0.0 - 1.0 Normal (applies Basophil % [facility] leukocytes in % to non-numeric Health Syst em Unspecified results) specimen by Manual count Immature 0.07 0.00 - Normal (applies Immature [facility] Granulocytes # {10^3_uL} 0.09 10^3 to non-numeric Granulocytes # Healt h System uL results) Basophils 0.04 0.00 - Normal (applies Basophil # [facility] [#/volume] in {10^3_uL} 0.10 10^3 to non-numeric Health Syst em Blood by Automated uL results) count Immature 0.9 % 0.0 - 0.8 Above high Immature [facility] Granulocytes % % normal Granulocytes % Health Sys tem ID Date Data Source [id number] 08/19/2018 06:20:00 AM EDT [facility] Name Value Range Interpretation Description Data Sup porting Code Source(s) Document(s ) Sodium 132 135 - Below low normal Sodium, Serum [facility] [Moles/volume] in mmol/L 145 Health Serum or Plasma mmol/L System Potassium 3.7 3.5 - Normal (applies Potassium, [facility] [Mass/volume] in mmol/L 5.0 to non-numeric Serum Health Serum or Plasma mmol/L results) System Chloride 97 101 - Below low normal Chloride, [facility] [Moles/volume] in mmol/L 111 Serum Health Serum or Plasma mmol/L System Carbon dioxide, 27.7 21.0 - Normal (applies CO2, Serum [facility] total mmol/L 31.0 to non-numeric Health [Moles/volume] in mmol/L results) System Serum or Plasma Total Protein 4.9 6.4 - Below low normal Total Protein [place] [facility] mg/dl 8.1 Health mg/dl System Glucose 138 65 - Above high Glucose, [facility] [Mass/volume] in mg/dL 110 normal Serum Health Serum or Plasma mg/dL System Urea nitrogen 19 9 - 21 Normal (applies Blood Urea [facility] [Mass/volume] in mg/dl mg/dl to non-numeric Nitrogen, Health Serum or Plasma results) Serum System Creatinine 0.81 0.50 - Normal (applies Creatinine, [facility] [Mass/volume] in mg/dl 1.20 to non-numeric Serum Health Serum or Plasma mg/dl results) System Alkaline 101 42 - Normal (applies Alkaline [facility] phosphatase {IU/L} 121 to non-numeric Phosphatase, Health isoenzymes IU/L results) Serum System [Enzymatic activity/volume] in Serum or Plasma by Heat stability Bilirubin.total 4.4 0.2 - Above high Bilirubin, [facility] [Mass/volume] in mg/dl 1.2 normal Serum Total Health Serum or Plasma mg/dl System Direct Bilirubin 2.4 0.0 - Above high Direct [facility] mg/dl 0.4 normal Bilirubin Health mg/dl System Aspartate 113 10 - 42 Above high Aspartate [facility] aminotransferase {IU/L} IU/L normal Transaminase, Health [Enzymatic Serum System activity/volume] in Serum or Plasma by With P-5'-P Albumin 2.3 3.2 - Below low normal Albumin, [facility] [Mass/volume] in {gm/dl} 5.5 Serum Health Serum or Plasma gm/dl System I. Phosphorus 3.5 2.6 - Normal (applies I. Phosphorus [facility] mg/dl 4.9 to non-numeric Health mg/dl results) System Alanine 141 10 - 42 Above high Alanine [facility] aminotransferase {IU/L} IU/L normal Aminotransfer Health [Enzymatic ase, Serum System activity/volume] in Serum or Plasma Calcium 7.8 8.4 - Below low normal Calcium, [facility] [Mass/volume] in mg/dl 10.2 Total Serum Health Serum or Plasma mg/dl System A/G Ratio 0.88 Normal (applies A/G Ratio [facility] to non-numeric Health results) System Urate 5.4 2.3 - Normal (applies Uric Acid, [facility] [Mass/volume] in mg/dl 7.5 to non-numeric Serum Health Serum or Plasma mg/dl results) System Anion gap in Serum 7.30 Normal (applies Anion Gap [facility] or Plasma mmol/L to non-numeric Health results) System Glomerular > 90 Normal (applies GFR [facility] filtration to non-numeric Health rate/1.73 sq results) System M.predicted [Volume Rate/Area] in Serum or Plasma by Creatinine-based formula (CKD-EPI) eGFR will provide clinicians with a more accurate indicator of renal function then the serum creatinine. The eGFR is automa tically calculated from an empiric formula (endorsed by the National Kidney [employer] ion) which incorporates age, sex, and race.Clinicians may notice surprisingly low GFR's with serum creatinine valueswithin normal range- particularly in elderly wo men (with low muscle mass).In the hospital setting, the eGFR should add an element of safety in drug dosing, in assessing the risk of IV contrast administration, and in assessing vascular risk.The NKF staging system is as follows:Normal: eGFR >90 with no kidney markersStage 1: eGFR >90 with kidney markers*Stage 2: eGFR 60- 89Stage 3: eGFR 30-59Stage 4: eGFR 15-29Stage 5: eGFR <15 (usually requir ing dialysis)*Markers include: Proteinuria, Hematuria, abnormal imaging-studies, or other blood or urine test abnormalities ID Date Data Source [id number] 08/19/2018 06:20:00 AM EDT [facility] System Name Value Range Interpretation Description Data Sup porting Code Source(s) Document(s ) Prothrombin 12.30 10.00 - Normal (applies Prothrombin [facility] time (PT) {seconds 13.60 to non-numeric time (PT) Health } seconds results) System INR in Blood 1.08 0.70 - Normal (applies INR Result [facility] by Coagulation {Ratio} 1.10 to non-numeric Health assay Ratio results) System Normal = 0.7-1.1Therapeutic = 2.0-3.0Mec hanical Heart = 3.0-4.5 ID Date Data Source [id number] 08/18/2018 10:32[facility] Name Value Range Interpretation Description Data Sup porting Code Source(s) Document(s ) Acetaminophen < 10 10 - 30 Normal (applies Acetaminophen [facility] [Mass/volume] in ug/ml to non-numeric Level, Serum Healt h Serum or Plasma results) System REFERENCE RANGE: 10-30 Therapeutic >100 Toxic ID Date Data Source [id number] 08/18/2018 10:32:39 PM EDT [facility]ot alth System Name Value Range Interpretation Description Data Sup porting Code Source(s) Document(s ) Thyrotropin 2.889 0.450 - Normal (applies Thyroid [facility] [Mass/volume] {mIU/mL} 5.330 to non-numeric Stimulating Health in Serum or mIU/mL results) Hormone, System Plasma Serum ID Date Data Source [id number] 08/18/2018 09:35:00 PM EDT [facility] System Name Value Range Interpretation Description Data Sup porting Code Source(s) Document(s ) aPTT in Blood 34.2 25.1 - Normal (applies Activated [facility] by {Second 36.5 to non-numeric Partial Health Coagulation s} Seconds results) Thromboplastin System assay Time ID Date Data Source [id number] 08/18/2018 09:34:49 PM EDT [facility] System Name Value Range Interpretation Code Description Data Shelli rce(s) Supporting Document(s ) HbA1C 6.6 % 4.6 - 6.2 % Above high normal HbA1C [facility] System ID Date Data Source [id number] 08/18/2018 09:34:49 PM EDT [facility]ot [facility] System Name Value Range Interpretation Description Data Sup porting Code Source(s) Document(s ) Natriuretic 87.4 0.0 - Normal (applies B-Type [facility] peptide B pg/ml 100.0 to non-numeric Natriuetic Health [Mass/volume] pg/ml results) Peptide System in Serum or Plasma ID Date Data Source [id number] 08/18/2018 07:01:13 PM EDT [facility] System Name Value Range Interpretation Description Data Sup porting Code Source(s) Document(s ) Magnesium 1.5 1.5 - Normal (applies Magnesium, [facility] [Mass/volume {mEq/L} 2.2 to non-numeric Serum Health Syste m ] in Serum mEq/L results) or Plasma ID Date Data Source [id number] 08/18/2018 07:01:13 PM EDT [facility] System Name Value Range Interpretation Description Data Source(s ) Supporting Code Document(s ) Alcohol < 5 Normal (applies to Alcohol Ethyl, [facility] Ethyl, non-numeric Blood Health System Blood results) Reference Range: None Detected ID Date Data Source [id number] 08/18/2018 07:01:13 PM EDT [facility] System Name Value Range Interpretation Description Data Sup porting Code Source(s) Document(s ) Troponin I 0.02 0.00 - Normal (applies Troponin I [facility] Quantitative ng/ml 0.03 to non-numeric Quantitative Health ng/ml results) System Detection of a rise and/or fall of cardi ac troponin I above the cut-off of 0.03 ng/mL is consistent with myocardial infarction in the appropriate clinical setting. With the use of lower cut-offs, testing of se rial samples is required for diagnosis. ID Date Data Source [id number] 08/18/2018 07:01:13 PM EDT [facility] System Name Value Range Interpretation Description Data Sup porting Code Source(s) Document(s ) Sodium 130 135 - Below low normal Sodium, Serum [facility] [Moles/volume] in mmol/L 145 Health Serum or Plasma mmol/L System Chloride 94 101 - Below low normal Chloride, [facility] [Moles/volume] in mmol/L 111 Serum [facility] Serum or Plasma mmol/L System Potassium 4.3 3.5 - Normal (applies Potassium, [facility] [Mass/volume] in mmol/L 5.0 to non-numeric Serum Health Serum or Plasma mmol/L results) System Carbon dioxide, 28.9 21.0 - Normal (applies CO2, Serum [facility] total mmol/L 31.0 to non-numeric Health [Moles/volume] in mmol/L results) System Serum or Plasma Total Protein 5.7 6.4 - Below low normal Total Protein Gil melody mg/dl 8.1 Health mg/dl System Urea nitrogen 22 9 - 21 Above high Blood Urea [facility] [Mass/volume] in mg/dl mg/dl normal Nitrogen, Health Serum or Plasma Serum System Glucose 138 65 - Above high Glucose, [facility] [Mass/volume] in mg/dL 110 normal Serum [facility] Serum or Plasma mg/dL System Creatinine 0.90 0.50 - Normal (applies Creatinine, [facility] [Mass/volume] in mg/dl 1.20 to non-numeric Serum Health Serum or Plasma mg/dl results) System Alkaline 117 42 - Normal (applies Alkaline [facility] phosphatase {IU/L} 121 to non-numeric Phosphatase, Health isoenzymes IU/L results) Serum System [Enzymatic activity/volume] in Serum or Plasma by Heat stability Bilirubin.total 5.6 0.2 - Above high Bilirubin, [facility] [Mass/volume] in mg/dl 1.2 normal Serum Total Health Serum or Plasma mg/dl System Direct Bilirubin 2.9 0.0 - Above high Direct [facility] mg/dl 0.4 normal Bilirubin [facility] mg/dl System I. Phosphorus 3.5 2.6 - Normal (applies I. Phosphorus [facility] mg/dl 4.9 to non-numeric Health mg/dl results) System Albumin 2.7 3.2 - Below low normal Albumin, [facility] [Mass/volume] in {gm/dl} 5.5 Serum [facility] Serum or Plasma gm/dl System Aspartate 145 10 - 42 Above high Aspartate [facility] aminotransferase {IU/L} IU/L normal Transaminase, Health [Enzymatic Serum System activity/volume] in Serum or Plasma by With P-5'-P Calcium 8.5 8.4 - Normal (applies Calcium, [facility] [Mass/volume] in mg/dl 10.2 to non-numeric Total Serum [facility] Serum or Plasma mg/dl results) System Alanine 179 10 - 42 Above high Alanine [facility] aminotransferase {IU/L} IU/L normal Aminotransfer Health [Enzymatic ase, Serum System activity/volume] in Serum or Plasma Urate 5.7 2.3 - Normal (applies Uric Acid, [facility] [Mass/volume] in mg/dl 7.5 to non-numeric Serum Health Serum or Plasma mg/dl results) System Anion gap in Serum 7.10 Normal (applies Anion Gap Gil melody or Plasma mmol/L to non-numeric Health results) System A/G Ratio 0.90 Normal (applies A/G Ratio [facility] to non-numeric Health results) System Glomerular 81.00 Normal (applies GFR [facility] filtration to non-numeric Health rate/1.73 sq results) System M.predicted [Volume Rate/Area] in Serum or Plasma by Creatinine-based formula (CKD-EPI) eGFR will provide clinicians with a more accurate indicator of renal function then the serum creatinine. The eGFR is automa tically calculated from an empiric formula (endorsed by the [employer] ion) which incorporates age, sex, and race.Clinicians may notice surprisingly low GFR's with serum creatinine valueswithin normal range- particularly in elderly wo men (with low muscle mass).In the hospital setting, the eGFR should add an element of safety in drug dosing, in assessing the risk of IV contrast administration, and in assessing vascular risk.The NKF staging system is as follows:Normal: eGFR >90 with no kidney markersStage 1: eGFR >90 with kidney markers*Stage 2: eGFR 60- 89Stage 3: eGFR 30-59Stage 4: eGFR 15-29Stage 5: eGFR <15 (usually requir ing dialysis)*Markers include: Proteinuria, Hematuria, abnormal imaging-studies, or other blood or urine test abnormalities ID Date Data Source [id number] 08/18/2018 06:46:00 PM EDT [facility] Indication: Abnormal breath soundsPortab le view of the chest demonstrates no focal infiltrate or effusion. Heart size and mediastinum are within normal limits. Aorta is atherosclerotic. Degenerative change s of the thoracic spine is noted. Impression: No focal infiltrate. Name Value Range Interpretation Code Description Data Shelli rce(s) Supporting Document(s ) ID Date Data Source [id number] 08/18/2018 05:41:00 PM EDT [facility] Renal ultrasound was performed . The rig ht kidney measures 11 x 5.3 x 5.3 cm. the left kidney measures 12.3 x 5.3 x 4.6 cm . there is no hydronephrosis or renal calculus. The bladder is partially dist ended. There is no bladder wall thickening or bladder calculi. Right ureteral jet i s visualized.Impression: Unremarkable renal ultrasound. Name Value Range Interpretation Code Description Data [facility] rce(s) Supporting Document(s ) ID Date Data Source [id number] 08/18/2018 05:41:00 PM EDT [facility] Indication: Right upper quadrant Abdomin al pain.Right upper quadrant abdominal ultrasound was performed. The liver is homogeneous with the right lobe measuring 16.4 cm. The gallbladder is fluid-fille d. Sludge is noted in gallbladder with probable tiny stones.. CBD IS not visua lized due to bowel gas. There is no gallbladder wall thickening. Evaluation of the pancreas is suboptimal due to presence of bowel gas. The right kidney measures 11.7 cm. there is no right-sided hydronephrosis or renal calculi. The ab dominal aorta and IVC are normal in caliber.Impression: Sludge in the gallbl adder with probable tiny stones. Name Value Range Interpretation Code Description Data [facility] rce(s) Supporting Document(s ) ID Date Data Source [id number] 08/18/2018 05:15:00 PM EDT [facility] Name Value Range Interpretation Description Data Sup porting Code Source(s) Document(s ) Erythrocytes 3.17 4.70 - Below low normal RBC Count [facility] [#/volume] in {10^6_u 6.10 Health Blood by L} 10^6 uL System Automated count Leukocytes 8.3 4.8 - Normal (applies WBC Count [facility] [#/volume] in {10^3_u 10.8 to non-numeric Health Unspecified L} 10^3 uL results) System specimen by Automated count Erythrocyte mean 86.1 fl 81.0 - Normal (applies MCV [facility] corpuscular 99.0 fl to non-numeric Health volume [Entitic results) System volume] by Automated count Hematocrit 27.3 % 42.0 - Below low normal Hematocrit [facility] [Volume 52.0 % Health Fraction] of System Blood Hemoglobin 9.7 14.0 - Below low normal Hemoglobin [facility] [Mass/volume] in {gm/dL} 18.0 Health Blood gm/dL System Erythrocyte 18.3 % 11.5 - Above high RDW-CV [facility] distribution 14.5 % normal Health width [Entitic System volume] by Automated count Erythrocyte mean 35.5 30.0 - Above high MCHC [facility] corpuscular {gm/dL} 35.0 normal Health hemoglobin gm/dL System concentration [Mass/volume] by Automated count Erythrocyte mean 30.6 pg 27.0 - Normal (applies MCH [facility] corpuscular 31.0 pg to non-numeric Health hemoglobin results) System [Entitic mass] by Automated count Platelets 204 130 - Normal (applies Platelet Count [facility] [#/volume] in {10^3_u 400 to non-numeric Health Plasma by L} 10^3 uL results) System Automated count NRBC # 0.02 0.00 - Above high NRBC # [facility] {10^3_u 0.01 normal Health L} 10^3 uL System Nucleated 0.2 0.0 - Normal (applies NRBC % [facility] erythrocytes {/100_W 0.2 to non-numeric Health [#/volume] in BC} /100 results) System Body fluid WBC Neutrophils/100 65.7 % 55.0 - Normal (applies Neutrophil % Gil melody leukocytes in 75.0 % to non-numeric Health Blood by results) System Automated count Platelet mean 12.3 fl 8.6 - Normal (applies MPV [facility] volume [Entitic 13.5 fl to non-numeric Health volume] in Blood results) System by Automated count Neutrophils 5.5 2.6 - Normal (applies Neutrophil # [facility] [#/volume] in {10^3_u 8.1 to non-numeric Health Body fluid L} 10^3 uL results) System Lymphocytes 25.5 % 15.0 - Normal (applies Lymphocyte % [facility] [#/volume] in 41.0 % to non-numeric Health Blood by results) System Automated count Monocytes/100 6.9 % 2.0 - Normal (applies Monocyte % [facility] leukocytes in 9.0 % to non-numeric Health Blood results) System Lymphocyte # 2.1 1.0 - Normal (applies Lymphocyte # [facility] {10^3_u 4.8 to non-numeric Health L} 10^3 uL results) System Monocytes 0.6 0.1 - Normal (applies Monocyte # [facility] [#/volume] in {10^3_u 1.0 to non-numeric Health Blood by Manual L} 10^3 uL results) System count Eosinophils/100 0.6 % 0.0 - Normal (applies Eosinophil % Gil melody leukocytes in 5.0 % to non-numeric Health Unspecified results) System specimen Basophils/100 0.2 % 0.0 - Normal (applies Basophil % [facility] leukocytes in 1.0 % to non-numeric Health Unspecified results) System specimen by Manual count Eosinophils 0.05 0.00 - Normal (applies Eosinophil # [facility] [#/volume] in {10^3_u 0.50 to non-numeric Health Blood L} 10^3 uL results) System Basophils 0.02 0.00 - Normal (applies Basophil # [facility] [#/volume] in {10^3_u 0.10 to non-numeric Health Blood by L} 10^3 uL results) System Automated count Immature 0.09 0.00 - Normal (applies Immature [facility] Granulocytes # {10^3_u 0.09 to non-numeric Granulocytes # Healt h L} 10^3 uL results) System Immature 1.1 % 0.0 - Above high Immature [facility] Granulocytes % 0.8 % normal Granulocytes % Health System ID Date Data Source [id number] 08/18/2018 05:15:00 PM EDT [facility] System Name Value Range Interpretation Description Data Sup porting Code Source(s) Document(s ) Lipase Cancelled Lipase, Serum [facility] [Enzymatic hemolyzed Health activity/vol called floor System ume] in [facility] Serum or Plasma Specimen HEMOL Specimen [facility] Rejection Rejection Health Reason Reason System ID Date Data Source [id number] 08/18/2018 05:15:00 PM EDT [facility] System Name Value Range Interpretation Description Data Sup porting Code Source(s) Document(s ) Specimen HEMOL Specimen [facility] Rejection Rejection Health Reason Reason System Troponin I Cancelled Troponin I [facility] Quantitative hemolyzed Quantitative Health called System floor [facility] ID Date Data Source [id number] 08/18/2018 05:15:00 PM EDT [facility] Name Value Range Interpretation Description Data Sup porting Code Source(s) Document(s ) Potassium Cancelled Potassium, [facility] [Mass/volume] in hemolyzed Serum [facility] Serum or Plasma called [facility] Carbon dioxide, Cancelled CO2, Serum [facility] total hemolyzed Health [Moles/volume] in called System Serum or [facility] Sodium Cancelled Sodium, [facility] [Moles/volume] in hemolyzed Serum Health Serum or Plasma called [facility] Chloride Cancelled Chloride, [facility] [Moles/volume] in hemolyzed Serum [facility] Serum or Plasma called [facility] Glucose Cancelled Glucose, [facility] [Mass/volume] in hemolyzed Serum [facility] Serum or Plasma called [facility] Creatinine Cancelled Creatinine, [facility] [Mass/volume] in hemolyzed Serum [facility] Serum or Plasma called [facility] Total Protein Cancelled Total [facility] hemolyzed Protein [facility] called [facility] Urea nitrogen Cancelled Blood Urea [facility] [Mass/volume] in hemolyzed Nitrogen, Health Serum or Plasma called Serum System floor de [facility] Direct Bilirubin Cancelled Direct [facility] hemolyzed Bilirubin Health called System floor de [facility] Aspartate Cancelled Aspartate [facility] aminotransferase hemolyzed Transaminase Health [Enzymatic called , Serum System activity/volume] floor de in Serum or Plasma [place] by With P-5'-P Bilirubin.total Cancelled Bilirubin, [facility] [Mass/volume] in hemolyzed Serum Total Health Serum or Plasma called [facility] Alkaline Cancelled Alkaline [facility] phosphatase hemolyzed Phosphatase, Health isoenzymes called Serum System [Enzymatic floor de activity/volume] [place] in Serum or Plasma by Heat stability I. Phosphorus Cancelled I. [facility] hemolyzed Phosphorus Health called System floor de [facility] Albumin Cancelled Albumin, [facility] [Mass/volume] in hemolyzed Serum Health Serum or Plasma called [facility] Alanine Cancelled Alanine [facility] aminotransferase hemolyzed Aminotransfe Health [Enzymatic called rase, Serum System activity/volume] floor de in Serum or Plasma tiong Calcium Cancelled Calcium, [facility] [Mass/volume] in hemolyzed Total Serum Health Serum or Plasma called System floor de [facility] Anion gap in Serum Cancelled Anion Gap [facility] or Plasma hemolyzed Health called System floor de [facility] Urate Cancelled Uric Acid, [facility] [Mass/volume] in hemolyzed Serum Health Serum or Plasma called System floor de [place] Specimen Rejection HEMOL Specimen [facility] Reason Rejection Health Reason System Glomerular Cancelled GFR [facility] filtration hemolyzed Health rate/1.73 sq called System M.predicted floor de [Volume Rate/Area] [place] in Serum or Plasma by Creatinine-based formula (CKD-EPI) ID Date Data Source [id number] 08/18/2018 05:15:00 PM EDT [facility] Name Value Range Interpretation Description Data Sup porting Code Source(s) Document(s ) Alcohol Cancelled Alcohol [facility] Ethyl, Blood hemolyzed Ethyl, Blood Health called floor System de [place] Specimen HEMOL Specimen [facility] Rejection Rejection Health Reason Reason System ID Date Data Source [id number] 08/18/2018 05:15:00 PM EDT [facility] Name Value Range Interpretation Description Data Sup porting Code Source(s) Document(s ) Magnesium Cancelled Magnesium, [facility] [Mass/volume hemolyzed Serum Health ] in Serum called floor System or Plasma de [place] Specimen HEMOL Specimen [facility] Rejection Rejection Health Reason Reason System ID Date Data Source [id number] 04/13/2018 12:05:00 PM EST [facility] Name Value Range Interpretation Description Data Sup porting Code Source(s) Document(s ) Leukocytes 4.4-11.0 <content [facility] [#/volume] in styleCode="Bold [facility] Blood by ">White Blood Medical Automated count Cell Count Center </content>5.68 KCUMM<content styleCode="Ital ics"> (4.4-11.0 KCUMM)</content > Erythrocytes 4.4-5.9 <content [facility] [#/volume] in styleCode="Bold [facility] Blood by ">Red Blood Medical Automated count Cell Count Center </content>4.51 MCUMM<content styleCode="Ital ics"> (4.4-5.9 MCUMM)</content > Erythrocyte mean 80.0-100 <content [facility] corpuscular .0 styleCode="Bold Audrey volume [Entitic ">Mean Medical volume] by Corpuscular Center Automated count Volume </content>86.0 FL<content styleCode="Ital ics"> (80.0-100.0 FL)</content> Hematocrit 41.0-53. Below low normal <content [facility] [Volume 0 styleCode="Bold [facility] Fraction] of ">Hematocrit Medical Blood by </content>38.8 Center Automated count % L<content styleCode="Ital ics"> (41.0-53.0 %)</content> Hemoglobin 13.5-17. <content [facility] [Mass/volume] in 5 styleCode="Bold [facility] Blood ">Hemoglobin Medical </content>13.6 Center G/DL<content styleCode="Ital ics"> (13.5-17.5 G/DL)</content> Platelet mean 8.0-11.0 <content [facility] volume [Entitic styleCode="Bold Audrey volume] in Blood ">Mean Platelet Medical by Automated Volume Center count </content>9.5 FL<content styleCode="Ital ics"> (8.0-11.0 FL)</content> Erythrocyte mean 26.0-34. <content [facility] corpuscular 0 styleCode="Bold [facility] hemoglobin ">Mean Medical [Entitic mass] Corposcular Center by Automated Hemoglobin count </content>30.2 PG<content styleCode="Ital ics"> (26.0-34.0 PG)</content> Platelets 130-400 <content [facility] [#/volume] in styleCode="Bold Audrey Blood by ">Platelet Medical Automated count Count Center </content>201 KCUMM<content styleCode="Ital ics"> (130-400 KCUMM)</content > Erythrocyte mean 32.0-37. <content [facility] corpuscular 0 styleCode="Bold [facility] hemoglobin ">Mean Corpus. Medical concentration Hgb Center [Mass/volume] by Concentration Automated count (MCHC) </content>35.1 G/DL<content styleCode="Ital ics"> (32.0-37.0 G/DL)</content> Erythrocyte 11.5-14. Above high <content [facility] distribution 5 normal styleCode="Bold [facility] width [Ratio] by ">Red Cell Medical Automated count Distribution Center Width </content>15.9 % H<content styleCode="Ital ics"> (11.5-14.5 %)</content> UNK 0.0 <content [facility] styleCode="Bold [facility] ">Nucleated Red Medical Blood Cell Center Count </content>0.00 KCUMM<content styleCode="Ital ics"> (0.0 KCUMM)</content > UNK 0 <content [facility] styleCode="Bold [facility] ">Nucleated Red Medical Blood Cell Center </content>0.0 /100<content styleCode="Ital ics"> (0 /100)</content> ID Date Data Source GFR(Creatinine) 04/13/2018 12:05:00 PM [facility] Name Value Range Interpretation Code Description Data Shelli rce(s) Supporting Document(s ) UNK > 60 <content [facility] styleCode="Bold"> Medical Cent er EGFR </content>119 GFR<content styleCode="Italic s"> (> 60 GFR)</content> ID Date Data Source BMP 04/13/2018 12:05:00 PM [facility] Name Value Range Interpretation Description Data Sup porting Code Source(s) Document(s ) Chloride 98-107 Below low normal <content [facility] [Moles/volume] styleCode="Marcel Audrey in Serum or d">Chloride Medical Plasma </content>97 Center MEQ/L L<content styleCode="Lauren lics"> (98-107 MEQ/L)</conten t> Potassium 3.5-5.3 <content [facility] [Moles/volume] styleCode="Marcel Audrey in Serum or d">Potassium Medical Plasma </content>4.2 Center MEQ/L<content styleCode="Lauren lics"> (3.5-5.3 MEQ/L)</conten t> Sodium 137-145 Below low normal <content [facility] [Moles/volume] styleCode="Marcel Audrey in Serum or d">Sodium Medical Plasma </content>133 Center MEQ/L L<content styleCode="Lauren lics"> (137-145 MEQ/L)</conten t> Carbon 22-30 Below low normal <content [facility] dioxide, total styleCode="Marcel Audrey [Moles/volume] d">Carbon Medical in Serum or Dioxide Center Plasma </content>20 MEQ/L L<content styleCode="Lauren lics"> (22-30 MEQ/L)</conten t> UNK 9-20 <content [facility] styleCode="Marcel Jacksons d">BUN Medical </content>14 Center MG/DL<content styleCode="Lauren lics"> (9-20 MG/DL)</conten t> Calcium 8.4-10.2 <content [facility] [Mass/volume] styleCode="Marcel Jacksons in Serum or d">Calcium Medical Plasma </content>8.5 Center MG/DL<content styleCode="Lauren lics"> (8.4-10.2 MG/DL)</conten t> Creatinine 0.5-1.3 <content [facility] [Mass/volume] styleCode="Marcel Jacksons in Serum or d">Creatinine Medical Plasma </content>0.8 Center MG/DL<content styleCode="Lauren lics"> (0.5-1.3 MG/DL)</conten t> Glucose 74-106 Above high normal <content [facility] [Mass/volume] styleCode="Marcel Jacksons in Serum or d">Glucose Medical Plasma </content>169 Center MG/DL H<content styleCode="Lauren lics"> (74-106 MG/DL)</conten t> UNK > 60 <content [facility] styleCode="Marcel Audrey d">EGFR Medical </content>119 Center GFR<content styleCode="Lauren lics"> (> 60 GFR)</content> ID Date Data Source Urinalysis 04/13/2018 12:00:00 PM EST [facility] Name Value Range Interpretation Description Data Sup porting Code Source(s) Document(s ) Color of Urine YELLOW <content [facility] styleCode="Marcel Jacksons d">Color, Medical Urine Center </content>YELL OW <content styleCode="Lauren lics"> (YELLOW )</content> UNK NEGATIVE <content [facility] styleCode="[facility] d">Urine Medical Bilirubin Center </content>NEGA TIVE <content styleCode="Lauren lics"> (NEGATIVE )</content> Glucose NEGATIVE <content [facility] [Mass/volume] styleCode="Marcel Jacksons in Urine by d">Urine Medical Test strip Glucose Center </content>NEGA TIVE MG/DL<content styleCode="Lauren lics"> (NEGATIVE MG/DL)</conten t> UNK CLEAR <content [facility] styleCode="Marcel [facility]rey d">Urine Medical Clarity Center </content>WES R <content styleCode="Lauren lics"> (CLEAR )</content> Ketones NEGATIVE <content [facility] [Mass/volume] styleCode="Marcel Jacksons in Urine by d">Urine Medical Test strip Ketone Center </content>NEGA TIVE MG/DL<content styleCode="Lauren lics"> (NEGATIVE MG/DL)</conten t> Protein NEGATIVE <content [facility] [Mass/volume] styleCode="Marcel Jacksons in Urine by d">Urine Medical Test strip Protein Center </content>NEGA TIVE MG/DL<content styleCode="Lauren lics"> (NEGATIVE MG/DL)</conten t> Hemoglobin NEGATIVE <content [facility] [Presence] in styleCode="Marcel [place] Urine by Test d">Urine Blood Medical strip </content>SMAL Center L <content styleCode="Lauren lics"> (NEGATIVE )</content> pH of Urine by 4.5-8.0 <content [facility] Test strip styleCode="Marcel Audrey d">Urine pH Medical </content>6.0 Center NM<content styleCode="Lauren lics"> (4.5-8.0 NM)</content> Specific 1.015-1.02 <content [facility] gravity of 5 styleCode="Marcel Jacksons Urine by Test d">Urine Medical strip Specific Center [place] </content>1.02 0 NM<content styleCode="Lauren lics"> (1.015-1.025 NM)</content> Nitrite NEGATIVE <content [facility] [Presence] in styleCode="Marcel Jacksons Urine by Test d">Urine Medical strip Nitrite Center </content>NEGA TIVE <content styleCode="Lauren lics"> (NEGATIVE )</content> Leukocyte NEGATIVE <content [facility] esterase styleCode="Marcel Audrey [Presence] in d">Urine Medical Urine by Test Leukocyte Center strip </content>NEGA TIVE <content styleCode="Lauren lics"> (NEGATIVE )</content> UNK 0-3 <content [facility] styleCode="Marcel Audrey d">Urine White Medical Blood Cell Center </content>0-3 HPF<content styleCode="Lauren lics"> (0-3 HPF)</content> UNK 0-3 <content [facility] styleCode="Marcel Audrey d">Urine Red Medical Blood Cell Center </content>3-5 HPF<content styleCode="Lauren lics"> (0-3 HPF)</content> Urobilinogen 0.2-1.0 <content [facility] [Units/volume] styleCode="Marcel Audrey in Urine by d">Urine Medical Test strip Urobilinogen Center </content>0.2 MG/DL<content styleCode="Lauren lics"> (0.2-1.0 MG/DL)</conten t> UNK <content [facility] styleCode="Marcel Audrey d">Epithelial Medical Cell Center </content>0-2 LPF (Reference Range: not available)<br/ > UNK <content [facility] styleCode="Marcel Audrey d">Hyaline Medical Cast Center </content>1-3 LPF (Reference Range: not available)<br/ > UNK <content [facility] styleCode="Marcel Audrey d">Coarse Medical Granular Cast Center </content>3-5 LPF (Reference Range: not available)<br/ > Procedure Social History Code Duration Value Status Description Data Source(s ) Smoking 04/13/2018 Denies Ever completed Denies Ever Smoked [facility] 11:28:00 AM EST Smoked Medical C enter Smoking 04/13/2018 Denies Ever completed Denies Ever Smoked [facility] 10:23:00 AM EST Smoked Medical C enter Vital Signs ID Date Data Source UNK Name Value Range Interpretation Code Description Data Source(s) Body temperature 97.9 [degF] 0 - 200 Normal (applies to 97.9 [degF ] [facility] non-numeric [facility] System results) Body temperature 36.6 Naima 0 - 99.9 Normal (applies to 36.6 Naima [facility] non-numeric Health System results) Diastolic blood 73 mm[Hg] 0 - 999 Normal (applies to 73 mm[Hg] [facility] pressure non-numeric [facility] System results) Systolic blood 144 mm[Hg] 0 - 999 Above high normal 144 mm[Hg] [facility] Deprecated Oxygen 99 % 0 - 999 Normal (applies to 99 % [facility] saturation in non-numeric Health Sys tem Capillary blood results) by Oximetry Respiratory rate 18 0 - 999 Above high normal 18 [facility] Heart rate 59 0 - 999 Below low normal 59 [facility] Body mass index 34.7 kg/m2 34[facility]7 [facility] Body weight 104 kg 104 kg [facility]asured [facility] Body height 172 cm 172 cm [facility] Body surface area 2.1 m2 2.1 m2 [place] Derived from Health Syste m formula Body temperature 38.062805 38.267269 [facility] Respiratory rate 18 /min 18 /min [facility] Oxygen saturation 99 % 99 % [facility] Arterial blood [facility] by Pulse oximetry Heart rate 123 /min 123 /min [facility] Diastolic blood 79 mm[Hg] 79 mm[Hg] [facility] Systolic blood 131 mm[Hg] 131 mm[Hg] [facility] Body temperature 38.649081 38.210668 [facility] Respiratory rate 18 /min 18 /min [facility] Oxygen saturation 96 % 96 % [facility] Arterial blood [facility] by Pulse oximetry Heart rate 123 /min 123 /min [facility] Diastolic blood 79 mm[Hg] 79 mm[Hg] [facility] pressure [facility] Systolic blood 131 mm[Hg] 131 mm[Hg] [facility] Body temperature 37.812635 37.095534 [facility] Respiratory rate 19 /min 19 /min [facility] Oxygen saturation 96 % 96 % [facility] Arterial blood [facility] by Pulse oximetry Heart rate 111 /min 111 /min [facility] Diastolic blood 67 mm[Hg] 67 mm[Hg] [facility] Systolic blood 122 mm[Hg] 122 mm[Hg] [facility] Body temperature 36.186726 36.111101 [facility] Respiratory rate 18 /min 18 /min [facility] Oxygen saturation 100 % 100 % [facility] Arterial blood [facility] by Pulse oximetry Heart rate 98 /min 98 /min [facility] Diastolic blood 72 mm[Hg] 72 mm[Hg] [facility] Systolic blood 130 mm[Hg] 130 mm[Hg] [facility] Body temperature 36.967937 36.338842 [facility] Respiratory rate 19 /min 19 /min [facility] Oxygen saturation 98 % 98 % [facility] in [facility] by Pulse oximetry Heart rate 64 /min 64 /min [facility] Diastolic blood 73 mm[Hg] 73 mm[Hg] [facility] Systolic blood 146 mm[Hg] 146 mm[Hg] [facility] Patient Treatment Plan of Care Planned Activity Planned Date Details Description Data Source (s) fluticasone furoate 0.1 [facility] MG/ACTUAT / vilanterol 0.025 MG/ACTUAT Dry Powder Inhaler Metformin hydrochloride 500 [facility] MG Oral Tablet Albuterol 0.09 MG/ACTUAT Mon [facility] Metered Dose Inhaler bimatoprost 0.1 MG/ML [facility] Ophthalmic Solution [Lumigan] carvedilol 25 MG Oral Tablet [facility] [Coreg] quetiapine 50 MG Oral Tablet [facility]
[2020-01-03 10:25] LABS: EOS % 4.1 % (0-4.5); HEMATOCRIT 37.1 % (35.4-49); HEMOGLOBIN 12.1 GM/dL (11.7-16.9); LYMPH % 31.3 % (8-40); MCH 29.7 pg (25.7-33.7); MCHC 32.6 g/dl (32.0-35.9); MEAN CELL VOLUME 91.2 fl (80-96); MEAN PLT VOLUME 8.9 fl (7.5-11.1); MONO % 11.4 % (3.8-10.2); NEUT % 52.2 % (42.8-82.8); PLATELET COUNT 186 K/MM3 (134-434); RBC 4.07 M/mm3 (4.00-5.60); RDW 16.5 % (11.9-15.9); WHITE BLOOD COUNT 4.2 K/mm3 (4.0-10.0)
[2020-01-03 10:33] LABS: INR 1.2 (0.83-1.09); PROTHROMBIN TIME (PATIENT) 14.2 SEC (9.7-13.0)
[2020-01-03 10:36] LABS: ACTIVATED PTT 35.3 SECONDS (25.2-36.5)
[2020-01-03] MEDS ORDERED: LACTATED RINGERS SOLUTION 1000 ML INFUS.BAG IV ONE ×2 (10:38→11:04)
--- NOTE | 2020-01-03 10:43 | PDOC ---
Attending Attestation - Resident Resident Name: Manuel Bonilla - ED Attending Attestation I have performed the following: I have examined & evaluated the patient, The case was reviewed & discussed with the resident, I agree w/resident's findings & plan - HPI HPI: 01/03/20 10:38 84-year-old male with multiple medical problems including systolic CHF, atrial fibrillation not on anticoagulation given history of falls, chronic alcoholism complicated by chronic pancreatitis and recent admission for acute alcohol intoxication presents now sent by family brought in by ambulance with depressed mental status at home, found to be hypotensive in the field, here asleep but arousable and without any complaints. Review of systems is negative, denies any abdominal pain or vomiting or diarrhea or GI bleeding, admits alcohol. 01/03/20 10:44 collateral history from family - d/c from [place] 3d ago, drinking since then, vomited and had coughing fit this morning, prompting EMS call - Physicial Exam PE: 01/03/20 10:39 Blood pressure 80/40, heart rate normal, O2 sat within normal limits, afebrile. Patient is asleep but actually quite well-appearing, arousable to voice. Follows commands and answers questions appropriately but is only oriented to self No jaundice or pallor, dry mucosa Heart is regular, lungs are clear Abdomen is benign Nonfocal neurological exam Atraumatic exam - Critical Care Time Total Critical Care Time: 50 Critical Care Statement: The care of this patient involved high complexity decision making to prevent further life threatening deterioration of the patient's condition and/or to evaluate & treat vital organ system(s) failure or risk of failure. - Medical Decision Making 01/03/20 10:40 84-year-old male with generalized weakness/altered mental status, borderline blood pressure here but coherent and perfusing. Hypotensive, question secondary to sepsis versus cardiogenic etiology, rule out GI bleed, no associated tachycardia. No signs of endorgan hypoperfusion at this time, neurologically nonfocal exam. Similar prior presentations 2/2 acute alcohol intoxication/encephalopathy. Sepsis protocol initiated IV fluid resuscitation EKG, CT head Close monitoring, will need admission 01/03/20 12:15 no leukocytosis, Cr wnl, elevated lactate, trop equivocal but at baseline. cxr and ct head wnl. BP improving with iv fluids, ? hypovolemia. continue monitoring and admit Heart Score/ECG Review #1 ECG reviewed & interpreted by me at: 09:55 General ECG Interpretation: Sinus Rhythm (with APC noted), Normal Rate (88), Normal Intervals (qtc 476, LVH), No acute ischemic changes (septal q waves, TWI I/AVL) Discharge - Discharge Information Problems reviewed: Yes Clinical Impression/Diagnosis: Chronic alcoholism, Transient alteration of awareness, Hypovolemic shock - Follow up/Referral Referrals: Mauricio Patel [Primary Care Provider] - - Patient Discharge Instructions - Post Discharge Activity
[2020-01-03 10:50] LABS: ALBUMIN 2.6 g/dl (3.4-5.0); BILIRUBIN,TOTAL 0.4 mg/dL (0.2-1); BLOOD UREA NITROGEN 8.4 mg/dL (7-18); CALCIUM 8.6 mg/dL (8.5-10.1); CREATININE 1.1 mg/dL (0.55-1.3); POTASSIUM 4.2 mmol/L (3.5-5.1); TOT PROT 5.8 g/dl (6.4-8.2)
[2020-01-03 13:10] LABS: EPI CELLS >36 /uL (0-25.1); HYALINE CASTS 2 /uL (0-3.1); URINE APPEARANCE CLEAR; URINE BACTERIA 9 /uL (0-1359); URINE BILIRUBIN NEGATIVE (NEGATIVE); URINE COLOR ORANGE; URINE GLUCOSE (UA) NEGATIVE (NEGATIVE); URINE KETONE NEGATIVE (NEGATIVE); URINE LEUK ESTERASE NEGATIVE (NEGATIVE); URINE NITRITE NEGATIVE (NEGATIVE); URINE PROTEIN 1+ (NEGATIVE); URINE RBC 827 /uL (0-23.9); URINE UROBILINOGEN 0.2 mg/dL (0.2-1.0); URINE WBC 19 /uL (0-25.8)
[2020-01-03 13:14] LABS: COCAINE, UR NEGATIVE ng/ml (CUTOFF=300); OPIATES, URI NEGATIVE ng/ml (CUTOFF=300); PHENCYCLIDINE,URINE NEGATIVE ng/ml (CUTOFF=25); URINE BARBITURATES NEGATIVE ng/ml (CUTOFF=200); URINE BENZODIAZEPINES NEGATIVE ng/ml (CUTOFF=200)
[2020-01-03 13:18] LABS: METHADONE, UR NEGATIVE ng/ml (CUTOFF=300); URINE AMPHETAMINES NEGATIVE ng/ml (CUTOFF=500)
[2020-01-03 13:23] LABS: YEAST NON SEEN (NEGATIVE)
[2020-01-03] MEDS ORDERED: FOLIC ACID INJECTION - 1 MG, THIAMINE HCL 100 MG, MULTIVIT INJECTION ADULT 10 ML in SOD... IVPB ONE (13:30)
[2020-01-03] MEDS ORDERED: ALBUTEROL SO4 2.5/IPRATROPIUM 0.5 INH SOL 3 ML VIAL.NEB. NEB SCH (14:00)
[2020-01-03] MEDS: SODIUM CHLORIDE 1,000 ML IV SCH (14:21)
[2020-01-03] MEDS: ALBUTEROL SO4 HFA INHALER IH SCH ×2 (14:22→21:20)
[2020-01-03] MEDS ORDERED: THIAMINE HCL 200 MG/2 ML VIAL IVPB ONE (14:32)
--- NOTE | 2020-01-03 14:46 | HP ---
CHIEF COMPLAINT: AMS PCP: HISTORY OF PRESENT ILLNESS: Patient is a 84 y/o with a history of HTN, HFrEF, afib not on AC, COPD, DM2, asthma, SAH s/p evacuation 10/22, and alcohol abuse who presents for AMS. Patient was recently admitted for AMS 2/2 to chronic alcohol abuse with lactic acidosis, was treated and sent to [facility] for 3 weeks. History gathered from patients son. Patient has been home for 3 days and has been binge drinking. Son called EMS because he was altered. Unable to gather much history from patient. Only replies yes or no and is A&O x0. ER course was notable for: (1) (2) (3) Recent Travel: PAST MEDICAL HISTORY: HTN, HFrEF, afib not on AC, COPD, DM2, asthma, SAH s/p evacuation 10/22, and alcohol abuse PAST SURGICAL HISTORY: unable to obtain Social History: Smoking: denies Alcohol: active, unable to ask amount Drugs: denies Allergies No Known Allergies Allergy (Verified 01/03/20 09:39) HOME MEDICATIONS: Home Medications Medication Instructions Recorded Aspirin [ASA -] 81 mg PO DAILY tab.chew 06/07/19 Folic Acid - 1 mg PO DAILY tablet 06/07/19 Sacubitril/Valsartan [Entresto 97 1 tab PO BID 11/17/19 mg-103 mg Tablet] Sitagliptin Phosphate [Januvia] 100 mg PO DAILY 11/17/19 Furosemide 20 mg PO BID 12/04/19 Ergocalciferol (Vitamin D2) 50,000 unit PO WEEKLY 12/05/19 [Vitamin D2] Thiamine Mononitrate [Vitamin B-1] 200 mg PO DAILY #30 tablet 12/05/19 Albuterol 2.5/Ipratropium 0.5 1 amp NEB RTID amp 12/07/19 [Duoneb -] Carvedilol [Coreg -] 12.5 mg PO BID tablet 12/07/19 Cyanocobalamin [Vitamin B12 -] 1,000 mcg PO DAILY tablet 12/07/19 Multivitamins [Multivit ([facility] 1 tab PO DAILY tab 12/07/19 Formulary)] Naltrexone HCl [Revia -] 50 mg PO DAILY tablet 12/07/19 REVIEW OF SYSTEMS CONSTITUTIONAL: Absent: fever, chills, diaphoresis, generalized weakness, malaise, loss of appetite, weight change HEENT: Absent: rhinorrhea, nasal congestion, throat pain, throat swelling, difficulty swallowing, mouth swelling, ear pain, eye pain, visual changes CARDIOVASCULAR: Absent: chest pain, syncope, palpitations, irregular heart rate, lightheadedness, peripheral edema RESPIRATORY: Absent: cough, shortness of breath, dyspnea with exertion, orthopnea, wheezing, stridor, hemoptysis GASTROINTESTINAL: Absent: abdominal pain, abdominal distension, nausea, vomiting, diarrhea, constipation, melena, hematochezia GENITOURINARY: Absent: dysuria, frequency, urgency, hesitancy, hematuria, flank pain, genital pain MUSCULOSKELETAL: Absent: myalgia, arthralgia, joint swelling, back pain, neck pain SKIN: Absent: rash, itching, pallor HEMATOLOGIC/IMMUNOLOGIC: Absent: easy bleeding, easy bruising, lymphadenopathy, frequent infections ENDOCRINE: Absent: unexplained weight gain, unexplained weight loss, heat intolerance, cold intolerance NEUROLOGIC: Absent: headache, focal weakness or paresthesias, dizziness, unsteady gait, seizure, mental status changes, bladder or bowel incontinence PSYCHIATRIC: Absent: anxiety, depression, suicidal or homicidal ideation, hallucinations. PHYSICAL EXAMINATION Vital Signs Temperature 97.4 F L 01/03/20 09:54 Pulse Rate 82 01/03/20 12:48 Respiratory Rate 15 01/03/20 12:48 Blood Pressure 98/60 01/03/20 12:48 O2 Sat by Pulse Oximetry (%) 95 01/03/20 12:48 GENERAL: Awake, but sleepy HEAD: Normal with no signs of trauma. EYES: Pupils equal, round and reactive to light, extraocular movements intact, b/l cataracts EARS, NOSE, THROAT: Moist mucous membranes. LUNGS: Breath sounds equal, clear to auscultation bilaterally. No wheezes, and no crackles. No accessory muscle use. HEART: Regular rate and rhythm, normal S1 and S2 without murmur, rub or gallop. ABDOMEN: Soft, nontender, not distended, normoactive bowel sounds, no guarding, no rebound, no masses. MUSCULOSKELETAL: N No CVA tenderness. LOWER EXTREMITIES: No peripheral edema. SKIN: Warm, dry, normal turgor, no rashes or lesions noted, normal capillary refill. CBC, BMP 01/03/20 10:00 01/03/20 10:00 ASSESSMENT/PLAN: Patient is a 84 y/o with a history of HTN, HFrEF, afib not on AC, COPD, DM2, asthma, SAH s/p evacuation 10/22, and alcohol abuse who presents for AMS likely 2/2 to chronic alcohol abuse. #AMS likely 2/2 to chronic alcohol abuse - currently inebriated, likely component of [place] as well, elevated ammonia - banana bag x1, continue NS @ 125 - thiamine 500 IV once, continue 200 daily - f/u with Dr. Pathak - unlikely to withdrawl as patient was not drinking for 3 week while at [place] - f/u ABG, r/o hypoxic AMS - Head CT: no acute pathology - elevated lactic acid, consider lactic acidosis type B due to chronic liver dysfxn #HFrEF - Echo Feb: moderate global hypokinesis, EF: 40-45 - monitor fluid status closely - f/u with Dr. Jefferson - continue entresto, ASA, coreg - tropinemia likely 2/2 to demand, continue to trend #DM - continue SS, BGM DVT ppx: Lovenox FEN - NS @ 100 Dispo: monitor on tele Family Medical History Family History: As Documented Visit type - Medication Review Med list reviewed for High Risk Meds patients 65 and older: Yes - Emergency Visit Emergency Visit: Yes ED Registration Date: 01/03/20 Care time: The patient presented to the Emergency Department on the above date and was hospitalized for further evaluation of their emergent condition. - New Patient This patient is new to me today: Yes Date on this admission: 01/04/20 - Critical Care Critical Care patient: No ATTENDING PHYSICIAN STATEMENT I saw and evaluated the patient. I reviewed the resident's note and discussed the case with the resident. I agree with the resident's findings and plan as documented. SUBJECTIVE: OBJECTIVE: ASSESSMENT AND PLAN:
[2020-01-03 16:07] LABS: ARTERIAL BLD GAS O2 SATURATION 94.3 mmHg (95-98); ARTERIAL BLOOD GAS PO2 73.2 mmHg (80-100); ARTERIAL BLOOD GAS pH 7.365 (7.350-7.450)
[2020-01-03 16:11] LABS: ALLENS TEST POSITIVE
--- NOTE | 2020-01-03 16:20 | CON.NEURO ---
Consult - Past Medical History Cardio/Vascular: Yes: AFIB, CAD - Alcohol/Substance Use Hx Alcohol Use: Yes (2-3 glasses of wine/day) - Smoking History Smoking history: Former smoker Have you smoked in the past 12 months: No If you are a former smoker, when did you quit?: 1972 Home Medications - Allergies Allergies/Adverse Reactions: Allergies Allergy/AdvReac Type Severity Reaction Status Date / Time No Known Allergies Allergy Verified 01/03/20 09:39 - Home Medications Home Medications: Ambulatory Orders Aspirin [ASA -] 81 mg PO DAILY tab.chew 06/07/19 Folic Acid - 1 mg PO DAILY tablet 06/07/19 Sacubitril/Valsartan [Entresto 97 mg-103 mg Tablet] 1 tab PO BID 11/17/19 Sitagliptin Phosphate [Januvia] 100 mg PO DAILY 11/17/19 Furosemide 20 mg PO BID 12/04/19 Ergocalciferol (Vitamin D2) [Vitamin D2] 50,000 unit PO WEEKLY 12/05/19 Thiamine Mononitrate [Vitamin B-1] 200 mg PO DAILY #30 tablet 12/05/19 Albuterol 2.5/Ipratropium 0.5 [Duoneb -] 1 amp NEB RTID amp 12/07/19 Carvedilol [Coreg -] 12.5 mg PO BID tablet 12/07/19 Cyanocobalamin [Vitamin B12 -] 1,000 mcg PO DAILY tablet 12/07/19 Multivitamins [Multivit ([facility] Formulary)] 1 tab PO DAILY tab 12/07/19 Naltrexone HCl [Revia -] 50 mg PO DAILY tablet 12/07/19 Physical Exam-Neuro Vital Signs: Vital Signs Temperature 97.4 F L 01/03/20 09:54 Pulse Rate 72 01/03/20 15:00 Respiratory Rate 18 01/03/20 15:00 Blood Pressure 112/71 01/03/20 15:00 O2 Sat by Pulse Oximetry (%) 99 01/03/20 15:00 Labs: CBC, BMP 01/03/20 10:00 01/03/20 10:00 INR, PTT INR 1.20 (0.83-1.09) H 01/03/20 10:00 Assessment/Plan CC acute confusional state HPI 84 year old male history of htn, Atrial fibrillation no ton AC, copd, dm, asthma, SAH and history of alcohol abuse. Sugar has been brought to hospital for ams and he was sleepy and lethargic patient was broought to hospital. He was in hospital recently and he has been drinking again and his alcohol level was above 150 . no seizure, no fall and ct head is unremarkable. PAST MEDICAL HISTORY: HTN, HFrEF, afib not on AC, COPD, DM2, asthma, SAH s/p evacuation 10/22, and alcohol abuse PAST SURGICAL HISTORY: unable to obtain Social History: Smoking: denies Alcohol: active, unable to ask amount Drugs: denies Allergies No Known Allergies Allergy (Verified 01/03/20 09:39) HOME MEDICATIONS: Home Medications Medication Instructions Recorded Aspirin [ASA -] 81 mg PO DAILY tab.chew 06/07/19 Folic Acid - 1 mg PO DAILY tablet 06/07/19 Sacubitril/Valsartan [Entresto 97 1 tab PO BID 11/17/19 mg-103 mg Tablet] Sitagliptin Phosphate [Januvia] 100 mg PO DAILY 11/17/19 Furosemide 20 mg PO BID 12/04/19 Ergocalciferol (Vitamin D2) 50,000 unit PO WEEKLY 12/05/19 [Vitamin D2] Thiamine Mononitrate [Vitamin B-1] 200 mg PO DAILY #30 tablet 12/05/19 Albuterol 2.5/Ipratropium 0.5 1 amp NEB RTID amp 12/07/19 [Duoneb -] Carvedilol [Coreg -] 12.5 mg PO BID tablet 12/07/19 Cyanocobalamin [Vitamin B12 -] 1,000 mcg PO DAILY tablet 12/07/19 Multivitamins [Multivit ([facility] 1 tab PO DAILY tab 12/07/19 Formulary)] Naltrexone HCl [Revia -] 50 mg PO DAILY tablet 12/07/19 ROS,FH,SH reviewed in chart NEUROLOGICAL EXAMINATION Alert oriented x 2 ( dont know date), afebrile vss eomi, pupils reactive no face asymmetry moving all ext ct head is wnl Assessment/Plan 4 year old male history of htn, Atrial fibrillation no ton AC, copd, dm, asthma, SAH and history of alcohol abuse. he came with acute confusion and alcohl intoxication. Plan- continue supportive care, mvi, thiamine, folic acid, bannana bag - no evidence of sah or seizure watch for now Thanking you so much Brodie Pathak MD
--- NOTE | 2020-01-03 16:20 | PN ---
Teaching Attending Note Name of Resident: Yelena Calderon ATTENDING PHYSICIAN STATEMENT I saw and evaluated the patient. I reviewed the resident's note and discussed the case with the resident. I agree with the resident's findings and plan as documented. SUBJECTIVE: Patient seen and examined at bedside, admitted for Etoh intoxication and withdrawal, recently DC from [facility], at home patient is unsupervised and drinks kisha wine daily. VSS. OBJECTIVE: GA slightly tremulous, AAOx3, NAD HEENT NC/AT, dry MM, neck supple Chest CTAB, no crackles or wheezing CVS S1, S2+, RRR ABd obese, Soft, NT, BS+ Ext no LE edema Vital Signs (72 hours) 01/03/20 01/03/20 01/03/20 09:40 09:54 10:17 Temperature 97.4 F L 97.4 F L Pulse Rate 88 90 Pulse Rate [ 89 Apical] Respiratory 18 19 14 Rate Blood Pressure 73/37 L 74/00 L Blood Pressure 83/39 L [Right Arm] O2 Sat by Pulse 100 98 Oximetry (%) 01/03/20 01/03/20 01/03/20 10:34 10:54 11:59 Temperature Pulse Rate Pulse Rate [ 89 85 72 Apical] Respiratory 19 11 18 Rate Blood Pressure Blood Pressure 76/39 L 85/56 L 88/63 L [Right Arm] O2 Sat by Pulse 97 97 94 L Oximetry (%) 01/03/20 01/03/20 01/03/20 12:48 14:24 14:28 Temperature Pulse Rate Pulse Rate [ 82 77 72 Apical] Respiratory 15 24 H 19 Rate Blood Pressure Blood Pressure 98/60 147/86 [Right Arm] O2 Sat by Pulse 95 99 99 Oximetry (%) 01/03/20 01/03/20 01/03/20 15:00 18:00 21:00 Temperature 97.4 F L 97.6 F 97.8 F Pulse Rate 90 89 80 Pulse Rate [ 72 Apical] Respiratory 18 18 20 Rate Blood Pressure 141/74 144/85 180/90 H Blood Pressure 112/71 [Right Arm] O2 Sat by Pulse 99 99 99 Oximetry (%) Laboratory Results - last 24 hr 01/03/20 01/03/20 01/03/20 10:00 10:00 10:00 WBC RBC Hgb Hct MCV MCH MCHC RDW Plt Count MPV Absolute Neuts (auto) Neutrophils % Lymphocytes % Monocytes % Eosinophils % Basophils % Nucleated RBC % PT with INR 14.20 H INR 1.20 H PTT (Actin FS) 35.3 Anticoagulation Therapy Puncture Site Patient Temperature ABG pH ABG pCO2 ABG pO2 ABG HCO3 ABG O2 Sat (Measured) ABG O2 Content ABG Base Excess Brendon Test Patient On Oxygen O2 Delivery Device Oxygen Flow Rate Vent Mode Vent Rate Mechanical Rate PEEP Pressure Support Vent Sodium Potassium Chloride Carbon Dioxide Anion Gap BUN Creatinine Est GFR (CKD-EPI)AfAm Est GFR (CKD-EPI)NonAf POC Glucometer Random Glucose Lactic Acid Calcium Total Bilirubin AST ALT Alkaline Phosphatase Ammonia Troponin I 0.16 H Total Protein Albumin Urine Color Urine Appearance Urine pH Ur Specific [place] Urine Protein Urine Glucose (UA) Urine Ketones Urine Blood Urine Nitrite Urine Bilirubin Urine Urobilinogen Ur Leukocyte Esterase Urine WBC (Auto) Urine RBC (Auto) Urine Casts (Auto) U Epithel Cells (Auto) U Sm Round Cell (Auto) Urine Bacteria (Auto) Urine Yeast (Auto) Salicylates < 1.7 L Opiates Screen Methadone Screen Acetaminophen < 2.0 Barbiturate Screen Phencyclidine Screen Ur Amphetamines Screen MDMA (Ecstasy) Screen Benzodiazepines Screen Cocaine Screen U Marijuana (THC) Screen Alcohol, Quantitative 01/03/20 01/03/20 01/03/20 10:00 10:00 10:00 WBC 4.2 RBC 4.07 Hgb 12.1 Hct 37.1 MCV 91.2 MCH 29.7 MCHC 32.6 RDW 16.5 H Plt Count 186 MPV 8.9 D Absolute Neuts (auto) 2.2 Neutrophils % 52.2 D Lymphocytes % 31.3 D Monocytes % 11.4 H Eosinophils % 4.1 Basophils % 1.0 Nucleated RBC % 0 PT with INR INR PTT (Actin FS) Anticoagulation Therapy Puncture Site Patient Temperature ABG pH ABG pCO2 ABG pO2 ABG HCO3 ABG O2 Sat (Measured) ABG O2 Content ABG Base Excess Brendon Test Patient On Oxygen O2 Delivery Device Oxygen Flow Rate Vent Mode Vent Rate Mechanical Rate PEEP Pressure Support Vent Sodium 137 Potassium 4.2 Chloride 106 Carbon Dioxide 23 Anion Gap 8 BUN 8.4 Creatinine 1.1 Est GFR (CKD-EPI)AfAm 71.57 Est GFR (CKD-EPI)NonAf 61.75 POC Glucometer Random Glucose 151 H Lactic Acid 3.3 H* Calcium 8.6 Total Bilirubin 0.4 AST 26 ALT 19 Alkaline Phosphatase 61 Ammonia Troponin I Total Protein 5.8 L Albumin 2.6 L Urine Color Urine Appearance Urine pH Ur Specific [place] Urine Protein Urine Glucose (UA) Urine Ketones Urine Blood Urine Nitrite Urine Bilirubin Urine Urobilinogen Ur Leukocyte Esterase Urine WBC (Auto) Urine RBC (Auto) Urine Casts (Auto) U Epithel Cells (Auto) U Sm Round Cell (Auto) Urine Bacteria (Auto) Urine Yeast (Auto) Salicylates Opiates Screen Methadone Screen Acetaminophen Barbiturate Screen Phencyclidine Screen Ur Amphetamines Screen MDMA (Ecstasy) Screen Benzodiazepines Screen Cocaine Screen U Marijuana (THC) Screen Alcohol, Quantitative 150.8 H 01/03/20 01/03/20 01/03/20 10:00 12:00 12:45 WBC RBC Hgb Hct MCV MCH MCHC RDW Plt Count MPV Absolute Neuts (auto) Neutrophils % Lymphocytes % Monocytes % Eosinophils % Basophils % Nucleated RBC % PT with INR INR PTT (Actin FS) Anticoagulation Therapy Puncture Site Patient Temperature ABG pH ABG pCO2 ABG pO2 ABG HCO3 ABG O2 Sat (Measured) ABG O2 Content ABG Base Excess Brendon Test Patient On Oxygen O2 Delivery Device Oxygen Flow Rate Vent Mode Vent Rate Mechanical Rate PEEP Pressure Support Vent Sodium Potassium Chloride Carbon Dioxide Anion Gap BUN Creatinine Est GFR (CKD-EPI)AfAm Est GFR (CKD-EPI)NonAf POC Glucometer Random Glucose Lactic Acid 3.1 H* Calcium Total Bilirubin AST ALT Alkaline Phosphatase Ammonia 33.60 H Troponin I Total Protein Albumin Urine Color [place] Urine Appearance Clear Urine pH 7.0 Ur Specific [place] 1.004 L Urine Protein 1+ H Urine Glucose (UA) Negative Urine Ketones Negative Urine Blood 3+ H Urine Nitrite Negative Urine Bilirubin Negative Urine Urobilinogen 0.2 Ur Leukocyte Esterase Negative Urine WBC (Auto) 19 Urine RBC (Auto) 827 Urine Casts (Auto) 2 U Epithel Cells (Auto) >36 U Sm Round Cell (Auto) Non seen Urine Bacteria (Auto) 9 Urine Yeast (Auto) Non seen Salicylates Opiates Screen Methadone Screen Acetaminophen Barbiturate Screen Phencyclidine Screen Ur Amphetamines Screen MDMA (Ecstasy) Screen Benzodiazepines Screen Cocaine Screen U Marijuana (THC) Screen Alcohol, Quantitative 01/03/20 01/03/20 01/03/20 12:45 13:40 15:45 WBC RBC Hgb Hct MCV MCH MCHC RDW Plt Count MPV Absolute Neuts (auto) Neutrophils % Lymphocytes % Monocytes % Eosinophils % Basophils % Nucleated RBC % PT with INR INR PTT (Actin FS) Anticoagulation Therapy No Result Required. Puncture Site Left radial Patient Temperature No Result Required. ABG pH 7.365 ABG pCO2 41.60 ABG pO2 73.2 L ABG HCO3 23.2 ABG O2 Sat (Measured) 94.3 L ABG O2 Content No Result Required. ABG Base Excess -2.0 Brendon Test Positive Patient On Oxygen No O2 Delivery Device Room air Oxygen Flow Rate No Result Required. Vent Mode No Result Required. Vent Rate No Result Required. Mechanical Rate No Result Required. PEEP No Result Required. Pressure Support Vent No Result Required. Sodium Potassium Chloride Carbon Dioxide Anion Gap BUN Creatinine Est GFR (CKD-EPI)AfAm Est GFR (CKD-EPI)NonAf POC Glucometer Random Glucose Lactic Acid Calcium Total Bilirubin AST ALT Alkaline Phosphatase Ammonia Troponin I 0.16 H Total Protein Albumin Urine Color Urine Appearance Urine pH Ur Specific [place] Urine Protein Urine Glucose (UA) Urine Ketones Urine Blood Urine Nitrite Urine Bilirubin Urine Urobilinogen Ur Leukocyte Esterase Urine WBC (Auto) Urine RBC (Auto) Urine Casts (Auto) U Epithel Cells (Auto) U Sm Round Cell (Auto) Urine Bacteria (Auto) Urine Yeast (Auto) Salicylates Opiates Screen Negative Methadone Screen Negative Acetaminophen Barbiturate Screen Negative Phencyclidine Screen Negative Ur Amphetamines Screen Negative MDMA (Ecstasy) Screen Negative Benzodiazepines Screen Negative Cocaine Screen Negative U Marijuana (THC) Screen Negative Alcohol, Quantitative 01/03/20 01/03/20 17:16 18:11 WBC RBC Hgb Hct MCV MCH MCHC RDW Plt Count MPV Absolute Neuts (auto) Neutrophils % Lymphocytes % Monocytes % Eosinophils % Basophils % Nucleated RBC % PT with INR INR PTT (Actin FS) Anticoagulation Therapy Puncture Site Patient Temperature ABG pH ABG pCO2 ABG pO2 ABG HCO3 ABG O2 Sat (Measured) ABG O2 Content ABG Base Excess Brendon Test Patient On Oxygen O2 Delivery Device Oxygen Flow Rate Vent Mode Vent Rate Mechanical Rate PEEP Pressure Support Vent Sodium Potassium Chloride Carbon Dioxide Anion Gap BUN Creatinine Est GFR (CKD-EPI)AfAm Est GFR (CKD-EPI)NonAf POC Glucometer 99 Random Glucose Lactic Acid Calcium Total Bilirubin AST ALT Alkaline Phosphatase Ammonia Troponin I 0.16 H Total Protein Albumin Urine Color Urine Appearance Urine pH Ur Specific [place] Urine Protein Urine Glucose (UA) Urine Ketones Urine Blood Urine Nitrite Urine Bilirubin Urine Urobilinogen Ur Leukocyte Esterase Urine WBC (Auto) Urine RBC (Auto) Urine Casts (Auto) U Epithel Cells (Auto) U Sm Round Cell (Auto) Urine Bacteria (Auto) Urine Yeast (Auto) Salicylates Opiates Screen Methadone Screen Acetaminophen Barbiturate Screen Phencyclidine Screen Ur Amphetamines Screen MDMA (Ecstasy) Screen Benzodiazepines Screen Cocaine Screen U Marijuana (THC) Screen Alcohol, Quantitative Home Medications Medication Instructions Recorded Aspirin [ASA -] 81 mg PO DAILY tab.chew 06/07/19 Folic Acid - 1 mg PO DAILY tablet 06/07/19 Sacubitril/Valsartan [Entresto 97 1 tab PO BID 11/17/19 mg-103 mg Tablet] Sitagliptin Phosphate [Januvia] 100 mg PO DAILY 11/17/19 Furosemide 20 mg PO BID 12/04/19 Ergocalciferol (Vitamin D2) 50,000 unit PO WEEKLY 12/05/19 [Vitamin D2] Thiamine Mononitrate [Vitamin B-1] 200 mg PO DAILY #30 tablet 12/05/19 Albuterol 2.5/Ipratropium 0.5 1 amp NEB RTID amp 12/07/19 [Duoneb -] Carvedilol [Coreg -] 12.5 mg PO BID tablet 12/07/19 Cyanocobalamin [Vitamin B12 -] 1,000 mcg PO DAILY tablet 12/07/19 Multivitamins [Multivit ([facility] 1 tab PO DAILY tab 12/07/19 Formulary)] Naltrexone HCl [Revia -] 50 mg PO DAILY tablet 12/07/19 Current Medications Generic Name Dose Route Start Last Admin Trade Name Gennaroq PRN Reason Stop Dose Admin Albuterol Sulfate 2 puff 01/03/20 14:00 01/03/20 21:20 Ventolin Hfa Inhaler - IH 2 puff RTID PEREZ Administration Albuterol/Ipratropium 1 amp 01/03/20 14:00 Duoneb - NEB RTID PEREZ Aspirin 81 mg 01/04/20 10:00 Asa - PO DAILY PEREZ Carvedilol 12.5 mg 01/03/20 22:00 01/03/20 21:20 Coreg - PO 12.5 mg BID PEREZ Administration Enoxaparin Sodium 40 mg 01/04/20 10:00 Lovenox - SQ DAILY PEREZ Folic Acid 1 mg 01/04/20 10:00 Folic Acid - PO DAILY PEREZ Sodium Chloride 1,000 mls @ 100 mls/hr 01/03/20 13:15 01/03/20 14:21 Normal Saline - IV 01/04/20 23:14 100 mls/hr ASDIR PEREZ Administration Insulin Aspart 1 vial 01/03/20 16:30 01/03/20 17:30 Novolog Vial Sliding Scale - SQ Not Given TIDAC [facility] Protocol Multivitamins/Minerals/Vitamin C 1 tab 01/04/20 10:00 Tab-A-Vit - PO DAILY PEREZ Sacubitril/Valsartan 1 tab 01/03/20 22:00 01/03/20 21:20 Entresto 97 Mg-103 Mg Tablet PO 1 tab BID PEREZ Administration Thiamine HCl 200 mg 01/04/20 10:00 Vitamin B1 Injection - IVPB DAILY [facility] ASSESSMENT AND PLAN: 84 M Etoh intoxication and withdrawal HFrEF HTN HLD Obesity Etoh dependence Plan: Start Librium protocol for Etoh withdrawal High dose thiamine, cont. FA/MV daily, gentle hydration d/t CHF Trend lactate Cardiology evaluation for CHF/troponemia (chronic likely demand) Watch closely for withdrawal/DT's DVT ppx: SCD
[2020-01-03] MEDS: INSULIN SLIDING SCALE (NOVOLOG) 1 VIAL SQ SCH (17:30)
--- NOTE | 2020-01-03 20:11 | CON.CARD ---
Consult Consult Specialty:: Cardiology - History of Present Illness History of Present Illness: Patient is a 84 y/o with a history of HTN, HFrEF, afib not on AC, COPD, DM2, asthma, SAH s/p evacuation 10/22, and alcohol abuse who presents for AMS. Patient was recently admitted for AMS 2/2 to chronic alcohol abuse with lactic acidosis, was treated and sent to [facility] for 3 weeks. History gathered from patients son. Patient has been home for 3 days and has been binge drinking. Son called EMS because he was altered. Unable to gather much history from patient. Only replies yes or no and is A&O x0. - History Source History Provided By: Medical Record - Past Medical History Cardio/Vascular: Yes: AFIB, CAD - Alcohol/Substance Use Hx Alcohol Use: Yes (2-3 glasses of wine/day) - Smoking History Smoking history: Former smoker Have you smoked in the past 12 months: No If you are a former smoker, when did you quit?: 1972 Home Medications - Allergies Allergies/Adverse Reactions: Allergies Allergy/AdvReac Type Severity Reaction Status Date / Time No Known Allergies Allergy Verified 01/03/20 09:39 - Home Medications Home Medications: Ambulatory Orders Aspirin [ASA -] 81 mg PO DAILY tab.chew 06/07/19 Folic Acid - 1 mg PO DAILY tablet 06/07/19 Sacubitril/Valsartan [Entresto 97 mg-103 mg Tablet] 1 tab PO BID 11/17/19 Sitagliptin Phosphate [Januvia] 100 mg PO DAILY 11/17/19 Furosemide 20 mg PO BID 12/04/19 Ergocalciferol (Vitamin D2) [Vitamin D2] 50,000 unit PO WEEKLY 12/05/19 Thiamine Mononitrate [Vitamin B-1] 200 mg PO DAILY #30 tablet 12/05/19 Albuterol 2.5/Ipratropium 0.5 [Duoneb -] 1 amp NEB RTID amp 12/07/19 Carvedilol [Coreg -] 12.5 mg PO BID tablet 12/07/19 Cyanocobalamin [Vitamin B12 -] 1,000 mcg PO DAILY tablet 12/07/19 Multivitamins [Multivit ([facility] Formulary)] 1 tab PO DAILY tab 12/07/19 Naltrexone HCl [Revia -] 50 mg PO DAILY tablet 12/07/19 Review of Systems - Review of Systems Constitutional: reports: No Symptoms Eyes: reports: No Symptoms HENT: reports: No Symptoms Neck: reports: No Symptoms Cardiovascular: reports: No Symptoms Gastrointestinal: reports: No Symptoms Genitourinary: reports: No Symptoms Breasts: reports: No Symptoms Reported Musculoskeletal: reports: No Symptoms Integumentary: reports: No Symptoms Neurological: reports: No Symptoms Endocrine: reports: No Symptoms Hematology/Lymphatic: reports: No Symptoms Psychiatric: reports: No Symptoms Vital Signs: Vital Signs Temperature 97.6 F 01/03/20 18:00 Pulse Rate 89 01/03/20 18:00 Respiratory Rate 18 01/03/20 18:00 Blood Pressure 144/85 01/03/20 18:00 O2 Sat by Pulse Oximetry (%) 99 01/03/20 18:00 Constitutional: Yes: Well Nourished, No Distress, Calm Eyes: Yes: WNL, Conjunctiva Clear, EOM Intact HENT: Yes: WNL, Atraumatic, Normocephalic Neck: Yes: WNL, Supple, Trachea Midline Respiratory: Yes: WNL, Regular, CTA Bilaterally Gastrointestinal: Yes: WNL, Normal Bowel Sounds Renal/: Yes: WNL Cardiovascular: Yes: WNL, Regular Rate and Rhythm Musculoskeletal: Yes: WNL Extremities: Yes: WNL Integumentary: Yes: WNL Neurological: Yes: Alert ...Motor Strength: WNL Psychiatric: Yes: Alert - Other Data Labs, Other Data: CBC, BMP 01/03/20 10:00 01/03/20 10:00 INR, PTT INR 1.20 (0.83-1.09) H 01/03/20 10:00 Troponin, BNP 01/03/20 01/03/20 10:00 13:40 Troponin I 0.16 H 0.16 H Troponin, BNP 01/03/20 01/03/20 10:00 13:40 Troponin I 0.16 H 0.16 H Imaging - Results Chest X-ray: Image Reviewed (no i/e) Assessment/Plan 84 y/o with a history of HTN, HFrEF EF 40-45% moderate global HK, afib not on AC, COPD, DM2, asthma, SAH s/p evacuation 10/22, and alcohol abuse who presents for AMS due to acute ETOH intoxication. Plan; EKG Telemetry Detox DVT plx
[2020-01-03] MEDS ORDERED: PT OWN MED DRAWER 7, Y5N ONE (20:56)
[2020-01-03] MEDS: SACUBITRIL/VALSARTAN 97 MG-103 MG TABLET PO SCH (21:20)
[2020-01-03] MEDS: CARVEDILOL 12.5 MG TABLET (FP) PO SCH (21:20)
[2020-01-04] MEDS: INSULIN SLIDING SCALE (NOVOLOG) 1 VIAL SQ SCH ×3 (06:00→16:37)
[2020-01-04 07:31] LABS: EOS % 3.7 % (0-4.5); HEMATOCRIT 40.1 % (35.4-49); LYMPH % 35.4 % (8-40); MCH 29.6 pg (25.7-33.7); MCHC 32.5 g/dl (32.0-35.9); MEAN CELL VOLUME 91.3 fl (80-96); MONO % 8.9 % (3.8-10.2); PLATELET COUNT 214 K/MM3 (134-434); RBC 4.39 M/mm3 (4.00-5.60); WHITE BLOOD COUNT 4.6 K/mm3 (4.0-10.0)
[2020-01-04 08:00] LABS: ALBUMIN 2.6 g/dl (3.4-5.0); BILIRUBIN,TOTAL 0.6 mg/dL (0.2-1); BLOOD UREA NITROGEN 6.6 mg/dL (7-18); CALCIUM 8.7 mg/dL (8.5-10.1); CREATININE 0.9 mg/dL (0.55-1.3); MAGNESIUM 1.7 mg/dL (1.8-2.4); PHOSPHOROUS 3.2 mg/dL (2.5-4.9); POTASSIUM 4.5 mmol/L (3.5-5.1); TOT PROT 6.1 g/dl (6.4-8.2)
[2020-01-04] MEDS: ALBUTEROL SO4 HFA INHALER IH SCH ×3 (08:00→14:15)
--- NOTE | 2020-01-04 08:30 | PN ---
Progress Note (short form) - Note Progress Note: HPI 84 year old male history of htn, Atrial fibrillation no ton AC, copd, dm, asthma, SAH and history of alcohol abuse. Sugar has been brought to hospital for ams and he was sleepy and lethargic patient was broought to hospital. He was in hospital recently and he has been drinking again and his alcohol level was above 150 . no seizure, no fall and ct head is unremarkable. - feeling much better, wondernig why he is in hospital? NEUROLOGICAL EXAMINATION Alert oriented x3 , neck is supple eomi, pupils reactive no face asymmetry moving all ext ct head is wnl Assessment/Plan 4 year old male history of htn, Atrial fibrillation no ton AC, copd, dm, asthma, SAH and history of alcohol abuse. he came with acute confusion and alcohl intoxication. now back to normal self Plan- continue supportive care, mvi, thiamine, folic acid, bannana bag - pt and if can walk , can be discharged from neurological point of view Thanking you so much Brodie Pathak MD
[2020-01-04] MEDS ORDERED: PT OWN MED DRAWER 7, Y5N ONE (09:35)
[2020-01-04] MEDS ORDERED: MAGNESIUM 2GM/50ML STERILE WATER IVPB IVPB ONE ×2 (09:45→10:45)
[2020-01-04] MEDS ORDERED: ENOXAPARIN NA (PORCINE) 40 MG/0.4 ML DISP.SYRIN SQ SCH (10:00)
[2020-01-04] MEDS ORDERED: ASPIRIN 81 MG CHEWABLE TABLETS PO SCH (10:00)
[2020-01-04] MEDS ORDERED: MULTIVITAMINS (DAILY MVI) TABLET (FP) PO SCH (10:00)
[2020-01-04] MEDS ORDERED: THIAMINE HCL 200 MG/2 ML VIAL IVPB SCH (10:00)
[2020-01-04] MEDS ORDERED: THIAMINE HCL 100 MG TABLET (FP) PO SCH (10:00)
[2020-01-04] MEDS ORDERED: FOLIC ACID 1 MG TABLET (FP) PO SCH (10:00)
[2020-01-04] MEDS: CARVEDILOL 12.5 MG TABLET (FP) PO SCH (10:05)
[2020-01-04] MEDS: SACUBITRIL/VALSARTAN 97 MG-103 MG TABLET PO SCH (10:05)
--- NOTE | 2020-01-04 10:16 | PN ---
Progress Note, Physician History of Present Illness: Patient is a 84 y/o with a history of HTN, HFrEF, afib not on AC, COPD, DM2, asthma, SAH s/p evacuation 10/22, and alcohol abuse who presents for AMS. Patient was recently admitted for AMS 2/2 to chronic alcohol abuse with lactic acidosis, was treated and sent to [facility] for 3 weeks. History gathered from patients son. Patient has been home for 3 days and has been binge drinking. Son called EMS because he was altered. Unable to gather much history from patient. Only replies yes or no and is A&O x0. - Current Medication List Current Medications: Active Medications Albuterol Sulfate (Ventolin Hfa Inhaler -) 2 puff IH RTID [facility] Last Admin: 01/04/20 10:03 Dose: Not Given Documented by: Albuterol/Ipratropium (Duoneb -) 1 amp NEB RTID [facility] Aspirin (Asa -) 81 mg PO DAILY [facility] Last Admin: 01/04/20 10:05 Dose: 81 mg Documented by: Carvedilol (Coreg -) 12.5 mg PO BID [facility] Last Admin: 01/04/20 10:05 Dose: 12.5 mg Documented by: Enoxaparin Sodium (Lovenox -) 40 mg SQ DAILY [facility] Last Admin: 01/04/20 10:05 Dose: 40 mg Documented by: Folic Acid (Folic Acid -) 1 mg PO DAILY [facility] Last Admin: 01/04/20 10:05 Dose: 1 mg Documented by: Sodium Chloride (Normal Saline -) 1,000 mls @ 100 mls/hr IV ASDIR [facility] Stop: 01/04/20 23:14 Last Admin: 01/03/20 14:21 Dose: 100 mls/hr Documented by: Insulin Aspart (Novolog Vial Sliding Scale -) 1 vial SQ TIDAC [facility]; Protocol Last Admin: 01/04/20 06:00 Dose: Not Given Documented by: Magnesium Sulfate (Magnesium Sulf 2 G/50 Ml Bag) 1 gm IVPB ONCE ONE Stop: 01/04/20 10:46 Multivitamins/Minerals/Vitamin C (Tab-A-Vit -) 1 tab PO DAILY [facility] Last Admin: 01/04/20 10:05 Dose: 1 tab Documented by: Sacubitril/Valsartan (Entresto 97 Mg-103 Mg Tablet) 1 tab PO BID [facility] Last Admin: 01/04/20 10:05 Dose: 1 tab Documented by: Thiamine HCl (Vitamin B1 Injection -) 200 mg IVPB DAILY [facility] Last Admin: 01/04/20 10:06 Dose: 200 mg Documented by: - Objective Vital Signs: Vital Signs Temperature 98.7 F 01/04/20 01:58 Pulse Rate 89 01/04/20 01:58 Respiratory Rate 20 01/04/20 01:58 Blood Pressure 170/90 01/04/20 06:20 O2 Sat by Pulse Oximetry (%) 98 01/04/20 01:58 Eyes: Yes: WNL, Conjunctiva Clear, EOM Intact HENT: Yes: WNL, Atraumatic, Normocephalic Neck: Yes: WNL, Supple, Trachea Midline Cardiovascular: Yes: WNL, Regular Rate and Rhythm Respiratory: Yes: WNL, Regular, CTA Bilaterally Gastrointestinal: Yes: WNL, Normal Bowel Sounds Genitourinary: Yes: WNL Musculoskeletal: Yes: WNL Extremities: Yes: WNL Edema: No Integumentary: Yes: WNL Neurological: Yes: Alert Labs: CBC, BMP 01/04/20 07:00 01/04/20 07:00 INR, PTT INR 1.20 (0.83-1.09) H 01/03/20 10:00 Assessment/Plan 84 y/o with a history of HTN, HFrEF EF 40-45% moderate global HK, afib not on AC, COPD, DM2, asthma, SAH s/p evacuation 10/22, and alcohol abuse who presents for AMS due to acute ETOH intoxication. Plan; EKG Telemetry Detox DVT plx
[2020-01-04] MEDS ORDERED: MAGNESIUM 1GM/D5W 100ML - 100 ML IVPB IVPB ONE ×2 (11:00→12:00)
--- NOTE | 2020-01-04 11:01 | EKG ---
Test Reason : Blood Pressure : / mmHG Vent. Rate : 088 BPM Atrial Rate : 088 BPM P-R Int : 228 ms QRS Dur : 090 ms QT Int : 394 ms P-R-T Axes : 068 -13 027 degrees QTc Int : 476 ms SINUS RHYTHM WITH 1ST DEGREE A-V BLOCK WITH PREMATURE ATRIAL COMPLEXES MINIMAL VOLTAGE CRITERIA FOR LVH, MAY BE NORMAL VARIANT POSSIBLE ANTEROSEPTAL INFARCT (CITED ON OR BEFORE 04-DEC-2019) ABNORMAL ECG WHEN COMPARED WITH ECG OF 04-DEC-2019 16:40, QUESTIONABLE CHANGE IN INITIAL FORCES OF ANTEROSEPTAL LEADS Confirmed by MD Efra, Andi ([id number]) on 01/04/2020 11:01:09 AM Referred By: Confirmed By:Andi Kraus MD
--- NOTE | 2020-01-04 13:13 | PN ---
Teaching Attending Note Name of Resident: Lacy Davila ATTENDING PHYSICIAN STATEMENT I saw and evaluated the patient. I reviewed the resident's note and discussed the case with the resident. I agree with the resident's findings and plan as documented. SUBJECTIVE: Patient has no complaints. He says he does not know why he is in the hospital. OBJECTIVE: Vital Signs Period Temp Pulse Resp BP Sys/Romero Pulse Ox Last 24 Hr 97.4 F-98.8 F 72-96 18-24 112-180/71-109 96-99 HEART: S1S2, RRR LUNGS: Clear ABDOMEN: Obese, soft, non-tender, non-distended, normal BS EXTREMITIES: No edema Laboratory Results - last 24 hr 01/03/20 01/03/20 01/03/20 10:15 12:45 12:45 WBC RBC Hgb Hct MCV MCH MCHC RDW Plt Count MPV Absolute Neuts (auto) Neutrophils % Lymphocytes % Monocytes % Eosinophils % Basophils % Nucleated RBC % Anticoagulation Therapy Puncture Site Patient Temperature ABG pH ABG pCO2 ABG pO2 ABG HCO3 ABG O2 Sat (Measured) ABG O2 Content ABG Base Excess Brendon Test Patient On Oxygen O2 Delivery Device Oxygen Flow Rate Vent Mode Vent Rate Mechanical Rate PEEP Pressure Support Vent Sodium Potassium Chloride Carbon Dioxide Anion Gap BUN Creatinine Est GFR (CKD-EPI)AfAm Est GFR (CKD-EPI)NonAf POC Glucometer Random Glucose Calcium Phosphorus Magnesium Total Bilirubin AST ALT Alkaline Phosphatase Troponin I Total Protein Albumin U Sm Round Cell (Auto) Non seen Urine Yeast (Auto) Non seen Opiates Screen Negative Methadone Screen Negative Barbiturate Screen Negative Phencyclidine Screen Negative Ur Amphetamines Screen Negative MDMA (Ecstasy) Screen Negative Benzodiazepines Screen Negative Cocaine Screen Negative U Marijuana (THC) Screen Negative COVID-19 (MIKE) Not detected 01/03/20 01/03/20 01/03/20 13:40 15:45 17:16 WBC RBC Hgb Hct MCV MCH MCHC RDW Plt Count MPV Absolute Neuts (auto) Neutrophils % Lymphocytes % Monocytes % Eosinophils % Basophils % Nucleated RBC % Anticoagulation Therapy No Result Required. Puncture Site Left radial Patient Temperature No Result Required. ABG pH 7.365 ABG pCO2 41.60 ABG pO2 73.2 L ABG HCO3 23.2 ABG O2 Sat (Measured) 94.3 L ABG O2 Content No Result Required. ABG Base Excess -2.0 Brendon Test Positive Patient On Oxygen No O2 Delivery Device Room air Oxygen Flow Rate No Result Required. Vent Mode No Result Required. Vent Rate No Result Required. Mechanical Rate No Result Required. PEEP No Result Required. Pressure Support Vent No Result Required. Sodium Potassium Chloride Carbon Dioxide Anion Gap BUN Creatinine Est GFR (CKD-EPI)AfAm Est GFR (CKD-EPI)NonAf POC Glucometer 99 Random Glucose Calcium Phosphorus Magnesium Total Bilirubin AST ALT Alkaline Phosphatase Troponin I 0.16 H Total Protein Albumin U Sm Round Cell (Auto) Urine Yeast (Auto) Opiates Screen Methadone Screen Barbiturate Screen Phencyclidine Screen Ur Amphetamines Screen MDMA (Ecstasy) Screen Benzodiazepines Screen Cocaine Screen U Marijuana (THC) Screen COVID-19 (MIKE) 01/03/20 01/04/20 01/04/20 18:11 05:38 07:00 WBC 4.6 RBC 4.39 Hgb 13.0 Hct 40.1 MCV 91.3 MCH 29.6 MCHC 32.5 RDW 16.0 H Plt Count 214 MPV 9.0 Absolute Neuts (auto) 2.4 Neutrophils % 51.0 Lymphocytes % 35.4 Monocytes % 8.9 Eosinophils % 3.7 Basophils % 1.0 Nucleated RBC % 0 Anticoagulation Therapy Puncture Site Patient Temperature ABG pH ABG pCO2 ABG pO2 ABG HCO3 ABG O2 Sat (Measured) ABG O2 Content ABG Base Excess Brendon Test Patient On Oxygen O2 Delivery Device Oxygen Flow Rate Vent Mode Vent Rate Mechanical Rate PEEP Pressure Support Vent Sodium Potassium Chloride Carbon Dioxide Anion Gap BUN Creatinine Est GFR (CKD-EPI)AfAm Est GFR (CKD-EPI)NonAf POC Glucometer 101 Random Glucose Calcium Phosphorus Magnesium Total Bilirubin AST ALT Alkaline Phosphatase Troponin I 0.16 H Total Protein Albumin U Sm Round Cell (Auto) Urine Yeast (Auto) Opiates Screen Methadone Screen Barbiturate Screen Phencyclidine Screen Ur Amphetamines Screen MDMA (Ecstasy) Screen Benzodiazepines Screen Cocaine Screen U Marijuana (THC) Screen COVID-19 (MIKE) 01/04/20 07:00 WBC RBC Hgb Hct MCV MCH MCHC RDW Plt Count MPV Absolute Neuts (auto) Neutrophils % Lymphocytes % Monocytes % Eosinophils % Basophils % Nucleated RBC % Anticoagulation Therapy Puncture Site Patient Temperature ABG pH ABG pCO2 ABG pO2 ABG HCO3 ABG O2 Sat (Measured) ABG O2 Content ABG Base Excess Brendon Test Patient On Oxygen O2 Delivery Device Oxygen Flow Rate Vent Mode Vent Rate Mechanical Rate PEEP Pressure Support Vent Sodium 141 Potassium 4.5 Chloride 110 H Carbon Dioxide 25 Anion Gap 6 L BUN 6.6 L Creatinine 0.9 Est GFR (CKD-EPI)AfAm 91.22 Est GFR (CKD-EPI)NonAf 78.71 POC Glucometer Random Glucose 90 Calcium 8.7 Phosphorus 3.2 Magnesium 1.7 L Total Bilirubin 0.6 AST 22 ALT 18 Alkaline Phosphatase 67 Troponin I Total Protein 6.1 L Albumin 2.6 L U Sm Round Cell (Auto) Urine Yeast (Auto) Opiates Screen Methadone Screen Barbiturate Screen Phencyclidine Screen Ur Amphetamines Screen MDMA (Ecstasy) Screen Benzodiazepines Screen Cocaine Screen U Marijuana (THC) Screen COVID-19 (MIKE) Current Medications Generic Name Dose Route Start Last Admin Trade Name Freq PRN Reason Stop Dose Admin Albuterol Sulfate 2 puff 01/03/20 14:00 01/04/20 08:00 Ventolin Hfa Inhaler - IH 2 puff RTID PEREZ Administration Albuterol/Ipratropium 1 amp 01/03/20 14:00 Duoneb - NEB RTID PEREZ Aspirin 81 mg 01/04/20 10:00 01/04/20 10:05 Asa - PO 81 mg DAILY PEREZ Administration Carvedilol 12.5 mg 01/03/20 22:00 01/04/20 10:05 Coreg - PO 12.5 mg BID PEREZ Administration Enoxaparin Sodium 40 mg 01/04/20 10:00 01/04/20 10:05 Lovenox - SQ 40 mg DAILY PEREZ Administration Folic Acid 1 mg 01/04/20 10:00 01/04/20 10:05 Folic Acid - PO 1 mg DAILY PEREZ Administration Sodium Chloride 1,000 mls @ 100 mls/hr 01/03/20 13:15 01/03/20 14:21 Normal Saline - IV 01/04/20 23:14 100 mls/hr ASDIR PEREZ Administration Insulin Aspart 1 vial 01/03/20 16:30 01/04/20 11:48 Novolog Vial Sliding Scale - SQ Not Given TIDAC [facility] Protocol Multivitamins/Minerals/Vitamin C 1 tab 01/04/20 10:00 01/04/20 10:05 Tab-A-Vit - PO 1 tab DAILY PEREZ Administration Sacubitril/Valsartan 1 tab 01/03/20 22:00 01/04/20 10:05 Entresto 97 Mg-103 Mg Tablet PO 1 tab BID PEREZ Administration Thiamine HCl 200 mg 01/04/20 10:00 01/04/20 10:06 Vitamin B1 Injection - IVPB 200 mg DAILY PEREZ Administration ASSESSMENT AND PLAN: This is an 84 year old man with a history of HTN, atrial fib, chronic diastolic heart failure, asthma/COPD, type 2 DM, SAH and evacuation, alcohol abuse who presented to the ED with confusion. 1. Alcohol intoxication - Resolved 2. Hypomagnesemia - Supplement magnesium 3. Continuous alcohol dependence - Continue thiamine, multivitamin, folic acid 4. Disposition - Ok for discharge home
[2020-01-04 13:59] VITALS: BP 141/90; PULSE 92; TEMP 98.2
[2020-01-04] MEDS: SODIUM CHLORIDE 1,000 ML IV SCH (14:15)
--- NOTE | 2020-01-04 17:04 | DS ---
Physical Exam: SUBJECTIVE: Patient seen and examined at bedside, reports that he feels well and does not know why he is in the hospital. He reports he wants to go home. OBJECTIVE: Vital Signs Period Temp Pulse Resp BP Sys/Romero Pulse Ox Last 24 Hr 97.6 F-98.8 F 80-96 18-20 141-180/85-109 96-99 PHYSICAL EXAM GENERAL: AAOx3 HEAD: Normal with no signs of trauma. EYES: Pupils equal, round and reactive to light, extraocular movements intact, b/l cataracts EARS, NOSE, THROAT: Moist mucous membranes. LUNGS: Breath sounds equal, clear to auscultation bilaterally. No wheezes, and no crackles. No accessory muscle use. HEART: Regular rate and rhythm, normal S1 and S2 without murmur, rub or gallop. ABDOMEN: Soft, nontender, not distended, normoactive bowel sounds, no guarding, no rebound, no masses. MUSCULOSKELETAL: N No CVA tenderness. LOWER EXTREMITIES: No peripheral edema. SKIN: Warm, dry, normal turgor, no rashes or lesions noted, normal capillary refill. LABS Laboratory Results - last 24 hr 01/03/20 01/03/20 01/03/20 10:15 17:16 18:11 WBC RBC Hgb Hct MCV MCH MCHC RDW Plt Count MPV Absolute Neuts (auto) Neutrophils % Lymphocytes % Monocytes % Eosinophils % Basophils % Nucleated RBC % Sodium Potassium Chloride Carbon Dioxide Anion Gap BUN Creatinine Est GFR (CKD-EPI)AfAm Est GFR (CKD-EPI)NonAf POC Glucometer 99 Random Glucose Calcium Phosphorus Magnesium Total Bilirubin AST ALT Alkaline Phosphatase Troponin I 0.16 H Total Protein Albumin COVID-19 (MIKE) Not detected 01/04/20 01/04/20 01/04/20 05:38 07:00 07:00 WBC 4.6 RBC 4.39 Hgb 13.0 Hct 40.1 MCV 91.3 MCH 29.6 MCHC 32.5 RDW 16.0 H Plt Count 214 MPV 9.0 Absolute Neuts (auto) 2.4 Neutrophils % 51.0 Lymphocytes % 35.4 Monocytes % 8.9 Eosinophils % 3.7 Basophils % 1.0 Nucleated RBC % 0 Sodium 141 Potassium 4.5 Chloride 110 H Carbon Dioxide 25 Anion Gap 6 L BUN 6.6 L Creatinine 0.9 Est GFR (CKD-EPI)AfAm 91.22 Est GFR (CKD-EPI)NonAf 78.71 POC Glucometer 101 Random Glucose 90 Calcium 8.7 Phosphorus 3.2 Magnesium 1.7 L Total Bilirubin 0.6 AST 22 ALT 18 Alkaline Phosphatase 67 Troponin I Total Protein 6.1 L Albumin 2.6 L COVID-19 (MIKE) 01/04/20 16:35 WBC RBC Hgb Hct MCV MCH MCHC RDW Plt Count MPV Absolute Neuts (auto) Neutrophils % Lymphocytes % Monocytes % Eosinophils % Basophils % Nucleated RBC % Sodium Potassium Chloride Carbon Dioxide Anion Gap BUN Creatinine Est GFR (CKD-EPI)AfAm Est GFR (CKD-EPI)NonAf POC Glucometer 106 Random Glucose Calcium Phosphorus Magnesium Total Bilirubin AST ALT Alkaline Phosphatase Troponin I Total Protein Albumin COVID-19 (MIKE) HOSPITAL COURSE: Date of Admission:01/03/20 Patient is a 84 y/o with a history of HTN, HFrEF, afib not on AC, COPD, DM2, asthma, SAH s/p evacuation 10/22, and alcohol abuse who presents for AMS likely 2/2 to chronic alcohol abuse. In Er patient was AAOx1, intoxicated. Head CT revealed no acute pathology. Labs revealed elevated ammonia and etoh. Treated with banana bag, thiamine. Patient was seen and evaluated by neurology and cleared him for discharge HFrEF: Echo Feb: moderate global hypokinesis, EF: 40-45, stable at this time. tropinemia likely 2/2 to demand. Patient was also seen and evaluated by cardiology. Patient is clinically stable and sober, he wishes to go home. He was advised on the risk of chronic alcohol abuse. He was discharged with the following instructions/referrals. Date of Discharge: 01/04/20 Minutes to complete discharge: 36 Discharge Summary Problems reviewed: Yes Reason For Visit: ALCOHOLIC INTOXICATION,AMS,LACTIC ACIDOSIS Current Active Problems Chronic alcoholism (Chronic) Condition: Improved - Instructions Diet, Activity, Other Instructions: YOUR VISIT You came to the hospital because you were confused and drowsy. You were admitted to the hospital for care of these symptoms. It was found that your were intoxicated by alcohol and you had abnormal laboratory values. You were given IV fluids, needed vitamins and you are now stable and may return home. While here you were seen by a neurologist and a nut culler. Imaging of your head and chest during this visit did not show any concerning findings. Your urine analysis showed that you have some blood in your urine, please see your Primary Care Physician within 1 week and repeat urine analysis, if it still shows blood, you may need imaging to identify a source of your bleeding. MEDICATIONS Please continue to take your home medications as prescribed. You have no *NEW* medications. ADDITIONAL CARE Please make an appointment to see your primary care provider, Dr. Dr Ling within 1 week from today, for repeat urine analysis and to discuss this hospital stay. It is important that you avoid excessive alcohol consumption. Please use this visit to discuss better lifestyle choices. Please make an appointment to see a nut culler for further management of your heart conditions. A referral to Dr. Jefferson has been provided. ADDITIONAL INFORMATION Please call 911 or come directly to the emergency department if you experience recurrence of the symptoms that brought you to the hospital, unusual headache, vision change, shortness of breath, chest pain, numbness, tingling, loss of alertness/awareness, loss of function, unusual bleeding or any alarming s ymptoms. Referrals: Shilo Jefferson MD [Staff Physician] - Mauricio Patel [Primary Care Provider] - 1 Week (Hospital course, Repeat labs, Hematuria) Disposition: HOME - Home Medications Comprehensive Discharge Medication List: Ambulatory Orders Aspirin [ASA -] 81 mg PO DAILY tab.chew 06/07/19 Folic Acid - 1 mg PO DAILY tablet 06/07/19 Sacubitril/Valsartan [Entresto 97 mg-103 mg Tablet] 1 tab PO BID 11/17/19 Sitagliptin Phosphate [Januvia] 100 mg PO DAILY 11/17/19 Furosemide 20 mg PO BID 12/04/19 Ergocalciferol (Vitamin D2) [Vitamin D2] 50,000 unit PO WEEKLY 12/05/19 Thiamine Mononitrate [Vitamin B-1] 200 mg PO DAILY #30 tablet 12/05/19 Albuterol 2.5/Ipratropium 0.5 [Duoneb -] 1 amp NEB RTID amp 12/07/19 Carvedilol [Coreg -] 12.5 mg PO BID tablet 12/07/19 Cyanocobalamin [Vitamin B12 -] 1,000 mcg PO DAILY tablet 12/07/19 Multivitamins [Multivit ([facility] Formulary)] 1 tab PO DAILY tab 12/07/19 Naltrexone HCl [Revia -] 50 mg PO DAILY tablet 12/07/19 This patient is new to me today: No Emergency Visit: Yes ED Registration Date: 01/03/20 Care time: The patient presented to the Emergency Department on the above date and was hospitalized for further evaluation of their emergent condition. Critical Care patient: No - Discharge Referral Referred to [facility] No ATTENDING PHYSICIAN STATEMENT I saw and evaluated the patient. I reviewed the resident's note and discussed the case with the resident. I agree with the resident's findings and plan as documented. SUBJECTIVE: OBJECTIVE: ASSESSMENT AND PLAN:
== END 2020-01-04 19:23 | disposition home or self-care (01) | DRG 897 ==
LOC: JER 09:37 → JERBED 12:41 → J4S 15:20
PROVIDERS: ATTEND Internal Medicine
DX: F10.229 Alcohol dependence with intoxication, unspecified (principal); E87.2 Acidosis; K86.0 Alcohol-induced chronic pancreatitis; E51.2 Wernicke's encephalopathy; I50.22 Chronic systolic (congestive) heart failure; I11.0 Hypertensive heart disease with heart failure; I48.91 Unspecified atrial fibrillation; J44.9 Chronic obstructive pulmonary disease, unspecified; E11.9 Type 2 diabetes mellitus without complications; J45.909 Unspecified asthma, uncomplicated; I95.9 Hypotension, unspecified; E86.1 Hypovolemia; E83.42 Hypomagnesemia; E66.9 Obesity, unspecified; Z68.34 Body mass index [BMI] 34.0-34.9, adult; Z96.651 Presence of right artificial knee joint
CPT/HCPCS: 36415; 36600; 70450-TC; 71045-TC-FY; 80053; 80307; 81003; 82140; 82803; 82962; 83605; 83735; 84100; 84484; 85025; 85610; 85730; 87040; 87086; 93005; 93010; 99291; U0003

== ENCOUNTER 2020-02-17 09:29 | Inpatient (IN) | payer OTHER ==
[~2020-02-17 09:29] MED LIST: chlordiazePOXIDE HCL 25 MG CAPSULE PO SCH
[2020-02-17] MEDS ORDERED: ALBUTEROL SO4 HFA INHALER IH PRN (10:20)
[2020-02-17] MEDS ORDERED: ALBUTEROL SO4 HFA INHALER IH ONE (10:55)
[2020-02-17 12:23] LABS: VENOUS BASE EXCESS 2.5 mmol/L (-2-2); VENOUS O2 SATURATION 56.5 % (70-80); VENOUS PCO2 42.2 mmHg (38-52); VENOUS PH 7.428 (7.310-7.410)
[2020-02-17] MEDS ORDERED: LACTATED RINGERS SOLUTION 1000 ML INFUS.BAG IV ONE ×2 (12:40→18:29)
[2020-02-17 12:45] LABS: URINE APPEARANCE CLEAR; URINE BILIRUBIN NEGATIVE (NEGATIVE); URINE COLOR YELLOW; URINE GLUCOSE (UA) NEGATIVE (NEGATIVE); URINE KETONE NEGATIVE (NEGATIVE); URINE LEUK ESTERASE NEGATIVE (NEGATIVE); URINE NITRITE NEGATIVE (NEGATIVE); URINE PROTEIN NEGATIVE (NEGATIVE)
[2020-02-17 12:51] LABS: BASO % 1.3 % (0-2.0); HEMATOCRIT 40.6 % (35.4-49); HEMOGLOBIN 13.2 GM/dL (11.7-16.9); INR 1.09 (0.83-1.09); LYMPH % 24.6 % (8-40); MCH 30.2 pg (25.7-33.7); MCHC 32.6 g/dl (32.0-35.9); MEAN CELL VOLUME 92.6 fl (80-96); MEAN PLT VOLUME 8.9 fl (7.5-11.1); MONO % 10.3 % (3.8-10.2); NEUT % 53.8 % (42.8-82.8); PLATELET COUNT 340 K/MM3 (134-434); PROTHROMBIN TIME (PATIENT) 13.4 SEC (9.7-13.0); RBC 4.39 M/mm3 (4.00-5.60); RDW 19.6 % (11.9-15.9); WHITE BLOOD COUNT 6.5 K/mm3 (4.0-10.0)
[2020-02-17 13:10] LABS: POTASSIUM 3.7 mmol/L (3.5-5.1)
[2020-02-17 13:13] LABS: ALBUMIN 2.9 g/dl (3.4-5.0); CALCIUM 8.9 mg/dL (8.5-10.1)
[2020-02-17 13:16] LABS: CREATININE 0.7 mg/dL (0.55-1.3)
[2020-02-17 13:21] LABS: N-TERMINAL BNP 2672.2 pg/ml (5-450)
[2020-02-17 13:22] LABS: TOT PROT 7.3 g/dl (6.4-8.2)
[2020-02-17 13:28] LABS: BLOOD UREA NITROGEN 2.8 mg/dL (7-18)
[2020-02-17] MEDS ORDERED: FUROSEMIDE 40 MG/4 ML INJECTABLE VIAL IVPUSH ONE (13:38)
[2020-02-17] MEDS ORDERED: FUROSEMIDE 40 MG/4 ML INJECTABLE VIAL ONE (13:48)
[2020-02-17] MEDS ORDERED: chlordiazePOXIDE HCL 25 MG CAPSULE PO PRN (18:28)
[2020-02-17] MEDS ORDERED: FOLIC ACID 1 MG TABLET (FP) PO ONE (18:34)
[2020-02-17] MEDS ORDERED: FOLIC ACID 1 MG TABLET (FP) ONE (20:14)
[2020-02-17] MEDS ORDERED: PANTOPRAZOLE 40 MG TABLET ONE (20:14)
[2020-02-17] MEDS: PANTOPRAZOLE 40 MG TABLET PO SCH (20:19)
[2020-02-17] MEDS: CARVEDILOL 12.5 MG TABLET (FP) PO SCH (21:14)
[2020-02-17] MEDS: SACUBITRIL/VALSARTAN 97 MG-103 MG TABLET PO SCH (21:36)
[2020-02-17 23:55] LABS: MAGNESIUM 1.5 mg/dL (1.8-2.4)
[2020-02-18 00:05] VITALS: BMI 28.4
[2020-02-18] MEDS ORDERED: ALBUTEROL SO4 HFA INHALER IH ONE ×2 (00:28→14:47)
[2020-02-18] MEDS: chlordiazePOXIDE HCL 25 MG CAPSULE PO SCH ×4 (04:36→22:24)
[2020-02-18] MEDS ORDERED: MAGNESIUM SULF 50% (8.12 MEQ/2 ML-1 GM VIAL) IVPB ONE (09:15)
[2020-02-18] MEDS ORDERED: PT OWN MED DRAWER 7, Y5N ONE ×3 (09:24→22:31)
[2020-02-18] MEDS: MULTIVITAMINS (DAILY MVI) TABLET (FP) PO SCH (09:28)
[2020-02-18] MEDS: CARVEDILOL 12.5 MG TABLET (FP) PO SCH ×2 (09:28→22:24)
[2020-02-18] MEDS: THIAMINE HCL 100 MG TABLET (FP) PO SCH (09:28)
[2020-02-18] MEDS: PANTOPRAZOLE 40 MG TABLET PO SCH (09:28)
[2020-02-18] MEDS: SACUBITRIL/VALSARTAN 97 MG-103 MG TABLET PO SCH ×2 (09:29→22:33)
[2020-02-18] MEDS ORDERED: FUROSEMIDE 40 MG/4 ML INJECTABLE VIAL IVPUSH SCH (10:00)
[2020-02-18] MEDS ORDERED: ALBUTEROL SO4 0.083% IH SOL 2.5 MG/3 ML VIAL.NEB. NEB ONE (14:47)
[2020-02-18] MEDS: FUROSEMIDE 40 MG/4 ML INJECTABLE VIAL IVPUSH SCH (22:24)
[2020-02-19] MEDS ORDERED: chlordiazePOXIDE HCL 10 MG CAPSULE PO PRN
[2020-02-19] MEDS: chlordiazePOXIDE HCL 10 MG CAPSULE PO SCH ×4 (04:52→22:09)
[2020-02-19] MEDS ORDERED: PT OWN MED DRAWER 7, Y5N ONE ×2 (10:16→21:45)
[2020-02-19] MEDS: FUROSEMIDE 40 MG/4 ML INJECTABLE VIAL IVPUSH SCH ×2 (10:19→22:10)
[2020-02-19] MEDS: CARVEDILOL 12.5 MG TABLET (FP) PO SCH ×2 (10:20→22:09)
[2020-02-19] MEDS: PANTOPRAZOLE 40 MG TABLET PO SCH (10:20)
[2020-02-19] MEDS: ENOXAPARIN NA (PORCINE) 40 MG/0.4 ML DISP.SYRIN SQ SCH (10:20)
[2020-02-19] MEDS: MULTIVITAMINS (DAILY MVI) TABLET (FP) PO SCH (10:20)
[2020-02-19] MEDS: THIAMINE HCL 100 MG TABLET (FP) PO SCH (10:21)
[2020-02-19] MEDS: SACUBITRIL/VALSARTAN 97 MG-103 MG TABLET PO SCH ×2 (10:21→22:09)
[2020-02-19] MEDS: ASPIRIN COATED 81 MG TABLET.EC PO SCH (10:21)
[2020-02-19] MEDS ORDERED: ALBUTEROL SO4 HFA INHALER IH PRN (18:47)
[2020-02-20] MEDS: chlordiazePOXIDE HCL 10 MG CAPSULE PO SCH ×2 (06:05→16:50)
[2020-02-20] MEDS ORDERED: FUROSEMIDE 40 MG/4 ML INJECTABLE VIAL IVPUSH SCH (06:15)
[2020-02-20 07:25] LABS: POTASSIUM 3.8 mmol/L (3.5-5.1)
[2020-02-20 07:29] LABS: CALCIUM 7.8 mg/dL (8.5-10.1); MAGNESIUM 1.5 mg/dL (1.8-2.4)
[2020-02-20 07:32] LABS: PHOSPHOROUS 3.5 mg/dL (2.5-4.9)
[2020-02-20 07:33] LABS: CREATININE 1.1 mg/dL (0.55-1.3)
[2020-02-20] MEDS ORDERED: PT OWN MED DRAWER 7, Y5N ONE ×2 (09:50→21:40)
[2020-02-20] MEDS: THIAMINE HCL 100 MG TABLET (FP) PO SCH (09:52)
[2020-02-20] MEDS: ASPIRIN COATED 81 MG TABLET.EC PO SCH (09:52)
[2020-02-20] MEDS: CARVEDILOL 12.5 MG TABLET (FP) PO SCH ×2 (09:52→21:42)
[2020-02-20] MEDS: PANTOPRAZOLE 40 MG TABLET PO SCH (09:52)
[2020-02-20] MEDS: ENOXAPARIN NA (PORCINE) 40 MG/0.4 ML DISP.SYRIN SQ SCH (09:53)
[2020-02-20] MEDS: SACUBITRIL/VALSARTAN 97 MG-103 MG TABLET PO SCH ×2 (09:53→21:42)
[2020-02-20] MEDS: MULTIVITAMINS (DAILY MVI) TABLET (FP) PO SCH (09:53)
[2020-02-20] MEDS ORDERED: MAGNESIUM OXIDE 400 MG TABLET (FP) PO ONE (17:50)
[2020-02-21] MEDS ORDERED: chlordiazePOXIDE HCL 10 MG CAPSULE PO ONE (05:00)
[2020-02-21] MEDS: FUROSEMIDE 40 MG TABLET (FP) PO SCH ×2 (05:18→14:10)
[2020-02-21 07:19] LABS: HEMATOCRIT 36.7 % (35.4-49); HEMOGLOBIN 12.1 GM/dL (11.7-16.9); MCH 30.7 pg (25.7-33.7); MEAN PLT VOLUME 9.3 fl (7.5-11.1); PLATELET COUNT 237 K/MM3 (134-434); RBC 3.95 M/mm3 (4.00-5.60); RDW 19.5 % (11.9-15.9); WHITE BLOOD COUNT 5.1 K/mm3 (4.0-10.0)
[2020-02-21 07:21] LABS: POTASSIUM 3.6 mmol/L (3.5-5.1)
[2020-02-21 07:22] LABS: CALCIUM 8.5 mg/dL (8.5-10.1)
[2020-02-21 07:23] LABS: BLOOD UREA NITROGEN 15.1 mg/dL (7-18); MAGNESIUM 1.6 mg/dL (1.8-2.4)
[2020-02-21 07:25] LABS: CREATININE 1.4 mg/dL (0.55-1.3)
[2020-02-21 07:26] LABS: PHOSPHOROUS 3.4 mg/dL (2.5-4.9)
[2020-02-21] MEDS ORDERED: PT OWN MED DRAWER 7, Y5N ONE (09:33)
[2020-02-21] MEDS: THIAMINE HCL 100 MG TABLET (FP) PO SCH (09:37)
[2020-02-21] MEDS: PANTOPRAZOLE 40 MG TABLET PO SCH (09:37)
[2020-02-21] MEDS: CARVEDILOL 12.5 MG TABLET (FP) PO SCH (09:37)
[2020-02-21] MEDS: MULTIVITAMINS (DAILY MVI) TABLET (FP) PO SCH (09:38)
[2020-02-21] MEDS: ENOXAPARIN NA (PORCINE) 40 MG/0.4 ML DISP.SYRIN SQ SCH (09:38)
[2020-02-21] MEDS: SACUBITRIL/VALSARTAN 97 MG-103 MG TABLET PO SCH (09:38)
[2020-02-21] MEDS: ASPIRIN COATED 81 MG TABLET.EC PO SCH (09:39)
[2020-02-21 09:42] VITALS: PULSE 65
[2020-02-21] MEDS ORDERED: MAGNESIUM OXIDE 400 MG TABLET (FP) PO SCH (10:00)
[2020-02-21] MEDS ORDERED: FUROSEMIDE 40 MG TABLET (FP) PO SCH (10:00)
[2020-02-21 13:34] VITALS: BP 101/63; TEMP 97.4
[2020-02-21] MEDS ORDERED: MAGNESIUM OXIDE 400 MG TABLET (FP) PO ONE ×3 (17:37→18:15)
== END 2020-02-21 19:48 | disposition home health service (06) | DRG 314 ==
LOC: JER 09:29 → JERBED 17:52 → J4S 20:57
PROVIDERS: ATTEND Internal Medicine
DX: I42.6 Alcoholic cardiomyopathy (principal); J96.01 Acute respiratory failure with hypoxia; I50.23 Acute on chronic systolic (congestive) heart failure; I24.8 Other forms of acute ischemic heart disease; E87.2 Acidosis; F10.239 Alcohol dependence with withdrawal, unspecified; I11.0 Hypertensive heart disease with heart failure; R00.0 Tachycardia, unspecified; I48.0 Paroxysmal atrial fibrillation; E83.42 Hypomagnesemia; E66.9 Obesity, unspecified; Z68.29 Body mass index [BMI] 29.0-29.9, adult; E78.5 Hyperlipidemia, unspecified; E11.9 Type 2 diabetes mellitus without complications
CPT/HCPCS: 36415; 71045-TC-FY; 71275-TC; 80048; 80053; 80307; 81003; 82550; 82553; 82803; 83605; 83735; 83880; 84100; 84484; 85025; 85027; 85610; 85730; 87040; 87086; 93005; 93010; 93306-TC; 97116-GP; 97161-GP; 99285-25; C9803; Q9967; U0003

== ENCOUNTER 2020-02-25 18:42 | Emergency (ER) | payer OTHER ==
[2020-02-25 18:51] VITALS: TEMP 97.9; BMI 33.7
[2020-02-25 19:39] LABS: BASO % 0.9 % (0-2.0); EOS % 17.9 % (0-4.5); HEMATOCRIT 37.6 % (35.4-49); HEMOGLOBIN 12.2 GM/dL (11.7-16.9); LYMPH % 16.6 % (8-40); MCH 30.7 pg (25.7-33.7); MCHC 32.5 g/dl (32.0-35.9); MEAN CELL VOLUME 94.5 fl (80-96); MEAN PLT VOLUME 8.9 fl (7.5-11.1); MONO % 7.9 % (3.8-10.2); NEUT % 56.7 % (42.8-82.8); PLATELET COUNT 219 K/MM3 (134-434); RBC 3.98 M/mm3 (4.00-5.60); RDW 19.5 % (11.9-15.9); WHITE BLOOD COUNT 6.3 K/mm3 (4.0-10.0)
[2020-02-25 19:58] LABS: POTASSIUM 4.1 mmol/L (3.5-5.1)
[2020-02-25 20:00] LABS: BLOOD UREA NITROGEN 15.9 mg/dL (7-18); CALCIUM 8.8 mg/dL (8.5-10.1)
[2020-02-25 20:03] LABS: CREATININE 1.5 mg/dL (0.55-1.3)
[2020-02-25 20:06] LABS: BILIRUBIN,TOTAL 0.5 mg/dL (0.2-1); TOT PROT 6.9 g/dl (6.4-8.2)
[2020-02-25 20:07] LABS: VENOUS BASE EXCESS -0.4 mmol/L (-2-2); VENOUS O2 SATURATION 72.6 % (70-80); VENOUS PH 7.387 (7.310-7.410)
[2020-02-25] MEDS ORDERED: CARVEDILOL 12.5 MG TABLET (FP) PO ONE (20:40)
[2020-02-25] MEDS ORDERED: CARVEDILOL 12.5 MG TABLET (FP) ONE (20:54)
[2020-02-25] MEDS ORDERED: FUROSEMIDE 40 MG TABLET (FP) PO ONE (21:10)
[2020-02-25] MEDS ORDERED: FUROSEMIDE 40 MG TABLET (FP) ONE (21:14)
[2020-02-28 11:09] VITALS: BP 141/74; PULSE 93
== END 2020-02-26 01:04 | disposition home or self-care (01) ==
LOC: JER 18:42
DX: J44.9 Chronic obstructive pulmonary disease, unspecified (principal)
CPT/HCPCS: 36415; 71045-TC-FY; 80053; 82550; 82803; 84484; 85025; 93005; 93010; 99285-25

== ENCOUNTER 2020-03-20 18:45 | Emergency (ER) | payer OTHER ==
[2020-03-20 19:05] VITALS: BMI 31.5
[2020-03-20] MEDS ORDERED: CARVEDILOL 12.5 MG TABLET (FP) PO ONE (19:31)
[2020-03-20] MEDS ORDERED: FUROSEMIDE 40 MG TABLET (FP) PO ONE (19:32)
[2020-03-20] MEDS ORDERED: VALSARTAN 80 MG TABLET PO ONE (19:33)
[2020-03-20] MEDS ORDERED: CARVEDILOL 12.5 MG TABLET (FP) ONE (19:51)
[2020-03-20] MEDS ORDERED: FUROSEMIDE 40 MG TABLET (FP) ONE (19:52)
[2020-03-20] MEDS ORDERED: VALSARTAN 80 MG TABLET ONE (19:53)
[2020-03-20 20:42] LABS: BASO % 1.7 % (0-2.0); EOS % 5.1 % (0-4.5); HEMATOCRIT 41.3 % (35.4-49); HEMOGLOBIN 13.8 GM/dL (11.7-16.9); LYMPH % 39.4 % (8-40); MCH 31.8 pg (25.7-33.7); MCHC 33.5 g/dl (32.0-35.9); MONO % 13.2 % (3.8-10.2); NEUT % 40.6 % (42.8-82.8); PLATELET COUNT 320 K/MM3 (134-434); RBC 4.35 M/mm3 (4.00-5.60); RDW 18.2 % (11.9-15.9); WHITE BLOOD COUNT 3.8 K/mm3 (4.0-10.0)
[2020-03-20 20:49] LABS: INR 1.09 (0.83-1.09); PROTHROMBIN TIME (PATIENT) 13.4 SEC (9.7-13.0)
[2020-03-20 21:01] LABS: POTASSIUM 5.1 mmol/L (3.5-5.1)
[2020-03-20 21:03] LABS: CALCIUM 8.9 mg/dL (8.5-10.1)
[2020-03-20 21:04] LABS: ALBUMIN 3.4 g/dl (3.4-5.0); BLOOD UREA NITROGEN 13.6 mg/dL (7-18)
[2020-03-20 21:07] LABS: CREATININE 0.9 mg/dL (0.55-1.3)
[2020-03-20 21:08] LABS: BILIRUBIN,TOTAL 0.8 mg/dL (0.2-1); TOT PROT 7.7 g/dl (6.4-8.2)
[2020-03-21 00:23] VITALS: PULSE 89; TEMP 98.3
[2020-03-21 02:50] VITALS: BP 169/97
== END 2020-03-21 00:24 | disposition home or self-care (01) ==
LOC: JER 18:45
DX: R06.02 Shortness of breath (principal); I10 Essential (primary) hypertension
CPT/HCPCS: 36415; 71045-TC-FY; 80053; 82550; 82553; 84484; 85025; 85610; 93005; 93010; 99285-25

== ENCOUNTER 2020-05-15 07:16 | Emergency (ER) | payer OTHER ==
[2020-05-15 07:47] VITALS: BMI 31.4
[2020-05-15] MEDS ORDERED: ACETAMINOPHEN 1000 MG/100 ML VIAL (NON FORMULARY) IVPB ONE (08:29)
[2020-05-15] MEDS ORDERED: ACETAMINOPHEN INJECTION 100 ML IVPB ONE (08:47)
[2020-05-15 09:26] LABS: BASO % 1.1 % (0-2.0); EOS % 0.9 % (0-4.5); HEMOGLOBIN 12.4 GM/dL (11.7-16.9); LYMPH % 26.8 % (8-40); MCH 31.8 pg (25.7-33.7); MCHC 33.5 g/dl (32.0-35.9); MEAN PLT VOLUME 9.8 fl (7.5-11.1); MONO % 10.1 % (3.8-10.2); NEUT % 61.1 % (42.8-82.8); PLATELET COUNT 151 K/MM3 (134-434); RBC 3.89 M/mm3 (4.00-5.60); RDW 14.2 % (11.9-15.9); WHITE BLOOD COUNT 4.3 K/mm3 (4.0-10.0)
[2020-05-15 09:50] LABS: POTASSIUM 4.8 mmol/L (3.5-5.1)
[2020-05-15 09:52] LABS: CALCIUM 9.2 mg/dL (8.5-10.1)
[2020-05-15 09:53] LABS: ALBUMIN 3.3 g/dl (3.4-5.0); BLOOD UREA NITROGEN 12.6 mg/dL (7-18)
[2020-05-15 09:56] LABS: CREATININE 0.9 mg/dL (0.55-1.3)
[2020-05-15 09:57] LABS: BILIRUBIN,TOTAL 1.3 mg/dL (0.2-1); TOT PROT 7.4 g/dl (6.4-8.2)
[2020-05-15 10:30] VITALS: BP 172/102; PULSE 110; TEMP 97.9
== END 2020-05-15 11:31 | disposition home or self-care (01) ==
LOC: JER 07:16
PROC: 3E0333Z Introduction of Anti-inflammatory into Peripheral Vein, Percutaneous Approach (ICD-10-PCS; principal; 2020-05-15)
DX: M25.561 Pain in right knee (principal)
CPT/HCPCS: 36415; 80053; 85025; 99284-25; J0131

== ENCOUNTER 2020-06-19 13:27 | Observation (INO) | payer OTHER ==
[2020-06-19 15:38] LABS: BASO % 1.3 % (0-2.0); EOS % 4.4 % (0-4.5); HEMATOCRIT 46.2 % (35.4-49); HEMOGLOBIN 14.9 GM/dL (11.7-16.9); LYMPH % 27.7 % (8-40); MCH 30.3 pg (25.7-33.7); MCHC 32.2 g/dl (32.0-35.9); MEAN CELL VOLUME 94.2 fl (80-96); MEAN PLT VOLUME 9.2 fl (7.5-11.1); MONO % 7.6 % (3.8-10.2); PLATELET COUNT 285 K/MM3 (134-434); RDW 15.1 % (11.9-15.9); WHITE BLOOD COUNT 5.1 K/mm3 (4.0-10.0)
[2020-06-19 15:54] LABS: INR 1.53 (0.83-1.09); PROTHROMBIN TIME (PATIENT) 18.3 SEC (9.7-13.0)
[2020-06-19 15:57] LABS: ACTIVATED PTT 38.5 SECONDS (25.2-36.5)
[2020-06-19 15:58] LABS: POTASSIUM 4.1 mmol/L (3.5-5.1)
[2020-06-19 16:00] LABS: CALCIUM 10.1 mg/dL (8.5-10.1)
[2020-06-19 16:01] LABS: ALBUMIN 3.8 g/dl (3.4-5.0); BLOOD UREA NITROGEN 16.2 mg/dL (7-18)
[2020-06-19 16:04] LABS: CREATININE 1.1 mg/dL (0.55-1.3)
[2020-06-19 16:05] LABS: BILIRUBIN,TOTAL 0.9 mg/dL (0.2-1); TOT PROT 8.3 g/dl (6.4-8.2)
[2020-06-20 04:22] VITALS: BMI 28.3
[2020-06-20] MEDS ORDERED: ALBUTEROL SO4 HFA INHALER IH PRN (04:49)
[2020-06-20 08:05] LABS: BASO % 1.2 % (0-2.0); EOS % 6.1 % (0-4.5); HEMATOCRIT 41.8 % (35.4-49); HEMOGLOBIN 13.4 GM/dL (11.7-16.9); LYMPH % 31.2 % (8-40); MCH 30.3 pg (25.7-33.7); MCHC 32.1 g/dl (32.0-35.9); MEAN CELL VOLUME 94.3 fl (80-96); MEAN PLT VOLUME 9.3 fl (7.5-11.1); NEUT % 50.5 % (42.8-82.8); PLATELET COUNT 224 K/MM3 (134-434); RBC 4.44 M/mm3 (4.00-5.60); RDW 15.2 % (11.9-15.9)
[2020-06-20 08:22] LABS: POTASSIUM 3.8 mmol/L (3.5-5.1)
[2020-06-20 08:25] LABS: CALCIUM 9.4 mg/dL (8.5-10.1)
[2020-06-20 08:26] LABS: BLOOD UREA NITROGEN 16.4 mg/dL (7-18); MAGNESIUM 1.9 mg/dL (1.8-2.4)
[2020-06-20 08:29] LABS: CREATININE 0.9 mg/dL (0.55-1.3)
[2020-06-20 08:31] LABS: BILIRUBIN,TOTAL 0.7 mg/dL (0.2-1); TOT PROT 6.6 g/dl (6.4-8.2)
[2020-06-20] MEDS ORDERED: amLODIPine BESYLATE 10 MG TABLET (FP) PO SCH (10:00)
[2020-06-20] MEDS ORDERED: FUROSEMIDE 40 MG TABLET (FP) PO SCH (10:00)
[2020-06-20] MEDS ORDERED: FOLIC ACID 1 MG TABLET (FP) PO SCH (10:00)
[2020-06-20] MEDS ORDERED: SACUBITRIL/VALSARTAN 97 MG-103 MG TABLET PO SCH (10:00)
[2020-06-20] MEDS ORDERED: ENOXAPARIN NA (PORCINE) 40 MG/0.4 ML DISP.SYRIN SQ SCH (10:00)
[2020-06-20] MEDS ORDERED: FAMOTIDINE 20 MG TABLET PO SCH (10:00)
[2020-06-20] MEDS ORDERED: TIOTROPIUM BROMIDE 2.5 MCG (SPIRIVA) RESPIMAT INHALER IH SCH (10:00)
[2020-06-20] MEDS ORDERED: ASPIRIN COATED 81 MG TABLET.EC PO SCH (10:00)
[2020-06-20] MEDS ORDERED: DIGOXIN 250 MCG/5 ML LIQUID PO SCH (10:00)
[2020-06-20] MEDS ORDERED: APIXABAN 5 MG TABLET PO SCH (10:00)
[2020-06-20] MEDS ORDERED: POLYETHYLENE GLYCOL 3350 119 GM BTL PO SCH (11:00)
[2020-06-20] MEDS: hydrALAZINE HCL 25 MG TABLET (FP) PO SCH ×3 (11:09→17:35)
[2020-06-20] MEDS ORDERED: METOPROLOL TARTRATE 50 MG TABLET (FP) PO SCH (14:00)
[2020-06-20 19:05] VITALS: BP 141/75; PULSE 77; TEMP 97.9
[2020-06-20] MEDS ORDERED: ATORVASTATIN CA 40 MG TABLET (FP) PO SCH (22:00)
== END 2020-06-20 19:17 ==
LOC: JER 13:27 → INTOOBSV 20:49 → JERBED 20:49 → J4W 06-20 03:50
PROVIDERS: ADMIT Internal Medicine; ATTEND Family Medicine
DX: I11.0 Hypertensive heart disease with heart failure (principal); K59.00 Constipation, unspecified; J44.9 Chronic obstructive pulmonary disease, unspecified; I48.91 Unspecified atrial fibrillation; F10.10 Alcohol abuse, uncomplicated; E11.9 Type 2 diabetes mellitus without complications; R42 Dizziness and giddiness; I25.10 Atherosclerotic heart disease of native coronary artery without angina pectoris; Z96.651 Presence of right artificial knee joint; Z87.891 Personal history of nicotine dependence; E78.5 Hyperlipidemia, unspecified
CPT/HCPCS: 36415; 70450-TC; 71045-TC-FY; 72125-TC; 76937; 80053; 80162; 83735; 84484; 85025; 85610; 85730; 93005; 93010; 93880-TC; 99285-25; C9803; G0378; U0003

== ENCOUNTER 2020-09-06 22:59 | Observation (INO) | payer OTHER ==
[2020-09-06 23:45] VITALS: BMI 26.5
[2020-09-07 00:59] LABS: BASO % 0.7 % (0-2.0); EOS % 7.1 % (0-4.5); HEMATOCRIT 32.8 % (35.4-49); HEMOGLOBIN 10.7 GM/dL (11.7-16.9); LYMPH % 39.9 % (8-40); MCH 32.3 pg (25.7-33.7); MCHC 32.7 g/dl (32.0-35.9); MEAN CELL VOLUME 98.7 fl (80-96); MEAN PLT VOLUME 8.9 fl (7.5-11.1); MONO % 10.4 % (3.8-10.2); NEUT % 41.9 % (42.8-82.8); PLATELET COUNT 178 K/MM3 (134-434); RBC 3.33 M/mm3 (4.00-5.60); RDW 19.1 % (11.9-15.9); WHITE BLOOD COUNT 4.1 K/mm3 (4.0-10.0)
[2020-09-07 01:19] LABS: ALBUMIN 3.1 g/dl (3.4-5.0); CALCIUM 8.4 mg/dL (8.5-10.1)
[2020-09-07 01:20] LABS: BLOOD UREA NITROGEN 16.7 mg/dL (7-18)
[2020-09-07 01:23] LABS: CREATININE 1.1 mg/dL (0.55-1.3)
[2020-09-07 01:24] LABS: BILIRUBIN,TOTAL 0.4 mg/dL (0.2-1)
[2020-09-07 08:38] LABS: PH,URINE 6.5 (5.0-8.0); URINE APPEARANCE CLEAR; URINE BILIRUBIN NEGATIVE (NEGATIVE); URINE COLOR YELLOW; URINE GLUCOSE (UA) NEGATIVE (NEGATIVE); URINE KETONE NEGATIVE (NEGATIVE); URINE LEUK ESTERASE NEGATIVE (NEGATIVE); URINE NITRITE NEGATIVE (NEGATIVE); URINE PROTEIN NEGATIVE (NEGATIVE); URINE UROBILINOGEN 0.2 mg/dL (0.2-1.0)
[2020-09-07 08:44] LABS: OPIATES, URI NEGATIVE ng/ml (CUTOFF=300); PHENCYCLIDINE,URINE NEGATIVE ng/ml (CUTOFF=25)
[2020-09-07 08:47] LABS: COCAINE, UR NEGATIVE ng/ml (CUTOFF=300); METHADONE, UR NEGATIVE ng/ml (CUTOFF=300); URINE AMPHETAMINES NEGATIVE ng/ml (CUTOFF=500); URINE BARBITURATES NEGATIVE ng/ml (CUTOFF=200); URINE BENZODIAZEPINES NEGATIVE ng/ml (CUTOFF=200)
[2020-09-07] MEDS ORDERED: ALBUTEROL SO4 2.5/IPRATROPIUM 0.5 INH SOL 3 ML VIAL.NEB. NEB PRN (09:46)
[2020-09-07] MEDS ORDERED: ACETAMINOPHEN 325 MG TABLET (FP) PO PRN (09:46)
[2020-09-07] MEDS ORDERED: MAG HYDROX/AL HYDROX/SIMETH -MYLANTA- ORAL SUSPENSION PO PRN (09:46)
[2020-09-07] MEDS ORDERED: FOLIC ACID 1 MG TABLET (FP) PO SCH (10:00)
[2020-09-07] MEDS: POLYETHYLENE GLYCOL 3350 119 GM BTL PO SCH (10:18)
[2020-09-07] MEDS ORDERED: LACTULOSE 20 GM/30 ML UDC (FOR ORAL USE ONLY) ONE (10:29)
[2020-09-07] MEDS ORDERED: ASPIRIN COATED 81 MG TABLET.EC ONE (10:30)
[2020-09-07] MEDS ORDERED: FAMOTIDINE 20 MG TABLET ONE (10:30)
[2020-09-07] MEDS ORDERED: amLODIPine BESYLATE 5 MG TABLET (FP) ONE (10:30)
[2020-09-07] MEDS ORDERED: APIXABAN 5 MG TABLET ONE (10:30)
[2020-09-07] MEDS ORDERED: FOLIC ACID 1 MG TABLET (FP) ONE (10:31)
[2020-09-07] MEDS ORDERED: METOPROLOL TARTRATE 50 MG TABLET (FP) ONE (10:31)
[2020-09-07] MEDS: ASPIRIN COATED 81 MG TABLET.EC PO SCH (10:35)
[2020-09-07] MEDS: FOLIC ACID 1 MG TABLET (FP) PO SCH (10:35)
[2020-09-07] MEDS: MULTIVITAMINS (DAILY MVI) TABLET (FP) PO SCH (10:35)
[2020-09-07] MEDS: FAMOTIDINE 20 MG TABLET PO SCH (10:35)
[2020-09-07] MEDS: METOPROLOL TARTRATE 50 MG TABLET (FP) PO SCH ×3 (10:35→21:20)
[2020-09-07] MEDS: THIAMINE HCL 100 MG TABLET (FP) PO SCH (10:35)
[2020-09-07] MEDS: amLODIPine BESYLATE 5 MG TABLET (FP) PO SCH (10:35)
[2020-09-07] MEDS: APIXABAN 5 MG TABLET PO SCH ×2 (10:35→21:20)
[2020-09-07] MEDS: LACTULOSE 20 GM/30 ML UDC (FOR ORAL USE ONLY) PO SCH ×2 (10:35→21:19)
[2020-09-07 13:26] LABS: HEMATOCRIT 34.5 % (35.4-49); HEMOGLOBIN 11.3 GM/dL (11.7-16.9); MCH 32.5 pg (25.7-33.7); MCHC 32.7 g/dl (32.0-35.9); MEAN CELL VOLUME 99.4 fl (80-96); MEAN PLT VOLUME 9.3 fl (7.5-11.1); PLATELET COUNT 171 K/MM3 (134-434); RBC 3.47 M/mm3 (4.00-5.60); RDW 18.9 % (11.9-15.9); WHITE BLOOD COUNT 4.4 K/mm3 (4.0-10.0)
[2020-09-07] MEDS: SACUBITRIL/VALSARTAN 97 MG-103 MG TABLET PO SCH ×2 (14:15→22:44)
[2020-09-07] MEDS ORDERED: LORazepam 2 MG/ML SDV VIAL IVPUSH PRN (18:37)
[2020-09-07] MEDS: LORazepam 1 MG TABLET PO PRN ×2 (19:09→23:26)
[2020-09-07] MEDS: ATORVASTATIN CA 40 MG TABLET (FP) PO SCH (21:20)
[2020-09-08] MEDS: METOPROLOL TARTRATE 50 MG TABLET (FP) PO SCH ×3 (06:19→22:23)
[2020-09-08 07:14] LABS: BASO % 1.3 % (0-2.0); EOS % 5.7 % (0-4.5); HEMATOCRIT 36.2 % (35.4-49); HEMOGLOBIN 12.1 GM/dL (11.7-16.9); LYMPH % 36.9 % (8-40); MCH 32.8 pg (25.7-33.7); MCHC 33.3 g/dl (32.0-35.9); MEAN CELL VOLUME 98.4 fl (80-96); MEAN PLT VOLUME 8.9 fl (7.5-11.1); MONO % 10.5 % (3.8-10.2); NEUT % 45.6 % (42.8-82.8); PLATELET COUNT 190 K/MM3 (134-434); RBC 3.68 M/mm3 (4.00-5.60); RDW 18.7 % (11.9-15.9); WHITE BLOOD COUNT 4.8 K/mm3 (4.0-10.0)
[2020-09-08 07:57] LABS: ALBUMIN 3.3 g/dl (3.4-5.0); BLOOD UREA NITROGEN 12.1 mg/dL (7-18); CALCIUM 8.6 mg/dL (8.5-10.1)
[2020-09-08 07:59] LABS: BILIRUBIN,TOTAL 1.1 mg/dL (0.2-1); TOT PROT 7.4 g/dl (6.4-8.2)
[2020-09-08 08:01] LABS: CREATININE 0.8 mg/dL (0.55-1.3)
[2020-09-08] MEDS ORDERED: PT OWN MED DRAWER 7, Y5N ONE ×2 (09:01→10:34)
[2020-09-08] MEDS: MULTIVITAMINS (DAILY MVI) TABLET (FP) PO SCH (09:16)
[2020-09-08] MEDS: amLODIPine BESYLATE 5 MG TABLET (FP) PO SCH (09:16)
[2020-09-08] MEDS: THIAMINE HCL 100 MG TABLET (FP) PO SCH (09:16)
[2020-09-08] MEDS: FAMOTIDINE 20 MG TABLET PO SCH (09:16)
[2020-09-08] MEDS: ASPIRIN COATED 81 MG TABLET.EC PO SCH (09:16)
[2020-09-08] MEDS: FOLIC ACID 1 MG TABLET (FP) PO SCH (09:16)
[2020-09-08] MEDS: APIXABAN 5 MG TABLET PO SCH ×2 (09:16→22:23)
[2020-09-08] MEDS: LACTULOSE 20 GM/30 ML UDC (FOR ORAL USE ONLY) PO SCH ×2 (09:16→22:23)
[2020-09-08] MEDS: POLYETHYLENE GLYCOL 3350 119 GM BTL PO SCH (09:17)
[2020-09-08] MEDS: SACUBITRIL/VALSARTAN 97 MG-103 MG TABLET PO SCH ×2 (11:13→22:28)
[2020-09-08] MEDS: CYANOCOBALAMIN (VITAMIN B-12) 1000 MCG/1 ML VIAL IM SCH (12:10)
[2020-09-08] MEDS: ATORVASTATIN CA 40 MG TABLET (FP) PO SCH (22:23)
[2020-09-09] MEDS: LORazepam 1 MG TABLET PO PRN ×5 (00:09→21:55)
[2020-09-09] MEDS: METOPROLOL TARTRATE 50 MG TABLET (FP) PO SCH ×3 (06:08→21:49)
[2020-09-09] MEDS: THIAMINE HCL 100 MG TABLET (FP) PO SCH (08:59)
[2020-09-09] MEDS: ASPIRIN COATED 81 MG TABLET.EC PO SCH (08:59)
[2020-09-09] MEDS: amLODIPine BESYLATE 5 MG TABLET (FP) PO SCH (08:59)
[2020-09-09] MEDS: MULTIVITAMINS (DAILY MVI) TABLET (FP) PO SCH (08:59)
[2020-09-09] MEDS: FOLIC ACID 1 MG TABLET (FP) PO SCH (08:59)
[2020-09-09] MEDS: APIXABAN 5 MG TABLET PO SCH ×2 (08:59→21:49)
[2020-09-09] MEDS: FAMOTIDINE 20 MG TABLET PO SCH (08:59)
[2020-09-09] MEDS: LACTULOSE 20 GM/30 ML UDC (FOR ORAL USE ONLY) PO SCH ×2 (09:00→21:49)
[2020-09-09] MEDS: POLYETHYLENE GLYCOL 3350 119 GM BTL PO SCH (09:46)
[2020-09-09] MEDS: SACUBITRIL/VALSARTAN 97 MG-103 MG TABLET PO SCH ×2 (09:46→21:49)
[2020-09-09] MEDS: CYANOCOBALAMIN (VITAMIN B-12) 1000 MCG/1 ML VIAL IM SCH (10:00)
[2020-09-09] MEDS ORDERED: PT OWN MED DRAWER 7, Y5N ONE (21:39)
[2020-09-09] MEDS: ATORVASTATIN CA 40 MG TABLET (FP) PO SCH (21:49)
[2020-09-09] MEDS ORDERED: MAG HYDROX/AL HYDROX/SIMETH 30 ML UNIT-DOSE CUP PO PRN (23:58)
[2020-09-10] MEDS ORDERED: LORazepam 0.5 MG TABLET PO PRN
[2020-09-10 06:03] VITALS: PULSE 88; TEMP 98
[2020-09-10] MEDS: METOPROLOL TARTRATE 50 MG TABLET (FP) PO SCH (06:30)
[2020-09-10 08:10] VITALS: BP 134/80
[2020-09-10] MEDS ORDERED: PT OWN MED DRAWER 7, Y5N ONE (08:40)
[2020-09-10] MEDS: amLODIPine BESYLATE 5 MG TABLET (FP) PO SCH (09:08)
[2020-09-10] MEDS: THIAMINE HCL 100 MG TABLET (FP) PO SCH (09:08)
[2020-09-10] MEDS: FAMOTIDINE 20 MG TABLET PO SCH (09:08)
[2020-09-10] MEDS: MULTIVITAMINS (DAILY MVI) TABLET (FP) PO SCH (09:08)
[2020-09-10] MEDS: LACTULOSE 20 GM/30 ML UDC (FOR ORAL USE ONLY) PO SCH (09:08)
[2020-09-10] MEDS: ASPIRIN COATED 81 MG TABLET.EC PO SCH (09:08)
[2020-09-10] MEDS: APIXABAN 5 MG TABLET PO SCH (09:08)
[2020-09-10] MEDS: FOLIC ACID 1 MG TABLET (FP) PO SCH (09:08)
[2020-09-10] MEDS: SACUBITRIL/VALSARTAN 97 MG-103 MG TABLET PO SCH (09:09)
[2020-09-10] MEDS: CYANOCOBALAMIN (VITAMIN B-12) 1000 MCG/1 ML VIAL IM SCH (09:11)
[2020-09-10] MEDS: POLYETHYLENE GLYCOL 3350 119 GM BTL PO SCH (09:11)
== END 2020-09-10 12:40 | disposition home health service (06) ==
LOC: JER 22:59 → JERBED 09-07 04:10 → J4W 09-07 13:14
PROVIDERS: ADMIT Internal Medicine; ATTEND Family Medicine
PROC: 3E023GC Introduction of Other Therapeutic Substance into Muscle, Percutaneous Approach (ICD-10-PCS; principal; 2020-09-07)
DX: S09.90XA Unspecified injury of head, initial encounter (principal); I48.91 Unspecified atrial fibrillation; J44.9 Chronic obstructive pulmonary disease, unspecified; F10.10 Alcohol abuse, uncomplicated; W22.03XA Walked into furniture, initial encounter; Y93.89 Activity, other specified; Y92.092 Bedroom in other non-institutional residence as the place of occurrence of the external cause; R79.89 Other specified abnormal findings of blood chemistry; D64.9 Anemia, unspecified; Z29.9 Encounter for prophylactic measures, unspecified; Z96.651 Presence of right artificial knee joint; R73.03 Prediabetes; Z87.891 Personal history of nicotine dependence
CPT/HCPCS: 36415; 70450-TC; 71045-TC-FY; 72125-TC; 80053; 80307; 81003; 82140; 82550; 82553; 82607; 82728; 82747; 82962; 83036; 83540; 83550; 84484; 85014; 85025; 85027; 85045; 87086; 93005; 93010; 93880-TC; 96372; 97116-GP; 97162-GP; 99285-25; C9803; G0378; U0003; U0005